=== PATIENT | male | born 1945 | race Caucasian/White ===

== ENCOUNTER 2020-11-24 10:51 | Emergency (ER) | payer MEDICARE, SELFPAY ==
[2020-11-24 10:53] VITALS: BP 155/78; PULSE 47; RESP 17; TEMP 36.7; O2SAT 98; BMI 28.7
[2020-11-24 11:01] VITALS: PULSE 57; RESP 22; O2SAT 99
--- NOTE | 2020-11-24 11:06 | EKG12_ITS ---
Test Reason : CP Blood Pressure : / mmHG Vent. Rate : 050 BPM Atrial Rate : 050 BPM P-R Int : 202 ms QRS Dur : 092 ms QT Int : 440 ms P-R-T Axes : -06 -09 046 degrees QTc Int : 401 ms Sinus bradycardia Otherwise normal ECG Confirmed by NICCI ANDREWS, NELSON ([id number]), business editor KERA MACKENZIE ([id number]) on 11/29/2020 11:00:22 AM Referred By: DAVID Confirmed By:SOLOMON GRAJEDA MD
--- NOTE | 2020-11-24 11:20 | RAD_ITS ---
STUDY: X-RAY CHEST REASON FOR EXAM: Male, 75 years old. Chest pain x 5 days and fever TECHNIQUE: Single AP portable view of the chest. COMPARISON: Comparison is made with prior study dated 08/18/2014. FINDINGS: EKG electrodes are seen. Stable elevation of the right hemidiaphragm. The lungs are clear. There is no demonstrated pleural abnormality. Normal size heart. Normal mediastinum and destiny. Normal visualized pulmonary arteries. There is atherosclerotic tortuosity of the aortic arch and descending thoracic aorta. There are diffuse degenerative changes of the visualized thoracic spine. Normal visualized ribs, clavicles, and shoulders. There is no demonstrated abnormality of the visualized soft tissue structures of the upper abdomen. RAD/Chest 1 View (Portable) IMPRESSION: No acute abnormality is seen. Electronically Signed: Michael Sherwood, at 12:09 EST , Service support ,
[2020-11-24] MEDS: Aspirin 81 MG TAB.CHEW 324 MG PO (11:23)
--- NOTE | 2020-11-24 11:24 | ED.VISSUMM ---
- ER Visit Summary Date of Service: 11/24/20 Chief Complaint: Chest pain History of Present Illness: The patient is a 75 M history of CAD with IL 11 years ago had 2 cardiac stents at that time. Currently is on Plavix and aspirin. Also is a history of hypertension high cholesterol and a DVT 30 years ago after having leg trauma. Patiently patient states that he has had left-sided chest pain intermittently the last 5 days. Not associated with exertion. When it came on 5 days ago he was at rest. He denies any shortness of breath associated with it. No nausea nor diaphoresis. Currently symptom-free. The pain is not pleuritic. It is not made better or worse with deep breathing. He denies any hemoptysis. He denies any leg swelling. He denies any leg pain. He has not had any heart caths since his cardiac stents 11 years ago. Physical Examination: Older male no acute distress vital signs stable afebrile. Pulse ox 98% on room air no signs of hypoxia. Patient currently symptom-free. HEENT exam unremarkable. Neck nontender no lymphadenopathy. No JVD. Lungs clear to auscultation bilaterally. Heart regular rhythm rate about 50 no murmur. Chest wall is nontender. No subcu air or bruising. Abdomen soft nontender normal bowel sounds no peritoneal signs. Patient moving all 4 extremities. Neurovascularly intact. Equal symmetrical radial pulses. Calves are nontender without edema or cords. Neurologically is awake alert with no focal motor deficit. Test Results: EKG shows a sinus bradycardia rate of 50 with no signs of IL or ischemia. No change from prior EKG from 2013. Chest x-ray portable 1 view shows no acute abnormality. Normal cardiac silhouette. CBC is normal. White count of 7. Hemoglobin 14. Chemistries are normal. Troponin normal. Repeat exam patient is doing well 12:44 PM. Without complaints. He is comfortable being discharged home with outpatient follow-up. Emergency Department Course and Treatment: Patient with atypical nonreproducible chest pain. Currently symptom-free. Prior cardiac history. Prior DVT 30 years ago after trauma. He has had no recent travel, surgery or immobilization. He has no calf pain, cords nor edema. No undergo cardiac work-up. Treatment Plan: Follow-up with his primary care physician. Return if worsening chest pain or associated with exertion or feels worse. Disposition: Discharge Impression: Acute atypical chest pain History of CAD, IL and 2 cardiac stents History of hypertension This note was generated with [employer] dictation software. It may contain incorrect words, spelling, and punctuation that were not noted in review of the chart prior to signing ED Disposition - Plan for ED Patient: Referrals: Josue Fletcher MD [Primary Care Provider] -
[2020-11-24 11:41] LABS: Anion Gap 5 (5-15); BUN 13 mg/dL (7-18); BUN/Creat Ratio 13.8 RATIO (10-20); Calcium,Total 8.9 mg/dL (8.5-10.1); Chloride 105 mmol/L (98-107); Creatinine, Serum 0.94 mg/dL (0.70-1.30); EST Glomerular Filtration Rate 83 mL/min (>60); Est Glom Filt Rate - Afr Amer 100 mL/min (>60); Estimated Creatinine Clearance 70.11 ml/min; Glucose 116 mg/dL (74-106); Potassium 3.8 mmol/L (3.5-5.1); Sodium Level 140 mmol/L (136-145)
[2020-11-24 12:00] VITALS: BP 108/72; PULSE 59; RESP 18; O2SAT 99
[2020-11-24 12:15] LABS: Absolute Lymphocyte Count 1.61 X10^3/uL (0.83-4.51); Absolute Neutrophil Count 4.4 X10^3/uL (2.0-7.7); Basophil# 0.03 X10^3/uL; Basophil% 0.4 % (0-1); Eosinophil# 0.23 X10^3/uL; Eosinophils% 3.2 % (0-5); Hematocrit 43.2 % (40-54); Hemoglobin 14.4 g/dL (13.0-16.5); Lymphocyte # 1.61 X10^3/ul (4.0); Lymphocyte % 22.2 % (19-41); Mean Corp Hgb Conc 33.3 g/dL (32-36); Mean Corpuscular Hgb 31.7 pg (27.0-32.0); Mean Corpuscular Volume 95.2 fL (80-94); Mean Platelet Vol. 10.6 fl (6.2-12.0); Monocyte# 0.94 X10^3/uL; NRBC Flagged by Analyzer 0 % (0-5); Neutrophil # 4.38 X10^3/uL (2.7-7.7); Neutrophil % 60.5 % (47-70); Platelet Count 270 K/mm3 (150-450); RBC Distribution Width CV 12.4 % (11.6-14.6); RBC Distribution Width SD 43.1 fl (35.1-43.9); Red Blood Count 4.54 M/mm3 (4.6-6.2); White Blood Count 7.2 K/mm3 (4.4-11.0)
--- NOTE | 2020-11-24 12:48 | DCINST.ED_ITS ---
ED Disposition - Plan for ED Patient: Disposition: Home or Assisted Living Instructions: ED Chest Pain, Uncertain Cause Referrals: Josue Fletcher MD [Primary Care Provider] - 3-5 Days Additional Instructions: You have atypical chest pain. All your tests are unremarkable and normal. There is no signs of a heart attack. Your chest x-ray and EKG both look good. This does not appear to be cardiac or heart related chest pain but that is alwa ys still a possibility even with normal test. Follow-up with your primary care physician. If you are feeling worse such as more frequent chest pain, chest pain associated with exertion or shortness of breath or your overall feeling worse return to be reevaluated.
[2020-11-24 12:54] VITALS: BP 136/69; PULSE 59; RESP 18; O2SAT 99
== END 2020-11-24 12:55 | disposition home or self-care (01) ==
PROVIDERS: Emergency Provider Emergency Medicine; PCP Family Medicine
DX: R07.89 Other chest pain (principal); I25.10 Atherosclerotic heart disease of native coronary artery without angina pectoris; I25.2 Old myocardial infarction; I10 Essential (primary) hypertension; E78.00 Pure hypercholesterolemia, unspecified; Z79.02 Long term (current) use of antithrombotics/antiplatelets; Z79.82 Long term (current) use of aspirin; Z86.718 Personal history of other venous thrombosis and embolism; Z95.5 Presence of coronary angioplasty implant and graft
CPT/HCPCS: 71045; 80048; 84484; 85025; 93005; 99284; A4216

== ENCOUNTER 2022-06-20 02:09 | Emergency (ER) | payer MEDICARE, SELFPAY ==
[2022-06-20 02:11] VITALS: BP 144/70; PULSE 55; RESP 11; TEMP 37.1; O2SAT 99; BMI 28.5
--- NOTE | 2022-06-20 02:22 | EKG12_ITS ---
Test Reason : CP Blood Pressure : / mmHG Vent. Rate : 054 BPM Atrial Rate : 054 BPM P-R Int : 226 ms QRS Dur : 092 ms QT Int : 428 ms P-R-T Axes : 057 007 054 degrees QTc Int : 405 ms Sinus bradycardia with 1st degree A-V block Low voltage QRS (Limb Leads) Confirmed by NANCY ANDREWS, ROSELYN ([id number]), book editor JOSUÉ ALVARADO ([id number]) on 06/21/2022 12:49:38 PM Referred By: DAI Confirmed By:ROSELYN CRUZ MD
--- NOTE | 2022-06-20 02:22 | RAD_ITS ---
STUDY: X-RAY CHEST REASON FOR EXAM: Male, 77 years old. chest pain TECHNIQUE: AP portable. 2:23 AM. COMPARISON: 11/24/2020. FINDINGS: LUNGS: No consolidation. No pneumothorax. MEDIASTINUM: Aorta tortuous and atherosclerotic. CARDIAC SILHOUETTE: Not enlarged. BONES AND SOFT TISSUES: Degenerative changes in the dorsal spine. RAD/Chest 1 View (Portable) IMPRESSION: No evidence of active intrathoracic disease. Electronically Signed: Bianca Abdul MD at 2:36 EDT ,
--- NOTE | 2022-06-20 02:23 | ED.VIS.CHEST ---
HPI History of Present Illness Chief Complaint: Chest Pain Detail of Chief Complaint: Left-sided chest pain Informant: patient Onset/Context/Timing Onset: Yesterday (2299) Activity at onset: sudden Timing: Continuous Quality: Positive for - (Unable to describe) Location: Left Chest Current Severity: Mild Maximum Severity: Moderate Worsened By: Nothing Relieved By: Nothing Associated Symptoms: Positive for - (There is no radiation.); Negative for Nausea, Vomiting, Diaphoresis, Dyspnea, Cough, Fever, Lightheadedness, Acid Reflux or Palpitations Narrative Narrative: Patient is a 77-year-old male with history of coronary disease status post myocardial infarction 12 years ago. He has 2 stents. He took Tylenol prior to going to bed. This occurred after he went to bed. He states he has pain left side of his chest. It was mild got slightly worse. He took a nitro pill at 0108 with no effect. He denied associated symptoms or radiation of the discomfort. He denies black or maroon-colored stool. He denies history of hiatal hernia, reflux or peptic ulcer disease. He does have history of hypothyroidism, hypercholesterolemia and hypertension. He was given 4 baby aspirin's by squad. He denies orthopnea or PND. He denies pedal edema. He denies dyspnea on exertion. Prior Similar Symptoms: No Recent Illness/Hospitalization: No CVD Risk Factors: Positive for Hypertension and Hypercholesterolemia; Negative for Diabetes, Family History 1' </=55 or Smoking PE Risk Factors: Negative for Recent Travel/Surgery, Recent Immobilization, Prior DVT or PE, Cancer or OCP + Smoking + >/=35 TAD Risk Factors: Positive for Hypertension; Negative for Marfan's Syndrome or Family History PFSH PFS Medical History no medical history no medical history (History of coronary disease, hypercholesterolemia, hypertension hypothyroidism) Home Medications aspirin 81 mg chewable tablet 81 mg PO DAILY@0800 08/18/14 [History Last Taken 08/17/14 08:30] atorvastatin 20 mg tablet 20 mg PO QHS 08/18/14 [History Last Taken 08/18/14 00:30] clopidogrel 75 mg tablet 75 mg PO DAILY 08/18/14 [History Last Taken 08/17/14 08:30] levothyroxine 112 mcg tablet (Synthroid) 112 mcg PO DAILY 08/18/14 [History Last Taken 08/17/14 08:30] lisinopril 5 mg tablet 5 mg PO QHS 08/18/14 [History Last Taken 08/18/14 00:30] Allergy/AdvReac Type Severity Reaction Status Date / Time coconut AdvReac Vomiting Verified 05/26/22 16:35 Surgical History no surgical history no surgical history (Patient states he has 2 stents.) Social History (Updated 06/20/22 @ 02:[address] Enmanuel Rivas MD) household members: spouse Smoking Status: Former smoker substance use type: does not use ROS ROS ED Constitutional Constitutional ED: Denies chills, fever(s), subjective, sweats or weight loss Eyes Eyes: Reports none ENT ENT ED: Denies ear pain, rhinorrhea or sore throat Cardiovascular Cardiovascular: Reports as per HPI; Denies orthopnea or paroxysmal nocturnal dyspnea Respiratory/Chest Respiratory/Chest: Denies cough, dyspnea, dyspnea on exertion, orthopnea or paroxysmal nocturnal dyspnea Gastrointestinal Gastrointestinal: Denies abdominal pain, diarrhea, melena, nausea or vomiting Genitourinary Genitourinary ED: Denies dysuria, hematuria or urinary frequency Musculoskeletal Musculoskeletal: Reports back pain and other Details: Patient reports history of low back pain. ; Denies arthralgias, myalgias or neck pain Integumentary Denies rash Neurologic Neurologic: Denies paresthesias or weakness Endocrine Endocrinology: Denies cold intolerance or heat intolerance Hematologic/Lymphatic Hematologic/Lymphatic: Denies easy bleeding, easy bruising or lymphadenopathy EXAM Physical Exam Const Vital Signs: 06/20/22 02:11 06/20/22 02:17 06/20/22 02:30 Temperature 98.7 F Temperature Source Temporal Pulse Rate 55 L Respiratory Rate 11 L Blood Pressure 144/70 H Blood Pressure Mean 94 Pulse Ox 99 97 Oxygen Delivery Method Room Air Room Air Room Air 06/20/22 03:08 06/20/22 04:01 06/20/22 04:04 Temperature Temperature Source Pulse Rate 52 L 51 L Respiratory Rate 17 16 Blood Pressure 126/65 H 124/64 H 124/64 H Blood Pressure Mean 85 84 84 Pulse Ox 97 95 Oxygen Delivery Method Room Air Room Air Positive well nourished and well developed General Appearance ED: well developed; Negative for pallor HEENT Reports moist mucous membranes HEENT Narrative: Ears normal. Nares patent. Mucosa moist. normocephalic and atraumatic Eyes PERRL and EOMs intact bilaterally General Eye ED: Negative for pale conjunctiva or scleral icterus Neck no lymphadenopathy, supple and no JVD Chest Wall inspection of chest normal and palpation of chest normal Resp normal respiratory effort and clear to auscultation bilaterally Cardio regular rhythm, S1 normal heart sound, S2 normal heart sound and no murmurs Rate: bradycardia Peripheral Pulses: pulses 2+ throughout GI normal to inspection, nondistended, normoactive bowel sounds, soft to palpation, non-tender and non-distended Palpation: Negative for splenomegaly or mass Back/Spine no CVA tenderness and no thoracic nor lumbar tenderness Extremity normal to inspection Extremity Narrative: PT and DP pulse are 2+ and symmetric. General Extremety ED: Negative for edema, pulses abnormal or tenderness General Extremity: Negative for edema or pulses abnormal Neuro oriented x3, CN's II-XII intact bilaterally and no sensory deficits noted Sensorium / Orientation: awake and alert Psych mental status grossly normal Skin no rashes or lesions noted and no wounds General Skin Exam: Negative for jaundice, pallor or other MDM MDM MDM Narrative Medical decision making narrative: Patient presents with atypical left-sided chest pain. Since he does have risk factors for coronary disease will obtain EKG, troponin and appropriate blood work. He was not given aspirin since he received 4 prior to arrival. Lab Data Attestation: I reviewed the patient's lab results. Lab results narrative: CBC is unremarkable. H&H 12.6 and 38.2 which is baseline. Basic metabolic panel is remarkable for glucose of 123. Troponin is normal at 20 however will need a 2-hour troponin. 2-hour troponin is 20. Delta is 0. Therefore, will discharge patient to home Labs: Laboratory Results - last 24 hr 06/20/22 06/20/22 06/20/22 02:20 02:20 04:30 WBC 8.7 RBC 3.94 L Hgb 12.6 L Hct 38.2 L MCV 97.0 H MCH 32.0 MCHC 33.0 RDW Std Deviation 45.1 H RDW Coeff of Kiko 12.5 Plt Count 235 MPV 10.2 Immature Gran % (Auto) 0.500 Neut % (Auto) 59.3 Lymph % (Auto) 23.8 [place] % (Auto) 13.0 H Eos % (Auto) 3.1 Baso % (Auto) 0.3 Absolute Neuts (auto) 5.2 Absolute Lymphs (auto) 2.08 Nucleated RBC % 0 Sodium 140 Potassium 3.7 Chloride 108 H Carbon Dioxide 28.0 Anion Gap 4 L BUN 16 Creatinine 0.77 Estim Creat Clear Calc 63.88 Est GFR (MDRD) Af Amer 125 Est GFR (MDRD) Non-Af 104 BUN/Creatinine Ratio 20.7 H Glucose 123 H Calcium 8.4 L Troponin I High Sens 20 20 Radiography Chest X-Ray - ED: 1 View and Read by ED Physician (View portable chest x-ray was independently reviewed and interpreted by me at 0231. Cardiac silhouette and size unremarkable. Perihilar regions unremarkable. Osseous trucks unremarkable. The film is slightly rotated. There is no evidence of any acute pathology.) Diagnostic Testing: Clinical Impression(s) from Imaging Studies Chest X-Ray 06/20/22 02:22 IMPRESSION: No evidence of active intrathoracic disease. Electronically Signed: Bianca Abdul MD at 2:36 EDT Reading Location ID and State: [facility] / [place] Tel , Service support , Rhythm Strip Rhythm Strip: Sinus bradycardia Rate: 48 Ectopy: None EKG Initial EKG: Attestation: I personally reviewed and interpreted this EKG as follows: Interpretation: Sinus Bradycardia (Ventricular rate is 54. There is evidence of first-degree heart block with TX interval of 226 ms. QS duration 92 ms. QT duration 428 ms. [place] is normal. There is no ischemic changes noted.) Discharge Plan Triage Chief Complaint: Chest Pain ED Provider: Enmanuel Rivas Dx/Rx/DC Orders Clinical Impression: Left-sided chest pain, History of coronary artery disease, History of hypothyroidism Instructions: ED Chest Pain, Noncardiac, ED Chest Pain, Uncertain Cause Prescriptions: No Action clopidogrel 75 MG tablet 75 mg PO DAILY Label Comments: anti-platelet aspirin 81 MG tablet,chewable 81 mg PO DAILY@0800 Label Comments: heart health lisinopril 5 MG tablet 5 mg PO QHS Label Comments: blood pressure atorvastatin 20 MG tablet 20 mg PO QHS Label Comments: cholesterol levothyroxine [Synthroid] 112 MCG tablet 112 mcg PO DAILY Label Comments: synthroid Primary Care Provider: Josue Fletcher Referrals: Josue Fletcher MD [Primary Care Provider] - 3-5 Days Disposition Disposition: Home, Self Care
[2022-06-20 02:29] LABS: Absolute Lymphocyte Count 2.08 X10^3/uL (0.83-4.51); Absolute Neutrophil Count 5.2 X10^3/uL (2.0-7.7); Basophil# 0.03 X10^3/uL; Basophil% 0.3 % (0-1); Eosinophil# 0.27 X10^3/uL; Eosinophils% 3.1 % (0-5); Hematocrit 38.2 % (40-54); Hemoglobin 12.6 g/dL (13.0-16.5); Lymphocyte # 2.08 X10^3/ul (0.83-4.51); Lymphocyte % 23.8 % (19-41); Mean Platelet Vol. 10.2 fl (6.2-12.0); Monocyte# 1.14 X10^3/uL; NRBC Flagged by Analyzer 0 % (0-5); Neutrophil # 5.18 X10^3/uL (2.7-7.7); Neutrophil % 59.3 % (47-70); Platelet Count 235 K/mm3 (150-450); RBC Distribution Width CV 12.5 % (11.6-14.6); RBC Distribution Width SD 45.1 fl (35.1-43.9); Red Blood Count 3.94 M/mm3 (4.6-6.2); White Blood Count 8.7 K/mm3 (4.4-11.0)
[2022-06-20 02:30] VITALS: O2SAT 97
[2022-06-20 02:56] LABS: Anion Gap 4 (5-15); BUN 16 mg/dL (7-18); BUN/Creat Ratio 20.7 RATIO (10-20); Calcium,Total 8.4 mg/dL (8.5-10.1); Chloride 108 mmol/L (98-107); Creatinine, Serum 0.77 mg/dL (0.70-1.30); EST Glomerular Filtration Rate 104 mL/min (>60); Est Glom Filt Rate - Afr Amer 125 mL/min (>60); Estimated Creatinine Clearance 63.88 ml/min; Glucose 123 mg/dL (74-106); Potassium 3.7 mmol/L (3.5-5.1); Sodium Level 140 mmol/L (136-145); Troponin-I HS (w/2H Reflex) 20 pg/mL (3.0-78.0)
[2022-06-20 03:08] VITALS: BP 126/65; PULSE 52; RESP 17; O2SAT 97
[2022-06-20 04:01] VITALS: BP 124/64
[2022-06-20 04:04] VITALS: BP 124/64; PULSE 51; RESP 16; O2SAT 95
[2022-06-20 04:26] LABS: Reflex Troponin-HS? (from REC) Y
[2022-06-20 05:02] LABS: Troponin-I HS 20 pg/mL (3.0-78.0)
[2022-06-20 05:41] VITALS: BP 154/75; PULSE 50; RESP 15; O2SAT 99
== END 2022-06-20 05:43 | disposition home or self-care (01) ==
PROVIDERS: Emergency Provider Emergency Medicine; PCP Family Medicine; Visit Provider Emergency Medicine
DX: R07.9 Chest pain, unspecified (principal); I25.10 Atherosclerotic heart disease of native coronary artery without angina pectoris; Z87.891 Personal history of nicotine dependence; I10 Essential (primary) hypertension; E78.00 Pure hypercholesterolemia, unspecified; E03.9 Hypothyroidism, unspecified; I44.0 Atrioventricular block, first degree; I25.2 Old myocardial infarction
CPT/HCPCS: 71045; 80048; 84484; 85025; 93005; 99284; A4216

== ENCOUNTER 2025-01-23 15:24 | Emergency (ER) | payer MEDICARE, SELFPAY ==
[2025-01-23 15:25] VITALS: BP 94/62; PULSE 72; RESP 18; TEMP 35.3; O2SAT 99
--- NOTE | 2025-01-23 15:41 | EKG12_ITS ---
Test Reason : DIZZINESS Blood Pressure : */* mmHG Vent. Rate : 72 BPM Atrial Rate : 72 BPM P-R Int : 238 ms QRS Dur : 84 ms QT Int : 398 ms P-R-T Axes : 67 -1 53 degrees QTcB Int : 435 ms Sinus rhythm with 1st degree A-V block Otherwise normal ECG Confirmed by NICCI ANDREWS, NELSON ([id number]), editorial manager DAVIDA MCKENZIE ([id number]) on 01/26/2025 10:57:51 AM Referred By: Confirmed By: NELSON GRAJEDA MD
[2025-01-23] MEDS: 0.9% Normal Saline (1000mL) 1,000 ML 50 ML IV (16:33)
[2025-01-23 16:43] LABS: Absolute Lymphocyte Count 0.89 X10^3/uL (0.83-4.51); Absolute Neutrophil Count 8.9 X10^3/uL (2.0-7.7); Basophil# 0.06 X10^3/uL; Basophil% 0.5 % (0-1); Eosinophil# 0.11 X10^3/uL; Hematocrit 37.3 % (40-54); Hemoglobin 11.9 g/dL (13.0-16.5); Lymphocyte # 0.89 X10^3/ul (0.83-4.51); Lymphocyte % 8.1 % (19-41); Mean Corp Hgb Conc 31.9 g/dL (32-36); Mean Corpuscular Hgb 31.7 pg (27.0-32.0); Mean Corpuscular Volume 99.5 fL (80-94); Mean Platelet Vol. 10.5 fl (6.2-12.0); Monocyte# 0.93 X10^3/uL; Monocyte% 8.5 % (0-10); NRBC Flagged by Analyzer 0 % (0-5); Neutrophil # 8.86 X10^3/uL (2.7-7.7); Neutrophil % 81.2 % (47-70); Platelet Count 302 K/mm3 (150-450); RBC Distribution Width CV 13.3 % (11.6-14.6); RBC Distribution Width SD 48.3 fl (35.1-43.9); Red Blood Count 3.75 M/mm3 (4.6-6.2); White Blood Count 10.9 K/mm3 (4.4-11.0)
--- NOTE | 2025-01-23 16:45 | RAD_ITS ---
PROCEDURE: CHEST 1 VIEW (PORTABLE) 01/23/2025 REASON FOR EXAM: STROKE TECHNIQUE: Frontal view of the chest. COMPARISON: 06/20/2022 FINDINGS: Mild cardiomegaly. Mild atherosclerotic calcification of the thoracic aorta No focal consolidation. No pneumothorax. No pleural effusion. Degenerative changes are identified within the thoracic spine. Mild degenerative changes of the right glenohumeral joint. RAD/Chest 1 View (Portable) IMPRESSION: No Acute Findings. Reading Location: [facility]
[2025-01-23 16:50] LABS: Prothrombin Time (Protime)PT. 13.7 SECONDS (11.7-14.9)
[2025-01-23 16:51] LABS: Partial Thromboplast Time 27.2 Seconds (24.1-36.2)
--- NOTE | 2025-01-23 17:09 | EDS_ITS ---
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 Chief complaint was dizziness and in triage note was noted as well, however the patient was not dizzy he states that he was very lightheaded he was not spinning objects were not spinning.. According to the patient he was working in his shop earlier today he states that he was feeling very hot and not well he went up took a break ate late breakfast and eventually went back down to the shop. Today around 2:30 PM he noted that he was in his shop became very hot lightheaded with sweating and he states that he developed tunnel vision. He states that he had to sit down he states that he has not been lightheaded like this in a very long time he states that this has happened 1 other time. 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 Family bedside noted that she had to sit him down and prevent him from falling/passing out. Patient states that he not drink much water today. At the time of my exam today here in the emergency department he states that he is back to his baseline [facility] Medical History Dizziness Home Medications ?Medication ?Instructions ?Recorded ?Last Taken ?Type aspirin 81 mg chewable tablet 81 mg PO DAILY@0800 05/2508/17/14 08:30 History atorvastatin 20 mg tablet 20 mg PO QHS 08/18/14 00:30 History clopidogrel 75 mg tablet 75 mg PO DAILY 08/18/1404/25 08:30 History levothyroxine 112 mcg tablet 112 mcg PO DAILY 08/18/14 08/17/14 08:30 History (Synthroid) lisinopril 5 mg tablet 5 mg PO QHS 08/18/14 4 00:30 History Allergy/AdvReac Type Severity Reaction Status Date / Time coconut AdvReac Vomiting Verified 01/23/25 15:28 Social History household members: spouse Smoking Status: Former smoker substance use type: does not use ROS ROS ED ROS Narrative Constitutional: Complains of lightheadedness as noted above denies fevers chills, dizziness, headaches Eyes: Denies change in vision double vision blurry vision Cardiovascular: Denies chest pain or palpitations Respiratory: Denies coughing wheezing shortness of breath Abdomen: Denies abdominal pain nausea vomit diarrhea : Denies urinary symptoms Neurological: States that 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 causing unequal smile on the left this is not new denies any other numbness or tingling Musculoskeletal: Denies back pain Skin: Denies rashes or lesions EXAM Physical Exam Narrative Exam Narrative: General: Patient was lying in bed rest comfortably did not appear to be in acute distress Head: Atraumatic, normocephalic Eyes: PERRL bilaterally, EOMI bilaterally, no conjunctival injection noted Neck: Soft, supple, trachea midline Cardiovascular: Regular rate and rhythm no murmurs gallops rubs noted Respiratory: Clear to auscultation bilaterally Abdomen: Soft, nondistended, nontender to palpation Extremities: +5/5 strength noted in the bilateral upper and lower extremities, radial pulse +2/4 in the bilateral extremities, no pedal edema on exam Neurological: Patient following commands knew that he was at [facility] year is 2024. NIH is 0 GCS 15. Patient completed finger-nose test bilaterally, difficulty Skin: Warm, dry, intact no rashes or lesions noted Const Vital Signs: 01/23/25 15:25 01/23/25 18:00 01/23/25 18:13 Temperature 95.5 F L 98.3 F Temperature Source Oral Oral Pulse Rate 72 81 Respiratory Rate 18 18 Blood Pressure 94/62 140/71 H 140/71 H Blood Pressure Mean 72 94 94 Pulse Ox 99 97 98 Oxygen Delivery Method Room Air Room Air Room Air MDM MDM MDM Narrative Medical decision making narrative: Patient is a 79-year-old male who presented to the emergency department chief complaint of lightheadedness and almost passing out. On the differential diagnose includes but not limited to vasovagal syncope, dehydration, ACS. Once workup is obtained reviewed he will be reevaluated. Patient began IV fluids for hydration. With static vital signs will be obtained. Patient CBC reviewed and showed no evidence leukocytosis white blood count of 10.9, hemoglobin 1.9, plate count of 302. Patient's INR normal at 1, PT of 13.7. Patient sodium normal at 30, test normal 4.2, creatinine was 1.26. Patient's troponin was noted be 15 with a delta troponin noted to be 14. Patient EKG reviewed and showed sinus rhythm with a rate of 72 bpm with evidence of first-degree AV block. Patient's chest x-ray was reviewed by myself which s howed no acute cardiopulmonary processes this was also read by radiology. Patient ambulated well here in the emergency department he feels much better and would like to go home at this point time. Patient was advised to ensure that he is adequately hydrating with plenty of fluids. He is vies follow-up with his primary care physician and return with worsening symptoms or any concerns. He is agreeable this plan as well as family member bedside all question concerns answered he is discharged home in stable condition. Lab Data Labs: Laboratory Results - last 24 hr 01/23/25 01/23/25 01/23/25 16:30 16:30 18:04 WBC 10.9 RBC 3.75 L Hgb 11.9 L Hct 37.3 L MCV 99.5 H MCH 31.7 MCHC 31.9 L RDW Std Deviation 48.3 H RDW Coeff of Kiko 13.3 Plt Count 302 MPV 10.5 Immature Gran % (Auto) 0.700 Neut % (Auto) 81.2 H Lymph % (Auto) 8.1 L [place] % (Auto) 8.5 Eos % (Auto) 1.0 Baso % (Auto) 0.5 Absolute Neuts (auto) 8.9 H Absolute Lymphs (auto) 0.89 Nucleated RBC % 0 PT 13.7 INR 1.0 APTT 27.2 Sodium 138 Potassium 4.2 Chloride 98 Carbon Dioxide 24.0 Anion Gap 16 H BUN 24 H Creatinine 1.26 H Est GFR (MDRD) Non-Af 58 L BUN/Creatinine Ratio 18.8 Glucose 170 H Calcium 9.7 Troponin T High Sens 15 Cancelled Troponin T Hi Sens 2 Hr 14 Radiography Diagnostic Testing: Clinical Impression(s) from Imaging Studies Chest X-Ray 01/23/25 16:45 IMPRESSION: No Acute Findings. Reading Location: [facility] Discharge Plan Triage Chief Complaint: Dizziness ED Provider: Bk Espinosa Dx/Rx/DC Orders Clinical Impression: Vasovagal near-syncope Prescriptions: No Action clopidogrel 75 MG tablet 75 mg PO DAILY Patient Comments: anti-platelet aspirin 81 MG tablet,chewable 81 mg PO DAILY@0800 Patient Comments: heart health lisinopril 5 MG tablet 5 mg PO QHS Patient Comments: blood pressure atorvastatin 20 MG tablet 20 mg PO QHS Patient Comments: cholesterol levothyroxine [Synthroid] 112 MCG tablet 112 mcg PO DAILY Patient Comments: synthroid Primary Care Provider: Josue Fletcher Referrals: Josue Flecther MD [Primary Care Provider] - Activity Restrictions/Additional Instructions: Follow-up with your family physician outpatient setting. Return with worsening symptoms or any concerns. Ensure that you are drinking plenty water to stay hydrated. Print Language: Malawian Disposition Disposition: Home, Self Care
[2025-01-23 17:17] LABS: Anion Gap 16 (5-15); BUN 24 mg/dL (4-19); BUN/Creat Ratio 18.8 RATIO (10-20); Calcium,Total 9.7 mg/dL (7.6-11.0); Chloride 98 mmol/L (98-108); Creatinine, Serum 1.26 mg/dL (0.70-1.20); EST Glomerular Filtration Rate 58 (>60); Glucose 170 mg/dL (70-99); Potassium 4.2 mmol/L (3.3-5.1); Sodium Level 138 mmol/L (133-145)
[2025-01-23 18:00] VITALS: BP 140/71; O2SAT 97
[2025-01-23 18:06] VITALS: O2SAT 97
[2025-01-23 18:13] VITALS: BP 140/71; PULSE 81; RESP 18; TEMP 36.8; O2SAT 98
--- NOTE | 2025-01-23 19:05 | ED.RN ---
called lab to inquire about troponin- will result.
[2025-01-23 19:18] LABS: Troponin T High Sens 2 HR 14 ng/L (<=22)
[2025-01-23 19:32] LABS: Troponin T High Sensitivity 15 ng/L (<=22)
== END 2025-01-23 20:33 | disposition home or self-care (01) ==
PROVIDERS: Emergency Provider Emergency Medicine; PCP Family Medicine; Visit Provider Emergency Medicine
DX: R55 Syncope and collapse (principal); R42 Dizziness and giddiness; I44.0 Atrioventricular block, first degree; Z87.891 Personal history of nicotine dependence; I25.10 Atherosclerotic heart disease of native coronary artery without angina pectoris; Z95.1 Presence of aortocoronary bypass graft; G51.0 Bell's palsy
CPT/HCPCS: 71045; 80048; 84484; 85025; 85610; 85730; 93005; 99285; A4216

== ENCOUNTER 2025-06-05 21:25 | Emergency (ER) | payer MEDICARE, SELFPAY ==
[2025-06-05 21:26] VITALS: BP 152/82; PULSE 62; RESP 14; TEMP 35.5; O2SAT 100; BMI 27.1
--- NOTE | 2025-06-05 22:06 | EKG12_ITS ---
Test Reason : SYNC Blood Pressure : */* mmHG Vent. Rate : 59 BPM Atrial Rate : 59 BPM P-R Int : 232 ms QRS Dur : 92 ms QT Int : 410 ms P-R-T Axes : 43 -2 43 degrees QTcB Int : 405 ms Sinus bradycardia with 1st degree A-V block with occasional Premature ventricular complexes Otherwise normal ECG Confirmed by ENDER ANDREWS, ANDREA ([id number]), fashion editor DAVIDA MCKENZIE ([id number]) on 06/08/2025 9:01:17 AM Referred By: MARGARITO Confirmed By: ANDREA HANDLEY MD
--- NOTE | 2025-06-05 22:06 | CT_ITS ---
PROCEDURE: BRAIN/HEAD WITHOUT CONTRAST 06/05/2025 REASON FOR EXAM: SYNCOPE TECHNIQUE: BRAIN/HEAD WITHOUT CONTRAST Coronal and Sagittal reconstruction series were provided. One or more dose reduction techniques were used (e.g., Automated exposure control, adjustment of the mA and/or kV according to patient size, use of iterative reconstruction technique. RADIATION DOSE SUMMARY: CTDlvol: 44.99 mGy DLP: 829.85 mGycm COMPARISON: None. FINDINGS: No acute intracranial hemorrhage, extra-axial collection, mass effect or acute infarct. Mild age-appropriate generalized brain parenchymal volume loss. Absent [place] ocular lenses. Atherosclerotic vascular calcifications. Intact skull base and calvarium. Clear paranasal sinuses and mastoid air cells. CT/Brain/Head without Contrast IMPRESSION: No acute intracranial abnormality. Reading Location: [id number]
--- NOTE | 2025-06-05 22:08 | EDS_ITS ---
HPI History of Present Illness Chief Complaint: Syncope Informant: patient and spouse/S.O. Narrative Narrative: Patient is an 80-year-old male with past medical history of hypothyroidism hyperlipidemia and CAD. He states that today he got up from his chair to use the bathroom when he did so and took his shoes off and sat down and put his feet up. He states as he did this he had a sensation where everything was going dark and he felt like his body was buzzing. He states that this lasted just a few seconds and resolved but seem to occur multiple times. Secondary to this he was brought in for evaluation. Patient states there is no palpitations or chest discomfort no headache no recent bouts of nausea vomiting diarrhea or blood noted within his urine or stool. At time of arrival in ER patient reports he feels normal. [facility] Medical History (Updated 06/05/25 @ 23:[address] Akshat Calderón DO) Diabetes Hypertension Hyperlipemia Dizziness Home Medications ?Medication ?Instructions ?Recorded ?Last Taken ?Type aspirin 81 mg chewable tablet 81 mg PO DAILY@0800 10/05/2508/17/14 08:30 History atorvastatin 20 mg tablet 20 mg PO QHS 08/18/14 00:30 History levothyroxine 112 mcg tablet 112 mcg PO DAILY 08/18/14 08/17/14 08:30 History (Synthroid) lisinopril 5 mg tablet 5 mg PO QHS 08/18/14 4 00:30 History metformin 500 mg tablet,extended 1,000 mg PO DAILY Unknown History release 24 hr Allergy/AdvReac Type Severity Reaction Status Date / Time coconut AdvReac Vomiting Verified 06/05/25 21:31 Surgical History (Updated 06/05/25 @ 22:12 by Anahi Herbert) Hx of heart surgery History of left hip replacement History of bilateral knee replacement Social History household members: spouse Smoking Status: Former smoker substance use type: does not use ROS ROS ED Constitutional Constitutional ED: Denies chills or fever(s) Eyes Eyes: Reports change in vision ENT ENT ED: Denies sore throat Cardiovascular Cardiovascular: Reports other Details: Positive near syncope ; Denies chest pain, palpitations or racing heartbeat Respiratory/Chest Respiratory/Chest: Denies cough or dyspnea Gastrointestinal Gastrointestinal: Denies abdominal pain, diarrhea, nausea or vomiting Genitourinary Genitourinary ED: Denies dysuria or hematuria Musculoskeletal Musculoskeletal: Denies myalgias Integumentary Denies rash Neurologic Neurologic: Reports paresthesias; Denies headache(s) Hematologic/Lymphatic Hematologic/Lymphatic: Denies easy bleeding or easy bruising EXAM Physical Exam Const Vital Signs: 06/05/25 21:26 06/05/25 22:10 06/05/25 22:30 Temperature 96 F L Temperature Source Temporal Pulse Rate 62 62 Pulse Rate [Lying] Pulse Rate [Sitting (for 1 minute prior to obtaining)] Pulse Rate [Standing (for 1 minute prior to obtaining)] Respiratory Rate 14 18 Respiratory Effort Normal Non-Labored Respiratory Pattern Normal Blood Pressure 152/82 H 144/66 H Blood Pressure [Lying] Blood Pressure [Sitting (for 1 minute prior to obtaining)] Blood Pressure [Standing (for 1 minute prior to obtaining)] Blood Pressure Mean 105 92 Blood Pressure Mean [Lying] Blood Pressure Mean [Sitting (for 1 minute prior to obtaining)] Blood Pressure Mean [Standing (for 1 minute prior to obtaining)] Pulse Ox 100 98 Oxygen Delivery Method Room Air Room Air 06/05/25 22:50 06/05/25 23:40 Temperature 98 F Temperature Source Pulse Rate 62 Pulse Rate [Lying] 65 Pulse Rate [Sitting (for 1 minute prior to obtaining)] 60 Pulse Rate [Standing (for 1 minute prior to obtaining)] 76 Respiratory Rate 18 Respiratory Effort Respiratory Pattern Blood Pressure 164/83 H Blood Pressure [Lying] 143/70 H Blood Pressure [Sitting (for 1 minute prior to obtaining)] 137/66 H Blood Pressure [Standing (for 1 minute prior to obtaining)] 145/71 H Blood Pressure Mean 110 Blood Pressure Mean [Lying] 94 Blood Pressure Mean [Sitting (for 1 minute prior to obtaining)] 89 Blood Pressure Mean [Standing (for 1 minute prior to obtaining)] 95 Pulse Ox 96 Oxygen Delivery Method Positive well nourished and well developed General Appearance ED: well developed; Negative for pallor HEENT Reports dry mucous membranes HEENT Narrative: Normocephalic atraumatic No tongue or lip swelling no oral lesions no airway edema or compromise; no secondary findings in the posterior pharynx to suggest infection Mucous membranes are dry and tacky Mouth ED: Yes dry mucous membranes Mouth: dry mucous membranes Eyes PERRL and EOMs intact bilaterally General Eye ED: Negative for pale conjunctiva or scleral icterus Neck supple Resp normal respiratory effort and clear to auscultation bilaterally Cardio regular rate and regular rhythm Rate: other Other Details: Radial and carotid pulses are equal and symmetric GI normal to inspection, nondistended, normoactive bowel sounds, non-tender, non- distended and no masses Auscultation: normoactive bowel sounds Palpation: soft Extremity normal to inspection Neuro oriented x3, CN's II-XII intact bilaterally and no sensory deficits noted Neuro Narrative: GCS of 15 Cranial nerves II through XII are grossly intact without focal neurologic deficit No pronator drift no dysmetria no truncal ataxia No nystagmus NIH stroke scale score of 0 Sensorium / Orientation: alert Motor Exam: strength 5/5 throughout Psych mental status grossly normal Skin no rashes or lesions noted, no wounds and No skin turgor normal Skin Narrative: Skin turgor is increased General Skin Exam: Negative for jaundice or pallor MDM MDM MDM Narrative Medical decision making narrative: Patient arrived to the ER with stable vitals and normal neurologic exam reported feeling normal at the time of evaluation. His symptoms are consistent with near syncope and therefore basic labs and head CT were obtained. There is concern that he may have acute blood loss anemia versus acute kidney injury vers us electrolyte abnormality. There is concern he could have a spontaneous subarachnoid subdural hemorrhage or brain mass as a cause. An EKG was performed showing an occasional PVC but no acute ischemic findings or cardiac dysrhythmia. Patient's labs revealed no clinically significant findings and head CT was normal. Orthostatic vitals were technically normal as well going against dehydration as a potential cause. The patient was ambulated in the ER and did well with a steady gait. Just prior to discharge he reported having a similar sensation as he did at home. 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 This lasted only a few seconds and then resolved and he reported feeling normal once again. Because of this event and his history this is most likely the cause of his recurrent symptoms. I discussed the case with the food and beverage assistant manager on-call Dr. Galvez. He states that because the patient's vitals are stable at this time the labs revealed no clinically significant findings and the symptoms are short- lived there is no need for an emergent pacemaker and this can be followed up as an outpatient. Patient and family were informed of this and as he is hemodynamically stable at this time will be discharged. History & Record Review Discussion w/independent historian: Patient and Significant other Lab Data Attestation: I reviewed the patient's lab results. Labs: Laboratory Results - last 24 hr 06/05/25 21:38 WBC 8.8 RBC 4.35 L Hgb 13.3 Hct 40.2 MCV 92.4 MCH 30.6 MCHC 33.1 RDW Std Deviation 47.0 H RDW Coeff of Kiko 13.7 Plt Count 267 MPV 10.6 Immature Gran % (Auto) 0.600 Neut % (Auto) 59.0 Lymph % (Auto) 24.3 [place] % (Auto) 12.1 H Eos % (Auto) 3.7 Baso % (Auto) 0.3 Absolute Neuts (auto) 5.2 Absolute Lymphs (auto) 2.15 Nucleated RBC % 0 Sodium 139 Potassium 4.0 Chloride 100 Carbon Dioxide 25.1 Anion Gap 14 BUN 14 Creatinine 0.78 Estim Creat Clear Calc 76.04 Est GFR (MDRD) Non-Af 90 BUN/Creatinine Ratio 18.3 Glucose 155 H Calcium 9.3 Magnesium 2.4 H TSH 0.508 Radiography Diagnostic Testing: Clinical Impression(s) from Imaging Studies Brain CT 06/05/25 22:06 IMPRESSION: No acute intracranial abnormality. Reading Location: [facility] Management Discussion w/another healthcare provider: Social And Human Services Assistant Discharge Plan Triage Chief Complaint: Syncope ED Provider: Akshat Calderón Dx/Rx/DC Orders Clinical Impression: Near syncope, PVC (premature ventricular contraction), Hypothyroidism, Coronary artery disease Instructions: Causes of Syncope, Arrhythmias Prescriptions: No Action aspirin 81 MG tablet,chewable 81 mg PO DAILY@0800 Patient Comments: heart health lisinopril 5 MG tablet 5 mg PO QHS Patient Comments: blood pressure atorvastatin 20 MG tablet 20 mg PO QHS Patient Comments: cholesterol levothyroxine [Synthroid] 112 MCG tablet 112 mcg PO DAILY Patient Comments: synthroid metformin 500 mg tablet extended release 24 hr 1,000 mg PO DAILY Primary Care Provider: Josue Fletcher: Juan Galvez MD [Med Staff - Active Staff] - Josue Fletcher MD [Primary Care Provider] - Activity Restrictions/Additional Instructions: Your workup today revealed normal labs and a normal head CT. However while you were in the hospital you did have a short bout where your heart rate dropped into the 20s and 30s and you had a brief episode of a cardiac pause/dysrhythmia. This is the cause of your near passing out events. He will need to follow-up with Dr. Galvez to discuss the pros and cons of potential pacemaker placement. If your bouts of near syncope/passing out return and are short-lived like they were in the ER this is okay/acceptable. However if they are reoccurring frequently or they are lasting longer than you will need to be reseen as you may need an emergent pacemaker placed. Please continue all of your home medications as previously directed. Print Language: Divehi Disposition Disposition: Home, Self Care Discharge Date/Time: 06/05/25 23:51
--- OUTSIDE RECORDS SUMMARY | 2025-06-05 22:20 | XMS RPT_ITS | CCD ---
Author Organization [facility] Care Team Providers Care Overhead Crane Inspector Name Role Phone Josue Aguilera MD Primary Care Provider Josue Aguilera MD Primary Care Provider Josue Aguilera MD Unavailable Josue Aguilera MD Primary Care Provider Haagen CENTRAL SU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.Lacey COLBERT Unavailable Suppan CENTRAL SU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.Mayo COLBERTMichaela A Unavailable [phone] Suppalyssa CENTRAL SU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.SAYRA Michaela A Unavailable Andres PT, Karlie Unavailable Marcos West RN Unavailable Josue Aguilera Primary Care Unavailable Bk Espinosa Attending Unavailable Marcos West RN Unavailable Dr. Josue Aguilera MD Primary Care Provider Dr. Bk Espinosa DO Emergency Provider RAVIN HOUGH Referring Unavailable JOSUE AGUILERA Primary Care Unavailable RAVIN HOUGH Referring Unavailable JOSUE AGUILERA Primary Care Unavailable KEITH SOTO Consulting Unavailnelly e RAVIN HOUGH Admitting Unavailable RAVIN HOUGH Attending Unavailable JOSUE AGUILERA Primary Care Unavailable JOSUE AGUILERA Primary Care Unavailable MICHAELA HEART Attending Unavailable JOSUE AGUILERA Primary Care Unavailable MICHAELA HEART Attending Unavailable JOSUE AGUILERA Referring Unavailable JOSUE AGUILERA Primary Care Unavailable JOSUE AGUILERA Attending Unavailable JOSUE AGUILERA Primary Care Unavailable JOSUE AGUILERA Primary Care Unavailable RAVIN HOUGH Attending Unavailable JOSUE AGUILERA Primary Care Unavailable RAVIN HOUGH Attending Unavailable MICHAELA HEART Attending Unavailable JOSUE AGUILERA Primary Care Unavailable MICHAELA HEART Referring Unavailable JOSUE AGUILERA Primary Care Unavailable JOSUE AGUILERA Primary Care Unavailable RAVIN HOUGH Referring Unavailable JOSUE AGUILERA Attending Unavailable JOSUE AGUILERA Primary Care Unavailable MICHAELA HEART Referring Unavailable JOSUE AGUILERA Primary Care Unavailable RAVIN HOUGH Attending Unavailable JOSUE AGUILERA Primary Care Unavailable MICHAELA HEART Referring Unavailable Allergies Allergy Classification Reported Allergen(s) Allergy Type Date of Onset Reaction(s) Facility (20 sources) coconut allergenic extract; Translations: [COCONUT] Drug Allergy 02-11-2010 Vomiting [facility] (2 sources) Coconut extract Drug Allergy 05-26-2022 Vomiting [facility] (1 source) Coconut extract Drug Allergy 01-23-2025 [facility] Repository Medications Current Medications Medication Drug Class(es) Dates Sig (Normalized) Sig (Original) acetaminophen 500 mg oral tablet (5 sources) Start: 12-30-2024 End: 01-08-2025 take 2 tablets by mouth every eight hours as needed acetaminophen (TYLENOL EXTRA STRENGTH) 500 mg tablet Take 2 tablets by mouth every 8 hours as needed for pain for up to 7 days. 42 tablet 01/01/2025 10:46 AM EST 12/30/2024 01/08/2025 Active aspirin 81 mg delayed release oral tablet (20 sources) Platelet Aggregation Inhibitor, Nonsteroidal Anti-inflammatory Drug Start: 12-30-2024 End: 2025 take 1 tablet by mouth twice daily aspirin, enteric coated (ECOTRIN LOW STRENGTH) 81 mg EC tablet Take 1 tablet by mouth two times a day for 28 days. 56 tablet 01/01/2025 10:46 AM EST 12/30/2024 Active Start: 07-01-2024 End: 07-01-2025 aspirin, enteric coated (ASP IRIN, ENTERIC COATED) 81 mg EC tablet [The details of the medication are not available because there are pending changes by a home health clinician.] 30 tablet 11 07/01/2024 07/01/2025 Active Start: 12-03-2023 End: 07-01-2025 take 1 tablet by mouth once daily aspirin, enteric coated (ASPIRIN, ENTERIC COATED) 81 mg EC tablet Take 1 tablet by mouth once daily. 30 tablet 11 07/01/2024 07/01/2025 Active Start: 08-18-2014 take 1 tablet by ayla th once daily Aspirin 81 MG tablet,chewable Active 81 mg PO DAILY@0800 August 18, 2014 12:00am Start: 07-29-2012 End: 11-26-2023 take 1 tablet by mouth once daily at mealtime Aspirin 81 mg Tab Take 1 tablet by mouth once daily. Take with food. 30 tablet 11 07/29/2012 11/26/2023 Discontinued (Other) Comment on above: Take 1 tablet by ayla th once daily. Take with food. Take 1 tablet by ayla th once daily. atorvastatin 20 mg oral tablet (20 sources) HMG-CoA Reductase Inhibitor Start: 08-18-20 End: 10-06-20 take 1 tablet by mouth once daily atorvastatin (LIPITOR) 20 mg tablet Indications: Other hyperlipidemia Take 1 tablet by mouth once daily. 90 tablet 3 10/06/2024 Active Comment on above: Take 1 tablet by ayla th once daily. clopidogrel 75 mg oral tablet (20 sources) P2Y12 Platelet Inhibitor Start: 08-18-20 End: 01-08-20 take 1 tablet by mouth once daily Clopidogrel 75 MG tablet Active 75 mg PO DAILY August 18, 2014 12:00am Comment on above: Take 1 tablet by ayla th once daily. docusate sodium 100 mg oral capsule (18 sources) Start: 12-30-19 take 1 capsule by mouth twice daily docusate sodium (COLACE) 100 mg capsule Take 1 capsule by mouth two times a day. Take colace while taking narcotics to decrease your risk of constipation 60 capsule 01/01/2025 10:46 AM EST 12/30/2024 Active levothyroxine sodium 0.112 mg oral tablet (20 sources) l-Thyroxine Start: 12-12-19 End: 12-12-19 take 1 tablet by mouth once daily levothyroxine (SYNTHROID) 112 mcg tablet Indications: Hypothyroidism, unspecified type Take 1 tablet by mouth once daily. 90 tablet 3 12/12/2024 12/12/2025 Active Start: 08-18-2014 End: 07-01-2024 take 1 tablet by mouth once daily levothyroxine (SYNTHROID) 112 mcg tablet Indications: Hypothyroidism, unspecified type Take 1 tablet by mouth once daily. 90 tablet 1 07/01/2024 Active Comment on above: Take 1 tablet by ayla th once daily. lisinopril 5 mg oral tablet (20 sources) Angiotensin Converting Enzyme Inhibitor Start: 08-18-20 End: 10-06-20 take 1 tablet by mouth once daily lisinopril (ZESTRIL) 5 mg tablet Indications: 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 coronary artery of [place] heart without angina pectoris , Essential hypertension Take 1 tablet by mouth once daily. 90 tablet 3 10/06/2024 Active Comment on above: Take 1 tablet by ayla th once daily. meloxicam 15 mg oral tablet (10 sources) Nonsteroidal Anti-inflammatory Drug Start: 12-30-19 End: 01-16-20 take 1 tablet by mouth once daily meloxicam (MOBIC) 15 mg tablet Take 1 tablet by mouth once daily for 14 days. 14 tablet 01/01/2025 10:46 AM EST 12/30/2024 01/15/2025 Active 24 hr metFORMIN hydrochloride 500 mg extended release oral tablet (20 sources) Biguanide Start: 07-01-20 End: 01-16-20 take 2 tablets by mouth once daily at breakfast metFORMIN ER (GLUCOPHAGE XR) 500 mg 24 hr tablet Indications: Controlled type 2 diabetes mellitus without complication, without long-term current use of insulin (HCC) Take 2 tablets by mouth daily with breakfast. 180 tablet 3 01/15/2025 01/15/2026 Active Start: 06-02-2024 End: 07-02-2024 take 1 tablet by mouth once daily at breakfast metFORMIN ER (GLUMETZA) 500 mg 24 hr tablet Indications: Controlled type 2 diabetes mellitus without complication, without long-term current use of insulin (HCC) Take 1 tablet by mouth daily with breakfast. 30 tablet 06/02/2024 07/01/2024 Discontinued Start: 05-29-2024 End: 05-29-2025 take 1 tablet by mouth once daily at breakfast metFORMIN (GLUCOPHAGE) 500 mg tablet Indications: Controlled type 2 diabetes mellitus without complication, without long-term current use of insulin (HCC) Take 1 tablet by mouth daily with breakfast. 30 tablet 11 05/29/2024 06/02/2024 Discontinued (Clinical Decision) molnupiravir 200 mg capsule (4 sources) Start: 10-04-2023 End: 10-09-2023 take 4 capsules by mouth twice daily molnupiravir 200 mg capsule Indications: COVID-19 Take 4 capsules by mouth two times a day for 5 days. 40 capsule 0 10/04/2023 10/09/2023 Active Start: 10-04-2023 End: 10-04-2023 take 4 capsules by mouth twice daily molnupiravir 200 mg capsule Indications: COVID-19 Take 4 capsules by mouth two times a day for 5 days. 40 capsule 0 10/04/2023 10/04/2023 Discontinued Start: 10-03-2023 End: 10-08-2023 take 4 capsules by mouth twice daily molnupiravir 200 mg capsule Indications: COVID-19 Take 4 capsules by mouth two times a day for 5 days. 40 capsule 0 10/03/2023 10/08/2023 Active Comment on above: Take 4 capsules by m outh two times a day for 5 days. mupirocin 0.02 mg/mg topical ointment (1 source) RNA Synthetase Inhibitor Antibacterial Start: 12-10-19 End: 12-26-19 25 mupirocin (BACTROBAN) 2 % ointment Apply 0.5 inch with cotton swab (Q-tip) to each nostril in the morning and evening for 5 days prior to and including day of surgery. 22 g 12/10/2024 12/26/2024 Active naloxone hydrochloride 40 mg/ml nasal spray (18 sources) Opioid Antagonist Start: 12-30-19 25 naloxone 4 mg/actuation nasal spray (NARCAN) Use 1 spray in one nostril as needed for overdose. May repeat every 2 to 3 min in alternating nostrils until medical assistance is available 2 Each 12/30/2024 Active nitroglycerin 0.4 mg sublingual tablet (20 sources) Nitrate Vasodilator Start: 08-28-20 16 End: 05-05-20 21 nitroglycerin sublingual (NITROQUICK) 0.4 mg SL tablet Dissolve 1 tablet under the tongue every 5 minutes as needed for chest pain, up to 3 doses. If no relief, call 911. 3 Bottle of 25 1 05/05/2021 Active Comment on above: Dissolve 1 tablet un luke the tongue every 5 minutes as needed for chest pain, up to 3 doses. If no relief, call 911. oxyCODONE hydrochloride 5 mg oral tablet (5 sources) Opioid Agonist Start: 12-30-19 End: 01-08-20 take 1 tablet by mouth every four hours as needed oxyCODONE IR (ROXICODONE) 5 mg immediate release tablet Indications: Acute postoperative pain Take 1-2 tablets by mouth every 4 hours as needed for pain for up to 7 days. for pain. 50 tablet 01/01/2025 10:46 AM EST 12/30/2024 01/08/2025 Active pantoprazole 20 mg delayed release oral tablet (18 sources) Proton Pump Inhibitor Start: 12-30-19 End: 01-16-20 take 1 tablet by mouth once daily pantoprazole DR (PROTONIX) 20 mg tablet Take 1 tablet by mouth once daily for 14 days. 14 tablet 01/01/2025 10:46 AM EST 12/30/2024 Active Completed/Discontinued Medications Medication Drug Class(es) Dates Sig (Normalized) Sig (Original) benzonatate 100 mg oral capsule (13 sources) Non-narcotic Antitussive Start: 11-28-2024 End: 01-15-2025 take 1 capsule by mouth every eight hours as needed benzonatate (TESSALON PERLE) 100 mg capsule [The details of the medication are not available because there are pending changes by a home health clinician.] 30 capsule 11/28/2024 01/15/2025 Discontinued (Discontinued by Patient) Problems Active Problems Problem Classification Problem Date Documented Da te Episodic/Chronic Coronary atherosclerosis and other heart disease (20 sources) Coronary atherosclerosis; Translations: [Atherosclerotic heart disease of [place] coronary artery without angina pectoris] Onset: 02-21-2010 Resolved: 03-13-2022 Chronic Comment on above: Status post interven tion with 2 stents placement in 2004 at [facility] Diabetes mellitus without complication (20 sources) Type 2 diabetes mellitus without complication; Translations: [Type 2 diabetes mellitus without complications] Onset: 05-29-2024 05-29-2024 Chronic Diabetes mellitus without complication (1 source) Hyperglycemia; Translations: [Hyperglycemia, unspecified] Episodic Disorders of lipid metabolism (20 sources) Hyperlipidemia; Translations: [Other hyperlipidemia] Onset: 07-13-2009 Chronic Essential hypertension (20 sources) Essential hypertension; Translations: [Essential (primary) hypertension] Onset: 11-19-2019 Chronic Hyperplasia of prostate (20 sources) Nodular prostate without urinary obstruction; Translations: [Nodular prostate without lower urinary tract symptoms] Onset: 09-19-2007 02-18-2010 Chronic Osteoarthritis (5 sources) Osteoarthritis of left hip joint; Translations: [Unilateral primary osteoarthritis, left hip] Onset: 10-07-2024 10-07-2024 Chronic Other circulatory disease (2 sources) H/O: heart disorder; Translations: [Personal history of other diseases of the circulatory system] 06-28-2022 Episodic Other connective tissue disease (3 sources) History of repair of hip joint; Translations: [Presence of left artificial hip joint] 10-07-2024 Chronic Other connective tissue disease (20 sources) History of total knee arthroplasty; Translations: [Presence of artificial knee joint, bilateral] Onset: 01-14-2007 12-10-2024 Chronic Other connective tissue disease (18 sources) History of total hip arthroplasty; Translations: [Presence of left artificial hip joint] Onset: 12-31-2024 12-31-2024 Chronic Other connective tissue disease (1 source) Presence of left artificial hip joint; Translations: [Status post left hip replacement] Onset: 2025 Chronic Other connective tissue disease (1 source) Pain in right foot; Translations: [Pain in right foot] 05-20-2021 Episodic Other ear and sense organ disorders (1 source) Impacted cerumen in left ear; Translations: [Impacted cerumen, left ear] 05-28-2024 Episodic Other gastrointestinal disorders (18 sources) Dysphagia; Translations: [Dysphagia, unspecified] Onset: 01-02-2025 01-02-2025 Episodic Other non-traumatic joint disorders (1 source) Pain in right shoulder; Translations: [Pain in joint, shoulder region] 03-07-2021 Episodic Other non-traumatic joint disorders (4 sources) Hip pain; Translations: [Pain in left hip] 09-02-2024 Episodic Other non-traumatic joint disorders (2 sources) Pain in left hip; Translations: [Pain in left hip] Onset: 12-10-2024 Episodic Other nutritional; endocrine; and metabolic disorders (20 sources) Metabolic syndrome X; Translations: [Metabolic syndrome] Onset: 07-29-2012 Chronic Other screening for suspected conditions (not mental disorders or infectious disease) (3 sources) Patient encounter status; Translations: [Encounter for screening for malignant neoplasm of colon] 05-28-2024 Episodic Other upper respiratory disease (2 sources) Hoarse; Translations: [Dysphonia] 01-06-2025 Episodic Spondylosis; intervertebral disc disorders; other back problems (2 sources) Low back pain; Translations: [Lumbar pain] Episodic Syncope (2 sources) Syncope and collapse; Translations: [Vasovagal symptom] Onset: 02-03-2025 01-23-2025 Episodic Thyroid disorders (20 sources) Hypothyroidism; Translations: [Hypothyroidism, unspecified] Onset: 07-09-2006 Resolved: 02-21-2010 Chronic Unclassified (1 source) Dysmetabolic syndrome; Translations: [Dysmetabolic syndrome] Onset: 07-29-2012 Past or Other Problems Problem Classification Problem Date Documented Da te Episodic/Chronic Abdominal pain (20 sources) Flank pain; Translations: [Unspecified abdominal pain] Onset: 02-21-2010 Resolved: 12-19-2016 12-19-2016 Episodic Acute cerebrovascular disease (20 sources) Hemorrhage into subarachnoid space of neuraxis; Translations: [Nontraumatic subarachnoid hemorrhage, unspecified] Onset: 11-18-2023 Resolved: 11-28-2024 11-26-2023 Chronic Acute myocardial infarction (20 sources) Myocardial infarction; Translations: [Non-ST elevation (NSTEMI) myocardial infarction] Onset: 02-12-2010 Resolved: 12-19-2016 12-19-2016 Chronic Cardiac dysrhythmias (20 sources) Sinus bradycardia; Translations: [Bradycardia, unspecified] Onset: 02-12-2010 Resolved: 02-21-2010 06-22-2017 Episodic Coronary atherosclerosis and other heart disease (20 sources) Stent in anterior descending branch of left coronary artery; Translations: [Presence of coronary angioplasty implant and graft] Onset: 02-21-2010 Resolved: 12-19-2016 06-22-2016 Episodic Immunizations and screening for infectious disease (1 source) Encounter for immunization; Translations: [Encounter for immunization] Onset: 06-02-2024 Episodic Nonspecific chest pain (20 sources) Left sided chest pain; Translations: [Chest pain, unspecified] Onset: 07-13-2009 Resolved: 02-21-2010 02-21-2010 Episodic Other circulatory disease (20 sources) Elevated blood-pressure reading without diagnosis of hypertension; Translations: [Elevated blood-pressure reading, without diagnosis of hypertension] Onset: 06-03-2009 Resolved: 11-19-2019 11-19-2019 Episodic Other circulatory disease (20 sources) History of subarachnoid hemorrhage; Translations: [Personal history of other diseases of the circulatory system] Onset: 11-28-2024 11-28-2024 Episodic Other circulatory disease (1 source) Personal history of other diseases of the circulatory system; Translations: [History of subarachnoid hemorrhage] Onset: 11-28-2024 Episodic Other gastrointestinal disorders (1 source) Dysphagia, unspecified; Translations: [Dysphagia, unspecified type] Onset: 01-02-2025 Episodic Other gastrointestinal disorders (1 source) Other dysphagia; Translations: [Other dysphagia] Onset: 01-02-2025 Episodic Other nervous system disorders (20 sources) Ramirez's palsy; 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] Onset: 05-03-2007 Resolved: 12-19-2016 12-19-2016 Episodic Other nervous system disorders (1 source) Other acute postprocedural pain; Translations: [Acute postoperative pain] Onset: 12-31-2024 Episodic Other non-traumatic joint disorders (20 sources) Pain in lower limb; Translations: [Pain in unspecified knee] Onset: 01-08-2007 Resolved: 12-19-2016 12-19-2016 Episodic Other non-traumatic joint disorders (4 sources) Pain in left knee; Translations: [Pain in joint, lower leg] Onset: 09-02-2024 09-02-2024 Episodic Other nutritional; endocrine; and metabolic disorders (20 sources) H/O: hypothyroidism; Translations: [Personal history of other endocrine, nutritional and metabolic disease] Onset: 09-14-2022 Resolved: 10-03-2023 09-14-2022 Episodic Other skin disorders (20 sources) Seborrheic keratosis; Translations: [Other seborrheic keratosis] Onset: 12-08-2008 Resolved: 12-19-2016 12-19-2016 Episodic Other upper respiratory infections (3 sources) Acute upper respiratory infection; Translations: [Acute upper respiratory infection, unspecified] Onset: 11-28-2024 10-03-2023 Episodic Unclassified (20 sources) SUMMARY Onset: 02-11-2010 Resolved: 02-21-2010 02-21-2010 Unclassified (1 source) History of repair of hip joint 03-27-2025 Viral infection (20 sources) Disease caused by 2019-nCoV; Translations: [COVID-19] Onset: 05-03-2007 Resolved: 12-19-2016 10-03-2023 Episodic Results Test Name Value Interpretation Reference Range Facility CNOVon 04-02-2025 CNOV Office Visit ([place]LU[facility] ) [place] ([id number]) 1945 M Date Time Provider Department 04/02/25 3:40 PM RAVIN HOUGH ORMARK ANTHONY During your visit today, we recorded the following information about you: Ravin Hough MD 04/02/2025 4:34 PM Signed [place] 3 months postop left total hip doing great. No complaints no pain. Ambulates without any support. X-rays excellent and I counseled him on his activities and we will see him back in December next year with an x-ray of his left hip. Assessment postop total hip doing well. Ravin Hough MD Allergies As of Date: 04/02/2025 Noted Allergy Reaction COCONUT 02/11/2010 11 - Vomiting Comments: Only allergic to shredded coconut, fine with oils. Date Reviewed: 04/02/2025 Reviewed by: Nawaf Ely Cast Tech - Fully Assessed Reason for Visit: Post Op [174] Primary Visit Diagnosis:Pain in left hip [M25.552] Prescriptions as of 04/02/2025 - metFORMIN ER (GLUCOPHAGE XR) 500 mg 24 hr tablet Take 2 tablets by mouth daily with breakfast. - pantoprazole DR (PROTONIX) 20 mg tablet Take 1 tablet by mouth once daily for 14 days. - docusate sodium (COLACE) 100 mg capsule Take 1 capsule by mouth two times a day. Take colace while taking narcotics to decrease your risk of constipation - aspirin, enteric coated (ECOTRIN LOW STRENGTH) 81 mg EC tablet Take 1 tablet by mouth two times a day for 28 days. - naloxone 4 mg/actuation nasal spray (NARCAN) Use 1 spray in one nostril as needed for overdose. May repeat every 2 to 3 min in alternating nostrils until medical assistance is available - levothyroxine (SYNTHROID) 112 mcg tablet Take 1 tablet by mouth once daily. - atorvastatin (LIPITOR) 20 mg tablet Take 1 tablet by mouth once daily. - lisinopril (ZESTRIL) 5 mg tablet Take 1 tablet by mouth once daily. - aspirin, enteric coated (ASPIRIN, ENTERIC COATED) 81 mg EC tablet Take 1 tablet by mouth once daily. - nitroglycerin sublingual (NITROQUICK) 0.4 mg SL tablet Dissolve 1 tablet under the tongue every 5 minutes as needed for chest pain, up to 3 doses. If no relief, call 911. 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 12/19/2016 Herpes zoster without mention of complication [*05/03/2007 12/19/2016 Routine general medical examination at [facility]*07/17/2007 06/14/2016 Nodular prostate without urinary obstruction [N*09/19/2007 Other seborrheic keratosis [L82.1] 12/08/2008 12/19/2016 Elevated blood pressure reading without diagnos*06/03/2009 11/19/2019 Chest Pain [R07.9] 07/13/2009 02/21/2010 Other hyperlipidemia [E78.49] 07/13/2009 SUMMARY [V999.95] 02/11/2010 02/21/2010 Hypothyroid [E03.9] 02/12/2010 02/21/2010 NSTEMI (non-ST elevated myocardial infarction) *02/12/2010 12/19/2016 Sinus Bradycardia [R00.1] 02/12/2010 02/21/2010 Flank pain [R10.9] 02/21/2010 12/19/2016 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 uribe*02/21/2010 03/13/2022 S/P angioplasty with stent 02/21/2010 12/19/2016 Dysmetabolic syndrome [E88.810] 07/29/2012 Thyroid nodule [E04.1] 08/05/2012 Presence of stent in LAD coronary artery [Z95.5]06/22/2016 S/P right coronary artery (RCA) stent placement*06/22/2016 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 uribe*06/22/2016 Sinus bradycardia [R00.1] 06/22/2017 Essential hypertension [I10] 11/19/2019 History of hypothyroidism [Z86.39] 09/14/2022 10/03/2023 Subarachnoid bleed (HCC) [I60.9] 11/18/2023 11/28/2024 Diagnosed: 11/26/2023 Controlled type 2 diabetes mellitus without com*05/29/2024 History of subarachnoid hemorrhage [Z86.79] 11/28/2024 S/P total left hip arthroplasty [Z96.642] 12/31/2024 Dysphagia [R13.10] 01/02/2025 Encounter Status:Closed by RAVIN HOUGH on 04/02/25 Normal [facility] XR HIP 3V PELV+ AP/LAT LTon 04-02-2025 XR HIP 3V PELV+ AP/LAT LT * * *Final Report* * * DATE OF EXAM: Apr 02 2025 3:26PM LUX 5351 - XR HIP 3V PELV+ AP/LAT LT / PROCEDURE REASON: Status post left hip replacement * * * * Physician Interpretation * * * * History: Status post left hip replacement FINDINGS: AP of the pelvis and AP and crosstable lateral views of the left hip are compared to prior study of 2025. Total left hip arthroplasty is in place, hardware intact and alignment satisfactory. No evidence of hardware loosening or acute bony process is seen. Degenerative changes of the right hip and included lower lumbar spine. Remaining visualized osseous structures and joint spaces stable. IMPRESSION: Left hip arthroplasty in place, without interval complication. Customer Service Correspondence Clerk: PSCB Transcribe Date/Time: Apr 06 2025 8:23A Dictated by : KOKI RICKETTS MD This examination was interpreted and the report reviewed and electronically signed by: KOKI RICKETTS MD on Apr 06 2025 8:24AM EST [id number] [facility] 2025 [facility] Office Visit (ORLUOP ) [place] ([id number]) 1945 M Date Time Provider Department 01/29/25 3:30 PM RAVIN HOUGH ORMARK ANTHONY During your visit today, we recorded the following information about you: Ravin Hough MD 2025 4:56 PM Signed [place] 1 month postop left total hip doing great. Wound is healed. No calf complaints. Ambulating without any support. X-rays excellent and I counseled him and his activities and we will see him back with an x-ray pelvis and left hip in 2 months. In addition the vocal cord issues that he had an immediately postop have completely resolved and he has no complaints referable to that. Assessment postop total hip doing well Ravin Hough MD Allergies As of Date: 2025 Noted Allergy Reaction COCONUT 02/11/2010 11 - Vomiting Comments: Only allergic to shredded coconut, fine with oils. Date Reviewed: 01/27/2025 Reviewed by: Karlie Campos PT - Fully Assessed Primary Visit Diagnosis:Pain in left hip [M25.552] Prescriptions as of 2025 - metFORMIN ER (GLUCOPHAGE XR) 500 mg 24 hr tablet Take 2 tablets by mouth daily with breakfast. - pantoprazole DR (PROTONIX) 20 mg tablet Take 1 tablet by mouth once daily for 14 days. - docusate sodium (COLACE) 100 mg capsule Take 1 capsule by mouth two times a day. Take colace while taking narcotics to decrease your risk of constipation - aspirin, enteric coated (ECOTRIN LOW STRENGTH) 81 mg EC tablet Take 1 tablet by mouth two times a day for 28 days. - naloxone 4 mg/actuation nasal spray (NARCAN) Use 1 spray in one nostril as needed for overdose. May repeat every 2 to 3 min in alternating nostrils until medical assistance is available - levothyroxine (SYNTHROID) 112 mcg tablet Take 1 tablet by mouth once daily. - atorvastatin (LIPITOR) 20 mg tablet Take 1 tablet by mouth once daily. - lisinopril (ZESTRIL) 5 mg tablet Take 1 tablet by mouth once daily. - aspirin, enteric coated (ASPIRIN, ENTERIC COATED) 81 mg EC tablet Take 1 tablet by mouth once daily. - nitroglycerin sublingual (NITROQUICK) 0.4 mg SL tablet Dissolve 1 tablet under the tongue every 5 minutes as needed for chest pain, up to 3 doses. If no relief, call 911. 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 12/19/2016 Herpes zoster without mention of complication [*05/03/2007 12/19/2016 [facility]ine [facility] medical [facility]*07/17/2007 06/14/2016 Nodular prostate without urinary obstruction [N*09/19/2007 Other seborrheic keratosis [L82.1] 12/08/2008 12/19/2016 Elevated blood pressure reading without diagnos*06/03/2009 11/19/2019 Chest Pain [R07.9] 07/13/2009 02/21/2010 Other hyperlipidemia [E78.49] 07/13/2009 SUMMARY [V999.95] 02/11/2010 02/21/2010 Hypothyroid [E03.9] 02/12/2010 02/21/2010 NSTEMI (non-ST elevated myocardial infarction) *02/12/2010 12/19/2016 Sinus Bradycardia [R00.1] 02/12/2010 02/21/2010 Flank pain [R10.9] 02/21/2010 12/19/2016 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 uribe*02/21/2010 03/13/2022 S/P angioplasty with stent 02/21/2010 12/19/2016 Dysmetabolic syndrome [E88.810] 07/29/2012 Thyroid nodule [E04.1] 08/05/2012 Presence of stent in LAD coronary artery [Z95.5]06/22/2016 S/P right coronary artery (RCA) stent placement*06/22/2016 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 uribe*06/22/2016 Sinus bradycardia [R00.1] 06/22/2017 Essential hypertension [I10] 11/19/2019 History of hypothyroidism [Z86.39] 09/14/2022 10/03/2023 Subarachnoid bleed (HCC) [I60.9] 11/18/2023 11/28/2024 Diagnosed: 11/26/2023 Controlled type 2 diabetes mellitus without com*05/29/2024 History of subarachnoid hemorrhage [Z86.79] 11/28/2024 S/P total left hip arthroplasty [Z96.642] 12/31/2024 Dysphagia [R13.10] 01/02/2025 Encounter Status:Closed by RAVIN HOUGH on 01/29/25 Normal [facility] XR HIP 3V PELV+ AP/LAT LTon 2025 XR HIP 3V PELV+ AP/LAT LT * * *Final Report* * * DATE OF EXAM: 2025 3:09PM LUX 5351 - XR HIP 3V PELV+ AP/LAT LT / PROCEDURE REASON: multiple diagnoses * * * * Physician Interpretation * * * * PROCEDURE: Pelvis and left hip INDICATION: Primary osteoarthritis of left hip Status post left hip replacement .Pt sts lt hip follow up post op x 1 month TECHNIQUE: XR HIP 3V PELV+ AP/LAT LT COMPARISON: 12/31/2024 FINDINGS: The left total hip arthroplasty remains in satisfactory position. No periprosthetic lucency, fracture or subsidence. Interval resolution of postoperative soft tissue emphysema. Degenerative change in the right hip and lower lumbar spine. IMPRESSION: Stable left TERI Customer Service Correspondence Clerk: MELISSA Transcribe Date/Time: Feb 01 2025 4:12P Dictated by : VIRAL JIN MD This examination was interpreted and the report reviewed and electronically signed by: VIRAL JIN MD on Feb 01 2025 4:13PM EST [id number] [facility] 12 Lead EKGon 01-23-2025 12 Lead EKG [facility] Cardiovascular Services [address] [place] [address] 12 Lead EKG 01/23/25 1653 MR#: [id number] Acct: [id number] Name: SANTA PEARL Rep #: [id number] : 1945 79 From: Jeannette Esparza MD Attending Dr: Status: DEP ER Ordering Dr: Bk Espinosa DO Date: 01/23/25 Location: ED Sex: M C Admitted: Test Reason : DIZZINESS Blood Pressure : */* mmHG Vent. Rate : 72 BPM Atrial Rate : 72 BPM P-R Int : 238 ms QRS Dur : 84 ms QT Int : 398 ms P-R-T Axes : 67 -1 53 degrees QTcB Int : 435 ms Sinus rhythm with 1st degree A-V block Otherwise normal ECG Confirmed by NICCI ANDREWS, NELSON ([id number]), mapping editor DAVIDA MCKENZIE ([id number]) on 01/26/2025 10:57:51 AM Referred By: Confirmed By: NELSON ESPARZA MD 01/26/25 105 Date Jeannette Esparza MD CC: Dr. Bk Espinosa DO; Dr. Josue Aguilera MD Signed Normal [facility] Absolute neutrophil countOrd ered By: Bk Espinosa on 01-23-2025 Neutrophils (Bld) [#/Vol] 8.9 10*3/uL High 2.0-7.7 [facility] Anion gap in Serum or Plasma Ordered By: Bk Espinosa on 01-23-2025 Anion gap [Moles/Vol] 16 mmol/L High 5-15 [facility] BUN/creatinine ratioOrdered By: Bk Espinosa on 01-23-2025 Urea nitrogen/Creatinine [Mass ratio] 18.8 mg/mg 10-20 [facility] Basic Metabolic Profile (BMP )on 01-23-2025 BUN/CRE 18.8 RATIO Normal 10-20 [facility] Comment on above: Performed By: #### L 300.3900, L501.4021, L500.2500, L100.0100, L300.4310 #### [facility] [address] [place], [address] Calcium [Mass/Vol] 9.7 mg/dL Normal 7.6-11.0 [facility] Comment on above: Performed By: #### L 300.3900, L501.4021, L500.2500, L100.0100, L300.4310 #### [facility] [address] [place], [address] Chloride [Moles/Vol] 98 mmol/L Normal 98-108 [facility] Comment on above: Performed By: #### L 300.3900, L501.4021, L500.2500, L100.0100, L300.4310 #### [facility] [address] [place], [address] CO2 [Moles/Vol] 24.0 mmol/L Normal 21.0-32.0 [facility] Comment on above: Performed By: #### L 300.3900, L501.4021, L500.2500, L100.0100, L300.4310 #### [facility] [address] [place], [address] Creatinine [Mass/Vol] 1.26 mg/dL High 0.70-1.20 [facility] Comment on above: Performed By: #### L 300.3900, L501.4021, L500.2500, L100.0100, L300.4310 #### [facility] [address] [place], [address] GAP 16 High 5-15 [facility] Comment on above: Performed By: #### L 300.3900, L501.4021, L500.2500, L100.0100, L300.4310 #### [facility] [address] [place], [address] GFR/1.73 sq M.predicted among non-blacks MDRD (S/P/Bld) [Vol rate/Area] 58 mL/min/{1.73_m2} Low >60 [facility] Comment on above: Result Comment: mL/m in/1.73m2 CKD-EPI Creatinine Equation (2020) Performed By: #### L 300.3900, L501.4021, L500.2500, L100.0100, L300.4310 #### [facility] [address] [place], [address] Glucose [Mass/Vol] 170 mg/dL High 70-99 [facility] Comment on above: Performed By: #### L 300.3900, L501.4021, L500.2500, L100.0100, L300.4310 #### [facility] [address] [place], [address] Potassium [Moles/Vol] 4.2 mmol/L Normal 3.3-5.1 [facility] Comment on above: Result Comment: Hemo lysis present, Results??could be affected. ?? Performed By: #### L 300.3900, L501.4021, L500.2500, L100.0100, L300.4310 #### [facility] [address] [place], [address] Sodium [Moles/Vol] 138 mmol/L Normal 133-145 [facility] Comment on above: Performed By: #### L 300.3900, L501.4021, L500.2500, L100.0100, L300.4310 #### [facility] [address] [place], [address] Urea nitrogen [Mass/Vol] 24 mg/dL High 4-19 [facility] Comment on above: Performed By: #### L 300.3900, L501.4021, L500.2500, L100.0100, L300.4310 #### [facility] [address] [place], [address] Basophil percentageOrdered B y: Bk Espinosa on 01-23-2025 Basophils/100 WBC (Bld) 0.5 % 0-1 [facility] CBC W/Diff, Automatedon 01-10 Absolute Lymph 0.89 X10 3/uL Normal 0.83-4.51 [facility] Comment on above: Performed By: #### L 300.3900, L501.4021, L500.2500, L100.0100, L300.4310 #### [facility] [address] [place], [address] Absolute Neut 8.9 X10 3/uL High 2.0-7.7 [facility] Comment on above: Performed By: #### L 300.3900, L501.4021, L500.2500, L100.0100, L300.4310 #### [facility] [address] [place], [address] Basophils/100 WBC (Bld) 0.5 % Normal 0-1 [facility] Comment on above: Performed By: #### L 300.3900, L501.4021, L500.2500, L100.0100, L300.4310 #### [facility] [address] [place], [address] Eosinophils/100 WBC (Bld) 1.0 % Normal 0-5 [facility] Comment on above: Performed By: #### L 300.3900, L501.4021, L500.2500, L100.0100, L300.4310 #### [facility] [address] [place], [address] Erythrocyte distribution width (RBC) [Ratio] 13.3 % Normal 11.6-14.6 [facility] Comment on above: Performed By: #### L 300.3900, L501.4021, L500.2500, L100.0100, L300.4310 #### [facility] [address] [place], [address] Hematocrit (Bld) [Volume fraction] 37.3 % Low 40-54 [facility] Comment on above: Performed By: #### L 300.3900, L501.4021, L500.2500, L100.0100, L300.4310 #### [facility] [address] [place], [address] Hemoglobin (Bld) [Mass/Vol] 11.9 g/dL Low 13.0-16.5 [facility] Comment on above: Performed By: #### L 300.3900, L501.4021, L500.2500, L100.0100, L300.4310 #### [facility] [address] [place], [address] IG% 0.700 Normal 0.0-0.9 [facility] Comment on above: Result Comment: IG% - Immature Granulocytes (promyelocytes, myelocytes and metamyelocytes) > 1% indicates that a LEFT SHIFT is Present. Performed By: #### L 300.3900, L501.4021, L500.2500, L100.0100, L300.4310 #### [facility] [address] [place], [address] Lymphocytes/100 WBC (Bld) 8.1 % Low 19-41 [facility] Comment on above: Performed By: #### L 300.3900, L501.4021, L500.2500, L100.0100, L300.4310 #### [facility] [address] [place], [address] MCH (RBC) [Entitic mass] 31.7 pg Normal 27.0-32.0 [facility] Comment on above: Performed By: #### L 300.3900, L501.4021, L500.2500, L100.0100, L300.4310 #### [facility] [address] [place], [address] MCHC (RBC) [Mass/Vol] 31.9 g/dL Low 32-36 [facility] Comment on above: Performed By: #### L 300.3900, L501.4021, L500.2500, L100.0100, L300.4310 #### [facility] [address] [place], [address] MCV (RBC) [Entitic vol] 99.5 fL High 80-94 [facility] Comment on above: Performed By: #### L 300.3900, L501.4021, L500.2500, L100.0100, L300.4310 #### [facility] [address] [place], [address] Monocytes/100 WBC (Bld) 8.5 % Normal 0-10 [facility] Comment on above: Performed By: #### L 300.3900, L501.4021, L500.2500, L100.0100, L300.4310 #### [facility] [address] [place], [address] Neutrophils/100 WBC (Bld) 81.2 % High 47-70 [facility] Comment on above: Performed By: #### L 300.3900, L501.4021, L500.2500, L100.0100, L300.4310 #### [facility] [address] [place], [address] Nucleated RBC (Bld) [#/Vol] 0 10*3/uL Normal 0-5 [facility] Comment on above: Performed By: #### L 300.3900, L501.4021, L500.2500, L100.0100, L300.4310 #### [facility] [address] [place], [address] Platelet mean volume (Bld) [Entitic vol] 10.5 fL Normal 6.2-12.0 [facility] Comment on above: Performed By: #### L 300.3900, L501.4021, L500.2500, L100.0100, L300.4310 #### [facility] [address] [place], [address] Platelets (Bld) [#/Vol] 302 10*3/uL Normal 150-450 [facility] Comment on above: Performed By: #### L 300.3900, L501.4021, L500.2500, L100.0100, L300.4310 #### [facility] [address] [place], [address] RBC (Bld) [#/Vol] 3.75 10*6/uL Low 4.6-6.2 [facility] Comment on above: Performed By: #### L 300.3900, L501.4021, L500.2500, L100.0100, L300.4310 #### [facility] [address] [place], [address] RDW SD 48.3 fl High 35.1-43.9 [facility] Comment on above: Performed By: #### L 300.3900, L501.4021, L500.2500, L100.0100, L300.4310 #### [facility] [address] [place], [address] WBC (Bld) [#/Vol] 10.9 10*3/uL Normal 4.4-11.0 [facility] Comment on above: Performed By: #### L 300.3900, L501.4021, L500.2500, L100.0100, L300.4310 #### [facility] [address] [place], [address] Carbon dioxide, total [Moles /volume] in Central venous bloodOrdered By: Bk Espinosa on 01-23-2025 CO2 [Moles/Vol] 24.0 mmol/L 21.0-32.0 [facility] Chest 1 View (Portable)on Chest 1 View (Portable) [facility] Imaging Services [address] [place] [address] Chest 1 View (Portable) MR#: [id number] Acct: [id number] Name: SANTA PEARL Rep #: [id number] : 1945 M 79 From: José Miguel poole MD PCP: Dr. Josue gAuilera MD Status: REG ER Study: Chest 1 View (Portable) Date of Exam: 01/23/25 Exam# [id number] Ordering Dr: Bk Espinosa DO PROCEDURE: CHEST 1 VIEW (PORTABLE) 01/23/2025 REASON FOR EXAM: STROKE TECHNIQUE: Frontal view of the chest. COMPARISON: 06/20/2022 FINDINGS: Mild cardiomegaly. Mild atherosclerotic calcification of the thoracic aorta No focal consolidation. No pneumothorax. No pleural effusion. Degenerative changes are identified within the thoracic spine. Mild degenerative changes of the right glenohumeral joint. RAD/Chest 1 View (Portable) IMPRESSION: No Acute Findings. Reading Location: [facility] CC: Dr. Bk Espinosa DO; Dr. Josue Aguilera MD Customer Service Correspondence Clerk: Signed Normal [facility] Chloride assayOrdered By: Donavan Espinosa on 01-23-2025 Chloride [Moles/Vol] 98 mmol/L 98-108 [facility] Emergency Department Summary on 01-23-2025 Emergency Department Summary [facility] Medical Records Department [address] [place] [address] Emergency Department Summary 01/23/25 MR#: [id number] Acct: [id number] Name: SANTA PEARL Rep #: [id number] : 1945 79 From: Bk Espinosa DO PCP: Dr. 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 Chief complaint was dizziness and in triage note was noted as well, however the patient was not dizzy he states that he was very lightheaded he was not spinning objects were not spinning.. According to the patient he was working in his shop earlier today he states that he was feeling very hot and not well he went up took a break ate late breakfast and eventually went back down to the shop. Today around 2:30 PM he noted that he was in his shop became very hot lightheaded with sweating and he states that he developed tunnel vision. He states that he had to sit down he states that he has not been lightheaded like this in a very long time he states that this has happened 1 other time. 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 Family bedside noted that she had to sit him down and prevent him from falling/passing out. Patient states that he not drink much water today. At the time of my exam today here in the emergency department he states that he is back to his baseline [facility] Medical History Dizziness Home Medications ???Medication ???Instructions ???Recorded ???Last Taken ???Type aspirin 81 mg chewable tablet 81 mg PO DAILY@0800 08/18/1408/17 08:30 History atorvastatin 20 mg tablet 20 mg PO QHS 08/18/14 08/18/14 00: 30 History clopidogrel 75 mg tablet 75 mg PO DAILY 08/18/14 08/17/14 0 8:30 History levothyroxine 112 mcg tablet 112 mcg PO DAILY 08/18/14 08/17/14 08:30 History (Synthroid) lisinopril 5 mg tablet 5 mg PO QHS 08/18/14 08/18/14 00:3 0 History Allergy/AdvReac Type Severity Reaction Status Date / Time coconut AdvReac Vomiting Verified 01/23/25 15:28 Social History household members: spouse Smoking Status: Former smoker substance use type: does not use ROS ROS ED ROS Narrative Constitutional: Complains of lightheadedness as noted above denies fevers chills, dizziness, headaches Eyes: Denies change in vision double vision blurry vision Cardiovascular: Denies chest pain or palpitations Respiratory: Denies coughing wheezing shortness of breath Abdomen: Denies abdominal pain nausea vomit diarrhea : Denies urinary symptoms Neurological: States that he has had 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 past causing unequal smile on the left this is not new denies any other numbness or tingling Musculoskeletal: Denies back pain Skin: Denies rashes or lesions EXAM Physical Exam Narrative Exam Narrative: General: Patient was lying in bed rest comfortably did not appear to be in acute distress Head: Atraumatic, normocephalic Eyes: PERRL bilaterally, EOMI bilaterally, no conjunctival injection noted Neck: Soft, supple, trachea midline Cardiovascular: Regular rate and rhythm no murmurs gallops rubs noted Respiratory: Clear to auscultation bilaterally Abdomen: Soft, nondistended, nontender to palpation Extremities: +5/5 strength noted in the bilateral upper and lower extremities, radial pulse +2/4 in the bilateral extremities, no pedal edema on exam Neurological: Patient following commands knew that he was at [facility] year is 2024. NIH is 0 GCS 15. Patient completed finger-nose test bilaterally, difficulty Skin: Warm, dry, intact no rashes or lesions noted Const Vital Signs: 01/23/25 15:25 01/23/25 18:00 01/23/25 18:13 Temperature 95.5 F L 98.3 F Temperature Source Oral Oral Pulse Rate 72 81 Respiratory Rate 18 18 Blood Pressure 94/62 140/71 H 140/71 H Blood Pressure Mean 72 94 94 Pulse Ox 99 97 98 Oxygen Delivery Method Room Air Room Air Room Air MDM MDM MDM Narrative Medical decision making narrative: Patient is a 79-year-old male who presented to the emergency department chief complaint of lightheadedness and almost passing out. On the differential diagnose includes but not limited to vasovagal syncope, dehydration, ACS. Once workup is obtained reviewed he will be reevaluated. Patient began IV fluids for hydration. With static vital signs will be obtained. Patient CBC reviewed and showed no evidence leukocytosis white blood count of 10.9, hemoglobin 1.9, plate count of 302. Patient's INR normal at 1, PT (more content not included)... Normal [facility] Eosinophil percentageOrdered By: Bk Espinosa on 01-23-2025 Eosinophils/100 WBC (Bld) 1.0 % 0-5 [facility] Erythrocyte distribution wid th ratioOrdered By: Bk Espinosa on 01-23-2025 Erythrocyte distribution width (RBC) [Ratio] 13.3 % 11.6-14.6 [facility] Erythrocyte distribution wid th standard deviationOrdered By: Bk Espinosa on 01-23-2025 Erythrocyte distribution width (RBC) [Entitic vol] 48.3 fL High 35.1-43.9 [facility] GFR/1.73 sq M.predicted jeanette g non-blacks MDRD (S/P/Bld) [Vol rate/Area]Ordered By: Bk Espinosa on 01-23-2025 Estimated GFR (MDRD) Non-Af Amer 58 Low >60 [facility] Comment on above: mL/min/1.73m2 CKD-EP I Creatinine Equation (2020) Hematocrit Auto (Bld) [Volum e fraction]Ordered By: Bk Espinosa on 01-23-2025 Hematocrit (Bld) [Volume fraction] 37.3 % Low 40-54 [facility] Hemoglobin measurementOrdere d By: Bk Espinosa on 01-23-2025 Hemoglobin (Bld) [Mass/Vol] 11.9 g/dL Low 13.0-16.5 [facility] Immature granulocytes/100 WB C Auto (Bld)Ordered By: Bk Espinosa on 01-23-2025 Immature granulocytes/100 WBC (Bld) 0.700 % 0.0-0.9 [facility] Comment on above: IG% - Immature Granu locytes (promyelocytes, myelocytes and metamyelocytes) > 1% indicates that a LEFT SHIFT is Present. International normalized rat io (INR) calculationOrdered By: Bk Espinosa on 01-23-2025 INR Coag (Bld) [Relative time] 1.0 {INR} [facility] L499.0042on 01-23-2025 Trop T High Sen 14 ng/L Normal <=22 [facility] Comment on above: Performed By: #### L 499.0042 #### [facility] [address] [place], [address] L501.4021on 01-23-2025 Trop T High Sen 15 ng/L Normal <=22 [facility] Comment on above: Performed By: #### L 300.3900, L501.4021, L500.2500, L100.0100, L300.4310 #### [facility] [address] [place], [address] Trop T High Sen 14 ng/L Normal <=22 [facility] Comment on above: Order Comment: REORD ERING DUE TO ER LABELLING ERROR Result Comment: REOR DERING DUE TO ER LABELLING ERROR Performed By: #### L 501.4021 #### [facility] [address] [place], [address] Lymphocytes Auto (Unsp spec) [#/Vol]Ordered By: Bk Espinosa on 01-23-2025 Lymphocytes (Bld) [#/Vol] 0.89 10*3/uL 0.83-4.51 [facility] Lymphocytes/100 WBC Auto (Un sp spec)Ordered By: Bk Espinosa on 01-23-2025 Lymphocytes/100 WBC (Bld) 8.1 % Low 19-41 [facility] MCV (mean corpuscular volume ) determinationOrdered By: Bk Espinosa on 01-23-2025 MCV (RBC) [Entitic vol] 99.5 fL High 80-94 [facility] Mean corpuscular hemoglobin (MCH) determinationOrdered By: Bk Espinosa on 01-23-2025 MCH (RBC) [Entitic mass] 31.7 pg 27.0-32.0 [facility] Mean corpuscular hemoglobin concentration (MCHC) determinationOrdered By: Bk Espinosa on 01-23-2025 MCHC (RBC) [Mass/Vol] 31.9 g/dL Low 32-36 [facility] Mean platelet volume determi nationOrdered By: Bk Espinosa on 01-23-2025 Platelet mean volume (Bld) [Entitic vol] 10.5 fL 6.2-12.0 [facility] Monocyte percentageOrdered B y: Bk Espinosa on 01-23-2025 Monocytes/100 WBC (Bld) 8.5 % 0-10 [facility] Neutrophil percentageOrdered By: Bk Espinosa on 01-23-2025 Neutrophils/100 WBC (Bld) 81.2 % High 47-70 [facility] No Panel InformationOrdered By: ED PROVIDER on 01-23-2025 Troponin T High Sensitivity 15 ng/L <22 [facility] Nucleated red blood cell per centageOrdered By: Bk Espinosa on 01-23-2025 Nucleated RBC/100 WBC (Bld) [Ratio] 0 % 0-5 [facility] Partial Thromboplast Timeon 01-23-2025 aPTT Coag (Bld) [Time] 27.2 s Normal 24.1-36.2 [facility] Comment on above: Performed By: #### L 300.3900, L501.4021, L500.2500, L100.0100, L300.4310 #### [facility] [address] [place], [place], [id number] Platelet countOrdered By: Donavan Espinosa on 01-23-2025 Platelets (Bld) [#/Vol] 302 10*3/uL 150-450 [facility] Potassium (Unsp spec) [Mass/ Vol]Ordered By: Bk Espinosa on 01-23-2025 Potassium [Moles/Vol] 4.2 mmol/L 3.3-5.1 [facility] Comment on above: Hemolysis present, R esults could be affected. Prothrombin Time w/INRon INR Coag (PPP) [Relative time] 1.0 {INR} Normal [facility] Comment on above: Performed By: #### L 300.3900, L501.4021, L500.2500, L100.0100, L300.4310 #### [facility] [address] [place], [address] PT Coag (PPP) [Time] 13.7 s Normal 11.7-14.9 [facility] Comment on above: Performed By: #### L 300.3900, L501.4021, L500.2500, L100.0100, L300.4310 #### [facility] [address] [place], [place], [id number] Prothrombin timeOrdered By: Bk Espinosa on 01-23-2025 PT Coag (PPP) [Time] 13.7 s 11.7-14.9 [facility] RBC Auto (Bld) [#/Vol]Ordere d By: Bk Espinosa on 01-23-2025 RBC (Bld) [#/Vol] 3.75 10*6/uL Low 4.6-6.2 [facility] Serum creatinine measurement (mass/volume)Ordered By: Bk Espinosa on 01-23-2025 Creatinine [Mass/Vol] 1.26 mg/dL High 0.70-1.20 [facility] Serum glucose measurement (m ass/volume)Ordered By: Bk Espinosa on 01-23-2025 Glucose [Mass/Vol] 170 mg/dL High 70-99 [facility] Serum or plasma calcium judi urement (mass/volume)Ordered By: Bk Espinosa on 01-23-2025 Calcium [Mass/Vol] 9.7 mg/dL 7.6-11.0 [facility] Serum or plasma urea nitroge n measurement (mass/volume)Ordered By: Bk Espinosa on 01-23-2025 Urea nitrogen [Mass/Vol] 24 mg/dL High 4-19 [facility] Sodium levelOrdered By: Yahaira Espinosa on 01-23-2025 Sodium [Moles/Vol] 138 mmol/L 133-145 [facility] Troponin T.cardiac High sens itivity method [Mass/Vol]Ordered By: Bk Espinosa on 01-23-2025 Troponin T High Sensitivity 2 Hour 14 ng/L <22 [facility] White blood cell (WBC) count Ordered By: Bk Espinosa on 01-23-2025 WBC (Bld) [#/Vol] 10.9 10*3/uL 4.4-11.0 [facility] aPTT Coag (PPP) [Time]Ordere d By: Bk Espinosa on 01-23-2025 aPTT Coag (Bld) [Time] 27.2 s 24.1-36.2 [facility] 102on 01-19-2025 102 HNO ID: [id number] Author: LARS HUTCHINSON HDA Service: ? Author Type: ? Type: 102 Filed: 01/19/2025 11:10 Note Text: Code Status: Full Code Normal [facility] CNOVon 01-15-2025 CNOV Office Visit (FAMPWS ) SANTA PEARL ([id number]) 1945 M Date Time Provider Department 01/15/25 9:00 AM [facility] During your visit today, we recorded the following information about you: Temperature Pulse Blood pressure Weight 97.9 degrees 64/minute 116/68 85.3 kg [facility] APRN.OB/GYN DOCTOR 01/15/2025 9:49 AM Signed This is a 79 year old male who presents today with: Patient presents with: Follow Up: Hip Replacement follow up HISTORY OF PRESENT ILLNESS: Santa Pearl is a 79 year old male. Patient presents with: Follow Up: Hip Replacement follow up Recovering from L TERI. Feeling good. Saw ENT, said throat injured but will heel. 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 HYPERLIPIDEMIA NEC/NOS Hyperplasia of prostate Personal history of colonic polyps S/P angioplasty with stent 02/21/2010 x2 Thyroid nodule 08/05/2012 Unspecified hemorrhoids without mention of complication Unspecified hypothyroidism PAST SURGICAL HISTORY Procedure Laterality Date ARTHRP KNE CONDYLEANDPLATU MEDIALANDLAT COMPARTMENTS 11/12/1990 Knee replacement, total LEFT ARTHRP KNE CONDYLEANDPLATU MEDIALANDLAT COMPARTMENTS 11/12/2006 PARTIAL KNEE REPLACEMENT RIGHT CC CORONARY STENT 02/10/2010 x2 COLONOSCOPY AND POLYPECTOMY 01/14/2002 repeat 2012 FNA WITH IMAGING 08/21/2012 U/S FNA right thyroid lesion TOTAL HIP REPLACEMENT Left 12/31/2024 Left TERI ALLERGIES [place] MEDICATIONS Current Outpatient Medications Medication Sig pantoprazole DR (PROTONIX) 20 mg tablet Take 1 tablet by mouth once daily for 14 days. meloxicam (MOBIC) 15 mg tablet Take 1 tablet by mouth once daily for 14 days. docusate sodium (COLACE) 100 mg capsule Take 1 capsule by mouth two times a day. Take colace while taking narcotics to decrease your risk of constipation aspirin, enteric coated (ECOTRIN LOW STRENGTH) 81 mg EC tablet Take 1 tablet by mouth two times a day for 28 days. levothyroxine (SYNTHROID) 112 mcg tablet Take 1 tablet by mouth once daily. atorvastatin (LIPITOR) 20 mg tablet Take 1 tablet by mouth once daily. lisinopril (ZESTRIL) 5 mg tablet Take 1 tablet by mouth once daily. aspirin, enteric coated (ASPIRIN, ENTERIC COATED) 81 mg EC tablet Take 1 tablet by mouth once daily. (Patient taking differently: Take 81 mg by mouth two times a day.) metFORMIN ER (GLUCOPHAGE XR) 500 mg 24 hr tablet Take 1 tablet by mouth daily with breakfast. naloxone 4 mg/actuation nasal spray (NARCAN) Use 1 spray in one nostril as needed for overdose. May repeat every 2 to 3 min in alternating nostrils until medical assistance is available benzonatate (TESSALON PERLE) 100 mg capsule Take 1 capsule by mouth three times a day as needed. (Patient taking differently: Take 1 capsule by mouth three times a day as needed for cough.) nitroglycerin sublingual (NITROQUICK) 0.4 mg SL tablet Dissolve 1 tablet under the tongue every 5 minutes as needed for chest pain, up to 3 doses. If no relief, call 911. No current facility-administered medications for this visit. FAMILY HISTORY Problem Relation Age of Onset Cancer Mother LYMPHATIC Heart Father IA Emphysema Father smoker/welder shielded metal arc Cancer Maternal Grandmother Social History Tobacco Use Smoking status: Former Current packs/day: 0.00 Average packs/day: 1 pack/day for 25.0 years (25.0 ttl pk-yrs) Types: Cigarettes Start date: 11/24/1964 Quit date: 11/24/1989 Years since quittin.1 Smokeless tobacco: Never Vaping Use Vaping status: Never Used Substance Use Topics Alcohol use: Yes Alcohol/week: 1.0 standard drink of alcohol Types: 1 Cans of Beer (12oz) per week Comment: occasional Drug use: No No weight loss or gain Eating good. Drinking fine. No trouble swallowing. In therapy Sleeping fine- 7 hours. Bowels and bladder fine Some swelling when up moving around- gone in morning Incision healing well No SOB, cough or wheeze No chest pain, palpitations, orthopnea EXAM: BP 116/68 Pulse 64 Temp 36.6 ?C (97.9 ?F) (Right Tympanic) Wt 85.3 kg (188 lb) SpO2 97% BMI 26.98 kg/m? PHYSICAL EXAM: Physical Exam Vitals reviewed. Constitutional: Appearance: Normal appearance. HENT: Head: Normocephalic. Cardiovascular: Rate and Rhythm: Normal rate and regular rhythm. Pulses: Normal pulses. Heart sounds: Murmur heard. Comments: Soft LAI @ sternal border, diminished at apex Pulmonary: Effort: Pulmonary effort is normal. Breath sounds: Normal breath sounds. Abdominal: General: Bowel sounds are normal. Palpations: Abdomen is soft. Tenderness: There is no abdominal tenderness. There is no g (more content not included)... Normal [facility] ALLIED HEALTHon 01-05-2025 ALLIED HEALTH HNO ID: [id number] Author: YELENA CLAYTON RT(R) Service: ? Author Type: Technologist Type: Allied Health Filed: 01/05/2025 08:21 Note Text: Radiology Service Progress Note PATIENT NAME: Santa Pearl DATE OF SERVICE: January 05, 2025 TIME: 8:21 AM PATIENT IDENTITY VERIFICATION COMPLETED USING TWO (2) IDENTIFIERS: Name and Date of confirmed by patient verbally and Name and Date of confirmed by identification band. FALL SCREENING: Has the patient had 2 falls in the last year or 1 fall with injury or currently using an Ambulatory Assistive Device (Walker, Cane, Wheelchair, Crutches, etc.)? Inpatient: Screened on floor PATIENT GENDER DATA: Assigned male at PATIENT RELEVANT IMPLANT DATA REVIEWED: Not Applicable PATIENT PRESENTS WITH AN IMPLANTABLE OR ATTACHED UNIFORM CAP OPERATOR: No RADIOLOGY DEPARTMENT: General X-ray: Exam(s) Completed: GI/ Procedure(s): Modified barium swallow with barium contrast PERIPHERAL IV DATA: Not applicable SIGNED BY: RT Vamsi(R) January 05, 2025 8:21 AM Normal [facility] Basic metabolic 2000 panelon 01-05-2025 Anion gap [Moles/Vol] 10 mmol/L Normal 8-15 [facility] Comment on above: Order Comment: Speci men Type: BLOOD SPECIMENOrdering Facility: [facility] Address: [address] [place] [address] Performed By: #### 2 4321-2 ####[facility] LABORATORYCLIA [id number] [place] [address] [place] Calcium [Mass/Vol] 8.2 mg/dL Low 8.5-10.2 [facility] Comment on above: Order Comment: Speci men Type: BLOOD SPECIMENOrdering Facility: [facility] Address: [address] [place] [address] Performed By: #### 2 4321-2 ####[facility] LABORATORYCLIA [id number] [place] [address] [place] Chloride [Moles/Vol] 106 mmol/L Normal 98-107 [facility] Comment on above: Order Comment: Speci men Type: BLOOD SPECIMENOrdering Facility: [facility] Address: [facility] [place] [address] Performed By: #### 2 4321-2 ####[facility] LABORATORYCLIA [id number] [place] [id number] [place] CO2 [Moles/Vol] 26 mmol/L Normal 22-30 [facility] Comment on above: Order Comment: Speci men Type: BLOOD SPECIMENOrdering Facility: [facility] Address: [address] [place] [address] Performed By: #### 2 4321-2 ####[facility] LABORATORYCLIA [id number] [place] [address] [place] Creatinine [Mass/Vol] 0.59 mg/dL Low 0.73-1.22 [facility] Comment on above: Order Comment: Rose Mary naylor Type: BLOOD SPECIMENOrdering Facility: [facility] Address: [address] [place] [address] Performed By: #### 2 4321-2 ####[facility] LABORATORYCLIA [id number] [place] [address] [facility] Creatinine and Glomerular filtration rate.predicted panel (S/P/Bld) 99 mL/min/1.73m??? Normal >=60 [facility] Comment on above: Order Comment: Rose Mary naylor Type: BLOOD SPECIMENOrdering Facility: [facility] Address: [address] [place] [address] Result Comment: Coco mated Glomerular Filtration Rate (eGFR) is calculated using the 2020 CKD-EPI creatinine equation. This equation utilizes serum creatinine, sex, and age as parameters. The creatinine assay has traceable calibration to isotope dilution-mass spectrometry. Refer to KDIGO guidelines for clinical interpretation. In patients with unstable renal function, e.g. those with acute kidney injury, the eGFR may not accurately reflect actual GFR. Performed By: #### 2 4321-2 ####[facility] LABORATORYCLIA [id number] [place] [address] [place] Glucose [Mass/Vol] 208 mg/dL High 74-99 [facility] Comment on above: Order Comment: Rose Mary naylor Type: BLOOD SPECIMENOrdering Facility: [facility] Address: [address] [place] [address] Result Comment: The [place] Diabetes Association (ADA) provides guidance for cutoff values for fasting glucose and random glucose. The ADA defines fasting as no caloric intake for at least 8 hours. Fasting plasma glucose results between 100 to 125 mg/dL indicate increased risk for diabetes (prediabetes). Fasting plasma glucose results greater than or equal to 126 mg/dL meet the criteria for diagnosis of diabetes. In the absence of unequivocal hyperglycemia, results should be confirmed by repeat testing. In a patient with classic symptoms of hyperglycemia or hyperglycemic crisis, random plasma glucose results greater than or equal to 200 mg/dL meet the criteria for diagnosis of diabetes. Reference: Standards of Medical Care in Diabetes 2016, [place] [employer] Association. Diabetes Care. 2016.39(Suppl 1). Performed By: #### 2 4321-2 ####[facility] LABORATORYCLIA [id number] [address] [place], [place] [address] [place] Potassium [Moles/Vol] 4.2 mmol/L Normal 3.7-5.1 [facility] Comment on above: Order Comment: Speci men Type: BLOOD SPECIMENOrdering Facility: [facility] Address: [address] [place] [address] Performed By: #### 2 4321-2 ####[facility] LABORATORYCLIA [id number] [place] [address] [facility] Sodium [Moles/Vol] 142 mmol/L Normal 136-144 [facility] Comment on above: Order Comment: Speci men Type: BLOOD SPECIMENOrdering Facility: [facility] Address: [address] [place] [address] Performed By: #### 2 4321-2 ####[facility] LABORATORYCLIA [id number] [address] [place], [place] [address] [place] Urea nitrogen [Mass/Vol] 39 mg/dL High 08-05 [facility] Comment on above: Order Comment: Speci men Type: BLOOD SPECIMENOrdering Facility: [facility] Address: [address] [place] [address] Performed By: #### 2 4321-2 ####[facility]ORATORYCLIA [id number] [place] [address] [place] CBC panel Auto (Bld)on 01-05 Erythrocyte distribution width (RBC) [Ratio] 13.0 % Normal 11.5-15.0 [facility] Comment on above: Order Comment: Speci men Type: BLOOD SPECIMENOrdering Facility: [facility] Address: [address] [place] [address] Performed By: #### 5 8410-2 ####[facility] LABORATORYCLIA [id number] [address] [place] [address] [place] Hematocrit (Bld) [Volume fraction] 27.7 % Low 39.0-51.0 [facility] Comment on above: Order Comment: Speci men Type: BLOOD SPECIMENOrdering Facility: [facility] Address: [address] [place] [address] Performed By: #### 5 8410-2 ####[facility] LABORATORYCLIA [id number] [place] [address] [place] Hemoglobin (Bld) [Mass/Vol] 9.0 g/dL Low 13.0-17.0 [facility] Comment on above: Order Comment: Speci men Type: BLOOD SPECIMENOrdering Facility: [facility] Address: [address] [place] [address] Performed By: #### 5 8410-2 ####[facility] LABORATORYCLIA [id number] [place] [address] [place] MCH (RBC) [Entitic mass] 31.9 pg Normal 26.0-34.0 [facility] Comment on above: Order Comment: Speci men Type: BLOOD SPECIMENOrdering Facility: [facility] Address: [address] [place] [address] Performed By: #### 5 8410-2 ####[facility]ORATORYCLIA [id number] [address] [place] MCHC (RBC) [Mass/Vol] 32.5 g/dL Normal 30.5-36.0 [facility] Comment on above: Order Comment: Speci men Type: BLOOD SPECIMENOrdering Facility: [facility] Address: [address] [place] [address] Performed By: #### 5 8410-2 ####[facility]ORATORYCLIA [id number] [address] [place] MCV (RBC) [Entitic vol] 98.2 fL Normal 80.0-100.0 [facility] Comment on above: Order Comment: Speci men Type: BLOOD SPECIMENOrdering Facility: [facility] Address: [address] [place] [address] Performed By: #### 5 8410-2 ####[facility] LABORATORYCLIA [id number] [address] [place], [place] [address] [place] Nucleated RBC (Bld) [#/Vol] 10*3/uL Normal <0.01 [facility] Comment on above: Order Comment: Speci men Type: BLOOD SPECIMENOrdering Facility: [facility] Address: [address] [place] [address] Performed By: #### 5 8410-2 ####[facility]ORATORYCLIA [id number] [place] [address] [place] Platelet mean volume (Bld) [Entitic vol] 10.6 fL Normal 9.0-12.7 [facility] Comment on above: Order Comment: Speci men Type: BLOOD SPECIMENOrdering Facility: [facility] Address: [address] [place] [address] Performed By: #### 5 8410-2 ####[facility]ORATORYCLIA [id number] [place] [address] [place] Platelets (Bld) [#/Vol] 274 10*3/uL Normal 150-400 [facility] Comment on above: Order Comment: Speci men Type: BLOOD SPECIMENOrdering Facility: [facility] Address: [address] [place] [address] Performed By: #### 5 8410-2 ####[facility]ORATORYCLIA [id number] [place] [address] [place] RBC (Bld) [#/Vol] 2.82 10*6/uL Low 4.20-6.00 [facility] Comment on above: Order Comment: Speci men Type: BLOOD SPECIMENOrdering Facility: [facility] Address: [address] [place] [address] Performed By: #### 5 8410-2 ####[facility]ATORYCLIA [id number] [place] [address] [place] WBC (Bld) [#/Vol] 9.53 10*3/uL Normal 3.70-11.00 [facility] Comment on above: Order Comment: Speci men Type: BLOOD SPECIMENOrdering Facility: [facility] Address: [place] [address] Performed By: #### 5 8410-2 ####[facility] LABORATORYCLIA [id number] [place] [address] [place] THERAPY NTon 01-05-2025 THERAPY NT HNO ID: [id number] Author: ABBY DELUNA CCC-CLIENT BUSINESS MANAGER Service: Speech/Swallow Author Type: Speech Language Pathologist Type: Therapy (PT/OT/Speech/Resp) Filed: 01/05/2025 09:04 Note Text: Speech Therapy MBSS Evaluation SERVICE DATE: 01/05/2025 SERVICE TIME: 802 to 830 ROOM: [place] [address] IMPRESSION Patient presents with mild pharyngeal dysphagia related to potential irritation/trauma from emergent suctioning during surgery. This is significantly improved from his Modified Barium Swallow Study (MBSS) completed 01/01/25, which revealed severe pharyngeal dysphagia. Patient appears safe to resume his baseline oral diet at this time. Evidence of: Pharyngeal dysphagia An elevated risk for aspiration: No Swallow Efficiency: Preserved Speech Rehab Potential: Good RECOMMENDATIONS Diet Recommendations Regular Consistency, Thin Liquids IDDSI Level 0, Medications whole in puree (pudding/applesauce) Swallow Strategy Recommendations Sit upright 90 degrees for all PO, Small Bite/Sip, Rigid Oral Hygiene Nursing Recommendations Confirm Dentures appropriately placed for all PO, Routine Rigid Oral Hygiene Recommended Consults ENT (as outpatient) Response to Therapy Interventions: Good participation in activities Rehabilitation Precautions: Aspiration Precautions, Dysphagia DISCHARGE RECOMMENDATIONS Recommended Discharge Disposition: Outpatient Speech Therapy (after ENT appointment) CURRENT HOSPITAL COURSE 12/31 Patient underwent left hip surgery. He had emesis during surgery that required emergent suctioning. CXR negative. 01/01 MBSS completed with aspiration of all liquids. 01/02 Started on puree diet. Reason for Speech Therapy Consult: Recommended by CLIENT BUSINESS MANAGER. Relevant Past Medical History: CAD, Ramirez's palsy, SAH, HTN HOME ENVIRONMENT / PRIOR FUNCTIONAL LEVEL Patient Lives With: Spouse Prior Swallowing Function/Diet Textures: Regular Consistency, Thin Liquids IDDSI Level 0 SUBJECTIVE Patient was pleasant and eager to complete the assessment. Patient reported improvements in his voice, but it is still not at baseline. Patient reported he consumed the puree food over the weekend but he decided he would not consume water, as it was making him cough. THERAPY DIAGNOSIS Dysphagia, pharyngeal phase TREATMENT INTERVENTIONS Modified Barium Swallow Study (79570), Dysphagia Therapy (88294) Skilled Treatment Time (minutes): 28 TRAINING AND EDUCATION PROVIDED IN Dysphagia Management, Results and Recommendations of Session, Modified Barium Swallow Results, Swallowing Strategies THERAPEUTIC SKILLS USED Education on role of discipline / importance of activity, Family / caregiver counseling / training, Verbal cuing, Instruction in self-monitoring / self-assessment, Analyze current use of strategies taught, Visual cuing OBJECTIVE Current Status Oral Hygiene: Clear, moist oral cavity Dentition: Dentures-Lower Partial, Dentures-Upper Partial Current Feeding Method: Oral Current Diet Textures: Pureed IDDSI Level 4 Current Level Of Communication: Verbal Current Management Of Secretions: Able to self-manage Oral Motor Exam: Within Functional Limits Except Palatal Elevation: (Erythema noted on right tonsil on 01/01 evaluation.) SPEECH/VOICE/LANGUAGE Vocal Quality: Breathy SWALLOW ASSESSMENT Position Of Patient During Assessment: Upright In Chair Feeding Method: Patient Self-Fed [place] [facility] [place] Instrumental Swallow Assessment Type: Modified Barium Swallow Study Modified Barium Swallow Views: Lateral position, Anterior-posterior position Barium Consistencies Provided: Thin Liquids IDDSI Level 0, Mildly Thick Liquids IDDSI Level 2 ([place] Thick), Moderately Thick Liquids IDDSI Level 3 (Honey Thick), Pureed Solids IDDSI Level 4, Solid, 13mm Barium Tablet Oral Phase: As Follows Lip Closure: Interlabial escape/no progression to anterior lip Tongue Control During Bolus Hold: Cohesive bolus between tongue to palatal seal Bolus Preparation/Masticatio n: Timely and efficient mastication skills Bolus Transport/Lingual Motion: Slowed Tongue Motion for A-P movement of the bolus Oral Residue: Residue collection on oral structure Initiation Of Pharyngeal Swallow: Bolus head at posterior laryngeal surface of epiglottis Pharyngeal Phase: As Follows Soft Palate Elevation: No bolus between soft palate/pharyngeal wall Laryngeal Elevation: Partial superior movement of thyroid cartilage and/or partial approximation of arytenoids to epiglottic petiole (single event with thin liquids + tablet) Anterior Hyoid Excursion: Complete anterior movement Epiglottic Movement: Complete inversion Laryngeal Vestibular Closure/Height of the Swallow: Incomplete - narrow column of air/contrast in laryngeal vestibule (single event with thin liquids + tablet) Pharyngeal Stripping Wave: Complete Pharyngeal Contraction (A/P View Only): Complete (bolus flows righ (more content not included)... Normal [facility] XR MOD BARIUM SWALLOW W JHOAN Perkins 01-05-2025 XR MOD BARIUM SWALLOW W SPEECH * * *Final Report* * * DATE OF EXAM: Jan 05 2025 9:00AM LUX 5377 - XR MOD BARIUM SWALLOW W SPEECH / PROCEDURE REASON: Dysphagia, unexplained * * * * Physician Interpretation * * * * EXAM: XR MOD BARIUM SWALLOW W SPEECH HISTORY: Dysphagia, unexplained. TECHNIQUE: Fluoroscopy provided during modified barium swallow performed by the speech pathologist. Multiple AP and lateral cinefluoroscopic images are stored in a permanent archive. IMPRESSION: Completed modified barium swallow. Please refer to the speech pathologist's report for results of the study. Fluoroscopic Radiation Summary: Plane A, Air Kerma: 29.7 mGy Dose Area Product (DAP): Fluoro time: 3:08 min:sec Customer Service Correspondence Clerk: MELISSA Transcribe Date/Time: Jan 05 2025 9:46A Dictated by : Barbara NUNN MD This examination was interpreted and the report reviewed and electronically signed by: Barbara NUNN MD on Jan 05 2025 9:46AM EST [id number] Normal [facility] Basic metabolic 2000 panelon 01-04-2025 Anion gap [Moles/Vol] 12 mmol/L Normal 8-15 [facility] Comment on above: Order Comment: Speci men Type: BLOOD SPECIMENOrdering Facility: [facility] Address: [address] [place] [address] Performed By: #### 2 4321-2 ####[facility] LABORATORYCLIA [id number] [place] [address] [place] Calcium [Mass/Vol] 8.6 mg/dL Normal 8.5-10.2 [facility] Comment on above: Order Comment: Speci men Type: BLOOD SPECIMENOrdering Facility: [facility] Address: [address] [place] [address] Performed By: #### 2 4321-2 ####[facility] LABORATORYCLIA [id number] [place] [id number] [place] Chloride [Moles/Vol] 104 mmol/L Normal 98-107 [facility] Comment on above: Order Comment: Speci men Type: BLOOD SPECIMENOrdering Facility: [facility] Address: [address] [place] [address] Performed By: #### 2 4321-2 ####[facility] LABORATORYCLIA [id number] [place] [id number] [place] CO2 [Moles/Vol] 24 mmol/L Normal 22-30 [facility] Comment on above: Order Comment: Speci men Type: BLOOD SPECIMENOrdering Facility: [facility] Address: [address] [place] [address] Performed By: #### 2 4321-2 ####[facility] LABORATORYCLIA [id number] [address] [place] Creatinine [Mass/Vol] 0.58 mg/dL Low 0.73-1.22 [facility] Comment on above: Order Comment: Speci men Type: BLOOD SPECIMENOrdering Facility: [facility] Address: [address] [place] [address] Performed By: #### 2 4321-2 ####[facility] LABORATORYCLIA [id number] [address] Creatinine and Glomerular filtration rate.predicted panel (S/P/Bld) 99 mL/min/1.73m??? Normal >=60 [facility] Comment on above: Order Comment: Speci men Type: BLOOD SPECIMENOrdering Facility: [facility] Address: [address] [place] [address] Result Comment: Coco mated Glomerular Filtration Rate (eGFR) is calculated using the 2020 CKD-EPI creatinine equation. This equation utilizes serum creatinine, sex, and age as parameters. The creatinine assay has traceable calibration to isotope dilution-mass spectrometry. Refer to KDIGO guidelines for clinical interpretation. In patients with unstable renal function, e.g. those with acute kidney injury, the eGFR may not accurately reflect actual GFR. Performed By: #### 2 4321-2 ####[facility] LABORATORYCLIA [id number] [place] [address] [place] Glucose [Mass/Vol] 189 mg/dL High 74-99 [facility] Comment on above: Order Comment: Rose Mary naylor Type: BLOOD SPECIMENOrdering Facility: [facility] Address: [address] [place] [address] Result Comment: The [place] Diabetes [employer] (ADA) provides guidance for cutoff values for fasting glucose and random glucose. The ADA defines fasting as no caloric intake for at least 8 hours. Fasting plasma glucose results between 100 to 125 mg/dL indicate increased risk for diabetes (prediabetes). Fasting plasma glucose results greater than or equal to 126 mg/dL meet the criteria for diagnosis of diabetes. In the absence of unequivocal hyperglycemia, results should be confirmed by repeat testing. In a patient with classic symptoms of hyperglycemia or hyperglycemic crisis, random plasma glucose results greater than or equal to 200 mg/dL meet the criteria for diagnosis of diabetes. Reference: Standards of Medical Care in Diabetes 2016, [place] [employer]. Diabetes Care. 2016.39(Suppl 1). Performed By: #### 2 4321-2 ####[facility] LABORATORYCLIA [id number] [place] [address] [place] Potassium [Moles/Vol] 4.1 mmol/L Normal 3.7-5.1 [facility] Comment on above: Order Comment: Rose Mary naylor Type: BLOOD SPECIMENOrdering Facility: [facility] Address: [address] [place] [address] Performed By: #### 2 4321-2 ####[facility] LABORATORYCLIA [id number] [place] [address] [place] Sodium [Moles/Vol] 140 mmol/L Normal 136-144 [facility] Comment on above: Order Comment: Kimberlyi men Type: BLOOD SPECIMENOrdering Facility: [facility] Address: [address] [place] [address] Performed By: #### 2 4321-2 ####[facility] LABORATORYCLIA [id number] [place] [address] [place] Urea nitrogen [Mass/Vol] 35 mg/dL High 9-24 [facility] Comment on above: Order Comment: Speci men Type: BLOOD SPECIMENOrdering Facility: [facility] Address: [address] [place] [address] Performed By: #### 2 4321-2 ####[facility] LABORATORYCLIA [id number] [place] [id number] [place] CBC panel Auto (Bld)on 01-04 Erythrocyte distribution width (RBC) [Ratio] 12.9 % Normal 11.5-15.0 [facility] Comment on above: Order Comment: Speci men Type: BLOOD SPECIMENOrdering Facility: [facility] Address: [address] [place] [address] Performed By: #### 5 8410-2 ####[facility] LABORATORYCLIA [id number] [place] [address] [place] Hematocrit (Bld) [Volume fraction] 29.6 % Low 39.0-51.0 [facility] Comment on above: Order Comment: Speci men Type: BLOOD SPECIMENOrdering Facility: [facility] Address: [address] [place] [address] Performed By: #### 5 8410-2 ####[facility] LABORATORYCLIA [id number] [place] [address] [place] Hemoglobin (Bld) [Mass/Vol] 9.6 g/dL Low 13.0-17.0 [facility] Comment on above: Order Comment: Speci men Type: BLOOD SPECIMENOrdering Facility: [facility] Address: [address] [place] [address] Performed By: #### 5 8410-2 ####[facility] LABORATORYCLIA [id number] [place] [address] [place] MCH (RBC) [Entitic mass] 31.6 pg Normal 26.0-34.0 [facility] Comment on above: Order Comment: Speci men Type: BLOOD SPECIMENOrdering Facility: [facility] Address: [address] [place] [address] Performed By: #### 5 8410-2 ####[facility] LABORATORYCLIA [id number] [address] [place] [address] [place] MCHC (RBC) [Mass/Vol] 32.4 g/dL Normal 30.5-36.0 [facility] Comment on above: Order Comment: Speci men Type: BLOOD SPECIMENOrdering Facility: [facility] Address: [address] [place] [address] Performed By: #### 5 8410-2 ####[facility] LABORATORYCLIA [id number] [place] [address] [place] MCV (RBC) [Entitic vol] 97.4 fL Normal 80.0-100.0 [facility] Comment on above: Order Comment: Speci men Type: BLOOD SPECIMENOrdering Facility: [facility] Address: [address] [place] [address] Performed By: #### 5 8410-2 ####[facility] LABORATORYCLIA [id number] [place] [address] [place] Nucleated RBC (Bld) [#/Vol] 10*3/uL Normal <0.01 [facility] Comment on above: Order Comment: Speci men Type: BLOOD SPECIMENOrdering Facility: [facility] Address: [address] [place] [address] Performed By: #### 5 8410-2 ####[facility] LABORATORYCLIA [id number] [place] [address] [place] Platelet mean volume (Bld) [Entitic vol] 11.1 fL Normal 9.0-12.7 [facility] Comment on above: Order Comment: Speci men Type: BLOOD SPECIMENOrdering Facility: [facility] Address: [address] [place] [address] Performed By: #### 5 8410-2 ####[facility] LABORATORYCLIA [id number] [address] [place] Platelets (Bld) [#/Vol] 262 10*3/uL Normal 150-400 [facility] Comment on above: Order Comment: Speci men Type: BLOOD SPECIMENOrdering Facility: [facility] Address: [address] [place], [place] [address] Performed By: #### 5 8410-2 ####[facility] LABORATORYCLIA [id number] [place] [address] [place] RBC (Bld) [#/Vol] 3.04 10*6/uL Low 4.20-6.00 [facility] Comment on above: Order Comment: Speci men Type: BLOOD SPECIMENOrdering Facility: [facility] Address: [address] [place] [address] Performed By: #### 5 8410-2 ####[facility] LABORATORYCLIA [id number] [place] [address] [facility] [place] WBC (Bld) [#/Vol] 11.98 10*3/uL High 3.70-11.00 [facility] Comment on above: Order Comment: Speci men Type: BLOOD SPECIMENOrdering Facility: [facility] Address: [address] [place] [address] Performed By: #### 5 8410-2 ####[facility] LABORATORYCLIA [id number] [place] [address] [facility] [place] ALLIED HEALTHon 01-03-2025 ALLIED HEALTH HNO ID: [id number] Author: PATTI LEONARD RT(Radha) Service: Radiology Author Type: Technologist Type: Allied Health Filed: 01/03/2025 09:14 Note Text: Radiology Service Progress Note PATIENT NAME: Santa Pearl DATE OF SERVICE: January 03, 2025 TIME: 9:14 AM PATIENT IDENTITY VERIFICATION COMPLETED USING TWO (2) IDENTIFIERS: Name and Date of confirmed by patient verbally and Name and Date of confirmed by identification band. FALL SCREENING: Has the patient had 2 falls in the last year or 1 fall with injury or currently using an Ambulatory Assistive Device (Walker, Cane, Wheelchair, Crutches, etc.)? Inpatient: Screened on floor PATIENT GENDER DATA: Assigned male at PATIENT RELEVANT IMPLANT DATA REVIEWED: Not Applicable PATIENT PRESENTS WITH AN IMPLANTABLE OR ATTACHED UNIFORM CAP OPERATOR: No RADIOLOGY DEPARTMENT: General X-ray: Exam(s) Completed: Chest X-Ray PERIPHERAL IV DATA: Not applicable SIGNED BY: Patti Leonard RT(R) January 03, 2025 9:14 AM Normal [facility] Basic metabolic 2000 panelon 01-03-2025 Anion gap [Moles/Vol] 10 mmol/L Normal 8-15 [facility] Comment on above: Order Comment: Speci men Type: BLOOD SPECIMENOrdering Facility: [facility] Address: [address] [place] [address] Performed By: #### 2 4321-2 ####[facility] LABORATORYCLIA [id number] [place] [id number] [place] Calcium [Mass/Vol] 8.6 mg/dL Normal 8.5-10.2 [facility] Comment on above: Order Comment: Speci men Type: BLOOD SPECIMENOrdering Facility: [facility] Address: [address] [place] [address] Performed By: #### 2 4321-2 ####[facility] LABORATORYCLIA [id number] [place] [address] [place] Chloride [Moles/Vol] 103 mmol/L Normal 98-107 [facility] Comment on above: Order Comment: Speci men Type: BLOOD SPECIMENOrdering Facility: [facility] Address: [address] [place] [address] Performed By: #### 2 4321-2 ####[facility] LABORATORYCLIA [id number] [place] [address] [place] CO2 [Moles/Vol] 27 mmol/L Normal 22-30 [facility] Comment on above: Order Comment: Speci men Type: BLOOD SPECIMENOrdering Facility: [facility] Address: [address] [place] [address] Performed By: #### 2 4321-2 ####[facility] LABORATORYCLIA [id number] [place] [address] [place] Creatinine [Mass/Vol] 0.58 mg/dL Low 0.73-1.22 [facility] Comment on above: Order Comment: Speci men Type: BLOOD SPECIMENOrdering Facility: [facility] Address: [address] [place] [address] Performed By: #### 2 4321-2 ####[facility] LABORATORYCLIA [id number] [place] [address] [place] Creatinine and Glomerular filtration rate.predicted panel (S/P/Bld) 99 mL/min/1.73m??? Normal >=60 [facility] Comment on above: Order Comment: Rose Mary naylor Type: BLOOD SPECIMENOrdering Facility: [facility] Address: [address] [place] [address] Result Comment: Coco mated Glomerular Filtration Rate (eGFR) is calculated using the 2020 CKD-EPI creatinine equation. This equation utilizes serum creatinine, sex, and age as parameters. The creatinine assay has traceable calibration to isotope dilution-mass spectrometry. Refer to KDIGO guidelines for clinical interpretation. In patients with unstable renal function, e.g. those with acute kidney injury, the eGFR may not accurately reflect actual GFR. Performed By: #### 2 4321-2 ####[facility] LABORATORYCLIA [id number] [place] [address] [place] Glucose [Mass/Vol] 207 mg/dL High 74-99 [facility] Comment on above: Order Comment: Rose Mary naylor Type: BLOOD SPECIMENOrdering Facility: [facility] Address: [address] [place] [address] Result Comment: The [place] Diabetes [employer] (ADA) provides guidance for cutoff values for fasting glucose and random glucose. The ADA defines fasting as no caloric intake for at least 8 hours. Fasting plasma glucose results between 100 to 125 mg/dL indicate increased risk for diabetes (prediabetes). Fasting plasma glucose results greater than or equal to 126 mg/dL meet the criteria for diagnosis of diabetes. In the absence of unequivocal hyperglycemia, results should be confirmed by repeat testing. In a patient with classic symptoms of hyperglycemia or hyperglycemic crisis, random plasma glucose results greater than or equal to 200 mg/dL meet the criteria for diagnosis of diabetes. Reference: Standards of Medical Care in Diabetes 2016, [place] [employer]. Diabetes Care. 2016.39(Suppl 1). Performed By: #### 2 4321-2 ####[facility] LABORATORYCLIA [id number] [address] [place] [address] [place] Potassium [Moles/Vol] 4.1 mmol/L Normal 3.7-5.1 [facility] Comment on above: Order Comment: Speci men Type: BLOOD SPECIMENOrdering Facility: [facility] Address: [address] [place] [address] Performed By: #### 2 4321-2 ####[facility] LABORATORYCLIA [id number] [place] [address] [place] Sodium [Moles/Vol] 140 mmol/L Normal 136-144 [facility] Comment on above: Order Comment: Speci men Type: BLOOD SPECIMENOrdering Facility: [facility] Address: [address] [place] [address] Performed By: #### 2 4321-2 ####[facility] LABORATORYCLIA [id number] [place] [address] [place] Urea nitrogen [Mass/Vol] 18 mg/dL Normal 9-24 [facility] Comment on above: Order Comment: Speci men Type: BLOOD SPECIMENOrdering Facility: [facility] Address: [address] [place] [address] Performed By: #### 2 4321-2 ####[facility] LABORATORYCLIA [id number] [place] [address] [place] CBC panel Auto (Bld)on 01-03 Erythrocyte distribution width (RBC) [Ratio] 12.4 % Normal 11.5-15.0 [facility] Comment on above: Order Comment: Speci men Type: BLOOD SPECIMENOrdering Facility: [facility] Address: [address] [place] [address] Performed By: #### 5 8410-2 ####[facility] LABORATORYCLIA [id number] [place] [address] [place] Hematocrit (Bld) [Volume fraction] 31.2 % Low 39.0-51.0 [facility] Comment on above: Order Comment: Speci men Type: BLOOD SPECIMENOrdering Facility: [facility] Address: [address] [place] [address] Performed By: #### 5 8410-2 ####[facility] LABORATORYCLIA [id number] [address] [place] [address] [place] Hemoglobin (Bld) [Mass/Vol] 10.2 g/dL Low 13.0-17.0 [facility] Comment on above: Order Comment: Speci men Type: BLOOD SPECIMENOrdering Facility: [facility] Address: [address] [place] [address] Performed By: #### 5 8410-2 ####[facility] LABORATORYCLIA [id number] [address] [place] [address] [place] MCH (RBC) [Entitic mass] 32.0 pg Normal 26.0-34.0 [facility] Comment on above: Order Comment: Speci men Type: BLOOD SPECIMENOrdering Facility: [facility] Address: [address] [place] [address] Performed By: #### 5 8410-2 ####[facility] LABORATORYCLIA [id number] [address] [place] [address] [facility] MCHC (RBC) [Mass/Vol] 32.7 g/dL Normal 30.5-36.0 [facility] Comment on above: Order Comment: Speci men Type: BLOOD SPECIMENOrdering Facility: [facility] Address: [address] [place] [address] Performed By: #### 5 8410-2 ####[facility] LABORATORYCLIA [id number] [address] [place] MCV (RBC) [Entitic vol] 97.8 fL Normal 80.0-100.0 [facility] Comment on above: Order Comment: Speci men Type: BLOOD SPECIMENOrdering Facility: [facility] Address: [address] [place] [address] Performed By: #### 5 8410-2 ####[facility] LABORATORYCLIA [id number] [address] [place] [address] [place] Nucleated RBC (Bld) [#/Vol] 10*3/uL Normal <0.01 [facility] Comment on above: Order Comment: Speci men Type: BLOOD SPECIMENOrdering Facility: [facility] Address: [address] [place] [address] Performed By: #### 5 8410-2 ####[facility] LABORATORYCLIA [id number] [address] [place], [place] [address] [place] Platelet mean volume (Bld) [Entitic vol] 11.2 fL Normal 9.0-12.7 [facility] Comment on above: Order Comment: Speci men Type: BLOOD SPECIMENOrdering Facility: [facility] Address: [address] [place] [address] Performed By: #### 5 8410-2 ####[facility] LABORATORYCLIA [id number] [place] [address] [place] Platelets (Bld) [#/Vol] 215 10*3/uL Normal 150-400 [facility] Comment on above: Order Comment: Speci men Type: BLOOD SPECIMENOrdering Facility: [facility] Address: [address] [place] [address] Performed By: #### 5 8410-2 ####[facility] LABORATORYCLIA [id number] [place] [address] [place] RBC (Bld) [#/Vol] 3.19 10*6/uL Low 4.20-6.00 [facility] Comment on above: Order Comment: Speci men Type: BLOOD SPECIMENOrdering Facility: [facility] Address: [address] [place] [address] Performed By: #### 5 8410-2 ####[facility] LABORATORYCLIA [id number] [place] [address] [place] WBC (Bld) [#/Vol] 9.13 10*3/uL Normal 3.70-11.00 [facility] Comment on above: Order Comment: Speci men Type: BLOOD SPECIMENOrdering Facility: [facility] Address: [address] [place] [address] Performed By: #### 5 8410-2 ####[facility] LABORATORYCLIA [id number] [place] [address] [place] XR CHEST 2V FRONTAL/LATon XR CHEST 2V FRONTAL/LAT * * *Final Repor t* * * DATE OF EXAM: Jan 03 2025 9:15AM LUX 5291 - XR CHEST 2V FRONTAL/LAT / PROCEDURE REASON: Cough * * * * Physician Interpretation * * * * EXAMINATION: CHEST RADIOGRAPH (2 VIEW FRONTAL and LATERAL) CLINICAL HISTORY: Cough MQ: [id number] EXAM DATE/TIME: 01/03/2025 9:15 AM COMPARISON: Chest radiograph 12/31/2019 RESULT: Lines, tubes, and devices: None. Lungs and pleura: No consolidation. No lung mass. No pleural effusion. No pneumothorax. Cardiomediastinal silhouette: Normal cardiomediastinal silhouette. Mild atherosclerotic calcifications of the aortic arch. Bones and soft tissues: Thoracic spondylosis. IMPRESSION: No acute radiographic abnormality. Customer Service Correspondence Clerk: PSCB Transcribe Date/Time: Jan 04 2025 7:20A Dictated by : KANU BARBER MD This examination was interpreted and the report reviewed and electronically signed by: KANU BARBER MD on Jan 04 2025 7:21AM EST [id number] Normal [facility] Basic metabolic 2000 panelon 01-02-2025 Anion gap [Moles/Vol] 10 mmol/L Normal 8-15 [facility] Comment on above: Order Comment: Speci men Type: BLOOD SPECIMENOrdering Facility: [facility] Address: [address] [place] [address] Performed By: #### 2 4321-2 ####[facility] LABORATORYCLIA [id number] [place] [address] [place] Calcium [Mass/Vol] 8.0 mg/dL Low 8.5-10.2 [facility] Comment on above: Order Comment: Speci men Type: BLOOD SPECIMENOrdering Facility: [facility] Address: [address] [place] [address] Performed By: #### 2 4321-2 ####[facility] LABORATORYCLIA [id number] [place] [address] [place] Chloride [Moles/Vol] 102 mmol/L Normal 98-107 [facility] Comment on above: Order Comment: Speci men Type: BLOOD SPECIMENOrdering Facility: [facility] Address: [address] [place] [address] Performed By: #### 2 4321-2 ####[facility] LABORATORYCLIA [id number] [place] [address] [place] CO2 [Moles/Vol] 26 mmol/L Normal 22-30 [facility] Comment on above: Order Comment: Speci men Type: BLOOD SPECIMENOrdering Facility: [facility] Address: [address] [place] [address] Performed By: #### 2 4321-2 ####[facility] LABORATORYCLIA [id number] [address] [place] [facility] Creatinine [Mass/Vol] 0.64 mg/dL Low 0.73-1.22 [facility] Comment on above: Order Comment: Speci men Type: BLOOD SPECIMENOrdering Facility: [facility] Address: [address] [place] [address] Performed By: #### 2 4321-2 ####[facility] LABORATORYCLIA [id number] [place] [address] [facility] Creatinine and Glomerular filtration rate.predicted panel (S/P/Bld) 96 mL/min/1.73m??? Normal >=60 [facility] Comment on above: Order Comment: Speci men Type: BLOOD SPECIMENOrdering Facility: [facility] Address: [address] [place] [address] Result Comment: Coco mated Glomerular Filtration Rate (eGFR) is calculated using the 2020 CKD-EPI creatinine equation. This equation utilizes serum creatinine, sex, and age as parameters. The creatinine assay has traceable calibration to isotope dilution-mass spectrometry. Refer to KDIGO guidelines for clinical interpretation. In patients with unstable renal function, e.g. those with acute kidney injury, the eGFR may not accurately reflect actual GFR. Performed By: #### 2 4321-2 ####[facility] LABORATORYCLIA [id number] [place] [address] [place] Glucose [Mass/Vol] 145 mg/dL High 74-99 [facility] Comment on above: Order Comment: Speci men Type: BLOOD SPECIMENOrdering Facility: [facility] Address: [address] [place] [address] Result Comment: The [place] [employer] (ADA) provides guidance for cutoff values for fasting glucose and random glucose. The ADA defines fasting as no caloric intake for at least 8 hours. Fasting plasma glucose results between 100 to 125 mg/dL indicate increased risk for diabetes (prediabetes). Fasting plasma glucose results greater than or equal to 126 mg/dL meet the criteria for diagnosis of diabetes. In the absence of unequivocal hyperglycemia, results should be confirmed by repeat testing. In a patient with classic symptoms of hyperglycemia or hyperglycemic crisis, random plasma glucose results greater than or equal to 200 mg/dL meet the criteria for diagnosis of diabetes. Reference: Standards of Medical Care in Diabetes 2016, [place] [employer]. Diabetes Care. 2016.39(Suppl 1). Performed By: #### 2 4321-2 ####[facility] LABORATORYCLIA [id number] [place] [address] [place] Potassium [Moles/Vol] 3.6 mmol/L Low 3.7-5.1 [facility] Comment on above: Order Comment: Kimberlyi men Type: BLOOD SPECIMENOrdering Facility: [facility] Address: [address] [place] [address] Performed By: #### 2 4321-2 ####[facility] LABORATORYCLIA [id number] [place] [id number] [place] Sodium [Moles/Vol] 138 mmol/L Normal 136-144 [facility] Comment on above: Order Comment: Speci men Type: BLOOD SPECIMENOrdering Facility: [facility] Address: [address] [place] [address] Performed By: #### 2 4321-2 ####[facility] LABORATORYCLIA [id number] [place] [address] [place] Urea nitrogen [Mass/Vol] 13 mg/dL Normal 9-24 [facility] Comment on above: Order Comment: Speci men Type: BLOOD SPECIMENOrdering Facility: [facility] Address: [address] [place] [address] Performed By: #### 2 4321-2 ####[facility] LABORATORYCLIA [id number] [address] [place], [place] [address] [facility] CBC panel Auto (Bld)on 01-02 Erythrocyte distribution width (RBC) [Ratio] 12.9 % Normal 11.5-15.0 [facility] Comment on above: Order Comment: Speci men Type: BLOOD SPECIMENOrdering Facility: [facility] Address: [address] [place] [address] Performed By: #### 5 8410-2 ####[facility] LABORATORYCLIA [id number] [address] [place], [place] [address] [place] [facility] Hematocrit (Bld) [Volume fraction] 30.2 % Low 39.0-51.0 [facility] Comment on above: Order Comment: Speci men Type: BLOOD SPECIMENOrdering Facility: [facility] Address: [address] [place] [address] Performed By: #### 5 8410-2 ####[facility] LABORATORYCLIA [id number] [place] [id number] [place] Hemoglobin (Bld) [Mass/Vol] 10.0 g/dL Low 13.0-17.0 [facility] Comment on above: Order Comment: Speci men Type: BLOOD SPECIMENOrdering Facility: [facility] Address: [address] [place] [address] Performed By: #### 5 8410-2 ####[facility] LABORATORYCLIA [id number] [place] [id number] [place] MCH (RBC) [Entitic mass] 32.5 pg Normal 26.0-34.0 [facility] Comment on above: Order Comment: Speci men Type: BLOOD SPECIMENOrdering Facility: [facility] Address: [address] [place] [address] Performed By: #### 5 8410-2 ####[facility] LABORATORYCLIA [id number] [address] [place] [address] [place] MCHC (RBC) [Mass/Vol] 33.1 g/dL Normal 30.5-36.0 [facility] Comment on above: Order Comment: Speci men Type: BLOOD SPECIMENOrdering Facility: [facility] Address: [address] [place] [address] Performed By: #### 5 8410-2 ####[facility] LABORATORYCLIA [id number] [place] [address] [place] MCV (RBC) [Entitic vol] 98.1 fL Normal 80.0-100.0 [facility] Comment on above: Order Comment: Speci men Type: BLOOD SPECIMENOrdering Facility: [facility] Address: [address] [place] [address] Performed By: #### 5 8410-2 ####[facility] LABORATORYCLIA [id number] [place] [address] [place] Nucleated RBC (Bld) [#/Vol] 10*3/uL Normal <0.01 [facility] Comment on above: Order Comment: Speci men Type: BLOOD SPECIMENOrdering Facility: [facility] Address: [address] [place] [address] Performed By: #### 5 8410-2 ####[facility] LABORATORYCLIA [id number] [address] [place] Platelet mean volume (Bld) [Entitic vol] 11.0 fL Normal 9.0-12.7 [facility] Comment on above: Order Comment: Speci men Type: BLOOD SPECIMENOrdering Facility: [facility] Address: [address] [place] [address] Performed By: #### 5 8410-2 ####[facility] LABORATORYCLIA [id number] [place] [address] [place] Platelets (Bld) [#/Vol] 173 10*3/uL Normal 150-400 [facility] Comment on above: Order Comment: Speci men Type: BLOOD SPECIMENOrdering Facility: [facility] Address: [address] [place], [place] [address] Performed By: #### 5 8410-2 ####[facility] LABORATORYCLIA [id number] [place] [id number] [place] RBC (Bld) [#/Vol] 3.08 10*6/uL Low 4.20-6.00 [facility] Comment on above: Order Comment: Speci men Type: BLOOD SPECIMENOrdering Facility: [facility] Address: [address] [place] [address] Performed By: #### 5 8410-2 ####[facility] LABORATORYCLIA [id number] [place] [id number] [place] WBC (Bld) [#/Vol] 8.96 10*3/uL Normal 3.70-11.00 [facility] Comment on above: Order Comment: Speci men Type: BLOOD SPECIMENOrdering Facility: [facility] Address: [address] [place] [address] Performed By: #### 5 8410-2 ####[facility] LABORATORYCLIA [id number] [place] [id number] [facility] [place] CNCOon 01-02-2025 CNCO Letter Text Normal [facility] THERAPY NTon 01-02-2025 THERAPY NT HNO ID: [id number] Author: ABBY DELUNA [facility]-CLIENT BUSINESS MANAGER Service: Speech/Swallow Author Type: Speech Language Pathologist Type: Therapy (PT/OT/Speech/Resp) Filed: 01/02/2025 11:49 Note Text: Speech Therapy Treatment SERVICE DATE: 01/02/2025 SERVICE TIME: 0858 to 1039 ROOM: [place] [address] IMPRESSION Patient seen for follow-up treatment targeting pharyngeal dysphagia. Evidence of: Pharyngeal dysphagia An elevated risk for aspiration: Yes Swallow Efficiency: Impaired Speech Rehab Potential: Good RECOMMENDATIONS Diet Recommendations Pureed IDDSI Level 4 No Liquids during meals Shirley Free Water Protocol to promote hydration. Requirements for participation are below: Continue current diet of puree foods only Allow for IDDSI-0 thin water/ice only outside the presence of any other food/liquid Aggressive oral hygiene must be completed prior to consumption of IDDSI-0 thin water/ice Swallow Strategy Recommendations Sit upright 90 degrees for all PO, Maintain an upright position 20-30 minutes following all oral intake, Rigid Oral Hygiene Nursing Recommendations Confirm Dentures appropriately placed for all PO, Routine Rigid Oral Hygiene Instrumental Swallow Study Recommendations Modified Barium Swallow Study (MBSS) on 01/05/25 to determine progress Recommended Consults ENT Response to Therapy Interventions: Good participation in activities Rehabilitation Precautions: Aspiration Precautions, Dysphagia DISCHARGE RECOMMENDATIONS Recommended Discharge Disposition: Unable to determine CURRENT HOSPITAL COURSE 12/31 Patient underwent left hip surgery. He had emesis during surgery that required emergent suctioning. CXR negative. 01/01 MBSS completed with aspiration of all liquids. Reason for Speech Therapy Consult: Patient complained of difficulty swallowing. Relevant Past Medical History: CAD, Ramirez's palsy, SAH, HTN HOME ENVIRONMENT / PRIOR FUNCTIONAL LEVEL Patient Lives With: Spouse Prior Swallowing Function/Diet Textures: Pureed IDDSI Level 4, Thin Liquids IDDSI Level 0 SUBJECTIVE Patient was pleasant and participated well in treatment. Patient's spouse, Adilia, was present at bedside. Reviewed results and images from MBSS. Patient reported he continued coughing and expectorating barium through the night. Perceptually, patient's voice remains the same. Discussed current barrier is lack of ENT availability at [facility]. Discussed anticipating improvements in swallowing in 2-3 days given suspected etiology is trauma from suctioning. THERAPY DIAGNOSIS Dysphagia, pharyngeal phase TREATMENT INTERVENTIONS Dysphagia Therapy (84253) Skilled Treatment Time (minutes): 85 TRAINING AND EDUCATION PROVIDED IN Dysphagia Management, Results and Recommendations of Session, Modified Barium Swallow Results, Swallowing Strategies THERAPEUTIC SKILLS USED Education on role of discipline / importance of activity, Family / caregiver counseling / training, Verbal cuing, Instruction in self-monitoring / self-assessment OBJECTIVE Current Status Oral Hygiene: Clear, moist oral cavity Dentition: Dentures-Lower Partial, Dentures-Upper Partial Current Feeding Method: Oral Current Diet Textures: NPO Current Level Of Communication: Verbal Current Management Of Secretions: Able to self-manage Oral Motor Exam: Within Functional Limits Except Palatal Elevation: (Erythema noted on right tonsil on 01/01 evaluation.) SWALLOW ASSESSMENT Position Of Patient During Assessment: Upright In Bed Feeding Method: Patient Self-Fed Consistencies Presented: Thin Liquids IDDSI Level 0, Pureed Solids IDDSI Level 4 Thin Liquids Oral Phase: (WNL) Thin Liquids Pharyngeal Phase: Multiple Swallows, Throat Clearing- Immediate Pureed Solids Oral Phase: (WNL) Pureed Solids Pharyngeal Phase: Multiple Swallows Response to Consistencies Presented: Thin water was provided prior to the puree to reduce risk of aspirating pharyngeal residue. Patient complained of globus sensation with both thin liquid and puree. Compensatory Strategies Utilized During Assessment: Sit upright 90 degrees for all PO, Small Bite/Sip GOALS SWALLOWING: Patient / Caregiver will demonstrate knowledge of taught compensatory strategies and dietary consistency recommendations to optimize functional swallow function without overt clinical signs and symptoms of aspiration or dysphagia Progress Toward Goals: Progressing as expected Patient /Caregiver Goals: Go Home PLAN ST Frequency: 3 Times Per Week Treatment Interventions: Dysphagia Management Plan of Care Developed with: Patient, Physician, Nurse Practitioner, Nurse Plan for next visit: Swallowing Strategies, Modified Barium Swallow Results, Dysphagia Management SIGNATURE: Abby Deluna [facility]-CLIENT BUSINESS MANAGER PATIENT NAME: Santa Pearl DATE: January 02, 2025 TIME: 11:47 AM [facility] THERAPY NT HNO ID: [id number] Author: RILEY SHINE PT, DPT Service: Physical Therapy Author Type: Physical Therapist Type: Therapy (PT/OT/Speech/Resp) Filed: 01/02/2025 11:23 Note Text: PHYSICAL THERAPY MISSED VISIT SERVICE DATE: 01/02/2025 SERVICE TIME: 1031 ROOM: [place] [address] Patient not seen due to Patient Not Available. Another service bedside. D/C held yesterday d/t difficulty swallowing after emesis during surgery requiring suctioning. Pt observed ambulating in hallway with this morning. Cleared from PT standpoint for D/C home with Home PT when medically cleared. PT will remain available if pt has any questions/concerns prior to D/C. SIGNATURE: Riley Shine, PT, DPT PATIENT NAME: Santa Pearl DATE: January 02, 2025 TIME: 11:20 AM [facility] Basic metabolic 2000 panelon 01-01-2025 Anion gap [Moles/Vol] 10 mmol/L Normal 8-15 [facility] Comment on above: Order Comment: Speci men Type: BLOOD SPECIMENOrdering Facility: [facility] Address: [address] [place] [address] Performed By: #### 2 4321-2 ####[facility] LABORATORYCLIA [id number] [address] [place], [place] [address] [place] Calcium [Mass/Vol] 8.3 mg/dL Low 8.5-10.2 [facility] Comment on above: Order Comment: Speci men Type: BLOOD SPECIMENOrdering Facility: [facility] Address: [address] [place] [address] Performed By: #### 2 4321-2 ####[facility] LABORATORYCLIA [id number] [address] [place], [place] [address] [place] Chloride [Moles/Vol] 103 mmol/L Normal 98-107 [facility] Comment on above: Order Comment: Speci men Type: BLOOD SPECIMENOrdering Facility: [facility] Address: [address] [place] [address] Performed By: #### 2 4321-2 ####[facility] LABORATORYCLIA [id number] [place] [address] [place] CO2 [Moles/Vol] 27 mmol/L Normal 22-30 [facility] Comment on above: Order Comment: Speci men Type: BLOOD SPECIMENOrdering Facility: [facility] Address: [address] [place] [address] Performed By: #### 2 4321-2 ####[facility] LABORATORYCLIA [id number] [place] [address] [place] Creatinine [Mass/Vol] 0.74 mg/dL Normal 0.73-1.22 [facility] Comment on above: Order Comment: Speci men Type: BLOOD SPECIMENOrdering Facility: [facility] Address: [address] [place] [address] Performed By: #### 2 4321-2 ####[facility] LABORATORYCLIA [id number] [place] [address] [place] Creatinine and Glomerular filtration rate.predicted panel (S/P/Bld) 92 mL/min/1.73m??? Normal >=60 [facility] Comment on above: Order Comment: Speci men Type: BLOOD SPECIMENOrdering Facility: [facility] Address: [address] [place] [address] Result Comment: Coco mated Glomerular Filtration Rate (eGFR) is calculated using the 2020 CKD-EPI creatinine equation. This equation utilizes serum creatinine, sex, and age as parameters. The creatinine assay has traceable calibration to isotope dilution-mass spectrometry. Refer to KDIGO guidelines for clinical interpretation. In patients with unstable renal function, e.g. those with acute kidney injury, the eGFR may not accurately reflect actual GFR. Performed By: #### 2 4321-2 ####[facility] LABORATORYCLIA [id number] [place] [id number] [place] Glucose [Mass/Vol] 149 mg/dL High 74-99 [facility] Comment on above: Order Comment: Rose Mary naylor Type: BLOOD SPECIMENOrdering Facility: [facility] Address: [address] [place] [address] Result Comment: The [place] Diabetes [employer] (ADA) provides guidance for cutoff values for fasting glucose and random glucose. The ADA defines fasting as no caloric intake for at least 8 hours. Fasting plasma glucose results between 100 to 125 mg/dL indicate increased risk for diabetes (prediabetes). Fasting plasma glucose results greater than or equal to 126 mg/dL meet the criteria for diagnosis of diabetes. In the absence of unequivocal hyperglycemia, results should be confirmed by repeat testing. In a patient with classic symptoms of hyperglycemia or hyperglycemic crisis, random plasma glucose results greater than or equal to 200 mg/dL meet the criteria for diagnosis of diabetes. Reference: Standards of Medical Care in Diabetes 2016, [place] [employer]. Diabetes Care. 2016.39(Suppl 1). Performed By: #### 2 4321-2 ####[facility] LABORATORYCLIA [id number] [place] [id number] [place] Potassium [Moles/Vol] 4.1 mmol/L Normal 3.7-5.1 [facility] Comment on above: Order Comment: Rose Mary naylor Type: BLOOD SPECIMENOrdering Facility: [facility] Address: [address] [place] [address] Performed By: #### 2 4321-2 ####[facility] LABORATORYCLIA [id number] [place] [address] [place] Sodium [Moles/Vol] 140 mmol/L Normal 136-144 [facility] Comment on above: Order Comment: Speci men Type: BLOOD SPECIMENOrdering Facility: [facility] Address: [address] [place], [place] [address] Performed By: #### 2 4321-2 ####[facility] LABORATORYCLIA [id number] [place] [address] [place] [facility] Urea nitrogen [Mass/Vol] 14 mg/dL Normal 9-24 [facility] Comment on above: Order Comment: Speci men Type: BLOOD SPECIMENOrdering Facility: [facility] Address: [address] [place] [address] Performed By: #### 2 4321-2 ####[facility] LABORATORYCLIA [id number] [place] [address] [facility] CASE MANAGEMon 01-01-2025 CASE MANAGEM HNO ID: [id number] Author: KATHRYN JIMENEZ RN Service: Care Management Author Type: Registered Nurse Type: Care Mgt Progress Note Filed: 01/01/2025 12:36 Note Text: CARE MANAGEMENT DISCHARGE NOTE SERVICE DATE: January 01, 2025 SERVICE TIME: 1235 Admission Date: 12/31/2024 LOS: 0 days Discharge Arrangement Discharge Arrangement: Home with Home Health Services Arranged Medical Services: Skilled Home Health Care Type: Physical Therapy, Occupational Therapy Provider Name AND Phone: See Below Caregiver Assessment Caregiver is ready, willing and able to meet the patient's needs as recommended by the inter-professional team: Yes Name of Caregiver: Spouse Adilia Transportation Arrangements Transportation Arrangements: Car Handoff Communication: Handoff to: Primary Care Physician Primary Care Physician Name/Phone: Josue Aguilera Additional Information: Summary of Care Patient to discharge home with his providing transportation. He has all DME for home. [facility] to provide home care. Summary of care sent to care team, PCP, C. Discharge Information Row Name Admission (Current) from 12/31/[address] [facility] Start of Care -- WITHIN 24-48 HRS SIGNATURE: Kathryn Jimenez RN PATIENT NAME: Santa Pearl DATE: January 01, 2025 TIME: 12:35 PM Normal [facility] CBC panel Auto (Bld)on 01-01 Erythrocyte distribution width (RBC) [Ratio] 12.9 % Normal 11.5-15.0 [facility] Comment on above: Order Comment: Speci men Type: BLOOD SPECIMENOrdering Facility: [facility] Address: [address] [place] [address] Performed By: #### 5 8410-2 ####[facility] LABORATORYCLIA [id number] [address] [place], [place] [address] [place] Hematocrit (Bld) [Volume fraction] 32.7 % Low 39.0-51.0 [facility] Comment on above: Order Comment: Speci men Type: BLOOD SPECIMENOrdering Facility: [facility] Address: [address] [place] [address] Performed By: #### 5 8410-2 ####[facility] LABORATORYCLIA [id number] [place] [id number] [facility] [place] Hemoglobin (Bld) [Mass/Vol] 10.7 g/dL Low 13.0-17.0 [facility] Comment on above: Order Comment: Speci men Type: BLOOD SPECIMENOrdering Facility: [facility] Address: [address] [place] [address] Performed By: #### 5 8410-2 ####[facility] LABORATORYCLIA [id number] [place] [id number] [place] MCH (RBC) [Entitic mass] 32.3 pg Normal 26.0-34.0 [facility] Comment on above: Order Comment: Speci men Type: BLOOD SPECIMENOrdering Facility: [facility] Address: [address] [place] [address] Performed By: #### 5 8410-2 ####[facility] LABORATORYCLIA [id number] [place] [id number] [place] MCHC (RBC) [Mass/Vol] 32.7 g/dL Normal 30.5-36.0 [facility] Comment on above: Order Comment: Speci men Type: BLOOD SPECIMENOrdering Facility: [facility] Address: [address] [place] [address] Performed By: #### 5 8410-2 ####[facility] LABORATORYCLIA [id number] [address] [place], [place] [address] [place] MCV (RBC) [Entitic vol] 98.8 fL Normal 80.0-100.0 [facility] Comment on above: Order Comment: Speci men Type: BLOOD SPECIMENOrdering Facility: [facility] Address: [address] [place] [address] Performed By: #### 5 8410-2 ####[facility] LABORATORYCLIA [id number] [place] [id number] [place] Nucleated RBC (Bld) [#/Vol] 10*3/uL Normal <0.01 [facility] Comment on above: Order Comment: Speci men Type: BLOOD SPECIMENOrdering Facility: [facility] Address: [address] [place] [address] Performed By: #### 5 8410-2 ####[facility] LABORATORYCLIA [id number] [address] [place] Platelet mean volume (Bld) [Entitic vol] 10.7 fL Normal 9.0-12.7 [facility] Comment on above: Order Comment: Speci men Type: BLOOD SPECIMENOrdering Facility: [facility] Address: [address] [place] [address] Performed By: #### 5 8410-2 ####[facility] LABORATORYCLIA [id number] [address] [place] Platelets (Bld) [#/Vol] 193 10*3/uL Normal 150-400 [facility] Comment on above: Order Comment: Speci men Type: BLOOD SPECIMENOrdering Facility: [facility] Address: [address] [place] [address] Performed By: #### 5 8410-2 ####[facility] LABORATORYCLIA [id number] [place] [id number] [facility] RBC (Bld) [#/Vol] 3.31 10*6/uL Low 4.20-6.00 [facility] Comment on above: Order Comment: Rose Mary cyndy Type: BLOOD SPECIMENOrdering Facility: [facility] Address: [address] [place] [address] Performed By: #### 5 8410-2 ####[facility] LABORATORYCLIA [id number] [address] WBC (Bld) [#/Vol] 9.31 10*3/uL Normal 3.70-11.00 [facility] Comment on above: Order Comment: Specpenny cyndy Type: BLOOD SPECIMENOrdering Facility: [facility] Address: [address] [place] [address] Performed By: #### 5 8410-2 ####[facility] LABORATORYCLIA [id number] [address] CNDSon 01-01-2025 CNDS HNO ID: [id number] Author: RAVIN HOUGH MD Service: Orthopaedic Surgery Author Type: Resident Type: Discharge Summary Filed: 01/06/2025 08:17 Note Text: Attestation signed by Ravin Hough MD at 01/06/2025 8:17 AM Instructions given Ravin Hough MD ORTHOPEDIC SURGERY DISCHARGE SUMMARY ADMISSION DATE: 12/31/2024 DISCHARGE DATE: 01/05/2025 Attending Physician: Ravin Hough MD Reason for Hospitalization: left total hip arthroplasty Admitting Diagnosis: left hip OA Discharge Diagnosis: left hip OA Additional Diagnoses: ACTIVE PROBLEM LIST Hypothyroidism Status Post Total Bilateral Knee Replacement 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 Other Hyperlipidemia Dysmetabolic Syndrome Thyroid Nodule 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 Coronary Artery S/P Right Coronary Artery (Rca) Stent Placement 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 The procedure, its risks, benefits, and potential complications were discussed in detail with the patient prior to surgery. Understanding of all topics was conveyed by the patient, and consent was given for surgery. The patient was electively admitted to the [facility] on 12/31/2024. Surgery was scheduled and on 12/31/2024 he underwent a Procedure(s) (LRB): ARTHROPLASTY REPLACE JOINT TOTAL HIP (Left) with Spinal Anesthesia. The procedure was tolerated well and he was sent to the post operative recovery room in stable condition, where he also did well. Once on the floor his postoperative course was complicated by severe dysphagia, trouble swallowing. Our speech/language and medicine teams helped us with diagnosis and treatment. He underwent barium swallow study which showed dysfunction of the swallowing mechanism. We scaled back his diet according to speech/language therapy recommendations. Over the course of the weekend, he significantly improved. A repeat barium swallow on the day of discharge showed significant improvement. His diet was advanced significantly and he was determined to be safe to discharge home with modified diet and close follow-up with ENT. His pain was well controlled on oral medication alone prior to discharge. He worked with Physical and Occupational Therapy who recommended he be discharged home with home PT. His dressing remained clean dry and intact throughout his stay. He remained afebrile with stable vital signs throughout his stay. He was stable for discharge to home on POD#5. Complete and comprehensive discharge instructions were provided to the patient as well as necessary prescriptions. The patient had no further questions and was advised to call with any questions, concerns, or problems. Patient was hemodynamically stable postoperatively. Relevant labs included: Hemoglobin (g/dL) Date Value 01/01/2025 10.7 (L) 12/10/2024 13.0 10/02/2023 13.9 Hematocrit (%) Date Value 01/01/2025 32.7 (L) 12/10/2024 38.9 (L) 10/02/2023 43.0 Discharge Antibiotics: None Prior to surgery the patient was treated with antibiotics and continued with antibiotics 24 hours postoperatively Transfers: PACU and then to the hospital surgical floor when PACU criteria was met. DVT Prophylaxis: Sequential Compression Devices, aspirin 81mg BID Pain Control: Oral narcotics Complications: Continued throughout the hospital course without complications. Patient Condition @ Discharge: Stable Discharge Disposition: Home with Home Health Discharge Activity/Weight Bearing Status: Weight bearing as tolerated Discharge Medications: Medication List START taking these medications acetaminophen 500 mg tablet Commonly known as: TYLENOL EXTRA STRENGTH Take 2 tablets by mouth every 8 hours as needed for pain for up to 7 days. docusate sodium 100 mg capsule Commonly known as: COLACE Take 1 capsule by mouth two times a day. Take colace while taking narcotics to decrease your risk of constipation meloxicam 15 mg tablet Commonly known as: MOBIC Take 1 tablet by mouth once daily for 14 days. naloxone 4 mg/actuation nasal spray Commonly known as: NARCAN Use 1 spray in one nostril as needed for overdose. May repeat every (more content not included)... [facility] 01-01-2025 [facility] Telephone ([facility]) [place] ([id number]) 1945 M Date Time Provider Department 01/01/25 JONATHAN DAVALOS During your visit today, we recorded the following information about you: Jonathan Davalos PSS 01/01/2025 10:36 AM Signed Date/Time: 01/01/2025 10:34 AM Spoke with Patient @ phone #: [phone] - Preferred # for contact: [phone] or [phone] Have you received help from a home care company in the last 60 days? No Are you agreeable to [facility] services? Yes What address will we be seeing you at? [address] [place] [id number] Do you have any upcoming appointments or things we need to schedule around? No Do you have a teachable CG or can you manage your care independently? Yes Who? self AND spouse Have you received the flu shot? No If so, when and where? NA Allergies As of Date: 01/01/2025 Noted Allergy Reaction COCONUT 02/11/2010 11 - Vomiting Comments: Only allergic to shredded coconut, fine with oils. Date Reviewed: 12/31/2024 Reviewed by: Yobani Schafer RN - Fully Assessed Reason for Visit: Home Care [4073] Cmt: Confirmation Call Prescriptions as of 01/02/2025 - acetaminophen (TYLENOL EXTRA STRENGTH) 500 mg tablet Take 2 tablets by mouth every 8 hours as needed for pain for up to 7 days. - pantoprazole DR (PROTONIX) 20 mg tablet Take 1 tablet by mouth once daily for 14 days. - meloxicam (MOBIC) 15 mg tablet Take 1 tablet by mouth once daily for 14 days. - docusate sodium (COLACE) 100 mg capsule Take 1 capsule by mouth two times a day. Take colace while taking narcotics to decrease your risk of constipation - oxyCODONE IR (ROXICODONE) 5 mg immediate release tablet Take 1-2 tablets by mouth every 4 hours as needed for pain for up to 7 days. for pain. - aspirin, enteric coated (ECOTRIN LOW STRENGTH) 81 mg EC tablet Take 1 tablet by mouth two times a day for 28 days. - naloxone 4 mg/actuation nasal spray (NARCAN) Use 1 spray in one nostril as needed for overdose. May repeat every 2 to 3 min in alternating nostrils until medical assistance is available - levothyroxine (SYNTHROID) 112 mcg tablet Take 1 tablet by mouth once daily. - benzonatate (TESSALON PERLE) 100 mg capsule Take 1 capsule by mouth three times a day as needed. - atorvastatin (LIPITOR) 20 mg tablet Take 1 tablet by mouth once daily. - lisinopril (ZESTRIL) 5 mg tablet Take 1 tablet by mouth once daily. - aspirin, enteric coated (ASPIRIN, ENTERIC COATED) 81 mg EC tablet Take 1 tablet by mouth once daily. - metFORMIN ER (GLUCOPHAGE XR) 500 mg 24 hr tablet Take 1 tablet by mouth daily with breakfast. - nitroglycerin sublingual (NITROQUICK) 0.4 mg SL tablet Dissolve 1 tablet under the tongue every 5 minutes as needed for chest pain, up to 3 doses. If no relief, call 911. Facility-Administered Medications as of 01/02/2025 - methylPREDNISolone sod succinate(PF) 40 mg injection (SOLU-Medrol) - dextrose 5% in NaCl 0.45% iv infusion - atorvastatin 20 mg tab(s) (LIPITOR) - levothyroxine 112 mcg tab(s) (SYNTHROID) - aspirin, enteric coated 81 mg tab(s) - NaCl 0.9% iv flush bag - HYDROmorphone 0.4 mg injection (DILAUDID) - oxyCODONE IR 5-10 mg tab(s) (ROXICODONE) - acetaminophen 1,000 mg tab(s) (TYLENOL) - keTORolac 15 mg injection (Toradol) - ondansetron 4 mg tab(s) (ZOFRAN) - ondansetron (PF) 4 mg injection (ZOFRAN) - magnesium hydroxide 400 mg/5 mL 30 mL (MOM) - bisacodyl EC 10 mg tab(s) (DULCOLAX) - melatonin 1 mg tab(s) - aluminum-magnesium hydroxide-simethicone 200-200-20 mg/5 mL 30 mL - ferrous sulfate 325 mg tab(s) - ascorbic acid (vitamin C) 500 mg tab(s) (VITAMIN C) - senna 17.2 mg tab(s) (SENOKOT) - multivitamin-ferrous fumarate-folic acid 1 tablet (CENTRUM) - dextrose 40 % 15 g - glucagon 1 mg injection - dextrose 10% iv bolus - insulin lispro injection (rapid acting) (ADMElog) - insulin lispro injection (rapid acting) (ADMElog) - phenol 1 [place] (CHLORASEPTIC) Problem List As Of Date 01/01/2025 Noted Resolved Hypothyroidism [E03.9] 07/09/2006 Pain in joint, lower leg [M25.569] 01/08/2007 12/19/2016 Status post total bilateral knee replacement [Z*01/14/2007 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 12/19/2016 Herpes zoster without mention of complication [*05/03/2007 12/19/2016 Routine general medical examination [facility]*07/17/2007 06/14/2016 Nodular prostate without urinary obstruction [N*09/19/2007 Other seborrheic keratosis [L82.1] 12/08/2008 12/19/2016 Elevated blood pressure reading without diagnos*06/03/2009 11/19/2019 Chest Pain [R07.9] 07/13/2009 02/21/2010 Other hyperlipidemia [E78.49] 07/13/2009 SUMMARY [V999.95] 02/11/2010 02/21/2010 Hypothyroid [E03.9] 02/12/2010 02/21/2010 NSTEMI (non-ST elevated myocardial infarction) *02/12/2010 12/19/2016 Sinus Bradycardia [R00.1] 02/12/2010 02/21/2010 Flank pain [R10.9] 02/21/2010 12/19/2016 Cor (more content not included)... [facility] THERAPY NTon 01-01-2025 THERAPY NT HNO ID: [id number] Author: ABBY DELUNA CCC-CLIENT BUSINESS MANAGER Service: Speech/Swallow Author Type: Speech Language Pathologist Type: Therapy (PT/OT/Speech/Resp) Filed: 01/01/2025 16:51 Note Text: Speech Therapy MBSS Evaluation SERVICE DATE: 01/01/2025 SERVICE TIME: 1412 to 1441 ROOM: [place] [address] IMPRESSION Patient presents with severe pharyngeal dysphagia, likely acute but without clear etiology at this time. The patient was emergent suctioned during his surgery and he presents now with dysphagia symptoms and voice deficits. This is concerning for traumatic etiology. Would highly recommend inpatient ENT consult for further assessment of voice deficits and dysphagia. Patient does not appear safe to continue an oral diet at this time. Patient appears to be at an increased risk for developing pulmonary complications related to the following factors: reduced mobility, silent aspiration at times. Patient appears to be at an elevated risk for dehydration and/or malnutrition related to impaired swallowing efficiency. Evidence of: Pharyngeal dysphagia An elevated risk for aspiration: Yes Swallow Efficiency: Impaired Speech Rehab Potential: Good RECOMMENDATIONS Diet Recommendations NPO with alternative means of nutrition Patient may have ice chips and small sips of waterfor comfort if cleared by physician under the following conditions: Aggressive oral care prior to ice chips (brush teeth, tongue, roof of mouth, gums, etc) Ice chips given under supervision of RN/PCNA Administer 1 ice chip at a time Nursing Recommendations Allowance for ice chips, Confirm Dentures appropriately placed for all PO, Routine Rigid Oral Hygiene Recommended Consults ENT Response to Therapy Interventions: Good participation in activities Rehabilitation Precautions: Aspiration Precautions, Dysphagia DISCHARGE RECOMMENDATIONS Recommended Discharge Disposition: Unable to determine CURRENT HOSPITAL COURSE 12/31 Patient underwent left hip surgery. He had emesis during surgery that required emergent suctioning. CXR negative. Reason for Speech Therapy Consult: Patient complained of difficulty swallowing. Relevant Past Medical History: CAD, Ramirez's palsy, SAH, HTN HOME ENVIRONMENT / PRIOR FUNCTIONAL LEVEL Patient Lives With: Spouse Prior Swallowing Function/Diet Textures: Regular Consistency, Thin Liquids IDDSI Level 0 SUBJECTIVE Patient was pleasant and participated well in the evaluation. Discussed preliminary results with identification of aspiration of multiple consistencies. THERAPY DIAGNOSIS Dysphagia, pharyngeal phase TREATMENT INTERVENTIONS Modified Barium Swallow Study (27478), Dysphagia Therapy (68576) Skilled Treatment Time (minutes): 29 TRAINING AND EDUCATION PROVIDED IN Dysphagia Management, Results and Recommendations of Session, Modified Barium Swallow Results, Swallowing Strategies THERAPEUTIC SKILLS USED Education on role of discipline / importance of activity, Family / caregiver counseling / training, Verbal cuing OBJECTIVE Current Status Oral Hygiene: Clear, moist oral cavity Dentition: Dentures-Lower Partial, Dentures-Upper Partial Current Feeding Method: Oral Current Diet Textures: Regular Consistency, Thin Liquids IDDSI Level 0 Current Level Of Communication: Verbal Current Management Of Secretions: Able to self-manage Oral Motor Exam: Within Functional Limits SWALLOW ASSESSMENT Position Of Patient During Assessment: Upright In Chair Feeding Method: Patient Self-Fed Previous Swallow Study: Clinical Swallow INSTRUMENTAL SWALLOW ASSESSMENT Instrumental Swallow Assessment Type: Modified Barium Swallow Study Modified Barium Swallow Views: Lateral position, Unable to obtain anterior-posterior position Barium Consistencies Provided: Thin Liquids IDDSI Level 0, Mildly Thick Liquids IDDSI Level 2 ([place] Thick), Pureed Solids IDDSI Level 4, Solid, 13mm Barium Tablet Oral Phase: As Follows Lip Closure: Interlabial escape/no progression to anterior lip Tongue Control During Bolus Hold: Cohesive bolus between tongue to palatal seal Bolus Preparation/Masticatio n: Timely and efficient mastication skills Bolus Transport/Lingual Motion: Delayed initiation of tongue motion for A-P movement of the bolus Oral Residue: Trace residue lining oral structures Initiation Of Pharyngeal Swallow: Bolus head at pit of pyriforms Pharyngeal Phase: As Follows Soft Palate Elevation: No bolus between soft palate/pharyngeal wall Laryngeal Elevation: Partial superior movement of thyroid cartilage and/or partial approximation of arytenoids to epiglottic petiole Anterior Hyoid Excursion: Partial anterior movement Epiglottic Movement: Partial inversion Laryngeal Vestibular Closure/Height of the Swallow: Incomplete - narrow column of air/contrast in laryngeal vestibule Pharyngeal Stripping Wave: Present, however, diminished Pharyngeal Contraction (A/P View Only): Not tested Phar (more content not included)... [facility] THERAPY NT HNO ID: [id number] Author: ABBY DELUNA CCC-CLIENT BUSINESS MANAGER Service: Speech/Swallow Author Type: Speech Language Pathologist Type: Therapy (PT/OT/Speech/Resp) Filed: 01/01/2025 13:20 Note Text: Speech Therapy Clinical Swallow Evaluation SERVICE DATE: 01/01/2025 SERVICE TIME: 1243 to 1301 ROOM: [place] [address] IMPRESSION Patient presents clinically with pharyngeal dysphagia, likely acute but without clear etiology at this time. The patient was emergent suctioned during his surgery and he presents now with dysphagia symptoms and voice deficits. This is concerning for traumatic etiology. If prandial aspiration is occurring, patient appears to be at an increased risk for developing pulmonary complications related to dysphagia due to the following factors: reduced mobility. Instrumental swallow study is warranted to objectively assess swallow anatomy and physiology. Swallow Deficits Identified / Suspected: Pharyngeal dysphagia, Concern for possible esophageal impairment Speech Rehab Potential: Good RECOMMENDATIONS Diet Recommendations Regular Consistency, Thin Liquids IDDSI Level 0 Swallow Strategy Recommendations Sit upright 90 degrees for all PO, Maintain an upright position 20-30 minutes following all oral intake, Rigid Oral Hygiene Nursing Recommendations Confirm Dentures appropriately placed for all PO, Reinforce use of swallowing strategies, Routine Rigid Oral Hygiene Instrumental Swallow Study Recommendations Modified Barium Swallow Study (MBSS) Response to Therapy Interventions: Good participation in activities Rehabilitation Precautions: Aspiration Precautions, Dysphagia DISCHARGE RECOMMENDATIONS Recommended Discharge Disposition: Continued Skilled Speech Therapy CURRENT HOSPITAL COURSE 12/31 Patient underwent left hip surgery. He had emesis during surgery that required emergent suctioning. CXR negative. Reason for Speech Therapy Consult: Patient complained of difficulty swallowing. Relevant Past Medical History: CAD, Ramirez's palsy, SAH, HTN HOME ENVIRONMENT / PRIOR FUNCTIONAL LEVEL Patient Lives With: Spouse Prior Swallowing Function/Diet Textures: Regular Consistency, Thin Liquids IDDSI Level 0 SUBJECTIVE Patient was pleasant and participated well in the evaluation. Patient's spouse Adilia was present for the evaluation and assisted and providing history. Patient endorsed coughing with liquids and globus sensation with solids. He endorsed acute voice changes as well. THERAPY DIAGNOSIS Dysphagia, unspecified TREATMENT INTERVENTIONS Clinical Swallow Evaluation (96405) Skilled Treatment Time (minutes): 18 TRAINING AND EDUCATION PROVIDED IN Dysphagia Management, Results and Recommendations of Session THERAPEUTIC SKILLS USED Education on role of discipline / importance of activity, Family / caregiver counseling / training, Verbal cuing OBJECTIVE Current Status Oral Hygiene: Clear, moist oral cavity, Oral Health Assessment Tool (OHAT) Dentition: Dentures-Upper Partial, Dentures-Lower Partial Current Feeding Method: Oral Current Diet Textures: Regular Consistency, Thin Liquids IDDSI Level 0 Current Level Of Communication: Verbal Current Management Of Secretions: Able to self-manage Oral Motor Exam: Within Functional Limits ORAL HEALTH ASSESSMENT TOOL Lips: 0 Tongue: 0 Gums and Tissues: 0 Saliva: 0 Natural Teeth: 0 Dentures: 0 Oral Cleanliness: 0 Dental Pain: 0 OHAT Total Score: 0 COGNITION Cognitive Status: (Patient stated name and accurately, followed commands appropriately.) SWALLOW ASSESSMENT Position Of Patient During Assessment: Upright In Bed Feeding Method: Patient Self-Fed Consistencies Presented: Thin Liquids IDDSI Level 0, Pureed Solids IDDSI Level 4, Solid Thin Liquids Oral Phase: (WNL) Thin Liquids Pharyngeal Phase: Multiple Swallows, Cough- Immediate Pureed Solids Oral Phase: (WNL) Pureed Solids Pharyngeal Phase: Multiple Swallows Solid Oral Phase: (WNL) Solid Pharyngeal Phase: Multiple Swallows (Patient complained of globus sensation and regurgitation.) Compensatory Strategies Utilized During Assessment: Alternate bites and sips Ty Ty Swallow Protocol: Fail Fail: Coughing episodes Suspected Esophageal Deficits: Yes, concern for regurgitation. GOALS SWALLOWING: Patient / Caregiver will demonstrate knowledge of taught compensatory strategies and dietary consistency recommendations to optimize functional swallow function without overt clinical signs and symptoms of aspiration or dysphagia Patient /Caregiver Goals: Go Home PLAN ST Frequency: 2 Times Per Week Treatment Interventions: Dysphagia Management Plan of Care Developed with: Patient, Significant Other, Nurse, Nurse Practitioner Plan for next visit: Swallowing Strategies, Modified Barium Swallow Results, Dysphagia Management SIGNATURE: Abby Deluna CCC-CLIENT BUSINESS MANAGER PATIENT NAME: Santa Pearl DATE: January 01, 2025 TIME: 1:18 PM [facility] THERAPY NT HNO ID: [id number] Author: JAMAAL BANGURA OT/L Service: Occupational Therapy Author Type: Occupational Therapist Type: Therapy (PT/OT/Speech/Resp) Filed: 01/01/2025 11:10 Note Text: Occupational Therapy Evaluation Summary SERVICE DATE: 01/01/2025 SERVICE TIME: 1036 to 1102 ROOM: [address] 6 Clicks Score: 24 Total Joint Replacement Discharge Readiness: Cleared from Occupational Therapy DISCHARGE RECOMMENDATIONS Home Anticipated Discharge Needs: Physical Assist at Home Physical Assist at Home for: Cleaning, Laundry, Meals, Transportation, Shopping, Safety ASSESSMENT Response to Therapy Interventions: Good Participation in Activities, Requires Additional Time to Complete Activities, Pain PRECAUTIONS Hip Precautions - Posterior Dislocation, Weight Bearing Restrictions Left Lower Extremity Weight Bearing Status: WBAT CURRENT HOSPITAL COURSE 79 y.o male admitted 12/31/24 s/p L THR Relevant Past Medical History: OA, HTN, CAD, s/p stent 2016, DM, sinus beady, hx subarachnoid hemmorrhage, TKR 30+ years ago HOME LIVING Patient Lives With: Spouse Assistance Available: 24-Hour Entry To Home: Stairs, Without Rail, Other: See Comment Number Of Stairs Into Home: 2 (step+platform onto porch) Number Of Stairs To Bed/Bath: 0 Tub/Shower Type: walk-in shower Laundry: family will complete Equipment Owned: Cane, Walker- Wheeled, Elevated Toilet Seat, Shower Chair, ADL Kit, Grab Bars- Shower PRIOR FUNCTIONAL LEVEL Within Functional Limits Ambulated independently without AD. Independent with ADLs. Shares IADLs SUBJECTIVE Patient agreeable to OT THERAPY DIAGNOSIS Decreased activities of daily living (ADL), Reduced mobility-other TREATMENT INTERVENTIONS Evaluation, Self Assisted Management (52820) Timed Code Treatment (minutes): 11 Skilled Treatment Time (minutes): 26 TRAINING AND EDUCATION PROVIDED Activity Adaptation/Coping Machine Operator y Strategies, Assistive Device Use, Adaptive Equipment/DME, Benefits of In-Hospital Mobility, Bed Mobility, Discharge Planning, Expected Functional Level, Functional Mobility Involving ADLs, Lower Extremity Bathing, Lower Extremity Dressing, Positioning, Precautions/Restrictio ns, Role of Occupational Therapy, Standing Balance to Improve [place] with ADLs/Self-Care, Transfer - Bed to Chair, Transfer - Car, Transfer - Sit to Stand, Upper Extremity Bathing, Upper Extremity Dressing THERAPEUTIC SKILLS USED Activity Dosing, Cues for Sequencing/Proper Technique for Activity, Cuing Verbal, Physical Assist, Movement Facilitation, Teach-Back for Education FUNCTIONAL STATUS Activities of Daily Living Assist Level Additional Information Feeding Set Up Grooming Set Up Bathing Upper Body Set Up Bathing Lower Body Stand By Assistance Dressing Upper Body Set Up Dressing Lower Body Stand By Assistance, Additional Information with use of AE Toileting Stand By Assistance Mobility Assist Level Additional Information Bed Mobility Sit to Stand Stand By Assistance Stand to Sit Stand By Assistance Bed to Chair Stand By Assistance Bed To Chair Transfer Type: Stepping Bed To Chair Transfer Equipment: Wheeled Walker Toilet/Commode Shower Functional Mobility Stand By Assistance Functional Mobility Device: Wheeled Walker GOALS Patient will demonstrate progress with self-care, cognitive and/or coping needs identified to allow safe discharge to home with available support and/or physical assistance. Progress Toward Goals: Progressing as expected Rehab Potential: Good PLAN OT Frequency: PRN (As Needed) Treatment Interventions: Education, Self Care/Home Management, Strengthening, Functional Mobility Training SIGNATURE: Jamaal Bangura OT/Shahzad PATIENT NAME: Santa Pearl DATE: January 01, 2025 TIME: 11:09 AM [facility] THERAPY NT HNO ID: [id number] Author: RILEY SHINE, PT, DPT Service: Physical Therapy Author Type: Physical Therapist Type: Therapy (PT/OT/Speech/Resp) Filed: 01/01/2025 10:51 Note Text: Physical Therapy Treatment Summary SERVICE DATE: 01/01/2025 SERVICE TIME: 958 to 1037 ROOM: [id number]- PT 6 Clicks Score: 23 Total Joint Replacement Discharge Readiness: Cleared from Physical Therapy DISCHARGE RECOMMENDATIONS Home PT Recommended Discharge Equipment: No equipment needs anticipated ASSESSMENT Response to Therapy Interventions: Good Participation in Activities, Improved Tolerance for Activity, On-Track to Achieve Discharge Goals, Notable Progression with Functional Activities/Skills, Pain PRECAUTIONS Hip Precautions - Posterior Dislocation, Weight Bearing Restrictions Left Lower Extremity Weight Bearing Status: WBAT CURRENT HOSPITAL COURSE 79 y.o male admitted 12/31/24 s/p L THR Relevant Past Medical History: OA, HTN, CAD, s/p stent 2016, DM, sinus beady, hx subarachnoid hemmorrhage, TKR 30+ years ago HOME LIVING Patient Lives With: Spouse Assistance Available: 24-Hour Entry To Home: Stairs, Without Rail, Other: See Comment Number Of Stairs Into Home: 2 (step+platform onto porch) Number Of Stairs To Bed/Bath: 0 Laundry: family will complete Equipment Owned: Cane, Walker- Wheeled, Elevated Toilet Seat, Shower Chair, ADL Kit PRIOR FUNCTIONAL LEVEL Within Functional Limits Ambulated independently without AD. Independent with ADLs. Shares IADLs SUBJECTIVE Pt motivated for D/C home. Reports throat pain has improved. Continues to have productive cough but much improved from yesterday. THERAPY DIAGNOSIS Reduced mobility-other, Difficulty walking-musculoskeleta l TREATMENT INTERVENTIONS Therapeutic Activity (14361), Gait Training (10531) Timed Code Treatment (minutes): 39 Skilled Treatment Time (minutes): 39 TRAINING AND EDUCATION PROVIDED Advanced Balance Activities, Anatomy and Impact on Deficits, Assistive Device Use, Bed Mobility, Benefits of In-Hospital Mobility, Energy Conservation, Equipment, Expected Functional Level, Exercise Program, Gait Pattern, Reduction of Deviations, Handout Issued, Home Set-up/Modifications, Modalities, Transfers, Role of Physical Therapy, Precautions/Restrictio ns THERAPEUTIC SKILLS USED Activity Dosing, Assessment of Tolerance Including Vitals Response to Activity, Cues for Sequencing/Proper Technique for Activity, Cuing Verbal, Teach-Back for Education, Facilitation of Joint Range of Motion, Family Training FUNCTIONAL STATUS Bed Mobility Supine To Sit: Supervision Scooting: Supervision Transfers Sit To Stand: Supervision Stand To Sit: Supervision Bed to Chair Supervision Bed To Chair Transfer Type: Stepping Bed To Chair Transfer Equipment: Wheeled Walker Gait Supervision, Additional Information progressing to step thru with increased distance Gait Device: Wheeled Walker General Deviations/Observation s: Antalgic gait, Katarzyna decreased, UE weight bearing on assistive device excessive Gait Distance (feet): 150 feet x 2 Gait Deviations Left Lower Extremity: Stance time decreased, Weight bearing decreased Stairs Contact Guard Assistance Stairs Device: Cane, Rail Number of Stairs: 3 Curb Step: Contact Guard Assistance, Additional Information Device: Wheeled Walker x2 trials GOALS Patient will demonstrate understanding of importance of mobility during hospital stay and resolve all functional needs identified., Patient will demonstrate progress with functional mobility to allow safe discharge to home with available support and/or physical assistance. Rehab Potential: Good Progress Toward Goals: Progressing as expected PLAN PT Frequency: Once Daily Treatment Interventions: Education, Self Care / Home Management, Energy Conservation Training, Joint Mobility, Strengthening, Functional Mobility Training, Balance Training, Modalities Plan for Next Visit: Walker Training, Standing Tolerance, Standing Balance, Stair Training, Sit to Stand Transfers, Gait Training, Bed Mobility SIGNATURE: Riley Shine, PT, DPT PATIENT NAME: Santa Pearl DATE: January 01, 2025 TIME: 10:50 AM [facility] XR MOD BARIUM SWALLOW W SPEE Maddie 01-01-2025 XR MOD BARIUM SWALLOW W SPEECH * * *Final Report* * * DATE OF EXAM: Jan 01 2025 3:21PM LUX 5377 - XR MOD BARIUM SWALLOW W SPEECH / PROCEDURE REASON: Dysphagia, unexplained * * * * Physician Interpretation * * * * EXAM: XR MOD BARIUM SWALLOW W SPEECH EXAM DATE: 01/01/2025 3:21 PM CLINICAL HISTORY: Dysphagia, unexplained TECHNIQUE AND RESULT: Total Air Kerma: 42.9 mGy Total Fluoroscopy Time: 7:00 min:sec Fluoroscopy was provided for an oropharyngeal examination performed by Speech Therapy. Please refer to the report by the Speech Pathologist available in [facility]. IMPRESSION: See above Customer Service Correspondence Clerk: MELISAS Transcribe Date/Time: Jan 01 2025 3:44P Dictated by : RO KRISHNAMURTHY DO This examination was interpreted and the report reviewed and electronically signed by: RO KRISHNAMURTHY DO on Jan 01 2025 3:44PM EST [id number] [facility] ALLIED HEALTHon 12-31-2024 ALLIED HEALTH HNO ID: [id number] Author: REMA KNUTSON RT(R) Service: Radiology Author Type: System Admin Type: Allied Health Filed: 12/31/2024 14:03 Note Text: Radiology Service Progress Note PATIENT NAME: Santa Pearl DATE OF SERVICE: December 31, 2024 TIME: 2:02 PM PATIENT IDENTITY VERIFICATION COMPLETED USING TWO (2) IDENTIFIERS: Name and Date of confirmed by patient verbally and Name and Date of confirmed by identification band. FALL SCREENING: Has the patient had 2 falls in the last year or 1 fall with injury or currently using an Ambulatory Assistive Device (Walker, Cane, Wheelchair, Crutches, etc.)? Inpatient: Screened on floor PATIENT GENDER DATA: Assigned male at PATIENT RELEVANT IMPLANT DATA REVIEWED: Not Applicable PATIENT PRESENTS WITH AN IMPLANTABLE OR ATTACHED UNIFORM CAP OPERATOR: No RADIOLOGY DEPARTMENT: General X-ray: Exam(s) Completed: Chest X-Ray PERIPHERAL IV DATA: Not applicable SIGNED BY: RT Karli(R) December 31, 2024 2:02 PM [facility] HNO ID: [id number] Author: MINA PEREZ RT(R) Service: Radiology Author Type: Technologist Type: Allied Health Filed: 12/31/2024 10:32 Note Text: Radiology Service Progress Note PATIENT NAME: Santa Pearl DATE OF SERVICE: December 31, 2024 TIME: 10:31 AM PATIENT IDENTITY VERIFICATION COMPLETED USING TWO (2) IDENTIFIERS: Name and Date of confirmed by patient verbally and Name and Date of confirmed by identification band. FALL SCREENING: Has the patient had 2 falls in the last year or 1 fall with injury or currently using an Ambulatory Assistive Device (Walker, Cane, Wheelchair, Crutches, etc.)? Inpatient: Screened on floor PATIENT GENDER DATA: Assigned male at PATIENT RELEVANT IMPLANT DATA REVIEWED: Not Applicable PATIENT PRESENTS WITH AN IMPLANTABLE OR ATTACHED UNIFORM CAP OPERATOR: No RADIOLOGY DEPARTMENT: General X-ray: Exam(s) Completed: Pelvis X-Ray: Pelvis General AP PERIPHERAL IV DATA: Not applicable SIGNED BY: RT Danie(R) December 31, 2024 10:31 AM [facility] POSTPROC EVALon 025 ANES POSTPROC EVAL HNO ID: [id number] Author: URSULA FIGUEROA MD Service: Anesthesiology Author Type: Anesthesiologist Type: Anesthesia Postprocedure Evaluation Filed: 12/31/2024 12:40 Note Text: POST ANESTHESIA EVALUATION NOTE : 1945 Procedure Summary Date: 12/31/24 Room / Location: OR04 / OR Anesthesia Start: 724 Anesthesia Stop: 924 Procedure: ARTHROPLASTY REPLACE JOINT TOTAL HIP (Left: Hip) Diagnosis: Primary osteoarthritis of left hip (Primary osteoarthritis of left hip [M16.12]) Surgeons: Ravin Hough MD Responsible Provider: Ursula Figueroa MD Anesthesia Type: spinal, MAC ASA Status: 3 Anesthesia Type: spinal, MAC Last Vitals Vitals Value Taken Time BP 109/70 12/31/24 1103 Temp 36.4 ?C (97.5 ?F) 12/31/24 1103 HR SpO2 58 12/31/24 1039 Resp 17 12/31/24 1103 SpO2 99 % 12/31/24 1103 Vitals shown include unfiled device data. Post Anesthesia Patient Status Patient Evaluation: PACU. PACU/ICU Patient Condition: stable. Anticipated Disposition: phase 2 then home. Neurological Status: aware and responsive. Pulmonary Status: breathing comfortably on room air Airway Control: returned to baseline unsupported. Cardiovascular Status: stable. Pain Management: clinically adequate - multimodal analgesia pain management approach Postoperative Hydration: acceptable. Intraoperative Events: no significant anesthesia events Post Operative Nausea/Vomiting Status: no significant post operative nausea or vomiting Recommendation: continue current plan of care and further care per PACU/ICU/floor team. Other Remarks: The patient had an episode of emesis in the OR while in the lateral position. The airway was suctioned and there were no indications of any aspiration. In the PACU post op the patient was able to maintain an O2 sat of 98% on room air and his lungs were CTA bilaterally.. Anesthesia Observations No Documentation SIGNATURE: Ursula Figueroa MD PATIENT NAME: Santa Pearl DATE: December 31, 2024 TIME: 12:36 PM CSN: [id number] [facility] ANES PRE-OPon 12-31-2024 ANES PRE-OP HNO ID: [id number] Author: URSULA FIGUEROA MD Service: Anesthesiology Author Type: Resident Type: Anesthesia Preprocedure Evaluation Filed: 12/31/2024 07:39 Note Text: Attestation signed by Ursula Figueroa MD at 12/31/2024 7:39 AM I saw and evaluated the patient. Discussed with the resident and agree with resident's findings and plan as documented in the resident's note. ANESTHESIOLOGY DAY OF SURGERY NOTE : 1945 Procedure Information Date/Time: 12/31/24 0730 Procedure: ARTHROPLASTY REPLACE JOINT TOTAL HIP (Left: Hip) Location: [place] [address] / [facility] Surgeons: Ravin Hough MD Estimated body mass index is 27.12 kg/m? as calculated from the following: Height as of 12/10/24: 177.8 cm (5' 10). Weight as of 12/10/24: 85.7 kg (189 lb). Most recent hematocrit and potassium results: Hematocrit 38.9 12/10/2024 Potassium 4.4 12/10/2024 Relevant Problems CARDIO (+) 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 coronary artery of [place] heart without angina pectoris (+) Essential hypertension (+) Presence of stent in LAD coronary artery (+) Sinus bradycardia ENDO (+) Controlled type 2 diabetes mellitus without complication, without long-term current use of insulin (HCC) (+) Hypothyroidism NEURO-PSYCH (+) History of subarachnoid hemorrhage Cardiovascular (+) S/P right coronary artery (RCA) stent placement 03/12/2023 Stress Test: CONCLUSIONS: 1. SPECT Perfusion Study: Normal. 2. There is no scintigraphic evidence for inducible ischemia. 3. No evidence of scarred myocardium. 4. Left ventricle is normal in size. The left ventricle systolic function is normal. 5. Right ventricle is normal in size. The right ventricle systolic function is normal. 6. This is a low risk scan. Gated Stress FBP Gated Rest FBP LVEF % 69 68 I - PHYSICAL EVALUATION AIRWAY Patient intubated: No. Tracheostomy tube not present Mallampati: III. TM distance: >3 FB. Neck ROM: full ROM without neurological symptoms. Mouth opening: adequate. Short neck: no. Thick neck: no DENTAL Dental findings: teeth intact and missing tooth/teeth. Dentures, upper: partial. Dentures, lower: partial. II - ANESTHESIA PLAN ASA Score: 3 Anesthetic Plan: spinal and MAC The patient is not a current smoker. NPO Status: adequate Beta Angel Luis Monitoring Plan Monitoring plan: standard ASA. Post Procedure Analgesic Plan Postoperative analgesic plan: peripheral nerve block. Informed Consent Anesthetic risks, benefits, alternatives, personnel and consent discussed: yes. Patient / Responsible Libertarian agrees to proceed: yes Patient / Surrogate agrees to blood products: Yes Potential Anesthesia issues that may suggest increased risk of complications or contraindication to planned procedure: none. Vitals Value Taken Time BP 151/66 12/31/24 0634 Pulse 45 12/31/24 0634 Resp 16 12/31/24 0634 Temp 37.3 ?C (99.1 ?F) 12/31/24 0634 SpO2 97 % 12/31/24 0634 Facility-Administered Medications as of 12/31/2024 Medication Dose Route Frequency [COMPLETED] celecoxib 200 mg cap(s) (CeleBREX) 200 mg ORAL ONCE ceFAZolin iv piggyback 2 g in D5W (iso-osmotic) 100 mL (ANCEF) 2 g INTRAVENOUS ONCE tranexamic acid (CYKLOKAPRON) in NaCl 0.7% 1,000 mg 100 mL 1,000 mg INTRAVENOUS ONCE [COMPLETED] tranexamic acid (CYKLOKAPRON) in NaCl 0.7% 1,000 mg 100 mL 1,000 mg INTRAVENOUS ONCE [COMPLETED] acetaminophen 1,000 mg tab(s) (TYLENOL) 1,000 mg ORAL ONCE lidocaine (PF) 10 mg/mL (1 %) 1-2 mg injection (XYLOCAINE) 0.1-0.2 mL INTRADERMAL PRN NaCl 0.9% iv flush bag 20 mL INTRAVENOUS PRN Outpatient Medications as of 12/31/2024 Medication Sig atorvastatin (LIPITOR) 20 mg tablet Take 1 tablet by mouth once daily. lisinopril (ZESTRIL) 5 mg tablet Take 1 tablet by mouth once daily. aspirin, enteric coated (ASPIRIN, ENTERIC COATED) 81 mg EC tablet Take 1 tablet by mouth once daily. metFORMIN ER (GLUCOPHAGE XR) 500 mg 24 hr tablet Take 1 tablet by mouth daily with breakfast. acetaminophen (TYLENOL EXTRA STRENGTH) 500 mg tablet Take 2 tablets by mouth every 8 hours as needed for pain for up to [address] (PROTONIX) 20 mg tablet Take 1 tablet by mouth once daily for 14 days. meloxicam (MOBIC) 15 mg tablet Take 1 tablet by mouth once daily for 14 days. docusate sodium (COLACE) 100 mg capsule Take 1 capsule by mouth two times a day. Take colace while taking narcotics to decrease your risk of constipation oxyCODONE IR (ROXICODONE) 5 mg immediate release tablet Take 1-2 tablets by mouth every 4 hours as needed for pain for up to 7 days. for pain. aspirin, enteric coated (ECOTRIN LOW STRENGTH) 81 mg EC tablet Take 1 tablet by mouth two times a day for 28 days. naloxone 4 mg/actuation nasal spray (NARCAN) Use 1 spray in one nostril as n (more content not included)... [facility] BRIEF OP NOTon 12-31-2024 BRIEF OP NOT HNO ID: [id number] Author: RAVIN HOUGH MD Service: Orthopaedic Surgery Author Type: Physician Type: Brief Op Note Filed: 12/31/2024 09:11 Note Text: BRIEF OPERATIVE / PROCEDURE NOTE LOG ID: [id number] SURGERY/PROCEDURE DATE: 12/31/2024 INCISION/PROCEDURE START TIME: 8:14 AM INCISION CLOSE/PROCEDURE END TIME: SURGEON(S)/PROCEDURALI ST(S) AND MASTIC MAN(S): Surgeons and Role: * Ravin Hough MD - Primary Physician Net Developer Contract: Son Graham PA-C; Luis Marino PA-C SURGERY/PROCEDURE(S): Left TERI ANESTHESIA: Spinal FINDINGS: OA ESTIMATED BLOOD LOSS: 150 mls SPECIMENS: None COMPLICATIONS: None CLOSURE TECHNIQUE: Primary PRE-OP/PRE-PROCEDURE DIAGNOSIS: OA left hip POST-OP/POST-PROCEDURE DIAGNOSIS: Same as Preop Patient was accompanied to the next level of care by a licensed practitioner from the surgical team pending completion of this brief op note (or operative note) SIGNATURE: Ravin Hough MD PATIENT NAME: Santa Pearl DATE: December 31, 2024 TIME: 9:10 AM [facility] CONSULT PROGon 12-31-2024 CONSULT PROG HNO ID: [id number] Author: KEITH SOTO MD Service: General Internal Medicine Author Type: Physician Type: Consult Progress Note Filed: 12/31/2024 15:27 Note Text: Internal medicine INITIAL CONSULT NOTE SERVICE DATE: 12/31/2024 SERVICE TIME: 12:30 PM REASON FOR CONSULT: Medical management REQUESTING PHYSICIAN: Dr. Hough PRIMARY CARE PHYSICIAN: Josue Aguilera MD Subjective Mr. Pearl is a 79 year old male who presents for sp left total hip arthroplasty. Patient in bed, no complaints of pain, did have emesis during surgery, patient has suction for mucous. Patient has with a cough at times. Educated on use of IS every hour, monitor lung sounds, ambulation. Chest xray today. 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 HYPERLIPIDEMIA NEC/NOS Hyperplasia of prostate Personal history of colonic polyps S/P angioplasty with stent 02/21/2010 x2 Thyroid nodule 08/05/2012 Unspecified hemorrhoids without mention of complication Unspecified hypothyroidism PAST SURGICAL HISTORY Procedure Laterality Date ARTHRP KNE CONDYLEANDPLATU MEDIALANDLAT COMPARTMENTS 1990 Knee replacement, total LEFT ARTHRP KNE CONDYLEANDPLATU MEDIALANDLAT COMPARTMENTS 2006 PARTIAL KNEE REPLACEMENT RIGHT CC CORONARY STENT 02/2010 x2 COLONOSCOPY AND POLYPECTOMY 01/14/02 repeat 2011 FNA WITH IMAGING 08/21/12 U/S FNA right thyroid lesion FAMILY HISTORY Problem Relation Age of Onset Cancer Mother LYMPHATIC Heart Father IA Emphysema Father smoker/welder shielded metal arc Cancer Maternal Grandmother Social History Tobacco Use Smoking status: Former Current packs/day: 0.00 Average packs/day: 1 pack/day for 25.0 years (25.0 ttl pk-yrs) Types: Cigarettes Start date: 11/24/1964 Quit date: 11/24/1989 Years since quittin.1 Smokeless tobacco: Never Vaping Use Vaping status: Never Used Substance Use Topics Alcohol use: Yes Alcohol/week: 1.0 standard drink of alcohol Types: 1 Cans of Beer (12oz) per week Comment: occasional Drug use: No levothyroxine (SYNTHROID) 112 mcg tablet, Take 1 tablet by mouth once daily., Disp: 90 tablet, Rfl: 3, 12/31/2024 at 4:30 AM atorvastatin (LIPITOR) 20 mg tablet, Take 1 tablet by mouth once daily., Disp: 90 tablet, Rfl: 3, 12/30/2024 lisinopril (ZESTRIL) 5 mg tablet, Take 1 tablet by mouth once daily., Disp: 90 tablet, Rfl: 3, 12/31/2024 at 4:30 AM aspirin, enteric coated (ASPIRIN, ENTERIC COATED) 81 mg EC tablet, Take 1 tablet by mouth once daily., Disp: 30 tablet, Rfl: 11, 12/31/2024 at 4:30 AM metFORMIN ER (GLUCOPHAGE XR) 500 mg 24 hr tablet, Take 1 tablet by mouth daily with breakfast., Disp: 90 tablet, Rfl: 3, 12/30/2024 Noon benzonatate (TESSALON PERLE) 100 mg capsule, Take 1 capsule by mouth three times a day as needed., Disp: 30 capsule, Rfl: 0 nitroglycerin sublingual (NITROQUICK) 0.4 mg SL tablet, Dissolve 1 tablet under the tongue every 5 minutes as needed for chest pain, up to 3 doses. If no relief, call 911., Disp: 3 Bottle of 25, Rfl: 1 Current Facility-Administered Medications Medication Dose Route Frequency atorvastatin 20 mg tab(s) (LIPITOR) 20 mg ORAL DAILY levothyroxine 112 mcg tab(s) (SYNTHROID) 112 mcg ORAL DAILY ceFAZolin iv piggyback 2 g in D5W (iso-osmotic) 100 mL (ANCEF) 2 g INTRAVENOUS q 8 HR [START ON 01/01/2025] aspirin, enteric coated 81 mg tab(s) 81 mg ORAL BID NaCl 0.9% iv flush bag 20 mL INTRAVENOUS PRN lactated ringers iv infusion 75 mL/hr INTRAVENOUS CONTINUOUS HYDROmorphone 0.4 mg injection (DILAUDID) 0.4 mg INTRAVENOUS q 3 H PRN oxyCODONE IR 5-10 mg tab(s) (ROXICODONE) 5-10 mg ORAL q 3 H PRN acetaminophen 1,000 mg tab(s) (TYLENOL) 1,000 mg ORAL q 8 H keTORolac 15 mg injection (Toradol) 15 mg INTRAVENOUS q 8 H ondansetron 4 mg tab(s) (ZOFRAN) 4 mg ORAL q 6 H PRN Or ondansetron (PF) 4 mg injection (ZOFRAN) 4 mg INTRAVENOUS q 6 H PRN magnesium hydroxide 400 mg/5 mL 30 mL (MOM) 30 mL ORAL DAILY PRN [START ON 01/02/2025] bisacodyl EC 10 mg tab(s) (DULCOLAX) 10 mg ORAL DAILY melatonin 1 mg tab(s) 1 mg ORAL DAILY (8 PM) aluminum-magnesium hydroxide-simethicone 200-200-20 mg/5 mL 30 mL 30 mL ORAL q 2 H PRN [START ON 01/01/2025] ferrous sulfate 325 mg tab(s) 325 mg ORAL DAILY wLUNCH ascorbic acid (vitamin C) 500 mg tab(s) (VITAMIN C) 500 mg ORAL BID w MEALS senna 17.2 mg tab(s) (SENOKOT) 17.2 mg ORAL AT BEDTIME multivitamin-ferrous fumarate-folic acid 1 tablet (CENTRUM) 1 tablet ORAL DAILY potassium chloride ER 20-40 mEq tab(s) (KLOR-CON) 20-40 mEq ORAL PRN Or potassium chloride iv piggyback 20 mEq/100 mL 20 mEq INTRAVENOUS PRN dextrose 40 % 15 g 15 g ORAL PRN Or glucagon 1 mg injection 1 mg INTRAMUSCULAR PRN Or dextrose 10% iv bolus 12.5 g INTRAVENOUS PRN (more content not included)... [facility] OPERATIVE NOon 12-31-2024 OPERATIVE NO HNO ID: [id number] Author: RAVIN HOUGH MD Service: Orthopaedic Surgery Author Type: Physician Type: Operative Report Filed: 12/31/2024 09:53 Note Text: OPERATIVE/PROCEDURE REPORT LOG ID: [id number] Surgery/Procedure Date: 12/31/2024 Incision/Procedure Start Time: 8:14 AM Incision Close/Procedure End Time: 9:11 AM Surgeon(s)/Procedurali st(s) and Net Developer Contract(s): Surgeons and Role: * Ravin Hough MD - Primary Asst Luis Marino and Son Corbett Anesthesia: Spinal Preop Diagnosis: Pre-Op Diagnosis Codes: * Primary osteoarthritis of left hip [M16.12] Postop Diagnosis: Pre-Op Diagnosis Codes: * Primary osteoarthritis of left hip [M16.12] Procedure(s): Procedure(s) (LRB): ARTHROPLASTY REPLACE JOINT TOTAL HIP (Left) Implants: Implant Name Type Inv. Item Serial No. Home Insurance Agent Lot No. LRB No. Used Action PIN STEINMANN 3/16IN STAINLESS STEEL 9IN FIXATION TROCAR POINT ONE END - [id number] Pin PIN STEINMANN 3/16IN STAINLESS STEEL 9IN FIXATION TROCAR POINT ONE END BRASSELER [id number] Left 1 Non-Implant SHELL TRIDENT II 56MM F TRITANIUM ACETABULAR 5 SCREW HOLE CLUSTER STERILE - [id number] Joint SHELL TRIDENT II 56MM F TRITANIUM ACETABULAR 5 SCREW HOLE CLUSTER STERILE [employer] [id number] Left 1 Implanted INSERT ACETABULAR 36MM 0D F HIP X3 TRIDENT - [id number] Joint - Hip INSERT ACETABULAR 36MM 0D F HIP X3 TRIDENT KRYSTAL [id number] Left 1 Implanted STEM FEMORAL 105MM SIZE 5 HIGH OFFSET INSIGNIA COLLARED - [id number] Joint - Hip STEM FEMORAL 105MM SIZE 5 HIGH OFFSET INSIGNIA COLLARED KRYSTAL [id number] Left 1 Implanted HEAD V40 36MM 0MM OFFSET TAPER BIOLOX DELTA FEMORAL HIP - [id number] Joint HEAD V40 36MM 0MM OFFSET TAPER BIOLOX DELTA FEMORAL HIP [employer] [id number] Left 1 Implanted Problem List: ACTIVE PROBLEM LIST Hypothyroidism Status Post Total Bilateral Knee Replacement 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 Other Hyperlipidemia Dysmetabolic Syndrome Thyroid Nodule 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 Coronary Artery S/P Right Coronary Artery (Rca) Stent Placement Coronary Artery Disease Involving Jamul Coronary Artery of [place] Heart Without Angina Pectoris Sinus Bradycardia Essential Hypertension Controlled Type 2 Diabetes Mellitus Without Complication, Without Long-Term Current Use of Insulin (Hcc) History of Subarachnoid Hemorrhage Findings: Complete eburnation of femoral head and periacetabular osteophytes Specimens: Femoral head OPERATIVE INDICATIONS: This patient was seen in the office and found to have intractable left hip pain with imaging showing significant joint space narrowing. They exhausted non-operative management with a combination of meds, activity modification, and home exercise program. These were no longer providing the relief they desired. The risks, benefits and alternatives to that were discussed at length with the patient. A shared decision was made. Complications discussed included but were not limited to leg length discrepancy, dislocation, fracture, infection, blood clots, and medical complications. PROCEDURE: The patient was taken to the operating room and after satisfactory spinal anesthesia she was placed in the lateral position with thelefthip superior. Herleft hip and lower extremity were prepped and draped in the usual sterile fashion. A 6-inch incision was made over the trochanter, curving posteriorly. Dissection was carried down to the tensor fascia ruchi, which was incised in line with the incision. A Charnley retractor was placed in the wound. Sciatic nerve was identified and protected. The piriformis was incised off the back of the trochanter and again was tagged. The capsule was opened posteriorly and the hip was dislocated. The femoral neck was cut 1 fingerbreadth proximal to the lesser trochanter and retractors were placed around the acetabulum. The capsulectomy was completed. Reaming was begun with a 38 millimeter reamer and carried up to a 56 mm reamer, and a 56 mm trident II cup was impacted in 45 degrees of abduction and 20 degrees of anteversion. The cup was stable and a liner was impacted, 36 millimeters. Attention was then turned to the canal, which was opened with a box osteotome and a T-handled reamer. Broaching was begun with a size 0 and carried up to a size 5 insignia stem. Trial reduction was carried out with a 36, +0 mm head. The hip was stable as it was taken through a full range of motion. X-ray was obtained intraoperatively to show satisfactory positioning of the components. The final size 36 head was impacted on the Locke taper. Again, the hip was reduced. The wound was copiously irrigated with antibiotic solution. Closure was begun. The piriformis was repaired through drill holes in the back of the trochanter. The tensor fascia was repaired with 0 suture. Subcutaneous tissues were closed with 2-0 suture. Skin was closed with subcuticular 3-0 undyed suture. Steri- Stri (more content not included)... [facility] THERAPY NTon 12-31-2024 THERAPY NT HNO ID: [id number] Author: RILEY SHINE, PT, DPT Service: Physical Therapy Author Type: Physical Therapist Type: Therapy (PT/OT/Speech/Resp) Filed: 12/31/2024 14:07 Note Text: Physical Therapy Evaluation Summary SERVICE DATE: 12/31/2024 SERVICE TIME: 1325 to 1352 ROOM: [place] [address] PT 6 Clicks Score: 22 Total Joint Replacement Discharge Readiness: Pending Physical Therapy Clearance DISCHARGE RECOMMENDATIONS Home PT Recommended Discharge Equipment: No equipment needs anticipated ASSESSMENT Response to Therapy Interventions: Good Participation in Activities, Improved Tolerance for Activity, On-Track to Achieve Discharge Goals, Notable Progression with Functional Activities/Skills, Pain Pt pleasant and cooperative. and son present throughout session. No D/C today d/t pt c/o throat pain and new onset of chest congestion with moist productive cough. Pt able to perform bed mobility and transfer to bedside chair with SBA and use of walker. Educated on post op precautions, exercises and progression of mobility. THR handout issued. Will follow up tomorrow for gait and stair training. Anticipate D/C home tomorrow if medically cleared with Home PT and family assist. PRECAUTIONS Hip Precautions - Posterior Dislocation, Weight Bearing Restrictions Left Lower Extremity Weight Bearing Status: WBAT CURRENT HOSPITAL COURSE 79 y.o male admitted 12/31/24 s/p L THR Relevant Past Medical History: OA, HTN, CAD, s/p stent 2016, DM, sinus beady, hx subarachnoid hemmorrhage, TKR 30+ years ago HOME LIVING Patient Lives With: Spouse Assistance Available: 24-Hour Entry To Home: Stairs, Without Rail Number Of Stairs Into Home: 2 Number Of Stairs To Bed/Bath: 0 Laundry: family will complete Equipment Owned: Cane, Walker- Wheeled, Elevated Toilet Seat, Shower Chair, ADL Kit PRIOR FUNCTIONAL LEVEL Within Functional Limits Ambulated independently without AD. Independent with ADLs. Shares IADLs SUBJECTIVE Pt agreeable to participate. and son bedside. My throat is hurting more by the minute Pt with moist productive cough with suction bedside. Nurse aware and radiology arrived during session for chest Xray THERAPY DIAGNOSIS Reduced mobility-other, Difficulty walking-musculoskeleta l TREATMENT INTERVENTIONS Evaluation, Therapeutic Activity (00167) Timed Code Treatment (minutes): 12 Skilled Treatment Time (minutes): 27 TRAINING AND EDUCATION PROVIDED Advanced Balance Activities, Anatomy and Impact on Deficits, Assistive Device Use, Bed Mobility, Benefits of In-Hospital Mobility, Energy Conservation, Equipment, Expected Functional Level, Exercise Program, Gait Pattern, Reduction of Deviations, Handout Issued, Home Set-up/Modifications, Modalities, Transfers, Role of Physical Therapy, Precautions/Restrictio ns THERAPEUTIC SKILLS USED Activity Dosing, Assessment of Tolerance Including Vitals Response to Activity, Cues for Sequencing/Proper Technique for Activity, Cuing Verbal, Teach-Back for Education, Facilitation of Joint Range of Motion, Family Training FUNCTIONAL STATUS Bed Mobility Supine To Sit: Stand By Assistance Scooting: Stand By Assistance Transfers Sit To Stand: Stand By Assistance Stand To Sit: Stand By Assistance Bed to Chair Stand By Assistance Bed To Chair Transfer Type: Stepping Bed To Chair Transfer Equipment: Wheeled Walker Gait Stairs GOALS Patient will demonstrate understanding of importance of mobility during hospital stay and resolve all functional needs identified., Patient will demonstrate progress with functional mobility to allow safe discharge to home with available support and/or physical assistance. Rehab Potential: Good Progress Toward Goals: Progressing as expected PLAN PT Frequency: Once Daily Treatment Interventions: Education, Self Care / Home Management, Energy Conservation Training, Joint Mobility, Strengthening, Functional Mobility Training, Balance Training, Modalities Plan for Next Visit: Walker Training, Standing Tolerance, Standing Balance, Stair Training, Sit to Stand Transfers, Gait Training, Bed Mobility SIGNATURE: Riley Shine, PT, DPT PATIENT NAME: Santa Pearl DATE: December 31, 2024 TIME: 2:04 PM [facility] XR CHEST 1V FRONTAL PORTon 0 12-31-2024 XR CHEST 1V FRONTAL PORT * * *Final Repo rt* * * DATE OF EXAM: Dec 31 2024 2:04PM LUX [id number] - XR CHEST 1V FRONTAL PORT / PROCEDURE REASON: Cough * * * * Physician Interpretation * * * * EXAMINATION: CHEST RADIOGRAPH (PORTABLE SINGLE VIEW AP) Exam Date/Time: 12/31/2024 2:04 PM CLINICAL HISTORY: Cough, Other, aspiration MQ: XCPR_5 Comparison: 02/12/2010 RESULT: Lines, tubes, and devices: None. Lungs and pleura: No acute consolidation.. Benign calcified granulomas in the left lung. No pleural effusion. No pneumothorax. Cardiomediastinal silhouette: Normal cardiomediastinal silhouette. Other: . IMPRESSION: No acute radiographic abnormality. Customer Service Correspondence Clerk: MELISSA Transcribe Date/Time: Dec 31 2024 2:10P Dictated by : Barbara NUNN MD This examination was interpreted and the report reviewed and electronically signed by: Barbara NUNN MD on Dec 31 2024 2:28PM EST [id number] [facility] XR PELVIS 1V APon 12-31-2024 XR PELVIS 1V AP * * *Final Report* * * DATE OF EXAM: Dec 31 2024 10:25AM LUX 5239 - XR PELVIS 1V AP / PROCEDURE REASON: Post-operative / post-procedure assessment, asymptomatic * * * * Physician Interpretation * * * * History: Postoperative imaging FINDINGS/ IMPRESSION: Postoperative AP view of the left hip demonstrates newly placed total left hip arthroplasty, hardware intact and alignment satisfactory. Overlying soft tissue air is consistent with the recent surgery. Please see detailed operative report. Customer Service Correspondence Clerk: [facility] Transcribe Date/Time: Dec 31 2024 10:37A Dictated by : KOKI RICKETTS MD This examination was interpreted and the report reviewed and electronically signed by: KOKI RICKETTS MD on Dec 31 2024 10:38AM EST [id number] [facility] XR PELVIS 1V AP * * *Final Report* * * DATE OF EXAM: Dec 31 2024 8:40AM DAREK 5239 - XR PELVIS 1V AP / PROCEDURE REASON: Primary osteoarthritis of left hip * * * * Physician Interpretation * * * * EXAMINATION: XR PELVIS 1V AP CLINICAL INFORMATION: 79 years old Male with Primary osteoarthritis of left hip COMPARISON: Radiographs 09/02/2024 RESULT: Single frontal intraoperative image of the pelvis demonstrates LEFT total hip arthroplasty in progress. IMPRESSION: Intraoperative examination for surgical planning and documentation. Customer Service Correspondence Clerk: [facility] Transcribe Date/Time: Dec 31 2024 8:46A Dictated by : RO KRISHNAMURTHY DO This examination was interpreted and the report reviewed and electronically signed by: RO KRISHNAMURTHY DO on Dec 31 2024 8:46AM EST [id number] [facility] Telephone ([facility]) RYANNESANTA Zulema ([id number]) 1945 M Date Time Provider Department 12/29/24 SHANTA ROBERSON During your visit today, we recorded the following information about you: Shanta Roberson LSW 12/29/2024 3:27 PM Signed Same Day Discharge Pre-operative Assessment Living Arrangement: Home Who able to assist you at home once you discharge? Spouse Services/Needs: Do you currently use any equipment at home for your medical condition or to help you get around? Elevated toilet seat Walker Active Services/Needs: None [place] Of Choice: Level of Care Discussed: Home Care Total Joint Arthroplasty (TJA) Surgical Risk Procedure: Primary total Hip replacement Date assessed: risk assessed on 10/07/2024 10/07/2024 TJA Risk Procedure Primary total Hip replacement Estimated Length of Stay (# of days) 2 Chance of NOT Returning Home at Discharge 19.8 30 Day Chance of Readmission 2.44 Transportation: Do you have reliable transportation to and from surgery/appointments?: Yes Who will provide discharge transportation: Contact information for patient's ride: see chart Will your ride be available for 1200 discharge time? Yes Per pt, they live at home with their spouse where they have a walker and elevated toilet seat at home. Referral will be made to [facility] agencies per pts request for home PT upon d/c. Per pt he does not have preference at this time. Per pt their spouse will transport home upon d/c. SW will remain available. Allergies As of Date: 12/29/2024 Noted Allergy Reaction COCONUT 02/11/2010 11 - Vomiting Comments: Only allergic to shredded coconut, fine with oils. Date Reviewed: 12/10/2024 Reviewed by: Molly Roy APRN.OB/GYN DOCTOR - Fully Assessed Reason for Visit: Assessment [673] Prescriptions as of 12/29/2024 - levothyroxine (SYNTHROID) 112 mcg tablet Take 1 tablet by mouth once daily. - benzonatate (TESSALON PERLE) 100 mg capsule Take 1 capsule by mouth three times a day as needed. - atorvastatin (LIPITOR) 20 mg tablet Take 1 tablet by mouth once daily. - lisinopril (ZESTRIL) 5 mg tablet Take 1 tablet by mouth once daily. - aspirin, enteric coated (ASPIRIN, ENTERIC COATED) 81 mg EC tablet Take 1 tablet by mouth once daily. - metFORMIN ER (GLUCOPHAGE XR) 500 mg 24 hr tablet Take 1 tablet by mouth daily with breakfast. - nitroglycerin sublingual (NITROQUICK) 0.4 mg SL tablet Dissolve 1 tablet under the tongue every 5 minutes as needed for chest pain, up to 3 doses. If no relief, call 911. 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 12/19/2016 Herpes zoster without mention of complication [*05/03/2007 12/19/2016 Routine general medical examination at [facility]*07/17/2007 06/14/2016 Nodular prostate without urinary obstruction [N*09/19/2007 Other seborrheic keratosis [L82.1] 12/08/2008 12/19/2016 Elevated blood pressure reading without diagnos*06/03/2009 11/19/2019 Chest Pain [R07.9] 07/13/2009 02/21/2010 Other hyperlipidemia [E78.49] 07/13/2009 SUMMARY [V999.95] 02/11/2010 02/21/2010 Hypothyroid [E03.9] 02/12/2010 02/21/2010 NSTEMI (non-ST elevated myocardial infarction) *02/12/2010 12/19/2016 Sinus Bradycardia [R00.1] 02/12/2010 02/21/2010 Flank pain [R10.9] 02/21/2010 12/19/2016 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 uribe*02/21/2010 03/13/2022 S/P angioplasty with stent 02/21/2010 12/19/2016 Dysmetabolic syndrome [E88.810] 07/29/2012 Thyroid nodule [E04.1] 08/05/2012 Presence of stent in LAD coronary artery [Z95.5]06/22/2016 S/P right coronary artery (RCA) stent placement*06/22/2016 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 uribe*06/22/2016 Sinus bradycardia [R00.1] 06/22/2017 Essential hypertension [I10] 11/19/2019 History of hypothyroidism [Z86.39] 09/14/2022 10/03/2023 Subarachnoid bleed (HCC) [I60.9] 11/18/2023 11/28/2024 Diagnosed: 11/26/2023 Controlled type 2 diabetes mellitus without com*05/29/2024 History of subarachnoid hemorrhage [Z86.79] 11/28/2024 Encounter Status:Closed by SHANTA ROBERSON on 12/29/24 [facility] ALBUMIN/CREATININE RATIO, UR INEon 12-10-2024 Albumin DL <= 20 mg/L (U) [Mass/Vol] mg/dL Normal [facility] Comment on above: Order Comment: Speci men Type: URINE SPECIMENOrdering Facility: [facility] Address: [address] [place] [address] Performed By: #### U ACR ####[facility] LABCLIA [id number] [place] [address] [place] Albumin/Creatinine (U) [Mass ratio] <9 Normal <30 [facility] Comment on above: Order Comment: Speci men Type: URINE SPECIMENOrdering Facility: [facility] Address: [address] [place] [address] Result Comment: Adul t Male and Female Nephrotic Criteria: <30 mg/g is considered normal to mildly increased 30-300 mg/g is considered moderately increased >300 mg/g is considered severely increased KDIGO. (2013). KDIGO 2012 Clinical Practice Guideline for the Evaluation and Management of Chronic Kidney Disease. Official Journal of the International Society of Nephrology, 3(1), 1-150. Performed By: #### U ACR ####[facility] LABCLIA [id number] [place] [address] [place] Creatinine (U) [Mass/Vol] 135.2 mg/dL Normal 20.0-300.0 [facility] Comment on above: Order Comment: Speci men Type: URINE SPECIMENOrdering Facility: [facility] Address: [address] [place] [address] Performed By: #### U ACR ####[facility] LABCLIA [id number] [facility]OSPITALTeo AVENUEDESK [id number] [place] [address] [place] CBC W Auto Differential pane l (Bld)on 12-10-2024 Basophils (Bld) [#/Vol] 10*3/uL Normal <0.11 [facility] Comment on above: Order Comment: Speci men Type: BLOOD SPECIMENOrdering Facility: [facility] Address: [address] [place] [address] Performed By: #### 5 7021-8 ####[facility] [id number] [place] [address] [place] Basophils/100 WBC (Bld) 0.3 % Normal [facility] Comment on above: Order Comment: Speci men Type: BLOOD SPECIMENOrdering Facility: [facility] Address: [address] [place] [address] Performed By: #### 5 7021-8 ####[facility] [id number] [place] [address] [place] Differential cell count method Nom (Bld) Auto Normal [facility] Comment on above: Order Comment: Speci men Type: BLOOD SPECIMENOrdering Facility: [facility] Address: [address] [place] [address] Performed By: #### 5 7021-8 ####[facility] [id number] [place] [address] [place] Eosinophils (Bld) [#/Vol] 0.15 10*3/uL Normal <0.46 [facility] Comment on above: Order Comment: Speci men Type: BLOOD SPECIMENOrdering Facility: [facility] Address: [address] [place], [place] [address] Performed By: #### 5 7021-8 ####[facility] MILLWNCLIA [id number] [place] [address] [place] Eosinophils/100 WBC (Bld) 2.3 % Normal [facility] Comment on above: Order Comment: Speci men Type: BLOOD SPECIMENOrdering Facility: [facility] Address: [address] [place] [address] Performed By: #### 5 7021-8 ####[facility] ERJOSSELYNLIA [id number] [place] [address] [place] Erythrocyte distribution width (RBC) [Ratio] 12.1 % Normal 11.5-15.0 [facility] Comment on above: Order Comment: Speci men Type: BLOOD SPECIMENOrdering Facility: [facility] Address: [address] [place] [address] Performed By: #### 5 7021-8 ####[facility] OHIOLIA [id number] [place] [address] [place] Hematocrit (Bld) [Volume fraction] 38.9 % Low 39.0-51.0 [facility] Comment on above: Order Comment: Speci men Type: BLOOD SPECIMENOrdering Facility: [facility] Address: [address] [place] [address] Performed By: #### 5 7021-8 ####[facility] OHIOLIA [id number] [place] [address] [place] Hemoglobin (Bld) [Mass/Vol] 13.0 g/dL Normal 13.0-17.0 [facility] Comment on above: Order Comment: Speci men Type: BLOOD SPECIMENOrdering Facility: [facility] Address: [address] [place] [address] Performed By: #### 5 7021-8 ####[facility] OHIOLIA [id number] [place] [address] [place] Immature granulocytes (Bld) [#/Vol] 0.08 10*3/uL Normal <0.10 [facility] Comment on above: Order Comment: Speci men Type: BLOOD SPECIMENOrdering Facility: [facility] Address: [address] [place] [address] Performed By: #### 5 7021-8 ####[facility]ENTERWWVLIA [id number] [place] [address] [place] Immature granulocytes/100 WBC (Bld) 1.2 % Normal [facility] Comment on above: Order Comment: Speci men Type: BLOOD SPECIMENOrdering Facility: [facility] Address: [address] [place] [address] Performed By: #### 5 7021-8 ####[facility] ERNCTIMPANOGOS REGIONAL [facility] [id number] [place] [address] [place] Lymphocytes (Bld) [#/Vol] 1.48 10*3/uL Normal 1.00-4.00 [facility] Comment on above: Order Comment: Speci men Type: BLOOD SPECIMENOrdering Facility: [facility] Address: [address] [place] [address] Performed By: #### 5 7021-8 ####[facility] OHIOLIA [id number] [place] [address] [place] Lymphocytes/100 WBC (Bld) 22.3 % Normal [facility] Comment on above: Order Comment: Speci men Type: BLOOD SPECIMENOrdering Facility: [facility] Address: [address] [place] [address] Performed By: #### 5 7021-8 ####[facility] ERNCLIA [id number] [place] [address] [place] MCH (RBC) [Entitic mass] 31.4 pg Normal 26.0-34.0 [facility] Comment on above: Order Comment: Speci men Type: BLOOD SPECIMENOrdering Facility: [facility] Address: [address] [place] [address] Performed By: #### 5 7021-8 ####[facility] SIVABraedenNCPAUL [id number] [place] [address] [place] MCHC (RBC) [Mass/Vol] 33.4 g/dL Normal 30.5-36.0 [facility] Comment on above: Order Comment: Speci men Type: BLOOD SPECIMENOrdering Facility: [facility] Address: [address] [place] [address] Performed By: #### 5 7021-8 ####[facility] ERNCPAUL [id number] [place] [address] [place] MCV (RBC) [Entitic vol] 94.0 fL Normal 80.0-100.0 [facility] Comment on above: Order Comment: Speci men Type: BLOOD SPECIMENOrdering Facility: [facility] Address: [address] [place] [address] Performed By: #### 5 7021-8 ####[facility] ERCANDY [id number] [place] [address] [place] Monocytes (Bld) [#/Vol] 0.89 10*3/uL High <0.87 [facility] Comment on above: Order Comment: Speci men Type: BLOOD SPECIMENOrdering Facility: [facility] Address: [address] [place] [address] Performed By: #### 5 7021-8 ####[facility] ERNCLIA [id number] [place] [address] [place] Monocytes/100 WBC (Bld) 13.4 % Normal [facility] Comment on above: Order Comment: Speci men Type: BLOOD SPECIMENOrdering Facility: [facility] Address: [address] [place] [address] Performed By: #### 5 7021-8 ####[facility] MILLWNCLIA [id number] [place] [address] [place] Neutrophils (Bld) [#/Vol] 4.02 10*3/uL Normal 1.45-7.50 [facility] Comment on above: Order Comment: Speci men Type: BLOOD SPECIMENOrdering Facility: [facility] Address: [address] [place] [address] Performed By: #### 5 7021-8 ####[facility] OHIOLIA [id number] [place] [address] [place] Neutrophils/100 WBC (Bld) 60.5 % Normal [facility] Comment on above: Order Comment: Speci men Type: BLOOD SPECIMENOrdering Facility: [facility] Address: [address] [place] [address] Performed By: #### 5 7021-8 ####[facility] OHIOLIA [id number] [place] [address] [place] Nucleated RBC (Bld) [#/Vol] 10*3/uL Normal <0.01 [facility] Comment on above: Order Comment: Speci men Type: BLOOD SPECIMENOrdering Facility: [facility] Address: [address] [place] [address] Performed By: #### 5 7021-8 ####[facility] O[facility]OLIA [id number] [place] [address] [place] Nucleated RBC/100 WBC (Bld) [Ratio] 0.0 /100 WBC Normal [facility] Comment on above: Order Comment: Speci men Type: BLOOD SPECIMENOrdering Facility: [facility] Address: [address] [place] [address] Performed By: #### 5 7021-8 ####[facility] [id number] [place] [address] [place] Platelet mean volume (Bld) [Entitic vol] 10.5 fL Normal 9.0-12.7 [facility] Comment on above: Order Comment: Speci men Type: BLOOD SPECIMENOrdering Facility: [facility] Address: [address] [place] [address] Performed By: #### 5 7021-8 ####[facility] ERNCPAUL [id number] [place] [address] [place] Platelets (Bld) [#/Vol] 285 10*3/uL Normal 150-400 [facility] Comment on above: Order Comment: Speci men Type: BLOOD SPECIMENOrdering Facility: [facility] Address: [address] [place] [address] Performed By: #### 5 7021-8 ####[facility] ERNCA [id number] [place] [address] [place] RBC (Bld) [#/Vol] 4.14 10*6/uL Low 4.20-6.00 [facility] Comment on above: Order Comment: Speci men Type: BLOOD SPECIMENOrdering Facility: [facility] Address: [address] [place] [address] Performed By: #### 5 7021-8 ####[facility] ERNCLIA [id number] [place] [address] [place] WBC (Bld) [#/Vol] 6.64 10*3/uL Normal 3.70-11.00 [facility] Comment on above: Order Comment: Speci men Type: BLOOD SPECIMENOrdering Facility: [facility] Address: [address] [place] [address] Performed By: #### 5 7021-8 ####[facility] ERNCLIA [id number] [place] [address] [place] Comprehensive metabolic 2000 panelon 12-10-2024 Albumin [Mass/Vol] 4.5 g/dL Normal 3.9-4.9 [facility] Comment on above: Order Comment: Speci men Type: BLOOD SPECIMENOrdering Facility: [facility] Address: [address] [place] [address] Performed By: #### 1 9123-9, 87500-4 ####[facility] CHARITO SIVAKITA [id number] [place] [address] [place] ALP [Catalytic activity/Vol] 111 U/L Normal 38-113 [facility] Comment on above: Order Comment: Speci men Type: BLOOD SPECIMENOrdering Facility: [facility] Address: [address] [place] [address] Performed By: #### 1 9123-9, 85244-3 ####[facility] ERNCA [id number] [place] [address] [place] ALT [Catalytic activity/Vol] 32 U/L Normal 10-54 [facility] Comment on above: Order Comment: Speci men Type: BLOOD SPECIMENOrdering Facility: [facility] Address: [address] [place] [address] Performed By: #### 1 9123-9, 07427-1 ####[facility] ERCANDY [id number] [place] [address] [place] Anion gap [Moles/Vol] 10 mmol/L Normal 8-15 [facility] Comment on above: Order Comment: Speci men Type: BLOOD SPECIMENOrdering Facility: [facility] Address: [address] [place] [address] Performed By: #### 1 9123-9, 29696-8 ####[facility] ERNCLIA [id number] [place] [address] [place] AST [Catalytic activity/Vol] 21 U/L Normal 14-40 [facility] Comment on above: Order Comment: Speci men Type: BLOOD SPECIMENOrdering Facility: [facility] Address: [address] [place], [place] [address] Performed By: #### 1 9123-9, 49424-3 ####[facility] CHARITO SIVAKANDI [id number] [place] [address] [place] Bilirubin [Mass/Vol] 0.6 mg/dL Normal 0.2-1.3 [facility] Comment on above: Order Comment: Speci men Type: BLOOD SPECIMENOrdering Facility: [facility] Address: [address] [place], [place] [address] Performed By: #### 1 9123-9, 79659-2 ####[facility] PETE [id number] [place] [address] [place] Calcium [Mass/Vol] 9.7 mg/dL Normal 8.5-10.2 [facility] Comment on above: Order Comment: Speci men Type: BLOOD SPECIMENOrdering Facility: [facility] Address: [address] [place], [place] [address] Performed By: #### 1 9123-9, 90548-7 ####[facility] HOSPITALFELECIA GERMANCANDY [id number] [place] [address] [place] Chloride [Moles/Vol] 100 mmol/L Normal 98-107 [facility] Comment on above: Order Comment: Speci men Type: BLOOD SPECIMENOrdering Facility: [facility] Address: [address] [place] [address] Performed By: #### 1 9123-9, 82752-3 ####[facility]ENTERREAL [id number] [place] [address] [place] CO2 [Moles/Vol] 27 mmol/L Normal 22-30 [facility] Comment on above: Order Comment: Speci men Type: BLOOD SPECIMENOrdering Facility: [facility] Address: [address] [place] [address] Performed By: #### 1 9123-9, 35713-9 ####[facility] SIVABREEZY POINTNCA [id number] [place] [address] [place] Creatinine [Mass/Vol] 0.74 mg/dL Normal 0.73-1.22 [facility] Comment on above: Order Comment: Rose Mary naylor Type: BLOOD SPECIMENOrdering Facility: [facility] Address: [address] [place] [address] Performed By: #### 1 9123-9, 80583-8 ####[facility] ERNCLI [id number] [place] [address] [place] Creatinine and Glomerular filtration rate.predicted panel (S/P/Bld) 92 mL/min/1.73m??? Normal >=60 [facility] Comment on above: Order Comment: Rose Mary naylor Type: BLOOD SPECIMENOrdering Facility: [facility] Address: [address] [place] [address] Result Comment: Coco mated Glomerular Filtration Rate (eGFR) is calculated using the 2020 CKD-EPI creatinine equation. This equation utilizes serum creatinine, sex, and age as parameters. The creatinine assay has traceable calibration to isotope dilution-mass spectrometry. Refer to KDIGO guidelines for clinical interpretation. In patients with unstable renal function, e.g. those with acute kidney injury, the eGFR may not accurately reflect actual GFR. Performed By: #### 1 9123-9, 10074-2 ####[facility] OHIOLIA [id number] [place] [address] [place] Glucose [Mass/Vol] 137 mg/dL High 74-99 [facility] Comment on above: Order Comment: Rose Mary naylor Type: BLOOD SPECIMENOrdering Facility: [facility] Address: [address] [place] [address] Result Comment: The [place] Diabetes Association (ADA) provides guidance for cutoff values for fasting glucose and random glucose. The ADA defines fasting as no caloric intake for at least 8 hours. Fasting plasma glucose results between 100 to 125 mg/dL indicate increased risk for diabetes (prediabetes). Fasting plasma glucose results greater than or equal to 126 mg/dL meet the criteria for diagnosis of diabetes. In the absence of unequivocal hyperglycemia, results should be confirmed by repeat testing. In a patient with classic symptoms of hyperglycemia or hyperglycemic crisis, random plasma glucose results greater than or equal to 200 mg/dL meet the criteria for diagnosis of diabetes. Reference: Standards of Medical Care in Diabetes 2016, [place] [employer] Association. Diabetes Care. 2016.39(Suppl 1). Performed By: #### 1 9123-9, 94152-4 ####[facility] MILLTOWNCLIA [id number] [place] [address] [place] Potassium [Moles/Vol] 4.4 mmol/L Normal 3.7-5.1 [facility] Comment on above: Order Comment: Speci men Type: BLOOD SPECIMENOrdering Facility: [facility] Address: [address] [place] [address] Performed By: #### 1 9123-9, ####[facility]ENTERWNCLIA [id number] [place] [address] [place] Protein [Mass/Vol] 7.3 g/dL Normal 6.3-8.0 [facility] Comment on above: Order Comment: Speci men Type: BLOOD SPECIMENOrdering Facility: [facility] Address: [address] [place] [address] Performed By: #### 1 9123-9, ####[facility] CENTERTOWNCLIA [id number] [place] [address] [place] Sodium [Moles/Vol] 137 mmol/L Normal 136-144 [facility] Comment on above: Order Comment: Speci men Type: BLOOD SPECIMENOrdering Facility: [facility] Address: [address] [place] [address] Performed By: #### 1 9123-9, ####[facility]PITALNCTIMPANOGOS [facility] [id number] [place] [address] [place] Urea nitrogen [Mass/Vol] 15 mg/dL Normal 9-24 [facility] Comment on above: Order Comment: Speci men Type: BLOOD SPECIMENOrdering Facility: [facility] Address: [address] [place] [address] Performed By: #### 1 9123-9, 68522-3 ####[facility] [id number] [place] [address] [place] LLE46ns 12-10-2024 ECG01 Ventricular Rate : 5 4 BPM Atrial Rate : 54 BPM P-R Interval : 212 ms QRS Duration : 88 ms Q-T Interval : 426 ms QTC Calculation(Bazett) : 403 ms Calculated P [place] : 12 degrees Calculated R [place] : 17 degrees Calculated T [place] : 65 degrees SINUS BRADYCARDIA WITH 1ST DEGREE AV BLOCK OTHERWISE NORMAL ECG Confirmed by MD SUMMERS QARAB ([id number]) on 12/11/2024 9:47:24 AM NAME : SANTA PEARL PID : [id number] : 1945 Gender : Male Race : ORD : Procedure Date : Dec 10 2024 12:07:33 Edit Date : Dec 11 2024 09:47:24 Diagnosis: SINUS BRADYCARDIA WITH 1ST DEGREE AV BLOCK OTHERWISE NORMAL ECG Confirmed by MD SUMMERS QARAB ([id number]) on 12/11/2024 9:47:24 AM Test Reason : Location : [address] [place] [address] Overread By : MD SUMMERS QARAB Edited By : MD SUMMERS QARAB Referred By : RAVIN HOUGH Acquired by : Jami noel [facility] HISTORY PHYSICALon HISTORY PHYSICAL HNO ID: [id number] Author: MOLLY ROY APRN.CNP Service: ? Author Type: Nurse Practitioner Type: H&P Filed: 12/12/2024 14:43 Note Text: [facility] HISTORY AND PHYSICAL EXAMINATION SERVICE DATE: 12/10/2024 SERVICE TIME: 12:31 PM PRIMARY CARE PHYSICIAN: Josue Aguilear MD Assessment Patient has the following medical conditions which may affect deepa-operative course: 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 coronary artery of [place] heart without angina pectoris Assessment: s/p stent, following [facility] cardiology and PCP, c/w statin, ASA, and BB. Denies CP, palpitations, sob, new or worsening cardiac symptoms. Pt last cardiac testing 03/2023 with normal stress test, LVEF 69% and EKG today sinus sebastian (HR 54) with 1st degree AV block (no change from previous EKG scanned into epic on 01/09/2023) Essential hypertension Assessment: controlled on rx Last 14 BP Last 14 Encounter BP Readings: Date: BP: 12/10/2024 118/82 11/28/2024 124/74 09/02/2024 120/68 06/02/2024 120/60 05/28/2024 130/70 11/26/2023 134/68 10/03/2023 122/82 03/14/2023 100/64 01/08/2023 142/80 09/14/2022 138/70 06/26/2022 124/64 03/13/2022 128/64 09/12/2021 132/64 08/08/2021 144/62 Other hyperlipidemia Assessment: c/w statin Sinus bradycardia Assessment: chronic, asymptomatic, following cardiology Controlled type 2 diabetes mellitus without complication, without long-term current use of insulin (HCC) Assessment: controlled on oral agent Hemoglobin A1C (%) Date Value 05/28/2024 6.6 09/12/2021 6.1 Hypothyroidism Assessment: stable on rx TSH Date Value Ref Range Status 05/28/2024 2.040 0.270 - 4.200 mIU/L Final Thyroid nodule Assessment: evaluated by endo, denies compressive symptoms, hx benign FNA History of subarachnoid hemorrhage Assessment: hx 11/2023 Status post total bilateral knee replacement Assessment: hx, bilateral Dysmetabolic syndrome Assessment: controlled on oral agent, new A1c pending Hemoglobin A1C (%) Date Value 05/28/2024 6.6 09/12/2021 6.1 Nodular prostate without urinary obstruction Assessment: hx remote urology evaluation, normal flow, denies any current tx Echols Activity Status Index: METS: Climb a flight of stairs or walk up a hill (5.50 METs) DASI Score: 5.5 Patient denies any chest pain or undue shortness of breath with the above physical activity. Clinical Frailty Scale: 3. Well, with treated comorbid disease STOP-Bang Score: Has or is being treated for high blood pressure Patient over 50 years old Male patient Denies snoring loudly Denies feeling tired, fatigued, or sleepy during the daytime Has not been observed to stop breathing or choking/gasping during sleep BMI less than or equal to 35 kg/m2 Does not have a large neck STOP-Bang Score: 3 [id number] Score: Age: >=75 Sex: male CHF history: No Hypertension history: Yes Stroke/TIA/thromboembo lism history: No Vascular disease history: Yes Diabetes history: Yes [id number] Score: 5 ARISCAT Score: Age: 51-80 Preoperative SpO2: >=96% Respiratory infection in the last month: No Preoperative anemia: No Surgical incision: peripheral Duration of surgery: 2-3 hrs Emergency procedure: No ARISCAT Score: 19 ANESTHESIA FINDINGS: Intubation History: No history of difficult intubation Significant Anesthesia Considerations: none Airway History: No history of difficult airway I - PHYSICAL EVALUATION AIRWAY Patient intubated: No. Tracheostomy tube not present Mallampati: III. TM distance: >3 FB. Neck ROM: full ROM without neurological symptoms. Mouth opening: adequate. Short neck: no. Thick neck: no Ruiz present: yes Lip Bite Test: I Microretrognathia/Micr onagthia/Recessed Chin: No DENTAL Dental findings: teeth intact. Dentures, upper: partial. Dentures, lower: partial. II - ANESTHESIA PLAN Anesthetic Plan: other Beta Angel Luis Monitoring Plan Post Procedure Analgesic Plan Prepared for Surgery: optimally prepared for surgery. Labs and EKG-reviewed, okay to proceed-JL CONSULTS: Patient does not require consults for optimization at this time Planned Anesthetic: other anesthesia choice The Following Tests/Procedures Have Been Initiated: Orders Placed This Encounter >HGB A1c (Today or soon) Standing Status: Future Number of Occurrences: 1 Standing Expiration Date: 03/11/2025 >CBC + AUTO DIFF Standing Status: Future Number of Occurrences: 1 Standing Expiration Date: 03/11/2025 >CMP Standing Status: Future Number of Occurrences: 1 Standing Expiration Date: 03/11/2025 Type and Screen, 30 day Standing Status: Future Number of Occurrences: 1 Standing Expiration Date: 03/11/2025 Scheduling Instructions: A 30-day Type and Screen test has been ordered for you. This should be scheduled to be collected no earlier than 29 days before your schedu (more content not included)... Normal [facility] HbA1c (Bld)on 12-10-2024 Average glucose Estimated from glycated hemoglobin (Bld) [Mass/Vol] 143 mg/dL Normal [facility] Comment on above: Order Comment: Rose Mary naylor Type: BLOOD SPECIMENOrdering Facility: [facility] Address: [address] [place] [address] Result Comment: eAG: (Estimated average glucose) is a calculated value from HgbA1c and is wholesale representative of the average blood glucose level in the last 2-3 month period. Performed By: #### 5 5454-3 ####[facility] LABCLIA [id number] [place] [address] [place] HbA1c (Bld) [Mass fraction] 6.6 % High 4.3-5.6 [facility] Comment on above: Order Comment: Rose Mary naylor Type: BLOOD SPECIMENOrdering Facility: [facility] Address: [address] [place] [address] Result Comment: Amer ican Diabetes Association guidelines indicate that patients with HgbA1c in the range 5.7-6.4% are at increased risk for development of diabetes, and intervention by lifestyle modification may be beneficial. HgbA1c greater or equal to 6.5% is considered diagnostic of diabetes. Performed By: #### 5 5454-3 ####[facility]CLIA [id number] [place] [address] [place] Lipid 1996 panelon Cholesterol [Mass/Vol] 106 mg/dL Normal <200 [facility] Comment on above: Order Comment: Rose Mary naylor Type: BLOOD SPECIMENOrdering Facility: [facility] Address: [address] [place] [address] Result Comment: <200 mg/dL, Desirable 200-239 mg/dL, Borderline high >239 mg/dL, High Performed By: #### 2 4331-1 ####[facility] LABCLIA [id number] [address] OF [facility] [id number] [place] [address] [place]#### 3016-3 ####[facility]CLIA [id number] [place] [address] [place] Cholesterol in HDL [Mass/Vol] 42 mg/dL Normal >39 [facility] Comment on above: Order Comment: Speci men Type: BLOOD SPECIMENOrdering Facility: [facility] Address: [address] [place] [address] Result Comment: 40-5 9 mg/dL, Acceptable >59 mg/dL, High: Negative risk factor for coronary heart disease <40 mg/dL, Low: Positive risk factor for coronary heart disease Performed By: #### 2 4331-1 ####[facility] LABCLIA [id number] [place] [address] [place] [facility] [id number] [place] [address] [place]#### 3016-3 ####[facility] LABCLIA [id number] [place] [address] [place] Cholesterol in LDL [Mass/Vol] 49 mg/dL Normal <100 [facility] Comment on above: Order Comment: Speci men Type: BLOOD SPECIMENOrdering Facility: [facility] Address: [address] [place] [address] Result Comment: <100 mg/dL, Optimal 100-129 mg/dL, Near optimal/above optimal 130-159 mg/dL, Borderline high 160-189 mg/dL, High >189 mg/dL, Very high Secondary prevention optimal LDL Cholesterol levels are recommended to be < 70 mg/dL Performed By: #### 2 4331-1 ####[facility] LABCLIA [id number] [address] [id number] [place] [address] [place]#### 3016-3 ####[facility]CLIA [id number] [place] [address] [place] Cholesterol in LDL/Cholesterol in HDL [Mass ratio] 1.17 {ratio} Normal <2.54 [facility] Comment on above: Order Comment: Speci men Type: BLOOD SPECIMENOrdering Facility: [facility] Address: [address] [place] [address] Result Comment: Jose Juan santana: 1. National Cholesterol Education Program ATP III Guideline At-A-Glance Quick Desk Reference: National Heart, Lung, and Blood Centuria. National Institutes of Health. 2001: NIH Publication No. 01-3305. 2. An International Atherosclerosis Society position paper: global recommendations for the management of dyslipidemia: executive summary, Atherosclerosis. 2014: 232(2):410-413. Performed By: #### 2 4331-1 ####[facility] LABCLIA [id number] [address] [id number] [place] [address] [place]#### 3016-3 ####[facility] LABCLIA [id number] [place] [address] [place] Cholesterol in VLDL [Mass/Vol] 15 mg/dL Normal <30 [facility] Comment on above: Order Comment: Speci men Type: BLOOD SPECIMENOrdering Facility: [facility] Address: [address] [place] [address] Performed By: #### 2 4331-1 ####[facility]CLIA [id number] [address] [id number] [place] [address] [place]#### 3016-3 ####[facility]CLIA [id number] [place] [address] [place] Cholesterol non HDL [Mass/Vol] 64 mg/dL Normal <130 [facility] Comment on above: Order Comment: Speci men Type: BLOOD SPECIMENOrdering Facility: [facility] Address: [address] [place] [address] Result Comment: <130 mg/dL, Optimal 130-159 mg/dL, Near optimal/above optimal 160-189 mg/dL, Borderline high 190-219 mg/dL, High >219 mg/dL, Very high Secondary prevention optimal non HDL Cholesterol levels are recommended to be <100 mg/dL Performed By: #### 2 4331-1 ####[facility] LABIA [id number] [address] [id number] [place] [address] [place]#### 3016-3 ####[facility] LABIA [id number] [place] [address] [place] Cholesterol.total/Choles terol in HDL [Mass ratio] 2.52 {ratio} Normal <5.10 [facility] Comment on above: Order Comment: Speci men Type: BLOOD SPECIMENOrdering Facility: [facility] Address: [address] [place] [address] Performed By: #### 2 4331-1 ####[facility] LABCLIA [id number] [address] [id number] [place] [address] [place]#### 3016-3 ####[facility] LABCLIA [id number] [address] OF [place] FASTING TIME 12 hrs Normal [facility] Comment on above: Order Comment: Speci men Type: BLOOD SPECIMENOrdering Facility: [facility] Address: [address] [place] [address] Performed By: #### 2 4331-1 ####[facility] LABCLIA [id number] [address] [id number] [place] [address] [place]#### 3016-3 ####[facility] LABCLIA [id number] [place] [address] [place] Triglyceride [Mass/Vol] 77 mg/dL Normal <150 [facility] Comment on above: Order Comment: Speci men Type: BLOOD SPECIMENOrdering Facility: [facility] Address: [address] [place] [address] Result Comment: <150 mg/dL, Normal 150-199 mg/dL, Borderline high 200-499 mg/dL, High >499 mg/dL, Very high Performed By: #### 2 4331-1 ####[facility] LABCLIA [id number] [place] [address] [place] [facility] [id number] [place] [address] [place]#### 3016-3 ####[facility] LABCLIA [id number] [place] [address] [place] Magnesium SerPl-ncon 12-10 Magnesium [Mass/Vol] 2.2 mg/dL Normal 1.7-2.3 [facility] Comment on above: Order Comment: Speci men Type: BLOOD SPECIMENOrdering Facility: [facility] Address: [address] [place] [address] Performed By: #### 1 9123-9, 16195-2 ####[facility] [id number] [place] [address] [place] TSH SerPl-aCncon 12-10-2024 TSH Qn 0.932 m[IU]/L Normal 0.270-4.200 [facility] Comment on above: Order Comment: Speci men Type: BLOOD SPECIMENOrdering Facility: [facility] Address: [address] [place] [address] Performed By: #### 2 4331-1 ####[facility] LABCLIA [id number] [address] [id number] [address] [place]#### 3016-3 ####[facility] LABCLIA [id number] [address] OF [facility] TYPE AND SCREEN,30 DAYon ABO O Normal [facility] Comment on above: Order Comment: Speci men Type: BLOOD SPECIMEN [facility] Address: [address] [place] [address] Performed By: #### T SCR30 #### [facility] CLIA [id number] [address] [place] [address] [place] Rh Nom (Bld) Positive Normal [facility] Comment on above: Order Comment: Speci men Type: BLOOD SPECIMEN [facility] Address: [address] [place] [address] Performed By: #### T SCR30 #### [facility] CLIA [id number] [address] [place] [address] [place] CNPJackie 11-29-2024 CNPN Telephone (FAMPWS) [place] ([id number]) 1945 M Date Time Provider Department 11/29/24 JOSUE AGUILERA During your visit today, we recorded the following information about you: Josue Aguilera MD 11/29/2024 8:04 AM Signed Let him know he has influenza A. It is viral and antibiotics will not help. He is too far along to consider antivirals. Fluids and rest. Call if symptoms worsen at all or if not better in one to two weeks Alis Levin MA 11/29/2024 8:32 AM Signed Patient informed via . VM verified. Advised patient to call back with any questions or concerns. Patient did view result via my chart. Alis Levin MA Allergies As of Date: 11/29/2024 Noted Allergy Reaction COCONUT 02/11/2010 11 - Vomiting Comments: Only allergic to shredded coconut, fine with oils. Date Reviewed: 11/28/2024 Reviewed by: Alis Levin MA - Fully Assessed Reason for Visit: Results [95] Cmt: influenza Prescriptions as of 11/29/2024 - benzonatate (TESSALON PERLE) 100 mg capsule Take 1 capsule by mouth three times a day as needed. - atorvastatin (LIPITOR) 20 mg tablet Take 1 tablet by mouth once daily. - lisinopril (ZESTRIL) 5 mg tablet Take 1 tablet by mouth once daily. - aspirin, enteric coated (ASPIRIN, ENTERIC COATED) 81 mg EC tablet Take 1 tablet by mouth once daily. - levothyroxine (SYNTHROID) 112 mcg tablet Take 1 tablet by mouth once daily. - metFORMIN ER (GLUCOPHAGE XR) 500 mg 24 hr tablet Take 1 tablet by mouth daily with breakfast. - nitroglycerin sublingual (NITROQUICK) 0.4 mg SL tablet Dissolve 1 tablet under the tongue every 5 minutes as needed for chest pain, up to 3 doses. If no relief, call 911. 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 12/19/2016 Herpes zoster without mention of complication [*05/03/2007 12/19/2016 Routine general medical examination at [facility]*07/17/2007 06/14/2016 Nodular prostate without urinary obstruction [N*09/19/2007 Other seborrheic keratosis [L82.1] 12/08/2008 12/19/2016 Elevated blood pressure reading without diagnos*06/03/2009 11/19/2019 Chest Pain [R07.9] 07/13/2009 02/21/2010 Other hyperlipidemia [E78.49] 07/13/2009 SUMMARY [V999.95] 02/11/2010 02/21/2010 Hypothyroid [E03.9] 02/12/2010 02/21/2010 NSTEMI (non-ST elevated myocardial infarction) *02/12/2010 12/19/2016 Sinus Bradycardia [R00.1] 02/12/2010 02/21/2010 Flank pain [R10.9] 02/21/2010 12/19/2016 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 uribe*02/21/2010 03/13/2022 S/P angioplasty with stent 02/21/2010 12/19/2016 Dysmetabolic syndrome [E88.810] 07/29/2012 Thyroid nodule [E04.1] 08/05/2012 Presence of stent in LAD coronary artery [Z95.5]06/22/2016 S/P right coronary artery (RCA) stent placement*06/22/2016 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 uribe*06/22/2016 Sinus bradycardia [R00.1] 06/22/2017 Essential hypertension [I10] 11/19/2019 History of hypothyroidism [Z86.39] 09/14/2022 10/03/2023 Subarachnoid bleed (HCC) [I60.9] 11/18/2023 11/28/2024 Diagnosed: 11/26/2023 Controlled type 2 diabetes mellitus without com*05/29/2024 History of subarachnoid hemorrhage [Z86.79] 11/28/2024 Encounter Status:Closed by ALIS LEVIN on 11/29/24 Normal [facility] CNOVon 11-28-2024 CNOV Office Visit (FAMPWS ) [place] ([id number]) 1945 Date Time Provider Department 11/28/24 10:20 AM JOSUE AGUILERAPWS During your visit today, we recorded the following information about you: Pulse Blood pressure Weight Height 68/minute 124/74 86 kg 1.778 m Josue Aguilera MD 11/28/2024 12:31 PM Signed Patient presents with: 6 Month Exam HPI: Patient presents today for office visit for routine 6 month follow up. HLD: No myalgias. Does not follow a strict diet. Does not exercise. HTN: Does not monitor his BP at home. Denies chest pain and shortness of breath. Denies headaches and dizziness. Denies palpitations and syncope. No edema. THYROID: No energy, hair or skin changes No weight change Due for labs Scheduled for total left hip replacement on 12/31/[address] Hough. Has a uri around [place]. Now sick again. Started again four days ago Coughing. Keeping him up at night. No fever. Some loss of appetite. No shortness of breath. No gi issues. No sore throat or ear pain. MEDICATIONS: Current Outpatient Medications Medication Sig atorvastatin (LIPITOR) 20 mg tablet Take 1 tablet by mouth once daily. lisinopril (ZESTRIL) 5 mg tablet Take 1 tablet by mouth once daily. aspirin, enteric coated (ASPIRIN, ENTERIC COATED) 81 mg EC tablet Take 1 tablet by mouth once daily. levothyroxine (SYNTHROID) 112 mcg tablet Take 1 tablet by mouth once daily. metFORMIN ER (GLUCOPHAGE XR) 500 mg 24 hr tablet Take 1 tablet by mouth daily with breakfast. nitroglycerin sublingual (NITROQUICK) 0.4 mg SL tablet Dissolve 1 tablet under the tongue every 5 minutes as needed for chest pain, up to 3 doses. If no relief, call 911. No current facility-administered medications for this visit. ALLERGIES: ALLERGIES Allergen Reactions Coconut Vomiting Only allergic to shredded coconut, fine with oils. 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 HYPERLIPIDEMIA NEC/NOS Hyperplasia of prostate Personal history of colonic polyps S/P angioplasty with stent 02/21/2010 x2 Thyroid nodule 08/05/2012 Unspecified hemorrhoids without mention of complication Unspecified hypothyroidism PAST SURGICAL HISTORY Procedure Laterality Date ARTHRP KNE CONDYLEANDPLATU MEDIALANDLAT COMPARTMENTS 1990 Knee replacement, total LEFT ARTHRP KNE CONDYLEANDPLATU MEDIALANDLAT COMPARTMENTS 2006 PARTIAL KNEE REPLACEMENT RIGHT CC CORONARY STENT 02/2010 x2 COLONOSCOPY AND POLYPECTOMY 01/14/02 repeat 2011 FNA WITH IMAGING 08/21/12 U/S FNA right thyroid lesion FAMILY HISTORY Problem Relation Age of Onset Cancer Mother LYMPHATIC Heart Father IA Emphysema Father smoker/welder shielded metal arc Cancer Maternal Grandmother Social History Tobacco Use Smoking status: Former Current packs/day: 0.00 Average packs/day: 1 pack/day for 25.0 years (25.0 ttl pk-yrs) Types: Cigarettes Start date: 11/24/1964 Quit date: 11/24/1989 Years since quittin.0 Smokeless tobacco: Never Vaping Use Vaping status: Never Used Substance Use Topics Alcohol use: Yes Alcohol/week: 1.0 standard drink of alcohol Types: 1 Cans of Beer (12oz) per week Drug use: No Reviewed current medications, allergies, past medical history, surgical history, family history and social history today. REVIEW OF SYSTEMS All other reviewed and negative other than HPI. HEALTH MAINTENANCE: Reviewed health maintenance issues today and recommended the following in detail. Urine Albumin:Creatinine Ratio Never done Dilated Retinal Exam -recommended. Diabetic Foot Exam Never done RSV Vaccine(1 - 1-dose 75+ series) Never done Influenza Vaccine(1) due on 07/13/2024 Covid-19 Vaccine(2023- season) due on 07/28/2024 LDL Cholesterol due on 10/02/2024 Colorectal Cancer Screening due on 10/04/2024 Advance Directive Discussion-his is his surrogate. HbA1C due on 11/28/2024 Labs ordered. VITALS: BP 124/74 Pulse 68 Ht 177.8 cm (5' 10) Wt 86 kg (189 lb 9.5 oz) SpO2 96% BMI 27.20 kg/m? Last 4 Encounter Wt Readings: Date: Wt: 09/02/2024 84.9 kg (187 lb 2.7 oz) 06/02/2024 87.1 kg (192 lb) 05/28/2024 86.6 kg (191 lb) 11/26/2023 88.2 kg (194 lb 6.4 oz) PHYSICAL EXAMINATION: General appearance: Well appearing, alert, in no acute distress, well-hydrated, well nourished. Skin: Skin color, texture, turgor normal, no suspicious rashes or lesions Head: Normocephalic, no masses, lesions, tenderness or abnormalities Eyes: Anicteric sclera. Pupils are equally round and reactive to light. Extraocular movements are intact. Ears:cerumen in left ear. Discussed removal when feeling well. Nose/Sinuses: Nares merlin (more content not included)... Normal [facility] COVID AND INFLUENZA A/B AND RSV PCR, ROUTINEon 11-28-2024 SARS-CoV-2 (COVID-19) RNA JOSUE+probe Ql (Unsp spec) SARS-COV-2 (AGENT OF COVID-19) RNA: Not detected INFLUENZA A RNA: Detected INFLUENZA B RNA: Not detected RESPIRATORY SYNCYTIAL VIRUS (RSV) RNA: Not detected Abnormal [facility] Comment on above: Performed By: #### C VFLRS ####[facility] LABCLIA [id number] [address] [place] CNOVon 10-07-2024 CNOV Office Visit (ORTHST ) [place] ([id number]) 1945 M Date Time Provider Department 10/07/24 1:00 PM RAVIN HOUGH During your visit today, we recorded the following information about you: Ravin Hough MD 10/07/2024 2:25 PM Addendum He is here with progressive left hip and groin pain. Longstanding issues with his hip. Previous left knee replacement 30+ years ago doing well. Hip has progressed to the point of affecting his quality life. Pain at rest and with all physical activities. Takes Tylenol for his pain occasional [id number] anti-inflammatories. Otherwise healthy.Review of systems negative for fever, weight loss, malaise, fatigue, significant headache, vision changes, hearing loss, neck swelling, cough, chest pain, shortness of breath, dyspnea on exertion, abdominal pain, nausea, vomiting, diarrhea, urinary dysfunction, upper/lower extremity numbness/tingling/weak ness/edema, heat/cold intolerance On exam antalgic gait. Left hip flexion is 70 with virtually no rotation. Abducts 10. Negative straight leg raise. Neurologically intact. Right hip flexion 100 and rotation of 30. X-rays show advanced arthritis with obliteration of the joint space. Assessment left hip arthritis. We discussed treatment options and he is an excellent candidate for hip replacement. Risks and benefits were discussed and all questions answered. Will schedule this for early next year. All questions answered. Did order him topical anti-inflammatory gel. Ravin Hough MD CONSULT ORTHOPAEDIC: HIP PRIMARY CARE PHYSICIAN: Josue Aguilera MD REFERRING PROVIDER: [facility] [address] [facility] [address] ASSESSMENT AND PLAN Impression: Left Hip Severe Degenerative Osteoarthritis, Primary Diagnoses: (M16.12) Primary osteoarthritis of left hip (primary encounter diagnosis) (Z96.642) Status post left hip replacement Based upon the evaluation today and after discussions with [place], Santa Pearl has significant, worsening pain at the hip. This pain is increased with activity and weight bearing, and interferes with activities of daily living. These symptoms have continued despite a number of non-surgical measures, including a trial of oral pain medication (for at least 12 weeks). At this point, the patient will not benefit from further PT due to the severity of their condition. The patient's physical examination is consistent with limitations in range of motion, pain with passive range of motion, and an antalgic gait. These examination findings are corroborated by imaging findings of joint space narrowing, periarticular osteophyte formation, and subchondral sclerosis. The patient has been treated by the practice and all reasonable treatments have failed to control the disease, which causes significant pain and limits activities of daily living. The patient has failed conservative treatment and joint replacement surgery was discussed and agreed upon by both provider and patient. The patient has elected to proceed with surgical management to improve function and relieve pain refractory to non-surgical measures: Left Primary Total Hip Arthroplasty as evidenced by progressive symptoms. Progressive symptoms include: Pain impacting sleep or causing fatigue Pain impacting work Pain worsened by weight bearing Pain effecting living situation Pain limiting ability to stay fit and healthy Unable to ambulate 2 blocks without significant pain and dysfunction. Surgery Details Date and Location: At [facility] on 12/31/24. Implants: Krystal Rob[employer]: No Predicted LOS: 2 days (Inpatient candidate) The risks and benefits of surgery were discussed at length including but not limited to the risks of infection, bleeding, nerve or blood vessel injury, deep venous thrombosis, pulmonary embolism, , paralysis, hip dislocation, leg length discrepancy (including requiring use of permanent shoe lift), bone fracture, component loosening or failure requiring re-operation or amputation. Informed consent was obtained and the patient was scheduled. We also discussed fixation strategies including cement and cementless fixation and modern alternative bearings including metal or ceramic with cross-linked polyethylene, [id number] and [id number] as well as advantages and disadvantages of each. We also discussed less invasive surgical approaches and reported benefits and risks of these approaches. The patient has been ordered: Office Visit on 10/07/24 WALKER FOLDING WHEELED W/O S RAISED TOILET SEAT TOILET RAIL, EACH BATH/SHOWER CHAIR CONSULT TO ORTHOPAEDICS CONSULT TO PHYSICAL THERAPY No orders placed today. CONSULTS: Patient does not require consults for optimization at this time. Total Joint Arthroplasty: Risk Calculator Santa Pearl has a 19.8% chance of NOT (more content not included)... Normal [facility] 09-08-2024 [facility] Telephone ([facility]WS) [place] ([id number]) 1945 M Date Time Provider Department 09/08/24 [facility] During your visit today, we recorded the following information about you: Manuela Hernandez MA 09/08/2024 11:26 AM Signed ----- Message from Michaela Heart sent at 09/08/2024 8:10 AM EDT ----- Your left hip Xray shows severe arthritis. I will refer you to orthopedics. You may need to call scheduling for an appt. Manuela Hernandez MA 09/08/2024 11:27 AM Signed Pt notified of results via [employer]. Manuela Hernandez Ma Advised to call in and schedule ortho appt. Allergies As of Date: 09/08/2024 Noted Allergy Reaction COCONUT 02/11/2010 11 - Vomiting Comments: Only allergic to shredded coconut, fine with oils. Date Reviewed: 09/02/2024 Reviewed by: Michaela Heart, CARMEN.OB/GYN DOCTOR - Fully Assessed Prescriptions as of 09/08/2024 - aspirin, enteric coated (ASPIRIN, ENTERIC COATED) 81 mg EC tablet Take 1 tablet by mouth once daily. - levothyroxine (SYNTHROID) 112 mcg tablet Take 1 tablet by mouth once daily. - metFORMIN ER (GLUCOPHAGE XR) 500 mg 24 hr tablet Take 1 tablet by mouth daily with breakfast. - atorvastatin (LIPITOR) 20 mg tablet Take 1 tablet by mouth once daily. - lisinopril (ZESTRIL) 5 mg tablet Take 1 tablet by mouth once daily. - nitroglycerin sublingual (NITROQUICK) 0.4 mg SL tablet Dissolve 1 tablet under the tongue every 5 minutes as needed for chest pain, up to 3 doses. If no relief, call 911. 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 12/19/2016 Herpes zoster without mention of complication [*05/03/2007 12/19/2016 Routine general medical examination at [facility]*07/17/2007 06/14/2016 Nodular prostate without urinary obstruction [N*09/19/2007 Other seborrheic keratosis [L82.1] 12/08/2008 12/19/2016 Elevated blood pressure reading without diagnos*06/03/2009 11/19/2019 Chest Pain [R07.9] 07/13/2009 02/21/2010 Other hyperlipidemia [E78.49] 07/13/2009 SUMMARY [V999.95] 02/11/2010 02/21/2010 Hypothyroid [E03.9] 02/12/2010 02/21/2010 NSTEMI (non-ST elevated myocardial infarction) *02/12/2010 12/19/2016 Sinus Bradycardia [R00.1] 02/12/2010 02/21/2010 Flank pain [R10.9] 02/21/2010 12/19/2016 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 uribe*02/21/2010 03/13/2022 S/P angioplasty with stent 02/21/2010 12/19/2016 Dysmetabolic syndrome [E88.810] 07/29/2012 Thyroid nodule [E04.1] 08/05/2012 Presence of stent in LAD coronary artery [Z95.5]06/22/2016 S/P right coronary artery (RCA) stent placement*06/22/2016 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 uribe*06/22/2016 Sinus bradycardia [R00.1] 06/22/2017 Essential hypertension [I10] 11/19/2019 History of hypothyroidism [Z86.39] 09/14/2022 10/03/2023 Subarachnoid bleed (HCC) [I60.9] 11/18/2023 Diagnosed: 11/26/2023 Controlled type 2 diabetes mellitus without com*05/29/2024 Encounter Status:Closed by MANUELA HERNANEDZ on 09/08/24 [facility] [place] ([id number]) 1945 M Date Time Provider Department 09/08/24 [facility] During your visit today, we recorded the following information about you: Manuela Hernandez MA 09/08/2024 11:23 AM Signed ----- Message from Michaela Heart sent at 09/08/2024 8:03 AM EDT ----- Xray of left knee was normal and prosthesis is stable. Manuela Hernandez MA 09/08/2024 11:26 AM Signed Pt notified of results via [employer]. Manuela Hernandez Ma Allergies As of Date: 09/08/2024 Noted Allergy Reaction COCONUT 02/11/2010 11 - Vomiting Comments: Only allergic to shredded coconut, fine with oils. Date Reviewed: 09/02/2024 Reviewed by: Michaela Heart, CENTRAL SU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.OB/GYN DOCTOR - Fully Assessed Prescriptions as of 09/08/2024 - aspirin, enteric coated (ASPIRIN, ENTERIC COATED) 81 mg EC tablet Take 1 tablet by mouth once daily. - levothyroxine (SYNTHROID) 112 mcg tablet Take 1 tablet by mouth once daily. - metFORMIN ER (GLUCOPHAGE XR) 500 mg 24 hr tablet Take 1 tablet by mouth daily with breakfast. - atorvastatin (LIPITOR) 20 mg tablet Take 1 tablet by mouth once daily. - lisinopril (ZESTRIL) 5 mg tablet Take 1 tablet by mouth once daily. - nitroglycerin sublingual (NITROQUICK) 0.4 mg SL tablet Dissolve 1 tablet under the tongue every 5 minutes as needed for chest pain, up to 3 doses. If no relief, call 911. 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 12/19/2016 Herpes zoster without mention of complication [*05/03/2007 12/19/2016 Routine general medical examination at [facility]*07/17/2007 06/14/2016 Nodular prostate without urinary obstruction [N*09/19/2007 Other seborrheic keratosis [L82.1] 12/08/2008 12/19/2016 Elevated blood pressure reading without diagnos*06/03/2009 11/19/2019 Chest Pain [R07.9] 07/13/2009 02/21/2010 Other hyperlipidemia [E78.49] 07/13/2009 SUMMARY [V999.95] 02/11/2010 02/21/2010 Hypothyroid [E03.9] 02/12/2010 02/21/2010 NSTEMI (non-ST elevated myocardial infarction) *02/12/2010 12/19/2016 Sinus Bradycardia [R00.1] 02/12/2010 02/21/2010 Flank pain [R10.9] 02/21/2010 12/19/2016 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 uribe*02/21/2010 03/13/2022 S/P angioplasty with stent 02/21/2010 12/19/2016 Dysmetabolic syndrome [E88.810] 07/29/2012 Thyroid nodule [E04.1] 08/05/2012 Presence of stent in LAD coronary artery [Z95.5]06/22/2016 S/P right coronary artery (RCA) stent placement*06/22/2016 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 uribe*06/22/2016 Sinus bradycardia [R00.1] 06/22/2017 Essential hypertension [I10] 11/19/2019 History of hypothyroidism [Z86.39] 09/14/2022 10/03/2023 Subarachnoid bleed (HCC) [I60.9] 11/18/2023 Diagnosed: 11/26/2023 Controlled type 2 diabetes mellitus without com*05/29/2024 Encounter Status:Closed by MANUELA HERNANDEZ on 09/08/24 Normal [facility] 09-02-2024 CNOV Office Visit (FAMPWS ) [place] ([id number]) 1945 M Date Time Provider Department 09/02/24 10:00 AM [facility] During your visit today, we recorded the following information about you: Pulse Respiration Blood pressure Weight 63/minute 16/minute 120/68 84.9 kg Michaela Heart, CENTRAL SU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.OB/GYN DOCTOR 09/02/2024 9:59 AM Signed This is a 79 year old male who presents today with: Patient presents with: Diabetes: 3 month exam HISTORY OF PRESENT ILLNESS: Santa Pearl is a 79 year old male. Patient presents with: Diabetes: 3 month exam A month ago, he was working out in the yard. That night, his left knee swelled up. 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 Iced and took NSAIDS and acetaminophen. Swelling improved. Anterior thigh hurt terrible even to light touch. No instability. 0/10 at this moment, relieved with sitting [place] Sat down in chair and noticed terrible pain in left hip (deep in left buttock) no instability. 0/10 this morning, relieved with sitting. Pain for a couple days DM: Reports overall feeling sore Medication side effects: Some loose stools but better since taking ER. Home sugar checks: No Hypoglycemic spells: No. Watching diet: Yes. Unexpected weight loss: 4-5 lb Polyuria, polydipsia: No. Vision Changes: No. Foot lesions or numbness or pain: bottoms of feet numb- not since medication though. 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 HYPERLIPIDEMIA NEC/NOS Hyperplasia of prostate Personal history of colonic polyps S/P angioplasty with stent 02/21/2010 x2 Thyroid nodule 08/05/2012 Unspecified hemorrhoids without mention of complication Unspecified hypothyroidism PAST SURGICAL HISTORY Procedure Laterality Date ARTHRP KNE CONDYLEANDPLATU MEDIALANDLAT COMPARTMENTS 1990 Knee replacement, total LEFT ARTHRP KNE CONDYLEANDPLATU MEDIALANDLAT COMPARTMENTS 2006 PARTIAL KNEE REPLACEMENT RIGHT CC CORONARY STENT 02/2010 x2 COLONOSCOPY AND POLYPECTOMY 01/14/02 repeat 2012 FNA WITH IMAGING 08/21/12 U/S FNA right thyroid lesion ALLERGIES Coconut MEDICATIONS Current Outpatient Medications Medication Sig aspirin, enteric coated (ASPIRIN, ENTERIC COATED) 81 mg EC tablet Take 1 tablet by mouth once daily. levothyroxine (SYNTHROID) 112 mcg tablet Take 1 tablet by mouth once daily. metFORMIN ER (GLUCOPHAGE XR) 500 mg 24 hr tablet Take 1 tablet by mouth daily with breakfast. atorvastatin (LIPITOR) 20 mg tablet Take 1 tablet by mouth once daily. lisinopril (ZESTRIL) 5 mg tablet Take 1 tablet by mouth once daily. nitroglycerin sublingual (NITROQUICK) 0.4 mg SL tablet Dissolve 1 tablet under the tongue every 5 minutes as needed for chest pain, up to 3 doses. If no relief, call 911. No current facility-administered medications for this visit. FAMILY HISTORY Problem Relation Age of Onset Cancer Mother LYMPHATIC Heart Father IA Emphysema Father smoker/welder shielded metal arc Cancer Maternal Grandmother Social History Tobacco Use Smoking status: Former Current packs/day: 0.00 Average packs/day: 1 pack/day for 25.0 years (25.0 ttl pk-yrs) Types: Cigarettes Start date: 11/24/1964 Quit date: 11/24/1989 Years since quittin.7 Smokeless tobacco: Never Vaping Use Vaping status: Never Used Substance Use Topics Alcohol use: Yes Alcohol/week: 1.0 standard drink of alcohol Types: 1 Cans of Beer (12oz) per week Drug use: No EXAM: BP 120/68 Pulse 63 Resp 16 Wt 84.9 kg (187 lb 2.7 oz) SpO2 97% BMI 26.86 kg/m? PHYSICAL EXAM: Physical Exam Vitals reviewed. Constitutional: Appearance: Normal appearance. HENT: Head: Normocephalic. Cardiovascular: Rate and Rhythm: Normal rate and regular rhythm. Pulses: Normal pulses. Heart sounds: Normal heart sounds. Comments: Very distant heart sounds Pulmonary: Effort: Pulmonary effort is normal. Breath sounds: Normal breath sounds. Musculoskeletal: Comments: Left knee poor land varner, flexion and extension easy, able to externally rotate, some green ecchymosis along midline into lower thigh Left hip pain in buttock- poor ability to bend and externally rotate. No shortening of left leg and no external rotation Skin: General: Skin is warm and dry. Neurological: General: No focal deficit present. Mental Status: He is alert and oriented to person, place, and time. Psychiatric: Mood and Affect: Mood normal. Behavior: Behavior normal. LABS: Labs in Nov ASSESSMENT/PLAN: 1. Left hip pain - ICD9: 719.45, ICD10: M25.552 (primary diagnosis) Acute paion - XR HIP GENERAL 3V PELV/AP/LAT LEFT - XR KNEE GENERAL 4V AP BOTH/PA BOTH/LAT/ARCHIE (more content not included)... Normal [facility] XR HIP 3V PELV+ AP/LAT LTon 09-02-2024 XR HIP 3V PELV+ AP/LAT LT * * *Final Report* * * DATE OF EXAM: Sep 02 2024 10:30AM [id number] - XR HIP 3V PELV+ AP/LAT LT / PROCEDURE REASON: Left hip pain * * * * Physician Interpretation * * * * Examination: XR HIP 3V PELV+ AP/LAT LT History: Left hip pain Technique: XR HIP 3V PELV+ AP/LAT LT Comparison: None RESULT: AP pelvis and 2 coned-down views of the left hip reveal severe degenerative change and osteophytosis. [id number] appearance superiorly /laterally. No fracture. Normal alignment and mineralization. Moderate degenerative change involving the visualized right hip. Moderate degenerative change involving the lower lumbar spine. SI joints are unremarkable. IMPRESSION: SEVERE DEGENERATIVE CHANGE INVOLVING THE LEFT HIP Customer Service Correspondence Clerk: [facility] Transcribe Date/Time: Sep 08 2024 6:53A Dictated by : LORENA AN MD This examination was interpreted and the report reviewed and electronically signed by: LORENA AN MD on Sep 08 2024 6:54AM EST [id number] Normal [facility] XR KNEE 4V AP/PA BOTH+LAT/ME R LTon 09-02-2024 XR KNEE 4V AP/PA BOTH+LAT/ARCHIE LT * * *Final Report* * * DATE OF EXAM: Sep 02 2024 10:30AM [id number] - XR KNEE 4V AP/PA BOTH+LAT/ARCHIE LT / PROCEDURE REASON: Left knee pain, unspecified chronicity * * * * Physician Interpretation * * * * PROCEDURE: Left knee INDICATION: Left knee pain, unspecified chronicity .Chronic left knee pain TECHNIQUE: XR KNEE 4V AP/PA BOTH+LAT/ARCHIE LT COMPARISON: None FINDINGS: There is a total knee arthroplasty in satisfactory position. No periprosthetic lucency or fracture. No significant joint effusion. Medial joint compartment arthroplasty is seen in the right knee. IMPRESSION: No acute abnormality Customer Service Correspondence Clerk: [facility] Transcribe Date/Time: Sep 06 2024 4:37P Dictated by : VIRAL JIN MD This examination was interpreted and the report reviewed and electronically signed by: VIRAL JIN MD on Sep 06 2024 4:38PM EST [id number] Normal [facility] 07-02-2024 [facility] Telephone ([facility]) [place] ([id number]) 1945 M Date Time Provider Department 07/02/24 JOSUE AGUILERA [facility] During your visit today, we recorded the following information about you: Mable Amado RN 07/02/2024 10:00 AM Signed Patient calling with question regarding his current prescriptions. Information provided. Mable Amado RN Allergies As of Date: 07/02/2024 Noted Allergy Reaction COCONUT 02/11/2010 11 - Vomiting Comments: Only allergic to shredded coconut, fine with oils. Date Reviewed: 06/02/2024 Reviewed by: Michaela Heart APRN.OB/GYN DOCTOR - Fully Assessed Reason for Visit: Patient Question [7596] Prescriptions as of 07/02/2024 - aspirin, enteric coated (ASPIRIN, ENTERIC COATED) 81 mg EC tablet Take 1 tablet by mouth once daily. - levothyroxine (SYNTHROID) 112 mcg tablet Take 1 tablet by mouth once daily. - metFORMIN ER (GLUCOPHAGE XR) 500 mg 24 hr tablet Take 1 tablet by mouth daily with breakfast. - atorvastatin (LIPITOR) 20 mg tablet Take 1 tablet by mouth once daily. - lisinopril (ZESTRIL) 5 mg tablet Take 1 tablet by mouth once daily. - nitroglycerin sublingual (NITROQUICK) 0.4 mg SL tablet Dissolve 1 tablet under the tongue every 5 minutes as needed for chest pain, up to 3 doses. If no relief, call 911. 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 12/19/2016 Herpes zoster without mention of complication [*05/03/2007 12/19/2016 Routine general medical examination at [facility]*07/17/2007 06/14/2016 Nodular prostate without urinary obstruction [N*09/19/2007 Other seborrheic keratosis [L82.1] 12/08/2008 12/19/2016 Elevated blood pressure reading without diagnos*06/03/2009 11/19/2019 Chest Pain [R07.9] 07/13/2009 02/21/2010 Other hyperlipidemia [E78.49] 07/13/2009 SUMMARY [V999.95] 02/11/2010 02/21/2010 Hypothyroid [E03.9] 02/12/2010 02/21/2010 NSTEMI (non-ST elevated myocardial infarction) *02/12/2010 12/19/2016 Sinus Bradycardia [R00.1] 02/12/2010 02/21/2010 Flank pain [R10.9] 02/21/2010 12/19/2016 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 uribe*02/21/2010 03/13/2022 S/P angioplasty with stent 02/21/2010 12/19/2016 Dysmetabolic syndrome [E88.810] 07/29/2012 Thyroid nodule [E04.1] 08/05/2012 Presence of stent in LAD coronary artery [Z95.5]06/22/2016 S/P right coronary artery (RCA) stent placement*06/22/2016 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 uribe*06/22/2016 Sinus bradycardia [R00.1] 06/22/2017 Essential hypertension [I10] 11/19/2019 History of hypothyroidism [Z86.39] 09/14/2022 10/03/2023 Subarachnoid bleed (HCC) [I60.9] 11/18/2023 Diagnosed: 11/26/2023 Controlled type 2 diabetes mellitus without com*05/29/2024 Encounter Status:Closed by MABLE AMADO on 07/02/24 Normal [facility]OV[facility] 06-02-2024 CNOV Office Visit ([facility] ) [place] ([id number]) 1945 M Date Time Provider Department 06/02/24 10:00 AM [facility] During your visit today, we recorded the following information about you: Pulse Blood pressure Weight 47/minute 120/60 87.1 kg Michaela Heart APRN.OB/GYN DOCTOR 06/02/2024 10:11 AM Signed This is a 79 year old male who presents today with: Patient presents with: Diabetes HISTORY OF PRESENT ILLNESS: Santa Pearl is a 79 year old male. Patient presents with: Diabetes Having a lot of nausea and diarrhea from metformin. Does exercise regularly, walks 1/2 mile daily. Has not experienced any crashes with blood sugar. 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 HYPERLIPIDEMIA NEC/NOS Hyperplasia of prostate Personal history of colonic polyps S/P angioplasty with stent 02/21/2010 x2 Thyroid nodule 08/05/2012 Unspecified hemorrhoids without mention of complication Unspecified hypothyroidism PAST SURGICAL HISTORY Procedure Laterality Date ARTHRP KNE CONDYLEANDPLATU MEDIALANDLAT COMPARTMENTS 1990 Knee replacement, total LEFT ARTHRP KNE CONDYLEANDPLATU MEDIALANDLAT COMPARTMENTS 2006 PARTIAL KNEE REPLACEMENT RIGHT CC CORONARY STENT 02/2010 x2 COLONOSCOPY AND POLYPECTOMY 01/14/02 repeat 2012 FNA WITH IMAGING 08/21/12 U/S FNA right thyroid lesion ALLERGIES Coconut MEDICATIONS Current Outpatient Medications Medication Sig atorvastatin (LIPITOR) 20 mg tablet Take 1 tablet by mouth once daily. lisinopril (ZESTRIL) 5 mg tablet Take 1 tablet by mouth once daily. levothyroxine (SYNTHROID) 112 mcg tablet Take 1 tablet by mouth once daily. aspirin, enteric coated (ASPIRIN, ENTERIC COATED) 81 mg EC tablet Take 1 tablet by mouth once daily. nitroglycerin sublingual (NITROQUICK) 0.4 mg SL tablet Dissolve 1 tablet under the tongue every 5 minutes as needed for chest pain, up to 3 doses. If no relief, call 911. No current facility-administered medications for this visit. FAMILY HISTORY Problem Relation Age of Onset Cancer Mother LYMPHATIC Heart Father IA Emphysema Father smoker/welder shielded metal arc Cancer Maternal Grandmother Social History Tobacco Use Smoking status: Former Packs/day: 1.00 Years: 25.00 Additional pack years: 0.00 Total pack years: 25.00 Types: Cigarettes Quit date: 11/24/1989 Years since quittin.5 Smokeless tobacco: Never Vaping Use Vaping Use: Never used Substance Use Topics Alcohol use: Yes Alcohol/week: 1.0 standard drink of alcohol Types: 1 Cans of Beer (12oz) per week Drug use: No REVIEW OF SYSTEMS GENERAL: No weight loss, malaise or fevers/chills HEENT: Negative for frequent or significant headaches, No changes in vision. Decreased hearing. NECK: Negative for lumps, goiter, pain and significant neck swelling RESPIRATORY: Rarely cough, no wheezing, dyspnea or shortness of breath CARDIOVASCULAR: Yesterday had chest pain- sitting watching TV- self limiting for a couple minutes- resolved spontaneously, no leg swelling, no orthopnea, no palpitations GI: + nausea, no vomiting, + diarrhea/constipation. No hematochezia/melena. No heartburn or reflux symptoms. : No history of dysuria, frequency or incontinence EXAM: BP 140/60 Pulse (!) 47 Wt 87.1 kg (192 lb) SpO2 97% BMI 27.55 kg/m? PHYSICAL EXAM: Physical Exam Vitals reviewed. Constitutional: Appearance: Normal appearance. HENT: Head: Normocephalic. Cardiovascular: Rate and Rhythm: Normal rate and regular rhythm. Heart sounds: Normal heart sounds. No murmur heard. No gallop. Pulmonary: Effort: Pulmonary effort is normal. Breath sounds: Normal breath sounds. Abdominal: General: Bowel sounds are normal. Palpations: Abdomen is soft. Neurological: Mental Status: He is alert. LABS: HgA1c reviewed and discussed with pt. ASSESSMENT/PLAN: 1. Controlled type 2 diabetes mellitus without complication, without long-term current use of insulin (HCC) - ICD9: 250.00, ICD10: E11.9 - Controlled - Stop metformin and switch to metformin SA 500 mg daily - Message with symptom update in 1-2 weeks - Follow up in 3 months - Educated on diet and exercise Discussed treatment plan and patient voices understanding. Patient's questions answered appropriately. Medications and potential side effects were discussed and patient voices understanding. Return to the office as scheduled or as needed for worsening/no improvement. Michaela Heart APRN.Michaela Garzon APRN.CNP 06/02/2024 10:10 AM Addendum 1) Stop metformin 2) In 2 days, start metformin SA 500 mg daily 3) Avoid sweets and simple carbohydr (more content not included)... Normal [facility] 05-29-2024 [facility] Telephone ([facility]) [place] ([id number]) 1945 M Date Time Provider Department 05/29/24 JOSUE AGUILERA During your visit today, we recorded the following information about you: Josue Aguilera MD 05/29/2024 8:24 AM Signed Thyroid is good. Sugars are now in a diabetic range. Add metformin once a day with one meal. Come in to talk with one of us to discuss further. Can set up with Tisha or Lacey if able. Manuela Hernandez MA 05/29/2024 9:44 AM Signed Pt notified and voiced understanding. Appt made. Manuela Hernandez MA Allergies As of Date: 05/29/2024 Noted Allergy Reaction COCONUT 02/11/2010 11 - Vomiting Comments: Only allergic to shredded coconut, fine with oils. Date Reviewed: 05/28/2024 Reviewed by: Ragini Dawn LPN - Fully Assessed Reason for Visit: Results [95] Primary Visit Diagnosis:Controlled type 2 diabetes mellitus without complication, without long-term current use of insulin (HCC) [E11.9] Order(s):metFORMIN (GLUCOPHAGE) 500 mg tabletTake 1 tablet by mouth daily with breakfast.Disp: 30 tabletRfl: 11 Prescriptions as of 05/29/2024 - metFORMIN (GLUCOPHAGE) 500 mg tablet Take 1 tablet by mouth daily with breakfast. - atorvastatin (LIPITOR) 20 mg tablet Take 1 tablet by mouth once daily. - lisinopril (ZESTRIL) 5 mg tablet Take 1 tablet by mouth once daily. - levothyroxine (SYNTHROID) 112 mcg tablet Take 1 tablet by mouth once daily. - aspirin, enteric coated (ASPIRIN, ENTERIC COATED) 81 mg EC tablet Take 1 tablet by mouth once daily. - nitroglycerin sublingual (NITROQUICK) 0.4 mg SL tablet Dissolve 1 tablet under the tongue every 5 minutes as needed for chest pain, up to 3 doses. If no relief, call 911. 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 12/19/2016 Herpes zoster without mention of complication [*05/03/2007 12/19/2016 Routine general medical examination at [facility]*07/17/2007 06/14/2016 Nodular prostate without urinary obstruction [N*09/19/2007 Other seborrheic keratosis [L82.1] 12/08/2008 12/19/2016 Elevated blood pressure reading without diagnos*06/03/2009 11/19/2019 Chest Pain [R07.9] 07/13/2009 02/21/2010 Other hyperlipidemia [E78.49] 07/13/2009 SUMMARY [V999.95] 02/11/2010 02/21/2010 Hypothyroid [E03.9] 02/12/2010 02/21/2010 NSTEMI (non-ST elevated myocardial infarction) *02/12/2010 12/19/2016 Sinus Bradycardia [R00.1] 02/12/2010 02/21/2010 Flank pain [R10.9] 02/21/2010 12/19/2016 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 uribe*02/21/2010 03/13/2022 S/P angioplasty with stent 02/21/2010 12/19/2016 Dysmetabolic syndrome [E88.810] 07/29/2012 Thyroid nodule [E04.1] 08/05/2012 Presence of stent in LAD coronary artery [Z95.5]06/22/2016 S/P right coronary artery (RCA) stent placement*06/22/2016 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 uribe*06/22/2016 Sinus bradycardia [R00.1] 06/22/2017 Essential hypertension [I10] 11/19/2019 History of hypothyroidism [Z86.39] 09/14/2022 10/03/2023 Subarachnoid bleed (HCC) [I60.9] 11/18/2023 Controlled type 2 diabetes mellitus without com*05/29/2024 Prescriptions ordered this encounter Disp Refills Start End METFORMIN 500 MG TABLET 30 t* 11 05/29/2024 05/29/2025 Route: ORAL Sig: Take 1 tablet by mouth daily with breakfast. Encounter Status:Closed by MANUELA HERNANDEZ on 05/29/24 [facility] [place] 05-28-2024 CNOV Office Visit (FAMPWS ) [place] ([id number]) 1945 M Date Time Provider Department 05/28/24 10:00 AM JOSUE AGUILERA During your visit today, we recorded the following information about you: Pulse Blood pressure Weight 65/minute 130/70 86.6 kg Josue Aguilera MD 05/28/2024 10:41 AM Signed Patient presents with: 6 Month Exam HPI: Patient presents today for office visit for follow up HTN: Patient is compliant with meds Yes Monitors bp at home: No. Denies side effects: Yes. Chest pain: No. Dyspnea: No. Edema: No. Palpitations: No. Syncope: No. Headache: No. Dizziness: No. Left ear: Every now and then hears his heartbeat in his ear. Also has noticed diminished hearing. Does not wear hearing aids. Concerns with range of motion getting more limited with his age. Dicussed walking and silver sneakers. No falls. HYPERLIPIDEMIA: Patient is taking medications: Yes. Patient is watching diet: Yes. Patient denies myalgias: Yes. Patient denies gi upset: Yes Did not see neuro as recommended. But last ct was ok. No signs of bleed. No headache. No neuro issues. MEDICATIONS: Current Outpatient Medications Medication Sig atorvastatin (LIPITOR) 20 mg tablet Take 1 tablet by mouth once daily. lisinopril (ZESTRIL) 5 mg tablet Take 1 tablet by mouth once daily. levothyroxine (SYNTHROID) 112 mcg tablet Take 1 tablet by mouth once daily. aspirin, enteric coated (ASPIRIN, ENTERIC COATED) 81 mg EC tablet Take 1 tablet by mouth once daily. nitroglycerin sublingual (NITROQUICK) 0.4 mg SL tablet Dissolve 1 tablet under the tongue every 5 minutes as needed for chest pain, up to 3 doses. If no relief, call 911. No current facility-administered medications for this visit. ALLERGIES: ALLERGIES Allergen Reactions Coconut Vomiting Only allergic to shredded coconut, fine with oils. 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 HYPERLIPIDEMIA NEC/NOS Hyperplasia of prostate Personal history of colonic polyps S/P angioplasty with stent 02/21/2010 x2 Thyroid nodule 08/05/2012 Unspecified hemorrhoids without mention of complication Unspecified hypothyroidism PAST SURGICAL HISTORY Procedure Laterality Date ARTHRP KNE CONDYLEANDPLATU MEDIALANDLAT COMPARTMENTS 1990 Knee replacement, total LEFT ARTHRP KNE CONDYLEANDPLATU MEDIALANDLAT COMPARTMENTS 2006 PARTIAL KNEE REPLACEMENT RIGHT CC CORONARY STENT 02/2010 x2 COLONOSCOPY AND POLYPECTOMY 01/14/02 repeat 2012 FNA WITH IMAGING 08/21/12 U/S FNA right thyroid lesion FAMILY HISTORY Problem Relation Age of Onset Cancer Mother LYMPHATIC Heart Father IA Emphysema Father smoker/welder shielded metal arc Cancer Maternal Grandmother Social History Tobacco Use Smoking status: Former Packs/day: 1.00 Years: 25.00 Additional pack years: 0.00 Total pack years: 25.00 Types: Cigarettes Quit date: 11/24/1989 Years since quittin.5 Smokeless tobacco: Never Vaping Use Vaping Use: Never used Substance Use Topics Alcohol use: Yes Alcohol/week: 1.0 standard drink of alcohol Types: 1 Cans of Beer (12oz) per week Drug use: No Reviewed current medications, allergies, past medical history, surgical history, family history and social history today. REVIEW OF SYSTEMS No gi or gu issues. All other reviewed and negative other than HPI. HEALTH MAINTENANCE: Reviewed health maintenance issues today and recommended the following in detail. Advance Directive Discussion due on 11/12/2023 Behavioral Health Screening -Behavioral Health Screening PHQ-2 Score: 0 (Lower risk for depression) DOC-2 Score: 0 (Lower risk for anxiety) Recommendation: no further intervention at this time Colorectal Cancer Screening due on 02/19/2024 BP Controlled (<130/80) due on 03/14/2024 VITALS: BP 130/70 Pulse 65 Wt 86.6 kg (191 lb) SpO2 96% BMI 27.41 kg/m? Last 4 Encounter Wt Readings: Date: Wt: 11/26/2023 88.2 kg (194 lb 6.4 oz) 10/03/2023 87.5 kg (193 lb) 03/14/2023 88.5 kg (195 lb) 01/08/2023 88.9 kg (196 lb) PHYSICAL EXAMINATION: General appearance: Well appearing, alert, in no acute distress, well-hydrated, well nourished. Skin: Skin color, texture, turgor normal, no suspicious rashes or lesions Head: Normocephalic, no masses, lesions, tenderness or abnormalities Eyes: Anicteric sclera. Pupils are equally round and reactive to light. Extraocular movements are intact. Ears: left tm obscured by wax on arrival. Lungs: Lungs clear to auscultation. No wheezing, rhonchi, rales Heart: RRR without murmur, gallop, or rubs. No ectopy Abdomen: Normal abdominal exam, Abdomen soft, non-tender. Bowel sounds normal. No masses, organ (more content not included)... Normal [facility] HbA1c (Bld)on 05-28-2024 Average glucose Estimated from glycated hemoglobin (Bld) [Mass/Vol] 143 mg/dL [facility] Comment on above: eAG: (Estimated aver age glucose) is a calculated value from HgbA1c and is wholesale representative of the average blood glucose level in the last 2-3 month period. HbA1c (Bld) [Mass fraction] 6.6 % High 4.3 - 5.6 % [facility] Comment on above: [place] Diabetes As sociation guidelines indicate that patients with HgbA1c in the range 5.7-6.4% are at increased risk for development of diabetes, and intervention by lifestyle modification may be beneficial. HgbA1c greater or equal to 6.5% is considered diagnostic of diabetes. Interpretation and review of laboratory results Abnormal [facility] Average glucose Estimated from glycated hemoglobin (Bld) [Mass/Vol] 143 mg/dL Normal [facility] Comment on above: Order Comment: Speci men Type: BLOOD SPECIMENOrdering Facility: [facility] Address: [address] [place] [address] Result Comment: eAG: (Estimated average glucose) is a calculated value from HgbA1c and is wholesale representative of the average blood glucose level in the last 2-3 month period. Performed By: #### 5 5454-3 ####[facility] LABCLIA [id number] [place] [address] [place] HbA1c (Bld) [Mass fraction] 6.6 % High 4.3-5.6 [facility] Comment on above: Order Comment: Speci men Type: BLOOD SPECIMENOrdering Facility: [facility] Address: [address] [place] [address] Result Comment: [place] Diabetes Association guidelines indicate that patients with HgbA1c in the range 5.7-6.4% are at increased risk for development of diabetes, and intervention by lifestyle modification may be beneficial. HgbA1c greater or equal to 6.5% is considered diagnostic of diabetes. Performed By: #### 5 5454-3 ####[facility] LABCLIA [id number] [place] [address] [place] TSH SerPl-aCncon 05-28-2024 TSH Qn 2.040 m[IU]/L Normal 0.270-4.200 [facility] Comment on above: Order Comment: Speci men Type: BLOOD SPECIMENOrdering Facility: [facility] Address: [address] [place] [address] Performed By: #### 3 016-3 ####[facility] LABCLIA [id number] [place] [address] [place] NM CARDIAC PERF STRESS/PHARM on 03-12-2023 [facility] XR Lumbar spine 3 Viewson IMPRESSION: Multilevel lumbar degenerative findings. Fusion L3-4 disc space. Grade 1 spondylolisthesis L5-S1 Customer Service Correspondence Clerk: MELISSA Transcribe Date/Time: Sep 15 2022 9:47A Dictated by : RAMIRO PETERSEN MD This examination was interpreted and the report reviewed and electronically signed by: RAMIRO PETERSEN MD on Sep 15 2022 9:49AM [facility] DIVISION OF RADIOLOGY * * *Final Report* * * DATE OF EXAM: Sep 14 2022 9:37AM WOX 5228 - XR LUMBAR 3V AP/LAT/L5-S1 / PROCEDURE REASON: Lumbar pain * * * * Physician Interpretation * * * * Lumbar spine History: Lumbar pain Prior study: None Findings: AP and lateral views were performed. Slight dextroscoliosis. Vertebral bodies and pedicles are intact. Multilevel asymmetric disc space narrowing with endplate spurring. Fusion L3-4 disc space. Grade 1 spondylolisthesis L5-S1. Counting reference: Lumbosacral junction. For the purposes of this report, L4-5 is considered the level of the iliac crest and there are 5 lumbar-type vertebrae. Anatomic Variants: None. DIVISION OF RADIOLOGY Provider, Nedra Rojas - 09/15/2022 * * *Final Report* * * DATE OF EXAM: Sep 14 2022 9:37AM WOX 5228 - XR LUMBAR 3V AP/LAT/L5-S1 / PROCEDURE REASON: Lumbar pain * * * * Physician Interpretation * * * * Lumbar spine History: Lumbar pain Prior study: None Findings: AP and lateral views were performed. Slight dextroscoliosis. Vertebral bodies and pedicles are intact. Multilevel asymmetric disc space narrowing with endplate spurring. Fusion L3-4 disc space. Grade 1 spondylolisthesis L5-S1. Counting reference: Lumbosacral junction. For the purposes of this report, L4-5 is considered the level of the iliac crest and there are 5 lumbar-type vertebrae. Anatomic Variants: None. IMPRESSION IMPRESSION: Multilevel lumbar degenerative findings. Fusion L3-4 disc space. Grade 1 spondylolisthesis L5-S1 Customer Service Correspondence Clerk: PSCB Transcribe Date/Time: Sep 15 2022 9:47A Dictated by : RAMIRO PETERSEN MD This examination was interpreted and the report reviewed and electronically signed by: RAMIRO PETERSEN MD on Sep 15 2022 9:49AM EST [facility] XR Lumbar spine 3 ViewsOrder ed By: Ccf Provider on 09-15-2022 [facility] XR Lumbar spine 3 Viewson Radiology Study observation (narrative) [facility] Absolute lymphocyte counton 06-20-2022 Lymphocytes Auto (Unsp spec) [#/Vol] 2.08 10*3/uL 0.83-4.51 [facility] Work Phone: Basophil percentageon 2021 Basophils/100 WBC (Bld) 0.3 % 0-1 [facility] Work Phone: Chloride [Moles/Vol] 108 mmol/L 98-107 [facility] Work Phone: Eosinophils/100 WBC (Bld) 3.1 % 0-5 [facility] Work Phone: Glucose [Mass/Vol] 123 mg/dL 74-106 [facility] Work Phone: Comment on above: Fasting Glucose resu lt from 100 to 125 mg/dL suggests IMPAIRED HOMEOSTASIS per A.D.A. criteria. Neutrophils (Bld) [#/Vol] 5.2 10*3/uL 2.0-7.7 [facility] Work Phone: Neutrophils/100 WBC (Bld) 59.3 % 47-70 [facility] Work Phone: Potassium [Moles/Vol] 3.7 mmol/L 3.5-5.1 [facility] Work Phone: Sodium [Moles/Vol] 140 mmol/L 136-145 [facility] Work Phone: WBC (Bld) [#/Vol] 8.7 10*3/uL 4.4-11.0 [facility] Work Phone: Blood erythrocytes count (nu mber/volume)on 06-20-2022 RBC (Bld) [#/Vol] 3.94 10*6/uL 4.6-6.2 [facility] Work Phone: Blood hemoglobin measurement (mass/volume)on 06-20-2022 Hemoglobin (Bld) [Mass/Vol] 12.6 g/dL 13.0-16.5 [facility] Work Phone: Blood lymphocytes/100 leukoc yteson 06-20-2022 Lymphocytes/100 WBC (Bld) 23.8 % 19-41 [facility] Work Phone: Blood monocytes/100 leukocyt eson 06-20-2022 Monocytes/100 WBC (Bld) 13.0 % 0-10 [facility] Work Phone: Blood platelet mean volumeon 06-20-2022 Platelet mean volume (Bld) [Entitic vol] 10.2 fL 6.2-12.0 [facility] Work Phone: Determination of erythrocyte mean corpuscular volume (MCV)on 06-20-2022 MCV (RBC) [Entitic vol] 97.0 fL 80-94 [facility] Work Phone: [phone] Hematocrit Auto (Bld) [Volum e fraction]on 06-20-2022 Hematocrit (Bld) [Volume fraction] 38.2 % 40-54 [facility] Work Phone: [phone] Laboratory - Chemistry and C hemistry - challengeon 06-20-2022 CO2 [Moles/Vol] 28.0 mmol/L 21.0-32.0 [facility] Work Phone: [phone] Urea nitrogen/Creatinine [Mass ratio] 20.7 mg/mg 10-20 [facility] Work Phone: [phone] Laboratory - Hematology and Cell countson 06-20-2022 Erythrocyte distribution width (RBC) [Entitic vol] 45.1 fL 35.1-43.9 [facility] Work Phone: [phone] Erythrocyte distribution width (RBC) [Ratio] 12.5 % 11.6-14.6 [facility] Work Phone: [phone] Immature granulocytes/100 WBC (Bld) 0.500 % 0.0-0.9 [facility] Work Phone: [phone] Comment on above: IG% - Immature Granu locytes (promyelocytes, myelocytes and metamyelocytes) > 1% indicates that a LEFT SHIFT is Present. MCH (RBC) [Entitic mass] 32.0 pg 27.0-32.0 [facility] Work Phone: [phone] Nucleated RBC/100 WBC (Bld) [Ratio] 0 % 0-5 [facility] Work Phone: [phone] MCHC Auto (RBC) [Mass/Vol]on 06-20-2022 MCHC (RBC) [Mass/Vol] 33.0 g/dL 32-36 [facility] Work Phone: [phone] No Panel Informationon 06-20 Troponin I High Sensitivity 20 pg/mL 3.0-78.0 [facility] Work Phone: [phone] Comment on above: Please Note: New Laura t Units and Gender Specific Reference Ranges. For more information see Policy Stat Procedure [place] High Sensitivity Troponin (TNIH) and attachments. Estimated Creatinine Clearance Calc 63.88 ml/min [facility] Work Phone: Estimated GFR (MDRD) Amer 125 mL/min >60 [facility] Work Phone: Comment on above: GFR Calc Estimated GFR (MDRD) Non-Af Amer 104 mL/min >60 [facility] Work Phone: Comment on above: Non- GFR Calc Platelets bldon 06-20-2022 Platelets (Bld) [#/Vol] 235 10*3/uL 150-450 [facility] Work Phone: Serum or plasma calcium judi urement (mass/volume)on 06-20-2022 Calcium [Mass/Vol] 8.4 mg/dL 8.5-10.1 [facility] Work Phone: Serum or plasma creatinine m easurement (mass/volume)on 06-20-2022 Creatinine [Mass/Vol] 0.77 mg/dL 0.70-1.30 [facility] Work Phone: Comment on above: The validity of the calculated GFR & GFRAA in patients over 70 years has not been determined. Clinical correlation is essential. Serum or plasma urea nitroge n measurement (mass/volume)on 06-20-2022 Urea nitrogen [Mass/Vol] 16 mg/dL 7-18 [facility] Work Phone: Thin prep Papanicolaou smear with manual screeningon 06-20-2022 Thin prep Papanicolaou smear with manual screening 4 5-15 [facility] Work Phone: XR Calcaneus - right 2 Views on 05-20-2021 IMPRESSION: No acute osseous abnormality identified. Customer Service Correspondence Clerk: MELISSA Transcribe Date/Time: May 20 2021 2:39P Dictated by : STANISLAV XIONG MD This examination was interpreted and the report reviewed and electronically signed by: STANISLAV XIONG MD on May 20 2021 2:39PM [facility] DIVISION OF RADIOLOGY * * *Final Report* * * DATE OF EXAM: May 20 2021 2:26PM WOX 5307 - XR CALCANEUS 2V AXIAL/LAT RT / PROCEDURE REASON: Foot pain, right * * * * Physician Interpretation * * * * Right calcaneus radiographs HISTORY: 76 years old Clinical information: Foot pain, right Right plantar heel pain x 9 days without injury TECHNIQUE: Images: XR CALCANEUS 2V AXIAL/LAT RT Comparison: None. RESULT: Findings: No fracture or dislocation identified. Plantar calcaneal spur. Calcifications involving the plantar aponeurosis. No soft tissue abnormality identified. DIVISION OF RADIOLOGY Provider, [facility] - 05/20/2021 * * *Final Report* * * DATE OF EXAM: May 20 2021 2:26PM WOX 5307 - XR CALCANEUS 2V AXIAL/LAT RT / PROCEDURE REASON: Foot pain, right * * * * Physician Interpretation * * * * Right calcaneus radiographs HISTORY: 76 years old Clinical information: Foot pain, right Right plantar heel pain x 9 days without injury TECHNIQUE: Images: XR CALCANEUS 2V AXIAL/LAT RT Comparison: None. RESULT: Findings: No fracture or dislocation identified. Plantar calcaneal spur. Calcifications involving the plantar aponeurosis. No soft tissue abnormality identified. IMPRESSION IMPRESSION: No acute osseous abnormality identified. Customer Service Correspondence Clerk: [facility]ITAL[facility] Transcribe Date/Time: May 20 2021 2:39P Dictated by : STANISLAV XIONG MD This examination was interpreted and the report reviewed and electronically signed by: STANISLAV XIONG MD on May 20 2021 2:39PM EST [facility] Radiology Study observation (narrative) [facility] XR Calcaneus - right 2 Views Ordered By: Cc Provider on 05-20-2021 [facility] XR Shoulder - right 3 Viewso n 03-07-2021 IMPRESSION: Degenerative change with no acute process seen. Customer Service Correspondence Clerk: [facility] Transcribe Date/Time: Mar 07 2021 10:54A Dictated by : KOKI RICKETTS MD This examination was interpreted and the report reviewed and electronically signed by: KOKI RICKETTS MD on Mar 07 2021 10:54AM [facility] DIVISION OF RADIOLOGY * * *Final Report* * * DATE OF EXAM: Mar 07 2021 10:05AM WOX 5253 - XR SHLDR >/=3V AP/JACK AP/OTHR RT / PROCEDURE REASON: Acute pain of right shoulder * * * * Physician Interpretation * * * * History: Acute right shoulder pain FINDINGS: 3 views of the right shoulder have been obtained. There is narrowing and marginal spurring of the acromioclavicular joint. Acromiohumeral glenohumeral joint spaces are maintained. There is mild spurring of the inferior glenoid. No acute bony abnormality is seen. DIVISION OF RADIOLOGY Provider, [facility] - 03/07/2021 * * *Final Report* * * DATE OF EXAM: Mar 07 2021 10:05AM WOX 5253 - XR SHLDR >/=3V AP/JACK AP/OTHR RT / PROCEDURE REASON: Acute pain of right shoulder * * * * Physician Interpretation * * * * History: Acute right shoulder pain FINDINGS: 3 views of the right shoulder have been obtained. There is narrowing and marginal spurring of the acromioclavicular joint. Acromiohumeral glenohumeral joint spaces are maintained. There is mild spurring of the inferior glenoid. No acute bony abnormality is seen. IMPRESSION IMPRESSION: Degenerative change with no acute process seen. Customer Service Correspondence Clerk: MELISSA Transcribe Date/Time: Mar 07 2021 10:54A Dictated by : KOKI RICKETTS MD This examination was interpreted and the report reviewed and electronically signed by: KOKI RICKETTS MD on Mar 07 2021 10:54AM EST [facility] Radiology Study observation (narrative) Juan F collado [facility] XR Shoulder - right 3 ViewsO rdered By: Cc Provider on 03-07-2021 [facility] CNNURSEon 01-27-2021 CNNURSE Nurse Visit (DAVID) [place] ([id number]) 1945 M Date Time Provider Department 01/27/21 CATHLEEN OLIVA (OB/GYN DOCTOR) DAVID During your visit today, we recorded the following information about you: Allergies As of Date: 01/27/2021 Noted Allergy Reaction COCONUT 02/11/2010 11 - Vomiting Comments: Only allergic to shredded coconut, fine with oils. Date Reviewed: 09/03/2020 Reviewed by: Viviana Peña Ma - Fully Assessed Order(s):Filtec SARS-COV-2 VACCINE 2D DOSE APPT [[id number]] Order #: [id number] Prescriptions as of 01/27/2021 Sig: ATORVASTATIN 20 MG TABLET Take 1 tablet by mouth once d* LEVOTHYROXINE 112 MCG TABLET Take 1 tablet by mouth once d* CLOPIDOGREL 75 MG TABLET Take 1 tablet by mouth once d* LISINOPRIL 5 MG TABLET Take 1 tablet by mouth once d* NITROGLYCERIN 0.4 MG SUBLINGU* Dissolve 1 tablet under the t* ASPIRIN 81 MG TABLET Take 1 tablet by mouth once d* Problem List As Of Date 01/27/2021 Noted Resolved Hypothyroidism [E03.9] 07/09/2006 Pain in joint, lower leg [M25.569] 01/08/2007 12/19/2016 Knee Joint Replacement by Other Means [Z96.659] 01/14/2007 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 12/19/2016 Herpes zoster without mention of complication [*05/03/2007 12/19/2016 [facility]*07/17/2007 06/14/2016 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 [N*09/19/2007 Other seborrheic keratosis [L82.1] 12/08/2008 12/19/2016 Elevated blood pressure reading without diagnos*06/03/2009 11/19/2019 Chest Pain [R07.9] 07/13/2009 02/21/2010 Other hyperlipidemia [E78.49] 07/13/2009 SUMMARY [V999.95] 02/11/2010 02/21/2010 Hypothyroid [E03.9] 02/12/2010 02/21/2010 NSTEMI (non-ST elevated myocardial infarction) *02/12/2010 12/19/2016 Sinus Bradycardia [R00.1] 02/12/2010 02/21/2010 Flank pain [R10.9] 02/21/2010 12/19/2016 CAD (Coronary Artery Disease) [I25.10] 02/21/2010 S/P angioplasty with stent 02/21/2010 12/19/2016 Dysmetabolic syndrome [E88.81] 07/29/2012 Thyroid nodule [E04.1] 08/05/2012 Presence of stent in LAD coronary artery [Z95.5]06/22/2016 S/P right coronary artery (RCA) stent placement*06/22/2016 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 uribe*06/22/2016 12/19/2016 Sinus bradycardia [R00.1] 06/22/2017 Essential hypertension [I10] 11/19/2019 [facility] Nurse Visit (COVAMD) [place] ([id number]) 1945 M Date Time Provider Department 01/06/21 8:[address] your visit today, we recorded the following information about you: Referring Provider: ROEL CARLISLE [[id number]] Allergies As of Date: 01/06/2021 Noted Allergy Reaction COCONUT 02/11/2010 11 - Vomiting Comments: Only allergic to shredded coconut, fine with oils. Date Reviewed: 09/03/2020 Reviewed by: Viviana Peña Ma - Fully Assessed Primary Visit Diagnosis:Need for vaccination [Z23] Order(s):SARS-COVID VACCINE 1ST DOSE APPT [[id number]] Order #: [id number] [facility]ACC[facility] [[id number]] Order #: [id number] PFIZER SARS-COV-2 VACCINE 2D DOSE APPT [[id number]] Order #: [id number] FUTURE Prescriptions as of 01/06/2021 Sig: ATORVASTATIN 20 MG TABLET Take 1 tablet by mouth once d* LEVOTHYROXINE 112 MCG TABLET Take 1 tablet by mouth once d* CLOPIDOGREL 75 MG TABLET Take 1 tablet by mouth once d* LISINOPRIL 5 MG TABLET Take 1 tablet by mouth once d* NITROGLYCERIN 0.4 MG SUBLINGU* Dissolve 1 tablet under the t* ASPIRIN 81 MG TABLET Take 1 tablet by mouth once d* Problem List As Of Date 01/06/2021 Noted Resolved Hypothyroidism [E03.9] 07/09/2006 More... 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 Other hyperlipidemia [E78.49] 07/13/2009 SUMMARY [V999.95] 02/11/2010 02/21/2010 More... Hypothyroid [E03.9] 02/12/2010 02/21/2010 More... NSTEMI (non-ST elevated myocardial infarction) *02/12/2010 12/19/2016 More... Sinus Bradycardia [R00.1] 02/12/2010 02/21/2010 More... Flank pain [R10.9] 02/21/2010 12/19/2016 CAD (Coronary Artery Disease) [I25.10] 02/21/2010 S/P angioplasty with stent 02/21/2010 12/19/2016 Dysmetabolic syndrome [E88.81] 07/29/2012 Thyroid nodule [E04.1] 08/05/2012 More... Presence of stent in LAD coronary artery [Z95.5]06/22/2016 S/P right coronary artery (RCA) stent placement*06/22/2016 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 uribe*06/22/2016 12/19/2016 Sinus bradycardia [R00.1] 06/22/2017 Essential hypertension [I10] 11/19/2019 Encounter Status:Closed by CATHLEEN OLIVA CNP on 01/07/21 Normal [facility] C-Reactive Proteinon 019 CRP mass conc 20.5 mg/L High 0.0-9.0 [facility] CBC with Differentialon 04-12 Basophils #/vol (Bld) 0.0 thou/mcL Normal 0.0-0.2 M [facility] Basophils/100 WBC (Bld) 0.4 % Normal 0-3 M [facility] Differential cell count method Nom (Bld) AUTOMATED DIFFERENTIAL Normal [facility] Eosinophils #/vol (Bld) 0.1 thou/mcL Normal 0.0-0.4 [facility] Eosinophils/100 WBC (Bld) 0.9 % Normal 0-7 [facility] Lymphocytes #/vol (Bld) 1.4 thou/mcL Normal 0.7-4.5 [facility] Lymphocytes/100 WBC (Bld) 17.4 % Normal 14-46 [facility] Monocytes #/vol (Bld) 0.8 thou/mcL Normal 0.1-1.0 M [facility] Monocytes/100 WBC (Bld) 10.1 % Normal 4-13 M [facility] Neutrophils #/vol (Bld) 5.7 thou/mcL Normal 1.5-7.8 [facility] Neutrophils/100 WBC (Bld) 71.2 % Normal 40-74 [facility] Erythrocyte distribution width Entitic volume (RBC) 13.8 % Normal 11.7-15.0 [facility] Hematocrit Volume Fraction (Bld) 41.3 % Normal 34.0-50.0 [facility] Hemoglobin mass conc (Bld) 13.7 g/dL Normal 11.5-17.0 [facility] MCH Entitic mass (RBC) 31.7 Picograms Normal 27.0-34.0 [facility] MCHC mass conc (RBC) 33.2 g/dL Normal 32.0-36.0 [facility] MCV Entitic volume (RBC) 95.5 fL Normal 80-98 [facility] Platelet mean volume Entitic volume (Bld) 8.4 fL Normal 7.5-11.2 [facility] Platelets #/vol (Bld) 321 thou/mcL Normal 140-415 M [facility] RBC #/vol (Bld) 4.32 x(10)6/mcL Normal 3.80-5.60 [facility] WBC #/vol (Bld) 8.0 thou/mcL Normal 4.0-10.5 [facility] D-Dimer Semi-Quanton 019 Fibrin D-dimer Qn (PPP) 187 Normal M [facility] Comment on above: Result Comment: Refe rence range: 150 to 230 Unit: NG/ML (NOTE) NORMAL REFERENCE RANGE 150-230 NG/ML CUT OFF 230 NG/ML At this cut off level the negative predictive value for this test is 96-100% for venous thromboembolism(VTE) in patients with a low pre-test probability of deep vein thrombosis(DVT)/pulmonary embolism(PE). Clinical correlation is essential. When utilizing this test to rule out DVT or PE, this test is best used in the Emergency Department setting. These units correspond to ng/mL of D-DU or D-Dimer Units. Sedimentation Rate rbcon ESR Velocity (Bld) 55 mm/h High 0-20 [facility] Vital Signs Date Time Vital Sign Value Performing Clinician Ottonieli marty 01-27-2025 15:50-0400 Body temperature 98.1 [degF] Karlie Campos PT Work Phone: [facility] 01-27-2025 15:50-0400 Diastolic blood pressure 72 mm[Hg] Karlie Campos PT Work Phone: [facility] 01-27-2025 15:50-0400 Respiratory rate 16 /min Karlie Campos PT Work Phone: [facility] 01-27-2025 15:50-0400 Systolic blood pressure 122 mm[Hg] Karlie BabcockEdith PT Work Phone: [facility] 01-23-2025 18:13-0400 Body temperature 98.3 [degF] Dr. Josue Aguilera MD Work Phone: [facility] 01-23-2025 18:13-0400 Diastolic blood pressure 71 mm[Hg] Dr. Josue Aguilera MD Work Phone: [facility] 01-23-2025 18:13-0400 Heart rate 81 /min Dr. Josue Aguilera MD Work Phone: [facility] 01-23-2025 18:13-0400 Respiratory rate 18 /min Dr. Josue Aguilera MD Work Phone: [facility] 01-23-2025 18:13-0400 SaO2% (BldA) [Mass fraction] 98 % Dr. Josue Aguilera MD Work Phone: [facility] 01-23-2025 18:13-0400 Systolic blood pressure 140 mm[Hg] Dr. Josue Aguilera MD Work Phone: [facility] 01-23-2025 15:25-0400 Body height 177.[address] Josue Aguilera MD Work Phone: [facility] 01-20-2025 12:46-0400 Body temperature 98.6 [degF] Shelly Cooper [employer]O DAMAGE TRA[employer]EE Work Phone: [facility] 01-20-2025 12:46-0400 Diastolic blood pressure 60 mm[Hg] Shelly Cooper [employer]O DAMAGE TRAINEE Work Phone: [facility] 01-20-2025 12:46-0400 Heart rate 70 /min Shelly Cooper [employer]O DAMAGE TRAINEE Work Phone: [facility] 01-20-2025 12:46-0400 Respiratory rate 18 /min Shelly Cooper [employer]O DAMAGE TRAINEE Work Phone: [facility] 01-20-2025 12:46-0400 SaO2% (BldA) [Mass fraction] 99 % Shelly Cooper [employer]O DAMAGE TRAINEE Work Phone: [facility] 01-20-2025 12:46-0400 Systolic blood pressure 118 mm[Hg] Shelly Cooper [employer]O DAMAGE TRAINEE Work Phone: [facility] 01-15-2025 16:00-0500 Body temperature 98.6 [degF] Shelly Cooper [employer]O DAMAGE TRAINEE Work Phone: [facility] 01-15-2025 16:00-0500 Diastolic blood pressure 70 mm[Hg] Shelly Cooper AUTO DAMAGE TRAINEE Work Phone: [facility] 01-15-2025 16:00-0500 Heart rate 60 /min Shelly Cooper AUTO DAMAGE TRAINEE Work Phone: [facility] 01-15-2025 16:00-0500 Respiratory rate 18 /min Shelly Cooper [employer]O DAMAGE TRAINEE Work Phone: [facility] 01-15-2025 16:00-0500 SaO2% (BldA) [Mass fraction] 99 % Shelly Cooper AUTO DAMAGE TRAINEE Work Phone: [facility] 01-15-2025 16:00-0500 Systolic blood pressure 118 mm[Hg] Shelly Cooper [employer]O DAMAGE TRAINEE Work Phone: [facility] 01-15-2025 09:05-0500 Body mass index (BMI) [Ratio] 26.98 kg/m2 Michaela Suppan CENTRAL SU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.OB/GYN DOCTOR Work Phone: [facility] 01-15-2025 09:05-0500 Body temperature 97.9 [degF] Michaela Suppan CENTRAL SU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.OB/GYN DOCTOR Work Phone: [facility] 01-15-2025 09:05-0500 Body weight 85.28 kg Michaela Suppan CENTRAL SU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.OB/GYN DOCTOR Work Phone: [facility] 01-15-2025 09:05-0500 Diastolic blood pressure 68 mm[Hg] Michaela Suppan CENTRAL SU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.OB/GYN DOCTOR Work Phone: [facility] 01-15-2025 09:05-0500 Heart rate 64 /min Michaela Suppan CENTRAL SU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.OB/GYN DOCTOR Work Phone: [facility] 01-15-2025 09:05-0500 SaO2% (BldA) [Mass fraction] 97 % Michaela Suppalyssa CENTRAL SU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.OB/GYN DOCTOR Work Phone: [facility] 01-15-2025 09:05-0500 Systolic blood pressure 116 mm[Hg] Michaela Suppalyssa CENTRAL SU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.OB/GYN DOCTOR Work Phone: [facility] 01-13-2025 12:39-0500 Body temperature 98.49 [degF] Shelly Cooper AUTO DAMAGE TRAINEE Work Phone: [facility] 01-13-2025 12:39-0500 Diastolic blood pressure 72 mm[Hg] Shelly Cooper AUTO DAMAGE TRAINEE Work Phone: [facility] 01-13-2025 12:39-0500 Heart rate 66 /min Shelly Cooper AUTO DAMAGE TRAINEE Work Phone: [facility] 01-13-2025 12:39-0500 Respiratory rate 18 /min Shelly Cooper AUTO DAMAGE TRAINEE Work Phone: [facility] 01-13-2025 12:39-0500 SaO2% (BldA) [Mass fraction] 99 % Shelly Cooper AUTO DAMAGE TRAINEE Work Phone: [facility] 01-13-2025 12:39-0500 Systolic blood pressure 122 mm[Hg] Shelly Cooper AUTO DAMAGE TRAINEE Work Phone: [facility] 01-09-2025 10:53-0500 Body temperature 98.2 [degF] Shelly Cooper AUTO DAMAGE TRAINEE Work Phone: [facility] 01-09-2025 10:53-0500 Diastolic blood pressure 68 mm[Hg] Shelly Cooper AUTO DAMAGE TRAINEE Work Phone: [facility] 01-09-2025 10:53-0500 Heart rate 57 /min Shelly Cooper AUTO DAMAGE TRAINEE Work Phone: [facility] 01-09-2025 10:53-0500 Respiratory rate 18 /min Shelly Cooper AUTO DAMAGE TRAINEE Work Phone: [facility] 01-09-2025 10:53-0500 SaO2% (BldA) [Mass fraction] 99 % Shelly Cooper AUTO DAMAGE TRAINEE Work Phone: [facility] 01-09-2025 10:53-0500 Systolic blood pressure 118 mm[Hg] Shelly Cooper AUTO DAMAGE TRAINEE Work Phone: [facility] 01-09-2025 09:13-0500 Diastolic blood pressure 80 mm[Hg] Corry Gerstenslager OT Work Phone: [facility] 01-09-2025 09:13-0500 Heart rate 75 /min Corry Gerstenslager O T Work Phone: [facility] 01-09-2025 09:13-0500 SaO2% (BldA) [Mass fraction] 97 % Corry Gerstenslager OT Work Phone: [facility] 01-09-2025 09:13-0500 Systolic blood pressure 120 mm[Hg] Corry Gerstenslager OT Work Phone: [facility] 01-09-2025 08:36-0500 Body temperature 97.5 [degF] Corry Gerstenslager O T Work Phone: [facility] 01-07-2025 08:55-0500 Body temperature 97.5 [degF] Karlie Campos PT Work Phone: [facility] 01-07-2025 08:55-0500 Diastolic blood pressure 76 mm[Hg] Karlie Campos PT Work Phone: [facility] 01-07-2025 08:55-0500 Heart rate 58 /min Karlie Campos PT Work Phone: [facility] 01-07-2025 08:55-0500 Respiratory rate 16 /min Karlie Campos PT Work Phone: [facility] 01-07-2025 08:55-0500 SaO2% (BldA) [Mass fraction] 98 % Karlie Campos PT Work Phone: [facility] 01-07-2025 08:55-0500 Systolic blood pressure 124 mm[Hg] Karlie Campos PT Work Phone: [facility] 12-10-2024 10:42-0500 Body height 177.8 cm Pacc 1 Work Phone: [facility] 12-10-2024 10:42-0500 Body mass index (BMI) [Ratio] 27.12 kg/m2 Pacc 1 Work Phone: [facility] 12-10-2024 10:42-0500 Body temperature 97.59 [degF] Pacc 1 Work Phone: [facility] 12-10-2024 10:42-0500 Body weight 85.73 kg Pacc 1 Work Phone: [facility] 12-10-2024 10:42-0500 Diastolic blood pressure 82 mm[Hg] Pacc 1 Work Phone: [facility] 12-10-2024 10:42-0500 Heart rate 58 /min Pacc 1 Work Phone: [facility] 12-10-2024 10:42-0500 Respiratory rate 14 /min Pacc 1 Work Phone: [facility] 12-10-2024 10:42-0500 SaO2% (BldA) [Mass fraction] 97 % Pacc 1 Work Phone: [facility] 12-10-2024 10:42-0500 Systolic blood pressure 118 mm[Hg] Pacc 1 Work Phone: [facility] 11-28-2024 10:24-0500 Body height 177.8 cm Josue Aguilera MD Work Phone: [facility] 11-28-2024 10:24-0500 Body mass index (BMI) [Ratio] 27.2 kg/m2 Josue Aguilera MD Work Phone: [facility] 11-28-2024 10:24-0500 Body weight 86 kg Josue Aguilera MD Work Phone: [facility] 11-28-2024 10:24-0500 Diastolic blood pressure 74 mm[Hg] Josue Aguilera MD Work Phone: [facility] 11-28-2024 10:24-0500 Heart rate 68 /min Josue Aguilera MD Work Phone: [facility] 11-28-2024 10:24-0500 SaO2% (BldA) [Mass fraction] 96 % Josue Aguilera MD Work Phone: [facility] 11-28-2024 10:24-0500 Systolic blood pressure 124 mm[Hg] Josue Aguilera MD Work Phone: [facility] 09-02-2024 09:22-0400 Body mass index (BMI) [Ratio] 26.86 kg/m2 Michaela Suppan CENTRAL SU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.OB/GYN DOCTOR Work Phone: [facility] 09-02-2024 09:22-0400 Body weight 84.9 kg Michaela Suppan CENTRAL SU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.OB/GYN DOCTOR Work Phone: [facility] 09-02-2024 09:22-0400 Diastolic blood pressure 68 mm[Hg] Michaela Suppan CENTRAL SU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.OB/GYN DOCTOR Work Phone: [facility] 09-02-2024 09:22-0400 Heart rate 63 /min Michaela Suppan CENTRAL SU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.OB/GYN DOCTOR Work Phone: [facility] 09-02-2024 09:22-0400 Respiratory rate 16 /min Michaela Suppan CENTRAL SU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.OB/GYN DOCTOR Work Phone: [facility] 09-02-2024 09:22-0400 SaO2% (BldA) [Mass fraction] 97 % Michaela Suppan CENTRAL SU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.OB/GYN DOCTOR Work Phone: [facility] 09-02-2024 09:22-0400 Systolic blood pressure 120 mm[Hg] Michaela Suppan CENTRAL SU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.OB/GYN DOCTOR Work Phone: [facility] 06-02-2024 10:06-0400 Diastolic blood pressure 60 mm[Hg] Michaela Suppan CENTRAL SU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.OB/GYN DOCTOR Work Phone: [facility] 06-02-2024 10:06-0400 Systolic blood pressure 120 mm[Hg] Michaela Suppan CENTRAL SU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.OB/GYN DOCTOR Work Phone: [facility] 06-02-2024 09:44-0400 Body mass index (BMI) [Ratio] 27.55 kg/m2 Michaela Suppan CENTRAL SU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.OB/GYN DOCTOR Work Phone: [facility] 06-02-2024 09:44-0400 Body weight 87.09 kg Michaela Suppan CENTRAL SU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.OB/GYN DOCTOR Work Phone: [facility] 06-02-2024 09:44-0400 Heart rate 47 /min Michaela Suppan CENTRAL SU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.OB/GYN DOCTOR Work Phone: [facility] 06-02-2024 09:44-0400 SaO2% (BldA) [Mass fraction] 97 % Michaela Suppan CENTRAL SU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.OB/GYN DOCTOR Work Phone: [facility] 05-28-2024 10:39-0400 Diastolic blood pressure 70 mm[Hg] Josue Aguilera MD Work Phone: [facility] 05-28-2024 10:39-0400 Systolic blood pressure 130 mm[Hg] Josue Aguilera MD Work Phone: [facility] 05-28-2024 09:56-0400 Body mass index (BMI) [Ratio] 27.41 kg/m2 Josue Aguilera MD Work Phone: [facility] 05-28-2024 09:56-0400 Body weight 86.64 kg Josue Aguilera MD Work Phone: [facility] 05-28-2024 09:56-0400 Heart rate 65 /min Josue Aguilera MD Work Phone: [facility] 05-28-2024 09:56-0400 SaO2% (BldA) [Mass fraction] 96 % Josue Aguilera MD Work Phone: [facility] 10-03-2023 09:29-0500 Body weight 87.54 kg Josue Aguilera MD Work Phone: [facility] 10-03-2023 09:29-0500 Diastolic blood pressure 82 mm[Hg] Josue Aguilera MD Work Phone: [facility] 10-03-2023 09:29-0500 Heart rate 64 /min Josue Aguilera MD Work Phone: [facility] 10-03-2023 09:29-0500 SaO2% (BldA) [Mass fraction] 98 % Josue Aguilera MD Work Phone: [facility] 10-03-2023 09:29-0500 Systolic blood pressure 122 mm[Hg] Josue Aguilera MD Work Phone: [facility] 03-14-2023 10:16-0400 Body height 177.8 cm Josue Aguilera MD Work Phone: [facility] 03-14-2023 10:16-0400 Body weight 88.45 kg Josue Aguilera MD Work Phone: [facility] 03-14-2023 10:16-0400 Diastolic blood pressure 64 mm[Hg] Josue Aguilera MD Work Phone: [facility] 03-14-2023 10:16-0400 Heart rate 51 /min oJsue Aguilera MD Work Phone: [facility] 03-14-2023 10:16-0400 SaO2% (BldA) [Mass fraction] 97 % Josue Aguilera MD Work Phone: [facility] 03-14-2023 10:16-0400 Systolic blood pressure 100 mm[Hg] Josue Aguilera MD Work Phone: [facility] 01-08-2023 09:58-0500 Body weight 88.91 kg Son Banks MD Work Phone: [facility] 01-08-2023 09:58-0500 Diastolic blood pressure 80 mm[Hg] Son Banks MD Work Phone: [facility] 01-08-2023 09:58-0500 Heart rate 50 /min Son Banks MD Work Phone: [facility] 01-08-2023 09:58-0500 SaO2% (BldA) [Mass fraction] 99 % Son Banks MD Work Phone: [facility] 01-08-2023 09:58-0500 Systolic blood pressure 142 mm[Hg] Son Banks MD Work Phone: [facility] 09-14-2022 09:10-0400 Diastolic blood pressure 70 mm[Hg] Josue Aguilera MD Work Phone: [facility] 09-14-2022 09:10-0400 Systolic blood pressure 138 mm[Hg] Josue Aguilera MD Work Phone: [facility] 09-14-2022 08:50-0400 Body height 177.8 cm Josue Aguilera MD Work Phone: [facility] 09-14-2022 08:50-0400 Body weight 86.18 kg Josue Aguilera MD Work Phone: [facility] 09-14-2022 08:50-0400 Heart rate 61 /min Josue Aguilera MD Work Phone: [facility] 09-14-2022 08:50-0400 SaO2% (BldA) [Mass fraction] 99 % Josue Aguilera MD Work Phone: [facility] 06-20-2022 05:41-0400 Diastolic blood pressure 75 mm[Hg] [facility] Work Phone: 06-20-2022 05:41-0400 Heart rate 50 /min [facility] Work Phone: 06-20-2022 05:41-0400 Respiratory rate 15 /min [facility] Work Phone: 06-20-2022 05:41-0400 SaO2% (BldA) [Mass fraction] 99 % [facility] Work Phone: 06-20-2022 05:41-0400 Systolic blood pressure 154 mm[Hg] [facility] Work Phone: 06-20-2022 [id number] Body height 177.8 cm [facility] Work Phone: 06-20-2022 02:11-0400 Body mass index (BMI) [Ratio] 28.5 kg/m2 [facility] Work Phone: 06-20-2022 02:11-0400 Body temperature 98.7 [degF] [facility] Work Phone: 06-20-2022 02:11-0400 Body weight 90.12 kg [facility] Work Phone: 03-13-2022 10:24-0400 Body weight 88.91 kg Josue Aguilera MD Work Phone: [facility] 03-13-2022 10:24-0400 Diastolic blood pressure 64 mm[Hg] Josue Aguilera MD Work Phone: [facility] 03-13-2022 10:24-0400 Heart rate 52 /min Josue Aguilera MD Work Phone: [facility] 03-13-2022 10:24-0400 Systolic blood pressure 128 mm[Hg] Josue Aguilera MD Work Phone: [facility] Encounters Encounter Date Encounter Type Care Provider Facility Start: 04-02-2025 End: 04-02-2025 ambulatory RAVIN HOUGH Facility:[facility] Start: 03-27-2025 End: 03-27-2025 Orders Only Ravin Hough MD Work Phone: Orthopaedics Comment on above: Status post left hip replacement (Primary Dx) Start: 02-04-2025 End: 02-04-2025 ambulatory Marcos West RN Work Phone: [employer] Start: 02-04-2025 End: 02-04-2025 Telephone follow-up Marcos West RN Work Phone: [employer] Comment on above: Transition Of Care ( Follow up) Weekly phone contact (Recurring) for Transitional Care Management, Started Weekly phone contact (Recurring) for Transitional Care Management Start: 2025 End: 2025 Patient encounter procedure Ravin Hough MD Work Phone: Orthopaedics Comment on above: Pain in left hip (Pr imary Dx) Start: 2025 End: 01-30-2025 ambulatory RAVIN HOUGH Facility:[facility] Start: 2025 End: 2025 Subsequent hospital visit by physician [facility] Comment on above: oa Start: 01-28-2025 End: 01-28-2025 Patient Outreach Kiana Hussein RN [employer] Comment on above: Started Weekly phone contact (Recurring) for Transitional Care Management Start: 01-27-2025 End: 01-27-2025 Home visit Karlie Campos PT Work Phone: [facility] Comment on above: PT AGENCY DC W VISIT Start: 01-23-2025 End: 01-23-2025 Emergency department patient visit Josue [place] Facility:[facility] Start: 01-20-2025 End: 01-20-2025 ambulatory Marcos West RN Work Phone: [employer] Start: 01-20-2025 End: 01-20-2025 Telephone follow-up Marcos West RN Work Phone: [employer] Comment on above: Transition Of Care ( Follow up) Weekly phone contact (Recurring) for Transitional Care Management Start: 01-20-2025 End: 01-20-2025 Home visit Shelly Gamboa AUTO DAMAGE TRAINEE Work Phone: [facility] Comment on above: AUTO DAMAGE TRAINEE ROUTINE Start: 01-15-2025 End: 01-15-2025 Home visit Shelly Gamboa AUTO DAMAGE TRAINEE Work Phone: [facility] Comment on above: AUTO DAMAGE TRAINEE ROUTINE Start: 01-15-2025 End: 01-15-2025 ambulatory MICHAELA A SUPPAN Facility:[facility] Start: 01-15-2025 End: 01-15-2025 Office outpatient visit 25 minutes Michaela A Suppan CENTRAL SU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.OB/GYN DOCTOR Work Phone: [facility] [place] Comment on above: Coronary artery dise ase involving [place] coronary artery of [place] heart without angina pectoris (Primary Dx); Screening for diabetic retinopathy; Hypothyroidism, unspecified type; Essential hypertension; Left hip pain; Controlled type 2 diabetes mellitus without complication, without long-term current use of insulin (HCC) Start: 01-13-2025 End: 01-13-2025 Home visit Shelly Gamboa [employer]O DAMAGE TRAINEE Work Phone: [facility] Comment on above: AUTO DAMAGE TRAINEE ROUTINE Start: 01-09-2025 End: 01-09-2025 Home visit Corry Luz OT Work Phone: [facility] Comment on above: OT EVAL [employer] DAMAGE TRAINEE ROUTINE Start: 01-08-2025 End: 01-08-2025 Home visit Paige Sanchez RN Work Phone: [facility] Comment on above: CARE COORDINATION Start: 01-07-2025 End: 01-07-2025 Home visit Karlie Campos PT Work Phone: [facility] Comment on above: PT SOC Start: 01-06-2025 End: 01-06-2025 Patient Outreach Marcos West RN Work Phone: [employer] Comment on above: Transition Of Care ( Initial) Initial phone contact for Transitional Care Management Start: 01-05-2025 End: 01-06-2025 ambulatory Josue Aguilera MD Work Phone: [facility] [place] Comment on above: Schedule ear, nose, throat Start: 01-01-2025 End: 01-02-2025 Telephone encounter Jonathan Davalos [facility] Comment on above: Home Care (Confirmat ion Call) Start: 12-31-2024 End: 01-05-2025 Evaluation and management of inpatient KEITH SOTO Facility:[facility] Start: 12-29-2024 End: 12-29-2024 Telephone encounter Shanta Roberson [facility] Case Management/Social Work Comment on above: Assessment Start: 12-10-2024 Encounter for other preprocedural examination JOSUE AGUILERA [facility] Start: 12-10-2024 End: 12-10-2024 Admission to establishment [facility] [place] [facility] Work Phone: Pre Anesthesia Start: 12-10-2024 End: 12-10-2024 ambulatory MICHAELA HEART Facility:[facility] Start: 12-10-2024 End: 12-10-2024 [facility] Work Phone: Pre Anesthesia Comment on above: Pre-operative examin ation (Primary Dx); 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[place] coronary artery of tohono [place] heart without angina pectoris; Essential hypertension; Other hyperlipidemia; Sinus bradycardia; Controlled type 2 diabetes mellitus without complication, without long-term current use of insulin (HCC); Hypothyroidism, unspecified type; Thyroid nodule; History of subarachnoid hemorrhage; Status post total bilateral knee replacement; Dysmetabolic syndrome; Nodular prostate without urinary obstruction Start: 12-10-2024 End: 12-10-2024 [facility] Work Phone: [facility] Work Phone: Start: 11-29-2024 End: 11-29-2024 Telephone encounter Josue Aguilera MD Work Phone: [facility] Comment on above: Results (influenza) Start: 11-28-2024 End: 11-28-2024 Patient encounter procedure Josue Aguilera MD Work Phone: [facility] Comment on above: History of subarachn oid hemorrhage (Primary Dx); S/P right coronary artery (RCA) stent placement; 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[place] coronary artery of tohono [place] heart without angina pectoris; Essential hypertension; Other hyperlipidemia; Hypothyroidism, unspecified type; Thyroid nodule; Controlled type 2 diabetes mellitus without complication, without long-term current use of insulin (HCC); URI, acute Start: 11-28-2024 End: 11-28-2024 ambulatory JOSUE AGUILERA Facility:[facility] Start: 11-10-2024 End: 11-10-2024 Admission to same day surgery center Ravin Hough MD Work Phone: Orthopaedics Comment on above: Schedule Surgery Start: 11-10-2024 End: 11-10-2024 ambulatory Ravin Hough MD Work Phone: Orthopaedics Start: 10-07-2024 End: 10-07-2024 ambulatory MICHAELA Niki SHEAAN Facility:[facility] Start: 10-07-2024 End: 10-07-2024 Patient encounter procedure Ravin Hough MD Work Phone: Orthopaedics Comment on above: Primary osteoarthrit is of left hip (Primary Dx); Status post left hip replacement Start: 10-06-2024 End: 10-06-2024 Refill Michaela A Suppan CENTRAL SU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.OB/GYN DOCTOR Work Phone: [facility] [place] Comment on above: Refill Request Start: 09-08-2024 End: 09-08-2024 ambulatory Michaela A Suppan CENTRAL SU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.OB/GYN DOCTOR Work Phone: [facility] [place] Comment on above: Hip Replacement Start: 09-08-2024 End: 09-08-2024 Telephone encounter Michaela Sheaan CENTRAL SU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.OB/GYN DOCTOR Work Phone: [facility] [place] Start: 09-02-2024 End: 09-02-2024 Subsequent hospital visit by physician [facility] [place] Work Phone: Radiology Comment on above: Left hip pain [M25.5 52] Start: 09-02-2024 End: 09-02-2024 ambulatory JOSUE AGUILERA Facility:[facility] Start: 09-02-2024 End: 09-02-2024 Office outpatient visit 15 minutes Michaela A Shabbiran CENTRAL SU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.OB/GYN DOCTOR Work Phone: [facility] [place] Comment on above: Left hip pain (Prima ry Dx); Acute pain of left knee; Left knee pain, unspecified chronicity; Controlled type 2 diabetes mellitus without complication, without long-term current use of insulin (HCC); Other specified hypothyroidism Start: 09-01-2024 End: 09-01-2024 ambulatory Josue Aguilera MD Work Phone: [facility] [place] Comment on above: Extreme hip pain Start: 07-24-2024 End: 07-29-2024 ambulatory Michaela A Suppan CENTRAL SU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.OB/GYN DOCTOR Work Phone: [facility] [place] Comment on above: Labs Start: 07-02-2024 End: 07-02-2024 Telephone encounter Josue Aguilera MD Work Phone: [facility] [place] Comment on above: Patient Question Start: 07-01-2024 End: 07-01-2024 Refill Josue Aguilera MD Work Phone: [facility] [place] Comment on above: Refill Request Start: 06-02-2024 End: 06-02-2024 Office outpatient visit 15 minutes 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 Work Phone: [facility] [place] Comment on above: Controlled type 2 di abetes mellitus without complication, without long-term current use of insulin (HCC) (Primary Dx); Encounter for immunization Start: 06-02-2024 End: 06-02-2024 ambulatory JOSUE WILLY Facility:[facility] Start: 05-29-2024 Telephone encounter [facility] Comment on above: Results Start: 05-28-2024 End: 05-28-2024 ambulatory JOSUE WILLY Facility:[facility] Start: 05-28-2024 End: 05-28-2024 Patient encounter procedure Josue Aguilera MD Work Phone: [facility] [place] Comment on above: S/P right coronary a rtery (RCA) stent placement (Primary Dx); 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[place] coronary artery of tohono [place] heart without angina pectoris; Essential hypertension; Hypothyroidism, unspecified type; Dysmetabolic syndrome; Subarachnoid bleed (HCC); Other hyperlipidemia; Screening for colon cancer; Impacted cerumen of left ear Start: 01-18-2024 Telephone encounter Josue Aguilera MD Work Phone: [facility] [place] Comment on above: Patient Request Start: 10-04-2023 Telephone encounter Josue Aguilera MD Work Phone: [facility] [place] Start: 10-03-2023 Telephone encounter Josue Aguilera MD Work Phone: [facility] [place] Comment on above: Results Start: 10-03-2023 End: 10-03-2023 Patient encounter procedure Josue Aguilera MD Work Phone: Family Medicine [place] Comment on above: Other hyperlipidemia (Primary Dx); Hypothyroidism, unspecified type; 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[place] coronary artery of tohono [place] heart without angina pectoris; Essential hypertension; Dysmetabolic syndrome; Nodular prostate without urinary obstruction; URI, acute Start: 04-25-2023 ambulatory Joleen Rich MA [facility] Comment on above: Population Health Na vigation Outreach ([employer] Gaps 5.30.23) Start: 03-14-2023 End: 03-14-2023 Patient encounter procedure Josue Aguilera MD Work Phone: Family Medicine [place] Comment on above: Coronary artery dise ase involving tohono [place] coronary artery of tohono [place] heart without angina pectoris (Primary Dx); Essential hypertension; Hypothyroidism, unspecified type; Hyperglycemia Start: 03-12-2023 End: 03-12-2023 Subsequent hospital visit by physician [facility] Work Phone: Nuclear Medicine Comment on above: Coronary artery dise ase involving tohono [place] coronary artery of tohono [place] heart without angina pectoris [I25.10] Start: 01-08-2023 End: 01-08-2023 Patient encounter procedure Son Banks MD Work Phone: Cardiology Comment on above: Coronary artery dise ase involving tohono [place] coronary artery of tohono [place] heart without angina pectoris (Primary Dx); Essential hypertension; Other hyperlipidemia Refill Request Start: 10-18-2022 Refill Josue Aguilera MD Work Phone: Family [facility] [place] Comment on above: Refill Request Start: 09-14-2022 End: 09-14-2022 Subsequent hospital visit by physician [facility] [place] Work Phone: Radiology Comment on above: Lumbar pain [M54.50] Start: 09-14-2022 End: 09-14-2022 Patient encounter procedure Josue Aguilera MD Work Phone: Family [facility] [place] Comment on above: Primary hypertension (Primary Dx); Hypothyroidism, unspecified type; Essential hypertension; Dysmetabolic syndrome; 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[place] coronary artery of tohono [place] heart without angina pectoris; Lumbar pain Start: 07-20-2022 Refill Josue Aguilera MD Work Phone: [facility] Comment on above: Refill Request Start: 06-20-2022 End: 06-20-2022 Emergency department patient visit [facility] Start: 03-13-2022 End: 03-13-2022 Patient encounter procedure Josue Aguilera MD Work Phone: [facility] Comment on above: Hypothyroidism, unsp ecified type (Primary Dx); Other hyperlipidemia; 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[place] coronary artery of tohono [place] heart without angina pectoris; Dysmetabolic syndrome; Essential hypertension Start: 05-20-2021 End: 05-20-2021 Subsequent hospital visit by physician [facility] Work Phone: Radiology Comment on above: Foot pain, right [M7 9.671] Start: 03-07-2021 End: 03-07-2021 Subsequent hospital visit by physician [facility] Work Phone: Radiology Comment on above: Acute pain of right shoulder [M25.511] Start: 07-17-2007 End: 06-14-2016 Patient encounter status Josue Aguilera MD Work Phone: [facility] Procedures Date Procedure Procedure Detail Performing Clinician Start: 01-23-2025 Plain chest X-ray Dr. Braeden Aguilera MD Work Phone: Start: 12-10-2024 Ecg routine ecg w/le ast 12 lds i&r only [facility] Provider Start: 12-10-2024 Antibody screen JOSUE AGUILERA Comment on above: Order Comment: Speci men Type: BLOOD SPECIMEN Ordering Facility: [facility] Address: [address] [place] [address] Performed By: #### T SCR30 #### CC MAIN BLOOD BANK [facility] [id number] [address] [place] [address] [place] Start: 06-02-2024 [facility] COVID-19 VACCINE ( SEASON) AGE 12+ YR Michaela Heart APRN.OB/GYN DOCTOR Work Phone: Start: 05-28-2024 Adult depression screening assessment 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 Work Phone: Start: 03-12-2023 Myocardial spect multiple studies Son Banks MD Work Phone: Start: 09-14-2022 Radex spine lumbosac ral 2/3 views Josue Aguilera MD Work Phone: Start: 06-20-2022 Plain chest X-ray Start: 03-11-2022 Adult depression screening assessment Josue Aguilera MD Work Phone: Start: 05-20-2021 Radex calcaneus mini mum 2 views Guevara Ybarra CENTRAL SU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.OB/GYN DOCTOR Work Phone: Start: 03-07-2021 Radex shoulder compl ete minimum 2 views Josue Aguilera MD Work Phone: Start: 06-22-2016 History of placement of stent for coronary artery disease S/P right coronary artery (RCA) stent placement Josue Aguilera MD Work Phone: Start: 01-14-2007 H/O: artificial joint Knee carlyn nt replacement by other means Josue Aguilera MD Work Phone: History of placement of stent for coronary artery disease S/P right coronary artery (RCA) stent placement Josue Aguilera MD Work Phone: History of placement of stent for coronary artery disease S/P right coronary artery (RCA) stent placement Josue Aguilera MD Work Phone: Plan of Treatment Date Care Activity Detail Author Start: 10-03-2027 Screening for malign ant neoplasm of colon Cologuard (FIT-DNA) [facility] Start: 05-28-2027 Diabetes Screening Diabetes Screenin [facility] Start: 11-19-2026 Diabetes Screening Diabetes Screenin [facility] Start: 10-02-2026 Diabetes Screening Diabetes Screenin g [facility] Start: 03-14-2026 DIABETES SCREEN DIABETES SCREEN [facility] Start: 03-14-2026 Diabetes Screening Diabetes Screenin g [facility] Start: 01-27-2026 BP Controlled (<130/80) BP Controlle d (<130/80) [facility] Start: 01-20-2026 BP Controlled (<130/80) BP Controlle d (<130/80) [facility] Start: 01-15-2026 Annual PCP Team Assistant Curator allyson Disease Visit Annual PCP Team Chronic Disease Visit [facility] Start: 01-15-2026 BP Controlled (<130/80) BP Controlle d (<130/80) [facility] Start: 01-09-2026 BP Controlled (<130/80) BP Controlle d (<130/80) [facility] Start: 01-07-2026 BP Controlled (<130/80) BP Controlle d (<130/80) [facility] Start: 12-10-2025 Hepatitis B screening Urine Albumin:Creatinine Ratio [facility] Start: 12-10-2025 Hepatitis B surface antibody level LDL Cholesterol [facility] Start: 11-28-2025 Annual PCP Team Assistant Curator allyson Disease Visit Annual PCP Team Chronic Disease Visit [facility] Start: 11-28-2025 BP Controlled (<130/80) BP Controlle d (<130/80) [facility] Start: 11-28-2025 Covid-19 Vaccine ( season) Covid-19 Vaccine ( season) [facility] Comment on above: Postponed from 07/28 (Declined at this time) Start: 11-28-2025 RSV Vaccine (1 - 1-d ose 75+ series) RSV Vaccine (1 - 1-dose 75+ series) [facility] Comment on above: Postponed from 01/29 (Declined at this time) Start: 09-14-2025 DIABETES SCREEN DIABETES SCREEN [facility] Start: 09-02-2025 BP Controlled (<130/80) BP Controlle d (<130/80) [facility] Start: 07-13-2025 Influenza vaccination Influenz a Vaccine (Season Ended) [facility] Start: 06-24-2025 End: 06-24-2025 Patient encounter procedure 06/24/2025 10:00 AM EDT Office Visit [facility] [place] [address] [place] [id number] Josue Aguilera MD [address] [place] [id number] Medicare Wellness [facility] Comment on above: Medicare Wellness Start: 06-09-2025 Hemoglobin A1c measurement HbA1C [facility] Start: 06-02-2025 BP Controlled (<130/80) BP Controlle d (<130/80) [facility] Start: 05-28-2025 Annual PCP Team Assistant Curator allyson Disease Visit Annual PCP Team Chronic Disease Visit [facility] Start: 05-28-2025 Anxiety Screening Anxiety Screening [facility] Start: 05-28-2025 Depression Screening Depression Scre ening [facility] Start: 05-11-2025 Influenza vaccination Influenza Vacc ine (#1) [facility] Comment on above: Postponed from 07/13 (Declined at this time) Start: 04-02-2025 End: 04-02-2025 Patient encounter procedure Radiology Comment on above: post op xray left hi p 3 Month Surgical pos t op Start: 03-17-2025 Glaucoma screening Dilated Retinal E xam [facility] Comment on above: Postponed from 01/29 (Currently Scheduled) Start: 2025 End: 2025 Patient encounter procedure Radiology Comment on above: post op xray left hi p Surgical post op Start: 01-23-2025 [facility] Start: 01-23-2025 [facility] Start: 01-15-2025 End: 01-15-2025 Patient encounter procedure Family Medicine [facility] Comment on above: llow-up hip replacem ent - get immunizations Start: 12-31-2024 End: 12-31-2024 Admission to same day surgery center 12/31/2024 12:55 PM EST - 12/31/2024 3:10 PM EST Surgery [facility] Operating Room [address] [place] [address] Ravin Hough MD [address] [place] [address] ARTHROPLASTY REPLACE JOINT TOTAL HIP [facility] Comment on above: ARTHROPLASTY REPLACE JOINT TOTAL HIP Start: 12-31-2024 End: 12-31-2024 Arthrp acetblr/prox fem prostc agrft/algrft ARTHROPLASTY REPLACE JOINT TOTAL HIP Primary osteoarthritis of left hip 12/31/2024 12:55 PM EST [facility] Start: 12-31-2024 Subsequent hospital visit by physician 12/31/2024 12:55 PM EST Hospital Encounter [facility] Operating Room [address] [place], [place] [phone] Ravin Hough MD [address] [place] [id number] Primary osteoarthritis of left hip [M16.12] [facility] Comment on above: Primary osteoarthrit is of left hip [M16.12] Start: 12-31-2024 End: 12-31-2024 Admission to same day surgery center 12/31/2024 7:30 AM EST - 12/31/2024 9:30 AM EST Surgery [facility] Operating Room [address] [place] [address] Ravin Hough MD [address] [place] [address] ARTHROPLASTY REPLACE JOINT TOTAL HIP [facility] Comment on above: ARTHROPLASTY REPLACE JOINT TOTAL HIP Start: 12-31-2024 End: 12-31-2024 Arthrp acetblr/prox fem prostc agrft/algrft ARTHROPLASTY REPLACE JOINT TOTAL HIP Primary osteoarthritis of left hip 12/31/2024 7:30 AM EST [facility] Start: 12-31-2024 Subsequent hospital visit by physician 12/31/2024 7:30 AM EST Hospital Encounter [facility] Operating Room [address] [place] [address] Ravin Hough MD [address] [place] [address] Primary osteoarthritis of left hip [M16.12] [facility] Comment on above: Primary osteoarthrit is of left hip [M16.12] Start: 12-10-2024 End: 03-11-2025 TYPE AND SCREEN,30 DAY [facility] Work Phone: Comment on above: Expected: 12/10/2024 , Expires: 03/11/2025 Start: 12-10-2024 End: 12-10-2024 Anesthesia consultation 12/10/2024 10:40 AM EST PAT Pre Anesthesia [address] [facility] [place] [address] 1, Pac [place] [address] [place] [address] dos 12/31 ARTHROPLASTY REPLACE JOINT TOTAL HIP [3131] - Hip - Left Pre Anesthesia Comment on above: dos 12/31 ARTHROPLAST Y REPLACE JOINT TOTAL HIP [3131] - Hip - Left Start: 12-03-2024 End: 03-04-2025 CBC W Auto Differential panel - Blood COMPLETE BLOOD COUNT AND DIFFERENTIAL Lab Routine Left hip pain Controlled type 2 diabetes mellitus without complication, without long-term current use of insulin (HCC) Expected: 12/03/2024, Expires: 03/04/2025 [facility] Comment on above: Expected: 12/03/2024 , Expires: 03/04/2025 Start: 12-03-2024 End: 03-04-2025 Comprehensive metabolic 2000 panel - Serum or Plasma COMPREHENSIVE METABOLIC PANEL Lab Routine Left hip pain Controlled type 2 diabetes mellitus without complication, without long-term current use of insulin (HCC) Expected: 12/03/2024, Expires: 03/04/2025 [facility] Comment on above: Expected: 12/03/2024 , Expires: 03/04/2025 Start: 12-03-2024 End: 03-04-2025 Hemoglobin A1c in Blood HEMOGLOBIN A1C Lab Routine Controlled type 2 diabetes mellitus without complication, without long-term current use of insulin (HCC) Expected: 12/03/2024, Expires: 03/04/2025 [facility] Comment on above: Expected: 12/03/2024 , Expires: 03/04/2025 Start: 12-03-2024 End: 03-04-2025 Lipid 1996 panel - Serum or Plasma LIPID PANEL BASIC Lab Routine Controlled type 2 diabetes mellitus without complication, without long-term current use of insulin (HCC) Expected: 12/03/2024, Expires: 03/04/2025 [facility] Comment on above: Expected: 12/03/2024 , Expires: 03/04/2025 Start: 12-03-2024 End: 03-04-2025 Magnesium [Mass/volume] in Serum or Plasma MAGNESIUM Lab Routine Controlled type 2 diabetes mellitus without complication, without long-term current use of insulin (HCC) Expected: 12/03/2024, Expires: 03/04/2025 [facility] Comment on above: Expected: 12/03/2024 , Expires: 03/04/2025 Start: 12-03-2024 End: 03-04-2025 Microalbumin/Creatinine [Mass Ratio] in Urine ALBUMIN/CREATININE RATIO, URINE Lab Routine Controlled type 2 diabetes mellitus without complication, without long-term current use of insulin (HCC) Expected: 12/03/2024, Expires: 03/04/2025 [facility] Comment on above: Expected: 12/03/2024 , Expires: 03/04/2025 Start: 12-03-2024 End: 03-04-2025 Thyrotropin [Units/volume] in Serum or Plasma THYROID STIMULATING HORMONE Lab Routine Other specified hypothyroidism Expected: 12/03/2024, Expires: 03/04/2025 [facility] Comment on above: Expected: 12/03/2024 , Expires: 03/04/2025 Start: 11-28-2024 Hemoglobin A1c measurement HbA1C [facility] Start: 11-28-2024 End: 11-28-2024 Patient encounter procedure 11/28/2024 10:20 AM EST Office Visit Family [facility] [place] [address] [place] [address] Josue Aguilera MD [address] [place] [address] 6 month follow up Family [facility] [place] Comment on above: 6 month follow up Start: 11-26-2024 Annual PCP Team Assistant Curator allyson Disease Visit Annual PCP Team Chronic Disease Visit [facility] Start: 10-07-2024 End: 10-07-2024 Patient encounter procedure 10/07/2024 1:00 PM EST Office Visit Orthopaedics [id number] [place] [id number] Ravin Hough MD [address] [address] Primary osteoarthritis of left hip [M16.12] Orthopaedics Comment on above: Primary osteoarthrit is of left hip [M16.12] Start: 10-04-2024 Screening for malign ant neoplasm of colon Colorectal Cancer Screening [facility] Start: 10-03-2024 Annual PCP Team Assistant Curator allyson Disease Visit Annual PCP Team Chronic Disease Visit [facility] Start: 10-03-2024 Covid-19 Vaccine ( season) Covid-19 Vaccine () [facility] Comment on above: Postponed from 07/13 (Declined at this time) Start: 10-03-2024 Covid-19 Vaccine () Covid-19 Vaccine () [facility] Start: 10-03-2024 RSV Vaccine (1 - 1-d ose 60+ series) RSV Vaccine (1 - 1-dose 60+ series) [facility] Comment on above: Postponed from 01/29 (Declined at this time) Start: 10-03-2024 RSV Vaccine (1 - 1-d ose 75+ series) RSV Vaccine (1 - 1-dose 75+ series) [facility] Comment on above: Postponed from 01/29 (Declined at this time) Start: 10-02-2024 Hepatitis B surface antibody level LDL Cholesterol [facility] Start: 09-20-2024 Screening for malign ant neoplasm of colon Cologuard (FIT-DNA) [facility] Start: 09-12-2024 DIABETES SCREEN DIABETES SCREEN [facility] Start: 09-02-2024 End: 10-02-2025 XR Pelvis and Hip - left AP and Lateral frog [facility] Work Phone: Comment on above: Expected: 09/02/2024 , Expires: 10/02/2025 Start: 09-02-2024 End: 09-02-2024 Patient encounter procedure 09/02/2024 10:00 AM EDT Office Visit Family [facility] [place] [address] [place], [place] [phone] Michaela Heart, CENTRAL SU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.OB/GYN DOCTOR [address] [facility] [place] [phone] 3 month DM follow up Family [facility] [place] Comment on above: 3 month DM follow up Start: 07-28-2024 Covid-19 Vaccine ( season) Covid-19 Vaccine () [facility] Start: 07-13-2024 Influenza vaccination Influenza Vacc ine (#1) [facility] Start: 06-02-2024 End: 06-02-2024 Patient encounter procedure 06/02/2024 10:00 AM EDT Office Visit [facility] [place] [address] [place], [place] [address] Michaela Heart APRN.OB/GYN DOCTOR [address] [place], [place] [phone] discuss new onset Diabetes [facility] [place] Comment on above: discuss new onset Di abetes Start: 05-28-2024 End: 08-27-2024 Thyrotropin [Units/volume] in Serum or Plasma [facility] Work Phone: Comment on above: Expected: 05/28/2024 , Expires: 08/27/2024 Start: 05-11-2024 Influenza vaccination Influenza Vacc ine (#1) [facility] Comment on above: Postponed from 07/13 (Declined at this time) Start: 03-14-2024 ANNUAL PCP TEAM RESPIRATORY CARE PROGRAM DIRECTOR [place] DISEASE VISIT ANNUAL PCP TEAM CHRONIC DISEASE VISIT [facility] Start: 03-14-2024 BP CONTROLLED (<130/80) BP CONTROLLE D (<130/80) [facility] Start: 02-19-2024 Colonoscopy COLONOSCOPY [facility] Start: 02-19-2024 COLORECTAL CANCER SCREENING COLORECTAL CANCER SCREENING [facility] Start: 02-19-2024 Screening for malign ant neoplasm of colon [facility] Start: 11-12-2023 Advance Directive Discussion Advance Directive Discussion [facility] Start: 11-12-2023 Behavioral Health Screening Behavioral Health Screening [facility] Start: 11-12-2023 Depression Assessment Depression Ass essment [facility] Start: 09-14-2023 ANNUAL PCP TEAM RESPIRATORY CARE PROGRAM DIRECTOR ALLYSON DISEASE VISIT ANNUAL PCP TEAM CHRONIC DISEASE VISIT [facility] Start: 09-14-2023 End: 11-14-2023 CBC W Auto Differential panel - Blood CBC + DIFF Lab Routine Essential hypertension Expected: 09/14/2023, Expires: 11/14/2023 [facility] Work Phone: Comment on above: Expected: 09/14/2023 , Expires: 11/14/2023 Start: 09-14-2023 End: 11-14-2023 Comprehensive metabolic 2000 panel - Serum or Plasma COMP METABOLIC PANEL Lab Routine Essential hypertension Expected: 09/14/2023, Expires: 11/14/2023 [facility] Work Phone: Comment on above: Expected: 09/14/2023 , Expires: 11/14/2023 Start: 09-14-2023 End: 11-14-2023 Hemoglobin A1c in Blood HGB A1C Lab Routine Hyperglycemia Expected: 09/14/2023, Expires: 11/14/2023 [facility] Work Phone: Comment on above: Expected: 09/14/2023 , Expires: 11/14/2023 Start: 09-14-2023 Hepatitis B surface antibody level LDL CHOLESTEROL [facility] Start: 09-14-2023 End: 11-14-2023 Lipid 1996 panel - Serum or Plasma LIPID PANEL BASIC Lab Routine Essential hypertension Expected: 09/14/2023, Expires: 11/14/2023 [facility] Work Phone: Comment on above: Expected: 09/14/2023 , Expires: 11/14/2023 Start: 09-14-2023 End: 11-14-2023 Thyrotropin [Units/volume] in Serum or Plasma TSH BLD Lab Routine Hypothyroidism, unspecified type Expected: 09/14/2023, Expires: 11/14/2023 [facility] Work Phone: Comment on above: Expected: 09/14/2023 , Expires: 11/14/2023 Start: 07-13-2023 Covid-19 Vaccine () Covid-19 Vaccine () [facility] Start: 07-13-2023 Influenza vaccination Influenza Vacc ine (#1) [facility] Start: 06-26-2023 BP CONTROLLED (<130/80) BP CONTROLLE D (<130/80) [facility] Start: 03-14-2023 End: 05-14-2023 Hemoglobin A1c in Blood [facility] Work Phone: Comment on above: Expected: 03/14/2023 , Expires: 05/14/2023 Start: 03-13-2023 ANNUAL PCP TEAM RESPIRATORY CARE PROGRAM DIRECTOR [place]YSON DISEASE VISIT ANNUAL PCP TEAM CHRONIC DISEASE VISIT [facility] Start: 03-13-2023 BP CONTROLLED (<130/80) BP CONTROLLE D (<130/80) [facility] Start: 03-11-2023 Adult depression screening assessment DEPRESSION SCREENING [facility] Start: 11-12-2022 ADVANCE DIRECTIVE DISCUSSION ADVANCE DIRECTIVE DISCUSSION [facility] Start: 11-12-2022 DEPRESSION ASSESSMENT DEPRESSION ASS ESSMENT [facility] Start: 09-13-2022 End: 03-13-2023 CBC W Auto Differential panel - Blood CBC + DIFF Lab Routine Essential hypertension Expected: 09/13/2022, Expires: 03/13/2023 [facility] Work Phone: Comment on above: Expected: 09/13/2022 , Expires: 03/13/2023 Start: 09-13-2022 End: 03-13-2023 Comprehensive metabolic 2000 panel - Serum or Plasma COMP METABOLIC PANEL Lab Routine Essential hypertension Expected: 09/13/2022, Expires: 03/13/2023 [facility] Work Phone: Comment on above: Expected: 09/13/2022 , Expires: 03/13/2023 Start: 09-13-2022 End: 11-13-2022 Hemoglobin A1c/Hemoglobin.total in Blood HGB A1C Lab Routine Dysmetabolic syndrome Expected: 09/13/2022, Expires: 11/13/2022 [facility] Work Phone: Comment on above: Expected: 09/13/2022 , Expires: 11/13/2022 Start: 09-13-2022 End: 03-13-2023 LIPID PANEL BASIC LIPID PANEL BASIC Lab Routine Essential hypertension Expected: 09/13/2022, Expires: 03/13/2023 [facility] Work Phone: Comment on above: Expected: 09/13/2022 , Expires: 03/13/2023 Start: 09-13-2022 End: 11-13-2022 Thyrotropin [Units/volume] in Serum or Plasma TSH BLD Lab Routine Hypothyroidism, unspecified type Expected: 09/13/2022, Expires: 11/13/2022 [facility] Work Phone: Comment on above: Expected: 09/13/2022 , Expires: 11/13/2022 Start: 09-12-2022 Hepatitis B surface antibody level LDL CHOLESTEROL [facility] Start: 07-13-2022 Influenza vaccination INFLUENZA (#1) [facility] Start: 06-20-2022 [facility] Work Phone: Start: 05-04-2022 COVID-19 VACCINE (5 - Booster for Pfizer series) COVID-19 VACCINE (5 - Booster for Pfizer series) [facility] Start: 10-06-2020 FECAL OCCULT BLOOD FECAL OCCULT BLOO D [facility] Start: 10-06-2020 Screening for malign ant neoplasm of colon Fecal Occult Blood [facility] Start: 01-30-2020 RSV Vaccine (1 - 1-d ose 75+ series) RSV Vaccine (1 - 1-dose 75+ series) [facility] Start: 07-09-2016 Urine microalbumin profile DTAP,TDAP,TD (2 - Td or Tdap) [facility] Start: 2005 RSV Vaccine (1 - 1-d ose 60+ series) RSV Vaccine (1 - 1-dose 60+ series) [facility] Start: 1995 SHINGRIX VACCINE (1 of 2) SHINGRIX VACCINE (1 of 2) [facility] Start: 1990 COLOGUARD (FIT-DNA) COLOGUARD (FIT-D NA) [facility] Start: [address] COLONOGRAPHY [facility] Start: 1990 Screening for malign ant neoplasm of colon [facility] Start: 1990 SIGMOIDOSCOPY SIGMOIDOSCOPY [facility] Start: 1963 BP CONTROLLED (<130/80) BP CONTROLLE D (<130/80) [facility] Start: 1963 Screening for malign ant neoplasm of colon Colonoscopy [facility] Start: 1955 Diabetic foot examination Diabetic Foot Exam [facility] Start: 1955 Glaucoma screening Dilated Retinal E xam [facility] Start: 1955 Hepatitis B screening Urine Albumin:Creatinine Ratio [facility] COLOGUARD COLOGUARD Lab Ro utine Screening for colon cancer Ordered: 05/28/2024 [facility] Comment on above: Ordered: 05/28/2024 COVID & INFLUENZA A/ B & RSV NAAT, ROUTINE COVID & INFLUENZA A/B & RSV NAAT, ROUTINE Microbiology Routine URI, acute 10/03/2023 10:12 AM [facility] Work Phone: COVID & INFLUENZA A/ B & RSV PCR, ROUTINE COVID & INFLUENZA A/B & RSV PCR, ROUTINE Microbiology Routine URI, acute 11/28/2024 10:59 AM [facility] Work Phone: End: 12-10-2025 ECG COMPLETE ECG COMPLETE ECG Routine Pre-operative examination 1 Occurrences starting 12/10/2024 until 12/10/2025 [facility] Comment on above: 1 Occurrences starti ng 12/10/2024 until 12/10/2025 ECG COMPLETE ECG COMPLETE ECG 12/10/2024 12:07 PM EST [facility] End: 02-07-2024 NM CARDIAC PERF STRESS/PHARM NM CARDIAC PERF STRESS/PHARM Radiology Routine 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 coronary artery of [place] heart without angina pectoris 1 Occurrences starting 01/08/2023 until 02/07/2024 [facility] Work Phone: Comment on above: 1 Occurrences starti ng 01/08/2023 until 02/07/2024 Patient Education ED Chest Pain, Noncardiac ED Chest Pain, Uncertain Cause [facility] Work Phone: Patient referral [facility] Work Phone: End: 10-14-2023 Radex spine lumbosacral 2/3 views XR LUMBAR GENERAL 3V AP/LAT/L5-S1 Radiology Routine Lumbar pain 1 Occurrences starting 09/14/2022 until 10/14/2023 [facility] Work Phone: Comment on above: 1 Occurrences starti ng 09/14/2022 until 10/14/2023 Radex spine lumbosac ral 2/3 views XR LUMBAR GENERAL 3V AP/LAT/L5-S1 Radiology Routine Lumbar pain 09/14/2022 9:37 AM EDT [facility] Work Phone: End: 10-02-2025 XR Knee - left 4 Views XR KNEE GENERAL 4V AP BOTH/PA BOTH/LAT/MERC LEFT Radiology Routine Left knee pain, unspecified chronicity 1 Occurrences starting 09/02/2024 until 10/02/2025 [facility] Comment on above: 1 Occurrences starti ng 09/02/2024 until 10/02/2025 XR Knee - left 4 Views XR KNEE G ENERAL 4V AP BOTH/PA BOTH/LAT/MERC LEFT Radiology Routine Left knee pain, unspecified chronicity 09/02/2024 10:30 AM EDT [facility] XR Pelvis and Hip - left AP and Lateral frog XR HIP GENERAL 3V PELV/AP/LAT LEFT Radiology Routine Primary osteoarthritis of left hip Status post left hip replacement 2025 3:09 PM EDT [facility] Work Phone: End: 04-26-2026 XR Pelvis and Hip - left AP and Lateral frog XR HIP GENERAL 3V PELV/AP/LAT LEFT Radiology Routine Status post left hip replacement 1 Occurrences starting 03/27/2025 until 04/26/2026 [facility] Work Phone: Comment on above: 1 Occurrences starti ng 03/27/2025 until 04/26/2026 [facility] Immunizations Immunization Date Immunization Notes Care Provider Bharat mims 06-02-2024 COVID-19 vaccine, ag e 12+ yr, 2022- season ([employer]) 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 Work Phone: [facility] 09-26-2022 influenza (HD-IIV4) vaccine, age 65+ yr, high dose, quadrivalent, PF (FLUZONE HIGH-DOSE) Josue Aguilera MD Work Phone: [facility] 09-26-2022 influenza virus vacc ine, unspecified formulation [facility] Work Phone: [facility] 03-09-2022 COVID-19 original vaccine, age 12+ yr, monovalent (PFIZER-BIONTECH - IRVIN TOP) Josue Aguilera MD Work Phone: [facility] 09-14-2021 COVID-19 original vaccine, age 12+ yr, monovalent (PFIZER-BIONTECH - PURPLE TOP) Josue Aguilera MD Work Phone: [facility] 09-12-2021 influenza, high-dose , quadrivalent vaccine (FLUZONE HIGH DOSE QUADRIVALENT) Josue Aguilera MD Work Phone: [facility] 01-27-2021 COVID-19 vaccine, ag e 12+ yr (PFIZER-BIONTECH - PURPLE TOP) Josue Aguilera MD Work Phone: [facility] 01-06-2021 COVID-19 vaccine, ag e 12+ yr (PFIZER-BIONTECH - PURPLE TOP) Josue Aguilera MD Work Phone: [facility] Work Phone: 09-03-2020 influenza, high-dose , quadrivalent vaccine (FLUZONE HIGH DOSE QUADRIVALENT) Josue Aguilera MD Work Phone: [facility] 09-11-2019 influenza, high dose seasonal, preservative-free Josue Aguilera MD Work Phone: [facility] 08-29-2018 influenza virus vacc ine, unspecified formulation Josue Aguilera MD Work Phone: [facility] 08-29-2018 influenza, high dose seasonal, preservative-free Josue Aguilera MD Work Phone: [facility] 12-19-2016 influenza, high dose seasonal, preservative-free Josue Aguilera MD Work Phone: [facility] 09-16-2015 influenza, high dose seasonal, preservative-free Josue Aguilera MD Work Phone: [facility] Work Phone: 09-16-2015 pneumococcal conjuga te vaccine, 13 valent Josue Aguilera MD Work Phone: [facility] Work Phone: 08-26-2014 influenza, seasonal, injectable Josue Aguilera MD Work Phone: [facility] Work Phone: 12-02-2013 influenza virus vacc ine, unspecified formulation Josue Aguilera MD Work Phone: [facility] Work Phone: 11-29-2012 influenza virus vacc ine, unspecified formulation Josue Aguilera MD Work Phone: [facility] Work Phone: 08-31-2010 influenza virus vacc ine, unspecified formulation Josue Aguilera MD Work Phone: [facility] Work Phone: 03-23-2010 pneumococcal polysaccharide vaccine, 23 valent Josue Aguilera MD Work Phone: [facility] Work Phone: 12-08-2008 hepatitis A vaccine, unspecified formulation Josue Aguilera MD Work Phone: [facility] 09-12-2008 influenza virus vacc ine, unspecified formulation Josue Aguilera MD Work Phone: [facility] 07-17-2007 hepatitis A vaccine, unspecified formulation Josue Aguilera MD Work Phone: [facility] Work Phone: 07-17-2007 hepatitis B vaccine, adult dosage Josue Aguilera MD Work Phone: [facility] Work Phone: 07-09-2006 tetanus toxoid, redu mary diphtheria toxoid, and acellular pertussis vaccine, adsorbed Josue Aguilera MD Work Phone: [facility] Work Phone: 06-17-1996 tetanus and diphther ia toxoids, adsorbed, preservative free, for adult use (2 Lf of tetanus toxoid and 2 Lf of diphtheria toxoid) Josue Aguilera MD Work Phone: [facility] Work Phone: 11-01-1970 tetanus and diphther ia toxoids, adsorbed, preservative free, for adult use (2 Lf of tetanus toxoid and 2 Lf of diphtheria toxoid) Josue Aguilera MD Work Phone: [facility] Work Phone: Payers Date Payer Category Payer Self-pay [id number] 2023 Private Health Insurance [employer] [id number] 2021 Medicare AETNA MEDICARE A ETNA MEDICARE PPO [id number] 2021-Present [phone] [address] [place] [address] [facility] [id number] 2021 Medicare (Managed Care) [facility] [id number] 2021 Private Health Insurance [id number] 2015 Medicare [id number] 2009 Unknown [id number] Self-pay SELF PAY INSURANCE [id number] Unknown [id number] Unknown [id number] Social History Date Type Detail Facility Start: 03-25-2012 End: 09-02-2024 Tobacco smoking status NHIS Ex-smoker [facility] Start: 11-24-1964 End: 11-24-1989 History of tobacco use Current smoker [facility] Start: 03-13-2022 End: 12-31-2024 Alcohol intake Current drinker of alcohol (finding) [facility] Start: 03-13-2022 End: 03-14-2023 Alcohol intake [facility] Start: 08-31-2020 End: 09-07-2022 History SDOH Alcohol Frequency 4 [facility] Start: 08-31-2020 End: 09-07-2022 History SDOH Alcohol Std Drinks 1 [facility] Start: 08-31-2020 End: 09-07-2022 History SDOH Social Connections Phone 2 [facility] Start: 08-31-2020 History SDOH Social Connections Yazidi 98 [facility] Start: 08-31-2020 End: 03-11-2023 History SDOH Social Connections Meetings 3 [facility] Start: 08-31-2020 History SDOH Physica l Activity DPW 7 [facility] Start: 08-31-2020 End: 09-07-2022 History SDOH Financial 5 [facility] Start: 08-31-2020 Education 16 [facility] Start: 1945 Sex Assigned At Not on file C [facility] Start: 02-05-2021 End: 09-14-2022 Exposure to SARS-CoV-2 (event) Not sure [facility] Start: 06-20-2022 Tobacco smoking stat us UTIS Unknown if ever smoked [facility] Work Phone: Start: 1945 Sex Assigned At Male [facility] Start: 11-24-1964 End: 11-24-1989 History of tobacco use Cigarette Smoker [facility] Start: 03-25-2012 End: 09-02-2024 Tobacco use and exposure Smokeless tobacco non-user [facility] Start: 03-11-2023 End: 03-14-2023 Social connection and isolation panel [facility] In a typical week, h ow many times do you talk on the telephone with family, friends, or neighbors? Patient refused [facility] Are you now , , , , never or living with a partner? Refused [facility] (I/We) worried wheth er (my/our) food would run out before (I/we) got money to buy more. DK or Refused [facility] Has the [employer] or [employer] threatened to shut off services in your home in past 12Mo No [facility] Do you belong to any clubs or organizations such as faith groups, unions, fraternal or athletic groups, or school groups? Yes [facility] Are you now , , , , never or living with a partner? [facility] How often to you hav e a drink containing alcohol? 2-4 times a month [facility] How many standard dr inks containing alcohol do you have on a typical day? 1 or 2 [facility] How often do you hav e 6 or more drinks on 1 occasion? Never [facility] Do you feel stress - tense, restless, nervous, or anxious, or unable to sleep at night because your mind is troubled all the time - these days [OSQ] Not at all [facility] (I/We) worried wheth er (my/our) food would run out before (I/we) got money to buy more. Never true [facility] How hard is it for y ou to pay for the very basics like food, housing, medical care, and heating Not very hard [facility] How often to you hav e a drink containing alcohol? 2-3 time sa week [facility] Start: 12-10-2024 Alcohol Comment occasional [facility] Start: 01-23-2025 Sex Male (finding) [facility] Medical Equipment Procedure Code Equipment Code Equipment Origin al Text Equipment Identifier Dates Insert Acetabula r 36mm 0d F Hip X3 Trident - [id number] Start: 12-31-2024 Stem Femoral 105 mm Size 5 High Offset Insignia Collared - [id number] Start: 12-31-2024 Shell Trident Ii 56mm F Tritanium Acetabular 5 Screw Hole Cluster Sterile - [id number] Start: 12-31-2024 Head V40 36mm 0m m Offset Taper [employer] Delta Femoral Hip - [id number] Start: 12-31-2024 Functional Status Date Assessment Result Facility 01-05-2025 Are you deaf, or do you have serious difficulty hearing No 01/05/2025 2:06 PM Betzaida Saldivar RN No [facility] 01-05-2025 Are you blind, or do you have serious difficulty seeing, even when wearing glasses No 01/05/2025 2:06 PM Betziada Saldivar RN No [facility] 01-05-2025 Do you have serious difficulty walking or climbing stairs No 01/05/2025 2:06 PM Betzaida Saldivar, BLAIR No [facility] 01-05-2025 Do you have difficul ty dressing or bathing No 01/05/2025 2:06 PM Betzaida Saldivar, BLAIR No [facility] 01-05-2025 Because of a physica l, mental, or emotional condition, do you have difficulty doing errands alone such as visiting a physician's office or shopping No 01/05/2025 2:06 PM Betzaida Saldivar RN No [facility] 12-08-2014 Are you deaf, or do you have serious difficulty hearing No 12/08/2014 9:14 AM CARLOS SHETH No [facility] 12-08-2014 Are you blind, or do you have serious difficulty seeing, even when wearing glasses No 12/08/2014 9:14 AM CARLOS SHETH No [facility] 12-08-2014 Do you have serious difficulty walking or climbing stairs No 12/08/2014 9:14 AM CHAYITO ROBBINSRADHACARLOS No [facility] 12-08-2014 Do you have difficul ty dressing or bathing No 12/08/2014 9:14 AM CHAYITO ROBBINSRADHACARLOS No [facility] 12-08-2014 Because of a physica l, mental, or emotional condition, do you have difficulty doing errands alone such as visiting a physician's office or shopping No 12/08/2014 9:14 AM CHAYITO ROBBINSRADHACARLOS [facility] Mental Status Date Assessment Result Facility 01-23-2025 Cognitive function Level Of Cons ciousness Awake;Alert;Appropriate;Fol lows Commands [facility] Work Phone: 01-05-2025 Because of a physica l, mental, or emotional condition, do you have serious difficulty concentrating, remembering, or making decisions No 01/05/2025 2:06 PM Betzaida Saldivar RN No [facility] 06-20-2022 Cognitive function Awake;Alert;A ppropriate;Fol lows Commands [facility] Work Phone: 12-08-2014 Because of a physica l, mental, or emotional condition, do you have serious difficulty concentrating, remembering, or making decisions No 12/08/2014 9:14 AM CHAYITO ROBBINS CARLOS [facility] Clinical Notes 02-21-2010 to 04-02-2025 Marcos West RN - 02/04/2025 9:57 AM Ravin Linares MD - 2025 4:53 PM Chema Gibbons, RT(R) - 2025 3:00 PM Kiana Malcolm RN - 01/28/2025 11:16 AM EDT Note Date & Type Note Facility 04-02-2025 Note HNO ID: [id number] Author: RAVIN HOUGH MD Service: ? Author Type: Physician Type: Progress Notes Filed: 04/02/2025 16:34 Note Text: Santa Pearl 3 months postop left total hip doing great. No complaints no pain. Ambulates without any support. X-rays excellent and I counseled him on his activities and we will see him back in December next year with an x-ray of his left hip. Assessment postop total hip doing well. Ravin Hough MD [facility] 04-02-2025 Note HNO ID: [id number] Author: LALO CHAHAL RT(R) Service: Radiology Author Type: Technologist Type: Progress Notes Filed: 04/02/2025 15:27 Note Text: Radiology Service Progress Note PATIENT NAME: Santa Pearl DATE OF SERVICE: April 02, 2025 TIME: 3:27 PM PATIENT IDENTITY VERIFICATION COMPLETED USING TWO (2) IDENTIFIERS: Name and Date of confirmed by patient verbally and Name and Date of confirmed by identification band. FALL SCREENING: Has the patient had 2 falls in the last year or 1 fall with injury or currently using an Ambulatory Assistive Device (Walker, Cane, Wheelchair, Crutches, etc.)? No PATIENT GENDER DATA: Assigned male at PATIENT RELEVANT IMPLANT DATA REVIEWED: Not Applicable PATIENT PRESENTS WITH AN IMPLANTABLE OR ATTACHED UNIFORM CAP OPERATOR: No RADIOLOGY DEPARTMENT: General X-ray: Exam(s) Completed: Pelvis X-Ray: Pelvis with Hip Left PERIPHERAL IV DATA: Not applicable SIGNED BY: RT Leyda(R) April 02, 2025 3:27 PM [facility] 02-04-2025 Note HNO ID: [id number] Author: MARCOS WEST RN Service: ? Author Type: Registered Nurse Type: Progress Notes Filed: 02/04/2025 10:10 Note Text: Transitional Care Management (TCM) Follow-Up Note PCP Update / Actionable Items N/A - No specialty updates needed Patient Source: In-Network Discharge Follow-up outreach: TCM enrolled patient Outreach Summary: Feeling much better. Denies questions or concerns. Went to out of network ED on 01-23-25. States it as his fault. 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 Was not drinking much that day. Contact: Contact made with patient: Yes Spoke to: Patient Validation: Validated the person spoken to is actively involved in the patient's care. The patient was identified by Name and Date of . I'd like to get an update on how you're doing since our last phone call. Is now a good time to talk? Yes Symptoms: Are you feeling about the same, better or worse since leaving the hospital? Better Weekly Outreach: 2nd Outreach Medications: Do you have any questions about taking your medications, including which medications you should be on, or do you need refills on your medications? No Patient Questions / Concerns: Do you have any questions related to your discharge? No Appointment / TCM Follow-Up: Have you had a follow-up visit with your Primary Care Provider or Specialist since you were discharged? Yes Do you need any assistance with scheduling or changing your follow-up appointments? Patient already has an appointment scheduled SDOH: Has Food and Housing been addressed in [employer] D[employer] in the past 3 months? No- Check [employer] Drivers to ensure Food and Housing have been addressed in the past 3 months. If longer than 3 months or not completed update [employer] on story board. EDUCATION--: Patient and family educated on issues/questions related to reason for admission, transition of care topics, and follow-up needed upon discharge. Marcos West RN February 04, 2025 9:59 AM [facility] 02-04-2025 History of Presen t illness Narrative Transitional Care Management (TCM) Follow-Up Note PCP Update / Actionable Items N/A - No specialty updates needed Patient Source: In-Network Discharge Follow-up outreach: TCM enrolled patient Outreach Summary: Feeling much better. Denies questions or concerns. Went to out of network ED on 01-23-25. States it as his fault. 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 Was not drinking much that day. Contact: Contact made with patient: Yes Spoke to: Patient Validation: Validated the person spoken to is actively involved in the patient's care. The patient was identified by Name and Date of . I'd like to get an update on how you're doing since our last phone call. Is now a good time to talk? Yes Symptoms: Are you feeling about the same, better or worse since leaving the hospital? Better Weekly Outreach: 2nd Outreach Medications: Do you have any questions about taking your medications, including which medications you should be on, or do you need refills on your medications? No Patient Questions / Concerns: Do you have any questions related to your discharge? No Appointment / TCM Follow-Up: Have you had a follow-up visit with your Primary Care Provider or Specialist since you were discharged? Yes Do you need any assistance with scheduling or changing your follow-up appointments? Patient already has an appointment scheduled SDOH: Has Food and Housing been addressed in Social Drivers in the past 3 months? No- Check Social Drivers to ensure Food and Housing have been addressed in the past 3 months. If longer than 3 months or not completed update Social Drivers on story board. EDUCATION--: Patient and family educated on issues/questions related to reason for admission, transition of care topics, and follow-up needed upon discharge. Marcos West RN February 04, 2025 9:59 AM documented in this encounter [facility] 02-04-2025 Note Patient Outreach ([facility]) S[place]AR[place] ([id number]) 1945 M Date Time Provider Department 02/04/25 [place] [place] [place] visit today, we recorded the following information about you: Marcos West RN 02/04/2025 10:10 AM Signed Transitional Care Management (TCM) Follow-Up Note PCP Update / Actionable Items N/A - No specialty updates needed Patient Source: In-Network Discharge Follow-up outreach: TCM enrolled patient Outreach Summary: Feeling much better. Denies questions or concerns. Went to out of network ED on 01-23-25. States it as his fault. 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 Was not drinking much that day. Contact: Contact made with patient: Yes Spoke to: Patient Validation: Validated the person spoken to is actively involved in the patient's care. The patient was identified by Name and Date of . I'd like to get an update on how you're doing since our last phone call. Is now a good time to talk? Yes Symptoms: Are you feeling about the same, better or worse since leaving the hospital? Better Weekly Outreach: 2nd Outreach Medications: Do you have any questions about taking your medications, including which medications you should be on, or do you need refills on your medications? No Patient Questions / Concerns: Do you have any questions related to your discharge? No Appointment / TCM Follow-Up: Have you had a follow-up visit with your Primary Care Provider or Specialist since you were discharged? Yes Do you need any assistance with scheduling or changing your follow-up appointments? Patient already has an appointment scheduled SDOH: Has Food and Housing been addressed in Social Drivers in the past 3 months? No- Check Social Drivers to ensure Food and Housing have been addressed in the past 3 months. If longer than 3 months or not completed update Social Drivers on story board. EDUCATION--: Patient and family educated on issues/questions related to reason for admission, transition of care topics, and follow-up needed upon discharge. Marcos West RN February 04, 2025 9:59 AM Allergies As of Date: 02/04/2025 Noted Allergy Reaction COCONUT 02/11/2010 11 - Vomiting Comments: Only allergic to shredded coconut, fine with oils. Date Reviewed: 01/27/2025 Reviewed by: Karlie Campos, PT - Fully Assessed Reason for Visit: Transition Of Care [4074] Cmt: Follow up Prescriptions as of 02/04/2025 - metFORMIN ER (GLUCOPHAGE XR) 500 mg 24 hr tablet Take 2 tablets by mouth daily with breakfast. - pantoprazole DR (PROTONIX) 20 mg tablet Take 1 tablet by mouth once daily for 14 days. - docusate sodium (COLACE) 100 mg capsule Take 1 capsule by mouth two times a day. Take colace while taking narcotics to decrease your risk of constipation - aspirin, enteric coated (ECOTRIN LOW STRENGTH) 81 mg EC tablet Take 1 tablet by mouth two times a day for 28 days. - naloxone 4 mg/actuation nasal spray (NARCAN) Use 1 spray in one nostril as needed for overdose. May repeat every 2 to 3 min in alternating nostrils until medical assistance is available - levothyroxine (SYNTHROID) 112 mcg tablet Take 1 tablet by mouth once daily. - atorvastatin (LIPITOR) 20 mg tablet Take 1 tablet by mouth once daily. - lisinopril (ZESTRIL) 5 mg tablet Take 1 tablet by mouth once daily. - aspirin, enteric coated (ASPIRIN, ENTERIC COATED) 81 mg EC tablet Take 1 tablet by mouth once daily. - nitroglycerin sublingual (NITROQUICK) 0.4 mg SL tablet Dissolve 1 tablet under the tongue every 5 minutes as needed for chest pain, up to 3 doses. If no relief, call 911. 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 12/19/2016 Herpes zoster without mention of complication [*05/03/2007 12/19/2016 Routine general medical examination at [facility]*07/17/2007 06/14/2016 Nodular prostate without urinary obstruction [N*09/19/2007 Other seborrheic keratosis [L82.1] 12/08/2008 12/19/2016 Elevated blood pressure reading without diagnos*06/03/2009 11/19/2019 Chest Pain [R07.9] 07/13/2009 02/21/2010 Other hyperlipidemia [E78.49] 07/13/2009 SUMMARY [V999.95] 02/11/2010 02/21/2010 Hypothyroid [E03.9] 02/12/2010 02/21/2010 NSTEMI (non-ST elevated myocardial infarction) *02/12/2010 12/19/2016 Sinus Bradycardia [R00.1] 02/12/2010 02/21/2010 Flank pain [R10.9] 02/21/2010 12/19/2016 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od[place] uribe*02/21/2010 03/13/2022 S/P angioplasty with stent 02/21/2010 12/19/2016 Dysmetabolic syndrome [E88.810] 07/29/2012 Thyroid nodule [E04.1] 08/05/2012 Presence of stent in LAD coronary artery [Z95.5]06/22/2016 S/P right coronary amee (more content not included)... [facility] 2025 Note HNO ID: [id number] Author: RAVIN HOUGH MD Service: ? Author Type: Physician Type: Progress Notes Filed: 2025 16:56 Note Text: Santa Pearl 1 month postop left total hip doing great. Wound is healed. No calf complaints. Ambulating without any support. X-rays excellent and I counseled him and his activities and we will see him back with an x-ray pelvis and left hip in 2 months. In addition the vocal cord issues that he had an immediately postop have completely resolved and he has no complaints referable to that. Assessment postop total hip doing well Ravin Hough MD [facility] 2025 History of Presen t illness Narrative Santa Pearl 1 month postop left total hip doing great. Wound is healed. No calf complaints. Ambulating without any support. X-rays excellent and I counseled him and his activities and we will see him back with an x-ray pelvis and left hip in 2 months. In addition the vocal cord issues that he had an immediately postop have completely resolved and he has no complaints referable to that. Assessment postop total hip doing well Ravin Hough MD documented in this encounter [facility] 2025 History of Presen t illness Narrative Radiology Service Progress Note PATIENT NAME: Santa Pearl DATE OF SERVICE: 2025 TIME: 3:05 PM PATIENT IDENTITY VERIFICATION COMPLETED USING TWO (2) IDENTIFIERS: Name and Date of confirmed by patient verbally and Name and Date of confirmed by identification band. FALL SCREENING: Has the patient had 2 falls in the last year or 1 fall with injury or currently using an Ambulatory Assistive Device (Walker, Cane, Wheelchair, Crutches, etc.)? No PATIENT GENDER DATA: Assigned male at PATIENT RELEVANT IMPLANT DATA REVIEWED: Not Applicable PATIENT PRESENTS WITH AN IMPLANTABLE OR ATTACHED UNIFORM CAP OPERATOR: No RADIOLOGY DEPARTMENT: General X-ray: Exam(s) Completed: Pelvis X-Ray: Pelvis with Hip Left PERIPHERAL IV DATA: Not applicable SIGNED BY: RT Miller Cela(R) 2025 3:05 PM documented in this encounter [facility] 2025 Note HNO ID: [id number] Author: CHEMA HOPKINS RT (R) Service: Radiology Author Type: Technologist Type: Progress Notes Filed: 2025 15:05 Note Text: Radiology Service Progress Note PATIENT NAME: Santa Pearl DATE OF SERVICE: 2025 TIME: 3:05 PM PATIENT IDENTITY VERIFICATION COMPLETED USING TWO (2) IDENTIFIERS: Name and Date of confirmed by patient verbally and Name and Date of confirmed by identification band. FALL SCREENING: Has the patient had 2 falls in the last year or 1 fall with injury or currently using an Ambulatory Assistive Device (Walker, Cane, Wheelchair, Crutches, etc.)? No PATIENT GENDER DATA: Assigned male at PATIENT RELEVANT IMPLANT DATA REVIEWED: Not Applicable PATIENT PRESENTS WITH AN IMPLANTABLE OR ATTACHED UNIFORM CAP OPERATOR: No RADIOLOGY DEPARTMENT: General X-ray: Exam(s) Completed: Pelvis X-Ray: Pelvis with Hip Left PERIPHERAL IV DATA: Not applicable SIGNED BY: RT Miller Cela(Radha) 2025 3:05 PM [facility] 01-28-2025 Note HNO ID: [id number] Author: KIANA HUSSEIN RN Service: ? Author Type: Registered Nurse Type: Progress Notes Filed: 01/28/2025 11:21 Note Text: Transitional Care Management (TCM) Follow-Up Note PCP Update / Actionable Items N/A N/A - No specialty updates needed Patient Source: In-Network Discharge Follow-up outreach: TCM enrolled patient Outreach Summary: Follow Up: Spoke to patient, he is feeling great except for the fact that PT yesterday made him do an exercise that really set him back yesterday, but today he is feeling better, he has Post-Op f/u 01/29/25 which he is very excited for, no other questions/concerns at this time Contact: Contact made with patient: Yes Spoke to: Patient Validation: Validated the person spoken to is actively involved in the patient's care. The patient was identified by Name and Date of . I'd like to get an update on how you're doing since our last phone call. Is now a good time to talk? Yes Symptoms: Are you feeling about the same, better or worse since leaving the hospital? Better Weekly Outreach: Additional Outreach Medications: Do you have any questions about taking your medications, including which medications you should be on, or do you need refills on your medications? No Patient Questions / Concerns: Do you have any questions related to your discharge? No Appointment / TCM Follow-Up: Have you had a follow-up visit with your Primary Care Provider or Specialist since you were discharged? Yes Do you need any assistance with scheduling or changing your follow-up appointments? Patient already has an appointment scheduled EDUCATION: N/A Kiana Hussein RN January 28, 2025 11:17 AM [facility] 01-28-2025 History of Presen t illness Narrative Transitional Care Management (TCM) Follow-Up Note PCP Update / Actionable Items N/A N/A - No specialty updates needed Patient Source: In-Network Discharge Follow-up outreach: TCM enrolled patient Outreach Summary: Follow Up: Spoke to patient, he is feeling great except for the fact that PT yesterday made him do an exercise that really set him back yesterday, but today he is feeling better, he has Post-Op f/u 01/29/25 which he is very excited for, no other questions/concerns at this time Contact: Contact made with patient: Yes Spoke to: Patient Validation: Validated the person spoken to is actively involved in the patient's care. The patient was identified by Name and Date of . I'd like to get an update on how you're doing since our last phone call. Is now a good time to talk? Yes Symptoms: Are you feeling about the same, better or worse since leaving the hospital? Better Weekly Outreach: Additional Outreach Medications: Do you have any questions about taking your medications, including which medications you should be on, or do you need refills on your medications? No Patient Questions / Concerns: Do you have any questions related to your discharge? No Appointment / TCM Follow-Up: Have you had a follow-up visit with your Primary Care Provider or Specialist since you were discharged? Yes Do you need any assistance with scheduling or changing your follow-up appointments? Patient already has an appointment scheduled EDUCATION: N/A Kiana Hussein RN January 28, 2025 11:17 AM documented in this encounter [facility] 01-28-2025 Note Patient Outreach ([facility] RYANNESANTA Poole ([id number]) 1945 M Date Time Provider Department 01/28/25 KIANA HUSSE[place] [facility] [place] your visit today, we recorded the following information about you: Kiana Hussein RN 01/28/2025 11:21 AM Signed Transitional Care Management (TCM) Follow-Up Note PCP Update / Actionable Items N/A N/A - No specialty updates needed Patient Source: In-Network Discharge Follow-up outreach: TCM enrolled patient Outreach Summary: Follow Up: Spoke to patient, he is feeling great except for the fact that PT yesterday made him do an exercise that really set him back yesterday, but today he is feeling better, he has Post-Op f/u 01/29/25 which he is very excited for, no other questions/concerns at this time Contact: Contact made with patient: Yes Spoke to: Patient Validation: Validated the person spoken to is actively involved in the patient's care. The patient was identified by Name and Date of . I'd like to get an update on how you're doing since our last phone call. Is now a good time to talk? Yes Symptoms: Are you feeling about the same, better or worse since leaving the hospital? Better Weekly Outreach: Additional Outreach Medications: Do you have any questions about taking your medications, including which medications you should be on, or do you need refills on your medications? No Patient Questions / Concerns: Do you have any questions related to your discharge? No Appointment / TCM Follow-Up: Have you had a follow-up visit with your Primary Care Provider or Specialist since you were discharged? Yes Do you need any assistance with scheduling or changing your follow-up appointments? Patient already has an appointment scheduled EDUCATION: N/A Kiana Hussein RN January 28, 2025 11:17 AM Allergies As of Date: 01/28/2025 Noted Allergy Reaction COCONUT 02/11/2010 11 - Vomiting Comments: Only allergic to shredded coconut, fine with oils. Date Reviewed: 01/27/2025 Reviewed by: Karlie Campos PT - Fully Assessed Prescriptions as of 01/28/2025 - metFORMIN ER (GLUCOPHAGE XR) 500 mg 24 hr tablet Take 2 tablets by mouth daily with breakfast. - pantoprazole DR (PROTONIX) 20 mg tablet Take 1 tablet by mouth once daily for 14 days. - docusate sodium (COLACE) 100 mg capsule Take 1 capsule by mouth two times a day. Take colace while taking narcotics to decrease your risk of constipation - aspirin, enteric coated (ECOTRIN LOW STRENGTH) 81 mg EC tablet Take 1 tablet by mouth two times a day for 28 days. - naloxone 4 mg/actuation nasal spray (NARCAN) Use 1 spray in one nostril as needed for overdose. May repeat every 2 to 3 min in alternating nostrils until medical assistance is available - levothyroxine (SYNTHROID) 112 mcg tablet Take 1 tablet by mouth once daily. - atorvastatin (LIPITOR) 20 mg tablet Take 1 tablet by mouth once daily. - lisinopril (ZESTRIL) 5 mg tablet Take 1 tablet by mouth once daily. - aspirin, enteric coated (ASPIRIN, ENTERIC COATED) 81 mg EC tablet Take 1 tablet by mouth once daily. - nitroglycerin sublingual (NITROQUICK) 0.4 mg SL tablet Dissolve 1 tablet under the tongue every 5 minutes as needed for chest pain, up to 3 doses. If no relief, call 911. 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 12/19/2016 Herpes zoster without mention of complication [*05/03/2007 12/19/2016 Routine general medical examination at [facility]*07/17/2007 06/14/2016 Nodular prostate without urinary obstruction [N*09/19/2007 Other seborrheic keratosis [L82.1] 12/08/2008 12/19/2016 Elevated blood pressure reading without diagnos*06/03/2009 11/19/2019 Chest Pain [R07.9] 07/13/2009 02/21/2010 Other hyperlipidemia [E78.49] 07/13/2009 SUMMARY [V999.95] 02/11/2010 02/21/2010 Hypothyroid [E03.9] 02/12/2010 02/21/2010 NSTEMI (non-ST elevated myocardial infarction) *02/12/2010 12/19/2016 Sinus Bradycardia [R00.1] 02/12/2010 02/21/2010 Flank pain [R10.9] 02/21/2010 12/19/2016 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 uribe*02/21/2010 03/13/2022 S/P angioplasty with stent 02/21/2010 12/19/2016 Dysmetabolic syndrome [E88.810] 07/29/2012 Thyroid nodule [E04.1] 08/05/2012 Presence of stent in LAD coronary artery [Z95.5]06/22/2016 S/P right coronary artery (RCA) stent placement*06/22/2016 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 uribe*06/22/2016 Sinus bradycardia [R00.1] 06/22/2017 Essential hypertension [I10] 11/19/2019 History of hypothyroidism [Z86.39] 09/14/2022 10/03/2023 Subarachnoid bleed (HCC) [I60.9] 11/18/2023 11/28/2024 Diagnosed: 11/26/2023 Controlled type 2 diabetes mellitus without com*05/29/2024 History of subarachnoid hemo (more content not included)... [facility] 01-27-2025 Miscellaneous Notes Formattin g of this note might be different from the original. SITUATION: spouse present during today's visit. patient reports the following since the last homecare visit: medications/allergies--no change, no fall. patient reports he has already been outdoors walking and hip is feeling really good. . : Diagnoses (reason for Home Care): LTHR Weight Bearing/Precaution Changes: no changes ASSESSMENT: Focus of visit review of HEP. Gait training w/o ad outdoors, uneven terrain. Stair training w/o cane to celler Physical therapy discharged: goals achieved. Functional performance at discharge - bed mobility independent, transfers independent, ambulation independent and stairs independent. Plan of care, goals, and discharge reviewed and agreed upon with patient and/or caregiver. RECOMMENDATION: Patient discharged from home health services. Instructions to include:home exercise program as directed See intervention summary for intervention/education details. documented in this encounter [facility] 01-27-2025 Patient's home Note Formattin g of this note might be different from the original. SITUATION: spouse present during today's visit. patient reports the following since the last homecare visit: medications/allergies--no change, no fall. patient reports he has already been outdoors walking and hip is feeling really good. . : Diagnoses (reason for Home Care): LTHR Weight Bearing/Precaution Changes: no changes ASSESSMENT: Focus of visit review of HEP. Gait training w/o ad outdoors, uneven terrain. Stair training w/o cane to celler Physical therapy discharged: goals achieved. Functional performance at discharge - bed mobility independent, transfers independent, ambulation independent and stairs independent. Plan of care, goals, and discharge reviewed and agreed upon with patient and/or caregiver. RECOMMENDATION: Patient discharged from home health services. Instructions to include:home exercise program as directed See intervention summary for intervention/education details. [facility] Work Phone: 01-23-2025 Discharge summary [facility] 01-23-2025 Radiology Diagnostic study note [facility] Imaging Services [address] [place] [address] Chest 1 View (Portable) MR#: [id number] Acct: [id number] Name: SANTA PEARL Rep #: [id number] : 1945 M 79 From: Jocelyn Burgos MD PCP: Dr. Josue Aguilera MD Status: REG E R Study:Chest 1 View (Portable) Date of Exam: 01/23/25 Exam# [id number] Ordering Dr: Espinosa,T yler DO PROCEDURE: CHEST 1 VIEW (PORTABLE) 01/23/2025 REASON FOR EXAM: STROKE TECHNIQUE: Frontal view of the chest. COMPARISON: 06/20/2022 FINDINGS: Mild cardiomegaly. Mild atherosclerotic calcification of the thoracic aorta No focal consolidation. No pneumothorax. No pleural effusion. Degenerative changes are identified within the thoracic spine. Mild degenerative changes of the right glenohumeral joint. RAD/Chest 1 View (Portable) IMPRESSION: No Acute Findings. Reading Location: [facility] CC: Dr. Bk Espinosa DO; Dr. Josue Aguilera MD ~ Customer Service Correspondence Clerk: Signed [facility] 01-23-2025 Discharge summary Note Date/Time January 23, 2025 8:28pm [facility] Medical Records Department [address] [place] [address] Emergency Department Summary 01/23/25 MR#: [id number] Acct: [id number] Name: SANTA PEARL Rep #:[id number] : 1945 79 From: Bk Espinosa DO PCP: Dr. Josue Aguilera MD Status:REG E R Location: ED HPI History of Present Illness Chief Complaint: Dizziness Narrative Narrative: Patient is a 79-year-old male with past medical history of CAD status post CABG several years ago, hypothyroidism, Ramirez's palsy who presented to the emergency department with a chief complaint of feel like he is in a pass out. Chief complaint was dizziness and in triage note was noted as well, however the patient was not dizzy he states that he was very lightheaded he was not spinningobjects were not spinning.. 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 Today around 2:30 PM he noted that he was in his shop became very hot lightheaded with sweating and he states that he developed tunnel vision. He states that he had to sit down he states that he has not been lightheaded like this in a very long time he states that this has happened 1 other time. 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 Family bedside noted that she had to sithim down and prevent him from falling/passing out. Patient states that he not drink much water today. At the time of my exam today here in the emergency department he states that he is back to his baseline [facility] Medical History Dizziness Home Medications ?Medication ?Instructions ?Recorded ?Last Taken ?Type aspirin 81 mg chewable tablet 81 mg PO DAILY@0800 05/2508/17/14 08:30 History atorvastatin 20 mg tablet 20 mg PO QHS 08/18/14 00:30 History clopidogrel 75 mg tablet 75 mg PO DAILY 08/18/1404/25 08:30 History levothyroxine 112 mcg tablet 112 mcg PO DAILY 08/18/14 08/17/14 08:30 History (Synthroid) lisinopril 5 mg tablet 5 mg PO QHS 08/18/14 4 00:30 History Allergy/AdvReac Type Severity Reaction Status Date / Time coconut AdvReac Vomiting Verified 01/23/25 15:28 Social History household members: spouse Smoking Status: Former smoker substance use type: does not use ROS ROS ED ROS Narrative Constitutional: Complains of lightheadedness as noted above denies fevers chills, dizziness, headaches Eyes: Denies change in vision double vision blurry vision Cardiovascular: Denies chest pain or palpitations Respiratory: Denies coughing wheezing shortness of breath Abdomen: Denies abdominal pain nausea vomit diarrhea : Denies urinary symptoms Neurological: States that he has had 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 past causing unequal smile on the left this is not new denies any other numbness or tingling Musculoskeletal: Denies back pain Skin: Denies rashes or lesions EXAM Physical Exam Narrative Exam Narrative: General: Patient was lying in bed rest comfortably did not appear to be in acutedistress Head: Atraumatic, normocephalic Eyes: PERRL bilaterally, EOMI bilaterally, no conjunctival injection noted Neck: Soft, supple, trachea midline Cardiovascular: Regular rate and rhythm no murmurs gallops rubs noted Respiratory: Clear to auscultation bilaterally Abdomen: Soft, nondistended, nontender to palpation Extremities: +5/5 strength noted in the bilateral upper and lower extremities, radial pulse +2/4 in the bilateral extremities, no pedal edema on exam Neurological: Patient following commands knew that he was at [facility] year is 2024. NIH is 0 GCS 15. Patient completed finger-nose test bilaterally,difficulty Skin: Warm, dry, intact no rashes or lesions noted Const Vital Signs: 01/23/25 15:25 01/23/25 18:00 01/23/25 18:13 Temperature 95.5 F L 98.3 F Temperature Source Oral Oral Pulse Rate 72 81 Respiratory Rate 18 18 Blood Pressure 94/62 140/71 H 140/71 H Blood Pressure Mean 72 94 94 Pulse Ox 99 97 98 Oxygen Delivery Method Room Air Room Air Room Air MDM MDM MDM Narrative Medical decision making narrative: Patient is a 79-year-old male who presented to the emergency department chief complaint of lightheadedness and almost passing out. On the differential diagnose includes but not limited to vasovagal syncope, dehydration, ACS. Once workup is obtained reviewed he will be reevaluated. Patient began IV fluids forhydration. With static vital signs will be obtained. Patient CBC reviewed and showed no evidence leukocytosis white blood count of 10.9, hemoglobin 1.9, plate count of 302. Patient's INR normal at 1, PT of 13.7. Patient sodium normal at 30, test normal 4.2, creatinine was 1.26. Patient's troponin was noted be 15 with a delta troponin noted to be 14. Patient EKG reviewed and showed sinus rhythm with a rate of 72 bpm with evidenceof first-degree AV block. Patient's chest x-ray was reviewed by myself which showed no acute cardiopulmonary processes this was also read by radiology. Patient ambulated well here in the emergency department he feels much better andwould like to go home at this point time. Patient was advised to ensure that heis adequately hydrating with plenty of fluids. He is vies follow-up with his primary care physician and return with worsening symptoms or any concerns. He is agreeable this plan as well as family member bedside all question concerns answered he is discharged home in stable condition. Lab Data Labs: Laboratory Results - last 24 hr 01/23/25 01/23/25 01/23/25 16:30 16:30 18:04 WBC 10.9 RBC 3.75 L Hgb 11.9 L Hct 37.3 L MCV 99.5 H MCH 31.7 MCHC 31.9 L RDW Std Deviation 48.3 H RDW Coeff of Kiko 13.3 Plt Count 302 MPV 10.5 Immature Gran % (Auto) 0.700 Neut % (Auto) 81.2 H Lymph % (Auto) 8.1 L [facility] % (Auto) 8.5 Eos % (Auto) 1.0 Baso % (Auto) 0.5 Absolute Neuts (auto) 8.9 H Absolute Lymphs (auto) 0.89 Nucleated RBC % 0 PT 13.7 INR 1.0 APTT 27.2 Sodium 138 Potassium 4.2 Chloride 98 Carbon Dioxide 24.0 Anion Gap 16 H BUN 24 H Creatinine 1.26 H Est GFR (MDRD) Non-Af 58 L BUN/Creatinine Ratio 18.8 Glucose 170 H Calcium 9.7 Troponin T High Sens 15 Cancelled Troponin T Hi Sens 2 Hr 14 Radiography Diagnostic Testing: Clinical Impression(s) from Imaging Studies Chest X-Ray 01/23/25 16:45 IMPRESSION: No Acute Findings. [facility] Triage Chief Complaint: Dizziness ED Provider: Bk Espinosa Dx/Rx/DC Orders Clinical Impression: Vasovagal near-syncope Prescriptions: No Action clopidogrel 75 MG tablet 75 mg PO DAILY Patient Comments: anti-platelet aspirin 81 MG tablet,chewable 81 mg PO DAILY@0800 Patient Comments: heart health lisinopril 5 MG tablet 5 mg PO QHS Patient Comments: blood pressure atorvastatin 20 MG tablet 20 mg PO QHS Patient Comments: cholesterol levothyroxine [Synthroid] 112 MCG tablet 112 mcg PO DAILY Patient Comments: synthroid Primary Care Provider: Josue Aguilera Referrals: Josue Aguilera MD [Primary Care Provider] - Activity Restrictions/Additional Instructions: Follow-up with your family physician outpatient setting. Return with worsening symptoms or any concerns. Ensure that you are drinking plenty water to stay hydrated. Print Language: Urdu Disposition Disposition: Home, Self Care What to do if you have Problems For any increased pain, shortness of breath, bleeding, nausea or vomiting, chestpain, or any unexpected problems, contact your Primary Care Provider. Call [facility] ([phone]) or report to the closest Emergency Room. Call 911 if necessary. 01/23/252027 <Electronically signed by Bk Espinosa DO> Kenneth Signature (if applicable): CC: Dr. Josue Aguilera MD ~ Signed [facility] Work Phone: 1(522) 887-335703-11-2025 Miscellaneous Notes* PT ROUTINE/REASSESSMENT/RECERT/CASE MGMT - Shelly Gamboa PTA - 01/20/2025 12:40 PM EDT SITUATION: spouse present during today's visit. patient reports the following since the last homecare visit: medications/allergies--no longer taking anything for pain or bowels, no fall. patient reports he has already been outdoors walking today and hip is feeling really good. . BACKGROUND: Diagnoses (reason for Home Care): LTHR Weight Bearing/Precaution Changes: no changes ASSESSMENT: Focus of visit review of HEP. Gait training w/ SC outdoors, uneven terrain. 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 Issued NOMNC, patient deneis questions/concerns with form Plan of care, goals, and visit frequency reviewed and agreed upon with patient and/or caregiver. Current Discharge Plan: independent with home exercise program Anticipate discharge by 01/27/25 RECOMMENDATION: Next visit to focus on prep fro dc See intervention summary for intervention/education details. [facility] Patient's home Note* PT ROUTINE/REASSESSMENT/RECERT/CASE MGMT Shelly Novoa PTA - 01/20/2025 12:40 PM EDT SITUATION: spouse present during today's visit. patient reports the following since the last homecare visit: medications/allergies--no longer taking anything for pain or bowels, no fall. patient reports he has already been outdoors walking today and hip is feeling really good. . BACKGROUND: Diagnoses (reason for Home Care): LTHR Weight Bearing/Precaution Changes: no changes ASSESSMENT: Focus of visit review of HEP. Gait training w/ SC outdoors, uneven terrain. 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 Issued NOMNC, patient deneis questions/concerns with form Plan of care, goals, and visit frequency reviewed and agreed upon with patient and/or caregiver. Current Discharge Plan: independent with home exercise program Anticipate discharge by 01/27/25 RECOMMENDATION: Next visit to focus on prep fro dc See intervention summary for intervention/education details. [facility] Work Phone: 1(824) 547-347003-11-2025 NoteHNO ID: [id number] Author: MARCOS WEST RN Service: ? Author Type: Registered Nurse Type: Progress Notes Filed: 01/20/2025 11:33 Note Text: Transitional Care Management (TCM) Follow-Up Note PCP Update / Actionable Items N/A - No specialty updates needed Patient Source: In-Network Discharge Follow-up outreach: TCM enrolled patient Outreach Summary: Feels great. Denies questions or concerns. Saw PCP 01-15-25. Metformin increased to 1,000 mg daily with breakfast. Has been taking increased dose. No problems with increased dose, denies diarrhea. BG has not changed. Will call PCP if bg has not changed in about a week. Contact: Contact made with patient: Yes Spoke to: Patient Validation: Validated the person spoken to is actively involved in the patient's care. The patient was identified by Name and Date of . I'd like to get an update on how you're doing since our last phone call. Is now a good time to talk? Yes Symptoms: Are you feeling about the same, better or worse since leaving the hospital? Better Weekly Outreach: 1st Outreach Medications: Do you have any questions about taking your medications, including which medications you should be on, or do you need refills on your medications? No Patient Questions / Concerns: Do you have any questions related to your discharge? No Appointment / TCM Follow-Up: Have you had a follow-up visit with your Primary Care Provider or Specialist since you were discharged? Yes Do you need any assistance with scheduling or changing your follow-up appointments? Patient already has an appointment scheduled EDUCATION: Patient and family educated on issues/questions related to reason for admission, transition of care topics, and follow-up needed upon discharge. Marcos West RN January 20, 2025 11:25 [facility]03-11-2025 History of Present illness Narrative* Marcos West RN - 01/20/2025 11:24 AM EDT Transitional Care Management (TCM) Follow-Up Note PCP Update / Actionable Items N/A - No specialty updates needed Patient Source: In-Network Discharge Follow-up outreach: TCM enrolled patient Outreach Summary: Feels great. Denies questions or concerns. Saw PCP 01-15-25. Metformin increased to1,000 mg daily with breakfast. Has been taking increased dose. No problems with increased dose, denies diarrhea. BG has not changed. Will call PCP if bg has not changed in about a week. Contact: Contact made with patient: Yes Spoke to: Patient Validation: Validated the person spoken to is actively involved in the patient's care. The patient was identified by Name and Date of . I'd like to get an update on how you're doing since our last phone call. Is now a good time to talk? Yes Symptoms: Are you feeling about the same, better or worse since leaving the hospital? Better Weekly Outreach: 1st Outreach Medications: Do you have any questions about taking your medications, including which medications you should be on, or do you need refills on your medications? No Patient Questions / Concerns: Do you have any questions related to your discharge? No Appointment / TCM Follow-Up: Have you had a follow-up visit with your Primary Care Provider or Specialist since you were discharged? Yes Do you need any assistance with scheduling or changing your follow-up appointments? Patient alreadyhas an appointment scheduled EDUCATION: Patient and family educated on issues/questions related to reason for admission, transition of care topics, and follow-up needed upon discharge. Marcos West RN January 20, 2025 11:25 AM documented in this encounterOur [facility]03-[facility] NotePatient Outreach ([facility]) [place] ([id number]) 1945 M Date Time Provider Department 01/20/25 [place]OS [place]ST [facility] [place] today, we recorded the following information about you: Marcos West RN 01/20/2025 11:33 AM Signed Transitional Care Management (TCM) Follow-Up Note PCP Update / Actionable Items N/A - No specialty updates needed Patient Source: In-Network Discharge Follow-up outreach: TCM enrolled patient Outreach Summary: Feels great. Denies questions or concerns. Saw PCP 01-15-25. Metformin increased to 1,000 mg daily with breakfast. Has been taking increased dose. No problems with increased dose, denies diarrhea. BG has not changed. Will call PCP if bg has not changed in about a week. Contact: Contact made with patient: Yes Spoke to: Patient Validation: Validated the person spoken to is actively involved in the patient's care. The patient was identified by Name and Date of . I'd like to get an update on how you're doing since our last phone call. Is now a good time to talk? Yes Symptoms: Are you feeling about the same, better or worse since leaving the hospital? Better Weekly Outreach: 1st Outreach Medications: Do you have any questions about taking your medications, including which medications you should be on, or do you need refills on your medications? No Patient Questions / Concerns: Do you have any questions related to your discharge? No Appointment / TCM Follow-Up: Have you had a follow-up visit with your Primary Care Provider or Specialist since you were discharged? Yes Do you need any assistance with scheduling or changing your follow-up appointments? Patient already has an appointment scheduled EDUCATION: Patient and family educated on issues/questions related to reason for admission, transition of care topics, and follow-up needed upon discharge. Marcos West RN January 20, 2025 11:25 AM Allergies As of Date: 01/20/2025 Noted Allergy Reaction COCONUT 02/11/2010 11 - Vomiting Comments: Only allergic to shredded coconut, fine with oils. Date Reviewed: 01/15/2025 Reviewed by: Shelly Gamboa PTA - Fully Assessed Reason for Visit: Transition Of Care [4074] Cmt: Follow up Prescriptions as of 01/20/2025 - metFORMIN ER (GLUCOPHAGE XR) 500 mg 24 hr tablet Take 2 tablets by mouth daily with breakfast. - pantoprazole DR (PROTONIX) 20 mg tablet Take 1 tablet by mouth once daily for 14 days. - docusate sodium (COLACE) 100 mg capsule Take 1 capsule by mouth two times a day. Take colace while taking narcotics to decrease your risk of constipation - aspirin, enteric coated (ECOTRIN LOW STRENGTH) 81 mg EC tablet Take 1 tablet by mouth two times a day for 28 days. - naloxone 4 mg/actuation nasal spray (NARCAN) Use 1 spray in one nostril as needed for overdose. May repeat every 2 to 3 min in alternating nostrils until medical assistance is available - levothyroxine (SYNTHROID) 112 mcg tablet Take 1 tablet by mouth once daily. - atorvastatin (LIPITOR) 20 mg tablet Take 1 tablet by mouth once daily. - lisinopril (ZESTRIL) 5 mg tablet Take 1 tablet by mouth once daily. - aspirin, enteric coated (ASPIRIN, ENTERIC COATED) 81 mg EC tablet Take 1 tablet by mouth once daily. - nitroglycerin sublingual (NITROQUICK) 0.4 mg SL tablet Dissolve 1 tablet under the tongue every 5 minutes as needed for chest pain, up to 3 doses. If no relief, call 911. 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 12/19/2016 Herpes zoster without mention of complication [*05/03/2007 12/19/2016 Routine general medical examination at [facility]*07/17/2007 06/14/2016 Nodular prostate without urinary obstruction [N*09/19/2007 Other seborrheic keratosis [L82.1] 12/08/2008 12/19/2016 Elevated blood pressure reading without diagnos*06/03/2009 11/19/2019 Chest Pain [R07.9] 07/13/2009 02/21/2010 Other hyperlipidemia [E78.49] 07/13/2009 SUMMARY [V999.95] 02/11/2010 02/21/2010 Hypothyroid [E03.9] 02/12/2010 02/21/2010 NSTEMI (non-ST elevated myocardial infarction) *02/12/2010 12/19/2016 Sinus Bradycardia [R00.1] 02/12/2010 02/21/2010 Flank pain [R10.9] 02/21/2010 12/19/2016 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*02/21/2010 03/13/2022 S/P angioplasty with stent 02/21/2010 12/19/2016 Dysmetabolic syndrome [E88.810] 07/29/2012 Thyroid nodule [E04.1] 08/05/2012 Presence of stent in LAD coronary artery [Z95.5]06/22/2016 S/P right coronary artery (RCA) stent placement*06/22/2016 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 uribe*06/22/2016 Sinus bradycardia [R00.1] 06/22/2017 Essential hypertension [I10] 11/19/2019 History of hypothyroidism [Z86.39] 09/14/2022more content not included)...[facility]03-06-2025 Miscellaneous Notes* PT ROUTINE/REASSESSMENT/RECERT/CASE MGMT - Shelly Gamboa, [employer] - 01/15/2025 3:54 PM EST SITUATION: spouse present during today's visit. patient reports the following since the last homecare visit: medications/allergies--no changes, no fall. patient reports he is doing really well. Pleased with progress No longer using cane in home but does take it outdoors . BACKGROUND: Diagnoses (reason for Home Care): LTHR Weight Bearing/Precaution Changes: no changes ASSESSMENT: Focus of visit performed and progressed carey standing exercises to include step ups on 5in step. Denies pain/soreness after. Gait training for household mobility w/o AD, good stride length and no limpnoted. Plan of care, goals, and visit frequency reviewed and agreed upon with patient and/or caregiver. Current Discharge Plan: independent with home exercise program Anticipate discharge by 01/27/25 RECOMMENDATION: Next visit to focus on increase reps See intervention summary for intervention/education details. [facility] Patient's home Note* HH PT ROUTINE/REASSESSMENT/RECERT/CASE MGMT - Shelly Gamboa PTA - 01/15/2025 3:54 PM EST SITUATION: spouse present during today's visit. patient reports the following since the last homecare visit: medications/allergies--no changes, no fall. patient reports he is doing really well. Pleased with progress No longer using cane in home but does take it outdoors . BACKGROUND: Diagnoses (reason for Home Care): LTHR Weight Bearing/Precaution Changes: no changes ASSESSMENT: Focus of visit performed and progressed carey standing exercises to include step ups on 5in step. Denies pain/soreness after. Gait training for household mobility w/o AD, good stride length and no limpnoted. Plan of care, goals, and visit frequency reviewed and agreed upon with patient and/or caregiver. Current Discharge Plan: independent with home exercise program Anticipate discharge by 01/27/25 RECOMMENDATION: Next visit to focus on increase reps See intervention summary for intervention/education details. [facility] Work Phone: 1(532) 255-819403-06-2025 Instructions* Patient Instructions* Michaela Heart APRN.CNP - 01/15/2025 9:48 AM EST 1) Increase Metformin ER to 1,000 mg daily 2) See Dr. Aguilera as scheduled 06/24/25 documented in this encounterOur [facility]03-06-2025 NoteHNO ID: [id number] Author: MICHAELA HEART APRN.CNP Service: ? Author Type: Nurse Practitioner Type: Progress Notes Filed: 01/15/2025 09:49 Note Text: This is a 79 year old male who presents today with: Patient presents with: Follow Up: Hip Replacement follow up HISTORY OF PRESENT ILLNESS: Santa Pearl is a 79 year old male. Patient presents with: Follow Up: Hip Replacement follow up Recovering from L TERI. Feeling good. Saw ENT, said throat injured but will heel. 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 HYPERLIPIDEMIA NEC/NOS Hyperplasia of prostate Personal history of colonic polyps S/P angioplasty with stent 02/21/2010 x2 Thyroid nodule 08/05/2012 Unspecified hemorrhoids without mention of complication Unspecified hypothyroidism PAST SURGICAL HISTORY Procedure Laterality Date ARTHRP KNE CONDYLEANDPLATU MEDIALANDLAT COMPARTMENTS 11/12/1990 Knee replacement, total LEFT ARTHRP KNE CONDYLEANDPLATU MEDIALANDLAT COMPARTMENTS 11/12/2006 PARTIAL KNEE REPLACEMENT RIGHT CC CORONARY STENT 02/10/2010 x2 COLONOSCOPY AND POLYPECTOMY 01/14/2002 repeat 2011 FNA WITH IMAGING 08/21/2012 U/S FNA right thyroid lesion TOTAL HIP REPLACEMENT Left 12/31/2024 Left TERI ALLERGIES [place] MEDICATIONS Current Outpatient Medications Medication Sig pantoprazole DR (PROTONIX) 20 mg tablet Take 1 tablet by mouth once daily for 14 days. meloxicam (MOBIC) 15 mg tablet Take 1 tablet by mouth once daily for 14 days. docusate sodium (COLACE) 100 mg capsule Take 1 capsule by mouth two times a day. Take colace while taking narcotics to decrease your risk of constipation aspirin, enteric coated (ECOTRIN LOW STRENGTH) 81 mg EC tablet Take 1 tablet by mouth two times a day for 28 days. levothyroxine (SYNTHROID) 112 mcg tablet Take 1 tablet by mouth once daily. atorvastatin (LIPITOR) 20 mg tablet Take 1 tablet by mouth once daily. lisinopril (ZESTRIL) 5 mg tablet Take 1 tablet by mouth once daily. aspirin, enteric coated (ASPIRIN, ENTERIC COATED) 81 mg EC tablet Take 1 tablet by mouth once daily. (Patient taking differently: Take 81 mg by mouth two times a day.) metFORMIN ER (GLUCOPHAGE XR) 500 mg 24 hr tablet Take 1 tablet by mouth daily with breakfast. naloxone 4 mg/actuation nasal spray (NARCAN) Use 1 spray in one nostril as needed for overdose. May repeat every 2 to 3 min in alternating nostrils until medical assistance is available benzonatate (TESSALON PERLE) 100 mg capsule Take 1 capsule by mouth three times a day as needed. (Patient taking differently: Take 1 capsule by mouth three times a day as needed for cough.) nitroglycerin sublingual (NITROQUICK) 0.4 mg SL tablet Dissolve 1 tablet under the tongue every 5 minutes as needed for chest pain, up to 3 doses. If no relief, call 911. No current facility-administered medications for this visit. FAMILY HISTORY Problem Relation Age of Onset Cancer Mother LYMPHATIC Heart Father [place] Emphysema Father smoker/welder shielded metal arc Cancer Maternal Grandmother Social History Tobacco Use Smoking status: Former Current packs/day: 0.00 Average packs/day: 1 pack/day for 25.0 years (25.0 ttl pk-yrs) Types: Cigarettes Start date: 11/24/1964 Quit date: 11/24/1989 Years since quittin.1 Smokeless tobacco: Never Vaping Use Vaping status: Never Used Substance Use Topics Alcohol use: Yes Alcohol/week: 1.0 standard drink of alcohol Types: 1 Cans of Beer (12oz) per week Comment: occasional Drug use: No No weight loss or gain Eating good. Drinking fine. No trouble swallowing. In therapy Sleeping fine- 7 hours. Bowels and bladder fine Some swelling when up moving around- gone in morning Incision healing well No SOB, cough or wheeze No chest pain, palpitations, orthopnea EXAM: BP 116/68 Pulse 64 Temp 36.6 ?C (97.9 ?F) (Right Tympanic) Wt 85.3 kg (188 lb) SpO2 97% BMI 26.98 kg/m? PHYSICAL EXAM: Physical Exam Vitals reviewed. Constitutional: Appearance: Normal appearance. HENT: Head: Normocephalic. Cardiovascular: Rate and Rhythm: Normal rate and regular rhythm. Pulses: Normal pulses. Heart sounds: Murmur heard. Comments: Soft LAI @ sternal border, diminished at apex Pulmonary: Effort: Pulmonary effort is normal. Breath sounds: Normal breath sounds. Abdominal: General: Bowel sounds are normal. Palpations: Abdomen is soft. Tenderness: There is no abdominal tenderness. There is no guarding or rebound. Musculoskeletal: General: Normal range of motion. Comments: Left TERI healing well, walks w/ a cane Skin: General: Skin is warm and dry. Neurological: Mental Status: He is alert and oriented to person, place, and time. Psychiatric: (more content not included)...[facility]03-06-2025 History of Present illness Narrative* Michaela Heart APRN.OB/GYN DOCTOR - 01/15/2025 9:31 AM EST This is a 79 year old male who presents today with: Patient presents with: Follow Up: Hip Replacement follow up HISTORY OF PRESENT ILLNESS: Santa Pearl is a 79 year old male. Patient presents with: Follow Up: Hip Replacement follow up Recovering from L TERI. Feeling good. Saw ENT, said throat injured but will heel. 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 HYPERLIPIDEMIA NEC/NOS Hyperplasia of prostate Personal history of colonic polyps S/P angioplasty with stent 02/21/2010 x2 Thyroid nodule 08/05/2012 Unspecified hemorrhoids without mention of complication Unspecified hypothyroidism PAST SURGICAL HISTORY Procedure Laterality Date ARTHRP KNE CONDYLE&PLATU MEDIAL&LAT COMPARTMENTS 11/12/1990 Knee replacement, total LEFT ARTHRP KNE CONDYLE&PLATU MEDIAL&LAT COMPARTMENTS 11/12/2006 PARTIAL KNEE REPLACEMENT RIGHT CC CORONARY STENT 02/10/2010 x2 COLONOSCOPY & POLYPECTOMY 01/14/2002 repeat 2012 FNA WITH IMAGING 08/21/2012 U/S FNA right thyroid lesion TOTAL HIP REPLACEMENT Left 12/31/2024 Left TERI ALLERGIES [place] MEDICATIONS Current Outpatient Medications Medication Sig pantoprazole DR (PROTONIX) 20 mg tablet Take 1 tablet by mouth once daily for 14 days. meloxicam (MOBIC) 15 mg tablet Take 1 tablet by mouth once daily for 14 days. docusate sodium (COLACE) 100 mg capsule Take 1 capsule by mouth two times a day. Take colace while taking narcotics to decrease your risk of constipation aspirin, enteric coated (ECOTRIN LOW STRENGTH) 81 mg EC tablet Take 1 tablet by mouth two times a day for 28 days. levothyroxine (SYNTHROID) 112 mcg tablet Take 1 tablet by mouth once daily. atorvastatin (LIPITOR) 20 mg tablet Take 1 tablet by mouth once daily. lisinopril (ZESTRIL) 5 mg tablet Take 1 tablet by mouth once daily. aspirin, enteric coated (ASPIRIN, ENTERIC COATED) 81 mg EC tablet Take 1 tablet by mouth once daily. (Patient taking differently: Take 81 mg by mouth two times a day.) metFORMIN ER (GLUCOPHAGE XR) 500 mg 24 hr tablet Take 1 tablet by mouth daily with breakfast. naloxone 4 mg/actuation nasal spray (NARCAN) Use 1 spray in one nostril as needed for overdose. Mayrepeat every 2 to 3 min in alternating nostrils until medical assistance is available benzonatate (TESSALON PERLE) 100 mg capsule Take 1 capsule by mouth three times a day as needed. (Patient taking differently: Take 1 capsule by mouth three times a day as needed for cough.) nitroglycerin sublingual (NITROQUICK) 0.4 mg SL tablet Dissolve 1 tablet under the tongue every 5 minutes as needed for chest pain, up to 3 doses. If no relief, call 911. No current facility-administered medications for this visit. FAMILY HISTORY Problem Relation Age of Onset Cancer Mother LYMPHATIC Heart Father IA Emphysema Father smoker/welder shielded metal arc Cancer Maternal Grandmother Social History Tobacco Use Smoking status: Former Current packs/day: 0.00 Average packs/day: 1 pack/day for 25.0 years (25.0 ttl pk-yrs) Types: Cigarettes Start date: 11/24/1964 Quit date: 11/24/1989 Years since quittin.1 Smokeless tobacco: Never Vaping Use Vaping status: Never Used Substance Use Topics Alcohol use: Yes Alcohol/week: 1.0 standard drink of alcohol Types: 1 Cans of Beer (12oz) per week Comment: occasional Drug use: No No weight loss or gain Eating good. Drinking fine. No trouble swallowing. In therapy Sleeping fine- 7 hours. Bowels and bladder fine Some swelling when up moving around- gone in morning Incision healing well No SOB, cough or wheeze No chest pain, palpitations, orthopnea EXAM: BP 116/68 Pulse 64 Temp 36.6 C (97.9 F) (Right Tympanic) Wt 85.3 kg (188 lb) SpO2 97% BMI26.98 kg/m PHYSICAL EXAM: Physical Exam Vitals reviewed. Constitutional: Appearance: Normal appearance. HENT: Head: Normocephalic. Cardiovascular: Rate and Rhythm: Normal rate and regular rhythm. Pulses: Normal pulses. Heart sounds: Murmur heard. Comments: Soft LAI @ sternal border, diminished at apex Pulmonary: Effort: Pulmonary effort is normal. Breath sounds: Normal breath sounds. Abdominal: General: Bowel sounds are normal. Palpations: Abdomen is soft. Tenderness: There is no abdominal tenderness. There is no guarding or rebound. Musculoskeletal: General: Normal range of motion. Comments: Left TERI healing well, walks w/ a cane Skin: General: Skin is warm and dry. Neurological: Mental Status: He is alert and oriented to person, place, and time. Psychiatric: Mood and Affect: Mood normal. Behavior: Behavior normal. LABS: ASSESSMENT/PLAN: 1. 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 coronary artery of [place] heart without angina pectoris- ICD9: 414.01, ICD10: I25.10 (primary diagnosis) Stable 2. Screening for diabetic retinopathy - ICD9: V80.2, ICD10: Z13.5 Eye exam next month 3. Hypothyroidism, unspecified type - ICD9: 244.9, ICD10: E03.9 - Instructed patient on importance of taking on an empty stomach either first thing in the morning or at bedtime. Stable 4. Essential hypertension - ICD9: 401.9, ICD10: I10 - Controlled - Recommend home blood pressure monitoring, to bring results to next visit - Encouraged sodium restriction, DASH or Mediterranean diet - Recommend regular aerobic exercise 5. Left hip pain - ICD9: 719.45, ICD10: M25.552 Post-op L TKA- doing well 6. Controlled type 2 diabetes mellitus without complication, without long-term current use of insulin (HCC) - ICD9: 250.00, ICD10: E11.9 - Worsening control - Increase metformin ER 1,000 mg daily Discussed treatment plan and patient voices understanding. Patient's questions answered appropriately. Medications and potential side effects were discussed and patient voices understanding. Return to the office as scheduled or as needed for worsening/no improvement. Michaela Heart APRN.SAYRA documented in this encounterOur [facility]03-04-[facility]25 Miscellaneous Notes* PT ROUTINE/REASSESSMENT/RECERT/CASE MGMT - Shelly Gamboa PTA - 01/13/2025 12:35 PM EST SITUATION: spouse present during today's visit. patient reports the following since the last homecare visit: medications/allergies--no changes, no fall. patient reports he did alot of walking yesterday and did have some swelling in left foot. States swelling was gone thsi morning. . BACKGROUND: Diagnoses (reason for Home Care): LTHR Weight Bearing/Precaution Changes: no changes ASSESSMENT: Focus of visit progressed standing exercises for HEP. Gait training w/ cane outdoors including uneven terrain. Step training Plan of care, goals, and visit frequency reviewed and agreed upon with patient and/or caregiver. Current Discharge Plan: independent with home exercise program Anticipate discharge by 01/27/25 RECOMMENDATION: Next visit to focus on increase reps if able See intervention summary for intervention/education details. documented in this encounterOur [facility]03-04-[facility]25 Patient's home Note* PT ROUTINE/REASSESSMENT/RECERT/CASE MGMT - Shelly Gamboa PTA - 01/13/2025 12:35 PM EST SITUATION: spouse present during today's visit. patient reports the following since the last homecare visit: medications/allergies--no changes, no fall. patient reports he did alot of walking yesterday and did have some swelling in left foot. States swelling was gone thsi morning. . BACKGROUND: Diagnoses (reason for Home Care): LTHR Weight Bearing/Precaution Changes: no changes ASSESSMENT: Focus of visit progressed standing exercises for HEP. Gait training w/ cane outdoors including uneven terrain. Step training Plan of care, goals, and visit frequency reviewed and agreed upon with patient and/or caregiver. Current Discharge Plan: independent with home exercise program Anticipate discharge by 01/27/25 RECOMMENDATION: Next visit to focus on increase reps if able See intervention summary for intervention/education details. [facility] Work Phone: [phone] Miscellaneous Notes* PT ROUTINE/REASSESSMENT/RECERT/CASE MGMT - Shelly Gamboa PTA - 01/09/2025 10:47 AM EST SITUATION: spouse present during today's visit. patient and caregiver reports the following since the last homecare visit: medications/allergies--no changes, no fall. patient reports he is feeling good. startedwalking w/o ww this morning. BACKGROUND: Diagnoses (reason for Home Care): LTHR Weight Bearing/Precaution Changes: posterior ASSESSMENT: Focus of visit progressed exercises for HEP. denies increased pain after. patient ambulating w/o ADupon my arrival. Instructed patient in correct use of cane for household mobility. To use ww for all outdoor ambulation at this time. voiced understanding Plan of care, goals, and visit frequency reviewed and agreed upon with patient and/or caregiver. Current Discharge Plan: independent with home exercise program Anticipate discharge by 01/27/25 RECOMMENDATION: Next visit to focus on stair training See intervention summary for intervention/education details. documented in this encounterOur [facility]02-28-2025 Patient's home Note* PT ROUTINE/REASSESSMENT/RECERT/CASE MGMT - Shelly Gamboa PTA - 01/09/2025 10:47 AM EST SITUATION: spouse present during today's visit. patient and caregiver reports the following since the last homecare visit: medications/allergies--no changes, no fall. patient reports he is feeling good. startedwalking w/o ww this morning. BACKGROUND: Diagnoses (reason for Home Care): LTHR Weight Bearing/Precaution Changes: posterior ASSESSMENT: Focus of visit progressed exercises for HEP. denies increased pain after. patient ambulating w/o ADupon my arrival. Instructed patient in correct use of cane for household mobility. To use ww for all outdoor ambulation at this time. voiced understanding Plan of care, goals, and visit frequency reviewed and agreed upon with patient and/or caregiver. Current Discharge Plan: independent with home exercise program Anticipate discharge by 01/27/25 RECOMMENDATION: Next visit to focus on stair training See intervention summary for intervention/education details. [facility] Work Phone: [phone]) 673-404002-28-2025 Miscellaneous Notes* OT EVALUATION/REASSESSMENT/RECERT - Corry Luz OT - 01/09/2025 6:45 AM EST SITUATION: Pt answered door ambulating without device in no apparent distress. spouse present during today's visit. patient reports the following since the last homecare visit: medications/allergies--no changes, no fall. BACKGROUND: Primary Diagnoses (reason for Home Care): Primary osteoarthritis of left hip s/p 12/31/24 ARTHROPLASTY REPLACE JOINT TOTAL HIP (Left: Hip) [facility] 12/[facility]24 - 01/05/25. 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 ASSESSMENT: PLOF: Pt was Indep with all I/ADL, transfers, and community distance mobility without a device. He was driving and was managing own meds. Social situation: Pt lives in 2 story home with spouse. Pt does not use the 2nd floor. Spouse is willing, able, and available to assist with whatever pt needs. Barriers: decreased balance D/C Plan; to remain in own home. [facility]. Reviewed and explained homecare services. Plan of care, goals and visit frequency developed, reviewed, and agreed upon with patient and/or caregiver. Patient identified goals: to be able to walk without a device. pt scored 95/100 on the Modified Erin Index, indicating he does not require assist for ADL tasks. He has been instructed and is indep with AE for LB ADL and has no DME needs at this time. Revieweds/s of infection and TH precautions. Pt was able to verbalize and follow with functional tasks. Therapist notified PCP that BS was at 199 this date. Current Discharge Plan:remain in community with/without caregiver support. Anticipate discharge by 01/09/25 RECOMMENDATION: Plan for next visit to focus on N/a - 1 time eval only. See intervention summary for intervention/education details. documented in this encounterOur [facility]02-28-2025 Patient's home Note* OT EVALUATION/REASSESSMENT/RECERT - Corry Luz OT - 01/09/2025 6:45 AM EST SITUATION: Pt answered door ambulating without device in no apparent distress. spouse present during today's visit. patient reports the following since the last homecare visit: medications/allergies--no changes, no fall. BACKGROUND: Primary Diagnoses (reason for Home Care): Primary osteoarthritis of left hip s/p 12/31/24 ARTHROPLASTY REPLACE JOINT TOTAL HIP (Left: Hip) [facility] 12/31/24 - 01/05/25. 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 ASSESSMENT: PLOF: Pt was Indep with all I/ADL, transfers, and community distance mobility without a device. He was driving and was managing own meds. Social situation: Pt lives in 2 story home with spouse. Pt does not use the 2nd floor. Spouse is willing, able, and available to assist with whatever pt needs. Barriers: decreased balance D/C Plan; to remain in own home. [facility]. Reviewed and explained homecare services. Plan of care, goals and visit frequency developed, reviewed, and agreed upon with patient and/or caregiver. Patient identified goals: to be able to walk without a device. pt scored 95/100 on the Modified Erin Index, indicating he does not require assist for ADL tasks. He has been instructed and is indep with AE for LB ADL and has no DME needs at this time. Revieweds/s of infection and TH precautions. Pt was able to verbalize and follow with functional tasks. Therapist notified PCP that BS was at 199 this date. Current Discharge Plan:remain in community with/without caregiver support. Anticipate discharge by 01/09/25 RECOMMENDATION: Plan for next visit to focus on N/a - 1 time eval only. See intervention summary for intervention/education details. [facility] Work Phone: [phone] Miscellaneous Notes* CARE COORDINATION - Paige Sanchez RN - 01/08/2025 9:46 AM EST Medication review completed. No ineffective drug therapy, significant side effects, significant drug interactions, duplicate drug therapy, or noncompliance with drug therapy noted. Paige Sanchez RN documented in this encounterOur [facility] Of [facility]02-27-2025 Patient's home Note* CARE COORDINATION - Paige Sanchez RN - 01/08/2025 9:46 AM EST Medication review completed. No ineffective drug therapy, significant side effects, significant drug interactions, duplicate drug therapy, or noncompliance with drug therapy noted. Paige Sanchez RN [facility] Work Phone: [phone] Miscellaneous Notes* PT SOC/JO/FOLLOW UP/OTHER - Karlie Campos, PT - 01/07/2025 8:01 AM EST SITUATION: spouse present during today's visit. patient reports im doing pretty good except for my voice . BACKGROUND: Diagnoses (reason for Home Care)[facility] 12[facility]-: Primary osteoarthritis of left hip s/p 12/31/24 ARTHROPLASTY REPLACE JOINT TOTAL HIP (Left: Hip)- posterior Pt had an episode of emesis during surgury and was suctioned with no evidenc eof aspiration. Post op dyphasia. Prolonged hosp stay while dyphasia was adressed. 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 Weight Bearing or Surgical Precautions: posterior , falls, wbat ASSESSMENT: [facility]. Reviewed and explained homecare services. Plan of care, goals, and visit frequency developed, reviewed, and agreed upon with patient and/or caregiver. Home: 2 story - 2 step no rail entry. Main floor set up . Lives with spouse PLF; functionally indep w/o ad at community level. + drives Patient Goal: walk without pain Patient will benefit from continued physical therapy to address the following deficits: strength, balance, gait, endurance, transfers and stair negotiation. Current Discharge Plan: independent with home exercise program. Anticipate discharge by tbd. RECOMMENDATION: Next visit to focus on ther ex, gait, balance Agreeable to PT and OT; declining none. See intervention summary for intervention/education details. documented in this encounterOur [facility]02-26-2025 Patient's home Note* PT SOC/JO/FOLLOW UP/OTHER - Karlie Campos PT - 01/07/2025 8:01 AM EST SITUATION: spouse present during today's visit. patient reports im doing pretty good except for my voice . BACKGROUND: Diagnoses (reason for Home Care)[facility] 12/31-: Primary osteoarthritis of left hip s/p 12/31/24 ARTHROPLASTY REPLACE JOINT TOTAL HIP (Left: Hip)- posterior Pt had an episode of emesis during surgury and was suctioned with no evidenc eof aspiration. Post op dyphasia. Prolonged hosp stay while dyphasia was adressed. 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 Weight Bearing or Surgical Precautions: posterior , falls, wbat ASSESSMENT: Patient evaluated by [facility]. Reviewed and explained homecare services. Plan of care, goals, and visit frequency developed, reviewed, and agreed upon with patient and/or caregiver. Home: 2 story - 2 step no rail entry. Main floor set up . Lives with spouse PLF; functionally indep w/o ad at community level. + drives Patient Goal: walk without pain Patient will benefit from continued physical therapy to address the following deficits: strength, balance, gait, endurance, transfers and stair negotiation. Current Discharge Plan: independent with home exercise program. Anticipate discharge by tbd. RECOMMENDATION: Next visit to focus on ther ex, gait, balance Agreeable to PT and OT; declining none. See intervention summary for intervention/education details. [facility] Work Phone: [phone]) 701-478902-25-2025 NoteHNO ID: [id number] Author: MARCOS WEST RN Service: ? Author Type: Registered Nurse Type: Progress Notes Filed: 01/06/2025 10:16 Note Text: Transition Care Management (TCM) Initial Outreach PCP Update / Actionable Items HRTIC TCM Home Visit Referral Source of Stratification: TCM [facility] Hospital Admission Status: Discharged Readmission Risk Score: 11 Patient's zip code: Is zip code within program service area: {Y/N:63 Patient meets program referral criteria: No Patient does not qualify for High Risk TCM Home Visit program due to: Readmission Risk Score does not meet criteria Disposition: Patient does not qualify for HRTIC, will provide TCM outreach follow-up for 30-days Patient Source: In-Network Discharge Initial outreach: TCM discharge report Outreach Summary: Using walker. States he can use cane but feels steady with walker. [facility] PT to start tomorrow. Doing exercises from PT. Dressing is dry and intact. Discussed ambulation, medications, follow up, dressing, blood clot prevention. Taking ASA, using compression hose. Has follow up with surgeon AND ENT. He spoke with PCP office this morning AND they will call back with Hospital Follow up appointment. Declined assistance making PCP appointment, states his PCP staff are great. Advised when he is called for appointment let them know it is for a Hospital Follow up and should be within 14 days. Reviewed importance of hydration and walking as tolerated to avoid constipation. States he takes all his medications as directed. Moved his bowels at the hospital. Unsure if he has moved them since he came home.Has not taken a Narcotic since he came home. Patient discharged from [facility] Discharge date: 01-05-25 Admitted for: Left total hip replacement Readmission Risk: 11 Value-Based Contract: [employer] NICOLE Contact: Contact made with patient: Yes Hi, my name is Marcos West RN and I am calling from the [facility] on behalf of your Primary Care Provider, Josue Aguilera MD. I understand you were recently in the hospital, so I am calling to check in with you to ensure you are feeling well now that you are home. May I ask you a few questions related to your hospital stay and well-being? Yes Spoke to: Patient Validation: Validated the person spoken to is actively involved in the patient's care. The patient was identified by Name and Date of . Symptoms: Are you feeling about the same, better or worse since leaving the hospital? Better Medications: Do you have any questions about taking your medications, including which medications you should be on, or do you need refills on your medications? No Medication Review: Partial mediation review completed, per patient preference Discharge Instructions: Your Discharge Instructions / After Visit Summary (AVS) are important in guiding you through the recovery process. Do you have any questions related to your discharge instructions? Yes Discussed the patient's questions and/or concerns. If applicable, the appropriate Team/Provider updated in FYI box. Home Care: Were you discharged with home care? Yes Has your Home Care Agency contacted you? Yes Name of Home Care Agency: [facility] Phone number, if available: [phone] Start of Home Care services date: 01-07-25 Home care services included: Physical / Occupational Therapy Equipment: Do you have all the necessary equipment and supplies needed at your home? Yes The patient verbalizes understanding the use of the equipment and supplies Social: Your mental health is as important to us as your physical health. Would you mind answering a few questions on this topic? No, patient declines. Follow-Up Appointment: [Appointment / TCM Follow-up within 14 days] I would like to help you schedule a hospital follow-up virtual or telephone visit with your PCP. This is a great way for you to connect with your provider to ensure you have safely transitioned home. If you are agreeable, I will send your request to a wellness trainer who will contact and assist you with that appointment. This will give you an opportunity to ask any questions or address any concerns you may have with your PCP. Inform the patient that if they have any questions or concerns prior to that appointment, to call their PCP's office right away. Appointment Action: Patient desires an appointment. Complete Navigation Team box and route to appropriate pool for scheduling. Education details: Patient and family educated on issues/questions related to reason for admission, transition of care topics, and follow-up needed upon discharge. Utilization Education - Where to go for Care Where to Go for Care Marcos West RN January 06, 2025 9:23 [facility]02-25-2025 History of Present illness Narrative* Marcos West RN - 01/06/2025 9:22 AM EST Transition Care Management (TCM) Initial Outreach PCP Update / Actionable Items HRTIC TCM Home Visit Referral Source of Stratification: TCM [facility] Hospital Admission Status: Discharged Readmission Risk Score: 11 Patient's zip code: Is zip code within program service area: {Y/N:63 Patient meets program referral criteria: No Patient does not qualify for High Risk TCM Home Visit program due to: Readmission Risk Score does not meet criteria Disposition: Patient does not qualify for HRTIC, will provide TCM outreach follow-up for 30-days Patient Source: In-Network Discharge Initial outreach: TCM discharge report Outreach Summary: Using walker. States he can use cane but feels steady with walker. [facility] PT to start tomorrow. Doing exercises from PT. Dressing is dry and intact. Discussed ambulation, medications,follow up, dressing, blood clot prevention. Taking ASA, using compression hose. Has follow up with surgeon & ENT. He spoke with PCP office this morning & they will call back with Hospital Follow up appointment. Declined assistance making PCP appointment, states his PCP staff are great. Advised when he is called for appointment let them know it is for a Hospital Follow up and should be within 14 days. Reviewed importance of hydration and walking as tolerated to avoid constipation. Stateshe takes all his medications as directed. Moved his bowels at the hospital. Unsure if he has moved them since he came home.Has not taken a Narcotic since he came home. Patient discharged from [facility] Discharge date: 01-05-25 Admitted for: Left total hip replacement Readmission Risk: 11 Value-Based Contract: Nahid NICOLE Contact: Contact made with patient: Yes Hi, my name is Marcos West RN and I am calling from the [facility] on behalf of your Primary Care Provider, Josue Aguilera MD. I understand you were recently in the hospital, so I am calling to check in with you to ensure you are feeling well now that you are home. May I ask you a few questions related to your hospital stay and well-being? Yes Spoke to: Patient Validation: Validated the person spoken to is actively involved in the patient's care. The patient was identified by Name and Date of . Symptoms: Are you feeling about the same, better or worse since leaving the hospital? Better Medications: Do you have any questions about taking your medications, including which medications you should be on, or do you need refills on your medications? No Medication Review: Partial mediation review completed, per patient preference Discharge Instructions: Your Discharge Instructions / After Visit Summary (AVS) are important in guiding you through the recovery process. Do you have any questions related to your discharge instructions? Yes Discussed the patient's questions and/or concerns. If applicable, the appropriate Team/Provider updated in FYI box. Home Care: Were you discharged with home care? Yes Has your Home Care Agency contacted you? Yes Name of Home Care Agency: [facility] Phone number, if available: [phone] Start of Home Care services date: 01-07-25 Home care services included: Physical / Occupational Therapy Equipment: Do you have all the necessary equipment and supplies needed at your home? Yes The patient verbalizes understanding the use of the equipment and supplies Social: Your mental health is as important to us as your physical health. Would you mind answering a few questions on this topic? No, patient declines. Follow-Up Appointment: [Appointment / TCM Follow-up within 14 days] I would like to help you schedule a hospital follow-up virtual or telephone visit with your PCP. This is a great way for you to connect with your provider to ensure you have safely transitioned home.If you are agreeable, I will send your request to a wellness trainer who will contact and assist you with that appointment. This will give you an opportunity to ask any questions or address any concerns youmay have with your PCP. Inform the patient that if they have any questions or concerns prior to that appointment, to call their PCP's office right away. Appointment Action: Patient desires an appointment. Complete Navigation Team box and route to appropriate pool for scheduling. Education details: Patient and family educated on issues/questions related to reason for admission,transition of care topics, and follow-up needed upon discharge. Utilization Education - Where to go for Care Where to Go for Care Marcos West RN January 06, 2025 9:23 AM [facility] Telephone encounter Note * Telephone Encounter - Charisse Silver - 01/06/2025 9:18 AM EST Spoke with patient and he chose to go with [facility] as they could get him in sooner than [facility]. Patient has appointment on 01/08/25 with [facility]. Orders/Referrals to be faxed. Charisse Silver [facility]02-25-2025 Miscellaneous Notes* Telephone Encounter - Charisse Silver - 01/06/2025 9:18 AM EST Spoke with patient and he chose to go with [facility] as they could get him in sooner than [facility]. Patient has appointment on 01/08/25 with [facility]. Orders/Referrals to be faxed. Charisse Silver * Telephone Encounter - Josue Aguilera MD - 01/05/2025 10:57 AM EST Please set up. * Telephone Encounter - Manuela Hernandez MA - 01/05/2025 9:30 AM EST See [employer] message. Manuela Hernandez MA documented in this encounterOur [facility]25 NotePatient Outreach (SIRIG) [place] ([id number]) 1945 M Date Time Provider Department 01/06/25 MARCOS WEST During your visit today, we recorded the following information about you: Marcos West RN 01/06/2025 10:16 AM Signed Transition Care Management (TCM) Initial Outreach PCP Update / Actionable Items HRTIC TCM Home Visit Referral Source of Stratification: [facility] Hospital Admission Status: Discharged Readmission Risk Score: 11 Patient's zip code: Is zip code within program service area: {Y/N:63 Patient meets program referral criteria: No Patient does not qualify for High Risk TCM Home Visit program due to: Readmission Risk Score does not meet criteria Disposition: Patient does not qualify for HRTIC, will provide TCM outreach follow-up for 30-days Patient Source: In-Network Discharge Initial outreach: TCM discharge report Outreach Summary: Using walker. States he can use cane but feels steady with walker. [facility] PT to start tomorrow. Doing exercises from PT. Dressing is dry and intact. Discussed ambulation, medications, follow up, dressing, blood clot prevention. Taking ASA, using compression hose. Has follow up with surgeon [facility]. He spoke with PCP office this morning AND they will call back with Hospital Follow up appointment. Declined assistance making PCP appointment, states his PCP staff are great. Advised when he is called for appointment let them know it is for a Hospital Follow up and should be within 14 days. Reviewed importance of hydration and walking as tolerated to avoid constipation. States he takes all his medications as directed. Moved his bowels at the hospital. Unsure if he has moved them since he came home.Has not taken a Narcotic since he came home. Patient discharged from [facility] Discharge date: 01-05-25 Admitted for: Left total hip replacement Readmission Risk: 11 Value-Based Contract: Aetmathieu NICOLE Contact: Contact made with patient: Yes Hi, my name is Marcos West RN and I am calling from the [facility] on behalf of your Primary Care Provider, Josue Aguilera MD. I understand you were recently in the hospital, so I am calling to check in with you to ensure you are feeling well now that you are home. May I ask you a few questions related to your hospital stay and well-being? Yes Spoke to: Patient Validation: Validated the person spoken to is actively involved in the patient's care. The patient was identified by Name and Date of . Symptoms: Are you feeling about the same, better or worse since leaving the hospital? Better Medications: Do you have any questions about taking your medications, including which medications you should be on, or do you need refills on your medications? No Medication Review: Partial mediation review completed, per patient preference Discharge Instructions: Your Discharge Instructions / After Visit Summary (AVS) are important in guiding you through the recovery process. Do you have any questions related to your discharge instructions? Yes Discussed the patient's questions and/or concerns. If applicable, the appropriate Team/Provider updated in FYI box. Home Care: Were you discharged with home care? Yes Has your Home Care Agency contacted you? Yes Name of Home Care Agency: [facility] Phone number, if available: [phone] Start of Home Care services date: 01-07-25 Home care services included: Physical / Occupational Therapy Equipment: Do you have all the necessary equipment and supplies needed at your home? Yes The patient verbalizes understanding the use of the equipment and supplies Social: Your mental health is as important to us as your physical health. Would you mind answering a few questions on this topic? No, patient declines. Follow-Up Appointment: [Appointment / TCM Follow-up within 14 days] I would like to help you schedule a hospital follow-up virtual or telephone visit with your PCP. This is a great way for you to connect with your provider to ensure you have safely transitioned home. If you are agreeable, I will send your request to a wellness trainer who will contact and assist you with that appointment. This will give you an opportunity to ask any questions or address any concerns you may have with your PCP. Inform the patient that if they have any questions or concerns prior to that appointment, to call their PCP's office right away. Appointment Action: Patient desires an appointment. Complete Navigation Team box and route to appropriate pool for scheduling. Education details: Patient and family educated on issues/questions related to reason for admission, transition of care topics, and follow-up needed upon discharge. Utilization Education - Where to go for Care Where to Go for Care Marcos West RN January 06, 2025 9:23 AM Allergies As of (more content not included)...[facility] 01-05-2025 NoteHNO ID: [id number] Author: BETZAIDA MCGHEE RN Service: Nursing Author Type: Registered Nurse Type: Progress Notes Filed: 01/05/2025 14:51 Note Text: Patient discharged home with home care services. Discussed discharge medications, discharge instructions, and follow up appointment (patient advised of ENT consult). Patient educated in incentive spirometer, wound care, and weight bearing. Patient verbalized good understanding. Patient transported via wheel chair to private vehicle.[facility] [id number] NoteHNO ID: [id number] Author: KEITH SOTO MD Service: General Internal Medicine Author Type: Physician Type: Progress Notes Filed: 01/05/2025 14:46 Note Text: PROGRESS NOTE - INTERNAL MEDICINE PATIENT NAME: [place] SERVICE DATE: January 05, 2025 SERVICE TIME: 2:44 PM PCP: Josue Aguilera MD ADMITTING PHYSICIAN: Ravin Hough MD MD INTERVAL HISTORY OF PRESENT ILLNESS: Ambulating well pain is controlled seen by dietary possible clearance REVIEW OF SYSTEMS: GENERAL: No weight loss, malaise or fevers RESPIRATORY: Negative for cough, hemoptysis, wheezing, COPD, dyspnea or shortness of breath CARDIOVASCULAR: Negative for chest pain, leg swelling, hypertension, CHF or palpitations GI: No nausea, vomiting, or diarrhea : No history of dysuria, frequency or incontinence PSYCH: Negative for sleep disturbance, mood disorder and recent psychosocial stressors. ENDOCRINE: Negative for cold or heat intolerance, polyuria, polydipsia and goiter All other reviewed and negative other than HPI. PRIOR TO ADMISSION MEDICATIONS: levothyroxine (SYNTHROID) 112 mcg tablet, Take 1 tablet by mouth once daily., Disp: 90 tablet, Rfl: 12/31/2024 at 4:30 AM atorvastatin (LIPITOR) 20 mg tablet, Take 1 tablet by mouth once daily., Disp: 90 tablet, Rfl: , 12/30/2024 lisinopril (ZESTRIL) 5 mg tablet, Take 1 tablet by mouth once daily., Disp: 90 tablet, Rfl: , 12/31/2024 at 4:30 AM aspirin, enteric coated (ASPIRIN, ENTERIC COATED) 81 mg EC tablet, Take 1 tablet by mouth once daily., Disp: 30 tablet, Rfl: 11, 12/31/2024 at 4:30 AM metFORMIN ER (GLUCOPHAGE XR) 500 mg 24 hr tablet, Take 1 tablet by mouth daily with breakfast., Disp: 90 tablet, Rfl: , 12/30/2024 Noon benzonatate (TESSALON PERLE) 100 mg capsule, Take 1 capsule by mouth three times a day as needed., Disp: 30 capsule, Rfl: 0 nitroglycerin sublingual (NITROQUICK) 0.4 mg SL tablet, Dissolve 1 tablet under the tongue every 5 minutes as needed for chest pain, up to 3 doses. If no relief, call 911., Disp: 3 Bottle of 25, Rfl: 1 INs AND OUT SUMMARY: No intake or output data in the 24 hours ending 01/05/25 1444 PHYSICAL EXAM: Patient Vitals for the past 24 hrs: BP Temp Temp src Pulse Resp SpO2 01/05/25 0749 157/50 36.3 ?C (97.3 ?F) Oral 64 18 97 % 01/04/25 2336 143/64 36.4 ?C (97.5 ?F) Oral (!) 54 18 98 % 01/04/25 1710 139/73 36.7 ?C (98.1 ?F) Oral 70 18 97 % GENERAL: Alert, no distress, cooperative SKIN: Skin color, texture, turgor normal. No rashes or lesions. NECK: No jugulovenous distention, No carotid bruits, Carotid pulse normal contour, Supple LUNGS: Lungs clear to auscultation. Good diaphragmatic excursion. CARDIAC: Normal S1 and S2; no rubs, murmurs, or gallops ABDOMEN: Abdomen soft, non-tender. BS normal. No masses or organomegaly. EXTREMETIES: Extremities normal. No deformities, edema, clubbing or skin discoloration. NEURO: Alert, oriented X 3, Cranial nerves II-XII intact, Gait normal. Reflexes normal and symmetric. Sensation grossly intact. PULSES: 2+ radial, 2+ carotid DATA: Recent Labs 01/05/25 0622 01/05/25 0621 01/04/25 0434 01/04/25 0433 01/03/25 0621 WBC -- 9.53 -- 11.98* 9.13 HB -- 9.0* -- 9.6* 10.2* HCT -- 27.7* -- 29.6* 31.2* PLT -- 274 -- 262 215 NA 142 -- 140 -- 140 K 4.2 -- 4.1 -- 4.1 CHLOR 106 -- 104 -- 103 CO2 26 -- 24 -- 27 BUN 39* -- 35* -- 18 CREAT 0.59* -- 0.58* -- 0.58* GLUC 208* -- 189* -- 207* CA 8.2* -- 8.6 -- 8.6 IMAGING Reviewed and discussed with the patient. IN-PATIENT MEDICATIONS: Current Facility-Administered Medications Medication Dose Route Frequency atorvastatin 20 mg tab(s) (LIPITOR) 20 mg ORAL DAILY levothyroxine 112 mcg tab(s) (SYNTHROID) 112 mcg ORAL DAILY NaCl 0.9% iv flush bag 20 mL INTRAVENOUS PRN HYDROmorphone 0.4 mg injection (DILAUDID) 0.4 mg INTRAVENOUS q 3 H PRN oxyCODONE IR 5-10 mg tab(s) (ROXICODONE) 5-10 mg ORAL q 3 H PRN acetaminophen 1,000 mg tab(s) (TYLENOL) 1,000 mg ORAL q 8 H ondansetron 4 mg tab(s) (ZOFRAN) 4 mg ORAL q 6 H PRN Or ondansetron (PF) 4 mg injection (ZOFRAN) 4 mg INTRAVENOUS q 6 H PRN magnesium hydroxide 400 mg/5 mL 30 mL (MOM) 30 mL ORAL DAILY PRN bisacodyl EC 10 mg tab(s) (DULCOLAX) 10 mg ORAL DAILY melatonin 1 mg tab(s) 1 mg ORAL DAILY (8 PM) aluminum-magnesium hydroxide-simethicone 200-200-20 mg/5 mL 30 mL 30 mL ORAL q 2 H PRN ferrous sulfate 325 mg tab(s) 325 mg ORAL DAILY wLUNCH ascorbic acid (vitamin C) 500 mg tab(s) (VITAMIN C) 500 mg ORAL BID w MEALS senna 17.2 mg tab(s) (SENOKOT) 17.2 mg ORAL AT BEDTIME multivitamin-ferrous fumarate-folic acid 1 tablet (CENTRUM) 1 tablet ORAL DAILY dextrose 40 % 15 g 15 g ORAL PRN Or glucagon 1 mg injection 1 mg INTRAMUSCULAR PRN Or dextrose 10% iv bolus 12.5 g INTRAVENOUS PRN insulin lispro injection (rapid acting) (ADMElog) SUBCUTANEOUS w MEALS insulin lispro injection (rapid acting) (ADMElog) SUBCUTANEOUS AT B (more content not included)...[facility] [id number] Telephone encounter Note* Telephone Encounter - Josue Aguilera MD - 01/05/2025 10:57 AM EST Please set up. [facility]02-24-2025 Telephone encounter Note* Telephone Encounter - Manuela Hernandez MA - 01/05/2025 9:30 AM EST See mychart message. Manuela Hernandez MA [facility]02-24-2025 NoteHNO ID: [id number] Author: ILEANA GIRON MD Service: Orthopaedic Surgery Author Type: Resident Type: Progress Notes Filed: 01/05/2025 06:49 Note Text: Inpatient Progress Note Orthopaedic Surgery Assessment 79 year old male who is s/p left total hip arthroplasty by Dr. Hough on 12/31/2024. Patient continues to do well orthopedically. He was evaluated by speech/swallow therapy and recommended pureed IDDSI Level 4 diet. Modified barium swallow study scheduled for today Plan - Weightbearing: As tolerated left lower extremity - Dressing: Silver - Drains: None - Zuñiga: Per nursing protocol - Diet: pureed IDDSI Level 4 diet per speech/swallow team, plan for Barium swallow study today - MIVF while NPO - HLIV when tolerating adequate PO - DVT Prophylaxis: 81 ASA BID, SCDs - Antibiotics: Perioperative Ancef - Cultures: None - Consults: PT/OT care management, rec home PT Dispo: PT recommending discharge home with home PT. he is not medically clear for discharge at this time until diet plan has been established. Barium swallow study scheduled for 01/05 Plan of care discussed with: Provider, RN, Patient. Rounding Subjective No o/n issues Pain well controlled. Denies nausea, vomiting, chest pain, shortness of breath. Objective Blood pressure 143/64, pulse (!) 54, temperature 36.4 ?C (97.5 ?F), temperature source Oral, resp. rate 18, height 177.8 cm (5' 10), weight 85.7 kg (189 lb), SpO2 98%. Physical Exam AAOx3, NAD Breathing comfortably at rest RRR to peripheral palpation left Lower Extremity Inspection: Dressing c/d/i. Appropriate postop swelling Palpation: TTP to surgical site Compartments: Soft, compressible Sensory: SILT to SP/DP/T/S/S distributions Motor: fires DF/PF/EHL Vascular: DP 2+ to palp; CR < 2 sec; foot warm AND well-perfused Lab Review Creatinine (mg/dL) Date Value 01/04/2025 0.58 (L) 01/03/2025 0.58 (L) 01/02/2025 0.64 (L) 09/12/2021 0.78 03/03/2021 0.80 08/30/2020 0.90 Sodium (mmol/L) Date Value 01/04/2025 140 01/03/2025 140 01/02/2025 138 09/12/2021 139 03/03/2021 140 08/30/2020 139 Potassium (mmol/L) Date Value 01/04/2025 4.1 01/03/2025 4.1 01/02/2025 3.6 (L) 09/12/2021 4.8 03/03/2021 4.6 08/30/2020 4.7 Hemoglobin (g/dL) Date Value 01/04/2025 9.6 (L) 01/03/2025 10.2 (L) 01/02/2025 10.0 (L) 09/12/2021 13.9 08/30/2020 15.0 09/08/2019 15.0 Hematocrit (%) Date Value 01/04/2025 29.6 (L) 01/03/2025 31.2 (L) 01/02/2025 30.2 (L) 09/12/2021 43.9 08/30/2020 46.1 09/08/2019 47.1 WBC (k/uL) Date Value 01/04/2025 11.98 (H) 01/03/2025 9.13 01/02/2025 8.96 09/12/2021 6.00 08/30/2020 7.15 09/08/2019 6.59 PT INR (no units) Date Value 02/15/2010 1.0 02/14/2010 1.0 02/13/2010 1.0 Glucose, Point of Care (mg/dL) Date Value 01/05/2025 216 (A) 01/04/2025 152 (A) 01/04/2025 240 (A) 01/04/2025 259 (A) 01/04/2025 213 (A) 01/04/2025 217 (A) Please scroll above for Assessment AND Plan. Plan of care discussed with: Provider, RN, Patient. Ileana Giron MD [facility] Orthopedics PGY-4 , Pager [phone] If after 5pm or before 6am, or if urgent, please page the orthopaedic on-call resident at: [phone] for [facility] patients [id number] for [facility] patients [id number] [facility] patients [id number] for [facility] patientsUniversity Hospitals Ely[facility] Medical [id number] NoteHNO ID: [id number] Author: KEITH SOTO MD Service: General Internal Medicine Author Type: Physician Type: Progress Notes Filed: 01/05/2025 14:44 Note Text: INTERNAL MEDICINE CONSULT PROGRESS NOTE SERVICE DATE: 01/04/2025 SERVICE TIME: 8:48 AM CONSULTING SERVICE: Internal Medicine Subjective INTERVAL HISTORY OF PRESENT ILLNESS: Mr. Pearl is a 79 year old male who presents for sp left total hip arthroplasty. Patient in bed, no complaints of pain, did have emesis during surgery, patient has suction for mucous. Patient has with a cough at times. Educated on use of IS every hour, monitor lung sounds, ambulation. Chest xray which was clear. Patient having trouble clearing fluids and medications. ST evaluation, barium swallow failed, patient diet changed per ST recommendations, prednisone given. Will follow up with barium on Sunday. Slight increase in white count, review IS with patient today. Patient reports improvement to swallowing, reports he feels more open in the back of his throat. Current Facility-Administered Medications Medication Dose Route Frequency methylPREDNISolone sod succinate(PF) 40 mg injection (SOLU-Medrol) 40 mg INTRAVENOUS q 12 H atorvastatin 20 mg tab(s) (LIPITOR) 20 mg ORAL DAILY levothyroxine 112 mcg tab(s) (SYNTHROID) 112 mcg ORAL DAILY aspirin, enteric coated 81 mg tab(s) 81 mg ORAL BID NaCl 0.9% iv flush bag 20 mL INTRAVENOUS PRN HYDROmorphone 0.4 mg injection (DILAUDID) 0.4 mg INTRAVENOUS q 3 H PRN oxyCODONE IR 5-10 mg tab(s) (ROXICODONE) 5-10 mg ORAL q 3 H PRN acetaminophen 1,000 mg tab(s) (TYLENOL) 1,000 mg ORAL q 8 H ondansetron 4 mg tab(s) (ZOFRAN) 4 mg ORAL q 6 H PRN Or ondansetron (PF) 4 mg injection (ZOFRAN) 4 mg INTRAVENOUS q 6 H PRN magnesium hydroxide 400 mg/5 mL 30 mL (MOM) 30 mL ORAL DAILY PRN bisacodyl EC 10 mg tab(s) (DULCOLAX) 10 mg ORAL DAILY melatonin 1 mg tab(s) 1 mg ORAL DAILY (8 PM) aluminum-magnesium hydroxide-simethicone 200-200-20 mg/5 mL 30 mL 30 mL ORAL q 2 H PRN ferrous sulfate 325 mg tab(s) 325 mg ORAL DAILY wLUNCH ascorbic acid (vitamin C) 500 mg tab(s) (VITAMIN C) 500 mg ORAL BID w MEALS senna 17.2 mg tab(s) (SENOKOT) 17.2 mg ORAL AT BEDTIME multivitamin-ferrous fumarate-folic acid 1 tablet (CENTRUM) 1 tablet ORAL DAILY dextrose 40 % 15 g 15 g ORAL PRN Or glucagon 1 mg injection 1 mg INTRAMUSCULAR PRN Or dextrose 10% iv bolus 12.5 g INTRAVENOUS PRN insulin lispro injection (rapid acting) (ADMElog) SUBCUTANEOUS w MEALS insulin lispro injection (rapid acting) (ADMElog) SUBCUTANEOUS AT BEDTIME phenol 1 [place] (CHLORASEPTIC) 1 [place] MUCOUS MEMBRANE (TOPICAL MOUTH AND THROAT) q 2 H PRN Objective PHYSICAL EXAM: Patient Vitals for the past 24 hrs: BP Temp Temp src Pulse Resp SpO2 01/04/25 0724 128/55 36.4 ?C (97.5 ?F) Oral 67 18 95 % 01/04/25 0000 126/55 36.4 ?C (97.6 ?F) Oral (!) 57 16 98 % 01/03/25 1524 124/63 36.5 ?C (97.7 ?F) Oral 69 16 96 % Body mass index is 27.12 kg/m?. GENERAL: Alert, no distress, cooperative SKIN: Skin color, texture, turgor normal. No rashes or lesions. OROPHARYNX: Lips, mucosa, and tongue are normal.Teeth and gums, normal. Oropharynx normal. NECK: No jugulovenous distention, No carotid bruits, Carotid pulse normal contour, Supple LUNGS: Lungs clear to auscultation. Good diaphragmatic excursion. CARDIAC: Normal S1 and S2; no rubs, murmurs, or gallops ABDOMEN: Abdomen soft, non-tender, BS normal, No masses or organomegaly EXTREMITIES: Extremities normal, no deformities, edema, clubbing or skin discoloration. Good capillary refill., No ulcers NEURO: Alert, oriented X 3, Gait normal. Non-focal. Reflexes normal and symmetric. Sensation grossly intact., Cranial nerves II-XII intact PULSES: 2+ radial, 2+ carotid DATA: Diagnostic tests reviewed for today's visit: Most recent labs Glucose (mg/dL) Date Value 01/03/2025 207 09/12/2021 117 Potassium (mmol/L) Date Value 01/03/2025 4.1 09/12/2021 4.8 Sodium (mmol/L) Date Value 01/03/2025 140 09/12/2021 139 Chloride (mmol/L) Date Value 01/03/2025 103 09/12/2021 102 CO2 (mmol/L) Date Value 01/03/2025 27 09/12/2021 25 Creatinine (mg/dL) Date Value 01/03/2025 0.58 09/12/2021 0.78 BUN (mg/dL) Date Value 01/03/2025 18 09/12/2021 16 Anion Gap (mmol/L) Date Value 01/03/2025 10 09/12/2021 12 Calcium (mg/dL) Date Value 09/12/2021 9.4 Calcium, Total (mg/dL) Date Value 01/03/2025 8.6 Hemoglobin (g/dL) Date Value 01/04/2025 9.6 09/12/2021 13.9 Hematocrit (%) Date Value 01/04/2025 29.6 09/12/2021 43.9 WBC (k/uL) Date Value 01/04/2025 11.98 09/12/2021 6.00 Impression/Recommendations Principal Problem: Dysphagia (POA: Yes) Assessment AND Plan: Follow up barium swallow, steroids started Sinus bradycardia (POA: Yes) Assessment AND Plan: Monitor vitals,HR 56 today Essential hypertension (POA: Yes) Assessment AND Plan: Monitor vitals, follow (more content not included)... [facility] [id number] NoteHNO ID: [id number] Author: ROSI MARIE MD Service: Orthopaedic Surgery Author Type: Resident Type: Progress Notes Filed: 01/04/2025 08:09 Note Text: Inpatient Progress Note Orthopaedic Surgery Assessment 79 year old male who is s/p left total hip arthroplasty by Dr. Hough on 12/31/2024. Patient continues to do well orthopedically. He was evaluated by speech/swallow therapy and recommended pureed IDDSI Level 4 diet. Modified barium swallow study scheduled for 01/05. Plan - Weightbearing: As tolerated left lower extremity - Dressing: Silver - Drains: None - Zuñiga: Per nursing protocol - Diet: pureed IDDSI Level 4 diet per speech/swallow team, plan for Barium swallow study 01/05 - MIVF while NPO - HLIV when tolerating adequate PO - DVT Prophylaxis: 81 ASA BID, SCDs - Antibiotics: Perioperative Ancef - Cultures: None - Consults: PT/OT care management, rec home PT Dispo: PT recommending discharge home with home PT. he is not medically clear for discharge at this time until diet plan has been established. Barium swallow study scheduled for 01/05 Plan of care discussed with: Provider, RN, Patient. Rounding Subjective Tolerated pureed diet well. No o/n issues Pain well controlled. Denies nausea, vomiting, chest pain, shortness of breath. Objective Blood pressure 128/55, pulse 67, temperature 36.4 ?C (97.5 ?F), temperature source Oral, resp. rate 18, height 177.8 cm (5' 10), weight 85.7 kg (189 lb), SpO2 95%. Physical Exam AAOx3, NAD Breathing comfortably at rest RRR to peripheral palpation left Lower Extremity Inspection: Dressing c/d/i. Appropriate postop swelling Palpation: TTP to surgical site Compartments: Soft, compressible Sensory: SILT to SP/DP/T/S/S distributions Motor: fires DF/PF/EHL Vascular: DP 2+ to palp; CR < 2 sec; foot warm AND well-perfused Lab Review Creatinine (mg/dL) Date Value 01/03/2025 0.58 (L) 01/02/2025 0.64 (L) 01/01/2025 0.74 09/12/2021 0.78 03/03/2021 0.80 08/30/2020 0.90 Sodium (mmol/L) Date Value 01/03/2025 140 01/02/2025 138 01/01/2025 140 09/12/2021 139 03/03/2021 140 08/30/2020 139 Potassium (mmol/L) Date Value 01/03/2025 4.1 01/02/2025 3.6 (L) 01/01/2025 4.1 09/12/2021 4.8 03/03/2021 4.6 08/30/2020 4.7 Hemoglobin (g/dL) Date Value 01/04/2025 9.6 (L) 01/03/2025 10.2 (L) 01/02/2025 10.0 (L) 09/12/2021 13.9 08/30/2020 15.0 09/08/2019 15.0 Hematocrit (%) Date Value 01/04/2025 29.6 (L) 01/03/2025 31.2 (L) 01/02/2025 30.2 (L) 09/12/2021 43.9 08/30/2020 46.1 09/08/2019 47.1 WBC (k/uL) Date Value 01/04/2025 11.98 (H) 01/03/2025 9.13 01/02/2025 8.96 09/12/2021 6.00 08/30/2020 7.15 09/08/2019 6.59 PT INR (no units) Date Value 02/15/2010 1.0 02/14/2010 1.0 02/13/2010 1.0 Glucose, Point of Care (mg/dL) Date Value 01/04/2025 217 (A) 01/03/2025 228 (A) 01/03/2025 236 (A) 01/03/2025 193 (A) 01/03/2025 222 (A) 01/02/2025 197 (A) Please scroll above for Assessment AND Plan. Plan of care discussed with: Provider, RN, Patient. Rosi Marie MD Orthopaedic Surgery PGY-2 For [facility] [place] floor [place] issues [place] questions[place] [phone] If unable to reach the PA team between 6 am and 5 pm, please page me at [phone] At all other times, or if urgent, please page the orthopaedic on-call resident at: 2BONE ([phone]) for [facility] patients [id number] for [facility] patients [id number] for [facility] patients [address] [facility] patients [id number] for [facility] patientsUniversity Hospitals Elyria Medical [id number] NoteHNO ID: [id number] Author: CAMILA ISLAS RN Service: Care Management Author Type: Registered Nurse Type: Care Mgt Progress Note Filed: 01/04/2025 08:07 Note Text: CARE MANAGEMENT PROGRESS NOTE SERVICE DATE: 01/04/2025 SERVICE TIME: 8:00am LOS: [address] [facility] home care updated on plan for barium swallow study on Sunday. SIGNATURE: Camila Islas RN PATIENT NAME: Santa Pearl DATE: January 04, 2025 TIME: 8:06 [facility]02-22-2025 NoteHNO ID: [id number] Author: KEITH SOTO MD Service: General Internal Medicine Author Type: Physician Type: Progress Notes Filed: 01/03/2025 11:23 Note Text: PROGRESS NOTE - INTERNAL MEDICINE PATIENT NAME: Santa Pearl SERVICE DATE: January 03, 2025 SERVICE TIME: 11:22 AM PCP: Josue Aguilera MD ADMITTING PHYSICIAN: Ravin Hough MD MD INTERVAL HISTORY OF PRESENT ILLNESS: Patient seen today status post left hip arthroplasty postop complicated by difficulty in swallowing patient was seen by speech patient tolerating liquid diet ambulating well pain is REVIEW OF SYSTEMS: GENERAL: No weight loss, malaise or fevers RESPIRATORY: Negative for cough, hemoptysis, wheezing, COPD, dyspnea or shortness of breath CARDIOVASCULAR: Negative for chest pain, leg swelling, hypertension, CHF or palpitations GI: No nausea, vomiting, or diarrhea : No history of dysuria, frequency or incontinence PSYCH: Negative for sleep disturbance, mood disorder and recent psychosocial stressors. ENDOCRINE: Negative for cold or heat intolerance, polyuria, polydipsia and goiter All other reviewed and negative other than HPI. PRIOR TO ADMISSION MEDICATIONS: levothyroxine (SYNTHROID) 112 mcg tablet, Take 1 tablet by mouth once daily., Disp: 90 tablet, Rfl: 3, 12/31/2024 at 4:30 AM atorvastatin (LIPITOR) 20 mg tablet, Take 1 tablet by mouth once daily., Disp: 90 tablet, Rfl: 3, 12/30/2024 lisinopril (ZESTRIL) 5 mg tablet, Take 1 tablet by mouth once daily., Disp: 90 tablet, Rfl: 3, 12/31/2024 at 4:30 AM aspirin, enteric coated (ASPIRIN, ENTERIC COATED) 81 mg EC tablet, Take 1 tablet by mouth once daily., Disp: 30 tablet, Rfl: 11, 12/31/2024 at 4:30 AM metFORMIN ER (GLUCOPHAGE XR) 500 mg 24 hr tablet, Take 1 tablet by mouth daily with breakfast., Disp: 90 tablet, Rfl: 3, 12/30/2024 Noon benzonatate (TESSALON PERLE) 100 mg capsule, Take 1 capsule by mouth three times a day as needed., Disp: 30 capsule, Rfl: 0 nitroglycerin sublingual (NITROQUICK) 0.4 mg SL tablet, Dissolve 1 tablet under the tongue every 5 minutes as needed for chest pain, up to 3 doses. If no relief, call 911., Disp: 3 Bottle of 25, Rfl: 1 INs AND OUT SUMMARY: Intake/Output Summary (Last 24 hours) at 01/03/2025 1122 Last data filed at 01/03/2025 0900 Gross per 24 hour Intake 0 ml Output 800 ml Net -800 ml PHYSICAL EXAM: Patient Vitals for the past 24 hrs: BP Temp Temp src Pulse Resp SpO2 01/03/25 0728 130/56 36.5 ?C (97.7 ?F) Oral 63 18 93 % 01/03/25 0257 178/82 36.4 ?C (97.5 ?F) Oral 71 18 99 % 01/02/25 2344 142/65 -- Oral 68 16 94 % 01/02/25 1632 113/67 36.8 ?C (98.2 ?F) Oral 68 16 95 % GENERAL: Alert, no distress, cooperative SKIN: Skin color, texture, turgor normal. No rashes or lesions. NECK: No jugulovenous distention, No carotid bruits, Carotid pulse normal contour, Supple LUNGS: Lungs clear to auscultation. Good diaphragmatic excursion. CARDIAC: Normal S1 and S2; no rubs, murmurs, or gallops ABDOMEN: Abdomen soft, non-tender. BS normal. No masses or organomegaly. EXTREMETIES: Extremities normal. No deformities, edema, clubbing or skin discoloration. NEURO: Alert, oriented X 3, Cranial nerves II-XII intact, Gait normal. Reflexes normal and symmetric. Sensation grossly intact. PULSES: 2+ radial, 2+ carotid DATA: Recent Labs 01/03/25 0621 01/02/25 0629 01/01/25 0637 WBC 9.13 8.96 9.31 HB 10.2* 10.0* 10.7* HCT 31.2* 30.2* 32.7* PLT 215 173 193 NA 140 138 140 K 4.1 3.6* 4.1 CHLOR 103 102 103 CO2 27 26 27 BUN 18 13 14 CREAT 0.58* 0.64* 0.74 GLUC 207* 145* 149* CA 8.6 8.0* 8.3* IMAGING Reviewed and discussed with the patient. IN-PATIENT MEDICATIONS: Current Facility-Administered Medications Medication Dose Route Frequency atorvastatin 20 mg tab(s) (LIPITOR) 20 mg ORAL DAILY levothyroxine 112 mcg tab(s) (SYNTHROID) 112 mcg ORAL DAILY aspirin, enteric coated 81 mg tab(s) 81 mg ORAL BID NaCl 0.9% iv flush bag 20 mL INTRAVENOUS PRN HYDROmorphone 0.4 mg injection (DILAUDID) 0.4 mg INTRAVENOUS q 3 H PRN oxyCODONE IR 5-10 mg tab(s) (ROXICODONE) 5-10 mg ORAL q 3 H PRN acetaminophen 1,000 mg tab(s) (TYLENOL) 1,000 mg ORAL q 8 H ondansetron 4 mg tab(s) (ZOFRAN) 4 mg ORAL q 6 H PRN Or ondansetron (PF) 4 mg injection (ZOFRAN) 4 mg INTRAVENOUS q 6 H PRN magnesium hydroxide 400 mg/5 mL 30 mL (MOM) 30 mL ORAL DAILY PRN bisacodyl EC 10 mg tab(s) (DULCOLAX) 10 mg ORAL DAILY melatonin 1 mg tab(s) 1 mg ORAL DAILY (8 PM) aluminum-magnesium hydroxide-simethicone 200-200-20 mg/5 mL 30 mL 30 mL ORAL q 2 H PRN ferrous sulfate 325 mg tab(s) 325 mg ORAL DAILY wLUNCH ascorbic acid (vitamin C) 500 mg tab(s) (VITAMIN C) 500 mg ORAL BID w MEALS senna 17.2 mg tab(s) (SENOKOT) 17.2 mg ORAL AT BEDTIME multivitamin-ferrous fumarate-folic acid 1 tablet (CENTRUM) 1 tablet ORAL DAILY dextrose 40 % 15 g 15 g ORAL PRN Or glucagon 1 mg injection 1 mg INTRAMUSCULAR ME (more content not included)... [facility] [id number] NoteHNO ID: [id number] Author: ROSI MARIE MD Service: Orthopaedic Surgery Author Type: Resident Type: Progress Notes Filed: 01/03/2025 08:56 Note Text: Inpatient Progress Note Orthopaedic Surgery Assessment 79 year old male who is s/p left total hip arthroplasty by Dr. Hough on 12/31/2024. The patient did well overnight. He was evaluated by speech/swallow therapy and recommended pureed IDDSI Level 4 diet. Modified barium swallow study scheduled for 01/05. Plan - Weightbearing: As tolerated left lower extremity - Dressing: Silver - Drains: None - Zuñiga: Per nursing protocol - Diet: pureed IDDSI Level 4 diet per speech/swallow team, plan for Barium swallow study 01/05 - MIVF while NPO - HLIV when tolerating adequate PO - DVT Prophylaxis: 81 ASA BID, SCDs - Antibiotics: Perioperative Ancef - Cultures: None - Consults: PT/OT care management, rec home PT Dispo: PT recommending discharge home with home PT. he is not medically clear for discharge at this time until diet plan has been established. Barium swallow study scheduled for 01/05 Plan of care discussed with: Provider, RN, Patient. Rounding Subjective Tolerated pureed diet well. No o/n issues Pain well controlled. Denies nausea, vomiting, chest pain, shortness of breath. Objective Blood pressure 130/56, pulse 63, temperature 36.5 ?C (97.7 ?F), temperature source Oral, resp. rate 18, height 177.8 cm (5' 10), weight 85.7 kg (189 lb), SpO2 93%. Physical Exam AAOx3, NAD Breathing comfortably at rest RRR to peripheral palpation left Lower Extremity Inspection: Dressing c/d/i. Appropriate postop swelling Palpation: TTP to surgical site Compartments: Soft, compressible Sensory: SILT to SP/DP/T/S/S distributions Motor: fires DF/PF/EHL Vascular: DP 2+ to palp; CR < 2 sec; foot warm AND well-perfused Lab Review Creatinine (mg/dL) Date Value 01/03/2025 0.58 (L) 01/02/2025 0.64 (L) 01/01/2025 0.74 09/12/2021 0.78 03/03/2021 0.80 08/30/2020 0.90 Sodium (mmol/L) Date Value 01/03/2025 140 01/02/2025 138 01/01/2025 140 09/12/2021 139 03/03/2021 140 08/30/2020 139 Potassium (mmol/L) Date Value 01/03/2025 4.1 01/02/2025 3.6 (L) 01/01/2025 4.1 09/12/2021 4.8 03/03/2021 4.6 08/30/2020 4.7 Hemoglobin (g/dL) Date Value 01/03/2025 10.2 (L) 01/02/2025 10.0 (L) 01/01/2025 10.7 (L) 09/12/2021 13.9 08/30/2020 15.0 09/08/2019 15.0 Hematocrit (%) Date Value 01/03/2025 31.2 (L) 01/02/2025 30.2 (L) 01/01/2025 32.7 (L) 09/12/2021 43.9 08/30/2020 46.1 09/08/2019 47.1 WBC (k/uL) Date Value 01/03/2025 9.13 01/02/2025 8.96 01/01/2025 9.31 09/12/2021 6.00 08/30/2020 7.15 09/08/2019 6.59 PT INR (no units) Date Value 02/15/2010 1.0 02/14/2010 1.0 02/13/2010 1.0 Glucose, Point of Care (mg/dL) Date Value 01/03/2025 222 (A) 01/02/2025 197 (A) 01/02/2025 198 (A) 01/02/2025 149 (A) 01/02/2025 156 (A) 01/01/2025 148 (A) Please scroll above for Assessment AND Plan. Plan of care discussed with: Provider, RN, Patient. Rosi Marie MD Orthopaedic Surgery PGY-2 For [place] floor [place] issues [place] questions[place] [phone] If unable to reach the PA team between 6 am and 5 pm, please page me at [phone] At all other times, or if urgent, please page the orthopaedic on-call resident at: 2BONE ([id number]) for [facility] patients [id number] for [facility] patients [id number] for [facility] patients [id number] [facility] patients [id number] for [facility] patientsUniversity Hospitals Elyria Medical [id number] NoteHNO ID: [id number] Author: KEITH SOTO MD Service: General Internal Medicine Author Type: Physician Type: Progress Notes Filed: 01/03/2025 11:22 Note Text: INTERNAL MEDICINE CONSULT PROGRESS NOTE SERVICE DATE: 01/02/2025 SERVICE TIME: 1:17 PM CONSULTING SERVICE: Internal Medicine Subjective INTERVAL HISTORY OF PRESENT ILLNESS: Mr. Pearl is a 79 year old male who presents for sp left total hip arthroplasty. Patient in bed, no complaints of pain, did have emesis during surgery, patient has suction for mucous. Patient has with a cough at times. Educated on use of IS every hour, monitor lung sounds, ambulation. Chest xray which was clear. Patient having trouble clearing fluids and medications. ST evaluation, barium swallow failed, patient diet changed per ST recommendations, prednisone given. Will follow up with barium on Sunday. Current Facility-Administered Medications Medication Dose Route Frequency methylPREDNISolone sod succinate(PF) 40 mg injection (SOLU-Medrol) 40 mg INTRAVENOUS q 12 H dextrose 5% in NaCl 0.45% iv infusion 50 mL/hr INTRAVENOUS CONTINUOUS atorvastatin 20 mg tab(s) (LIPITOR) 20 mg ORAL DAILY levothyroxine 112 mcg tab(s) (SYNTHROID) 112 mcg ORAL DAILY aspirin, enteric coated 81 mg tab(s) 81 mg ORAL BID NaCl 0.9% iv flush bag 20 mL INTRAVENOUS PRN HYDROmorphone 0.4 mg injection (DILAUDID) 0.4 mg INTRAVENOUS q 3 H PRN oxyCODONE IR 5-10 mg tab(s) (ROXICODONE) 5-10 mg ORAL q 3 H PRN acetaminophen 1,000 mg tab(s) (TYLENOL) 1,000 mg ORAL q 8 H keTORolac 15 mg injection (Toradol) 15 mg INTRAVENOUS q 8 H ondansetron 4 mg tab(s) (ZOFRAN) 4 mg ORAL q 6 H PRN Or ondansetron (PF) 4 mg injection (ZOFRAN) 4 mg INTRAVENOUS q 6 H PRN magnesium hydroxide 400 mg/5 mL 30 mL (MOM) 30 mL ORAL DAILY PRN bisacodyl EC 10 mg tab(s) (DULCOLAX) 10 mg ORAL DAILY melatonin 1 mg tab(s) 1 mg ORAL DAILY (8 PM) aluminum-magnesium hydroxide-simethicone 200-200-20 mg/5 mL 30 mL 30 mL ORAL q 2 H PRN ferrous sulfate 325 mg tab(s) 325 mg ORAL DAILY wLUNCH ascorbic acid (vitamin C) 500 mg tab(s) (VITAMIN C) 500 mg ORAL BID w MEALS senna 17.2 mg tab(s) (SENOKOT) 17.2 mg ORAL AT BEDTIME multivitamin-ferrous fumarate-folic acid 1 tablet (CENTRUM) 1 tablet ORAL DAILY dextrose 40 % 15 g 15 g ORAL PRN Or glucagon 1 mg injection 1 mg INTRAMUSCULAR PRN Or dextrose 10% iv bolus 12.5 g INTRAVENOUS PRN insulin lispro injection (rapid acting) (ADMElog) SUBCUTANEOUS w MEALS insulin lispro injection (rapid acting) (ADMElog) SUBCUTANEOUS AT BEDTIME phenol 1 [place] (CHLORASEPTIC) 1 [place] MUCOUS MEMBRANE (TOPICAL MOUTH AND THROAT) q 2 H PRN Objective PHYSICAL EXAM: Patient Vitals for the past 24 hrs: BP Temp Temp src Pulse Resp SpO2 01/02/25 0758 125/53 36.2 ?C (97.1 ?F) Temporal Art 66 17 97 % 01/01/25 2340 149/65 36.5 ?C (97.7 ?F) Oral 70 18 97 % 01/01/25 1641 135/64 37.3 ?C (99.1 ?F) Oral 73 16 97 % 01/01/25 1607 140/60 37.5 ?C (99.5 ?F) Oral 75 18 98 % Body mass index is 27.12 kg/m?. GENERAL: Alert, no distress, cooperative SKIN: Skin color, texture, turgor normal. No rashes or lesions. OROPHARYNX: Lips, mucosa, and tongue are normal.Teeth and gums, normal. Oropharynx normal. NECK: No jugulovenous distention, No carotid bruits, Carotid pulse normal contour, Supple LUNGS: Lungs clear to auscultation. Good diaphragmatic excursion. CARDIAC: Normal S1 and S2; no rubs, murmurs, or gallops ABDOMEN: Abdomen soft, non-tender, BS normal, No masses or organomegaly EXTREMITIES: Extremities normal, no deformities, edema, clubbing or skin discoloration. Good capillary refill., No ulcers NEURO: Alert, oriented X 3, Gait normal. Non-focal. Reflexes normal and symmetric. Sensation grossly intact., Cranial nerves II-XII intact PULSES: 2+ radial, 2+ carotid DATA: Diagnostic tests reviewed for today's visit: Most recent labs Glucose (mg/dL) Date Value 01/02/2025 145 09/12/2021 117 Potassium (mmol/L) Date Value 01/02/2025 3.6 09/12/2021 4.8 Sodium (mmol/L) Date Value 01/02/2025 138 09/12/2021 139 Chloride (mmol/L) Date Value 01/02/2025 102 09/12/2021 102 CO2 (mmol/L) Date Value 01/02/2025 26 09/12/2021 25 Creatinine (mg/dL) Date Value 01/02/2025 0.64 09/12/2021 0.78 BUN (mg/dL) Date Value 01/02/2025 13 09/12/2021 16 Anion Gap (mmol/L) Date Value 01/02/2025 10 09/12/2021 12 Calcium (mg/dL) Date Value 09/12/2021 9.4 Calcium, Total (mg/dL) Date Value 01/02/2025 8.0 Hemoglobin (g/dL) Date Value 01/02/2025 10.0 09/12/2021 13.9 Hematocrit (%) Date Value 01/02/2025 30.2 09/12/2021 43.9 WBC (k/uL) Date Value 01/02/2025 8.96 09/12/2021 6.00 Impression/Recommendations Principal Problem: Dysphagia (POA: Yes) Assessment AND Plan: Follow up barium swallow, steroids started Sinus bradycardia (POA: Yes) Assessment AND Plan: Monitor vitals,HR 56 today Essential hypertension (POA: Yes) Assessment A (more content not included)...[facility] [id number] NoteHNO ID: [id number] Author: ILEANA GIRON MD Service: Orthopaedic Surgery Author Type: Resident Type: Progress Notes Filed: 01/02/2025 10:39 Note Text: Inpatient Progress Note Orthopaedic Surgery Assessment 79 year old male who is s/p left total hip arthroplasty by Dr. Hough on 12/31/2024. The patient did well overnight. He was evaluated by speech/swallow therapy and determined to be at risk for aspiration. He was n.p.o. overnight. Has had improvement in throat pain overnight. Will have speech/swallow reevaluate today. Plan - Weightbearing: As tolerated left lower extremity - Dressing: Silver - Drains: None - Zuñiga: Per nursing protocol - Diet: NPO overnight per speech/swallow team recommendations. Appreciate their recommendations today on advancement of diet - MIVF while NPO - HLIV when tolerating adequate PO - DVT Prophylaxis: 81 ASA BID, SCDs - Antibiotics: Perioperative Ancef - Cultures: None - Consults: PT/OT care management, appreciate recs Dispo: PT recommending discharge home with home PT. he is not medically clear for discharge at this time until diet plan has been established Plan of care discussed with: Provider, RN, Patient. Rounding Subjective No o/n issues Pain well controlled. Denies nausea, vomiting, chest pain, shortness of breath. Objective Blood pressure 149/65, pulse 70, temperature 36.5 ?C (97.7 ?F), temperature source Oral, resp. rate 18, height 177.8 cm (5' 10), weight 85.7 kg (189 lb), SpO2 97%. Physical Exam AAOx3, NAD Breathing comfortably at rest RRR to peripheral palpation left Lower Extremity Inspection: Dressing c/d/i. Appropriate postop swelling Palpation: TTP to surgical site Compartments: Soft, compressible Sensory: SILT to SP/DP/T/S/S distributions Motor: fires DF/PF/EHL Vascular: DP 2+ to palp; CR < 2 sec; foot warm AND well-perfused Lab Review Creatinine (mg/dL) Date Value 01/01/2025 0.74 12/10/2024 0.74 10/02/2023 0.74 09/12/2021 0.78 03/03/2021 0.80 08/30/2020 0.90 Sodium (mmol/L) Date Value 01/01/2025 140 12/10/2024 137 10/02/2023 139 09/12/2021 139 03/03/2021 140 08/30/2020 139 Potassium (mmol/L) Date Value 01/01/2025 4.1 12/10/2024 4.4 10/02/2023 4.2 09/12/2021 4.8 03/03/2021 4.6 08/30/2020 4.7 Hemoglobin (g/dL) Date Value 01/01/2025 10.7 (L) 12/10/2024 13.0 10/02/2023 13.9 09/12/2021 13.9 08/30/2020 15.0 09/08/2019 15.0 Hematocrit (%) Date Value 01/01/2025 32.7 (L) 12/10/2024 38.9 (L) 10/02/2023 43.0 09/12/2021 43.9 08/30/2020 46.1 09/08/2019 47.1 WBC (k/uL) Date Value 01/01/2025 9.31 12/10/2024 6.64 10/02/2023 8.13 09/12/2021 6.00 08/30/2020 7.15 09/08/2019 6.59 PT INR (no units) Date Value 02/15/2010 1.0 02/14/2010 1.0 02/13/2010 1.0 Glucose, Point of Care (mg/dL) Date Value 01/01/2025 148 (A) 01/01/2025 133 (A) 01/01/2025 155 (A) 01/01/2025 160 (A) 01/01/2025 178 (A) 12/31/2024 135 (A) Please scroll above for Assessment AND Plan. Plan of care discussed with: Provider, RN, Patient. Ileana Giron MD [facility] PGY-4 , Pager [phone] If after 5pm or before 6am, or if urgent, please page the orthopaedic on-call resident at: [phone] for [facility] patients [id number] for [facility] patients [address] [facility] patients [address] for [facility] patientsUniversity Hospitals Elyria Medical [id number] NoteHNO ID: [id number] Author: KEITH SOTO MD Service: General Internal Medicine Author Type: Physician Type: Progress Notes Filed: 01/01/2025 21:53 Note Text: INTERNAL MEDICINE CONSULT PROGRESS NOTE SERVICE DATE: 01/01/2025 SERVICE TIME: 2:13 PM CONSULTING SERVICE: Internal Medicine Subjective INTERVAL HISTORY OF PRESENT ILLNESS: Mr. Pearl is a 79 year old male who presents for sp left total hip arthroplasty. Patient in bed, no complaints of pain, did have emesis during surgery, patient has suction for mucous. Patient has with a cough at times. Educated on use of IS every hour, monitor lung sounds, ambulation. Chest xray which was clear. Patient having trouble clearing fluids and medications. ST evaluation, recommended to have barium swallow. Current Facility-Administered Medications Medication Dose Route Frequency atorvastatin 20 mg tab(s) (LIPITOR) 20 mg ORAL DAILY levothyroxine 112 mcg tab(s) (SYNTHROID) 112 mcg ORAL DAILY aspirin, enteric coated 81 mg tab(s) 81 mg ORAL BID NaCl 0.9% iv flush bag 20 mL INTRAVENOUS PRN HYDROmorphone 0.4 mg injection (DILAUDID) 0.4 mg INTRAVENOUS q 3 H PRN oxyCODONE IR 5-10 mg tab(s) (ROXICODONE) 5-10 mg ORAL q 3 H PRN acetaminophen 1,000 mg tab(s) (TYLENOL) 1,000 mg ORAL q 8 H keTORolac 15 mg injection (Toradol) 15 mg INTRAVENOUS q 8 H ondansetron 4 mg tab(s) (ZOFRAN) 4 mg ORAL q 6 H PRN Or ondansetron (PF) 4 mg injection (ZOFRAN) 4 mg INTRAVENOUS q 6 H PRN magnesium hydroxide 400 mg/5 mL 30 mL (MOM) 30 mL ORAL DAILY PRN melatonin 1 mg tab(s) 1 mg ORAL DAILY (8 PM) aluminum-magnesium hydroxide-simethicone 200-200-20 mg/5 mL 30 mL 30 mL ORAL q 2 H PRN ferrous sulfate 325 mg tab(s) 325 mg ORAL DAILY wLUNCH ascorbic acid (vitamin C) 500 mg tab(s) (VITAMIN C) 500 mg ORAL BID w MEALS senna 17.2 mg tab(s) (SENOKOT) 17.2 mg ORAL AT BEDTIME multivitamin-ferrous fumarate-folic acid 1 tablet (CENTRUM) 1 tablet ORAL DAILY potassium chloride ER 20-40 mEq tab(s) (KLOR-CON) 20-40 mEq ORAL PRN Or potassium chloride iv piggyback 20 mEq/100 mL 20 mEq INTRAVENOUS PRN dextrose 40 % 15 g 15 g ORAL PRN Or glucagon 1 mg injection 1 mg INTRAMUSCULAR PRN Or dextrose 10% iv bolus 12.5 g INTRAVENOUS PRN insulin lispro injection (rapid acting) (ADMElog) SUBCUTANEOUS w MEALS insulin lispro injection (rapid acting) (ADMElog) SUBCUTANEOUS AT BEDTIME phenol 1 [place] (CHLORASEPTIC) 1 [place] MUCOUS MEMBRANE (TOPICAL MOUTH AND THROAT) q 2 H PRN Objective PHYSICAL EXAM: Patient Vitals for the past 24 hrs: BP Temp Temp src Pulse Resp SpO2 01/01/25 1158 129/58 37.1 ?C (98.8 ?F) Oral 72 18 94 % 01/01/25 0730 135/56 36.6 ?C (97.9 ?F) Oral 71 18 95 % 01/01/25 0315 145/57 36.9 ?C (98.4 ?F) Oral 75 18 98 % 12/31/24 2317 106/51 -- -- 62 -- -- 12/31/24 2305 (!) 78/37 37 ?C (98.6 ?F) Oral 60 14 95 % 12/31/24 1949 115/57 37.2 ?C (99 ?F) Oral 70 16 96 % 12/31/24 1523 142/61 36.9 ?C (98.4 ?F) Oral 70 18 100 % Body mass index is 27.12 kg/m?. GENERAL: Alert, no distress, cooperative SKIN: Skin color, texture, turgor normal. No rashes or lesions. OROPHARYNX: Lips, mucosa, and tongue are normal.Teeth and gums, normal. Oropharynx normal. NECK: No jugulovenous distention, No carotid bruits, Carotid pulse normal contour, Supple LUNGS: Lungs clear to auscultation. Good diaphragmatic excursion. CARDIAC: Normal S1 and S2; no rubs, murmurs, or gallops ABDOMEN: Abdomen soft, non-tender, BS normal, No masses or organomegaly EXTREMITIES: Extremities normal, no deformities, edema, clubbing or skin discoloration. Good capillary refill., No ulcers NEURO: Alert, oriented X 3, Gait normal. Non-focal. Reflexes normal and symmetric. Sensation grossly intact., Cranial nerves II-XII intact PULSES: 2+ radial, 2+ carotid DATA: Diagnostic tests reviewed for today's visit: Most recent labs Glucose (mg/dL) Date Value 01/01/2025 149 09/12/2021 117 Potassium (mmol/L) Date Value 01/01/2025 4.1 09/12/2021 4.8 Sodium (mmol/L) Date Value 01/01/2025 140 09/12/2021 139 Chloride (mmol/L) Date Value 01/01/2025 103 09/12/2021 102 CO2 (mmol/L) Date Value 01/01/2025 27 09/12/2021 25 Creatinine (mg/dL) Date Value 01/01/2025 0.74 09/12/2021 0.78 BUN (mg/dL) Date Value 01/01/2025 14 09/12/2021 16 Anion Gap (mmol/L) Date Value 01/01/2025 10 09/12/2021 12 Calcium (mg/dL) Date Value 09/12/2021 9.4 Calcium, Total (mg/dL) Date Value 01/01/2025 8.3 Hemoglobin (g/dL) Date Value 01/01/2025 10.7 09/12/2021 13.9 Hematocrit (%) Date Value 01/01/2025 32.7 09/12/2021 43.9 WBC (k/uL) Date Value 01/01/2025 9.31 09/12/2021 6.00 Impression/Recommendations Active Problems: Sinus bradycardia (POA: Yes) Assessment AND Plan: Monitor vitals,HR 56 today Essential hypertension (POA: Yes) Assessment AND Plan: Monitor vitals, follow medication plan. Controlled type 2 diabetes mellitus without complication, without (more content not included)...[facility] [id number] Telephone encounter Note* Telephone Encounter - Jonathan Davalos PSS - 01/01/2025 10:34 AM EST Date/Time: 01/01/2025 10:34 AM Spoke with Patient @ phone #: [phone] - Preferred # for contact: [phone] or [phone] Have you received help from a home care company in the last 60 days? No Are you agreeable to [facility] services? Yes What address will we be seeing you at? [address] [facility] [address] Do you have any upcoming appointments or things we need to schedule around? No Do you have a teachable CG or can you manage your care independently? Yes Who? self & spouse Have you received the flu shot? No If so, when and where? NA [facility]02-20-2025 Miscellaneous Notes* Telephone Encounter - Jonathan Davalos PSS - 01/01/2025 10:34 AM EST Date/Time: 01/01/2025 10:34 AM Spoke with Patient @ phone #: [phone] - Preferred # for contact: [phone] or [phone] Have you received help from a home care company in the last 60 days? No Are you agreeable to [facility] services? Yes What address will we be seeing you at? [address] [address] Do you have any upcoming appointments or things we need to schedule around? No Do you have a teachable CG or can you manage your care independently? Yes Who? self & spouse Have you received the flu shot? No If so, when and where? NA documented in [facility]Our [facility] NoteHNO ID: [id number] Author: ILEANA GIRON MD Service: Orthopaedic Surgery Author Type: Resident Type: Progress Notes Filed: 01/01/2025 07:38 Note Text: Inpatient Progress Note Orthopaedic Surgery Assessment 79 year old male who is s/p left total hip arthroplasty by Dr. Hough on 12/31/2024. The patient did well overnight, his pain is well-controlled distally. Plan - Weightbearing: As tolerated left lower extremity - Dressing: Silver - Drains: None - Zuñiga: Per nursing protocol - Diet: Regular - MIVF while NPO - HLIV when tolerating adequate PO - DVT Prophylaxis: 81 ASA BID, SCDs - Antibiotics: Perioperative Ancef - Cultures: None - Consults: PT/OT care management, appreciate recs Dispo: PT recommending discharge home with home PT. Medically clear for discharge home today. Plan of care discussed with: Provider, RN, Patient. Rounding Subjective No o/n issues Pain well controlled. Denies nausea, vomiting, chest pain, shortness of breath. Objective Blood pressure 135/56, pulse 71, temperature 36.6 ?C (97.9 ?F), temperature source Oral, resp. rate 18, height 177.8 cm (5' 10), weight 85.7 kg (189 lb), SpO2 95%. Physical Exam AAOx3, NAD Breathing comfortably at rest RRR to peripheral palpation left Lower Extremity Inspection: Dressing c/d/i. Appropriate postop swelling Palpation: TTP to surgical site Compartments: Soft, compressible Sensory: SILT to SP/DP/T/S/S distributions Motor: fires DF/PF/EHL Vascular: DP 2+ to palp; CR < 2 sec; foot warm AND well-perfused Lab Review Creatinine (mg/dL) Date Value 12/10/2024 0.74 10/02/2023 0.74 09/14/2022 0.79 09/12/2021 0.78 03/03/2021 0.80 08/30/2020 0.90 Sodium (mmol/L) Date Value 12/10/2024 137 10/02/2023 139 09/14/2022 139 09/12/2021 139 03/03/2021 140 08/30/2020 139 Potassium (mmol/L) Date Value 12/10/2024 4.4 10/02/2023 4.2 09/14/2022 4.4 09/12/2021 4.8 03/03/2021 4.6 08/30/2020 4.7 Hemoglobin (g/dL) Date Value 01/01/2025 10.7 (L) 12/10/2024 13.0 10/02/2023 13.9 09/12/2021 13.9 08/30/2020 15.0 09/08/2019 15.0 Hematocrit (%) Date Value 01/01/2025 32.7 (L) 12/10/2024 38.9 (L) 10/02/2023 43.0 09/12/2021 43.9 08/30/2020 46.1 09/08/2019 47.1 WBC (k/uL) Date Value 01/01/2025 9.31 12/10/2024 6.64 10/02/2023 8.13 09/12/2021 6.00 08/30/2020 7.15 09/08/2019 6.59 PT INR (no units) Date Value 02/15/2010 1.0 02/14/2010 1.0 02/13/2010 1.0 Glucose, Point of Care (mg/dL) Date Value 01/01/2025 178 (A) 12/31/2024 135 (A) 12/31/2024 147 (A) 12/31/2024 133 (A) 12/31/2024 166 (A) 12/31/2024 152 (A) Please scroll above for Assessment AND Plan. Plan of care discussed with: Provider, RN, Patient. Ileana Giron MD [facility] PGY-4 , Pager [phone] If after 5pm or before 6am, or if urgent, please page the orthopaedic on-call resident at: [phone] for [facility] patients [phone] for [facility] patients [phone] [facility] patients [phone] for [facility] patientsUniversity Hospitals [facility] Medical [id number] NoteHNO ID: [id number] Author: KEO PEÑA RN Service: Care Management Author Type: Registered Nurse Type: Care Mgt Progress Note Filed: 12/31/2024 16:58 Note Text: CARE MANAGEMENT PROGRESS NOTE SERVICE DATE: 12/31/2024 SERVICE TIME: 4:57pm LOS: 0 days Multiple referrals out. Waiting on an accepting agency. CM will need to follow up. 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, 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 Reason for Block: primary surgical anesthetic Staffing Anesthesiologist: Ursula Figueroa MD Resident: Ronna Gonzales DO Performed by: resident and anesthesiologist Preparation Sterility Preparation: hand hygiene performed prior to procedure, sterile gloves, drapes, and procedure tray, surgical cap used, mask used, sterile drape used during line insertion, skin prep agent completely dried prior to procedure Site Prep: Duraprep Procedure Details Patient Position: sitting Monitoring: Pulse Ox and NIBP Approach: Midline Location: L2-3 Injection Technique: single-shot Needle Needle Type: pencil-tip Needle Gauge: 25 G Needle Length: 3.5 in CSF: adequate CSF flow from spinal needle Assessment Events: tolerated well Medications Administered bupivacaine-dextrose 0.75 % (7.5 mg/mL) injection (SENSORCAINE MPF SPINAL) - INTRASPINAL 1.8 mL - 12/31/2024 7:36:00 AM SIGN OUT Comments I supervised the procedure for the duration of anesthesia. By signing, I attest that I have identified and re-evaluated the patient immediately before the procedure of anesthesia and I am satisfied that my anesthetic plan is suitable for the patient's condition and procedure. Ursula Figueroa MD December 31, 2024 SIGNATURE: Ronna Gonzales DO PATIENT NAME: Santa Pearl DATE: December 31, 2024 TIME: 7:40 AM CSN: [id number] Miscellaneous Notes* Telephone Encounter - Shanta Roberson LSW - 12/29/2024 3:26 PM EST Same Day Discharge Pre-operative Assessment Living Arrangement: Home Who able to assist you at home once you discharge? Spouse Services/Needs: Do you currently use any equipment at home for your medical condition or to help you get around? Elevated toilet seat Walker Active Services/Needs: None [place] Of Choice: Level of Care Discussed: Home Care Total Joint Arthroplasty (TJA) Surgical Risk Procedure: Primary total Hip replacement Date assessed: risk assessed on 10/07/2024 10/07/2024 TJA Risk Procedure Primary total Hip replacement Estimated Length of Stay (# of days) 2 Chance of NOT Returning Home at Discharge 19.8 30 Day Chance of Readmission 2.44 Transportation: Do you have reliable transportation to and from surgery/appointments?: Yes Who will provide discharge transportation: Contact information for patient's ride: see chart Will your ride be available for 1200 discharge time? Yes Per pt, they live at home with their spouse where they have a walker and elevated toilet seat at home. Referral will be made to [facility] agencies per pts request for home PT upon d/c. Per pt he does not have preference at this time. Per pt their spouse will transport home upon d/c. SW will remain available. documented in this encounterOur [facility] Telephone encounter Note * Telephone Encounter - Shanta Roberson LSW - 12/29/2024 3:26 PM EST Same Day Discharge Pre-operative Assessment Living Arrangement: Home Who able to assist you at home once you discharge? Spouse Services/Needs: Do you currently use any equipment at home for your medical condition or to help you get around? Elevated toilet seat Walker Active Services/Needs: None [place] Of Choice: Level of Care Discussed: Home Care Total Joint Arthroplasty (TJA) Surgical Risk Procedure: Primary total Hip replacement Date assessed: risk assessed on 10/07/2024 10/07/2024 TJA Risk Procedure Primary total Hip replacement Estimated Length of Stay (# of days) 2 Chance of NOT Returning Home at Discharge 19.8 30 Day Chance of Readmission 2.44 Transportation: Do you have reliable transportation to and from surgery/appointments?: Yes Who will provide discharge transportation: Contact information for patient's ride: see chart Will your ride be available for 1200 discharge time? Yes Per pt, they live at home with their spouse where they have a walker and elevated toilet seat at home. Referral will be made to [facility] agencies per pts request for home PT upon d/c. Per pt he does not have preference at this time. Per pt their spouse will transport home upon d/c. SW will remain available. [facility]2025 History and physical note* Molly Roy APRN.[facility] - 12/10/2024 10:54 AM EST Images from the original note were not included. [facility] HISTORY AND PHYSICAL EXAMINATION SERVICE DATE: 12/10/2024 SERVICE TIME: 12:31 PM PRIMARY CARE PHYSICIAN: Josue Aguilera MD Assessment Patient has the following medical conditions which may affect deepa-operative course: 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 coronary artery of [place] heart without angina pectoris Assessment: s/p stent, following [facility] cardiology and PCP, c/w statin, ASA, and BB. Denies CP, palpitations, sob, new or worsening cardiac symptoms. Pt last cardiac testing 03/2023 with normal stress test, LVEF 69% and EKG today sinus sebastian (HR 54) with 1st degree AV block (no change from [facility]) Essential hypertension Assessment: controlled on rx Last 14 BP Last 14 Encounter BP Readings: Date: BP: 12/10/2024 118/82 11/28/2024 124/74 09/02/2024 120/68 06/02/2024 120/60 05/28/2024 130/70 11/26/2023 134/68 10/03/2023 122/82 03/14/2023 100/64 01/08/2023 142/80 09/14/2022 138/70 06/26/2022 124/64 03/13/2022 128/64 09/12/2021 132/64 08/08/2021 144/62 Other hyperlipidemia Assessment: c/w statin Sinus bradycardia Assessment: chronic, asymptomatic, following cardiology Controlled type 2 diabetes mellitus without complication, without long-term current use of insulin (HCC) Assessment: controlled on oral agent Hemoglobin A1C (%) Date Value 05/28/2024 6.6 09/12/2021 6.1 Hypothyroidism Assessment: stable on rx TSH Date Value Ref Range Status 05/28/2024 2.040 0.270 - 4.200 mIU/L Final Thyroid nodule Assessment: evaluated by endo, denies compressive symptoms, hx benign FNA History of subarachnoid hemorrhage Assessment: hx 11/2023 Status post total bilateral knee replacement Assessment: hx, bilateral Dysmetabolic syndrome Assessment: controlled on oral agent, new A1c pending Hemoglobin A1C (%) Date Value 05/28/2024 6.6 09/12/2021 6.1 Nodular prostate without urinary obstruction Assessment: hx remote urology evaluation, normal flow, denies any current tx Echols Activity Status Index: METS: Climb a flight of stairs or walk up a hill (5.50 METs) DASI Score: 5.5 Patient denies any chest pain or undue shortness of breath with the above physical activity. Clinical Frailty Scale: 3. Well, with treated comorbid disease STOP-Bang Score: Has or is being treated for high blood pressure Patient over 50 years old Male patient Denies snoring loudly Denies feeling tired, fatigued, or sleepy during the daytime Has not been observed to stop breathing or choking/gasping during sleep BMI less than or equal to 35 kg/m^2 Does not have a large neck STOP-Bang Score: 3 [id number] Score: Age: >=75 Sex: male CHF history: No Hypertension history: Yes Stroke/TIA/thromboembolism history: No Vascular disease history: Yes Diabetes history: Yes [id number] Score: 5 ARISCAT Score: Age: 51-80 Preoperative SpO2: >=96% Respiratory infection in the last month: No Preoperative anemia: No Surgical incision: peripheral Duration of surgery: 2-3 hrs Emergency procedure: No ARISCAT Score: 19 ANESTHESIA FINDINGS: Intubation History: No history of difficult intubation Significant Anesthesia Considerations: none Airway History: No history of difficult airway I - PHYSICAL EVALUATION AIRWAY Patient intubated: No. Tracheostomy tube not present Mallampati: III. TM distance: >3 FB. Neck ROM: full ROM without neurological symptoms. Mouth opening: adequate. Short neck: no. Thick neck: no Ruiz present: yes Lip Bite Test: I Microretrognathia/Micronagthia/Recessed Chin: No DENTAL Dental findings: teeth intact. Dentures, upper: partial. Dentures, lower: partial. II - ANESTHESIA PLAN Anesthetic Plan: other Beta Angel Luis Monitoring Plan Post Procedure Analgesic Plan Prepared for Surgery: optimally prepared for surgery, pending [see comment]. Labs and ekg CONSULTS: Patient does not require consults for optimization at this time Planned Anesthetic: other anesthesia choice The Following Tests/Procedures Have Been Initiated: Orders Placed This Encounter >HGB A1c (Today or soon) Standing Status: Future Number of Occurrences: 1 Standing Expiration Date: 03/11/2025 >CBC + AUTO DIFF Standing Status: Future Number of Occurrences: 1 Standing Expiration Date: 03/11/2025 >CMP Standing Status: Future Number of Occurrences: 1 Standing Expiration Date: 03/11/2025 Type and Screen, 30 day Standing Status: Future Number of Occurrences: 1 Standing Expiration Date: 03/11/2025 Scheduling Instructions: A 30-day Type and Screen test has been ordered for you. This should be scheduled to be collected noearlier than 29 days before your scheduled procedure. If you receive blood products (red blood cells, platelets, plasma, cryoprecipitate) at any point before your procedure or are a female and become, please inform your provider. This test will be canceled, and a standard type and screen will need to be ordered to be collected within 3 days of your procedure. Order Specific Question: [facility] or Procedure: Answer: [facility] Order Specific Question: Status of surgery/procedure: Answer: Scheduled Order Specific Question: Date of surgery/procedure: Answer: 12/31/2024 mupirocin (BACTROBAN) 2 % ointment Sig: Apply 0.5 inch with cotton swab (Q-tip) to each nostril in the morning and evening for 5 days prior to and including day of surgery. Dispense: 22 g Refill: 0 ECG COMPLETE Order Comments: Ordered by an unspecified provider ECG COMPLETE Standing Status: Future Standing Expiration Date: 12/10/2025 REASON FOR VISIT: Santa Pearl is a 79 year old male who is scheduled for Procedure(s): ARTHROPLASTY REPLACE JOINT TOTAL HIP (Left) at the request of Dr. Ravin Hough for consultation. My final recommendation will be communicated back to the requesting physician by way of shared medical record or letter. Subjective The patient has the following: COVID-19 Immunization Status Postponed - Covid-19 Vaccine () Postponed until 11/28/2025 11/28/2024 Postponed until 11/28/2025 by Josue Aguilera MD (Declined at this time) 06/02/2024 Postpone removed by Domigna Dejesus MA (patient) 06/02/2024 Imm Admin: COVID-19 vaccine, age 12+ yr, ([employer]) Only the first 3 history entries have been loaded, but more history exists. CHIEF COMPLAINT: Pre-op exam HPI: Santa Pearl is a 79 year old seen for PAC due to scheduled above surgery because of OA left hip. 10/07/2024, Dr. Ravin Hough Santa Pearl is a 79 year old patient with the presenting complaint of New of the Left Hip. Santa Pearl has had progressive problems with the hip(s) constantly over the past 3 year(s) interfering with activities which include walking 2 blocks, doing tail ripper, participating in family activities, enjoying hobbies, exercise, rising from a sitting position, standing for prolonged periods of time, getting in and out of a car, dressing, climbing stairs, and safety-increased risk for fall. The problem began limiting activities 1-3 years ago. Santa reports a current pain level of 3 (Hip-Left). He describes the pain as Sharp. The pain is Intermittent, and has lasted for 1 Minutes. Interventions tried include Relaxation. PROMIS Physical Function Score Descriptive Summary for PROMIS Physical Function T-score = 40 (Percentile 16) Much difficulty - Do 2 hours of physical labor. Some difficulty - Walk more than a mile (1.6 km). 09/17/2022 10/06/2024 PROMIS CAT Physical Function T-Score 51 (within normal limits) 40 (mild dysfunction) Percentile 54 16* FUNCTIONAL STATUS: Walk indoors, such as around the house (1.75 METs) Do light work around the house, such as dusting or washing dishes (2.70 METs) Take care of self, that is eating, dressing, bathing, using the toilet (2.75 METs) PREVIOUS TREATMENTS: Past anti-inflammatory medications (not necessarily for this reason for visit): methylprednisolone, prednisone Medical: OTC NSAIDS for 3 Months or Greater (Tylenol / acetaminophen) Physical Therapy: Use of Ambulatory Aid and Activities Modified REVIEW OF SYSTEMS: General: No weight loss, malaise or fevers. Neurological: +hx SAH. No history of TIA's, stroke, [employer] tumor, impaired sensorium, hemiplegia, paraplegia or quadraplegia. No neurological symptoms or problems. Respiratory: 1ppd/30 years Positive for: URI < 2 weeks. Negative for: asthma, COPD, current cough, dyspnea, pneumonia within 6 weeks, tobacco use and obstructive sleep apnea. Cardiovascular: Positive for: anticoagulation therapy (ASA), CAD, DVT/PE (LE, provoked), hyperlipidemia and hypertension Patient's last office visit with field advisor, [facility], The following tests and/or procedures were performed: cardiac stents. Negative for: abdominal aortic aneurysm, AICD/PPM, angina, arrhythmia, atrial fibrillation, chest pain, CHF, congenital heart defect, recent IA, murmur/valvular heart disease, PTCA, PVD, open heart surgery and valve surgery. GI: No history of GI symptoms or problems. No history of esophageal varices, recent ascites, or ETOH greater than 2 drinks per day. : No history of dysuria, frequency or incontinence, stones or chronic kidney disease. No difficulty urinating, nocturia > 1 time per night or hematuria. Endocrine: Positive for: diabetes mellitus and hypothyroidism (on rx). Patient's diabetes mellitus is controlled by oral agents. Hematology: No history of bleeding or clotting disorder. Patient is not taking anti-coagulation or platelet medications. No history of hematological symptoms or problems. Oncology: No history of CA metastasis, chemo within 30 days, or radiotherapy within 90 days. No history of oncological symptoms or problems. Psych: No history of psychiatric symptoms or problems. Musculoskeletal: See HPI. +hx bilateral TKA Positive for: back pain. Skin: Negative for lesions, rash and itching. Implanted Devices: No implanted devices. 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 HYPERLIPIDEMIA NEC/NOS Hyperplasia of prostate Personal history of colonic polyps S/P angioplasty with stent 02/21/2010 x2 Thyroid nodule 08/05/2012 Unspecified hemorrhoids without mention of complication Unspecified hypothyroidism PAST SURGICAL HISTORY Procedure Laterality Date ARTHRP KNE CONDYLE&PLATU MEDIAL&LAT COMPARTMENTS 1990 Knee replacement, total LEFT ARTHRP KNE CONDYLE&PLATU MEDIAL&LAT COMPARTMENTS 2006 PARTIAL KNEE REPLACEMENT RIGHT CC CORONARY STENT 02/2010 x2 COLONOSCOPY & POLYPECTOMY 01/14/02 repeat 2011 FNA WITH IMAGING 08/21/12 U/S FNA right thyroid lesion FAMILY HISTORY Problem Relation Age of Onset Cancer Mother LYMPHATIC Heart Father IA Emphysema Father smoker/welder shielded metal arc Cancer Maternal Grandmother Social History Tobacco Use Smoking status: Former Current packs/day: 0.00 Average packs/day: 1 pack/day for 25.0 years (25.0 ttl pk-yrs) Types: Cigarettes Start date: 11/24/1964 Quit date: 11/24/1989 Years since quittin.0 Smokeless tobacco: Never Vaping Use Vaping status: Never Used Substance Use Topics Alcohol use: Yes Alcohol/week: 1.0 standard drink of alcohol Types: 1 Cans of Beer (12oz) per week Comment: occasional Drug use: No Prior to Admission medications as of 12/10/24 1102 Medication Sig Last Dose Taking benzonatate (TESSALON PERLE) 100 mg capsule Take 1 capsule by mouth three times a day as needed. Taking Yes atorvastatin (LIPITOR) 20 mg tablet Take 1 tablet by mouth once daily. Taking Yes lisinopril (ZESTRIL) 5 mg tablet Take 1 tablet by mouth once daily. Taking Yes aspirin, enteric coated (ASPIRIN, ENTERIC COATED) 81 mg EC tablet Take 1 tablet by mouth once daily. Taking Yes levothyroxine (SYNTHROID) 112 mcg tablet Take 1 tablet by mouth once daily. Taking Yes metFORMIN ER (GLUCOPHAGE XR) 500 mg 24 hr tablet Take 1 tablet by mouth daily with breakfast. Taking Yes nitroglycerin sublingual (NITROQUICK) 0.4 mg SL tablet Dissolve 1 tablet under the tongue every 5 minutes as needed for chest pain, up to 3 doses. If no relief, call 911. Taking Yes mupirocin (BACTROBAN) 2 % ointment Apply 0.5 inch with cotton swab (Q-tip) to each nostril in the morning and evening for 5 days prior to and including day of surgery. No medication comments found. ALLERGIES Allergen Reactions Coconut Vomiting Only allergic to shredded coconut, fine with oils. Objective PHYSICAL EXAM: General: alert and oriented (x3) and healthy appearance. Pertinent negatives noted - not distressed. Skin: normal color, no rash or lesions. HEENT: EOM intact and pupils equal round. Pertinent negatives noted - no carotid bruit. Cardiovascular: regular rate and rhythm, normal S1 and S2, no rub, murmurs, or gallop. Respiratory: normal breath sounds, no wheezes or crackles. No chest wall deformity or tenderness. Abdomen: soft. Pertinent negatives noted - not tender. Extremities: no deformity, no edema or tenderness, no joint swelling or clubbing. Neurological: normal cognition and motor skills. Gait normal. No weakness or sensory deficit. PAIN ASSESSMENT: Pain Pain Level: 6 Pain Location: Hip-Left Description: Sharp Duration Amount of Time: 1 Duration Units: Years Frequency: Intermittent Intervention/Comfort measure: Medication VITALS: BP 118/82 Pulse 58 Temp (Src) 97.6 (Temporal) Resp 14 Ht 5' 10 (1.78m) Wt 189 lb (85.7kg) SpO2 97% BMI 27.12 kg/(m^2). Diagnostic tests reviewed for today's visit: Lab Value Units Date High Low HB 13.0 g/dL 12/10/2024 17.0 13.0 HCT 38.9 % 12/10/2024 51.0 39.0 WBC 6.64 k/uL 12/10/2024 11.00 3.70 PLT 285 k/uL 12/10/2024 400 150 NA 137 mmol/L 12/10/2024 144 136 K 4.4 mmol/L 12/10/2024 5.1 3.7 GLUC 137 mg/dL 12/10/2024 99 74 BUN 15 mg/dL 12/10/2024 24 9 CREAT 0.74 mg/dL 12/10/2024 1.22 0.73 PTSEC No results within date range. INR No results within date range. APTT No results within date range. ALT 32 U/L 12/10/2024 54 10 AST 21 U/L 12/10/2024 40 14 TBILI 0.6 mg/dL 12/10/2024 1.3 0.2 TSH No results within date range. Lab Value Units Date High Low HCGQT No results within date range. UHCG No results within date range. HCG, BODY* No results within date range. Lab Value Units Date High Low ABORHD No results within date range. ABSCREEN No results within date range. Hemoglobin A1C (%) Date Value 05/28/2024 6.6 10/02/2023 6.2 03/14/2023 6.4 09/14/2022 5.9 09/12/2021 6.1 03/03/2021 6.2 05/08/2019 5.6 08/29/2018 6.0 02/27/2018 5.9 Recent Results (from the past 8760 hour(s)) ECG COMPLETE Collection Time: 12/10/24 12:07 PM Result Value Ventricular Rate 54 Atrial Rate 54 P-R Interval 212 QRS Duration 88 QT Interval 426 QTC Calculation (Bazett) 403 Calculated P [place] 12 Calculated R [place] 17 Calculated T [place] 65 Impression SINUS BRADYCARDIA WITH 1ST DEGREE AV BLOCK OTHERWISE NORMAL ECG No results found for this or any previous visit (from the past 54138 hour(s)). Instructions Given to Patient: Instructions located in the after visit summary. Patient given verbal and written preop instructions and voices comprehension and compliance. SIGNATURE: Molly Roy APRN.CNP PATIENT NAME: Santa Pearl DATE: December 10, 2024 TIME: 10:54 AM PAGER/CONTACT #: [facility]2025 History and physical note* Molly Roy APRN.CNP - 12/10/2024 10:54 AM EST Images from the original note were not included. [facility] HISTORY AND PHYSICAL EXAMINATION SERVICE DATE: 12/10/2024 SERVICE TIME: 12:31 PM PRIMARY CARE PHYSICIAN: Josue Aguilera MD Assessment Patient has the following medical conditions which may affect deepa-operative course: 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 coronary artery of [place] heart without angina pectoris Assessment: s/p stent, following [facility] cardiology and PCP, c/w statin, ASA, and BB. Denies CP, palpitations, sob, new or worsening cardiac symptoms. Pt last cardiac testing 03/2023 with normal stress test, LVEF 69% and EKG today sinus sebastian (HR 54) with 1st degree AV block (no change from [facility]) Essential hypertension Assessment: controlled on rx Last 14 BP Last 14 Encounter BP Readings: Date: BP: 12/10/2024 118/82 11/28/2024 124/74 09/02/2024 120/68 06/02/2024 120/60 05/28/2024 130/70 11/26/2023 134/68 10/03/2023 122/82 03/14/2023 100/64 01/08/2023 142/80 09/14/2022 138/70 06/26/2022 124/64 03/13/2022 128/64 09/12/2021 132/64 08/08/2021 144/62 Other hyperlipidemia Assessment: c/w statin Sinus bradycardia Assessment: chronic, asymptomatic, following cardiology Controlled type 2 diabetes mellitus without complication, without long-term current use of insulin (HCC) Assessment: controlled on oral agent Hemoglobin A1C (%) Date Value 05/28/2024 6.6 09/12/2021 6.1 Hypothyroidism Assessment: stable on rx TSH Date Value Ref Range Status 05/28/2024 2.040 0.270 - 4.200 mIU/L Final Thyroid nodule Assessment: evaluated by endo, denies compressive symptoms, hx benign FNA History of subarachnoid hemorrhage Assessment: hx 11/2023 Status post total bilateral knee replacement Assessment: hx, bilateral Dysmetabolic syndrome Assessment: controlled on oral agent, new A1c pending Hemoglobin A1C (%) Date Value 05/28/2024 6.6 09/12/2021 6.1 Nodular prostate without urinary obstruction Assessment: hx remote urology evaluation, normal flow, denies any current tx Echols Activity Status Index: METS: Climb a flight of stairs or walk up a hill (5.50 METs) DASI Score: 5.5 Patient denies any chest pain or undue shortness of breath with the above physical activity. Clinical Frailty Scale: 3. Well, with treated comorbid disease STOP-Bang Score: Has or is being treated for high blood pressure Patient over 50 years old Male patient Denies snoring loudly Denies feeling tired, fatigued, or sleepy during the daytime Has not been observed to stop breathing or choking/gasping during sleep BMI less than or equal to 35 kg/m^2 Does not have a large neck STOP-Bang Score: 3 [id number] Score: Age: >=75 Sex: male CHF history: No Hypertension history: Yes Stroke/TIA/thromboembolism history: No Vascular disease history: Yes Diabetes history: Yes [id number] Score: 5 ARISCAT Score: Age: 51-80 Preoperative SpO2: >=96% Respiratory infection in the last month: No Preoperative anemia: No Surgical incision: peripheral Duration of surgery: 2-3 hrs Emergency procedure: No ARISCAT Score: 19 ANESTHESIA FINDINGS: Intubation History: No history of difficult intubation Significant Anesthesia Considerations: none Airway History: No history of difficult airway I - PHYSICAL EVALUATION AIRWAY Patient intubated: No. Tracheostomy tube not present Mallampati: III. TM distance: >3 FB. Neck ROM: full ROM without neurological symptoms. Mouth opening: adequate. Short neck: no. Thick neck: no Ruiz present: yes Lip Bite Test: I Microretrognathia/Micronagthia/Recessed Chin: No DENTAL Dental findings: teeth intact. Dentures, upper: partial. Dentures, lower: partial. II - ANESTHESIA PLAN Anesthetic Plan: other Beta Angel Luis Monitoring Plan Post Procedure Analgesic Plan Prepared for Surgery: optimally prepared for surgery, pending [see comment]. Labs and ekg CONSULTS: Patient does not require consults for optimization at this time Planned Anesthetic: other anesthesia choice The Following Tests/Procedures Have Been Initiated: Orders Placed This Encounter >HGB A1c (Today or soon) Standing Status: Future Number of Occurrences: 1 Standing Expiration Date: 03/11/2025 >CBC + AUTO DIFF Standing Status: Future Number of Occurrences: 1 Standing Expiration Date: 03/11/2025 >CMP Standing Status: Future Number of Occurrences: 1 Standing Expiration Date: 03/11/2025 Type and Screen, 30 day Standing Status: Future Number of Occurrences: 1 Standing Expiration Date: 03/11/2025 Scheduling Instructions: A 30-day Type and Screen test has been ordered for you. This should be scheduled to be collected noearlier than 29 days before your scheduled procedure. If you receive blood products (red blood cells, platelets, plasma, cryoprecipitate) at any point before your procedure or are a female and become, please inform your provider. This test will be canceled, and a standard type and screen will need to be ordered to be collected within 3 days of your procedure. Order Specific Question: [facility] Planned Surgery or Procedure: Answer: [facility] Order Specific Question: Status of surgery/procedure: Answer: Scheduled Order Specific Question: Date of surgery/procedure: Answer: 12/31/2024 mupirocin (BACTROBAN) 2 % ointment Sig: Apply 0.5 inch with cotton swab (Q-tip) to each nostril in the morning and evening for 5 days prior to and including day of surgery. Dispense: 22 g Refill: 0 ECG COMPLETE Order Comments: Ordered by an unspecified provider ECG COMPLETE Standing Status: Future Standing Expiration Date: 12/10/2025 REASON FOR VISIT: Santa Pearl is a 79 year old male who is scheduled for Procedure(s): ARTHROPLASTY REPLACE JOINT TOTAL HIP (Left) at the request of Dr. Ravin Hough for consultation. My final recommendation will be communicated back to the requesting physician by way of shared medical record or letter. Subjective The patient has the following: COVID-19 Immunization Status Postponed - Covid-19 Vaccine ( season) Postponed until 11/28/2025 11/28/2024 Postponed until 11/28/2025 by Josue Aguilera MD (Declined at this time) 06/02/2024 Postpone removed by Dominga Dejesus MA (patient) 06/02/2024 Imm Admin: COVID-19 vaccine, age 12+ yr, season ([employer]) Only the first 3 history entries have been loaded, but more history exists. CHIEF COMPLAINT: Pre-op exam HPI: Santa Pearl is a 79 year old seen for PAC due to scheduled above surgery because of OA left hip. 10/07/2024, Dr. Ravin Hough Santa Pearl is a 79 year old patient with the presenting complaint of New of the Left Hip. Santa Pearl has had progressive problems with the hip(s) constantly over the past 3 year(s) interfering with activities which include walking 2 blocks, doing tail ripper, participating in family activities, enjoying hobbies, exercise, rising from a sitting position, standing for prolonged periods of time, getting in and out of a car, dressing, climbing stairs, and safety-increased risk for fall. The problem began limiting activities 1-3 years ago. Santa reports a current pain level of 3 (Hip-Left). He describes the pain as Sharp. The pain is Intermittent, and has lasted for 1 Minutes. Interventions tried include Relaxation. PROMIS Physical Function Score Descriptive Summary for PROMIS Physical Function T-score = 40 (Percentile 16) Much difficulty - Do 2 hours of physical labor. Some difficulty - Walk more than a mile (1.6 km). 09/17/2022 10/06/2024 PROMIS CAT Physical Function T-Score 51 (within normal limits) 40 (mild dysfunction) Percentile 54 16* FUNCTIONAL STATUS: Walk indoors, such as around the house (1.75 METs) Do light work around the house, such as dusting or washing dishes (2.70 METs) Take care of self, that is eating, dressing, bathing, using the toilet (2.75 METs) PREVIOUS TREATMENTS: Past anti-inflammatory medications (not necessarily for this reason for visit): methylprednisolone, prednisone Medical: OTC NSAIDS for 3 Months or Greater (Tylenol / acetaminophen) Physical Therapy: Use of Ambulatory Aid and Activities Modified REVIEW OF SYSTEMS: General: No weight loss, malaise or fevers. Neurological: +hx SAH. No history of TIA's, stroke, AUTOMOBILE MECHANIC HELPER tumor, impaired sensorium, hemiplegia, paraplegia or quadraplegia. No neurological symptoms or problems. Respiratory: 1ppd/30 years Positive for: URI < 2 weeks. Negative for: asthma, COPD, current cough, dyspnea, pneumonia within 6 weeks, tobacco use and obstructive sleep apnea. Cardiovascular: Positive for: anticoagulation therapy (ASA), CAD, DVT/PE (LE, provoked), hyperlipidemia and hypertension Patient's last office visit with field advisor, [facility], The following tests and/or procedures were performed: cardiac stents. Negative for: abdominal aortic aneurysm, AICD/PPM, angina, arrhythmia, atrial fibrillation, chest pain, CHF, congenital heart defect, recent IA, murmur/valvular heart disease, PTCA, PVD, open heart surgery and valve surgery. GI: No history of GI symptoms or problems. No history of esophageal varices, recent ascites, or ETOH greater than 2 drinks per day. : No history of dysuria, frequency or incontinence, stones or chronic kidney disease. No difficulty urinating, nocturia > 1 time per night or hematuria. Endocrine: Positive for: diabetes mellitus and hypothyroidism (on rx). Patient's diabetes mellitus is controlled by oral agents. Hematology: No history of bleeding or clotting disorder. Patient is not taking anti-coagulation or platelet medications. No history of hematological symptoms or problems. Oncology: No history of CA metastasis, chemo within 30 days, or radiotherapy within 90 days. No history of oncological symptoms or problems. Psych: No history of psychiatric symptoms or problems. Musculoskeletal: See HPI. +hx bilateral TKA Positive for: back pain. Skin: Negative for lesions, rash and itching. Implanted Devices: No implanted devices. 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 HYPERLIPIDEMIA NEC/NOS Hyperplasia of prostate Personal history of colonic polyps S/P angioplasty with stent 02/21/2010 x2 Thyroid nodule 08/05/2012 Unspecified hemorrhoids without mention of complication Unspecified hypothyroidism PAST SURGICAL HISTORY Procedure Laterality Date ARTHRP KNE CONDYLE&PLATU MEDIAL&LAT COMPARTMENTS 1991 Knee replacement, total LEFT ARTHRP KNE CONDYLE&PLATU MEDIAL&LAT COMPARTMENTS 2006 PARTIAL KNEE REPLACEMENT RIGHT CC CORONARY STENT 02/2010 x2 COLONOSCOPY & POLYPECTOMY 01/14/02 repeat 2011 FNA WITH IMAGING 08/21/12 U/S FNA right thyroid lesion FAMILY HISTORY Problem Relation Age of Onset Cancer Mother LYMPHATIC Heart Father IA Emphysema Father smoker/welder shielded metal arc Cancer Maternal Grandmother Social History Tobacco Use Smoking status: Former Current packs/day: 0.00 Average packs/day: 1 pack/day for 25.0 years (25.0 ttl pk-yrs) Types: Cigarettes Start date: 11/24/1964 Quit date: 11/24/1989 Years since quittin.0 Smokeless tobacco: Never Vaping Use Vaping status: Never Used Substance Use Topics Alcohol use: Yes Alcohol/week: 1.0 standard drink of alcohol Types: 1 Cans of Beer (12oz) per week Comment: occasional Drug use: No Prior to Admission medications as of 12/10/24 1102 Medication Sig Last Dose Taking benzonatate (TESSALON PERLE) 100 mg capsule Take 1 capsule by mouth three times a day as needed. Taking Yes atorvastatin (LIPITOR) 20 mg tablet Take 1 tablet by mouth once daily. Taking Yes lisinopril (ZESTRIL) 5 mg tablet Take 1 tablet by mouth once daily. Taking Yes aspirin, enteric coated (ASPIRIN, ENTERIC COATED) 81 mg EC tablet Take 1 tablet by mouth once daily. Taking Yes levothyroxine (SYNTHROID) 112 mcg tablet Take 1 tablet by mouth once daily. Taking Yes metFORMIN ER (GLUCOPHAGE XR) 500 mg 24 hr tablet Take 1 tablet by mouth daily with breakfast. Taking Yes nitroglycerin sublingual (NITROQUICK) 0.4 mg SL tablet Dissolve 1 tablet under the tongue every 5 minutes as needed for chest pain, up to 3 doses. If no relief, call 911. Taking Yes mupirocin (BACTROBAN) 2 % ointment Apply 0.5 inch with cotton swab (Q-tip) to each nostril in the morning and evening for 5 days prior to and including day of surgery. No medication comments found. ALLERGIES Allergen Reactions Coconut Vomiting Only allergic to shredded coconut, fine with oils. Objective PHYSICAL EXAM: General: alert and oriented (x3) and healthy appearance. Pertinent negatives noted - not distressed. Skin: normal color, no rash or lesions. HEENT: EOM intact and pupils equal round. Pertinent negatives noted - no carotid bruit. Cardiovascular: regular rate and rhythm, normal S1 and S2, no rub, murmurs, or gallop. Respiratory: normal breath sounds, no wheezes or crackles. No chest wall deformity or tenderness. Abdomen: soft. Pertinent negatives noted - not tender. Extremities: no deformity, no edema or tenderness, no joint swelling or clubbing. Neurological: normal cognition and motor skills. Gait normal. No weakness or sensory deficit. PAIN ASSESSMENT: Pain Pain Level: 6 Pain Location: Hip-Left Description: Sharp Duration Amount of Time: 1 Duration Units: Years Frequency: Intermittent Intervention/Comfort measure: Medication VITALS: BP 118/82 Pulse 58 Temp (Src) 97.6 (Temporal) Resp 14 Ht 5' 10 (1.78m) Wt 189 lb (85.7kg) SpO2 97% BMI 27.12 kg/(m^2). Diagnostic tests reviewed for today's visit: Lab Value Units Date High Low HB 13.0 g/dL 12/10/2024 17.0 13.0 HCT 38.9 % 12/10/2024 51.0 39.0 WBC 6.64 k/uL 12/10/2024 11.00 3.70 PLT 285 k/uL 12/10/2024 400 150 NA 137 mmol/L 12/10/2024 144 136 K 4.4 mmol/L 12/10/2024 5.1 3.7 GLUC 137 mg/dL 12/10/2024 99 74 BUN 15 mg/dL 12/10/2024 24 9 CREAT 0.74 mg/dL 12/10/2024 1.22 0.73 PTSEC No results within date range. INR No results within date range. APTT No results within date range. ALT 32 U/L 12/10/2024 54 10 AST 21 U/L 12/10/2024 40 14 TBILI 0.6 mg/dL 12/10/2024 1.3 0.2 TSH No results within date range. Lab Value Units Date High Low HCGQT No results within date range. UHCG No results within date range. HCG, BODY* No results within date range. Lab Value Units Date High Low ABORHD No results within date range. ABSCREEN No results within date range. Hemoglobin A1C (%) Date Value 05/28/2024 6.6 10/02/2023 6.2 03/14/2023 6.4 09/14/2022 5.9 09/12/2021 6.1 03/03/2021 6.2 05/08/2019 5.6 08/29/2018 6.0 02/27/2018 5.9 Recent Results (from the past 8760 hour(s)) ECG COMPLETE Collection Time: 12/10/24 12:07 PM Result Value Ventricular Rate 54 Atrial Rate 54 P-R Interval 212 QRS Duration 88 QT Interval 426 QTC Calculation (Bazett) 403 Calculated P [place] 12 Calculated R [place] 17 Calculated T [place] 65 Impression SINUS BRADYCARDIA WITH 1ST DEGREE AV BLOCK OTHERWISE NORMAL ECG No results found for this or any previous visit (from the past 49217 hour(s)). Instructions Given to Patient: Instructions located in the after visit summary. Patient given verbal and written preop instructions and voices comprehension and compliance. SIGNATURE: Molly Roy APRN.CNP PATIENT NAME: Santa Pearl DATE: December 10, 2024 TIME: 10:54 AM PAGER/CONTACT #: documented in this encounterOur [facility] Instructions* Patient Instructions* Molly Roy APRN.CNP - 12/10/2024 10:53 AM EST Images from the original note were not included. [facility] PATIENT PREOPERATIVE INSTRUCTIONS Ravin Hough MD has scheduled you for your procedure at this surgery center: [facility]: [phone] --[address] [place] [address]. On your scheduled day of surgery, please report to Patient Registration, ground floor Please read below carefully for your personalized instructions. Dietary Restrictions: - No solid food after midnight. - You may have 12 ounces of clear liquids (water, clear juices such as apple juice or gatorade, carbonated beverages, clear tea, black coffee, jello) until 2 hours before scheduled arrival at facility. No red/purple coloring and no creamer/sugar Medications: Unless instructed differently below, stay on all of your medications until your surgery. If you start any new medications after today's visit, please contact your surgeon. Pre-Surgery Med Instructions Medication Instructions benzonatate (TESSALON PERLE) 100 mg capsule IF needed atorvastatin (LIPITOR) 20 mg tablet Take the day of surgery with a small sip of water lisinopril (ZESTRIL) 5 mg tablet Take the day of surgery with a small sip of water aspirin, enteric coated (ASPIRIN, ENTERIC COATED) 81 mg EC tablet Take the day of surgery with a small sip of water levothyroxine (SYNTHROID) 112 mcg tablet Take the day of surgery with a small sip of water metFORMIN ER (GLUCOPHAGE XR) 500 mg 24 hr tablet Do not take the day of surgery nitroglycerin sublingual (NITROQUICK) 0.4 mg SL tablet IF needed If you take any medications for erectile dysfunction-Cialis (Tadalafil), Levitra, Staxyn (Vardenafil) Viagra (Sildenenafil please do not take these for 48 hours before surgery. If you start any new medications after today's visit, please contact the surgeon's office. If you are currently using a jciu-lmi-ffuz injectable or oral medication for diabetes or weight loss such as Dulaglutide (Trulicity), Exenatide (Byetta, Bydureon), Liraglutide (Victoza, Saxenda), Semaglutide (Ozempic, Wegovy, Rybelsus), or Tirzepatide (Mounjaro), the medicine should be stopped at least 7 days before surgery. These medicines can cause food to remain in your stomach for a very longtime and increase the risks from surgery and anesthesia. Not stopping the medication for a long enough time may result in your surgery being rescheduled. Blood Thinning Medications: - Stop NSAIDS (Ibuprofen, Advil, Aleve, Motrin, Celebrex, Mobic, etc.) 7 days before surgery, as directed by your surgeon. - Do NOT stop aspirin or other anticoagulants without consulting with your field advisor or prescribing physician. - Stop ALL herbal and dietary supplements 7 days before surgery. - You may take Tylenol (Acetaminophen) or any of your pain medications that do not contain aspirin or NSAIDS as needed. Important Reminders: - Candy, mints, gum and tobacco products are NOT permitted the morning of surgery. - Hearing aids, dentures and glasses may be worn the morning of surgery. - NO jewelry, body piercings, makeup, hairpins or contacts are to be worn the day of surgery. If you develop symptoms such as a fever, cold, or flu, or have other changes to your health within TWO DAYS of scheduled surgery or the morning of surgery, please contact the surgery center above. Personal Belongings: -Please have photo ID and insurance cards. -If you do not have a copy of advance directives on file with us, please bring a copy with you on the day of surgery. - Leave ALL valuables and money at home or with family members. - Please bring high-quality footwear, such as sneakers, to the hospital for ambulating post-surgery. For Outpatient Procedures: - YOU MUST HAVE A RESPONSIBLE FREIGHT CHECKER TAKE YOU HOME. A HOME ECONOMICS TEACHER OR E COMMERCE ANALYST CANNOT BE MADE A RESPONSIBLE FREIGHT CHECKER. - We recommend that a responsible person stays with you overnight to take care of you. - You cannot stay in a hotel alone after outpatient surgery. You will not be permitted to have yoursurgery, if you do not have someone to take care of you. Arrival Time for Surgery: - The Surgery Center or hospital where you are having surgery will call the afternoon before surgery (or Sunday for Sunday surgery) with a scheduled arrival time. - If you have not heard by 4 pm, please contact the surgery center above. Please be aware that emergency situations arise, which may delay or change your surgical time. If this happens, we will notify you as soon as possible and regret any inconvenience. If you already have an Advance Directive, please fax a copy to [phone] or email to for it to be added to your chart. If you do not have an Advance Directive, you can find the appropriate form and more information at [email or web address]. We recommend that youcomplete the Advance Directive form found on the website and bring it with you the day of your surgery. It can be witnessed and scanned into your chart that day. Molly Roy APRN.SAYRA documented in this encounterOur [facility]01-[facility]25 Telephone encounter Note * Telephone Encounter - Alis Levin MA - 11/29/2024 8:31 AM EST Patient informed via VM. VM verified. Advised patient to call back with any questions or concerns. Patient did view result via my chart. Alis Levin MA [facility]01-18-[facility]25 Miscellaneous Notes* Telephone Encounter - Alis Levin MA - 11/29/2024 8:31 AM EST Patient informed via VM. VM verified. Advised patient to call back with any questions or concerns. Patient did view result via my chart. Alis Levin MA * Telephone Encounter - Josue Aguilera MD - 11/29/2024 8:03 AM EST Let him know he has influenza A. It is viral and antibiotics will not help. He is too far along to consider antivirals. Fluids and rest. Call if symptoms worsen at all or if not better in one to two weeks documented in this encounterOur [facility]01-[facility]-2025 Telephone encounter Note * Telephone Encounter - Josue Aguilera MD - 11/29/2024 8:03 AM EST Let him know he has influenza A. It is viral and antibiotics will not help. He is too far along to consider antivirals. Fluids and rest. Call if symptoms worsen at all or if not better in one to two weeks [facility] History of Present illness Narrative* Josue Aguilera MD - 11/28/2024 10:20 AM EST Patient presents with: 6 Month Exam HPI: Patient presents today for office visit for routine 6 month follow up. HLD: No myalgias. Does not follow a strict diet. Does not exercise. HTN: Does not monitor his BP at home. Denies chest pain and shortness of breath. Denies headaches and dizziness. Denies palpitations and syncope. No edema. THYROID: No energy, hair or skin changes No weight change Due for labs Scheduled for total left hip replacement on 12/31/[address] Hough. Has a uri around [place]. Now sick again. Started again four days ago Coughing. Keeping him up at night. No fever. Some loss of appetite. No shortness of breath. No gi issues. No sore throat or ear pain. MEDICATIONS: Current Outpatient Medications Medication Sig atorvastatin (LIPITOR) 20 mg tablet Take 1 tablet by mouth once daily. lisinopril (ZESTRIL) 5 mg tablet Take 1 tablet by mouth once daily. aspirin, enteric coated (ASPIRIN, ENTERIC COATED) 81 mg EC tablet Take 1 tablet by mouth once daily. levothyroxine (SYNTHROID) 112 mcg tablet Take 1 tablet by mouth once daily. metFORMIN ER (GLUCOPHAGE XR) 500 mg 24 hr tablet Take 1 tablet by mouth daily with breakfast. nitroglycerin sublingual (NITROQUICK) 0.4 mg SL tablet Dissolve 1 tablet under the tongue every 5 minutes as needed for chest pain, up to 3 doses. If no relief, call 911. No current facility-administered medications for this visit. ALLERGIES: ALLERGIES Allergen Reactions Coconut Vomiting Only allergic to shredded coconut, fine with oils. 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 [place] Mahan Synd (herpes zoster oticus) CAD (coronary artery disease) 02/21/2010 s/p [place] Dysmetabolic syndrome borderline FBS Hearing loss in left ear [place] Hung Syndrome HYPERLIPIDEMIA NEC/NOS Hyperplasia of prostate Personal history of colonic polyps S/P angioplasty with stent 02/21/2010 x2 Thyroid nodule 08/05/2012 Unspecified hemorrhoids without mention of complication Unspecified hypothyroidism PAST SURGICAL HISTORY Procedure Laterality Date ARTHRP KNE CONDYLE&PLATU MEDIAL&LAT COMPARTMENTS 1990 Knee replacement, total LEFT ARTHRP KNE CONDYLE&PLATU MEDIAL&LAT COMPARTMENTS 2006 PARTIAL KNEE REPLACEMENT RIGHT CC CORONARY STENT 02/2010 x2 COLONOSCOPY & POLYPECTOMY 01/14/02 repeat 2011 FNA WITH IMAGING 08/21/12 U/S FNA right thyroid lesion FAMILY HISTORY Problem Relation Age of Onset Cancer Mother LYMPHATIC Heart Father IA Emphysema Father smoker/welder shielded metal arc Cancer Maternal Grandmother Social History Tobacco Use Smoking status: Former Current packs/day: 0.00 Average packs/day: 1 pack/day for 25.0 years (25.0 ttl pk-yrs) Types: Cigarettes Start date: 11/24/1964 Quit date: 11/24/1989 Years since quittin.0 Smokeless tobacco: Never Vaping Use Vaping status: Never Used Substance Use Topics Alcohol use: Yes Alcohol/week: 1.0 standard drink of alcohol Types: 1 Cans of Beer (12oz) per week Drug use: No Reviewed current medications, allergies, past medical history, surgical history, family history andsocial history today. REVIEW OF SYSTEMS All other reviewed and negative other than HPI. HEALTH MAINTENANCE: Reviewed health maintenance issues today and recommended the following in detail. Urine Albumin:Creatinine Ratio Never done Dilated Retinal Exam -recommended. Diabetic Foot Exam Never done RSV Vaccine(1 - 1-dose 75+ series) Never done Influenza Vaccine(1) due on 07/13/2024 Covid-19 Vaccine(2023- season) due on 07/28/2024 LDL Cholesterol due on 10/02/2024 Colorectal Cancer Screening due on 10/04/2024 Advance Directive Discussion-his is his surrogate. HbA1C due on 11/28/2024 Labs ordered. VITALS: BP 124/74 Pulse 68 Ht 177.8 cm (5' 10) Wt 86 kg (189 lb 9.5 oz) SpO2 96% BMI 27.20 kg/m Last 4 Encounter Wt Readings: Date: Wt: 09/02/2024 84.9 kg (187 lb 2.7 oz) 06/02/2024 87.1 kg (192 lb) 05/28/2024 86.6 kg (191 lb) 11/26/2023 88.2 kg (194 lb 6.4 oz) PHYSICAL EXAMINATION: General appearance: Well appearing, alert, in no acute distress, well-hydrated, well nourished. Skin: Skin color, texture, turgor normal, no suspicious rashes or lesions Head: Normocephalic, no masses, lesions, tenderness or abnormalities Eyes: Anicteric sclera. Pupils are equally round and reactive to light. Extraocular movements are intact. Ears:cerumen in left ear. Discussed removal when feeling well. Nose/Sinuses: Nares normal, septum midline, mucosa normal, no drainage or sinus tenderness Oropharynx: Lips, mucosa, and tongue normal, teeth and gums normal, oropharynx normal Neck: Supple, no adenopathy; thyroid symmetric, normal size, no bruits Back: Normal exam Lungs: Lungs clear to auscultation. No wheezing, rhonchi, rales Heart: RRR without murmur, gallop, or rubs. No ectopy Abdomen: Normal abdominal exam, Abdomen soft, non-tender. Bowel sounds normal. No masses, organomegaly Extremities: No deformities, edema, skin discoloration, clubbing or cyanosis. Good capillary refill. ASSESSMENT/PLAN: 1. History of subarachnoid hemorrhage - ICD9: V12.59, ICD10: Z86.79 (primary diagnosis) - stable. 2. S/P right coronary artery (RCA) stent placement - ICD9: V45.82, ICD10: Z95.5 - reminded to follow up with Dr Banks. 3. 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 coronary artery of [place] heart without angina pectoris- ICD9: 414.01, ICD10: I25.10 - as above. 4. Essential hypertension - ICD9: 401.9, ICD10: I10 - Controlled - Continue current medications 5. Other hyperlipidemia - ICD9: 272.4, ICD10: E78.49 - stable. 6. Hypothyroidism, unspecified type - ICD9: 244.9, ICD10: E03.9 - get labs 7. Thyroid nodule - ICD9: 241.0, ICD10: E04.[address] Delarosa: I have reviewed all patient's previous thyroid studies and reprinted above. At this point in time, I do not feel patient requires repeat FNA, given that they are no significant clinic findings and initial FNA done by Dr. Tineo is adequate. I do not feel that patient requires continued US thyroid surveillance. 8. Controlled type 2 diabetes mellitus without complication, without long-term current use of insulin (HCC) - ICD9: 250.00, ICD10: E11.9 - check labs. 9. URI, acute - ICD9: 465.9, ICD10: J06.9 - Discussed viral etiology and rationale for treatment. - Symptomatic treatment with prn analgesia - Supportive care with fluids and rest - tessalon prn. - COVID & INFLUENZA A/B & RSV PCR, ROUTINE Josue Aguilera MD documented in this encounterOur [facility] NoteHNO ID: [id number] Author: JOSUE AGUILERA MD Service: ? Author Type: Physician Type: Progress Notes Filed: 11/28/2024 12:31 Note Text: Patient presents with: 6 Month Exam HPI: Patient presents today for office visit for routine 6 month follow up. HLD: No myalgias. Does not follow a strict diet. Does not exercise. HTN: Does not monitor his BP at home. Denies chest pain and shortness of breath. Denies headaches and dizziness. Denies palpitations and syncope. No edema. THYROID: No energy, hair or skin changes No weight change Due for labs Scheduled for total left hip replacement on 12/31/[address] Hough. Has a uri around [place]. Now sick again. Started again four days ago Coughing. Keeping him up at night. No fever. Some loss of appetite. No shortness of breath. No gi issues. No sore throat or ear pain. MEDICATIONS: Current Outpatient Medications Medication Sig atorvastatin (LIPITOR) 20 mg tablet Take 1 tablet by mouth once daily. lisinopril (ZESTRIL) 5 mg tablet Take 1 tablet by mouth once daily. aspirin, enteric coated (ASPIRIN, ENTERIC COATED) 81 mg EC tablet Take 1 tablet by mouth once daily. levothyroxine (SYNTHROID) 112 mcg tablet Take 1 tablet by mouth once daily. metFORMIN ER (GLUCOPHAGE XR) 500 mg 24 hr tablet Take 1 tablet by mouth daily with breakfast. nitroglycerin sublingual (NITROQUICK) 0.4 mg SL tablet Dissolve 1 tablet under the tongue every 5 minutes as needed for chest pain, up to 3 doses. If no relief, call 911. No current facility-administered medications for this visit. ALLERGIES: ALLERGIES Allergen Reactions Coconut Vomiting Only allergic to shredded coconut, fine with oils. 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 HYPERLIPIDEMIA NEC/NOS Hyperplasia of prostate Personal history of colonic polyps S/P angioplasty with stent 02/21/2010 x2 Thyroid nodule 08/05/2012 Unspecified hemorrhoids without mention of complication Unspecified hypothyroidism PAST SURGICAL HISTORY Procedure Laterality Date ARTHRP KNE CONDYLEANDPLATU MEDIALANDLAT COMPARTMENTS 1990 Knee replacement, total LEFT ARTHRP KNE CONDYLEANDPLATU MEDIALANDLAT COMPARTMENTS 2006 PARTIAL KNEE REPLACEMENT RIGHT CC CORONARY STENT 02/2010 x2 COLONOSCOPY AND POLYPECTOMY 01/14/02 repeat 2012 FNA WITH IMAGING 08/21/12 U/S FNA right thyroid lesion FAMILY HISTORY Problem Relation Age of Onset Cancer Mother LYMPHATIC Heart Father IA Emphysema Father smoker/welder shielded metal arc Cancer Maternal Grandmother Social History Tobacco Use Smoking status: Former Current packs/day: 0.00 Average packs/day: 1 pack/day for 25.0 years (25.0 ttl pk-yrs) Types: Cigarettes Start date: 11/24/1964 Quit date: 11/24/1989 Years since quittin.0 Smokeless tobacco: Never Vaping Use Vaping status: Never Used Substance Use Topics Alcohol use: Yes Alcohol/week: 1.0 standard drink of alcohol Types: 1 Cans of Beer (12oz) per week Drug use: No Reviewed current medications, allergies, past medical history, surgical history, family history and social history today. REVIEW OF SYSTEMS All other reviewed and negative other than HPI. HEALTH MAINTENANCE: Reviewed health maintenance issues today and recommended the following in detail. Urine Albumin:Creatinine Ratio Never done Dilated Retinal Exam -recommended. Diabetic Foot Exam Never done RSV Vaccine(1 - 1-dose 75+ series) Never done Influenza Vaccine(1) due on 07/13/2024 Covid-19 Vaccine(2023- season) due on 07/28/2024 LDL Cholesterol due on 10/02/2024 Colorectal Cancer Screening due on 10/04/2024 Advance Directive Discussion-his is his surrogate. HbA1C due on 11/28/2024 Labs ordered. VITALS: BP 124/74 Pulse 68 Ht 177.8 cm (5' 10) Wt 86 kg (189 lb 9.5 oz) SpO2 96% BMI 27.20 kg/m? Last 4 Encounter Wt Readings: Date: Wt: 09/02/2024 84.9 kg (187 lb 2.7 oz) 06/02/2024 87.1 kg (192 lb) 05/28/2024 86.6 kg (191 lb) 11/26/2023 88.2 kg (194 lb 6.4 oz) PHYSICAL EXAMINATION: General appearance: Well appearing, alert, in no acute distress, well-hydrated, well nourished. Skin: Skin color, texture, turgor normal, no suspicious rashes or lesions Head: Normocephalic, no masses, lesions, tenderness or abnormalities Eyes: Anicteric sclera. Pupils are equally round and reactive to light. Extraocular movements are intact. Ears:cerumen in left ear. Discussed removal when feeling well. Nose/Sinuses: Nares normal, septum midline, mucosa normal, no drainage or sinus tenderness Oropharynx: Lips, mucosa, and tongue normal, teeth and gums normal, oropharynx normal Neck: Supple, no adenopathy; thyroid symmetric, normal size, no bruits Back: Normal exam Lungs: Lungs c (more content not included)...[facility] 10-07-2024 Instructions* Patient Instructions* Ravin Hough MD - 10/07/2024 1:[address] Hough has ordered a cream that will be delivered to your home. The company, [employer], will call or text you from a [phone] phone number. Please reply or answer the call to start the process. If you do not hear from them within 48 hours, please call . documented in this encounterOur [facility]11-26-2024 NoteHNO ID: [id number] Author: RAVIN HOUGH MD Service: ? Author Type: Physician Type: Progress Notes Filed: 10/07/2024 14:25 Note Text: He is here with progressive left hip and groin pain. Longstanding issues with his hip. Previous left knee replacement 30+ years ago doing well. Hip has progressed to the point of affecting his quality life. Pain at rest and with all physical activities. Takes Tylenol for his pain occasional [id number] anti-inflammatories. Otherwise healthy.Review of systems negative for fever, weight loss, malaise, fatigue, significant headache, vision changes, hearing loss, neck swelling, cough, chest pain, shortness of breath, dyspnea on exertion, abdominal pain, nausea, vomiting, diarrhea, urinary dysfunction, upper/lower extremity numbness/tingling/weakness/edema, heat/cold intolerance On exam antalgic gait. Left hip flexion is 70 with virtually no rotation. Abducts 10. Negative straight leg raise. Neurologically intact. Right hip flexion 100 and rotation of 30. X-rays show advanced arthritis with obliteration of the joint space. Assessment left hip arthritis. We discussed treatment options and he is an excellent candidate for hip replacement. Risks and benefits were discussed and all questions answered. Will schedule this for early next year. All questions answered. Did order him topical anti-inflammatory gel. Ravin Hough MD CONSULT ORTHOPAEDIC: HIP PRIMARY CARE PHYSICIAN: Josue Aguilera MD REFERRING PROVIDER: [facility] Iliana [id number] [facility] [address] ASSESSMENT AND PLAN Impression: Left Hip Severe Degenerative Osteoarthritis, Primary Diagnoses: (M16.12) Primary osteoarthritis of left hip (primary encounter diagnosis) (Z96.642) Status post left hip replacement Based upon the evaluation today and after discussions with Santa Pearl, Santa Pearl has significant, worsening pain at the hip. This pain is increased with activity and weight bearing, and interferes with activities of daily living. These symptoms have continued despite a number of non-surgical measures, including a trial of oral pain medication (for at least 12 weeks). At this point, the patient will not benefit from further PT due to the severity of their condition. The patient's physical examination is consistent with limitations in range of motion, pain with passive range of motion, and an antalgic gait. These examination findings are corroborated by imaging findings of joint space narrowing, periarticular osteophyte formation, and subchondral sclerosis. The patient has been treated by the practice and all reasonable treatments have failed to control the disease, which causes significant pain andlimits activities of daily living. The patient has failed conservative treatment and joint replacement surgery was discussed and agreed upon by both provider and patient. The patient has elected to proceed with surgical management to improve function and relieve pain refractory to non-surgical measures: Left Primary Total Hip Arthroplasty as evidenced by progressive symptoms. Progressive symptoms include: Pain impacting sleep or causing fatigue Pain impacting work Pain worsened by weight bearing Pain effecting living situation Pain limiting ability to stay fit and healthy Unable to ambulate 2 blocks without significant pain and dysfunction. Surgery Details Date and Location: At [facility] on 12/31/24. Implants: Krystal Robotic: No Predicted LOS: 2 days (Inpatient candidate) The risks and benefits of surgery were discussed at length including but not limited to the risks of infection, bleeding, nerve or blood vessel injury, deep venous thrombosis, pulmonary embolism, , paralysis, hip dislocation, leg length discrepancy (including requiring use of permanent shoe lift), bone fracture, component loosening or failure requiring re-operation or amputation. Informed consent was obtained and the patient was scheduled. We also discussed fixation strategies including cement and cementless fixation and modern alternative bearings including metal or ceramic with cross-linked polyethylene, [id number] and [id number] as well as advantages and disadvantages of each. We also discussed less invasive surgical approaches and reported benefits and risks of these approaches. The patient has been ordered: Office Visit on 10/07/24 WALKER FOLDING WHEELED W/O S RAISED TOILET SEAT TOILET RAIL, EACH BATH/SHOWER CHAIR CONSULT TO ORTHOPAEDICS CONSULT TO PHYSICAL THERAPY No orders placed today. CONSULTS: Patient does not require consults for optimization at this time. Total Joint Arthroplasty: Risk Calculator Santa Pearl has a 19.8% chance of NOT returning home at discharge for a Primary total Hip replacement. Santa's estimated Length of Stay is 2 days (Inpatient candidate). Santa's 30 day chance of readmission is 2.44%. Readmission P (more content not included)...[facility]11-26-[facility] History of Present illness Narrative* Ravin Hough MD - 10/07/2024 1:09 PM EST Images from the original note were not included. He is here with progressive left hip and groin pain. Longstanding issues with his hip. Previous left knee replacement 30+ years ago doing well. Hip has progressed to the point of affecting his quality life. Pain at rest and with all physical activities. Takes Tylenol for his pain occasional [id number] anti-inflammatories. Otherwise healthy.Review of systems negative for fever, weight loss, malaise, fatigue, significant headache, vision changes, hearing loss, neck swelling, cough, chest pain, shortness of breath, dyspnea on exertion, abdominal pain, nausea, vomiting, diarrhea, urinary dysfunction, upper/lower extremity numbness/tingling/weakness/edema, heat/cold intolerance On exam antalgic gait. Left hip flexion is 70 with virtually no rotation. Abducts 10. Negative straight leg raise. Neurologically intact. Right hip flexion 100 and rotation of 30. X-rays show advanced arthritis with obliteration of the joint space. Assessment left hip arthritis. We discussed treatment options and he is an excellent candidate for hip replacement. Risks and benefits were discussed and all questions answered. Will schedule this for early next year. All questions answered. Did order him topical anti-inflammatory gel. Ravin Hough MD CONSULT ORTHOPAEDIC: HIP PRIMARY CARE PHYSICIAN: Josue Aguilera MD REFERRING PROVIDER: [facility] [id number] [facility] [address] ASSESSMENT & PLAN Impression: Left Hip Severe Degenerative Osteoarthritis, Primary Diagnoses: (M16.12) Primary osteoarthritis of left hip (primary encounter diagnosis) (Z96.642) Status post left hip replacement Based upon the evaluation today and after discussions with Santa Pearl, Santa Pearl has significant, worsening pain at the hip. This pain is increased with activity and weight bearing, and interferes with activities of daily living. These symptoms have continued despite a number of non-surgical measures, including a trial of oral pain medication (for at least 12 weeks). At this point, thepatient will not benefit from further PT due to the severity of their condition. The patient's physical examination is consistent with limitations in range of motion, pain with passive range of motion, and an antalgic gait. These examination findings are corroborated by imaging findings of joint space narrowing, periarticular osteophyte formation, and subchondral sclerosis. The patient has been treated by the practice and all reasonable treatments have failed to control the disease, which causes significant pain and limits activities of daily living. The patient has failed conservative treatment and joint replacement surgery was discussed and agreed upon by both provider and patient. The patient has elected to proceed with surgical management to improve function and relieve pain refractory to non-surgical measures: Left Primary Total Hip Arthroplasty as evidenced by progressive symptoms. Progressive symptoms include: Pain impacting sleep or causing fatigue Pain impacting work Pain worsened by weight bearing Pain effecting living situation Pain limiting ability to stay fit and healthy Unable to ambulate 2 blocks without significant pain and dysfunction. Surgery Details Date and Location: [facility] on 12/31/24. Implants: Krystal Robotic: No Predicted LOS: 2 days (Inpatient candidate) The risks and benefits of surgery were discussed at length including but not limited to the risks of infection, bleeding, nerve or blood vessel injury, deep venous thrombosis, pulmonary embolism, , paralysis, hip dislocation, leg length discrepancy (including requiring use of permanent shoe lift), bone fracture, component loosening or failure requiring re-operation or amputation. Informed consent was obtained and the patient was scheduled. We also discussed fixation strategies including cement and cementless fixation and modern alternative bearings including metal or ceramic with cross-linked polyethylene, [id number] and [id number] as well as advantages and disadvantages of each. We also discussed less invasive surgical approaches and reported benefits and risks of these approaches. The patient has been ordered: Office Visit on 10/07/24 WALKER FOLDING WHEELED W/O S RAISED TOILET SEAT TOILET RAIL, EACH BATH/SHOWER CHAIR CONSULT TO ORTHOPAEDICS CONSULT TO PHYSICAL THERAPY No orders placed today. CONSULTS: Patient does not require consults for optimization at this time. Total Joint Arthroplasty: Risk Calculator Santa Pearl has a 19.8% chance of NOT returning home at discharge for a Primary total Hip replacement. Santa's estimated Length of Stay is 2 days (Inpatient candidate). Santa's 30 day chance ofreadmission is 2.44%. Readmission Probability 2.44 % (within 30 days following surgery) Estimated LOS 2 days Discharge Disposition Probability D/C to Home 80.2 % D/C to SNF 19.8 % These calculations are based on the following factors: - 79 years of age - sex is male - BMI of 26.86 kg/m2 - NarxCare score of 0 - 0 hospitalizations in the last 12 months - no history of heart disease - history of diabetes - no history of COPD - no history of anemia - preoperative ambulation: independent community distances - 3 step(s) to enter home - bed location is NOT on the first floor - bath location is NOT on the first floor - caregiver is consistent - home is not more than 150 miles away - PROMIS-10 Mental Health T score 50+ - Marital status: Risk Factors for Total Knee Arthroplasty (TKA) Major Risk Factors Obesity normal High: BMI > 40 Moderate: BMI 30-40 Normal: BMI < 30 Diabetes Moderate Risk High: A1C > 8 Moderate: A1C 7-8 Normal: A1C < 7 Hx of DVT / PE normal High: dx of DVT / PE Normal: no dx of DVT / PE Smoking normal High: Current smoker Normal: Non smoker Narcotics Use normal High:NarxCare >=300 Moderate: 100-299 Normal: 0-99 Depression normal High: PHQ-9 >14 Moderate: PHQ-9 5-14 Normal: PHQ-9 < 5 Area Deprivation Index (LALA) Unknown Risk High: LALA Score > 75 Moderate: LALA 50-75 Normal: LALA < 50 Diabetes: Well controlled - Santa has been diagnosed with Type 2 Diabetes. His last Hemoglobin A1Cwas 6.6 (05/28/2024). Pt is followed by [facility] for Type 2 Diabetes - last seen on 09/02/2024. Area Deprivation Index (LALA) 06/26/2022 03/14/2023 LALA Score National Score 57 65 Patient Health Questionnaire (PHQ-9) 05/28/2024 08/31/2024 10/06/2024 PHQ-9 PHQ-2 Score 0 0 0 PHQ-9 Score 0 (0-4) minimal depression, (5-9) mild depression, (10-14) moderate depression, (15-19) moderately severe depression, (20-27) severe depression Bone Density Risk Screen Santa Pearl is at risk for bone loss and has not had a bone densitometry scan in the last 2 years (date of last scan: None on file). Recommend a bone densitometry scan and if indicated on the bone density results, a consult to a bone health specialist (Rheumatology, Endocrinology, or Women's Health) for bone assessment. Risk Factors: History of falls Prednisone or use of systemic steroids Additional Risk Factors Malnutrition: No Malnutrition Screening Tool (MST) score on file- please complete the MST screeningtool (click here to open) and refresh the note. ACTIVE PROBLEM LIST Hypothyroidism Knee Joint Replacement By Other Means Nodular prostate without urinary obstruction Other Hyperlipidemia Dysmetabolic Syndrome Thyroid Nodule 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 Coronary Artery S/P Right Coronary Artery (Rca) Stent Placement Coronary Artery Disease Involving Jam[place] Coronary Artery of [place] Heart Without Angina Pectoris Sinus Bradycardia Essential Hypertension Subarachnoid Bleed (Hcc) Controlled Type 2 Diabetes Mellitus Without Complication, Without Long-Term Current Use of Insulin (Hcc) SUBJECTIVE CHIEF COMPLAINT: Hip Pain HPI: Santa Pearl is a 79 year old patient with the presenting complaint of New of the Left Hip. Santa Pearl has had progressive problems with the hip(s) constantly over the past 3 year(s) interfering with activities which include walking 2 blocks, doing tail ripper, participating in family activities, enjoying hobbies, exercise, rising from a sitting position, standing for prolonged periods of time, getting in and out of a car, dressing, climbing stairs, and safety-increased risk for fall. The problem began limiting activities 1-3 years ago. Santa reports a current pain level of 3 (Hip-Left). He describes the pain as Sharp. The pain is Intermittent, and has lasted for 1 Minutes. Interventions tried include Relaxation. PROMIS Physical Function Score Descriptive Summary for PROMIS Physical Function T-score = 40 (Percentile 16) Much difficulty - Do 2 hours of physical labor. Some difficulty - Walk more than a mile (1.6 km). 09/17/2022 10/06/2024 PROMIS CAT Physical Function T-Score 51 (within normal limits) 40 (mild dysfunction) Percentile 54 16* FUNCTIONAL STATUS: Walk indoors, such as around the house (1.75 METs) Do light work around the house, such as dusting or washing dishes (2.70 METs) Take care of self, that is eating, dressing, bathing, using the toilet (2.75 METs) PREVIOUS TREATMENTS: Past anti-inflammatory medications (not necessarily for this reason for visit): methylprednisolone, prednisone Medical: OTC NSAIDS for 3 Months or Greater (Tylenol / acetaminophen) Physical Therapy: Use of Ambulatory Aid and Activities Modified REVIEW OF SYSTEMS: PAIN ASSESSMENT: See HPI. MUSCULOSKELETAL: See HPI. 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 HYPERLIPIDEMIA NEC/NOS Hyperplasia of prostate Personal history of colonic polyps S/P angioplasty with stent 02/21/2010 x2 Thyroid nodule 08/05/2012 Unspecified hemorrhoids without mention of complication Unspecified hypothyroidism PAST SURGICAL HISTORY Procedure Laterality Date ARTHRP KNE CONDYLE&PLATU MEDIAL&LAT COMPARTMENTS 1991 Knee replacement, total LEFT ARTHRP KNE CONDYLE&PLATU MEDIAL&LAT COMPARTMENTS 2006 PARTIAL KNEE REPLACEMENT RIGHT CC CORONARY STENT 02/2010 x2 COLONOSCOPY & POLYPECTOMY 01/14/02 repeat 2011 FNA WITH IMAGING 08/21/12 U/S FNA right thyroid lesion FAMILY HISTORY Problem Relation Age of Onset Cancer Mother LYMPHATIC Heart Father IA Emphysema Father smoker/welder shielded metal arc Cancer Maternal Grandmother Social History Tobacco Use Smoking status: Former Current packs/day: 0.00 Average packs/day: 1 pack/day for 25.0 years (25.0 ttl pk-yrs) Types: Cigarettes Start date: 11/24/1964 Quit date: 11/24/1989 Years since quittin.8 Smokeless tobacco: Never Vaping Use Vaping status: Never Used Substance Use Topics Alcohol use: Yes Alcohol/week: 1.0 standard drink of alcohol Types: 1 Cans of Beer (12oz) per week Drug use: No ALLERGIES: [place]ut MEDICATIONS: atorvastatin (LIPITOR) 20 mg tablet Take 1 tablet by mouth once daily. lisinopril (ZESTRIL) 5 mg tablet Take 1 tablet by mouth once daily. aspirin, enteric coated (ASPIRIN, ENTERIC COATED) 81 mg EC tablet Take 1 tablet by mouth once daily. levothyroxine (SYNTHROID) 112 mcg tablet Take 1 tablet by mouth once daily. metFORMIN ER (GLUCOPHAGE XR) 500 mg 24 hr tablet Take 1 tablet by mouth daily with breakfast. nitroglycerin sublingual (NITROQUICK) 0.4 mg SL tablet Dissolve 1 tablet under the tongue every 5 minutes as needed for chest pain, up to 3 doses. If no relief, call 911. OBJECTIVE PHYSICAL EXAM There were no vitals taken for this visit. All other systems deferred. GENERAL: Appears healthy, well-nourished, no deformities. HABITUS: Normal GAIT: Antalgic to the right HIP EXAM: Left: ROM: Extension: full extension Flexion: 70 degrees Internal Rotation: 0 degrees External Rotation: 0 degrees Abduction: 10 degrees Adduction: 10 degrees Strength: Pain with resisted abduction and Pain with resisted hip flexion Palpation: No tenderness Log roll: painful. Straight leg raise: Negative Neurovascular Status: Sensation Intact, Moves foot and ankle up & down, and 2+ posterial tibial DATA: Most recent hip imaging was completed on 09/08/2024 (XR HIP GENERAL 3V PELV/AP/LAT LEFT) . Diagnostic tests reviewed for today's visit: Left hip X-Ray: X-rays show advanced arthritis with obliteration of the joint space The following conditions were addressed during the office visit today: Obesity - Weight management strategies were discussed including diet and exercise. A Consult to Weight Management will be completed to follow up on the plan of care. Malnutrition - Nutrition counseling SIGNATURE: Ravin Hough MD PATIENT NAME: Santa Pearl DATE: October 07, 2024 TIME: 1:37 PM documented in this encounterOur [facility]11-[facility]24 Telephone encounter Note * Telephone Encounter - Mable Amado RN - 10/06/2024 2:07 PM EST Patient calling in regarding medication refills. Information reviewed with patient. Mable Amado RN [facility]11-25-2024 Miscellaneous Notes* Telephone Encounter - Mable Amado RN - 10/06/2024 2:07 PM EST Patient calling in regarding medication refills. Information reviewed with patient. Mable Amado RN documented in this encounterOur Lady Of [facility]cy [facility]11-25-2024 Telephone encounter Note * Telephone Encounter - Marcos Field LPN - 10/06/2024 1:26 PM EST Prescription Refill Information The patient has been identified by name and date of : Yes Caregiver verified no other encounters exist for this prescription request: Yes Caregiver confirmed with patient/requestor that no other refills are due, in the near future, with this provider at this time: Yes The last office visit in the department: 09/02/24 Does the patient have a future office visit with this provider/department: Yes 11/28/24 Requested Prescriptions Pending Prescriptions Disp Refills atorvastatin (LIPITOR) 20 mg tablet 90 tablet 3 Sig: Take 1 tablet by mouth once daily. lisinopril (ZESTRIL) 5 mg tablet 90 tablet 3 Sig: Take 1 tablet by mouth once daily. Marcos Field LPN October 06, 2024 1:27 PM [facility]11-25-2024 Miscellaneous Notes* Telephone Encounter - Marcos Field LPN - 10/06/2024 1:26 PM EST Prescription Refill Information The patient has been identified by name and date of : Yes Caregiver verified no other encounters exist for this prescription request: Yes Caregiver confirmed with patient/requestor that no other refills are due, in the near future, with this provider at this time: Yes The last office visit in the department: 09/02/24 Does the patient have a future office visit with this provider/department: Yes 11/28/24 Requested Prescriptions Pending Prescriptions Disp Refills atorvastatin (LIPITOR) 20 mg tablet 90 tablet 3 Sig: Take 1 tablet by mouth once daily. lisinopril (ZESTRIL) 5 mg tablet 90 tablet 3 Sig: Take 1 tablet by mouth once daily. Marcos Field LPN October 06, 2024 1:27 PM documented in this encounterOur Lady Of [facility]10-28-2024 Telephone encounter Note * Telephone Encounter - Manuela Hernandez MA - 09/08/2024 11:27 AM EDT Pt notified of results via [employer] Manuela Hernandez Ma Advised to call in and schedule ortho appt. [facility] Miscellaneous Notes* Telephone Encounter - Manuela Hernandez MA - 09/08/2024 11:27 AM EDT Pt notified of results via [employer] Manuela Hernandez Ma Advised to call in and schedule ortho appt. 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 I will refer you to orthopedics. You may need to call scheduling for an appt. 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 I will refer you to orthopedics. You may need to call scheduling for an appt. [facility] Telephone encounter Note* Telephone Encounter - Manuela Hernandez MA - 09/08/2024 11:26 AM EDT Pt notified of results via [employer] Manuela Hernandez Ma [facility]10-28-[facility] Miscellaneous Notes* Telephone Encounter - Manuela Hernandez MA - 09/08/2024 11:26 AM EDT Pt notified of results via [employer]. Manuela Hernandez Ma * Telephone Encounter - Manuela Hernandez MA - 09/08/2024 11:23 AM EDT ----- Message from Michaela Heart sent at 09/08/2024 8:03 AM EDT ----- Xray of left knee was normal and prosthesis is stable. documented in this encounterOur Lady Of Mercy Hospital10-28-2024 Telephone encounter Note * Telephone Encounter - Manuela Hernandez MA - 09/08/2024 11:23 AM EDT ----- Message from Michaela Heart sent at 09/08/2024 8:03 AM EDT ----- Xray of left knee was normal and prosthesis is stable. [facility] History of Present illness Narrative* Rob Infante RT(R) - 09/02/2024 10:40 AM EDT Radiology Service Progress Note PATIENT NAME: Santa Pearl DATE OF SERVICE: September 02, 2024 TIME: 10:07 AM PATIENT IDENTITY VERIFICATION COMPLETED USING TWO (2) IDENTIFIERS: Name and Date of confirmedby patient verbally. FALL SCREENING: Has the patient had 2 falls in the last year or 1 fall with injury or currently using an Ambulatory Assistive Device (Walker, Cane, Wheelchair, Crutches, etc.)? No PATIENT GENDER DATA: Male PATIENT RELEVANT IMPLANT DATA REVIEWED: Yes PATIENT PRESENTS WITH AN IMPLANTABLE OR ATTACHED UNIFORM CAP OPERATOR: No RADIOLOGY DEPARTMENT: General X-ray: Exam(s) Completed: Pelvis X-Ray: Pelvis with Hip Left Lower Extremity X-Ray(s): Knee, AP / Lat / Tunne / Merchant Left PERIPHERAL IV DATA: Not applicable SIGNED BY: RT Reshma(R) September 02, 2024 10:07 AM documented in this encounterOur Lady Of Mercy [facility]10-22-2024 NoteHNO ID: [id number] Author: ROB INFANTE RT(Radha) Service: ? Author Type: System Admin Type: Progress Notes Filed: 09/02/2024 10:29 Note Text: Radiology Service Progress Note PATIENT NAME: Santa Pearl DATE OF SERVICE: September 02, 2024 TIME: 10:07 AM PATIENT IDENTITY VERIFICATION COMPLETED USING TWO (2) IDENTIFIERS: Name and Date of confirmed by patient verbally. FALL SCREENING: Has the patient had 2 falls in the last year or 1 fall with injury or currently using an Ambulatory Assistive Device (Walker, Cane, Wheelchair, Crutches, etc.)? No PATIENT GENDER DATA: Male PATIENT RELEVANT IMPLANT DATA REVIEWED: Yes PATIENT PRESENTS WITH AN IMPLANTABLE OR ATTACHED UNIFORM CAP OPERATOR: No RADIOLOGY DEPARTMENT: General X-ray: Exam(s) Completed: Pelvis X-Ray: Pelvis with Hip Left Lower Extremity X-Ray(s): Knee, AP / Lat / Tunne / Merchant Left PERIPHERAL IV DATA: Not applicable SIGNED BY: RT Reshma(R) September 02, 2024 10:07 [facility]10-22-2024 Instructions* Patient Instructions* Michaela Heart APRN.CNP - 09/02/2024 9:59 AM EDT 1) Xrays today Left hip and knee 2) Labs in Nov before appt. With Dr. Aguilera 3) See Dr. Aguilera 11/28/24 documented in this encounterOur Lady Of Mercy Hospital10-22-2024 NoteHNO ID: [id number] Author: MICHAELA HEART APRN.CNP Service: ? Author Type: Clinical Nurse Specialist Type: Progress Notes Filed: 09/02/2024 09:59 Note Text: This is a 79 year old male who presents today with: Patient presents with: Diabetes: 3 month exam HISTORY OF PRESENT ILLNESS: Santa Pearl is a 79 year old male. Patient presents with: Diabetes: 3 month exam A month ago, he was working out in the yard. That night, his left knee swelled up. 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 Iced and took NSAIDS and acetaminophen. Swelling improved. Anterior thigh hurt terrible even to light touch. No instability. 0/10 at this moment, relieved with [place]. Sat down in chair and noticed terrible pain in left hip (deep in left buttock) no instability. 0/10 this morning, relieved with sitting. Pain for a couple days DM: Reports overall feeling sore Medication side effects: Some loose stools but better since taking ER. Home sugar checks: No Hypoglycemic spells: No. Watching diet: Yes. Unexpected weight loss: 4-5 lb Polyuria, polydipsia: No. Vision Changes: No. Foot lesions or numbness or pain: bottoms of feet numb- not since medication though. 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 HYPERLIPIDEMIA NEC/NOS Hyperplasia of prostate Personal history of colonic polyps S/P angioplasty with stent 02/21/2010 x2 Thyroid nodule 08/05/2012 Unspecified hemorrhoids without mention of complication Unspecified hypothyroidism PAST SURGICAL HISTORY Procedure Laterality Date ARTHRP KNE CONDYLEANDPLATU MEDIALANDLAT COMPARTMENTS 1990 Knee replacement, total LEFT ARTHRP KNE CONDYLEANDPLATU MEDIALANDLAT COMPARTMENTS 2006 PARTIAL KNEE REPLACEMENT RIGHT CC CORONARY STENT 02/2010 x2 COLONOSCOPY AND POLYPECTOMY 01/14/02 repeat 2011 FNA WITH IMAGING 08/21/12 U/S FNA right thyroid lesion ALLERGIES [place]ut MEDICATIONS Current Outpatient Medications Medication Sig aspirin, enteric coated (ASPIRIN, ENTERIC COATED) 81 mg EC tablet Take 1 tablet by mouth once daily. levothyroxine (SYNTHROID) 112 mcg tablet Take 1 tablet by mouth once daily. metFORMIN ER (GLUCOPHAGE XR) 500 mg 24 hr tablet Take 1 tablet by mouth daily with breakfast. atorvastatin (LIPITOR) 20 mg tablet Take 1 tablet by mouth once daily. lisinopril (ZESTRIL) 5 mg tablet Take 1 tablet by mouth once daily. nitroglycerin sublingual (NITROQUICK) 0.4 mg SL tablet Dissolve 1 tablet under the tongue every 5 minutes as needed for chest pain, up to 3 doses. If no relief, call 911. No current facility-administered medications for this visit. FAMILY HISTORY Problem Relation Age of Onset Cancer Mother LYMPHATIC Heart Father IA Emphysema Father smoker/welder shielded metal arc Cancer Maternal Grandmother Social History Tobacco Use Smoking status: Former Current packs/day: 0.00 Average packs/day: 1 pack/day for 25.0 years (25.0 ttl pk-yrs) Types: Cigarettes Start date: 11/24/1964 Quit date: 11/24/1989 Years since quittin.7 Smokeless tobacco: Never Vaping Use Vaping status: Never Used Substance Use Topics Alcohol use: Yes Alcohol/week: 1.0 standard drink of alcohol Types: 1 Cans of Beer (12oz) per week Drug use: No EXAM: BP 120/68 Pulse 63 Resp 16 Wt 84.9 kg (187 lb 2.7 oz) SpO2 97% BMI 26.86 kg/m? PHYSICAL EXAM: Physical Exam Vitals reviewed. Constitutional: Appearance: Normal appearance. HENT: Head: Normocephalic. Cardiovascular: Rate and Rhythm: Normal rate and regular rhythm. Pulses: Normal pulses. Heart sounds: Normal heart sounds. Comments: Very distant heart sounds Pulmonary: Effort: Pulmonary effort is normal. Breath sounds: Normal breath sounds. Musculoskeletal: Comments: Left knee poor land varner, flexion and extension easy, able to externally rotate, some green ecchymosis along midline into lower thigh Left hip pain in buttock- poor ability to bend and externally rotate. No shortening of left leg and no external rotation Skin: General: Skin is warm and dry. Neurological: General: No focal deficit present. Mental Status: He is alert and oriented to person, place, and time. Psychiatric: Mood and Affect: Mood normal. Behavior: Behavior normal. LABS: Labs in Nov ASSESSMENT/PLAN: 1. Left hip pain - ICD9: 719.45, ICD10: M25.552 (primary diagnosis) Acute paion - XR HIP GENERAL 3V PELV/AP/LAT LEFT - XR KNEE GENERAL 4V AP BOTH/PA BOTH/LAT/MERC LEFT 2. Left knee pain, unspecified chronicity - ICD9: 719.46, ICD10: M25.562 Get Xray to check prosthesis 3. Controlled type 2 diabetes mellitus without complication, without long-term current use of insulin (HCC) - ICD9: 250.00, ICD10: E11.9 - Controll (more content not included)...[facility]10-22-2024 History of Present illness Narrative* Michaela Heart APRN.OB/GYN DOCTOR - 09/02/2024 9:39 AM EDT This is a 79 year old male who presents today with: Patient presents with: Diabetes: 3 month exam HISTORY OF PRESENT ILLNESS: Santa Pearl is a 79 year old male. Patient presents with: Diabetes: 3 month exam A month ago, he was working out in the yard. That night, his left knee swelled up. 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 Iced and took NSAIDS and acetaminophen. Swelling improved. Anterior thigh hurt terrible even to light touch. No instability. 0/10 at this moment, relieved with sitting [place]. Sat down in chair and noticed terrible pain in left hip (deep in left buttock) no instability. 0/10 this morning, relieved with sitting. Pain for a couple days DM: Reports overall feeling sore Medication side effects: Some loose stools but better since taking ER. Home sugar checks: No Hypoglycemic spells: No. Watching diet: Yes. Unexpected weight loss: 4-5 lb Polyuria, polydipsia: No. Vision Changes: No. Foot lesions or numbness or pain: bottoms of feet numb- not since medication though. 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 HYPERLIPIDEMIA NEC/NOS Hyperplasia of prostate Personal history of colonic polyps S/P angioplasty with stent 02/21/2010 x2 Thyroid nodule 08/05/2012 Unspecified hemorrhoids without mention of complication Unspecified hypothyroidism PAST SURGICAL HISTORY Procedure Laterality Date ARTHRP KNE CONDYLE&PLATU MEDIAL&LAT COMPARTMENTS 1991 Knee replacement, total LEFT ARTHRP KNE CONDYLE&PLATU MEDIAL&LAT COMPARTMENTS 2007 PARTIAL KNEE REPLACEMENT RIGHT CC CORONARY STENT 02/2010 x2 COLONOSCOPY & POLYPECTOMY 01/14/02 repeat 2011 FNA WITH IMAGING 08/21/12 U/S FNA right thyroid lesion ALLERGIES [place] MEDICATIONS Current Outpatient Medications Medication Sig aspirin, enteric coated (ASPIRIN, ENTERIC COATED) 81 mg EC tablet Take 1 tablet by mouth once daily. levothyroxine (SYNTHROID) 112 mcg tablet Take 1 tablet by mouth once daily. metFORMIN ER (GLUCOPHAGE XR) 500 mg 24 hr tablet Take 1 tablet by mouth daily with breakfast. atorvastatin (LIPITOR) 20 mg tablet Take 1 tablet by mouth once daily. lisinopril (ZESTRIL) 5 mg tablet Take 1 tablet by mouth once daily. nitroglycerin sublingual (NITROQUICK) 0.4 mg SL tablet Dissolve 1 tablet under the tongue every 5 minutes as needed for chest pain, up to 3 doses. If no relief, call 911. No current facility-administered medications for this visit. FAMILY HISTORY Problem Relation Age of Onset Cancer Mother LYMPHATIC Heart Father IA Emphysema Father smoker/welder shielded metal arc Cancer Maternal Grandmother Social History Tobacco Use Smoking status: Former Current packs/day: 0.00 Average packs/day: 1 pack/day for 25.0 years (25.0 ttl pk-yrs) Types: Cigarettes Start date: 11/24/1964 Quit date: 11/24/1989 Years since quittin.7 Smokeless tobacco: Never Vaping Use Vaping status: Never Used Substance Use Topics Alcohol use: Yes Alcohol/week: 1.0 standard drink of alcohol Types: 1 Cans of Beer (12oz) per week Drug use: No EXAM: BP 120/68 Pulse 63 Resp 16 Wt 84.9 kg (187 lb 2.7 oz) SpO2 97% BMI 26.86 kg/m PHYSICAL EXAM: Physical Exam Vitals reviewed. Constitutional: Appearance: Normal appearance. HENT: Head: Normocephalic. Cardiovascular: Rate and Rhythm: Normal rate and regular rhythm. Pulses: Normal pulses. Heart sounds: Normal heart sounds. Comments: Very distant heart sounds Pulmonary: Effort: Pulmonary effort is normal. Breath sounds: Normal breath sounds. Musculoskeletal: Comments: Left knee poor land varner, flexion and extension easy, able to externally rotate, some green ecchymosis along midline into lower thigh Left hip pain in buttock- poor ability to bend and externally rotate. No shortening of left leg andno external rotation Skin: General: Skin is warm and dry. Neurological: General: No focal deficit present. Mental Status: He is alert and oriented to person, place, and time. Psychiatric: Mood and Affect: Mood normal. Behavior: Behavior normal. LABS: Labs in Nov ASSESSMENT/PLAN: 1. Left hip pain - ICD9: 719.45, ICD10: M25.552 (primary diagnosis) Acute paion - XR HIP GENERAL 3V PELV/AP/LAT LEFT - XR KNEE GENERAL 4V AP BOTH/PA BOTH/LAT/MERC LEFT 2. Left knee pain, unspecified chronicity - ICD9: 719.46, ICD10: M25.562 Get Xray to check prosthesis 3. Controlled type 2 diabetes mellitus without complication, without long-term current use of insulin (HCC) - ICD9: 250.00, ICD10: E11.9 - Controlled - Continue current medications - Labs in Nov. Discussed treatment plan and patient voices understanding. Patient's questions answered appropriately. Medications and potential side effects were discussed and patient voices understanding. Return to the office as scheduled or as needed for worsening/no improvement. Michaela Heart APRN.CNP documented in this encounterOur [facility]09-17-2024 Telephone encounter Note * Telephone Encounter - Manuela Hernandez MA - 07/29/2024 12:17 PM EDT Notified via [employer]. Manuela Hernandez MA [facility]09-17-2024 Miscellaneous Notes* Telephone Encounter - Manuela Hernandez MA - 07/29/2024 12:17 PM EDT Notified via [employer]. Manuela Hernandez MA * Telephone Encounter - Michaela Heart APRN.CNP - 07/29/2024 10:01 AM EDT I prefer to get labs after our appointment so I can address any issues that may need more information. This is in line with [employer] that said to do labs nonfasting as theyare more reflective of how patients actually look day-to-day. Your triglycerides are not skyhigh and that is the only thing that is affected by lab work that is nonfasting. * Telephone Encounter - Jo-Ann Reardon MA - 07/25/2024 8:41 AM EDT NOV: 09/02/24 at 10 AM (3 Month DM F/U) with JS No future labs ordered. Please advise. Jo-Ann Reardon MA documented in this encounterOur Lady Of [facility]cy [facility]09-17-2024 Telephone encounter Note * Telephone Encounter - Michaela Heart APRN.CNP - 07/29/2024 10:01 AM EDT I prefer to get labs after our appointment so I can address any issues that may need more information. This is in line with [employer] that said to do labs nonfasting as theyare more reflective of how patients actually look day-to-day. Your triglycerides are not skyhigh and that is the only thing that is affected by lab work that is nonfasting. [facility]-13-[facility] Telephone encounter Note* Telephone Encounter - Jo-Ann Reardon MA - 07/25/2024 8:41 AM EDT NOV: 09/02/24 at 10 AM (3 Month DM F/U) with JS No future labs ordered. Please advise. Jo-Ann Reardon MA [facility]24 Telephone encounter Note* Telephone Encounter - Mable Amado RN - 07/02/2024 9:53 AM EDT Patient calling with question regarding his current prescriptions. Information provided. Mable Amado RN [facility]08-21-2024 Miscellaneous Notes* Telephone Encounter - Mable Amado RN - 07/02/2024 9:53 AM EDT Patient calling with question regarding his current prescriptions. Information provided. Mable Amado RN documented in this encounterOur Lady Of [facility]cy Hospital08-20-2024 Telephone encounter Note * Telephone Encounter - Michaela Heart APRN.CNP - 07/01/2024 5:35 PM EDT The following approved medication requests have been transmitted electronically. Requested Prescriptions Pending Prescriptions Disp Refills aspirin, enteric coated (ASPIRIN, ENTERIC COATED) 81 mg EC tablet 30 tablet 11 Sig: Take 1 tablet by mouth once daily. levothyroxine (SYNTHROID) 112 mcg tablet 90 tablet 1 Sig: Take 1 tablet by mouth once daily. Michaela Heart APRN.CNP [facility]08-20-2024 Miscellaneous Notes* Telephone Encounter - Michaela Heart APRN.CNP - 07/01/2024 5:35 PM EDT The following approved medication requests have been transmitted electronically. Requested Prescriptions Pending Prescriptions Disp Refills aspirin, enteric coated (ASPIRIN, ENTERIC COATED) 81 mg EC tablet 30 tablet 11 Sig: Take 1 tablet by mouth once daily. levothyroxine (SYNTHROID) 112 mcg tablet 90 tablet 1 Sig: Take 1 tablet by mouth once daily. Michaela Heart APRN.CNP * Telephone Encounter - Los Abraham LPN - 07/01/2024 4:55 PM EDT Prescription Refill Information The patient has been identified by name and date of : Yes Caregiver verified no other encounters exist for this prescription request: Yes Caregiver confirmed with patient/requestor that no other refills are due, in the near future, with this provider at this time: Yes The last office visit in the department: 06/02/24 Does the patient have a future office visit with this provider/department: Yes, 09/02/24 Requested Prescriptions Pending Prescriptions Disp Refills aspirin, enteric coated (ASPIRIN, ENTERIC COATED) 81 mg EC tablet 30 tablet 11 Sig: Take 1 tablet by mouth once daily. levothyroxine (SYNTHROID) 112 mcg tablet 90 tablet 1 Sig: Take 1 tablet by mouth once daily. atorvastatin (LIPITOR) 20 mg tablet 90 tablet 3 Sig: Take 1 tablet by mouth once daily. lisinopril (ZESTRIL) 5 mg tablet 90 tablet 3 Sig: Take 1 tablet by mouth once daily. *Lisinopril 5mg and Lipitor 20mg both written on 01/18/24 #90 with 3 refills. Rx(s) not due. Los Abraham LPN July 01, 2024 4:55 PM documented in this encounterOur [facility] Telephone encounter Note * Telephone Encounter - Michaela Heart APRN.CNP - 07/01/2024 5:34 PM EDT The following approved medication requests have been transmitted electronically. Requested Prescriptions Pending Prescriptions Disp Refills metFORMIN ER (GLUCOPHAGE XR) 500 mg 24 hr tablet 90 tablet 3 Sig: Take 1 tablet by mouth daily with breakfast. Michaela Heart APRN.CNP [facility]08-20-2024 Miscellaneous Notes* Telephone Encounter - Michaela Heart APRN.CNP - 07/01/2024 5:34 PM EDT The following approved medication requests have been transmitted electronically. Requested Prescriptions Pending Prescriptions Disp Refills metFORMIN ER (GLUCOPHAGE XR) 500 mg 24 hr tablet 90 tablet 3 Sig: Take 1 tablet by mouth daily with breakfast. Michaela Heart APRN.CNP * Telephone Encounter - Los Abraham LPN - 07/01/2024 5:01 PM EDT Prescription Refill Information The patient has been identified by name and date of : Yes Caregiver verified no other encounters exist for this prescription request: Yes Caregiver confirmed with patient/requestor that no other refills are due, in the near future, with this provider at this time: Yes The last office visit in the department: 06/02/24 Does the patient have a future office visit with this provider/department: Yes, 09/02/24 Requested Prescriptions Pending Prescriptions Disp Refills metFORMIN ER (GLUMETZA) 500 mg 24 hr tablet 30 tablet 0 Sig: Take 1 tablet by mouth daily with breakfast. Los Abraham LPN July 01, 2024 5:01 PM documented in this encounterOur [facility]08-[facility] Telephone encounter Note * Telephone Encounter - Los Abraham LPN - 07/01/2024 5:01 PM EDT Prescription Refill Information The patient has been identified by name and date of : Yes Caregiver verified no other encounters exist for this prescription request: Yes Caregiver confirmed with patient/requestor that no other refills are due, in the near future, with this provider at this time: Yes The last office visit in the department: 06/02/24 Does the patient have a future office visit with this provider/department: Yes, 09/02/24 Requested Prescriptions Pending Prescriptions Disp Refills metFORMIN ER (GLUMETZA) 500 mg 24 hr tablet 30 tablet 0 Sig: Take 1 tablet by mouth daily with breakfast. Los Abraham LPN July 01, 2024 5:01 PM [facility]08-[facility] Telephone encounter Note* Telephone Encounter - Los Abraham LPN - 07/01/2024 4:55 PM EDT Prescription Refill Information The patient has been identified by name and date of : Yes Caregiver verified no other encounters exist for this prescription request: Yes Caregiver confirmed with patient/requestor that no other refills are due, in the near future, with this provider at this time: Yes The last office visit in the department: 06/02/24 Does the patient have a future office visit with this provider/department: Yes, 09/02/24 Requested Prescriptions Pending Prescriptions Disp Refills aspirin, enteric coated (ASPIRIN, ENTERIC COATED) 81 mg EC tablet 30 tablet 11 Sig: Take 1 tablet by mouth once daily. levothyroxine (SYNTHROID) 112 mcg tablet 90 tablet 1 Sig: Take 1 tablet by mouth once daily. atorvastatin (LIPITOR) 20 mg tablet 90 tablet 3 Sig: Take 1 tablet by mouth once daily. lisinopril (ZESTRIL) 5 mg tablet 90 tablet 3 Sig: Take 1 tablet by mouth once daily. *Lisinopril 5mg and Lipitor 20mg both written on 01/18/24 #90 with 3 refills. Rx(s) not due. Los Abraham LPN July 01, 2024 4:55 PM [facility]07-[facility] Note* Addendum Note - Michaela Heart APRN.CNP - 06/02/2024 10:22 AM EDTAddended by: MICHAELA HEART on: 06/02/2024 10:22 AM Modules accepted: Orders [facility]07-22-2024 Miscellaneous Notes* Addendum Note - Michaela Heart APRN.CNP - 06/02/2024 10:22 AM EDTAddended by: MICHAELA HEART on: 06/02/2024 10:22 AM Modules accepted: Orders * Addendum Note - Dominga Dejesus MA - 06/02/2024 10:15 AM EDTAddended by: DOMINGA DEJESUS on: 06/02/2024 10:15 AM Modules accepted: Orders documented in this encounterOur [facility]07-22-2024 Note* Addendum Note - Dominga Dejesus MA - 06/02/2024 10:15 AM EDTAddended by: DOMINGA DEJESUS on: 06/02/2024 10:15 AM Modules accepted: Orders [facility]07-[facility] Instructions* Patient Instructions* Michaela Heart APRN.CNP - 06/02/2024 10:10 AM EDT 1) Stop metformin 2) In 2 days, start metformin SA 500 mg daily 3) Avoid sweets and simple carbohydrates- always pair a protein with snacks and meals 4) Covid booster today 5) Follow up in 3 months documented in this encounterOur [facility] Of [facility]07-22-2024 NoteHNO ID: [id number] Author: MICHAELA HEART APRN.CNP Service: ? Author Type: Clinical Nurse Specialist Type: Progress Notes Filed: 06/02/2024 10:11 Note Text: This is a 79 year old male who presents today with: Patient presents with: Diabetes HISTORY OF PRESENT ILLNESS: Santa Pearl is a 79 year old male. Patient presents with: Diabetes Having a lot of nausea and diarrhea from metformin. Does exercise regularly, walks 1/2 mile daily. Has not experienced any crashes with blood sugar. 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 HYPERLIPIDEMIA NEC/NOS Hyperplasia of prostate Personal history of colonic polyps S/P angioplasty with stent 02/21/2010 x2 Thyroid nodule 08/05/2012 Unspecified hemorrhoids without mention of complication Unspecified hypothyroidism PAST SURGICAL HISTORY Procedure Laterality Date ARTHRP KNE CONDYLEANDPLATU MEDIALANDLAT COMPARTMENTS 1991 Knee replacement, total LEFT ARTHRP KNE CONDYLEANDPLATU MEDIALANDLAT COMPARTMENTS 2006 PARTIAL KNEE REPLACEMENT RIGHT CC CORONARY STENT 02/2010 x2 COLONOSCOPY AND POLYPECTOMY 01/14/02 repeat 2011 FNA WITH IMAGING 08/21/12 U/S FNA right thyroid lesion ALLERGIES Coconut MEDICATIONS Current Outpatient Medications Medication Sig atorvastatin (LIPITOR) 20 mg tablet Take 1 tablet by mouth once daily. lisinopril (ZESTRIL) 5 mg tablet Take 1 tablet by mouth once daily. levothyroxine (SYNTHROID) 112 mcg tablet Take 1 tablet by mouth once daily. aspirin, enteric coated (ASPIRIN, ENTERIC COATED) 81 mg EC tablet Take 1 tablet by mouth once daily. nitroglycerin sublingual (NITROQUICK) 0.4 mg SL tablet Dissolve 1 tablet under the tongue every 5 minutes as needed for chest pain, up to 3 doses. If no relief, call 911. No current facility-administered medications for this visit. FAMILY HISTORY Problem Relation Age of Onset Cancer Mother LYMPHATIC Heart Father IA Emphysema Father smoker/welder shielded metal arc Cancer Maternal Grandmother Social History Tobacco Use Smoking status: Former Packs/day: 1.00 Years: 25.00 Additional pack years: 0.00 Total pack years: 25.00 Types: Cigarettes Quit date: 11/24/1989 Years since quittin.5 Smokeless tobacco: Never Vaping Use Vaping Use: Never used Substance Use Topics Alcohol use: Yes Alcohol/week: 1.0 standard drink of alcohol Types: 1 Cans of Beer (12oz) per week Drug use: No REVIEW OF SYSTEMS GENERAL: No weight loss, malaise or fevers/chills HEENT: Negative for frequent or significant headaches, No changes in vision. Decreased hearing. NECK: Negative for lumps, goiter, pain and significant neck swelling RESPIRATORY: Rarely cough, no wheezing, dyspnea or shortness of breath CARDIOVASCULAR: Yesterday had chest pain- sitting watching TV- self limiting for a couple minutes- resolved spontaneously, no leg swelling, no orthopnea, no palpitations GI: + nausea, no vomiting, + diarrhea/constipation. No hematochezia/melena. No heartburn or reflux symptoms. : No history of dysuria, frequency or incontinence EXAM: BP 140/60 Pulse (!) 47 Wt 87.1 kg (192 lb) SpO2 97% BMI 27.55 kg/m? PHYSICAL EXAM: Physical Exam Vitals reviewed. Constitutional: Appearance: Normal appearance. HENT: Head: Normocephalic. Cardiovascular: Rate and Rhythm: Normal rate and regular rhythm. Heart sounds: Normal heart sounds. No murmur heard. No gallop. Pulmonary: Effort: Pulmonary effort is normal. Breath sounds: Normal breath sounds. Abdominal: General: Bowel sounds are normal. Palpations: Abdomen is soft. Neurological: Mental Status: He is alert. LABS: HgA1c reviewed and discussed with pt. ASSESSMENT/PLAN: 1. Controlled type 2 diabetes mellitus without complication, without long-term current use of insulin (HCC) - ICD9: 250.00, ICD10: E11.9 - Controlled - Stop metformin and switch to metformin SA 500 mg daily - Message with symptom update in 1-2 weeks - Follow up in 3 months - Educated on diet and exercise Discussed treatment plan and patient voices understanding. Patient's questions answered appropriately. Medications and potential side effects were discussed and patient voices understanding. Return to the office as scheduled or as needed for worsening/no improvement. Michaela Heart [facility]N.[facility] History of Present illness Narrative* Michaela Heart APRN.SAYRA - 06/02/2024 9:55 AM EDT This is a 79 year old male who presents today with: Patient presents with: Diabetes HISTORY OF PRESENT ILLNESS: Santa Pearl is a 79 year old male. Patient presents with: Diabetes Having a lot of nausea and diarrhea from metformin. Does exercise regularly, walks 1/2 mile daily. Has not experienced any crashes with blood sugar. 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 HYPERLIPIDEMIA NEC/NOS Hyperplasia of prostate Personal history of colonic polyps S/P angioplasty with stent 02/21/2010 x2 Thyroid nodule 08/05/2012 Unspecified hemorrhoids without mention of complication Unspecified hypothyroidism PAST SURGICAL HISTORY Procedure Laterality Date ARTHRP KNE CONDYLE&PLATU MEDIAL&LAT COMPARTMENTS 1990 Knee replacement, total LEFT ARTHRP KNE CONDYLE&PLATU MEDIAL&LAT COMPARTMENTS 2006 PARTIAL KNEE REPLACEMENT RIGHT CC CORONARY STENT 02/2010 x2 COLONOSCOPY & POLYPECTOMY 01/14/02 repeat 2011 FNA WITH IMAGING 08/21/12 U/S FNA right thyroid lesion ALLERGIES [place]ut MEDICATIONS Current Outpatient Medications Medication Sig atorvastatin (LIPITOR) 20 mg tablet Take 1 tablet by mouth once daily. lisinopril (ZESTRIL) 5 mg tablet Take 1 tablet by mouth once daily. levothyroxine (SYNTHROID) 112 mcg tablet Take 1 tablet by mouth once daily. aspirin, enteric coated (ASPIRIN, ENTERIC COATED) 81 mg EC tablet Take 1 tablet by mouth once daily. nitroglycerin sublingual (NITROQUICK) 0.4 mg SL tablet Dissolve 1 tablet under the tongue every 5 minutes as needed for chest pain, up to 3 doses. If no relief, call 911. No current facility-administered medications for this visit. FAMILY HISTORY Problem Relation Age of Onset Cancer Mother LYMPHATIC Heart Father IA Emphysema Father smoker/welder shielded metal arc Cancer Maternal Grandmother Social History Tobacco Use Smoking status: Former Packs/day: 1.00 Years: 25.00 Additional pack years: 0.00 Total pack years: 25.00 Types: Cigarettes Quit date: 11/24/1989 Years since quittin.5 Smokeless tobacco: Never Vaping Use Vaping Use: Never used Substance Use Topics Alcohol use: Yes Alcohol/week: 1.0 standard drink of alcohol Types: 1 Cans of Beer (12oz) per week Drug use: No REVIEW OF SYSTEMS GENERAL: No weight loss, malaise or fevers/chills HEENT: Negative for frequent or significant headaches, No changes in vision. Decreased hearing. NECK: Negative for lumps, goiter, pain and significant neck swelling RESPIRATORY: Rarely cough, no wheezing, dyspnea or shortness of breath CARDIOVASCULAR: Yesterday had chest pain- sitting watching TV- self limiting for a couple minutes- resolved spontaneously, no leg swelling, no orthopnea, no palpitations GI: + nausea, no vomiting, + diarrhea/constipation. No hematochezia/melena. No heartburn or reflux symptoms. : No history of dysuria, frequency or incontinence EXAM: BP 140/60 Pulse (!) 47 Wt 87.1 kg (192 lb) SpO2 97% BMI 27.55 kg/m PHYSICAL EXAM: Physical Exam Vitals reviewed. Constitutional: Appearance: Normal appearance. HENT: Head: Normocephalic. Cardiovascular: Rate and Rhythm: Normal rate and regular rhythm. Heart sounds: Normal heart sounds. No murmur heard. No gallop. Pulmonary: Effort: Pulmonary effort is normal. Breath sounds: Normal breath sounds. Abdominal: General: Bowel sounds are normal. Palpations: Abdomen is soft. Neurological: Mental Status: He is alert. LABS: HgA1c reviewed and discussed with pt. ASSESSMENT/PLAN: 1. Controlled type 2 diabetes mellitus without complication, without long-term current use of insulin (HCC) - ICD9: 250.00, ICD10: E11.9 - Controlled - Stop metformin and switch to metformin SA 500 mg daily - Message with symptom update in 1-2 weeks - Follow up in 3 months - Educated on diet and exercise Discussed treatment plan and patient voices understanding. Patient's questions answered appropriately. Medications and potential side effects were discussed and patient voices understanding. Return to the office as scheduled or as needed for worsening/no improvement. Michaela Heart APRN.SAYRA documented in this encounterOur [facility]07-[facility]24 Telephone encounter Note * Telephone Encounter - Manuela Hernandez MA - 05/29/2024 9:42 AM EDT Pt notified and voiced understanding. Appt made. Manuela Hernandez MA [facility]07-18-2024 Miscellaneous Notes* Telephone Encounter - Manuela Hernandez MA - 05/29/2024 9:42 AM EDT Pt notified and voiced understanding. Appt made. Manuela Hernandez MA * Telephone Encounter - Josue Aguilera MD - 05/29/2024 8:21 AM EDT Thyroid is good. Sugars are now in a diabetic range. Add metformin once a day with one meal. Come in to talk with one of us to discuss further. Can set up with Tisha or Lacey if able. documented in this encounterOur [facility] Of [facility]07-18-2024 Telephone encounter Note * Telephone Encounter - Josue Aguilera MD - 05/29/2024 8:21 AM EDT Thyroid is good. Sugars are now in a diabetic range. Add metformin once a day with one meal. Come in to talk with one of us to discuss further. Can set up with Tisha or Lacey if able. [facility]07-17-[facility] Nurse Note* Ragini Dawn LPN - 05/28/2024 10:07 AM EDT Ambulatory Ear Lavage Pre-treatment: No pre-treatment Treatment: Left ear Equipment and Irrigation solution and Volume used: Single use syringe with single use irrigation tip Return flow appearance: Cloudy Patient tolerated procedure: yes Tympanic membrane assessment: Tympanic membrane assessed by LIP pre and post procedure [facility] Nurse Note* Ragini Dawn LPN - 05/28/2024 10:07 AM EDT Ambulatory Ear Lavage Pre-treatment: No pre-treatment Treatment: Left ear Equipment and Irrigation solution and Volume used: Single use syringe with single use irrigation tip Return flow appearance: Cloudy Patient tolerated procedure: yes Tympanic membrane assessment: Tympanic membrane assessed by LIP pre and post procedure documented in this encounterOur Lady Of [facility]cy [facility]07-17-2024 NoteHNO ID: [id number] Author: JOSUE AGUILERA MD Service: ? Author Type: Physician Type: Progress Notes Filed: 05/28/2024 10:41 Note Text: Patient presents with: 6 Month Exam HPI: Patient presents today for office visit for follow up HTN: Patient is compliant with meds Yes Monitors bp at home: No. Denies side effects: Yes. Chest pain: No. Dyspnea: No. Edema: No. Palpitations: No. Syncope: No. Headache: No. Dizziness: No. Left ear: Every now and then hears his heartbeat in his ear. Also has noticed diminished hearing. Does not wear hearing aids. Concerns with range of motion getting more limited with his age. Dicussed walking and silver sneakers. No falls. HYPERLIPIDEMIA: Patient is taking medications: Yes. Patient is watching diet: Yes. Patient denies myalgias: Yes. Patient denies gi upset: Yes Did not see neuro as recommended. But last ct was ok. No signs of bleed. No headache. No neuro issues. MEDICATIONS: Current Outpatient Medications Medication Sig atorvastatin (LIPITOR) 20 mg tablet Take 1 tablet by mouth once daily. lisinopril (ZESTRIL) 5 mg tablet Take 1 tablet by mouth once daily. levothyroxine (SYNTHROID) 112 mcg tablet Take 1 tablet by mouth once daily. aspirin, enteric coated (ASPIRIN, ENTERIC COATED) 81 mg EC tablet Take 1 tablet by mouth once daily. nitroglycerin sublingual (NITROQUICK) 0.4 mg SL tablet Dissolve 1 tablet under the tongue every 5 minutes as needed for chest pain, up to 3 doses. If no relief, call 911. No current facility-administered medications for this visit. ALLERGIES: ALLERGIES Allergen Reactions Coconut Vomiting Only allergic to shredded coconut, fine with oils. 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 HYPERLIPIDEMIA NEC/NOS Hyperplasia of prostate Personal history of colonic polyps S/P angioplasty with stent 02/21/2010 x2 Thyroid nodule 08/05/2012 Unspecified hemorrhoids without mention of complication Unspecified hypothyroidism PAST SURGICAL HISTORY Procedure Laterality Date ARTHRP KNE CONDYLEANDPLATU MEDIALANDLAT COMPARTMENTS 1990 Knee replacement, total LEFT ARTHRP KNE CONDYLEANDPLATU MEDIALANDLAT COMPARTMENTS 2006 PARTIAL KNEE REPLACEMENT RIGHT CC CORONARY STENT 02/2010 x2 COLONOSCOPY AND POLYPECTOMY 01/14/02 repeat 2011 FNA WITH IMAGING 08/21/12 U/S FNA right thyroid lesion FAMILY HISTORY Problem Relation Age of Onset Cancer Mother LYMPHATIC Heart Father IA Emphysema Father smoker/welder shielded metal arc Cancer Maternal Grandmother Social History Tobacco Use Smoking status: Former Packs/day: 1.00 Years: 25.00 Additional pack years: 0.00 Total pack years: 25.00 Types: Cigarettes Quit date: 11/24/1989 Years since quittin.5 Smokeless tobacco: Never Vaping Use Vaping Use: Never used Substance Use Topics Alcohol use: Yes Alcohol/week: 1.0 standard drink of alcohol Types: 1 Cans of Beer (12oz) per week Drug use: No Reviewed current medications, allergies, past medical history, surgical history, family history and social history today. REVIEW OF SYSTEMS No gi or gu issues. All other reviewed and negative other than HPI. HEALTH MAINTENANCE: Reviewed health maintenance issues today and recommended the following in detail. Advance Directive Discussion due on 11/12/2023 Behavioral Health Screening -Behavioral Health Screening PHQ-2 Score: 0 (Lower risk for depression) DOC-2 Score: 0 (Lower risk for anxiety) Recommendation: no further intervention at this time Colorectal Cancer Screening due on 02/19/2024 BP Controlled (<130/80) due on 03/14/2024 VITALS: BP 130/70 Pulse 65 Wt 86.6 kg (191 lb) SpO2 96% BMI 27.41 kg/m? Last 4 Encounter Wt Readings: Date: Wt: 11/26/2023 88.2 kg (194 lb 6.4 oz) 10/03/2023 87.5 kg (193 lb) 03/14/2023 88.5 kg (195 lb) 01/08/2023 88.9 kg (196 lb) PHYSICAL EXAMINATION: General appearance: Well appearing, alert, in no acute distress, well-hydrated, well nourished. Skin: Skin color, texture, turgor normal, no suspicious rashes or lesions Head: Normocephalic, no masses, lesions, tenderness or abnormalities Eyes: Anicteric sclera. Pupils are equally round and reactive to light. Extraocular movements are intact. Ears: left tm obscured by wax on arrival. Lungs: Lungs clear to auscultation. No wheezing, rhonchi, rales Heart: RRR without murmur, gallop, or rubs. No ectopy Abdomen: Normal abdominal exam, Abdomen soft, non-tender. Bowel sounds normal. No masses, organomegaly Extremities: No deformities, edema, skin discoloration, clubbing or cyanosis. Good capillary refill. Musculoskeletal: No joint swelling, deformity, or tenderness ASSESSMENT/PLAN: 1. S/P right coronary artery (RCA) stent placement - ICD9 (more content not included)...[facility]07-17-2024 History of Present illness Narrative* Josue Aguilera MD - 05/28/2024 9:52 AM EDT Patient presents with: 6 Month Exam HPI: Patient presents today for office visit for follow up HTN: Patient is compliant with meds Yes Monitors bp at home: No. Denies side effects: Yes. Chest pain: No. Dyspnea: No. Edema: No. Palpitations: No. Syncope: No. Headache: No. Dizziness: No. Left ear: Every now and then hears his heartbeat in his ear. Also has noticed diminished hearing. Does not wear hearing aids. Concerns with range of motion getting more limited with his age. Dicussed walking and silver sneakers. No falls. HYPERLIPIDEMIA: Patient is taking medications: Yes. Patient is watching diet: Yes. Patient denies myalgias: Yes. Patient denies gi upset: Yes Did not see neuro as recommended. But last ct was ok. No signs of bleed. No headache. No neuro issues. MEDICATIONS: Current Outpatient Medications Medication Sig atorvastatin (LIPITOR) 20 mg tablet Take 1 tablet by mouth once daily. lisinopril (ZESTRIL) 5 mg tablet Take 1 tablet by mouth once daily. levothyroxine (SYNTHROID) 112 mcg tablet Take 1 tablet by mouth once daily. aspirin, enteric coated (ASPIRIN, ENTERIC COATED) 81 mg EC tablet Take 1 tablet by mouth once daily. nitroglycerin sublingual (NITROQUICK) 0.4 mg SL tablet Dissolve 1 tablet under the tongue every 5 minutes as needed for chest pain, up to 3 doses. If no relief, call 911. No current facility-administered medications for this visit. ALLERGIES: ALLERGIES Allergen Reactions Coconut Vomiting Only allergic to shredded coconut, fine with oils. 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 HYPERLIPIDEMIA NEC/NOS Hyperplasia of prostate Personal history of colonic polyps S/P angioplasty with stent 02/21/2010 x2 Thyroid nodule 08/05/2012 Unspecified hemorrhoids without mention of complication Unspecified hypothyroidism PAST SURGICAL HISTORY Procedure Laterality Date ARTHRP KNE CONDYLE&PLATU MEDIAL&LAT COMPARTMENTS 1990 Knee replacement, total LEFT ARTHRP KNE CONDYLE&PLATU MEDIAL&LAT COMPARTMENTS 2006 PARTIAL KNEE REPLACEMENT RIGHT CC CORONARY STENT 02/2010 x2 COLONOSCOPY & POLYPECTOMY 01/14/02 repeat 2012 FNA WITH IMAGING 08/21/12 U/S FNA right thyroid lesion FAMILY HISTORY Problem Relation Age of Onset Cancer Mother LYMPHATIC Heart Father IA Emphysema Father smoker/welder shielded metal arc Cancer Maternal Grandmother Social History Tobacco Use Smoking status: Former Packs/day: 1.00 Years: 25.00 Additional pack years: 0.00 Total pack years: 25.00 Types: Cigarettes Quit date: 11/24/1989 Years since quittin.5 Smokeless tobacco: Never Vaping Use Vaping Use: Never used Substance Use Topics Alcohol use: Yes Alcohol/week: 1.0 standard drink of alcohol Types: 1 Cans of Beer (12oz) per week Drug use: No Reviewed current medications, allergies, past medical history, surgical history, family history andsocial history today. REVIEW OF SYSTEMS No gi or gu issues. All other reviewed and negative other than HPI. HEALTH MAINTENANCE: Reviewed health maintenance issues today and recommended the following in detail. Advance Directive Discussion due on 11/12/2023 Behavioral Health Screening -Behavioral Health Screening PHQ-2 Score: 0 (Lower risk for depression) DOC-2 Score: 0 (Lower risk for anxiety) Recommendation: no further intervention at this time Colorectal Cancer Screening due on 02/19/2024 BP Controlled (<130/80) due on 03/14/2024 VITALS: BP 130/70 Pulse 65 Wt 86.6 kg (191 lb) SpO2 96% BMI 27.41 kg/m Last 4 Encounter Wt Readings: Date: Wt: 11/26/2023 88.2 kg (194 lb 6.4 oz) 10/03/2023 87.5 kg (193 lb) 03/14/2023 88.5 kg (195 lb) 01/08/2023 88.9 kg (196 lb) PHYSICAL EXAMINATION: General appearance: Well appearing, alert, in no acute distress, well-hydrated, well nourished. Skin: Skin color, texture, turgor normal, no suspicious rashes or lesions Head: Normocephalic, no masses, lesions, tenderness or abnormalities Eyes: Anicteric sclera. Pupils are equally round and reactive to light. Extraocular movements are intact. Ears: left tm obscured by wax on arrival. Lungs: Lungs clear to auscultation. No wheezing, rhonchi, rales Heart: RRR without murmur, gallop, or rubs. No ectopy Abdomen: Normal abdominal exam, Abdomen soft, non-tender. Bowel sounds normal. No masses, organomegaly Extremities: No deformities, edema, skin discoloration, clubbing or cyanosis. Good capillary refill. Musculoskeletal: No joint swelling, deformity, or tenderness ASSESSMENT/PLAN: 1. S/P right coronary artery (RCA) stent placement - ICD9: V45.82, ICD10: Z95.5 (primary diagnosis) - overdue for follow up. - CONSULT TO CARDIOLOGY 2. 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 coronary artery of [place] heart without angina pectoris- ICD9: 414.01, ICD10: I25.10 - CONSULT TO CARDIOLOGY 3. Essential hypertension - ICD9: 401.9, ICD10: I10 - Controlled - Continue current medications 4. Hypothyroidism, unspecified type - ICD9: 244.9, ICD10: E03.9 - check labs. - THYROID STIMULATING HORMONE 5. Dysmetabolic syndrome - ICD9: 277.7, ICD10: E88.810 - HEMOGLOBIN A1C 6. Subarachnoid bleed (HCC) - ICD9: 430, ICD10: I60.9 - doing well. 7. Other hyperlipidemia - ICD9: 272.4, ICD10: E78.49 - stable. 8. Screening for colon cancer - ICD9: V76.51, ICD10: Z12.11 - COLOGUARD 9. Impacted cerumen of left ear - ICD9: 380.4, ICD10: H61.22 - irrigated by MA with warm tap water. Large amount of debris removed with improvement in symptoms.Mild residual wax in ear. Red flags for re-assessment reviewed with patient in detail. Josue Aguilera MD documented [facility] encounter[facility] Miscellaneous Notes* Telephone Encounter - Michaela Vines LPN - 01/18/2024 11:18 AM EST Patient notified. * Telephone Encounter - Josue Aguilera MD - 01/18/2024 11:12 AM EST done * Telephone Encounter - Mable Amado RN - 01/18/2024 11:04 AM EST Patient calling and states 2 of his recent prescriptions were sent to incorrect pharmacy. Asking if PCP can send to correct pharmacy ([facility])? Pended. Please call patient when this has been completed. Thank you. documented in this encounterOur [facility]11-[facility]23 Miscellaneous Notes* Addendum Note - Josue Aguilera MD - 10/04/2023 2:26 PM ESTAddended by: JOSUE AGUILERA on: 10/04/2023 02:26 PM Modules accepted: Orders * Telephone Encounter - Josue Aguilera MD - 10/04/2023 2:24 PM EST Having issues finding pharmacy with meds. [facility] has it. documented in this encounterOur [facility]11-22-2023 Miscellaneous Notes* Telephone Encounter - Josue Aguilera MD - 10/03/2023 9:48 PM EST Attempted to call regarding positive covid. Had discussed antiviral tx with him. Given his plavix he is not a paxlovid candidate however can try molnupirivr. Asked patient to return my call to discuss results. Patient called back. Info given Molnupiravir Eligibility and Patient Discussion [facility] Formul[facility] Restriction Criteria: Adult outpatients 18 years and older with ALL of the following: [x] Patient has symptoms for 5 days or less [x] Not requiring hospitalization at any time for management of COVID-19 [x] Not requiring supplemental oxygen or a change in baseline supplemental oxygen [x] Not utilized for pre-exposure or post-exposure prophylaxis for prevention of COVID-19 [] Patient is not or lactating [x] Meeting at least one of the criteria for high risk of progression to severe COVID-19: [x] Age over 65 years [] Cancer [] Chronic kidney disease [] Chronic liver disease [] Chronic lung diseases, including cystic fibrosis [] Dementia or other neurological conditions [] Diabetes (type 1 or type 2) [] Disabilities, including Down syndrome and neurodevelopmental disorders [] Heart conditions [] HIV infection [] Immunocompromised state [] Mental health conditions [] Medical related technological dependence (tracheostomy, gastrostomy, or positive pressure ventilation (not related to COVID) [] Overweight and obesity (BMI greater or equal to 25 for adults) [] Physical inactivity [] Sickle cell disease or thalassemia [] Smoking, current or former [] Solid organ or blood stem cell transplant [] Stroke or cerebrovascular disease [] Substance use disorders [] Tuberculosis [] People from racial and ethnic minority groups Criteria above are met: Yes Date of Symptom Onset: 10/01 Patient received COVID vaccine: Yes / status reviewed: Females: [] Patient is not currently and there is no possibility the patient could be (select one of the following): [] test does not need to be confirmed in patients who have undergone permanent sterilization, are currently using an intrauterine system or contraceptive implant, or in whom is not possible. [] Patients not meeting conditions above: assess whether the patient is based on the firstday of the last menstrual period in individuals who have regular menstrual cycles, is using reliable method of contraception correctly and consistently or have had a negative test [] A test is recommended if the individual has irregular menstrual cycles, is unsure of the first day of the last menstrual period or is not using effective contraception correctly and consistently [] Patient is not currently . is not recommended during treatment and for four days after final dose of molnupiravir. [] Females have been advised to use a reliable method of contraception correctly and consistently for the duration of treatment and for four days after the last dose of molnupiravir Males: [x] Sexually active male with partner(s) of childbearing potential has been advised to use a reliable method of contraception correctly and consistently for intercourse for the duration of treatment and for three months after the last dose of molnupiravir I have discussed the use of the investigational therapeutic, molnupiravir, for the treatment of mild to moderate COVID-19 and its use under Emergency Use Authorization with the patient. The patient was informed that molnupiravir is not an FDA approved drug and that it is authorized for use under this Emergency Use Authorization. The patient was also informed of the significant knownbenefits and potential risks of molnupiravir, and the extent to which such potential risks and benefits are unknown. The patient was informed that there is mandatory reporting of all medication errors and serious adverse events potentially related to molnupiravir treatment within 7 calendar days from the onset of the event and that events up to 28 days after completion of therapy need to be reported. The discussion included alternatives to receiving molnupiravir, including clinical trials, and potential the risks and benefits of those alternatives. The patient was provided electronically withthe Fact Sheet for Patients, Parents and Caregivers. The patient was also instructed that in addition to the treatment with molnupiravir, he/she should continue to self-isolate and use infection control measures (e.g., wear mask, isolate, social distance, avoid sharing personal items, clean and disinfect high touch surfaces, and frequent handwashing) according to CDC guidelines. The patient stated understanding and gave verbal consent to proceeding with molnupiravir treatment. Josue Aguilera MD October 03, 2023 9:54 PM documented in this encounterOur [facility]11-22-2023 Instructions* Patient Instructions* Josue Aguilera MD - 10/03/2023 9:42 PM EST Images from the original note were not included. FACT SHEET FOR PATIENTS, PARENTS, AND CAREGIVERS EMERGENCY USE AUTHORIZATION (EUA) OF PAXLOVID FOR CORONAVIRUS DISEASE 2019 (COVID-19) You are being given this Fact Sheet because your healthcare provider believes it is necessary to provide you with PAXLOVID for the treatment of htbq-rr-hcgpyyvc coronavirus disease (COVID-19) caused by the SARS-CoV-2 virus. This Fact Sheet contains information to help you understand the risks and benefits of taking the PAXLOVID you may receive. This Fact Sheet also contains information about how t o take PAXLOVID and how to report side effects or problems with the appearance or packaging of PAXLOVID. The [place].S. Food and Drug Administration (FDA) has issued an Emergency Use Authorization (EUA) to makePAXLOVID available for the treatment of jybh-mh-lwehvufj COVID-19 in adults and children 12 years of age and older weighing at least 88 pounds (40 kg) who are at high risk for progression to severe COVID-19, including hospitalization or (for more details about an EUA please see What is an Emergency Use Authorization? at the end of this document). Read this Fact Sheet for information about PAXLOVID. Talk to your healthcare provider about your options or if you have any questions. It is your choice to take PAXLOVID. What is COVID-19? COVID-19 is caused by a virus called a coronavirus. You can get COVID-19 through close contact withanother person who has the virus. COVID-19 illnesses have ranged from very nrxt-zb-aavphl, including illness resulting in . While information so far suggests that most COVID-19 illness is mild, serious illness can happen and maycause some of your other medical conditions to become worse. Older people and people of all ages with severe, long lasting (chronic) medical conditions like heart disease, lung disease, and diabetes,for example seem to be at higher risk of being hospitalized for COVID-19. What is PAXLOVID? PAXLOVID is a medicine that is available under EUA for the treatment of qlkf-bt-udkthoxf COVID-19 in adults and children 12 years of age and older weighing at least 88 pounds (40 kg) who are at high risk for progression to severe COVID-19, including hospitalization or . Although PAXLOVID is FDA- approved for the treatment of COVID-19 in certain adults (see section What other treatment choicesare there?), PAXLOVID use in children remains investigational because it is still being studied. There is limited information about the safety and effectiveness of using PAXLOVID to treat children with tbkm-qu-xhcpuonu COVID-19. What is the most important information I should know about PAXLOVID? PAXLOVID can interact with other medicines causing severe or life-threatening side effects or . It is important to know the medicines that should not be taken with PAXLOVID. Do not take PAXLOVID if: you are taking any of the following medicines: o alfuzosin o amiodarone o apalutamide o carbamazepine o colchicine o dihydroergotamine o dronedarone o eletriptan o eplerenone o ergotamine o finerenone o flecainide o flibanserin o ivabradine o lomitapide o lovastatin o lumacaftor/ivacaftor o lurasidone o methylergonovine o midazolam (oral) o naloxegol o phenobarbital o phenytoin o pimozide o primidone o propafenone o quinidine o ranolazine o rifampin o rifapentine o [place] s Wort (hypericum perforatum) o sildenafil (Revatio ) for pulmonary arterial hypertension o silodosin o simvastatin o tolvaptan o triazolam o ubrogepant o voclosporin These are not the only medicines that may cause serious or life-threatening side effects if taken with PAXLOVID. PAXLOVID may increase or decrease the levels of multiple other medicines. It is very important to tell your healthcare provider about all of the medicines you are taking because additional laboratory tests or changes in the dose of your other medicines may be necessary during treatment with PAXLOVID. Your healthcare provider may also tell you about specific symptoms to watch out for that may indicate that you need to stop or decrease the dose of some of your other medicines. you are allergic to nirmatrelvir, ritonavir, or any of the ingredients in PAXLOVID. See the end of this leaflet for a complete list of ingredients in PAXLOVID. See What are the important possible side effects of PAXLOVID? for signs and symptoms of allergic reactions. What should I tell my healthcare provider before I take PAXLOVID? Tell your healthcare provider if you: have kidney problems. You may need a different dose of PAXLOVID. have liver problems, including hepatitis. have Human Immunodeficiency Virus 1 (HIV-1) infection. PAXLOVID may lead to some HIV-1 medicines not working as well in the future. are or plan to become . It is not known if PAXLOVID can harm your unborn baby. Tell your healthcare provider right away if you are or if you become . are or plan to breastfeed. It is not known if PAXLOVID can pass into your breast milk. Talk to your healthcare provider about the best way to feed your baby during treatment with PAXLOVID. Some medicines may interact with PAXLOVID and may cause serious side effects. Tell your healthcare provider about all the medicines you take, including prescription and pkfm-cbr-hjuhlue medicines, vitamins, and herbal supplements. Your healthcare provider can tell you if it is safe to take PAXLOVID with other medicines. You can ask your healthcare provider or pharmacist for a list of medicines that interact with PAXLOVID. Do not start taking a new medicine without telling your healthcare provider. Tell your healthcare provider if you are taking combined control (hormonal contraceptive). PAXLOVID may affect how your hormonal contraceptives work. Females who are able to become should use another effective alternative form of contraception or an additional barrier method of contraception during treatment with PAXLOVID. Talk to your healthcare provider if you have any questions about contraceptive methods that might be right for you. How do I take PAXLOVID? Take PAXLOVID exactly as your healthcare provider tells you to take it. PAXLOVID consists of 2 medicines: nirmatrelvir tablets and ritonavir tablets. The 2 medicines are taken together 2 times each day for 5 days. Nirmatrelvir is an oval, pink tablet. Ritonavir is a white or off-white tablet. PAXLOVID is available in 2 Dose Packs (see Figures A and B below). Your healthcare provider will prescribe the PAXLOVID Dose Pack that is right for you. If you have kidney disease, your healthcare provider may prescribe a lower dose (see Figure B). Talk to your healthcare provider to make sure you receive the correct Dose Pack. Do not remove your PAXLOVID tablets from the blister card before you are ready to take your dose. Take your first dose of PAXLOVID in the morning or evening, depending on when you mixing picker tender your prescription, or as your healthcare provider tells you to. Swallow the tablets whole. Do not chew, break, or crush the tablets. Take PAXLOVID with or without food. Do not stop taking PAXLOVID without talking to your healthcare provider, even if you feel better. If you miss a dose of PAXLOVID within 8 hours of the time it is usually taken, take it as soon as you remember. If you miss a dose by more than 8 hours, skip the missed dose and take the next dose atyour regular time. Do not take 2 doses of PAXLOVID at the same time. If you take too much PAXLOVID, call your healthcare provider or go to the nearest hospital emergency room right away. If you are taking a ritonavir- or cobicistat-containing medicine to treat hepatitis C or HIV-1 infection, you should continue to take your medicine as prescribed by your healthcare provider. Talk to your healthcare provider if you do not feel better or if you feel worse after 5 days. What are the important possible side effects of PAXLOVID? PAXLOVID may cause serious side effects, including: Allergic reactions, including severe allergic reactions (anaphylaxis) have happened during treatment with PAXLOVID. Stop taking PAXLOVID and get medical help right away if you get any of the following symptoms of an allergic reaction: o skin rash, hives, blisters or peeling skin o painful sores or ulcers in the mouth, nose, throat or genital area o swelling of the mouth, lips, tongue or face o trouble swallowing or breathing o throat tightness o hoarseness Liver Problems. Tell your healthcare provider right away if you get any of the following signs and symptoms of liver problems during treatment with PAXLOVID: o loss of appetite o yellowing of your skin and the white of eyes o dark-colored urine o pale colored stools o itchy skin o stomach-area (abdominal) pain The most common side effects of PAXLOVID include: altered sense of taste and diarrhea. Other possible side effects include: headache vomiting abdominal pain nausea high blood pressure feeling generally unwell These are not all the possible side effects of PAXLOVID. For more information, ask your healthcare provider or pharmacist. What other treatment choices are there? PAXLOVID is FDA-approved for the treatment of bgfn-yj-mfjzpouo COVID-19 in certain adults; however,there are not sufficient quantities of the approved presentations (i.e., dose packs) of PAXLOVID atthis time. This EUA continues to authorize the emergency use of PAXLOVID for the approved patient population to ensure continued access in order to meet the public health need. VEKLURY (remdesivir) is FDA-approved for the treatment of pgwj-nh-hebrxvyj COVID-19 in certain adults and children. Talk with your healthcare provider to see if VEKLURY is appropriate for you. For information on the emergency use of other medicines that are authorized by FDA to treat people with COVID-19, please go to https://www.fda.gov/uphcqnoqo-bezjttkysdpd-zzw-response/pan-bwzks-dckwnoq kna-viu-odpbjs-framework/bouwywfoz-pst-bhrnboqnfhswg. Your healthcare provider may talk with you about clinical trials for which you may be eligible. It is your choice to be treated or not to be treated with PAXLOVID. Should you decide not to receive it or for your child not to receive it, it will not change your standard medical care. What if I am or ? There is limited experience treating women or mothers with PAXLOVID. For a mother and unborn baby, the benefit of taking PAXLOVID may be greater than the risk from the treatment. If you are , discuss your options and specific situation with your healthcare provider. If you are , discuss your options and specific situation with your healthcare provider. How do I report side effects or problems with the appearance or packaging of PAXLOVID? Contact your healthcare provider if you have any side effects that bother you or do not go away. Report side effects or problems with the appearance or packaging of PAXLOVID (see Figures A and B above for examples of PAXLOVID Dose Packs) to FDA MedWatch at www.fda.gov/medwatch or call 9-605-GRA-9148 or you can report side effects to [employer]. at the contact information provided below. How should I store PAXLOVID? Store PAXLOVID tablets at room temperature, between 68?F to 77?F (20?C to 25?C). Keep PAXLOVID and all medicines out of the reach of children. What if I have questions about the expiration date for my PAXLOVID? The FDA has extended the expiration date (shelf-life) for some lots of PAXLOVID. To find the extended expiration date, enter the lot number found on the side of carton or bottom of blister pack at this website: https://www.S[employer]Web[employer]Swipp.Gainspeed/ or talk with your healthcare provider. Information onthe authorized shelf-life extensions for PAXLOVID may also be found at https://www.fda.gov/emergency -jiziqswxbjct-asn-chtkpnuy/ddq-kutlh-ryeqfsfama-eox-kjalse-cpuywzoqu/expiration- dating-extension. How can I learn more about COVID-19? Ask your healthcare provider. Visit https://www.cdc.gov/COVID19. Contact your local or state public health department. What is an Emergency Use Authorization (EUA)? The [place] FDA has made PAXLOVID available under an emergency access mechanism called an Emergency Use Authorization (EUA). The EUA is supported by a Armed Custom Protection Officer of Health and Human Services ([facility]) declaration that circumstances exist to justify the emergency use of drugs and biological products during the COVID-19 pandemic. In issuing an EUA, the FDA has determined, among other things, that based on the total amount of scientific evidence available including data from adequate and well-controlled clinical trials, if available, it is reasonable to believe that the product may be effective for diagnosing, treating, or preventing COVID-19, or a serious or life-threatening disease or condition caused by COVID-19; that the known and potential benefits of the product, when used to diagnose, treat, or prevent such disease or condition, outweigh the known and potential risks of such product; and that there are no adequate, approved, and available alternatives. All of these criteria must be met to allow for the product to be available under an EUA. The EUA for PAXLOVID is in effect for the duration of the COVID-19 declaration justifying emergency use of this product, unless the relevant EUA declaration is terminated or the EUA revoked (after which the products may no longer be used under the EUA). What are the ingredients in PAXLOVID? Active ingredient: nirmatrelvir and ritonavir Nirmatrelvir inactive ingredients: colloidal silicon dioxide, croscarmellose sodium, lactose monohydrate, microcrystalline cellulose, and sodium stearyl fumarate. Film-coating contains: hydroxy propyl methylcellulose, iron oxide red, polyethylene glycol, and titanium dioxide. Ritonavir inactive ingredients: anhydrous dibasic calcium phosphate, colloidal silicon dioxide, copovidone, sodium stearyl fumarate, and sorbitan monolaurate. The film coating may contain: colloidal anhydrous silica, colloidal silicon dioxide, hydroxypropyl cellulose, hypromellose, polyethylene glycol, polysorbate 80, talc, and titanium dioxide. Additional Information For general questions, visit the website or call the telephone number provided below. Website: [email or web address] Telephone number: (0-086-U59-PACK) Distributed by [email or web address] Division [place] [address] [id number] Revised: 03/2023 Fact Sheet for Patients And Caregivers Emergency Use Authorization (EUA) Of LAGEVRIO (molnupiravir) capsules For Coronavirus Disease 2019 (COVID-19) What is the most important information I should know about LAGEVRIO? LAGEVRIO may cause serious side effects, including: LAGEVRIO may cause harm to your unborn baby. It is not known if LAGEVRIO will harm your baby if youtake LAGEVRIO during . LAGEVRIO is not recommended for use in . LAGEVRIO has not been studied in . LAGEVRIO was studied in animals only. When LAGEVRIO was given to animals, LAGEVRIO caused harm to their unborn babies. You and your healthcare provider may decide that you should take LAGEVRIO during if thereare no other COVID-19 treatment options approved or authorized by the FDA that are accessible or clinically appropriate for you. If you and your healthcare provider decide that you should take LAGEVRIO during , you and your healthcare provider should discuss the known and potential benefits and the potential risks of taking LAGEVRIO during . For individuals who are able to become : You should use a reliable method of control (contraception) consistently and correctly duringtreatment with LAGEVRIO and for 4 days after the last dose of LAGEVRIO. Talk to your healthcare provider about reliable control methods. Before starting treatment with LAGEVRIO your healthcare provider may do a test to see if you are before starting treatment with LAGEVRIO. Tell your healthcare provider right away if you become or think you may be duringtreatment with LAGEVRIO. Registry: There is a registry for individuals who take LAGEVRIO during . The purpose of this program is to collect information about the health of you and your baby. If you are or become during treatment with LAGEVRIO, you are encouraged to reportyour use of LAGEVRIO during to this registry at https://covid-pr.[email or web address].Gainspeed or . For individuals who are sexually active with partners who are able to become : It is not known if LAGEVRIO can affect sperm. While the risk is regarded as low, animal studies to fully assess the potential for LAGEVRIO to affect the babies of males treated with LAGEVRIO have notbeen completed. A reliable method of control (contraception) should be used consistently and correctly during treatment with LAGEVRIO and for at least 3 months after the last dose. The risk to sperm beyond 3 months is not known. Studies to understand the risk to sperm beyond 3 months are ongoing. Talk to your healthcare provider about reliable control methods. Talk to your healthcare provider if you have questions or concerns about how LAGEVRIO may affect sperm. You are being given this fact sheet because your healthcare provider believes it is necessary to provide you with LAGEVRIO for the treatment of adults with a current diagnosis of mild-tomoderate coronavirus disease 2019 (COVID-19) who are at high risk for progression to severe COVID-19, including hospitalization or , and for whom other COVID-19 treatment options approved or authorized by theFDA are not accessible or clinically appropriate. The U.S. Food and Drug Administration (FDA) has issued an Emergency Use Authorization (EUA) to makeLAGEVRIO available during the COVID-19 pandemic (for more details about an EUA please see What is an Emergency Use Authorization? at the end of this document). LAGEVRIO is not an FDA-approved medicine in the [place]. Read this Fact Sheet for information about LAGEVRIO. Talk to your healthcareprovider about your options if you have any questions. It is your choice to take LAGEVRIO. What is COVID-19? COVID-19 is caused by a virus called a coronavirus. You can get COVID-19 through close contact withanother person who has the virus. COVID-19 illnesses have ranged from very gsdh-jy-aupspj, including illness resulting in . While information so far suggests that most COVID-19 illness is mild, serious illness can happen and maycause some of your other medical conditions to become worse. Older people and people of all ages with severe, long lasting (chronic) medical conditions like heart disease, lung disease and diabetes, for example seem to be at higher risk of being hospitalized for COVID-19. What is LAGEVRIO? LAGEVRIO is an investigational medicine used to treat adults with a current diagnosis of mild to moderate COVID-19: who are at high risk for progression to severe COVID-19 including hospitalization or , and for whom other COVID-19 treatment options approved or authorized by the FDA are not accessible or clinically appropriate. The FDA has authorized the emergency use of LAGEVRIO for the treatment of mild- tomoderate COVID-19 in adults under an EUA. For more information on EUA, see the What is an Emergency Use Authorization (EUA)? section at the end of this Fact Sheet. LAGEVRIO is not authorized: for use in people less than 18 years of age. for prevention of COVID-19. for people needing hospitalization for COVID-19. for use for longer than 5 consecutive days. What should I tell my healthcare provider before I take LAGEVRIO? Tell your healthcare provider if you: have any allergies are or plan to breastfeed have any serious illnesses Take any medicines including prescription, coni-ypa-fbkaude medicines, vitamins, and herbal products. How do I take LAGEVRIO? Take LAGEVRIO exactly as your healthcare provider tells you to take it. Take 4 capsules of LAGEVRIO every 12 hours (for example, at 8 am and at 8 pm) Take LAGEVRIO for 5 days. It is important that you complete the full 5 days of treatment with LAGEVRIO. Do not stop taking LAGEVRIO before you complete the full 5 days of treatment, even if you feel better. Take LAGEVRIO with or without food. You should stay in isolation for as long as your healthcare provider tells you to. Talk to your healthcare provider if you are not sure about how to properly isolate while you have COVID-19. Swallow LAGEVRIO capsules whole. Do not open, break, or crush the capsules. If you cannot swallow capsules whole, tell your healthcare provider. If your healthcare provider prescribes LAGEVRIO and tells you to take or give a dose through a nasogastric (NG) or orogastric (OG) tube, follow the instructions below: How to take or give a dose of LAGEVRIO through a nasogastric (NG) or orogastric (OG) feeding tube. You must have an NG or OG that is size 12 Slovenian (FR) or larger. If you miss a dose of LAGEVRIO: If it has been less than 10 hours since the missed dose, take it as soon as you remember. If it has been more than 10 hours since the missed dose, skip the missed dose and take your dose atthe next scheduled time. Do not double the dose of LAGEVRIO to make up for a missed dose. How to take or give a dose of LAGEVRIO through a nasogastric (NG) or orogastric (OG) feeding tube: Wash your hands well with soap and water. Gather the supplies you will need to take or give the prescribed dose of LAGEVRIO. 4 LAGEVRIO capsules 1 liquid measuring cup with mL markings to measure 40 mL of room temperature water 1 clean container with a lid 1 catheter tip syringe. Your healthcare provider should tell you what size catheter tip syringe youwill need to take or give a dose of LAGEVRIO. Place the needed supplies on a clean work surface. Follow your healthcare provider s instructions on how to flush the NG or OG feeding tube. Flush theNG or OG feeding tube with 5 mL of water before taking or giving a dose of LAGEVRIO. Carefully open 4 LAGEVRIO capsules, one at a time, and empty the contents into a clean container. Use the liquid measuring cup to measure 40 mL of room temperature water and add to the container containing the capsule contents. Place the lid on the container. Shake to mix the capsule contents and water well for 3 minutes. Thecapsule contents may not dissolve completely. Remove the lid from the container and draw up all the LAGEVRIO and water mixture into a catheter tip syringe. Give all of the mixture right away through the NG or OG feeding tube. Do not keep the mixture for future use. If any capsule contents are left in the container: Add 10 mL of water to the container, and mix to loosen any capsule contents that are left in the container. Use the catheter tip syringe to draw up all of the mixture in the container. Give the mixture through the NG or OG feeding tube. Repeat this process as needed until you no longer see any capsule contents left in the container orcatheter tip syringe. Use the same catheter tip syringe to flush the NG or OG feeding tube 2 times with 5 mL of water (10mL total). Rinse the container, lid and catheter tip syringe well with clean water after use. Place on a cleanpaper towel until next use. What are the important possible side effects of LAGEVRIO? See, What is the most important information I should know about LAGEVRIO? Allergic Reactions. Allergic reactions can happen in people taking LAGEVRIO, even after only 1 dose. Stop taking LAGEVRIO and call your healthcare provider right away if you get any of the following symptoms of an allergic reaction: hives rapid heartbeat trouble swallowing or breathing swelling of the mouth, lips, or face throat tightness hoarseness skin rash The most common side effects of LAGEVRIO are: diarrhea nausea dizziness These are not all the possible side effects of LAGEVRIO. Not many people have taken LAGEVRIO. Serious and unexpected side effects may happen. This medicine is still being studied, so it is possible that all of the risks are not known at this time. What other treatment choices are there? Veklury (remdesivir) is FDA-approved as an intravenous (IV) infusion for the treatment of mildto-moderate COVID-19 in certain adults and children. Talk with your doctor to see if Veklury is appropriate for you. Like LAGEVRIO, FDA may also allow for the emergency use of other medicines to treat people with COVID-19. Go to https://www.fda.gov/yhfwzxdum-lgoaofoqjhji-mda-response/nbq-hwqxcxainkyaicl-rmw- policy-framework/rbgaspwxl-cpe-rksphmyoxlpic for more information. It is your choice to be treated or not to be treated with LAGEVRIO. Should you decide not to take it, it will not change your standard medical care. What if I am ? is not recommended during treatment with LAGEVRIO and for 4 days after the last dose of LAGEVRIO. If you are or plan to breastfeed, talk to your healthcare provider about your options and specific situation before taking LAGEVRIO. How do I report side effects with LAGEVRIO? Contact your healthcare provider if you have any side effects that bother you or do not go away. Report side effects to FDA MedWatch at www.fda.gov/medwatch or call 1-800-fda-1088 (1790.321.4779). How should I store LAGEVRIO? Store LAGEVRIO capsules at room temperature between 68 F to 77 F (20 C to 25 C). Keep LAGEVRIO and all medicines out of the reach of children. How can I learn more about COVID-19? Ask your healthcare provider. Visit www.cdc.gov/COVID19 Contact your local or state public health department. Call [employer] at (toll free in the [place] Visit [email or web address] What Is an Emergency Use Authorization (EUA)? The [place] FDA has made LAGEVRIO available under an emergency access mechanism called an Emergency Use Authorization (EUA) The EUA is supported by a [employer] of Health and Human Service ([facility])declaration that circumstances exist to justify emergency use of drugs and biological products during the COVID-19 pandemic. LAGEVRIO for the treatment of adults with a current diagnosis of ltgd-lx-mlsdubho COVID-19 who are at high risk for progression to severe COVID- 19, including hospitalization or , and for whom alternative COVID-19 treatment options approved or authorized by FDA are not accessible or clinically appropriate, has not undergone the same type of review as an FDAapproved product. In issuing an EUA under the COVID-19 public health emergency, the FDA has determined, among other things, that based on the total amount of scientific evidence available including data from adequate and well-controlledclinical trials, if available, it is reasonable to believe that the product may be effective for diagnosing, treating, or preventing COVID-19, or a serious or life-threatening disease or condition caused by COVID-19; that the known and potential benefits of the product, when used to diagnose, treat, or prevent such disease or condition, outweigh the known and potential risks of such product; and that there are no adequate, approved, and available alternatives. All of these criteria must be met to allow for the product to be used in the treatment of patients during the COVID-19 pandemic. The EUA for LAGEVRIO is in effect for the duration of the COVID-19 declaration justifying emergency use of LAGEVRIO, unless terminated or revoked (after which LAGEVRIO may no longer be used under the EUA). Dianne. for: [employer] [place] [address], [place] For patent information: www.[email or web address]/research/patent Copyright [employer] [place], [place], [place] and its affiliates. All rights reserved. [id number] Revised: December 2022 Fact Sheet for Patients And Caregivers Emergency Use Authorization (EUA) Of LAGEVRIO (molnupiravir) capsules For Coronavirus Disease 2019 (COVID-19) What is the most important information I should know about LAGEVRIO? LAGEVRIO may cause serious side effects, including: LAGEVRIO may cause harm to your unborn baby. It is not known if LAGEVRIO will harm your baby if youtake LAGEVRIO during . LAGEVRIO is not recommended for use in . LAGEVRIO has not been studied in . LAGEVRIO was studied in animals only. When LAGEVRIO was given to animals, LAGEVRIO caused harm to their unborn babies. You and your healthcare provider may decide that you should take LAGEVRIO during if thereare no other COVID-19 treatment options approved or authorized by the FDA that are accessible or clinically appropriate for you. If you and your healthcare provider decide that you should take LAGEVRIO during , you and your healthcare provider should discuss the known and potential benefits and the potential risks of taking LAGEVRIO during . For individuals who are able to become : You should use a reliable method of control (contraception) consistently and correctly duringtreatment with LAGEVRIO and for 4 days after the last dose of LAGEVRIO. Talk to your healthcare provider about reliable control methods. Before starting treatment with LAGEVRIO your healthcare provider may do a test to see if you are before starting treatment with LAGEVRIO. Tell your healthcare provider right away if you become or think you may be duringtreatment with LAGEVRIO. Registry: There is a registry for individuals who take LAGEVRIO during . The purpose of this program is to collect information about the health of you and your baby. If you are or become during treatment with LAGEVRIO, you are encouraged to reportyour use of LAGEVRIO during to this registry at [email or web address] or . For individuals who are sexually active with partners who are able to become : It is not known if LAGEVRIO can affect sperm. While the risk is regarded as low, animal studies to fully assess the potential for LAGEVRIO to affect the babies of males treated with LAGEVRIO have notbeen completed. A reliable method of control (contraception) should be used consistently and correctly during treatment with LAGEVRIO and for at least 3 months after the last dose. The risk to sperm beyond 3 months is not known. Studies to understand the risk to sperm beyond 3 months are ongoing. Talk to your healthcare provider about reliable control methods. Talk to your healthcare provider if you have questions or concerns about how LAGEVRIO may affect sperm. You are being given this fact sheet because your healthcare provider believes it is necessary to provide you with LAGEVRIO for the treatment of adults with a current diagnosis of mild-tomoderate coronavirus disease 2019 (COVID-19) who are at high risk for progression to severe COVID-19, including hospitalization or , and for whom other COVID-19 treatment options approved or authorized by theFDA are not accessible or clinically appropriate. The [place]S. Food and Drug Administration (FDA) has issued an Emergency Use Authorization (EUA) to makeLAGEVRIO available during the COVID-19 pandemic (for more details about an EUA please see What is an Emergency Use Authorization? at the end of this document). LAGEVRIO is not an FDA-approved medicine in the [place]. Read this Fact Sheet for information about LAGEVRIO. Talk to your healthcareprovider about your options if you have any questions. It is your choice to take LAGEVRIO. What is COVID-19? COVID-19 is caused by a virus called a coronavirus. You can get COVID-19 through close contact withanother person who has the virus. COVID-19 illnesses have ranged from very aosg-dr-twvabn, including illness resulting in . While information so far suggests that most COVID-19 illness is mild, serious illness can happen and maycause some of your other medical conditions to become worse. Older people and people of all ages with severe, long lasting (chronic) medical conditions like heart disease, lung disease and diabetes, for example seem to be at higher risk of being hospitalized for COVID-19. What is LAGEVRIO? LAGEVRIO is an investigational medicine used to treat adults with a current diagnosis of mild to moderate COVID-19: who are at high risk for progression to severe COVID-19 including hospitalization or , and for whom other COVID-19 treatment options approved or authorized by the FDA are not accessible or clinically appropriate. The FDA has authorized the emergency use of LAGEVRIO for the treatment of mild- tomoderate COVID-19 in adults under an EUA. For more information on EUA, see the What is an Emergency Use Authorization (EUA)? section at the end of this Fact Sheet. LAGEVRIO is not authorized: for use in people less than 18 years of age. for prevention of COVID-19. for people needing hospitalization for COVID-19. for use for longer than 5 consecutive days. What should I tell my healthcare provider before I take LAGEVRIO? Tell your healthcare provider if you: have any allergies are or plan to breastfeed have any serious illnesses Take any medicines including prescription, ywjr-szk-nfsaumy medicines, vitamins, and herbal products. How do I take LAGEVRIO? Take LAGEVRIO exactly as your healthcare provider tells you to take it. Take 4 capsules of LAGEVRIO every 12 hours (for example, at 8 am and at 8 pm) Take LAGEVRIO for 5 days. It is important that you complete the full 5 days of treatment with LAGEVRIO. Do not stop taking LAGEVRIO before you complete the full 5 days of treatment, even if you feel better. Take LAGEVRIO with or without food. You should stay in isolation for as long as your healthcare provider tells you to. Talk to your healthcare provider if you are not sure about how to properly isolate while you have COVID-19. Swallow LAGEVRIO capsules whole. Do not open, break, or crush the capsules. If you cannot swallow capsules whole, tell your healthcare provider. If your healthcare provider prescribes LAGEVRIO and tells you to take or give a dose through a nasogastric (NG) or orogastric (OG) tube, follow the instructions below: How to take or give a dose of LAGEVRIO through a nasogastric (NG) or orogastric (OG) feeding tube. You must have an NG or OG that is size 12 Slovenian (FR) or larger. If you miss a dose of LAGEVRIO: If it has been less than 10 hours since the missed dose, take it as soon as you remember. If it has been more than 10 hours since the missed dose, skip the missed dose and take your dose atthe next scheduled time. Do not double the dose of LAGEVRIO to make up for a missed dose. How to take or give a dose of LAGEVRIO through a nasogastric (NG) or orogastric (OG) feeding tube: Wash your hands well with soap and water. Gather the supplies you will need to take or give the prescribed dose of LAGEVRIO. 4 LAGEVRIO capsules 1 liquid measuring cup with mL markings to measure 40 mL of room temperature water 1 clean container with a lid 1 catheter tip syringe. Your healthcare provider should tell you what size catheter tip syringe youwill need to take or give a dose of LAGEVRIO. Place the needed supplies on a clean work surface. Follow your healthcare provider s instructions on how to flush the NG or OG feeding tube. Flush theNG or OG feeding tube with 5 mL of water before taking or giving a dose of LAGEVRIO. Carefully open 4 LAGEVRIO capsules, one at a time, and empty the contents into a clean container. Use the liquid measuring cup to measure 40 mL of room temperature water and add to the container containing the capsule contents. Place the lid on the container. Shake to mix the capsule contents and water well for 3 minutes. Thecapsule contents may not dissolve completely. Remove the lid from the container and draw up all the LAGEVRIO and water mixture into a catheter tip syringe. Give all of the mixture right away through the NG or OG feeding tube. Do not keep the mixture for future use. If any capsule contents are left in the container: Add 10 mL of water to the container, and mix to loosen any capsule contents that are left in the container. Use the catheter tip syringe to draw up all of the mixture in the container. Give the mixture through the NG or OG feeding tube. Repeat this process as needed until you no longer see any capsule contents left in the container orcatheter tip syringe. Use the same catheter tip syringe to flush the NG or OG feeding tube 2 times with 5 mL of water (10mL total). Rinse the container, lid and catheter tip syringe well with clean water after use. Place on a cleanpaper towel until next use. What are the important possible side effects of LAGEVRIO? See, What is the most important information I should know about LAGEVRIO? Allergic Reactions. Allergic reactions can happen in people taking LAGEVRIO, even after only 1 dose. Stop taking LAGEVRIO and call your healthcare provider right away if you get any of the following symptoms of an allergic reaction: hives rapid heartbeat trouble swallowing or breathing swelling of the mouth, lips, or face throat tightness hoarseness skin rash The most common side effects of LAGEVRIO are: diarrhea nausea dizziness These are not all the possible side effects of LAGEVRIO. Not many people have taken LAGEVRIO. Serious and unexpected side effects may happen. This medicine is still being studied, so it is possible that all of the risks are not known at this time. What other treatment choices are there? Veklury (remdesivir) is FDA-approved as an intravenous (IV) infusion for the treatment of mildto-moderate COVID-19 in certain adults and children. Talk with your doctor to see if Veklury is appropriate for you. Like LAGEVRIO, FDA may also allow for the emergency use of other medicines to treat people with COVID-19. Go to https://www.fda.gov/ywznzpuou-paloycxcfzna-vtl-response/xcn-efjbxyixisivqcx-fkj- policy-framework/hbphxbpmm-iqs-kvzgqtupqknzq for more information. It is your choice to be treated or not to be treated with LAGEVRIO. Should you decide not to take it, it will not change your standard medical care. What if I am ? is not recommended during treatment with LAGEVRIO and for 4 days after the last dose of LAGEVRIO. If you are or plan to breastfeed, talk to your healthcare provider about your options and specific situation before taking LAGEVRIO. How do I report side effects with LAGEVRIO? Contact your healthcare provider if you have any side effects that bother you or do not go away. Report side effects to FDA MedWatch at www.fda.gov/medwatch or call 1-800-fda-1088 (1651.768.1663). How should I store LAGEVRIO? Store LAGEVRIO capsules at room temperature between 68 F to 77 F (20 C to 25 C). Keep LAGEVRIO and all medicines out of the reach of children. How can I learn more about COVID-19? Ask your healthcare provider. Visit www.cdc.gov/COVID19 Contact your local or state public health department. Call [employer] at (toll free in the [place] Visit [email or web address] What Is an Emergency Use Authorization (EUA)? The [place] FDA has made LAGEVRIO available under an emergency access mechanism called an Emergency Use Authorization (EUA) The EUA is supported by a [place] of Health and Human Service ([facility])declaration that circumstances exist to justify emergency use of drugs and biological products during the COVID-19 pandemic. LAGEVRIO for the treatment of adults with a current diagnosis of bzix-zz-oqazhsnv COVID-19 who are at high risk for progression to severe COVID- 19, including hospitalization or , and for whom alternative COVID-19 treatment options approved or authorized by FDA are not accessible or clinically appropriate, has not undergone the same type of review as an FDAapproved product. In issuing an EUA under the COVID-19 public health emergency, the FDA has determined, among other things, that based on the total amount of scientific evidence available including data from adequate and well-controlledclinical trials, if available, it is reasonable to believe that the product may be effective for diagnosing, treating, or preventing COVID-19, or a serious or life-threatening disease or condition caused by COVID-19; that the known and potential benefits of the product, when used to diagnose, treat, or prevent such disease or condition, outweigh the known and potential risks of such product; and that there are no adequate, approved, and available alternatives. All of these criteria must be met to allow for the product to be used in the treatment of patients during the COVID-19 pandemic. The EUA for LAGEVRIO is in effect for the duration of the COVID-19 declaration justifying emergency use of LAGEVRIO, unless terminated or revoked (after which LAGEVRIO may no longer be used under the EUA). Dianne. for: [employer] [address] For patent information: [email or web address]/research/patent Copyright [employer] [place], [place], [place] and its affiliates. All rights reserved. [id number] Revised: December 2022 documented in this encounterOur [facility]11-22-[facility]23 History of Present illness Narrative* Josue Aguilera MD - 10/03/2023 9:28 AM EST Patient presents with: Hypertension HPI: Patient presents today for office visit for follow up. Says he has a cold. Started 48 hours ago. No fever or chills. No cough. Sneezing. No sore throat. Some stuffiness. No nausea or vomiting or diarrhea. No loss of appetite. Did not do a covid test. HTN: Patient is compliant with meds Yes Monitors bp at home: No. Denies side effects: Yes. Chest pain: No. Dyspnea: No. Edema: No. Palpitations: No. Syncope: No. Headache: No. Dizziness: No. HLD:no myalgias. CAD:still seeing cardiology. Has a spot on his forehead. No changes. Component Latest Ref Rng & Units 10/02/2023 WBC 3.70 - 11.00 k/uL 8.13 RBC 4.20 - 6.00 m/uL 4.38 Hemoglobin 13.0 - 17.0 g/dL 13.9 Hematocrit 39.0 - 51.0 % 43.0 MCV 80.0 - 100.0 fL 98.2 MCH 26.0 - 34.0 pg 31.7 MCHC 30.5 - 36.0 g/dL 32.3 RDW-CV 11.5 - 15.0 % 12.6 Platelet Count 150 - 400 k/uL 253 MPV 9.0 - 12.7 fL 10.8 Neut% % 78.4 Abs Neut (ANC) 1.45 - 7.50 k/uL 6.37 Lymph% % 9.8 Abs Lymph 1.00 - 4.00 k/uL 0.80 (L) [facility]% % 9.5 Abs [facility] <0.87 k/uL 0.77 Eosin% % 1.7 Abs Eosin <0.46 k/uL 0.14 Baso% % 0.2 Abs Baso <0.11 k/uL <0.03 Immature Gran % % 0.4 IMMATURE GRANS (ABS) <0.10 k/uL 0.03 NRBC /100 WBC 0.0 Absolute nRBC <0.01 k/uL <0.01 DTYPE Auto Protein, Total 6.3 - 8.0 g/dL 7.1 Albumin 3.9 - 4.9 g/dL 4.6 Calcium 8.5 - 10.2 mg/dL 9.0 Bilirubin, Total 0.2 - 1.3 mg/dL 1.0 Alkaline Phosphatase 38 - 113 U/L 100 AST 14 - 40 U/L 26 ALT 10 - 54 U/L 25 Glucose 74 - 99 mg/dL 125 (H) BUN 9 - 24 mg/dL 13 Creatinine 0.73 - 1.22 mg/dL 0.74 Sodium 136 - 144 mmol/L 139 Potassium 3.7 - 5.1 mmol/L 4.2 Chloride 97 - 105 mmol/L 101 CO2 22 - 30 mmol/L 26 Anion Gap 9 - 18 mmol/L 12 eGFR >=60 mL/min/1.73m 93 Cholesterol, Total <200 mg/dL 123 Triglyceride <150 mg/dL 60 HDL Cholesterol >39 mg/dL 49 Non HDL Cholesterol <130 mg/dL 74 Fasting Time hrs 14 VLDL Cholesterol <30 mg/dL 12 TC:HDL Ratio <5.10 2.51 LDL Cholesterol <100 mg/dL 62 LDL:HDL Ratio <2.54 1.27 Hemoglobin A1C 4.3 - 5.6 % 6.2 (H) Estimated Average Glucose mg/dL 131 TSH 0.270 - 4.200 mIU/L 2.180 MEDICATIONS: Current Outpatient Medications Medication Sig atorvastatin (LIPITOR) 20 mg tablet Take 1 tablet by mouth once daily. clopidogrel (PLAVIX) 75 mg tablet Take 1 tablet by mouth once daily. lisinopril (ZESTRIL, PRINIVIL) 5 mg tablet Take 1 tablet by mouth once daily. levothyroxine (SYNTHROID) 112 mcg tablet Take 1 tablet by mouth once daily. Aspirin 81 mg Tab Take 1 tablet by mouth once daily. Take with food. nitroglycerin sublingual (NITROQUICK) 0.4 mg SL tablet Dissolve 1 tablet under the tongue every 5 minutes as needed for chest pain, up to 3 doses. If no relief, call 911. No current facility-administered medications for this visit. ALLERGIES: ALLERGIES Allergen Reactions Coconut Vomiting Only allergic to shredded coconut, fine with oils. 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 HYPERLIPIDEMIA NEC/NOS Hyperplasia of prostate Personal history of colonic polyps S/P angioplasty with stent 02/21/2010 x2 Thyroid nodule 08/05/2012 Unspecified hemorrhoids without mention of complication Unspecified hypothyroidism PAST SURGICAL HISTORY Procedure Laterality Date ARTHRP KNE CONDYLE&PLATU MEDIAL&LAT COMPARTMENTS 1990 Knee replacement, total LEFT ARTHRP KNE CONDYLE&PLATU MEDIAL&LAT COMPARTMENTS 2007 PARTIAL KNEE REPLACEMENT RIGHT CC CORONARY STENT 02/2010 x2 COLONOSCOPY & POLYPECTOMY 01/14/02 repeat 2012 FNA WITH IMAGING 08/21/12 U/S FNA right thyroid lesion FAMILY HISTORY Problem Relation Age of Onset Cancer Mother LYMPHATIC Heart Father IA Emphysema Father smoker/welder shielded metal arc Cancer Maternal Grandmother Social History Tobacco Use Smoking status: Former Packs/day: 1.00 Years: 25.00 Additional pack years: 0.00 Total pack years: 25.00 Types: Cigarettes Quit date: 11/24/1989 Years since quittin.8 Smokeless tobacco: Never Vaping Use Vaping Use: Never used Substance Use Topics Alcohol use: Yes Alcohol/week: 1.0 standard drink of alcohol Types: 1 Cans of Beer (12oz) per week Drug use: No Reviewed current medications, allergies, past medical history, surgical history, family history andsocial history today. REVIEW OF SYSTEMS All other reviewed and negative other than HPI. HEALTH MAINTENANCE: Reviewed health maintenance issues today and recommended the following in detail. RSV Vaccine(1 - 1-dose 60+ series) Never done Advance Directive Discussion - his . Depression Assessment due on 11/12/2022 Influenza Vaccine(1) due on 07/13/2023 Covid-19 Vaccine(2022- season) due on 07/13/2023 VITALS: BP 122/82 Pulse 64 Wt 87.5 kg (193 lb) SpO2 98% BMI 27.69 kg/m Last 4 Encounter Wt Readings: Date: Wt: 03/14/2023 88.5 kg (195 lb) 01/08/2023 88.9 kg (196 lb) 09/14/2022 86.2 kg (190 lb) 06/26/2022 87.1 kg (192 lb) PHYSICAL EXAMINATION: General appearance: Well appearing, alert, in no acute distress, well-hydrated, well nourished. Skin: Skin color, texture, turgor normal, no suspicious rashes or lesions Head: Normocephalic, no masses, lesions, tenderness or abnormalities Eyes: Anicteric sclera. Pupils are equally round and reactive to light. Extraocular movements are intact. Ears: External ears normal, canals clear Nose/Sinuses: Nares normal, septum midline, mucosa normal, no drainage or sinus tenderness Oropharynx: Lips, mucosa, and tongue normal, teeth and gums normal, oropharynx normal Neck: Negative findings: no adenopathy Lungs: Lungs clear to auscultation. No wheezing, rhonchi, rales Heart: RRR without murmur, gallop, or rubs. No ectopy Abdomen: Normal abdominal exam, Abdomen soft, non-tender. Bowel sounds normal. No masses, organomegaly Extremities: No deformities, edema, skin discoloration, clubbing or cyanosis. Good capillary refill. Musculoskeletal: No joint swelling, deformity, or tenderness ASSESSMENT/PLAN: 1. Other hyperlipidemia - ICD9: 272.4, ICD10: E78.49 (primary diagnosis) - continue meds. 2. Hypothyroidism, unspecified type - ICD9: 244.9, ICD10: E03.9 - LEVOTHYROXINE 112 MCG TABLET 3. 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 coronary artery of [place] heart without angina pectoris- ICD9: 414.01, ICD10: I25.10 - call if any issues. 4. Essential hypertension - ICD9: 401.9, ICD10: I10 - Controlled - Continue current medications 5. Dysmetabolic syndrome - ICD9: 277.7, ICD10: E88.810 - stable 6. Nodular prostate without urinary obstruction - ICD9: 600.10, ICD10: N40.2 - would not pursue further unless issues. Had discussion with patient regarding risks and benefits of prostate screening. Allowed them to decide if they wished to proceed with screening including SWATHI and PSA. 7. URI, acute - ICD9: 465.9, ICD10: J06.9 - Discussed viral etiology and rationale for treatment. - Symptomatic treatment with prn analgesia - Supportive care with fluids and rest - COVID & INFLUENZA A/B & RSV NAAT, ROUTINE Josue Aguilera RTO in six months and prn. documented in this encounterOur [facility]06-14-2023 History of Present illness Narrative* Joleen Rich MA - 04/25/2023 12:32 PM EDT POPULATION HEALTH NAVIGATION OUTREACH Action/ [employer] Care Gaps 5.30.23 Discuss/Due for: Advance Directives, Follow Up with Josue Aguilera MD Return in about 6 months (around 09/14/2023). Patient over 75, no need to discuss Care Gaps Outcome: Spoke to patient Scheduled Follow Up with Josue Aguilera MD - reminded patient to have existing fasting labs prior to appointment Patient to bring Advance Directives to future appointment Patient Identified by Name and : YES, via phone Outreach Outcome/Action Spoke to patient / parent / legal guardian: Patient scheduled Did you use a PCP flex slot to schedule this appointment? No Reason for Outreach Care Gap or Scheduling/Wellness visits Payer: Payor: T MEDICARE / Plan: AET MEDICARE PPO / Product Type: PPO / Care Gap Reviewed:: Follow-up appointment Reminder: Reminder note to check Health Maintenance for items below Health Maintenance items due: ADVANCE DIRECTIVE DISCUSSION due on 11/12/2022 DEPRESSION ASSESSMENT due on 11/12/2022 Navigation Signature: Joleen Rich MA April 25, 2023 12:32 PM documented in this encounterOur [facility]05-03-2023 History of Present illness Narrative* Josue Aguilera MD - 03/14/2023 10:17 AM EDT Patient presents with: 6 Month Exam HPI: Patient presents today for office visit for follow up. HTN: Does not monitor BP at home Consistent with taking medications daily Denies chest pain and shortness of breath No headaches or dizziness No edema No syncope No palpitations HLD: No myalgias. Good control. Followed by Cardiology. Stress test done 03/12/23. Normal. Continues on Plavix and asa 81 mg. TSH: No energy changes No hair changes Noticed brown spot in middle of forehead that popped up a few years ago. Has not noticed that it's changed in size or color. Not bothersome. Has not seen Derm. MEDICATIONS: Current Outpatient Medications Medication Sig atorvastatin (LIPITOR) 20 mg tablet Take 1 tablet by mouth once daily. clopidogrel (PLAVIX) 75 mg tablet Take 1 tablet by mouth once daily. lisinopril (ZESTRIL, PRINIVIL) 5 mg tablet Take 1 tablet by mouth once daily. levothyroxine (SYNTHROID) 112 mcg tablet Take 1 tablet by mouth once daily. nitroglycerin sublingual (NITROQUICK) 0.4 mg SL tablet Dissolve 1 tablet under the tongue every 5 minutes as needed for chest pain, up to 3 doses. If no relief, call 911. Aspirin 81 mg Tab Take 1 tablet by mouth once daily. Take with food. No current facility-administered medications for this visit. ALLERGIES: ALLERGIES Allergen Reactions Coconut Vomiting Only allergic to shredded coconut, fine with oils. 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 HYPERLIPIDEMIA NEC/NOS Hyperplasia of prostate Personal history of colonic polyps S/P angioplasty with stent 02/21/2010 x2 Thyroid nodule 08/05/2012 Unspecified hemorrhoids without mention of complication Unspecified hypothyroidism PAST SURGICAL HISTORY Procedure Laterality Date ARTHRP KNE CONDYLE&PLATU MEDIAL&LAT COMPARTMENTS 1990 Knee replacement, total LEFT ARTHRP KNE CONDYLE&PLATU MEDIAL&LAT COMPARTMENTS 2006 PARTIAL KNEE REPLACEMENT RIGHT CC CORONARY STENT 02/2010 x2 COLONOSCOPY & POLYPECTOMY 01/14/02 repeat 2011 FNA WITH IMAGING 08/21/12 U/S FNA right thyroid lesion FAMILY HISTORY Problem Relation Age of Onset Cancer Mother LYMPHATIC Heart Father IA Emphysema Father smoker/welder shielded metal arc Cancer Maternal Grandmother Social History Tobacco Use Smoking status: Former Packs/day: 1.00 Years: 25.00 Pack years: 25.00 Types: Cigarettes Quit date: 11/24/1989 Years since quittin.3 Smokeless tobacco: Never Vaping Use Vaping Use: Never used Substance Use Topics Alcohol use: Yes Alcohol/week: 1.0 standard drink Types: 1 Cans of Beer (12oz) per week Drug use: No Reviewed current medications, allergies, past medical history, surgical history, family history andsocial history today. REVIEW OF SYSTEMS Back still stiff on getting up but the pain he had last time in his back is better. All other reviewed and negative other than HPI. HEALTH MAINTENANCE: Reviewed health maintenance issues today VITALS: BP 100/64 Pulse (!) 51 Ht 177.8 cm (5' 10) Wt 88.5 kg (195 lb) SpO2 97% BMI 27.98 kg/m Last 4 Encounter Wt Readings: Date: Wt: 01/08/2023 88.9 kg (196 lb) 09/14/2022 86.2 kg (190 lb) 06/26/2022 87.1 kg (192 lb) 03/13/2022 88.9 kg (196 lb) PHYSICAL EXAMINATION: General appearance: Well appearing, alert, in no acute distress, well-hydrated, well nourished. Skin: Skin color, texture, turgor normal, no suspicious rashes or lesions Head: Normocephalic, no masses, lesions, tenderness or abnormalities Neck: Supple, no adenopathy; thyroid symmetric, normal size, no bruits Lungs: Lungs clear to auscultation. No wheezing, rhonchi, rales Heart: RRR without murmur, gallop, or rubs. No ectopy Abdomen: Normal abdominal exam, Abdomen soft, non-tender. Bowel sounds normal. No masses, organomegaly Extremities: No deformities, edema, skin discoloration, clubbing or cyanosis. Good capillary refill. ASSESSMENT/PLAN: 1. 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 coronary artery of [place] heart without angina pectoris- ICD9: 414.01, ICD10: I25.10 (primary diagnosis) - stable. Per cardiology 2. Essential hypertension - ICD9: 401.9, ICD10: I10 - good control - Continue current medication(s) - Goal of BP <130/80 - LIPID PANEL BASIC - CBC + DIFF - COMP METABOLIC PANEL 3. Hypothyroidism, unspecified type - ICD9: 244.9, ICD10: E03.9 - follow progress. - TSH BLD 4. Hyperglycemia - ICD9: 790.29, ICD10: R73.9 - follow labs. - HGB A1C - HGB A1C Josue Aguilera MD documented in this encounterOur [facility]02-27-2023 Instructions* Patient Instructions* Son Banks MD - 01/08/2023 10:09 AM EST We are scheduling you for a stress test You cannot have caffeine for 36 hours prior to your stress. documented in this encounterOur [facility] Of [facility]02-27-2023 Miscellaneous Notes* Telephone Encounter - Noa Neema - 01/08/2023 10:01 AM EST Patient phones requesting refills as follows: Requested Prescriptions Pending Prescriptions Disp Refills levothyroxine (SYNTHROID) 112 mcg tablet 90 tablet 1 Sig: Take 1 tablet by mouth once daily. Please review and advise. Noa Neema documented in this encounterOur Lady Of Mer[facility]02-27-2023 History of Present illness Narrative* Son Banks MD - 01/08/2023 10:00 AM EST Images from the original note were not included. [facility] SE[facility] CARDIOLOGY Cardiology ([facility]) [address] [facility] [id number] OUTPATIENT VISIT DATE 01/08/2023 PRIMARY CARE PHYSICIAN: Josue Aguilera [address] [place] [address] HISTORY OF PRESENT ILLNESS: Mr. Pearl is a 77 year old gentleman with a history of coronary artery disease and remote coronaryintervention in 2009, hypertension, dyslipidemia who is here for follow-up. He was admitted to [facility] in the fall with an episode of chest pain. No stress test or echocardiogram was performed. Since hospital discharge she has been doing well. He denies recurrent symptoms of chest pain or pressure. He has not had symptoms concerning for CHF including PND, orthopnea, or lower extremity edema. 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 He has not had symptoms of palpitations or heart racing. PAST CARDIAC HISTORY: From last OV with Maxi ZhaoDO 11/19/19: HISTORY OF PRESENT ILLNESS: Mr. Pearl is a 74 year old male. The patient returns for follow-up secondary history of chronic bradycardia and coronary artery disease status post stenting to the LAD and RCA in 2009. He has additional history of hypertension, hyperlipidemia and hypothyroidism. He denies chest discomfort, dyspnea, orthopnea, paroxysmal nocturnal dyspnea, palpitations, near-syncope or syncope. He is active and tries to exercise every day. PLAN AND RECOMMENDATIONS: The patient remained stable without symptoms of angina or cardiac decompensation. He has no signs of degenerative or progressive conduction system disease. We discussed those to look out for. His heart rate, blood pressure and cholesterol all appear well treated. We have made no additions or changes. We would continue his dual antiplatelet therapy given his dual stenting and degeneration of his stents. We will look forward to reevaluating him in one year. We reaffirmed the need for continued dietary and lifestyle modification to facilitate risk factor reduction. The patient however was congratulated on his heart healthy lifestyle that he tries to pursue. 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 HYPERLIPIDEMIA NEC/NOS Hyperplasia of prostate Personal history of colonic polyps S/P angioplasty with stent 02/21/2010 x2 Thyroid nodule 08/05/2012 Unspecified hemorrhoids without mention of complication Unspecified hypothyroidism PAST SURGICAL HISTORY Procedure Laterality Date ARTHRP KNE CONDYLE&PLATU MEDIAL&LAT COMPARTMENTS 1991 Knee replacement, total LEFT ARTHRP KNE CONDYLE&PLATU MEDIAL&LAT COMPARTMENTS 2006 PARTIAL KNEE REPLACEMENT RIGHT CC CORONARY STENT 02/2010 x2 COLONOSCOPY & POLYPECTOMY 01/14/02 repeat 2012 FNA WITH IMAGING 08/21/12 U/S FNA right thyroid lesion SOCIAL HISTORY Social History Tobacco Use Smoking status: Former Packs/day: 1.00 Years: 25.00 Pack years: 25.00 Types: Cigarettes Quit date: 11/24/1989 Years since quittin.1 Smokeless tobacco: Never Vaping Use Vaping Use: Never used Substance Use Topics Alcohol use: Yes Alcohol/week: 1.0 standard drink Types: 1 Cans of Beer (12oz) per week Drug use: No FAMILY HISTORY Problem Relation Age of Onset Cancer Mother LYMPHATIC Heart Father IA Emphysema Father smoker/welder shielded metal arc Cancer Maternal Grandmother ALLERGIES: ALLERGIES Allergen Reactions Coconut Vomiting Only allergic to shredded coconut, fine with oils. MEDICATIONS: atorvastatin (LIPITOR) 20 mg tablet Take 1 tablet by mouth once daily. levothyroxine (SYNTHROID) 112 mcg tablet Take 1 tablet by mouth once daily. clopidogrel (PLAVIX) 75 mg tablet Take 1 tablet by mouth once daily. lisinopril (ZESTRIL, PRINIVIL) 5 mg tablet Take 1 tablet by mouth once daily. nitroglycerin sublingual (NITROQUICK) 0.4 mg SL tablet Dissolve 1 tablet under the tongue every 5 minutes as needed for chest pain, up to 3 doses. If no relief, call 911. Aspirin 81 mg Tab Take 1 tablet by mouth once daily. Take with food. REVIEW OF SYSTEMS: Review of Systems Constitutional: Negative for chills, fever, malaise/fatigue and weight loss. HENT: Negative for hearing loss and sore throat. Eyes: Negative for blurred vision and double vision. Respiratory: Negative. Cardiovascular: Negative. Genitourinary: Negative for dysuria, frequency, hematuria and urgency. Musculoskeletal: Negative. Skin: Negative. Neurological: Negative for dizziness, seizures, loss of consciousness, weakness and headaches. Endo/Heme/Allergies: Negative for environmental allergies. Does not bruise/bleed easily. Psychiatric/Behavioral: Negative for depression. PHYSICAL EXAMINATION: There were no vitals taken for this visit. General: Pleasant gentleman sitting appears comfortable no apparent distress. He is alert and oriented x3 HEENT: Carotid upstrokes are brisk without bruits no JVD appreciated. Pulmonary: Lungs are clear no rales, wheezes, or rhonchi. Cardiovascular: Normal S1, S2 with regular rate and rhythm. No murmurs, rubs, or gallops Extremities: Warm, well-perfused, no lower extremity edema. 2+ distal pulses. CARDIOVASCULAR MEDICINE TESTING: ECG in the office 08/08/2021: Normal sinus rhythm with normal axis and intervals. No significant ST or T wave changes Cardiac Catheterization/PCI 02/14/10: Left Main Angiographically free of disease. LAD: A 90% stenosis was seen in a large Mid LAD. It was characterized asa class C (Complex) lesion. Circumflex: Stenosis of greater than or equal to 50% noted for this vessel. RCA: A 90% stenosis was seen in a medium Proximal RCA. It was characterized as a class B2 (Complex)lesion. 1) Target - 90% mid LAD stenosis A Prowater coronary wire was advanced into the distal LAD. The lesion in the mid LAD was dilated with a 3.0 x 15 mm NC Voyager balloon and stented with a 3.5 x 23 mm Xience V HERB. IVUS evaluation demonstrated excellent stent position and sizing. We post-dilated the stent with a 4.0 x 15 mm NC Voyager balloon. Final IVUS evaluation demonstrated excellent stent position, sizing and apposition. Distal to the stented segment there was an area of moderate diffuse disease as confirmed by IVUS (minimal CSA 5.1 mm2). 2) Target - 90% proximal stenosis in the non-dominant RCA A P[place]ater coronary wire was advanced into the RV marginal branch. The lesion in the proximal RCA was dilated with 2.25 x 12 mm Voyager and 2.5 x 12 mm NC Voyager balloons and then stented with a 2.5 x 12 mm Xience IMPRESSION: Mr. Pearl is a 77 year old gentleman with a history of coronary artery disease and remote coronarystenting of the LAD and RCA in February 2010. Prior to his cardiac catheterization he had presented with sudden onset of fatigue. He did not have symptoms of chest pain or pressure. From his history it sounds like he had presented with unstable angina and non-ST elevation myocardial infarction. He is also treated for hypertension and dyslipidemia. Patient presents office for routine follow-up. PLAN AND RECOMMENDATIONS: 1. 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 coronary artery of [place] heart without angina pectoris- ICD9: 414.01, ICD10: I25.10 (primary diagnosis) Patient with an episode of atypical chest pain that occurred in the fall. He was seen at outside hospital and ruled out for an acute coronary syndrome. He has not had a recent ischemic evaluation. Due to his bradycardia he is unlikely to obtain heart rate on a treadmill stress test. I have scheduled him for a pharmacological stress. - CLOPIDOGREL 75 MG TABLET - LISINOPRIL 5 MG TABLET - NM CARDIAC PERF STRESS/PHARM 2. Essential hypertension - ICD9: 401.9, ICD10: I10 Well-controlled on current regimen. - LISINOPRIL 5 MG TABLET 3. Other hyperlipidemia - ICD9: 272.4, ICD10: E78.49 Maintained on Lipitor 20 mg daily. Blood work from September 2022 was reviewed. LDL cholesterol 69 mg/dL. - ATORVASTATIN 20 MG TABLET Son Banks MD documented in this encounterOur [facility] Of [facility]12-07-2022 Miscellaneous Notes* Telephone Encounter - Jasmine Duque Ma - 10/18/2022 11:59 AM EST Patient last visit with PCP 09/14/22 Follow up appointment scheduled 03/14/23 Jasmine Duque Ma documented in this encounterOur Lady Of [facility]11-03-2022 History of Past illness Narrative* Problem Noted Date Diagnosed Date Resolved Date History of hypothyroidism 09/14/2022 Flank pain 02/21/2010 12/19/2016 Coronary artery disease invo lving [place] coronary artery of [place] heart without angina pectoris 02/21/2010 03/13/2022 S/P angioplasty with stent 02/21/2010 0 12/19/2016 Hypothyroid 02/12/2010 02/21/2010 Overview: On synthroid NSTEMI (non-ST elevated myoc ardial infarction) 02/12/2010 12/19/2016 Overview: On ACS protocol: ASA, Plavix, Atorvstatin, Heparin and NTG gtt. Minimal enzyme leak. Recheck third set. LHC+/- PCI Sunday unless rising enzymes/ ongoing chest pain today. Sinus bradycardia 02/12/2010 02/21/2010 Overview: Asympotmatic SUMMARY 02/11/2010 02/21/2010 Overview: 65 M pmx hypothyroidism, bronchitis, ex smoker quit 20 yrs ago with CP transferred to OSH for NSTEMI Chest pain 07/13/2009 02/21/2010 Overview: ACS protocol: on Nitroglycerin, ASA, Plavix, Atorvastatin, heparin gtt Will follow CE EKG sinus Sebastian will hold off on BB BP low 90s will hold off on ACEI Elevated blood pressure read ing without diagnosis of hypertension 06/03/2009 11/19/2019 Other seborrheic keratosis 12/08/2008 0 12/19/2016 Routine general medical exam ination at a health care facility 07/17/2007 06/14/2016 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 12/19/2016 Herpes zoster without mention of complication 05/03/20 07 12/19/2016 Pain in joint, lower leg 01/08/200705/2017 documented as of this encounter (statuses as of 10/03/2023) [facility] History of Past illness Narrative* Problem Noted Date Diagnosed Date Resolved Date History of hypothyroidism 09/14/2022 Flank pain 02/21/2010 12/19/2016 Coronary artery disease invo lving [place] coronary artery of [place] heart without angina pectoris 02/21/2010 03/13/2022 S/P angioplasty with stent 02/21/2010 0 12/19/2016 Hypothyroid 02/12/2010 02/21/2010 Overview: On synthroid NSTEMI (non-ST elevated myoc ardial infarction) 02/12/2010 12/19/2016 Overview: On ACS protocol: ASA, Plavix, Atorvstatin, Heparin and NTG gtt. Minimal enzyme leak. Recheck third set. LHC+/- PCI Sunday unless rising enzymes/ ongoing chest pain today. Sinus bradycardia 02/12/2010 02/21/2010 Overview: Asympotmatic SUMMARY 02/11/2010 02/21/2010 Overview: 65 M pmx hypothyroidism, bronchitis, ex smoker quit 20 yrs ago with CP transferred to OSH for NSTEMI Chest pain 07/13/2009 02/21/2010 Overview: ACS protocol: on Nitroglycerin, ASA, Plavix, Atorvastatin, heparin gtt Will follow CE EKG sinus Sebastian will hold off on BB BP low 90s will hold off on ACEI Elevated blood pressure read ing without diagnosis of hypertension 06/03/2009 11/19/2019 Other seborrheic keratosis 12/08/2008 0 12/19/2016 Routine general medical exam ination at a health care facility 07/17/2007 06/14/2016 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 12/19/2016 Herpes zoster without mention of complication 05/03/20 07 12/19/2016 Pain in joint, lower leg 01/08/200705/2017 documented as of this encounter (statuses as of 10/04/2023) [facility]-03-[facility] History of Past illness Narrative* Problem Noted Date Diagnosed Date Resolved Date History of hypothyroidism 09/14/2022 Flank pain 02/21/2010 12/19/2016 Coronary artery disease invo lving [place] coronary artery of [place] heart without angina pectoris 02/21/2010 03/13/2022 S/P angioplasty with stent 02/21/2010 0 12/19/2016 Hypothyroid 02/12/2010 02/21/2010 Overview: On synthroid NSTEMI (non-ST elevated myoc ardial infarction) 02/12/2010 12/19/2016 Overview: On ACS protocol: ASA, Plavix, Atorvstatin, Heparin and NTG gtt. Minimal enzyme leak. Recheck third set. LHC+/- PCI Sunday unless rising enzymes/ ongoing chest pain today. Sinus bradycardia 02/12/2010 02/21/2010 Overview: Asympotmatic SUMMARY 02/11/2010 02/21/2010 Overview: 65 M pmx hypothyroidism, bronchitis, ex smoker quit 20 yrs ago with CP transferred to OSH for NSTEMI Chest pain 07/13/2009 02/21/2010 Overview: ACS protocol: on Nitroglycerin, ASA, Plavix, Atorvastatin, heparin gtt Will follow CE EKG sinus Sebastian will hold off on BB BP low 90s will hold off on ACEI Elevated blood pressure read ing without diagnosis of hypertension 06/03/2009 11/19/2019 Other seborrheic keratosis 12/08/2008 0 12/19/2016 Routine general medical exam ination at a health care facility 07/17/2007 06/14/2016 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 12/19/2016 Herpes zoster without mention of complication 05/03/20 07 12/19/2016 Pain in joint, lower leg 01/08/200705/2017 documented as of this encounter (statuses as of 10/04/2023) [facility] History of Past illness Narrative* Problem Noted Date Diagnosed Date Resolved Date History of hypothyroidism 09/14/2022 Flank pain 02/21/2010 12/19/2016 Coronary artery disease invo lving [place] coronary artery of [place] heart without angina pectoris 02/21/2010 03/13/2022 S/P angioplasty with stent 02/21/2010 0 12/19/2016 Hypothyroid 02/12/2010 02/21/2010 Overview: On synthroid NSTEMI (non-ST elevated myoc ardial infarction) 02/12/2010 12/19/2016 Overview: On ACS protocol: ASA, Plavix, Atorvstatin, Heparin and NTG gtt. Minimal enzyme leak. Recheck third set. LHC+/- PCI Sunday unless rising enzymes/ ongoing chest pain today. Sinus bradycardia 02/12/2010 02/21/2010 Overview: Asympotmatic SUMMARY 02/11/2010 02/21/2010 Overview: 65 M pmx hypothyroidism, bronchitis, ex smoker quit 20 yrs ago with CP transferred to OSH for NSTEMI Chest pain 07/13/2009 02/21/2010 Overview: ACS protocol: on Nitroglycerin, ASA, Plavix, Atorvastatin, heparin gtt Will follow CE EKG sinus Sebastian will hold off on BB BP low 90s will hold off on ACEI Elevated blood pressure read ing without diagnosis of hypertension 06/03/2009 11/19/2019 Other seborrheic keratosis 12/08/2008 0 12/19/2016 Routine general medical exam ination at a health care facility 07/17/2007 06/14/2016 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 FALL SCREENING: Has the patient had 2 falls in the last year or 1 fall with injury or currently using an Ambulatory Assistive Device (Walker, Cane, Wheelchair, Crutches, etc.)? No PATIENT GENDER DATA: Male PATIENT RELEVANT IMPLANT DATA REVIEWED: Yes RADIOLOGY DEPARTMENT: General X-ray: Exam(s) Completed: Spine X-Ray(s): Lumbar AP / LAT / L5-S1 PERIPHERAL IV DATA: Not applicable SIGNED BY: RT Mich(R) September 14, 2022 9:27 AM documented in this encounterOur [facility] History of Present illness Narrative* Josue Aguilera MD - 09/14/2022 8:40 AM EDT Patient presents with: 6 Month Exam HPI: Patient presents today for office visit for 6 month follow up. HYPOTHYROID: Patient is compliant with medications: Yes. Taking Levothyroxine 112 mcg daily. Patient has changes in energy: No Patient has changes in hair or skin: No Patient has temperature intolerance: No Patient has weight changes: No HYPERLIPIDEMIA: Patient is taking medications: Yes. Taking Atorvastatin 20 mg daily. Patient is watching diet: Yes. Balanced diet but doesn't restrict. Exercises/Walks. Patient denies myalgias: Yes. Patient denies gi upset: Yes HTN: Patient is compliant with meds Yes. Taking Lisinopril 5 mg daily. Monitors bp at home: No. Denies side effects: Yes. Chest pain: No. Dyspnea: No. Edema: No. Palpitations: No. Syncope: No. Headache: No. Dizziness: No. CAD: Was in ER on 06/20/22 for chest pains. Used his Nitro. Cleared. Sees Dr. Banks. Last OV 06/26/22 with Dana Isaac. Encouraged dietary sodium restriction/DASH diet. Recommend home blood pressuremonitoring. Admits to not checking BP at home currently. Has a mild scratchy throat for several days. No fever or chills. No cough. No shortness of breath. Declines covid testing. Had some lower right back pain. Was using tylenol regularly. Still bothers him a little. Has been there for months. No urinary symptoms. Moving certain ways makes it worse. No issues with numbness or weakness. No issues with bowel or bladder. Has a mole on his forehead. No changes. Just wants to make sure is ok. MEDICATIONS: Current Outpatient Medications Medication Sig atorvastatin (LIPITOR) 20 mg tablet Take 1 tablet by mouth once daily. levothyroxine (SYNTHROID) 112 mcg tablet Take 1 tablet by mouth once daily. clopidogrel (PLAVIX) 75 mg tablet Take 1 tablet by mouth once daily. lisinopril (ZESTRIL, PRINIVIL) 5 mg tablet Take 1 tablet by mouth once daily. nitroglycerin sublingual (NITROQUICK) 0.4 mg SL tablet Dissolve 1 tablet under the tongue every 5 minutes as needed for chest pain, up to 3 doses. If no relief, call 911. Aspirin 81 mg Tab Take 1 tablet by mouth once daily. Take with food. No current facility-administered medications for this visit. ALLERGIES: ALLERGIES Allergen Reactions Coconut Vomiting Only allergic to shredded coconut, fine with oils. 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 HYPERLIPIDEMIA NEC/NOS Hyperplasia of prostate Personal history of colonic polyps S/P angioplasty with stent 02/21/2010 x2 Thyroid nodule 08/05/2012 Unspecified hemorrhoids without mention of complication Unspecified hypothyroidism PAST SURGICAL HISTORY Procedure Laterality Date ARTHRP KNE CONDYLE&PLATU MEDIAL&LAT COMPARTMENTS 1990 Knee replacement, total LEFT ARTHRP KNE CONDYLE&PLATU MEDIAL&LAT COMPARTMENTS 2006 PARTIAL KNEE REPLACEMENT RIGHT CC CORONARY STENT 02/2010 x2 COLONOSCOPY & POLYPECTOMY 01/14/02 repeat 2012 FNA WITH IMAGING 08/21/12 U/S FNA right thyroid lesion FAMILY HISTORY Problem Relation Age of Onset Cancer Mother LYMPHATIC Heart Father IA Emphysema Father smoker/welder shielded metal arc Cancer Maternal Grandmother Social History Tobacco Use Smoking status: Former Packs/day: 1.00 Years: 25.00 Pack years: 25.00 Types: Cigarettes Quit date: 11/24/1989 Years since quittin.8 Smokeless tobacco: Never Vaping Use Vaping Use: Never used Substance Use Topics Alcohol use: Yes Alcohol/week: 1.0 standard drink Types: 1 Cans of Beer (12oz) per week Drug use: No Reviewed current medications, allergies, past medical history, surgical history, family history andsocial history today. REVIEW OF SYSTEMS GI: Negative for change in bowel habit : Negative All other reviewed and negative other than HPI. HEALTH MAINTENANCE: Reviewed health maintenance issues today and recommended the following in detail. SHINGRIX VACCINE(1 of 2) Never done DTAP,TDAP,TD(2 - Td or Tdap) due on 07/09/2016 DEPRESSION ASSESSMENT Never done COVID-19 VACCINE(5 - Booster for Pfizer series) due on 05/04/2022 INFLUENZA(1) due on 07/13/2022 LDL CHOLESTEROL due on 09/12/2022 VITALS: BP 138/70 Pulse 61 Ht 177.8 cm (5' 10) Wt 86.2 kg (190 lb) SpO2 99% BMI 27.26 kg/m Last 4 Encounter Wt Readings: Date: Wt: 06/26/2022 87.1 kg (192 lb) 03/13/2022 88.9 kg (196 lb) 09/12/2021 87.5 kg (193 lb) 08/08/2021 88 kg (194 lb) PHYSICAL EXAMINATION: General appearance: Well appearing, alert, in no acute distress, well-hydrated, well nourished. Skin: seborrheic keratosis on forehead. Red flags for re-assessment reviewed with patient in detail. Head: Normocephalic, no masses, lesions, tenderness or abnormalities BACK: Normal curvature of spine. No spine tenderness. Straight leg test negative. Deep tendon reflexes 2+/4 at patellas. Normal lower extremity strength. Lungs: Lungs clear to auscultation. No wheezing, rhonchi, rales Heart: RRR without murmur, gallop, or rubs. No ectopy Abdomen: Normal abdominal exam, Abdomen soft, non-tender. Bowel sounds normal. No masses, organomegaly Extremities: No deformities, edema, skin discoloration, clubbing or cyanosis. Good capillary refill. Musculoskeletal: No joint swelling, deformity, or tenderness Peripheral pulses: Normal Neuro: Negative. ASSESSMENT/PLAN: 1. Primary hypertension - ICD9: 401.9, ICD10: I10 (primary diagnosis) - good control - Continue current medication(s) - Goal of BP <130/80 2. Hypothyroidism, unspecified type - ICD9: 244.9, ICD10: E03.9 - get labs. 3. Essential hypertension - ICD9: 401.9, ICD10: I10 4. Dysmetabolic syndrome - ICD9: 277.7, ICD10: E88.81 - check labs. Already ordered. 5. 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 coronary artery of [place] heart without angina pectoris- ICD9: 414.01, ICD10: I25.10 - stable. 6. Lumbar pain - ICD9: 724.2, ICD10: M54.50 - Red flags for re-assessment reviewed with patient in detail. - XR LUMBAR GENERAL 3V AP/LAT/L5-S1 - CONSULT TO PHYSICAL THERAPY Josue Aguilera MD RTO in six months documented in this encounterOur [facility] Miscellaneous Notes* Telephone Encounter - Michaela Vines LPN - 07/20/2022 9:02 AM EDT Patient has been identified by name and date of : Yes Patient phones for refill(s): Requested Prescriptions Pending Prescriptions Disp Refills atorvastatin (LIPITOR) 20 mg tablet 90 tablet 1 Sig: Take 1 tablet by mouth once daily. levothyroxine (SYNTHROID) 112 mcg tablet 90 tablet 1 Sig: Take 1 tablet by mouth once daily. clopidogrel (PLAVIX) 75 mg tablet 90 tablet 1 Sig: Take 1 tablet by mouth once daily. lisinopril (ZESTRIL, PRINIVIL) 5 mg tablet 90 tablet 1 Sig: Take 1 tablet by mouth once daily. Date of last office visit in primary care: 03/13/22 Next appointment scheduled 09/14/22 Please advise. Thank you. Michaela Vines LPN documented in this encounterOur [facility]05-[facility] History of Present illness Narrative* Josue Aguilera MD - 03/13/2022 10:32 AM EDT Patient presents with: 6 Month Exam HPI: Patient presents today for office visit for follow up. HTN: Patient is compliant with meds Yes Denies side effects: No. Chest pain: No. Dyspnea: No. Edema: No. Palpitations: No. CAD:seeing Dr. Banks. HYPERLIPIDEMIA: Patient is taking medications: Yes. Patient denies myalgias: Yes. HYPOTHYROID: Patient is compliant with medications: Yes Patient has changes in energy: No Patient has changes in hair or skin: Does have occasional scalp itching. Just recently changed shampoos. No rash or flaking. Patient has weight changes: slight Rarely gets occasional mild back pain. Component Latest Ref Rng & Units 09/12/2021 WBC 3.70 - 11.00 k/uL 6.00 RBC 4.20 - 6.00 m/uL 4.42 Hemoglobin 13.0 - 17.0 g/dL 13.9 Hematocrit 39.0 - 51.0 % 43.9 MCV 80.0 - 100.0 fL 99.3 MCH 26.0 - 34.0 pG 31.4 MCHC 30.5 - 36.0 g/dL 31.7 RDW-CV 11.5 - 15.0 % 12.4 Platelet Count 150 - 400 k/uL 245 MPV 9.0 - 12.7 fL 10.6 Neut% % 60.5 Abs Neut (ANC) 1.45 - 7.50 k/uL 3.63 Lymph% % 23.7 Abs Lymph 1.00 - 4.00 k/uL 1.42 [facility]% % 12.7 Abs [facility] <0.87 k/uL 0.76 Eosin% % 2.8 Abs Eosin <0.46 k/uL 0.17 Baso% % 0.3 Abs Baso <0.11 k/uL <0.03 Nucleated Reds 0 /100 WBC 0.0 Absolute nRBC <0.01 k/uL <0.01 Diff Type Auto Diff Protein, Total 6.3 - 8.0 g/dL 7.4 Albumin 3.9 - 4.9 g/dL 4.7 Calcium 8.5 - 10.2 mg/dL 9.4 Bilirubin, Total 0.2 - 1.3 mg/dL 0.8 Alkaline Phosphatase 38 - 113 U/L 97 AST 14 - 40 U/L 28 Glucose 74 - 99 mg/dL 117 (H) BUN 9 - 24 mg/dL 16 Creatinine 0.73 - 1.22 mg/dL 0.78 Sodium 136 - 144 mmol/L 139 Potassium 3.7 - 5.1 mmol/L 4.8 Chloride 97 - 105 mmol/L 102 CO2 22 - 30 mmol/L 25 Anion Gap 9 - 18 mmol/L 12 ALT 10 - 54 U/L 32 eGFR- >60 eGFR-All Other Races . >60 Cholesterol, Total <200 mg/dL 124 Triglyceride <150 mg/dL 68 HDL Cholesterol >39 mg/dL 44 LDL Cholesterol <100 mg/dL 66 Non HDL Cholesterol <130 mg/dL 80 Fasting Time hrs 12 VLDL Cholesterol <30 mg/dL 14 TC:HDL Ratio <5.10 2.82 LDL:HDL Ratio <2.54 1.50 Hemoglobin A1C 4.3 - 5.6 % 6.1 (H) Estimated Average Glucose mg/dL 128 TSH 0.270 - 4.200 uU/mL 0.650 MEDICATIONS: Current Outpatient Medications Medication Sig atorvastatin (LIPITOR) 20 mg tablet Take 1 tablet by mouth once daily. levothyroxine (SYNTHROID) 112 mcg tablet Take 1 tablet by mouth once daily. clopidogrel (PLAVIX) 75 mg tablet Take 1 tablet by mouth once daily. lisinopril (ZESTRIL, PRINIVIL) 5 mg tablet Take 1 tablet by mouth once daily. nitroglycerin sublingual (NITROQUICK) 0.4 mg SL tablet Dissolve 1 tablet under the tongue every 5 minutes as needed for chest pain, up to 3 doses. If no relief, call 911. Aspirin 81 mg Tab Take 1 tablet by mouth once daily. Take with food. No current facility-administered medications for this visit. ALLERGIES: ALLERGIES Allergen Reactions Coconut Vomiting Only allergic to shredded coconut, fine with oils. 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 HYPERLIPIDEMIA NEC/NOS Hyperplasia of prostate Personal history of colonic polyps S/P angioplasty with stent 02/21/2010 x2 Thyroid nodule 08/05/2012 Unspecified hemorrhoids without mention of complication Unspecified hypothyroidism PAST SURGICAL HISTORY Procedure Laterality Date ARTHRP KNE CONDYLE&PLATU MEDIAL&LAT COMPARTMENTS 1990 Knee replacement, total LEFT ARTHRP KNE CONDYLE&PLATU MEDIAL&LAT COMPARTMENTS 2006 PARTIAL KNEE REPLACEMENT RIGHT CC CORONARY STENT 02/2010 x2 COLONOSCOPY & POLYPECTOMY 01/14/02 repeat 2011 FNA WITH IMAGING 08/21/12 U/S FNA right thyroid lesion FAMILY HISTORY Problem Relation Age of Onset Cancer Mother LYMPHATIC Heart Father IA Emphysema Father smoker/welder shielded metal arc Cancer Maternal Grandmother Social History Tobacco Use Smoking status: Former Smoker Packs/day: 1.00 Years: 25.00 Pack years: 25.00 Quit date: 11/24/1989 Years since quittin.3 Smokeless tobacco: Never Used Substance Use Topics Alcohol use: Yes Alcohol/week: 1.0 standard drink Types: 1 Cans of Beer (12oz) per week Drug use: No Reviewed current medications, allergies, past medical history, surgical history, family history andsocial history today. REVIEW OF SYSTEMS GI: Negative for change in bowel habit, vomiting : Negative All other reviewed and negative other than HPI. HEALTH MAINTENANCE: Reviewed health maintenance issues today and recommended the following in detail. ADVANCE DIRECTIVE DISCUSSION -Discussed advanced planning with patient today. They have a DPOA/Living Will:Yes Chosen surrogate for decision maker:his Blank DPOA/Living Will forms given:NA Reminded patients to have copies of their forms brought into the office to have placed in their medical records. Questions were answered. VITALS: BP 128/64 Pulse (!) 52 Wt 88.9 kg (196 lb) BMI 28.12 kg/m Last 4 Encounter Wt Readings: Date: Wt: 03/13/2022 88.9 kg (196 lb) 09/12/2021 87.5 kg (193 lb) 08/08/2021 88 kg (194 lb) 05/20/2021 86.7 kg (191 lb 3.2 oz) PHYSICAL EXAMINATION: General appearance: Well appearing, alert, in no acute distress, well-hydrated, well nourished. Skin: Skin color, texture, turgor normal, no suspicious rashes or lesions Head: Normocephalic, no masses, lesions, tenderness or abnormalities Eyes: Anicteric sclera. Pupils are equally round and reactive to light. Extraocular movements are intact. Neck: Supple, no adenopathy; thyroid symmetric, normal size, no bruits Lungs: Lungs clear to auscultation. No wheezing, rhonchi, rales Heart: RRR without murmur, gallop, or rubs. No ectopy Abdomen: Normal abdominal exam, Abdomen soft, non-tender. Bowel sounds normal. No masses, organomegaly Extremities: No deformities, edema, skin discoloration, clubbing or cyanosis. Good capillary refill. Musculoskeletal: No joint swelling, deformity, or tenderness Peripheral pulses: Normal Neuro: Negative. ASSESSMENT/PLAN: 1. Hypothyroidism, unspecified type - ICD9: 244.9, ICD10: E03.9 (primary diagnosis) Continue current medications. Notify us if any difficulties are noted. - LEVOTHYROXINE 112 MCG TABLET - TSH BLD 2. Other hyperlipidemia - ICD9: 272.4, ICD10: E78.49 - Continue current meds. - ATORVASTATIN 20 MG TABLET 3. 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 coronary artery of [place] heart without angina pectoris- ICD9: 414.01, ICD10: I25.10 - call if any issues. - CLOPIDOGREL 75 MG TABLET - LISINOPRIL 5 MG TABLET 4. Dysmetabolic syndrome - ICD9: 277.7, ICD10: E88.81 - HGB A1C 5. Essential hypertension - ICD9: 401.9, ICD10: I10 - good control - Continue current medication(s) - Goal of BP <130/80 - LISINOPRIL 5 MG TABLET - CBC + DIFF - COMP METABOLIC PANEL - LIPID PANEL BASIC Josue WHITMOREO in six months and prn. documented in this encounterOur [facility]07[facility] History of Present illness Narrative* Lakia Gastelum RT(R) - 05/20/2021 2:20 PM EDT Radiology Service Progress Note PATIENT NAME: Santa Pearl DATE OF SERVICE: May 20, 2021 TIME: 2:18 PM PATIENT IDENTITY VERIFICATION COMPLETED USING TWO (2) IDENTIFIERS: Name and Date of confirmedby patient verbally. FALL SCREENING: Has the patient had 2 falls in the last year or 1 fall with injury or currently using an Ambulatory Assistive Device (Walker, Cane, Wheelchair, Crutches, etc.)? No PATIENT GENDER DATA: Male PATIENT RELEVANT IMPLANT DATA REVIEWED: Yes RADIOLOGY DEPARTMENT: General X-ray: Exam(s) Completed: Lower Extremity X- Ray(s): Heel, Right PERIPHERAL IV DATA: Not applicable SIGNED BY: RT Mich(R) May 20, 2021 2:18 PM documented in this encounterOur Lady Of [facility]04-26-[facility]21 History of Present illness Narrative* Leilani Perdue (Rt), Tech - 03/07/2021 10:00 AM EDT Radiology Service Progress Note PATIENT NAME: Santa Pearl DATE OF SERVICE: March 07, 2021 TIME: 10:05 AM PATIENT IDENTITY VERIFICATION COMPLETED USING TWO (2) IDENTIFIERS: Name and Date of confirmedby patient verbally. FALL SCREENING: Has the patient had 2 falls in the last year or 1 fall with injury or currently using an Ambulatory Assistive Device (Walker, Cane, Wheelchair, Crutches, etc.)? No PATIENT GENDER DATA: Male PATIENT RELEVANT IMPLANT DATA REVIEWED: Not Applicable RADIOLOGY DEPARTMENT: General X-ray: Exam(s) Completed: Upper Extremity X- Ray(s): Shoulder, AP / TRUE AP / AXILLARY right PERIPHERAL IV DATA: Not applicable SIGNED BY: RT Kevin March 07, 2021 10:05 AM documented in this encounterOur Lady Of [facility]08-11-2016 History of Past illness Narrative* Problem Noted Date Resolved Date Coronary artery disease invo lving [place] coronary artery of [place] heart without angina pectoris 06/22/2016 12/19/2016 Flank pain 02/21/2010 12/19/2016 Coronary artery disease invo lving [place] coronary artery of [place] heart without angina pectoris 02/21/2010 03/13/2022 S/P angioplasty with stent 02/21/201012/19 Hypothyroid 02/12/2010 02/21/2010 Overview: On synthroid NSTEMI (non-ST elevated myocardial infarction) 0 02/12/2010 12/19/2016 Overview: On ACS protocol: ASA, Plavix, Atorvstatin, Heparin and NTG gtt. Minimal enzyme leak. Recheck third set. LHC+/- PCI Sunday unless rising enzymes/ ongoing chest pain today. Sinus bradycardia 02/12/2010 02/21/2010 Overview: Asympotmatic SUMMARY 02/11/2010 02/21/2010 Overview: 65 M pmx hypothyroidism, bronchitis, ex smoker quit 20 yrs ago with CP transferred to OSH for NSTEMI Chest pain 07/13/2009 02/21/2010 Overview: ACS protocol: on Nitroglycerin, ASA, Plavix, Atorvastatin, heparin gtt Will follow CE EKG sinus Sebastian will hold off on BB BP low 90s will hold off on ACEI Elevated blood pressure read ing without diagnosis of hypertension 06/03/2009 11/19/2019 Other seborrheic keratosis 12/08/200812/19 Routine general medical exam ination at a health care facility 07/17/2007 06/14/2016 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 12/19/2016 Herpes zoster without mention of complication 12/19/2016 Pain in joint, lower leg 01/08/2007 017 documented as of this encounter (statuses as of 03/13/2022) [facility] of Past illness Narrative* Problem Noted Date Resolved Date Coronary artery disease invo lving [place] coronary artery of [place] heart without angina pectoris 06/22/2016 12/19/2016 Flank pain 02/21/2010 12/19/2016 Coronary artery disease invo lving [place] coronary artery of [place] heart without angina pectoris 02/21/2010 03/13/2022 S/P angioplasty with stent 02/21/201012/19 Hypothyroid 02/12/2010 02/21/2010 Overview: On synthroid NSTEMI (non-ST elevated myocardial infarction) 0 02/12/2010 12/19/2016 Overview: On ACS protocol: ASA, Plavix, Atorvstatin, Heparin and NTG gtt. Minimal enzyme leak. Recheck third set. LHC+/- PCI Sunday unless rising enzymes/ ongoing chest pain today. Sinus bradycardia 02/12/2010 02/21/2010 Overview: Asympotmatic SUMMARY 02/11/2010 02/21/2010 Overview: 65 M pmx hypothyroidism, bronchitis, ex smoker quit 20 yrs ago with CP transferred to OSH for NSTEMI Chest pain 07/13/2009 02/21/2010 Overview: ACS protocol: on Nitroglycerin, ASA, Plavix, Atorvastatin, heparin gtt Will follow CE EKG sinus Sebastian will hold off on BB BP low 90s will hold off on ACEI Elevated blood pressure read ing without diagnosis of hypertension 06/03/2009 11/19/2019 Other seborrheic keratosis 12/08/200812/19 Routine general medical exam ination at a health care facility 07/17/2007 06/14/2016 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 12/19/2016 Herpes zoster without mention of complication 12/19/2016 Pain in joint, lower leg 01/08/2007 017 documented as of this encounter (statuses as of 07/20/2022) [facility] of Past illness Narrative* Problem Noted Date Resolved Date Coronary artery disease invo lving [place] coronary artery of [place] heart without angina pectoris 06/22/2016 12/19/2016 Flank pain 02/21/2010 12/19/2016 Coronary artery disease invo lving [place] coronary artery of [place] heart without angina pectoris 02/21/2010 03/13/2022 S/P angioplasty with stent 02/21/201012/19 Hypothyroid 02/12/2010 02/21/2010 Overview: On synthroid NSTEMI (non-ST elevated myocardial infarction) 0 02/12/2010 12/19/2016 Overview: On ACS protocol: ASA, Plavix, Atorvstatin, Heparin and NTG gtt. Minimal enzyme leak. Recheck third set. LHC+/- PCI Sunday unless rising enzymes/ ongoing chest pain today. Sinus bradycardia 02/12/2010 02/21/2010 Overview: Asympotmatic SUMMARY 02/11/2010 02/21/2010 Overview: 65 M pmx hypothyroidism, bronchitis, ex smoker quit 20 yrs ago with CP transferred to OSH for NSTEMI Chest pain 07/13/2009 02/21/2010 Overview: ACS protocol: on Nitroglycerin, ASA, Plavix, Atorvastatin, heparin gtt Will follow CE EKG sinus Sebastian will hold off on BB BP low 90s will hold off on ACEI Elevated blood pressure read ing without diagnosis of hypertension 06/03/2009 11/19/2019 Other seborrheic keratosis 12/08/200812/19 Routine general medical exam ination at a health care facility 07/17/2007 06/14/2016 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 12/19/2016 Herpes zoster without mention of complication 12/19/2016 Pain in joint, lower leg 01/08/2007 017 documented as of this encounter (statuses as of 09/14/2022) [facility] History of Past illness Narrative* Problem Noted Date Resolved Date Coronary artery disease invo lving [place] coronary artery of [place] heart without angina pectoris 06/22/2016 12/19/2016 Flank pain 02/21/2010 12/19/2016 Coronary artery disease invo lving [place] coronary artery of [place] heart without angina pectoris 02/21/2010 03/13/2022 S/P angioplasty with stent 02/21/201012/19 Hypothyroid 02/12/2010 02/21/2010 Overview: On synthroid NSTEMI (non-ST elevated myocardial infarction) 0 02/12/2010 12/19/2016 Overview: On ACS protocol: ASA, Plavix, Atorvstatin, Heparin and NTG gtt. Minimal enzyme leak. Recheck third set. LHC+/- PCI Sunday unless rising enzymes/ ongoing chest pain today. Sinus bradycardia 02/12/2010 02/21/2010 Overview: Asympotmatic SUMMARY 02/11/2010 02/21/2010 Overview: 65 M pmx hypothyroidism, bronchitis, ex smoker quit 20 yrs ago with CP transferred to OSH for NSTEMI Chest pain 07/13/2009 02/21/2010 Overview: ACS protocol: on Nitroglycerin, ASA, Plavix, Atorvastatin, heparin gtt Will follow CE EKG sinus Sebastian will hold off on BB BP low 90s will hold off on ACEI Elevated blood pressure read ing without diagnosis of hypertension 06/03/2009 11/19/2019 Other seborrheic keratosis 12/08/200812/19 Routine general medical exam ination at a health care facility 07/17/2007 06/14/2016 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 12/19/2016 Herpes zoster without mention of complication 12/19/2016 Pain in joint, lower leg 01/08/2007 017 documented as of this encounter (statuses as of 10/18/2022) [facility] History of Past illness Narrative* Problem Noted Date Resolved Date Flank pain 02/21/2010 12/19/2016 Coronary artery disease invo lving [place] coronary artery of [place] heart without angina pectoris 02/21/2010 03/13/2022 S/P angioplasty with stent 02/21/201012/19 Hypothyroid 02/12/2010 02/21/2010 Overview: On synthroid NSTEMI (non-ST elevated myocardial infarction) 0 02/12/2010 12/19/2016 Overview: On ACS protocol: ASA, Plavix, Atorvstatin, Heparin and NTG gtt. Minimal enzyme leak. Recheck third set. LHC+/- PCI Sunday unless rising enzymes/ ongoing chest pain today. Sinus bradycardia 02/12/2010 02/21/2010 Overview: Asympotmatic SUMMARY 02/11/2010 02/21/2010 Overview: 65 M pmx hypothyroidism, bronchitis, ex smoker quit 20 yrs ago with CP transferred to OSH for NSTEMI Chest pain 07/13/2009 02/21/2010 Overview: ACS protocol: on Nitroglycerin, ASA, Plavix, Atorvastatin, heparin gtt Will follow CE EKG sinus Sebastian will hold off on BB BP low 90s will hold off on ACEI Elevated blood pressure read ing without diagnosis of hypertension 06/03/2009 11/19/2019 Other seborrheic keratosis 12/08/200812/19 Routine general medical exam ination at a health care facility 07/17/2007 06/14/2016 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 12/19/2016 Herpes zoster without mention of complication 12/19/2016 Pain in joint, lower leg 01/08/2007 017 documented as of this encounter (statuses as of 01/08/2023) [facility] History of Past illness Narrative* Problem Noted Date Resolved Date Flank pain 02/21/2010 12/19/2016 Coronary artery disease invo lving [place] coronary artery of [place] heart without angina pectoris 02/21/2010 03/13/2022 S/P angioplasty with stent 02/21/201012/19 Hypothyroid 02/12/2010 02/21/2010 Overview: On synthroid NSTEMI (non-ST elevated myocardial infarction) 0 02/12/2010 12/19/2016 Overview: On ACS protocol: ASA, Plavix, Atorvstatin, Heparin and NTG gtt. Minimal enzyme leak. Recheck third set. LHC+/- PCI Sunday unless rising enzymes/ ongoing chest pain today. Sinus bradycardia 02/12/2010 02/21/2010 Overview: Asympotmatic SUMMARY 02/11/2010 02/21/2010 Overview: 65 M pmx hypothyroidism, bronchitis, ex smoker quit 20 yrs ago with CP transferred to OSH for NSTEMI Chest pain 07/13/2009 02/21/2010 Overview: ACS protocol: on Nitroglycerin, ASA, Plavix, Atorvastatin, heparin gtt Will follow CE EKG sinus Sebastian will hold off on BB BP low 90s will hold off on ACEI Elevated blood pressure read ing without diagnosis of hypertension 06/03/2009 11/19/2019 Other seborrheic keratosis 12/08/200812/19 Routine general medical exam ination at a health care facility 07/17/2007 06/14/2016 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 12/19/2016 Herpes zoster without mention of complication 12/19/2016 Pain in joint, lower leg 01/08/2007 017 documented as of this encounter (statuses as of 01/08/2023) [facility] History of Past illness Narrative* Problem Noted Date Resolved Date Flank pain 02/21/2010 12/19/2016 Coronary artery disease invo lving [place] coronary artery of [place] heart without angina pectoris 02/21/2010 03/13/2022 S/P angioplasty with stent 02/21/201012/19 Hypothyroid 02/12/2010 02/21/2010 Overview: On synthroid NSTEMI (non-ST elevated myocardial infarction) 0 02/12/2010 12/19/2016 Overview: On ACS protocol: ASA, Plavix, Atorvstatin, Heparin and NTG gtt. Minimal enzyme leak. Recheck third set. LHC+/- PCI Sunday unless rising enzymes/ ongoing chest pain today. Sinus bradycardia 02/12/2010 02/21/2010 Overview: Asympotmatic SUMMARY 02/11/2010 02/21/2010 Overview: 65 M pmx hypothyroidism, bronchitis, ex smoker quit 20 yrs ago with CP transferred to OSH for NSTEMI Chest pain 07/13/2009 02/21/2010 Overview: ACS protocol: on Nitroglycerin, ASA, Plavix, Atorvastatin, heparin gtt Will follow CE EKG sinus Sebastian will hold off on BB BP low 90s will hold off on ACEI Elevated blood pressure read ing without diagnosis of hypertension 06/03/2009 11/19/2019 Other seborrheic keratosis 12/08/200812/19 Routine general medical exam ination at a health care facility 07/17/2007 06/14/2016 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 12/19/2016 Herpes zoster without mention of complication 12/19/2016 Pain in joint, lower leg 01/08/2007 017 documented as of this encounter (statuses as of 03/14/2023) [facility] History of Past illness Narrative* Problem Noted Date Resolved Date Flank pain 02/21/2010 12/19/2016 Coronary artery disease invo lving [place] coronary artery of [place] heart without angina pectoris 02/21/2010 03/13/2022 S/P angioplasty with stent 02/21/201012/19 Hypothyroid 02/12/2010 02/21/2010 Overview: On synthroid NSTEMI (non-ST elevated myocardial infarction) 0 02/12/2010 12/19/2016 Overview: On ACS protocol: ASA, Plavix, Atorvstatin, Heparin and NTG gtt. Minimal enzyme leak. Recheck third set. LHC+/- PCI Sunday unless rising enzymes/ ongoing chest pain today. Sinus bradycardia 02/12/2010 02/21/2010 Overview: Asympotmatic SUMMARY 02/11/2010 02/21/2010 Overview: 65 M pmx hypothyroidism, bronchitis, ex smoker quit 20 yrs ago with CP transferred to OSH for NSTEMI Chest pain 07/13/2009 02/21/2010 Overview: ACS protocol: on Nitroglycerin, ASA, Plavix, Atorvastatin, heparin gtt Will follow CE EKG sinus Sebastian will hold off on BB BP low 90s will hold off on ACEI Elevated blood pressure read ing without diagnosis of hypertension 06/03/2009 11/19/2019 Other seborrheic keratosis 12/08/200812/19 Routine general medical exam ination at a health care facility 07/17/2007 06/14/2016 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 12/19/2016 Herpes zoster without mention of complication 12/19/2016 Pain in joint, lower leg 01/08/2007 017 documented as of this encounter (statuses as of 04/25/2023) [facility] History of Past illness Narrative* Problem Noted Date Diagnosed Date Resolved Date Flank pain 02/21/2010 12/19/2016 Coronary artery disease invo lving [place] coronary artery of [place] heart without angina pectoris 02/21/2010 03/13/2022 S/P angioplasty with stent 02/21/2010 0 12/19/2016 Hypothyroid 02/12/2010 02/21/2010 Overview: On synthroid NSTEMI (non-ST elevated myoc ardial infarction) 02/12/2010 12/19/2016 Overview: On ACS protocol: ASA, Plavix, Atorvstatin, Heparin and NTG gtt. Minimal enzyme leak. Recheck third set. LHC+/- PCI Sunday unless rising enzymes/ ongoing chest pain today. Sinus bradycardia 02/12/2010 02/21/2010 Overview: Asympotmatic SUMMARY 02/11/2010 02/21/2010 Overview: 65 M pmx hypothyroidism, bronchitis, ex smoker quit 20 yrs ago with CP transferred to OSH for NSTEMI Chest pain 07/13/2009 02/21/2010 Overview: ACS protocol: on Nitroglycerin, ASA, Plavix, Atorvastatin, heparin gtt Will follow CE EKG sinus Sebastian will hold off on BB BP low 90s will hold off on ACEI Elevated blood pressure read ing without diagnosis of hypertension 06/03/2009 11/19/2019 Other seborrheic keratosis 12/08/2008 0 12/19/2016 Routine general medical exam ination at a health care facility 07/17/2007 06/14/2016 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 12/19/2016 Herpes zoster without mention of complication 05/03/20 07 12/19/2016 Pain in joint, lower leg 01/08/200705/2017 documented as of this encounter (statuses as of 09/16/2023) [facility] [place] [facility]* Diagnosis Hypothyroidism, unspecified type- Primary Other hyperlipidemia 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 coronary artery of [place] heart without angina pectoris Dysmetabolic syndrome Dysmetabolic Syndrome X Essential hypertension Unspecified essential hypertension [facility] noteNo assessment information availableWGreen [facility] Work Phone: Evaluation note* Diagnosis Other hyperlipidemia Hypothyroidism, unspecified type 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 coronary artery of [place] heart without angina pectoris Essential hypertension Unspecified essential hypertension [facility] Diagnosis Primary hypertension- Primary Unspecified essential hypertension Hypothyroidism, unspecified type Essential hypertension Unspecified essential hypertension Dysmetabolic syndrome Dysmetabolic Syndrome X 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 coronary artery of [place] heart without angina pectoris Lumbar pain Lumbago [facility] Diagnosis 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 coronary artery of [place] heart without angina pectoris- Primary Essential hypertension Unspecified essential hypertension Other hyperlipidemia [facility] Hypothyroidism, unspecified type [facility] Diagnosis 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 coronary artery of [place] heart without angina pectoris- Primary Essential hypertension Unspecified essential hypertension Hypothyroidism, unspecified type Hyperglycemia Other abnormal glucose [facility] Diagnosis Other hyperlipidemia- Primary Hypothyroidism, unspecified type 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 coronary artery of [place] heart without angina pectoris Essential hypertension Unspecified essential hypertension Dysmetabolic syndrome Dysmetabolic Syndrome X Nodular prostate without urinary obstruction URI, acute Acute upper respiratory infections of unspecified site [facility]* Diagnosis COVID-19- Primary [facility] [place] [facility]* Diagnosis COVID-19 [facility] [place] [facility]* Diagnosis Other hyperlipidemia 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 coronary artery of [place] heart without angina pectoris Essential hypertension Unspecified essential hypertension [facility] [place] [facility]* Diagnosis S/P right coronary artery (RCA) stent placement- Primary 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 coronary artery of [place] heart without angina pectoris Essential hypertension Unspecified essential hypertension Hypothyroidism, unspecified type Dysmetabolic syndrome Dysmetabolic Syndrome X Subarachnoid bleed (HCC) Subarachnoid hemorrhage Other hyperlipidemia Screening for colon cancer Special screening for malignant neoplasms, colon Impacted cerumen of left ear Impacted cerumen [facility] [place] [facility]* Diagnosis Controlled type 2 diabetes mellitus without complication, without long-term current use of insulin (HCC)- Primary [facility] [place] [facility]* Diagnosis Controlled type 2 diabetes mellitus without complication, without long-term current use of insulin (HCC)- Primary Encounter for immunization Need for other specified prophylactic vaccination against single bacterial disease documented [facility] this [facility] [place] [facility]* Diagnosis Hypothyroidism, unspecified type Other hyperlipidemia 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 coronary artery of [place] heart without angina pectoris Essential hypertension Unspecified essential hypertension [facility] this [facility] [place] [facility]* Diagnosis Controlled type 2 diabetes mellitus without complication, without long-term current use of insulin (HCC) documented [facility] this encounter [facility] [place] [facility]* Diagnosis Lumbar pain Lumbago [facility] [place] [facility]* Diagnosis Acute pain of right shoulder [facility] this [facility] [place] [facility]* Diagnosis Foot pain, right Pain in limb [facility] this [facility] [place] [facility]* Diagnosis Left hip pain- Primary Pain in joint, pelvic region and thigh Acute pain of left knee Left knee pain, unspecified chronicity Controlled type 2 diabetes mellitus without complication, without long-term current use of insulin (HCC) Other specified hypothyroidism documented [facility] this encounter [facility] [place] [facility]* Diagnosis Left hip pain Pain in joint, pelvic region and thigh Left knee pain, unspecified chronicity [facility] this encounter [facility] [place] [facility]* Diagnosis Hypothyroidism, unspecified type [facility] [place] [facility]* Diagnosis Other hyperlipidemia 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 coronary artery of [place] heart without angina pectoris Essential hypertension Unspecified essential hypertension [facility] this encounter [facility] [place] [facility]* Diagnosis Primary osteoarthritis of left hip- Primary Primary localized osteoarthrosis, pelvic region and thigh Status post left hip replacement Hip joint replacement by other means documented in this encounter [facility] note* Diagnosis Primary osteoarthritis of left hip- Primary Primary localized osteoarthrosis, pelvic region and thigh Primary osteoarthritis of left hip Primary localized osteoarthrosis, pelvic region and thigh documented in this encounter [facility] note* Diagnosis History of subarachnoid hemorrhage- Primary Personal history of other diseases of circulatory system S/P right coronary artery (RCA) stent placement 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 coronary artery of [place] heart without angina pectoris Essential hypertension Unspecified essential hypertension Other hyperlipidemia Hypothyroidism, unspecified type Thyroid nodule Nontoxic uninodular goiter Controlled type 2 diabetes mellitus without complication, without long-term current use of insulin (HCC) URI, acute Acute upper respiratory infections of unspecified site Primary osteoarthritis of left hip Primary localized osteoarthrosis, pelvic region and thigh documented in this encounter [facility] note* Diagnosis Pre-operative examination- Primary Preoperative examination, unspecified 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 coronary artery of [place] heart without angina pectoris Essential hypertension Unspecified essential hypertension Other hyperlipidemia Sinus bradycardia Other specified cardiac dysrhythmias Controlled type 2 diabetes mellitus without complication, without long-term current use of insulin (HCC) Hypothyroidism, unspecified type Thyroid nodule Nontoxic uninodular goiter History of subarachnoid hemorrhage Personal history of other diseases of circulatory system Status post total bilateral knee replacement Dysmetabolic syndrome Dysmetabolic Syndrome X Nodular prostate without urinary obstruction Primary osteoarthritis of left hip Primary localized osteoarthrosis, pelvic region and thigh * Assessment & Plan Note - Molly Roy APRN.CNP - 12/10/2024 12:26 PM EST Associated Problem(s): Nodular prostate without urinary obstruction Assessment: hx remote urology evaluation, normal flow, denies any current tx * Assessment & Plan Note - Molly Roy APRN.CNP - 12/10/2024 12:25 PM EST Associated Problem(s): Dysmetabolic syndrome Assessment: controlled on oral agent, new A1c pending Hemoglobin A1C (%) Date Value 05/28/2024 6.6 09/12/2021 6.1 * Assessment & Plan Note - Molly Roy APRN.CNP - 12/10/2024 12:25 PM EST Associated Problem(s): Status post total bilateral knee replacement Assessment: hx, bilateral * Assessment & Plan Note - Molly Roy APRN.CNP - 12/10/2024 12:24 PM EST Associated Problem(s): History of subarachnoid hemorrhage Assessment: hx 11/2023 * Assessment & Plan Note - Molly Roy APRN.CNP - 12/10/2024 12:23 PM EST Associated Problem(s): Thyroid nodule Assessment: evaluated by gilson, denies compressive symptoms, hx benign FNA * Assessment & Plan Note - Molly Roy APRN.CNP - 12/10/2024 12:21 PM EST Associated Problem(s): Hypothyroidism Assessment: stable on rx TSH Date Value Ref Range Status 05/28/2024 2.040 0.270 - 4.200 mIU/L Final * Assessment & Plan Note - Molly Roy APRN.CNP - 12/10/2024 12:21 PM EST Associated Problem(s): Controlled type 2 diabetes mellitus without complication, without long-term current use of insulin (HCC) Assessment: controlled on oral agent Hemoglobin A1C (%) Date Value 05/28/2024 6.6 09/12/2021 6.1 * Assessment & Plan Note - Molly Roy APRN.CNP - 12/10/2024 12:21 PM EST Associated Problem(s): Sinus bradycardia Assessment: chronic, asymptomatic, following cardiology * Assessment & Plan Note - Molly Roy APRN.CNP - 12/10/2024 12:19 PM EST Associated Problem(s): Other hyperlipidemia Assessment: c/w statin * Assessment & Plan Note - Molly Roy APRN.CNP - 12/10/2024 12:19 PM EST Associated Problem(s): Essential hypertension Assessment: controlled on rx Last 14 BP Last 14 Encounter BP Readings: Date: BP: 12/10/2024 118/82 11/28/2024 124/74 09/02/2024 120/68 06/02/2024 120/60 05/28/2024 130/70 11/26/2023 134/68 10/03/2023 122/82 03/14/2023 100/64 01/08/2023 142/80 09/14/2022 138/70 06/26/2022 124/64 03/13/2022 128/64 09/12/2021 132/64 08/08/2021 144/62 * Assessment & Plan Note - Molly Roy APRN.CNP - 12/10/2024 12:19 PM EST Associated Problem(s): 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 coronary artery of [place] heart without angina pectoris Assessment: s/p stent, following [facility] cardiology and PCP, c/w statin, ASA, and BB. Denies CP, palpitations, sob, new or worsening cardiac symptoms. Pt last cardiac testing 03/2023 with normal stress test, LVEF 69% and EKG today sinus sebastian (HR 54) with 1st degree AV block (no change from [facility]) documented in this encounter [facility] [place] [facility]* Diagnosis Pre-operative examination- Primary Preoperative examination, unspecified 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 coronary artery of [place] heart without angina pectoris Essential hypertension Unspecified essential hypertension Other hyperlipidemia Sinus bradycardia Other specified cardiac dysrhythmias Controlled type 2 diabetes mellitus without complication, without long-term current use of insulin (HCC) Hypothyroidism, unspecified type Thyroid nodule Nontoxic uninodular goiter History of subarachnoid hemorrhage Personal history of other diseases of circulatory system Status post total bilateral knee replacement Dysmetabolic syndrome Dysmetabolic Syndrome X Nodular prostate without urinary obstruction Hoarseness- Primary Dysphonia documented in this encounter [facility] note* Diagnosis Pre-operative examination- Primary Preoperative examination, unspecified 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 coronary artery of [place] heart without angina pectoris Essential hypertension Unspecified essential hypertension Other hyperlipidemia Sinus bradycardia Other specified cardiac dysrhythmias Controlled type 2 diabetes mellitus without complication, without long-term current use of insulin (HCC) Hypothyroidism, unspecified type Thyroid nodule Nontoxic uninodular goiter History of subarachnoid hemorrhage Personal history of other diseases of circulatory system Status post total bilateral knee replacement Dysmetabolic syndrome Dysmetabolic Syndrome X Nodular prostate without urinary obstruction 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 coronary artery of [place] heart without angina pectoris- Primary Screening for diabetic retinopathy Screening for other eye conditions Hypothyroidism, unspecified type Essential hypertension Unspecified essential hypertension Left hip pain Pain in joint, pelvic region and thigh Controlled type 2 diabetes mellitus without complication, without long-term current use of insulin (HCC) documented [facility] this encounter [facility] [place] [facility]* Diagnosis Pre-operative examination- Primary Preoperative examination, unspecified 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 coronary artery of [place] heart without angina pectoris Essential hypertension Unspecified essential hypertension Other hyperlipidemia Sinus bradycardia Other specified cardiac dysrhythmias Controlled type 2 diabetes mellitus without complication, without long-term current use of insulin (HCC) Hypothyroidism, unspecified type Thyroid nodule Nontoxic uninodular goiter History of subarachnoid hemorrhage Personal history of other diseases of circulatory system Status post total bilateral knee replacement Dysmetabolic syndrome Dysmetabolic Syndrome X Nodular prostate without urinary obstruction Pain in left hip- Primary Pain in joint, pelvic region and thigh documented in this encounter [place] [facility] Diagnosis Pre-operative examination- Primary Preoperative examination, unspecified 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 coronary artery of [place] heart without angina pectoris Essential hypertension Unspecified essential hypertension Other hyperlipidemia Sinus bradycardia Other specified cardiac dysrhythmias Controlled type 2 diabetes mellitus without complication, without long-term current use of insulin (HCC) Hypothyroidism, unspecified type Thyroid nodule Nontoxic uninodular goiter History of subarachnoid hemorrhage Personal history of other diseases of circulatory system Status post total bilateral knee replacement Dysmetabolic syndrome Dysmetabolic Syndrome X Nodular prostate without urinary obstruction Primary osteoarthritis of left hip Primary localized osteoarthrosis, pelvic region and thigh Status post left hip replacement Hip joint replacement by other means documented in this encounter [facility] note* Diagnosis Pre-operative examination- Primary Preoperative examination, unspecified 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 coronary artery of [place] heart without angina pectoris Essential hypertension Unspecified essential hypertension Other hyperlipidemia Sinus bradycardia Other specified cardiac dysrhythmias Controlled type 2 diabetes mellitus without complication, without long-term current use of insulin (HCC) Hypothyroidism, unspecified type Thyroid nodule Nontoxic uninodular goiter History of subarachnoid hemorrhage Personal history of other diseases of circulatory system Status post total bilateral knee replacement Dysmetabolic syndrome Dysmetabolic Syndrome X Nodular prostate without urinary obstruction Status post left hip replacement- Primary Hip joint replacement by other means documented in this encounter [facility] Discharge instructions Additional Instructions Follow-up with your family physician outpatient setting. Return with worsening symptoms or any concerns. Ensure that you are drinking plenty water to stay hydrated.[facility] Work Phone: Patient's home Plan of care note* Visit Details Visit Type -PT SOC Discipline -Physical Therapy Problems Problem Description Start Date Status Goals Interve ntions Medication Education Disciplines: Skilled Services 01/07/2025 Active 1 goal linked to scheduled/documen sara intervention 1 goal intervention scheduled/document ed in this visit Sepsis Disciplines: Skilled Services 01/07/2025 Resolved on 01/07/2025 1 goal linked to scheduled/documen sara intervention 1 goal intervention scheduled/document ed in this visit Physician Specific Parameters Disciplines: Skilled Services 01/07/2025 Active 1 goal linked to scheduled/documen sara intervention 1 goal intervention scheduled/document ed in this visit Risk for Falls Disciplines: Skilled Services 01/07/2025 Active 1 goal linked to scheduled/documen sara intervention 1 goal intervention scheduled/document ed in this visit Pain Disciplines: Skilled Services 01/07/2025 Active 1 goal linked to scheduled/documen sara intervention 1 goal intervention scheduled/document ed in this visit Diabetic Foot Care Disciplines: Skilled Services 01/07/2025 Resolved on 01/07/2025 1 goal linked to scheduled/documen sara intervention 1 goal intervention scheduled/document ed in this visit High Risk Medications Disciplines: Skilled Services 01/07/2025 Active 1 goal linked to scheduled/documen sara intervention 3 goal interventions scheduled/document ed in this visit Discharge Disciplines: Skilled Services 01/07/2025 Active 1 goal linked to scheduled/documen sara intervention 2 goal interventions scheduled/document ed in this visit PT Impaired muscle performance and/or ROM Disciplines: PT 01/07/2025 Active 1 goal linked to scheduled/documen sara intervention 1 goal intervention scheduled/document ed in this visit PT Orthopedic Condition Disciplines: PT 01/07/2025 Active 1 goal linked to scheduled/documen sara intervention 4 goal interventions scheduled/document ed in this visit PT Learning Assessment Disciplines: PT 01/07/2025 Active 1 goal linked to scheduled/documen sara intervention 1 goal intervention scheduled/document ed in this visit Goals Goal Associated Problem Outcome Goal Met? Visit Notes Patient/caregiver will demonstrate ability to obtain, store, identify and administer ordered medications, keep accurate medication list in home, and adhere to medication schedule Description: Patient/caregiver will demonstrate ability to obtain, store, identify and administer ordered medications, keep accurate medication list in home, and adhere to medication schedule by 03/07/25. . Medication Education No Patient/caregiver will be able to identify and report symptoms of sepsis Description: Patient/caregiver will be able to identify signs/symptoms of sepsis infection and will verbalize actions to take if suspected by 03/07/25. . Sepsis Completed Yes Patient to maintain parameters within physician-specified ranges throughout certification period Physician Specific Parameters No Manage Risk for falls Description: Patient/caregiver will verbalize knowledge of individualized fall prevention strategies by 03/07/25. . Risk for Falls No Manage Pain Description: Patient/caregiver will verbalize knowledge and understanding of appropriate techniques to control pain, including pain medication and non-pharmacological techniques. Patient will verbalize or demonstrate an acceptable level of pain as eviden mary by a pain score of <5/10 and improvement in ability to perform activities of daily living to be achieved by 03/07/25. . Pain No Manage diabetic foot care Description: Patient/caregiver will demonstrate basic understanding of and compliance with diabetic self-care management as evidenced by verbalizing purpose of daily foot care and assessment by 03/07/25. Diabetic Foot Care Completed Yes Patient/caregiver will teach back high risk medication side effect and precaution education Description: STG Patient/caregiver will verbalize understanding of high risk medication side effects and precautions to be achieved by 01/07/25. LTG Patient/caregiver will continue to verbalize understanding of high risk medication side effects and precautions throughout certification period. High Risk Medications No Manage discharge planning Description: Patient/caregiver will verbalize understanding of ongoing discharge plan provided related to disease management, arrangements for outpatient and/or community services, obtaining medications, supplies, and DME, as needed [facility] certification period. Discharge No Improved Muscle Performance and/or ROM Description: LTG: Patient will demonstrate improved muscle performance to meet functional goals as evidenced by ability to tolerate 15 minutes of therapeutic activity, to be achieved by 01/31/25 . STG: Patient and/or caregiver will verbalize/demonstrate independence with home exercise program, to improve functional mobility, to be achieved by 01/17/25. PT Impaired muscle performance and/or ROM No Manage Orthopedic Condition Description: Improve patient and/or caregiver understanding of post surgical and/or non-surgical orthopedic intervention management as evidenced by patient and/or caregiver able to verbalize, demonstrate, and teach back instruction, to be achieved by 01/31/25 . PT Orthopedic Condition No Demonstrate understanding of education Description: Patient and/or caregiver will understand educational instruction to be achieved by 01/31/25 . PT Learning Assessment No Interventions Intervention Associated Problem/Goal Status Variance Visit Notes Medication Education Description: Evaluate/instruct patient/caregiver on obtaining, storing, identifying and administering ordered medications as well as keeping accurate medication list in the home and adhereing to medication schedule Problem:Medication Education Goal:Patient/caregive r will demonstrate ability to obtain, store, identify and administer ordered medications, keep accurate medication list in home, and adhere to medication schedule Completed Patient instructed on importance of keeping accurate medication list in home, need to take up-to-date medication list to all medical provider appointments and adhering to medication schedule. Risk of Sepsis Description: Patient is at risk for sepsis. Monitor closely for s/s of sepsis. Problem:Sepsis Goal:Patient/caregive r will be able to identify and report symptoms of sepsis Completed SPO2 Description: Notify Dr. Hough if pulse ox is <92% at rest. Problem:Physician Specific Parameters Goal:Patient to maintain parameters within physician-specified ranges throughout certification period Completed Instruct on individual fall risk factors and strategies to prevent falls and injuries caused by falls. Problem:Risk for Falls Goal:Manage Risk for falls Completed PT: Patient instructed on Eliminating Environmental Hazards: Keep pathways clear, Move furniture from pathways, Keep rooms and walkways well lit, Install hand rails/grab bars, Wear supportive shoes or non-skid socks and Keep frequently used items within reach Managing Impaired Functional Mobility: Use assistive device(s): front wheeled walker Managing Pain Instruct on pain and instruct on strategies to control pain Problem:Pain Goal:Manage Pain Completed patient instructed on techniques to control pain including Pharmacological measures and Non-Pharmacological measures; rest, positioning/elevation and use of thermal modalities, apply ice to affected area Monitor lower extremities for skin lesions and educate on proper foot care Problem:Diabetic Foot Care Goal:Manage diabetic foot care Completed patient instructed on diabetic foot care including daily skin inspection and wearing proper footwear/avoiding going barefoot. Opioids- educated on high risk medication Problem:High Risk Medications Goal:Patient/caregive r will teach back high risk medication side effect and precaution education Completed patient educated on taking medication(s) as prescribed by provider. Do not stop medication or alter doses without speaking with your provider. Discuss medication effectiveness or side effect concerns with your provider and home care team. Only take opioids as prescribed, do not share your medications, and take proper precautions in storing and properly disposing of opioids once no longer needed. Possible side effects of opioid medication including sedation, decreased rate of breathing, and constipation. Report over sedation to prescribing provider and practice deep breathing techniques every hour while awake. Prevent constipation by increasing water and fiber intake, increasing activity as tolerated, and use stool softener(s) as prescribed. Hypoglycemic (including insulin)- educated on high risk medication Problem:High Risk Medications Goal:Patient/caregive r will teach back high risk medication side effect and precaution education Completed patient educated on taking medication(s) as prescribed by provider. Do not stop medication or skip/alter doses without speaking with your provider. Discuss medication effectiveness or side effect concerns with your provider and home care team. Check blood sugars and keep log as ordered by provider. Monitor for side effects of hypoglycemia such as increased weakness or shaking, moist skin, sweating, fast heartbeat, dizziness, sudden hunger, confusion, pale skin, numbness in mouth or tongue, irritability, nervousness, unsteadiness, nightmares, bad dreams, and restless sleep. Checking your blood sugar routinely and eating a consistent diabetic diet can help regulate blood sugars and reduce side effects. Antiplatelet- educated on high risk medication Problem:High Risk Medications Goal:Patient/caregive r will teach back high risk medication side effect and precaution education Completed patient educated on taking medication(s) as prescribed by provider. Do not stop medication or alter doses without speaking with your provider. Discuss medication effectiveness or side effect concerns with your provider and home care team. Discuss all medications you are taking, even [id number] medicines, with your provider and pharmacist since many drugs can interact with antiplatelet medications. If you forget to take a dose, DO NOT take a double dose. Take the missed dose as soon as possible on the same day. DO NOT take a double dose the next day to make up for the missed dose. Watch for signs of abnormal or excessive bleeding and bruising (refer to Bleeding Precautions education). Call your health care provider right away if you suspect something is wrong. Instruct on ongoing discharge plan Problem:Discharge Goal:Manage discharge planning Completed Ongoing Discharge plan: Discharge plan discussed with patient including frequency and duration for home PT and plan for transition to: live independently at home without ongoing services. Instruct on importance of follow-up appts and continued monitoring with medical provider &/or chronic care clinic Problem:Discharge Goal:Manage discharge planning Completed Education provided on importance of compliance with follow-up appointment(s). Recommendations: patient/caregiver to follow up with scheduling appointment(s) for post-acute/primary care provider/chronic care clinic Physical Therapy Therapeutic Exercises Problem:PT Impaired muscle performance and/or ROM Goal:Improved Muscle Performance and/or ROM Completed patient instructed on strengthening exercises including Supine : GS,QS,, HIPADD, HIP ABD, HEEL SLIDES, SAQ, X 10 with verbal, tactile and written cues for technique . patient instructed to perform home exercise program twice a day which included hourly ambulation. Instruct on orthopedic precautions and weight bearing restrictions Description: Orthopedic precautions including left posterior hip: no hip flexion > 90 degrees, no adduction and no IR/ER rotation of involved extermity. Weight bearing restrictions include: WBAT of involved extremity. Problem:PT Orthopedic Condition Goal:Manage Orthopedic Condition Completed patient instructed on orthopedic precautions and weight bearing restrictions. Instruct on management of edema Problem:PT Orthopedic Condition Goal:Manage Orthopedic Condition Completed Instruct patient on management of edema including elevation of LLE above the level of the heart and ice. Physical therapy to perform surgical incision/wound management Description: Removal of post-op dressing on POD 7 ( 01/04/25). If no drainage is present, leave open to air; if drainage is present, cover with clean dressing and contact provider. Problem:PT Orthopedic Condition Goal:Manage Orthopedic Condition Completed Intervention completed this date. Incision clean , dry and healing well With pts permission a photo was uploaded for MD to review Instruct on self-management of post surgical and/or non-surgical orthopedic intervention Problem:PT Orthopedic Condition Goal:Manage Orthopedic Condition Completed patient instructed on managagement of orthopedic condition, staying well hydrated, eating foods with high protein, signs and symptoms of infection, signs and symptoms of DVT/PE, follow provider guidance for showering and instructed on when to call provider. Instruct and educate on knowledge deficits Problem:PT Learning Assessment Goal:Demonstrate understanding of education Completed patient verbalize and/or demonstrate understanding of physical therapy education including diabetic care management, orthopedic condition management, weight bearing precautions, surgical precautions, pain management, fall prevention strategies, home safety, functional activity and home exercise program. Education methods include: verbal cues and written instructions. Further education required to improve knowledge and compliance with orthopedic condition management, surgical precautions, pain management, fall prevention strategies, home safety, functional activity and home exercise program. [facility] Visit Details Visit Type -OT EVAL Discipline -Occupational Therapy Problems Problem Description Start Date Status Goals Interve ntions Medication Education Disciplines: Skilled Services 01/07/2025 Active 1 goal linked to scheduled/documen sara intervention 1 goal intervention scheduled/document ed in this visit OT Referral Disciplines: Skilled Services 01/07/2025 Resolved on 01/09/2025 1 goal linked to scheduled/documen sara intervention 1 goal intervention scheduled/document ed in this visit Physician Specific Parameters Disciplines: Skilled Services 01/07/2025 Active 1 goal linked to scheduled/documen sara intervention 1 goal intervention scheduled/document ed in this visit Risk for Falls Disciplines: Skilled Services 01/07/2025 Active 1 goal linked to scheduled/documen sara intervention 1 goal intervention scheduled/document ed in this visit Pain Disciplines: Skilled Services 01/07/2025 Active 1 goal linked to scheduled/documen sara intervention 1 goal intervention scheduled/document ed in this visit Discharge Disciplines: Skilled Services 01/07/2025 Active 1 goal linked to scheduled/documen sara intervention 1 goal intervention scheduled/document ed in this visit OT Learning Assessment Disciplines: OT 01/09/2025 Resolved on 01/09/2025 1 goal linked to scheduled/documen sara intervention 1 goal intervention scheduled/document ed in this visit OT ADLs/IADLs Disciplines: OT 01/09/2025 Resolved on 01/09/2025 1 goal linked to scheduled/documen sara intervention 1 goal intervention scheduled/document ed in this visit OT Functional Transfers Disciplines: OT 01/09/2025 Resolved on 01/09/2025 1 goal linked to scheduled/documen sara intervention 1 goal intervention scheduled/document ed in this visit Goals Goal Associated Problem Outcome Goal Met? Visit Notes Patient/caregiver will demonstrate ability to obtain, store, identify and administer ordered medications, keep accurate medication list in home, and adhere to medication schedule Description: Patient/caregiver will demonstrate ability to obtain, store, identify and administer ordered medications, keep accurate medication list in home, and adhere to medication schedule by 03/07/25. . Medication Education No Patient will be referred to additional discipline as needed OT Referral Completed Yes Patient to maintain parameters within physician-specified ranges throughout certification period Physician Specific Parameters No Manage Risk for falls Description: Patient/caregiver will verbalize knowledge of individualized fall prevention strategies by 03/07/25. . Risk for Falls No Manage Pain Description: Patient/caregiver will verbalize knowledge and understanding of appropriate techniques to control pain, including pain medication and non-pharmacological techniques. Patient will verbalize or demonstrate an acceptable level of pain as eviden mary by a pain score of <5/10 and improvement in ability to perform activities of daily living to be achieved by 03/07/25. . Pain No Manage discharge planning Description: Patient/caregiver will verbalize understanding of ongoing discharge plan provided related to disease management, arrangements for outpatient and/or community services, obtaining medications, supplies, and DME, as needed [facility] certification period. Discharge No Demonstrate understanding of education Description: Patient and/or caregiver will understand educational instruction to be achieved by 01/09/25. OT Learning Assessment Completed Yes Improved ADLs/IADLs performance Description: patient will verbalize understanding of instructions and demonstrate improved performance of feeding, grooming, upper body dressing, lower body dressing, bathing and toileting to independence as evidenced by improved Erin ADL Index score to at least 95/100 to be achieved by 01/09/25. OT ADLs/IADLs Completed Yes Improved Functional Transfers Description: patient will demonstrate safe transfers to/from toilet with Indep and shower/tub with supervision assistance and no verbal cues with use of DME to be achieved by 01/09/25. OT Functional Transfers Completed Yes Interventions Intervention Associated Problem/Goal Status Variance Visit Notes Medication Education Description: Evaluate/instruct patient/caregiver on obtaining, storing, identifying and administering ordered medications as well as keeping accurate medication list in the home and adhereing to medication schedule Problem:Medication Education Goal:Patient/caregive r will demonstrate ability to obtain, store, identify and administer ordered medications, keep accurate medication list in home, and adhere to medication schedule Completed Patient and Caregiver instructed on importance of keeping accurate medication list in home and adhering to medication schedule. OT evaluation and treatment Description: Evaluate and treat for the assessment of functional deficits and establishment of appropriate interventions and education to address: I/ADL training, functional transfers, DME/adaptive equipment recommendations, safety awareness, energy conservation and home safety and falls prevention recommendations. Problem:OT Referral Goal:Patient will be referred to additional discipline as needed Completed SPO2 Description: Notify Dr. Hough if pulse ox is <92% at rest. Problem:Physician Specific Parameters Goal:Patient to maintain parameters within physician-specified ranges throughout certification period Completed Instruct on individual fall risk factors and strategies to prevent falls and injuries caused by falls. Problem:Risk for Falls Goal:Manage Risk for falls Completed OT: Patient and Caregiver instructed on Eliminating Environmental Hazards: Keep pathways clear, Keep rooms and walkways well lit and Keep frequently used items within reach Instruct on pain and instruct on strategies to control pain Problem:Pain Goal:Manage Pain Completed patient and caregiver instructed on techniques to control pain including Pharmacological measures. Instruct on ongoing discharge plan Problem:Discharge Goal:Manage discharge planning Completed Ongoing Discharge plan: Discharge plan discussed with patient and caregiver including frequency and duration for home OT and plan for transition to: live independently at home without ongoing services. Instruct and educate on knowledge deficits Problem:OT Learning Assessment Goal:Demonstrate understanding of education Completed Education methods include: verbal cues and visual cues. Patient/Caregiver has received education to improve knowledge and compliance with fall prevention strategies, orthopedic condition management, pain management, post surgical precautions, home safety, infection control precautions, functional adl/iadl activity, functional transfers and discharge planning. ADL/IADLs Training Problem:OT ADLs/IADLs Goal:Improved ADLs/IADLs performance Completed Instruct patient on compensatory strategies, adaptive equipment/DME use and safety and falls prevention and machine or machinery mechanic, sock aide, handled sponge and handheld shower use to facilite improved performance of feeding, grooming, upper body dressing, lower body dressing, bathing and toileting hygiene with independence Transfer Training Problem:OT Functional Transfers Goal:Improved Functional Transfers Completed Instruct patient on safe transfers and proper techniques including slow positional changes to perform to and from toilet with Indep and shower with sup assistance and verbal cues for safety. education and training on the following adaptive equipment/durable medical equipment:grab bar(s) and shower chair. [facility] Visit Details Visit Type -AUTO DAMAGE TRAINEE ROUTINE Discipline -Physical Therapy Problems Problem Description Start Date Status Goals Interve ntions Medication Education Disciplines: Skilled Services 01/07/2025 Active 1 goal linked to scheduled/document ed intervention 1 goal intervention scheduled/document ed in this visit Physician Specific Parameters Disciplines: Skilled Services 01/07/2025 Active 1 goal linked to scheduled/document ed intervention 1 goal intervention scheduled/document ed in this visit Risk for Falls Disciplines: Skilled Services 01/07/2025 Active 1 goal linked to scheduled/document ed intervention 1 goal intervention scheduled/document ed in this visit Pain Disciplines: Skilled Services 01/07/2025 Active 1 goal linked to scheduled/document ed intervention 1 goal intervention scheduled/document ed in this visit Discharge Disciplines: Skilled Services 01/07/2025 Active 1 goal linked to scheduled/document ed intervention 1 goal intervention scheduled/document ed in this visit PT Impaired muscle performance and/or ROM Disciplines: PT 01/07/2025 Active 1 goal linked to scheduled/document ed intervention 1 goal intervention scheduled/document ed in this visit PT Impaired gait Disciplines: PT 01/07/2025 Active 1 goal linked to scheduled/document ed intervention 1 goal intervention scheduled/document ed in this visit PT Impaired balance Disciplines: PT 01/07/2025 Active 1 goal linked to scheduled/document ed intervention 1 goal intervention scheduled/document ed in this visit PT Orthopedic Condition Disciplines: PT 01/07/2025 Active 1 goal linked to scheduled/document ed intervention 3 goal interventions scheduled/document ed in this visit PT Learning Assessment Disciplines: PT 01/07/2025 Active 1 goal linked to scheduled/document ed intervention 1 goal intervention scheduled/document ed in this visit Goals Goal Associated Problem Outcome Goal Met? Visit Notes Patient/caregiver will demonstrate ability to obtain, store, identify and administer ordered medications, keep accurate medication list in home, and adhere to medication schedule Description: Patient/caregiver will demonstrate ability to obtain, store, identify and administer ordered medications, keep accurate medication list in home, and adhere to medication schedule by 03/07/25. . Medication Education No Patient to maintain parameters within physician-specified ranges throughout certification period Physician Specific Parameters No Manage Risk for falls Description: Patient/caregiver will verbalize knowledge of individualized fall prevention strategies by 03/07/25. . Risk for Falls No Manage Pain Description: Patient/caregiver will verbalize knowledge and understanding of appropriate techniques to control pain, including pain medication and non-pharmacological techniques. Patient will verbalize or demonstrate an acceptable level of pain as eviden mary by a pain score of <5/10 and improvement in ability to perform activities of daily living to be achieved by 03/07/25. . Pain No Manage discharge planning Description: Patient/caregiver will verbalize understanding of ongoing discharge plan provided related to disease management, arrangements for outpatient and/or community services, obtaining medications, supplies, and DME, as needed [facility] certification period. Discharge No Improved Muscle Performance and/or ROM Description: LTG: Patient will demonstrate improved muscle performance to meet functional goals as evidenced by ability to tolerate 15 minutes of therapeutic activity, to be achieved by 01/31/25 . STG: Patient and/or caregiver will verbalize/demonstrate independence with home exercise program, to improve functional mobility, to be achieved by 01/17/25. PT Impaired muscle performance and/or ROM No Improved Gait Description: LTG: Patient will demonstrate improved gait ability as evidenced by ambulation 250 feet with single point cane independently with AD, to return to safe household and community ambulation, in order to return to plf, to be achieved by 01/31/25 . PT Impaired gait No Improved Balance Description: LTG: Patient will demonstrate improved standing balance to meet functional goals as evidenced by TUG score of <20 to be achieved by 01/31/25 PT Impaired balance No Manage Orthopedic Condition Description: Improve patient and/or caregiver understanding of post surgical and/or non-surgical orthopedic intervention management as evidenced by patient and/or caregiver able to verbalize, demonstrate, and teach back instruction, to be achieved by 01/31/25 . PT Orthopedic Condition No Demonstrate understanding of education Description: Patient and/or caregiver will understand educational instruction to be achieved by 01/31/25 . PT Learning Assessment No Interventions Intervention Associated Problem/Goal Status Variance Visit Notes Medication Education Description: Evaluate/instruct patient/caregiver on obtaining, storing, identifying and administering ordered medications as well as keeping accurate medication list in the home and adhereing to medication schedule Problem:Medication Education Goal:Patient/caregive r will demonstrate ability to obtain, store, identify and administer ordered medications, keep accurate medication list in home, and adhere to medication schedule Completed Patient and Caregiver instructed on importance of keeping accurate medication list in home. SPO2 Description: Notify Dr. Hough if pulse ox is <92% at rest. Problem:Physician Specific Parameters Goal:Patient to maintain parameters within physician-specified ranges throughout certification period Completed Instruct on individual fall risk factors and strategies to prevent falls and injuries caused by falls. Problem:Risk for Falls Goal:Manage Risk for falls Completed PT: Patient and Caregiver instructed on Managing Impaired Functional Mobility: Use assistive device(s): front wheeled walker and single point cane Instruct on pain and instruct on strategies to control pain Problem:Pain Goal:Manage Pain Completed patient and caregiver instructed on techniques to control pain including Pharmacological measures and Non-Pharmacological measures; positioning/elevation and use of thermal modalities, apply ice to affected area for the following prescribed frequency: prn. Instruct on ongoing discharge plan Problem:Discharge Goal:Manage discharge planning Completed Ongoing Discharge plan: Discharge plan discussed with patient and caregiver including frequency and duration for home PT and plan for transition to: live independently at home without ongoing services. Physical Therapy Therapeutic Exercises Problem:PT Impaired muscle performance and/or ROM Goal:Improved Muscle Performance and/or ROM Completed patient and caregiver instructed on strengthening exercises including ap,qs,gs,hio abd and add, saq and heel slides, standing heel raises and hams curl x's 10 each seated faq x's10 with verbal, tactile, visual and written cues for form. patient instructed to perform home exercise program twice a day which included above ex. Physical Therapy Gait Training Problem:PT Impaired gait Goal:Improved Gait Completed Gait training and instruction to patient on safe ambulation with front wheeled walker and single point cane for 3x'50 feet with supervision, with verbal and visual cues for corrections of gait deviations including correct cane use. Physical Therapy Balance Training Problem:PT Impaired balance Goal:Improved Balance Completed Developed, implemented, and instructed patient on standing balance exercises including standing ex. Instruct on orthopedic precautions and weight bearing restrictions Description: Orthopedic precautions including left posterior hip: no hip flexion > 90 degrees, no adduction and no IR/ER rotation of involved extermity. Weight bearing restrictions include: WBAT of involved extremity. Problem:PT Orthopedic Condition Goal:Manage Orthopedic Condition Completed patient and caregiver instructed on orthopedic precautions. Instruct on management of edema Problem:PT Orthopedic Condition Goal:Manage Orthopedic Condition Completed Instruct patient and caregiver on management of edema including elevation of LLE above the level of the heart and ice. Instruct on self-management of post surgical and/or non-surgical orthopedic intervention Problem:PT Orthopedic Condition Goal:Manage Orthopedic Condition Completed patient and caregiver instructed on signs and symptoms of infection, signs and symptoms of DVT/PE, instructed on when to call provider and instructed on when to call 911. Instruct and educate on knowledge deficits Problem:PT Learning Assessment Goal:Demonstrate understanding of education Completed patient and caregiver verbalize and/or demonstrate understanding of physical therapy education including surgical precautions, pain management and home exercise program. Education methods include: verbal cues, tactile cues, written instructions and visual cues. Further education required to improve knowledge and compliance with home exercise program. [facility] Visit Details Visit Type -AUTO DAMAGE TRAINEE ROUTINE Discipline -Physical Therapy Problems Problem Description Start Date Status Goals Interve ntions Medication Education Disciplines: Skilled Services 01/07/2025 Active 1 goal linked to scheduled/document ed intervention 1 goal intervention scheduled/document ed in this visit Physician Specific Parameters Disciplines: Skilled Services 01/07/2025 Active 1 goal linked to scheduled/document ed intervention 1 goal intervention scheduled/document ed in this visit Risk for Falls Disciplines: Skilled Services 01/07/2025 Active 1 goal linked to scheduled/document ed intervention 1 goal intervention scheduled/document ed in this visit Pain Disciplines: Skilled Services 01/07/2025 Active 1 goal linked to scheduled/document ed intervention 1 goal intervention scheduled/document ed in this visit High Risk Medications Disciplines: Skilled Services 01/07/2025 Active 1 goal linked to scheduled/document ed intervention 1 goal intervention scheduled/document ed in this visit Discharge Disciplines: Skilled Services 01/07/2025 Active 1 goal linked to scheduled/document ed intervention 1 goal intervention scheduled/document ed in this visit PT Impaired muscle performance and/or ROM Disciplines: PT 01/07/2025 Active 1 goal linked to scheduled/document ed intervention 1 goal intervention scheduled/document ed in this visit PT Impaired gait Disciplines: PT 01/07/2025 Active 2 goals linked to scheduled/document ed interventions 2 goal interventions scheduled/document ed in this visit PT Impaired balance Disciplines: PT 01/07/2025 Active 1 goal linked to scheduled/document ed intervention 1 goal intervention scheduled/document ed in this visit PT Orthopedic Condition Disciplines: PT 01/07/2025 Active 1 goal linked to scheduled/document ed intervention 3 goal interventions scheduled/document ed in this visit PT Learning Assessment Disciplines: PT 01/07/2025 Active 1 goal linked to scheduled/document ed intervention 1 goal intervention scheduled/document ed in this visit Goals Goal Associated Problem Outcome Goal Met? Visit Notes Patient/caregiver will demonstrate ability to obtain, store, identify and administer ordered medications, keep accurate medication list in home, and adhere to medication schedule Description: Patient/caregiver will demonstrate ability to obtain, store, identify and administer ordered medications, keep accurate medication list in home, and adhere to medication schedule by 03/07/25. . Medication Education No Patient to maintain parameters within physician-specified ranges throughout certification period Physician Specific Parameters No Manage Risk for falls Description: Patient/caregiver will verbalize knowledge of individualized fall prevention strategies by 03/07/25. . Risk for Falls No Manage Pain Description: Patient/caregiver will verbalize knowledge and understanding of appropriate techniques to control pain, including pain medication and non-pharmacological techniques. Patient will verbalize or demonstrate an acceptable level of pain as eviden mary by a pain score of <5/10 and improvement in ability to perform activities of daily living to be achieved by 03/07/25. . Pain No Patient/caregiver will teach back high risk medication side effect and precaution education Description: STG Patient/caregiver will verbalize understanding of high risk medication side effects and precautions to be achieved by 01/07/25. LTG Patient/caregiver will continue to verbalize understanding of high risk medication side effects and precautions throughout certification period. High Risk Medications No Manage discharge planning Description: Patient/caregiver will verbalize understanding of ongoing discharge plan provided related to disease management, arrangements for outpatient and/or community services, obtaining medications, supplies, and DME, as [facility]. Discharge No Improved Muscle Performance and/or ROM Description: LTG: Patient will demonstrate improved muscle performance to meet functional goals as evidenced by ability to tolerate 15 minutes of therapeutic activity, to be achieved by 01/31/25 . STG: Patient and/or caregiver will verbalize/demonstrate independence with home exercise program, to improve functional mobility, to be achieved by 01/17/25. PT Impaired muscle performance and/or ROM No Improved Stair Climbing Description: STG:: Patient will demonstrate improved stair negotiation as evidenced by ascend/descend 2 steps with walker or cane independently, to be achieved by 01/17/25. PT Impaired gait No Improved Gait Description: LTG: Patient will demonstrate improved gait ability as evidenced by ambulation 250 feet with single point cane independently with AD, to return to safe household and community ambulation, in order to return to [facility], to be achieved by 01/31/25 . PT Impaired gait No Improved Balance Description: LTG: Patient will demonstrate improved standing balance to meet functional goals as evidenced by TUG score of <20 to be achieved by 01/31/25 PT Impaired balance No Manage Orthopedic Condition Description: Improve patient and/or caregiver understanding of post surgical and/or non-surgical orthopedic intervention management as evidenced by patient and/or caregiver able to verbalize, demonstrate, and teach back instruction, to be achieved by 01/31/25 . PT Orthopedic Condition No Demonstrate understanding of education Description: Patient and/or caregiver will understand educational instruction to be achieved by 01/31/25 . PT Learning Assessment No Interventions Intervention Associated Problem/Goal Status Variance Visit Notes Medication Education Description: Evaluate/instruct patient/caregiver on obtaining, storing, identifying and administering ordered medications as well as keeping accurate medication list in the home and adhereing to medication schedule Problem:Medication Education Goal:Patient/caregive r will demonstrate ability to obtain, store, identify and administer ordered medications, keep accurate medication list in home, and adhere to medication schedule Completed Patient instructed on importance of keeping accurate medication list in home. SPO2 Description: Notify Dr. Hough if pulse ox is <92% at rest. Problem:Physician Specific Parameters Goal:Patient to maintain parameters within physician-specified ranges throughout certification period Completed Instruct on individual fall risk factors and strategies to prevent falls and injuries caused by falls. Problem:Risk for Falls Goal:Manage Risk for falls Completed PT: Patient instructed on Managing Impaired Functional Mobility: Use assistive device(s): single point cane Instruct on pain and instruct on strategies to control pain Problem:Pain Goal:Manage Pain Completed patient instructed on techniques to control pain including Non-Pharmacological measures; positioning/elevation and use of thermal modalities, apply ice to affected area for the following prescribed frequency: prn. Antiplatelet- educated on high risk medication Problem:High Risk Medications Goal:Patient/caregive r will teach back high risk medication side effect and precaution education Completed patient educated on taking medication(s) as prescribed by provider. Do not stop medication or alter doses without speaking with your provider. Discuss medication effectiveness or side effect concerns with your provider and home care team. Discuss all medications you are taking, even [id number] medicines, with your provider and pharmacist since many drugs can interact with antiplatelet medications. If you forget to take a dose, DO NOT take a double dose. Take the missed dose as soon as possible on the same day. DO NOT take a double dose the next day to make up for the missed dose. Watch for signs of abnormal or excessive bleeding and bruising (refer to Bleeding Precautions education). Call your health care provider right away if you suspect something is wrong. Instruct on ongoing discharge plan Problem:Discharge Goal:Manage discharge planning Completed Ongoing Discharge plan: Discharge plan discussed with patient including frequency and duration for home PT and plan for transition to: live independently at home without ongoing services. Physical Therapy Therapeutic Exercises Problem:PT Impaired muscle performance and/or ROM Goal:Improved Muscle Performance and/or ROM Completed patient instructed on strengthening exercises including carey standing heel raises, hip abd,hams curls and 1/4 squats, seated faq x's 15 with verbal, visual and written cues for form and posture. patient instructed to perform home exercise program twice a day which included above ex. Physical Therapy Stair Training Problem:PT Impaired gait Goal:Improved Stair Climbing Completed Stair training and instruction to patient on safe stair climbing, ascend/descend 3 steps, with environmental support and cane with stand by assist and verbal cues for safety. Physical Therapy Gait Training Problem:PT Impaired gait Goal:Improved Gait Completed Gait training and instruction to patient on safe ambulation with single point cane for 150 feet with stand by assist, with verbal cues for corrections of gait deviations including safetyon uneven terrain. Physical Therapy Balance Training Problem:PT Impaired balance Goal:Improved Balance Completed Developed, implemented, and instructed patient on standing balance exercises including ambulation outdoors, uneven terrain. Instruct on orthopedic precautions and weight bearing restrictions Description: Orthopedic precautions including left posterior hip: no hip flexion > 90 degrees, no adduction and no IR/ER rotation of involved extermity. Weight bearing restrictions include: WBAT of involved extremity. Problem:PT Orthopedic Condition Goal:Manage Orthopedic Condition Completed patient instructed on orthopedic precautions. Instruct on management of edema Problem:PT Orthopedic Condition Goal:Manage Orthopedic Condition Completed Instruct patient and caregiver on management of edema including elevation of LLE above the level of the heart and ice. Instruct on self-management of post surgical and/or non-surgical orthopedic intervention Problem:PT Orthopedic Condition Goal:Manage Orthopedic Condition Completed patient instructed on signs and symptoms of infection, signs and symptoms of DVT/PE, instructed on when to call provider and instructed on when to call 911. Instruct and educate on knowledge deficits Problem:PT Learning Assessment Goal:Demonstrate understanding of education Completed patient verbalize and/or demonstrate understanding of physical therapy education including surgical precautions, functional activity and home exercise program. Education methods include: verbal cues and visual cues. Further education required to improve knowledge and compliance with home exercise program. [facility] Visit Details Visit Type -AUTO DAMAGE TRAINEE ROUTINE Discipline -Physical Therapy Problems Problem Description Start Date Status Goals Interve ntions Medication Education Disciplines: Skilled Services 01/07/2025 Active 1 goal linked to scheduled/document ed intervention 1 goal intervention scheduled/document ed in this visit Physician Specific Parameters Disciplines: Skilled Services 01/07/2025 Active 1 goal linked to scheduled/document ed intervention 1 goal intervention scheduled/document ed in this visit PT Impaired muscle performance and/or ROM Disciplines: PT 01/07/2025 Active 1 goal linked to scheduled/document ed intervention 1 goal intervention scheduled/document ed in this visit PT Impaired gait Disciplines: PT 01/07/2025 Active 1 goal linked to scheduled/document ed intervention 1 goal intervention scheduled/document ed in this visit PT Impaired balance Disciplines: PT 01/07/2025 Active 1 goal linked to scheduled/document ed intervention 1 goal intervention scheduled/document ed in this visit PT Orthopedic Condition Disciplines: PT 01/07/2025 Active 1 goal linked to scheduled/document ed intervention 3 goal interventions scheduled/document ed in this visit PT Learning Assessment Disciplines: PT 01/07/2025 Active 1 goal linked to scheduled/document ed intervention 1 goal intervention scheduled/document ed in this visit Goals Goal Associated Problem Outcome Goal Met? Visit Notes Patient/caregiver will demonstrate ability to obtain, store, identify and administer ordered medications, keep accurate medication list in home, and adhere to medication schedule Description: Patient/caregiver will demonstrate ability to obtain, store, identify and administer ordered medications, keep accurate medication list in home, and adhere to medication schedule by 03/07/25. . Medication Education No Patient to maintain parameters within physician-specified ranges throughout certification period Physician Specific Parameters No Improved Muscle Performance and/or ROM Description: LTG: Patient will demonstrate improved muscle performance to meet functional goals as evidenced by ability to tolerate 15 minutes of therapeutic activity, to be achieved by 01/31/25 . STG: Patient and/or caregiver will verbalize/demonstrate independence with home exercise program, to improve functional mobility, to be achieved by 01/17/25. PT Impaired muscle performance and/or ROM No Improved Gait Description: LTG: Patient will demonstrate improved gait ability as evidenced by ambulation 250 feet with single point cane independently with AD, to return to safe household and community ambulation, in order to return to plf, to be achieved by 01/31/25 . PT Impaired gait No Improved Balance Description: LTG: Patient will demonstrate improved standing balance to meet functional goals as evidenced by TUG score of <20 to be achieved by 01/31/25 PT Impaired balance No Manage Orthopedic Condition Description: Improve patient and/or caregiver understanding of post surgical and/or non-surgical orthopedic intervention management as evidenced by patient and/or caregiver able to verbalize, demonstrate, and teach back instruction, to be achieved by 01/31/25 . PT Orthopedic Condition No Demonstrate understanding of education Description: Patient and/or caregiver will understand educational instruction to be achieved by 01/31/25 . PT Learning Assessment No Interventions Intervention Associated Problem/Goal Status Variance Visit Notes Medication Education Description: Evaluate/instruct patient/caregiver on obtaining, storing, identifying and administering ordered medications as well as keeping accurate medication list in the home and adhereing to medication schedule Problem:Medication Education Goal:Patient/caregive r will demonstrate ability to obtain, store, identify and administer ordered medications, keep accurate medication list in home, and adhere to medication schedule Completed Patient instructed on importance of keeping accurate medication list in home. SPO2 Description: Notify Dr. Hough if pulse ox is <92% at rest. Problem:Physician Specific Parameters Goal:Patient to maintain parameters within physician-specified ranges throughout certification period Completed Physical Therapy Therapeutic Exercises Problem:PT Impaired muscle performance and/or ROM Goal:Improved Muscle Performance and/or ROM Completed patient instructed on strengthening exercises including carey standong heel riases, hip abd,hams curls and 1/4 squats x's 10 each. step ups x's 10 each. seated faq x's 10 with verbal, visual and written cues for form. patient instructed to perform home exercise program twice a day which included above ex. Physical Therapy Gait Training Problem:PT Impaired gait Goal:Improved Gait Completed Gait training and instruction to patient on safe ambulation with no device for 2x's75 feet with supervision, with verbal cues for corrections of gait deviations including posture. Physical Therapy Balance Training Problem:PT Impaired balance Goal:Improved Balance Completed Developed, implemented, and instructed patient on standing balance exercises including carey standing exercises and gait training w/o AD. Instruct on orthopedic precautions and weight bearing restrictions Description: Orthopedic precautions including left posterior hip: no hip flexion > 90 degrees, no adduction and no IR/ER rotation of involved extermity. Weight bearing restrictions include: WBAT of involved extremity. Problem:PT Orthopedic Condition Goal:Manage Orthopedic Condition Completed patient instructed on orthopedic precautions. Instruct on management of edema Problem:PT Orthopedic Condition Goal:Manage Orthopedic Condition Completed Instruct patient on management of edema including elevation of LLE above the level of the heart and ice. Instruct on self-management of post surgical and/or non-surgical orthopedic intervention Problem:PT Orthopedic Condition Goal:Manage Orthopedic Condition Completed patient instructed on signs and symptoms of infection, signs and symptoms of DVT/PE, instructed on when to call provider and instructed on when to call 911. Instruct and educate on knowledge deficits Problem:PT Learning Assessment Goal:Demonstrate understanding of education Completed patient verbalize and/or demonstrate understanding of physical therapy education including home exercise program. Education methods include: verbal cues and visual cues. Further education required to improve knowledge and compliance with home exercise program. documented in this encounter [facility] home Plan of care note* Visit Details Visit Type -AUTO DAMAGE TRAINEE ROUTINE Discipline -Physical Therapy Problems Problem Description Start Date Status Goals Interve ntions Medication Education Disciplines: Skilled Services 01/07/2025 Active 1 goal linked to scheduled/document ed intervention 1 goal intervention scheduled/document ed in this visit Physician Specific Parameters Disciplines: Skilled Services 01/07/2025 Active 1 goal linked to scheduled/document ed intervention 1 goal intervention scheduled/document ed in this visit Risk for Falls Disciplines: Skilled Services 01/07/2025 Active 1 goal linked to scheduled/document ed intervention 1 goal intervention scheduled/document ed in this visit Pain Disciplines: Skilled Services 01/07/2025 Active 1 goal linked to scheduled/document ed intervention 1 goal intervention scheduled/document ed in this visit Discharge Disciplines: Skilled Services 01/07/2025 Active 1 goal linked to scheduled/document ed intervention 2 goal interventions scheduled/document ed in this visit PT Impaired muscle performance and/or ROM Disciplines: PT 01/07/2025 Active 1 goal linked to scheduled/document ed intervention 1 goal intervention scheduled/document ed in this visit PT Impaired gait Disciplines: PT 01/07/2025 Active 2 goals linked to scheduled/document ed interventions 2 goal interventions scheduled/document ed in this visit PT Impaired balance Disciplines: PT 01/07/2025 Active 1 goal linked to scheduled/document ed intervention 1 goal intervention scheduled/document ed in this visit PT Orthopedic Condition Disciplines: PT 01/07/2025 Active 1 goal linked to scheduled/document ed intervention 3 goal interventions scheduled/document ed in this visit PT Learning Assessment Disciplines: PT 01/07/2025 Active 1 goal linked to scheduled/document ed intervention 1 goal intervention scheduled/document ed in this visit Goals Goal Associated Problem Outcome Goal Met? Visit Notes Patient/caregiver will demonstrate ability to obtain, store, identify and administer ordered medications, keep accurate medication list in home, and adhere to medication schedule Description: Patient/caregiver will demonstrate ability to obtain, store, identify and administer ordered medications, keep accurate medication list in home, and adhere to medication schedule by 03/07/25. . Medication Education No Patient to maintain parameters within physician-specified ranges throughout certification period Physician Specific Parameters No Manage Risk for falls Description: Patient/caregiver will verbalize knowledge of individualized fall prevention strategies by 03/07/25. . Risk for Falls No Manage Pain Description: Patient/caregiver will verbalize knowledge and understanding of appropriate techniques to control pain, including pain medication and non-pharmacological techniques. Patient will verbalize or demonstrate an acceptable level of pain as eviden mary by a pain score of <5/10 and improvement in ability to perform activities of daily living to be achieved by 03/07/25. . Pain No Manage discharge planning Description: Patient/caregiver will verbalize understanding of ongoing discharge plan provided related to disease management, arrangements for outpatient and/or community services, obtaining medications, supplies, and DME, as needed [facility]. Discharge No Improved Muscle Performance and/or ROM Description: LTG: Patient will demonstrate improved muscle performance to meet functional goals as evidenced by ability to tolerate 15 minutes of therapeutic activity, to be achieved by 01/31/25 . STG: Patient and/or caregiver will verbalize/demonstrate independence with home exercise program, to improve functional mobility, to be achieved by 01/17/25. PT Impaired muscle performance and/or ROM No Improved Stair Climbing Description: STG:: Patient will demonstrate improved stair negotiation as evidenced by ascend/descend 2 steps with walker or cane independently, to be achieved by 01/17/25. PT Impaired gait No Improved Gait Description: LTG: Patient will demonstrate improved gait ability as evidenced by ambulation 250 feet with single point cane independently with AD, to return to safe household and community ambulation, in order to return to plf, to be achieved by 01/31/25 . PT Impaired gait No Improved Balance Description: LTG: Patient will demonstrate improved standing balance to meet functional goals as evidenced by TUG score of <20 to be achieved by 01/31/25 PT Impaired balance No Manage Orthopedic Condition Description: Improve patient and/or caregiver understanding of post surgical and/or non-surgical orthopedic intervention management as evidenced by patient and/or caregiver able to verbalize, demonstrate, and teach back instruction, to be achieved by 01/31/25 . PT Orthopedic Condition No Demonstrate understanding of education Description: Patient and/or caregiver will understand educational instruction to be achieved by 01/31/25 . PT Learning Assessment No Interventions Intervention Associated Problem/Goal Status Variance Visit Notes Medication Education Description: Evaluate/instruct patient/caregiver on obtaining, storing, identifying and administering ordered medications as well as keeping accurate medication list in the home and adhereing to medication schedule Problem:Medication Education Goal:Patient/caregive r will demonstrate ability to obtain, store, identify and administer ordered medications, keep accurate medication list in home, and adhere to medication schedule Completed Patient instructed on importance of keeping accurate medication list in home. SPO2 Description: Notify Dr. Hough if pulse ox is <92% at rest. Problem:Physician Specific Parameters Goal:Patient to maintain parameters within physician-specified ranges throughout certification period Completed Instruct on individual fall risk factors and strategies to prevent falls and injuries caused by falls. Problem:Risk for Falls Goal:Manage Risk for falls Completed PT: Patient instructed on Managing Impaired Functional Mobility: Use assistive device(s): single point cane for outdoor, uneven surfaces Instruct on pain and instruct on strategies to control pain Problem:Pain Goal:Manage Pain Completed patient instructed on techniques to control pain including Non-Pharmacological measures; rest and use of thermal modalities, apply ice to affected area for the following prescribed frequency: prn. Deliver [facility] Problem:Discharge Goal:Manage discharge planning Completed Delivered [facility] on 01/20/25 for discharge date of 01/27/25. Instruct on ongoing discharge plan Problem:Discharge Goal:Manage discharge planning Completed Ongoing Discharge plan: Discharge plan discussed with patient including frequency and duration for home PT and plan for transition to: live independently at home without ongoing services. Physical Therapy Therapeutic Exercises Problem:PT Impaired muscle performance and/or ROM Goal:Improved Muscle Performance and/or ROM Completed patient instructed on strengthening exercises including carey heel toe raises, hip abd and flexion, hams curls and 1/4 squats x's 15 each. step ups x's 10 each with verbal cues for pace. patient instructed to perform home exercise program twice a day which included above ex. Physical Therapy Stair Training Problem:PT Impaired gait Goal:Improved Stair Climbing Completed Stair training and instruction to patient on safe stair climbing, ascend/descend 12 steps, without railing and with cane and environmental support with supervision and verbal cues for safety. Physical Therapy Gait Training Problem:PT Impaired gait Goal:Improved Gait Completed Gait training and instruction to patient on safe ambulation with single point cane for 300 feet outdoors with supervision, with verbal cues for corrections of gait deviations including safety. Physical Therapy Balance Training Problem:PT Impaired balance Goal:Improved Balance Completed Developed, implemented, and instructed patient on standing balance exercises including SLS, outdoor ambulation on uneven terrain w/ SC. Instruct on orthopedic precautions and weight bearing restrictions Description: Orthopedic precautions including left posterior hip: no hip flexion > 90 degrees, no adduction and no IR/ER rotation of involved extermity. Weight bearing restrictions include: WBAT of involved extremity. Problem:PT Orthopedic Condition Goal:Manage Orthopedic Condition Completed patient instructed on orthopedic precautions. Instruct on management of edema Problem:PT Orthopedic Condition Goal:Manage Orthopedic Condition Completed Instruct patient on management of edema including ice. Instruct on self-management of post surgical and/or non-surgical orthopedic intervention Problem:PT Orthopedic Condition Goal:Manage Orthopedic Condition Completed patient instructed on signs and symptoms of infection, signs and symptoms of DVT/PE, instructed on when to call provider and instructed on when to call 911. Instruct and educate on knowledge deficits Problem:PT Learning Assessment Goal:Demonstrate understanding of education Completed patient verbalize and/or demonstrate understanding of physical therapy education including surgical precautions, functional activity and home exercise program. Education methods include: verbal cues. Further education required to improve knowledge and compliance with home exercise program. documented in this encounter [facility] home Plan of care note* Visit Details Visit Type -PT AGENCY JUAN [employer]UEL LOWRY Discipline -Physical Therapy Problems Problem Description Start Date Status Goals Interve ntions Medication Education Disciplines: Skilled Services 01/07/2025 Resolved on 01/27/2025 1 goal linked to scheduled/document ed intervention Physician Specific Parameters Disciplines: Skilled Services 01/07/2025 Resolved on 01/27/2025 1 goal linked to scheduled/document ed intervention 1 goal intervention scheduled/document ed in this visit Risk for Falls Disciplines: Skilled Services 01/07/2025 Resolved on 01/27/2025 1 goal linked to scheduled/document ed intervention 1 goal intervention scheduled/document ed in this visit Pain Disciplines: Skilled Services 01/07/2025 Resolved on 01/27/2025 1 goal linked to scheduled/document ed intervention 1 goal intervention scheduled/document ed in this visit High Risk Medications Disciplines: Skilled Services 01/07/2025 Resolved on 01/27/2025 1 goal linked to scheduled/document ed intervention Discharge Disciplines: Skilled Services 01/07/2025 Resolved on 01/27/2025 1 goal linked to scheduled/document ed intervention PT Impaired muscle performance and/or ROM Disciplines: PT 01/07/2025 Resolved on 01/27/2025 1 goal linked to scheduled/document ed intervention 1 goal intervention scheduled/document ed in this visit PT Impaired mobility Disciplines: PT 01/07/2025 Resolved on 01/27/2025 2 goals linked to scheduled/document ed interventions 2 goal interventions scheduled/document ed in this visit PT Impaired gait Disciplines: PT 01/07/2025 Resolved on 01/27/2025 2 goals linked to scheduled/document ed interventions 2 goal interventions scheduled/document ed in this visit PT Impaired balance Disciplines: PT 01/07/2025 Resolved on 01/27/2025 1 goal linked to scheduled/document ed intervention 1 goal intervention scheduled/document ed in this visit PT Orthopedic Condition Disciplines: PT 01/07/2025 Resolved on 01/27/2025 1 goal linked to scheduled/document ed intervention 3 goal interventions scheduled/document ed in this visit PT Learning Assessment Disciplines: PT 01/07/2025 Resolved on 01/27/2025 1 goal linked to scheduled/document ed intervention 1 goal intervention scheduled/document ed in this visit Goals Goal Associated Problem Outcome Goal Met? Visit Notes Patient/caregiver will demonstrate ability to obtain, store, identify and administer ordered medications, keep accurate medication list in home, and adhere to medication schedule Description: Patient/caregiver will demonstrate ability to obtain, store, identify and administer ordered medications, keep accurate medication list in home, and adhere to medication schedule by 03/07/25. . Medication Education Completed Yes Patient to maintain parameters within physician-specified ranges throughout certification period Physician Specific Parameters Completed Yes Manage Risk for falls Description: Patient/caregiver will verbalize knowledge of individualized fall prevention strategies by 03/07/25. . Risk for Falls Completed Yes Manage Pain Description: Patient/caregiver will verbalize knowledge and understanding of appropriate techniques to control pain, including pain medication and non-pharmacological techniques. Patient will verbalize or demonstrate an acceptable level of pain as eviden mary by a pain score of <5/10 and improvement in ability to perform activities of daily living to be achieved by 03/07/25. . Pain Completed Yes Patient/caregiver will teach back high risk medication side effect and precaution education Description: STG Patient/caregiver will verbalize understanding of high risk medication side effects and precautions to be achieved by 01/07/25. LTG Patient/caregiver will continue to verbalize understanding of high risk medication side effects and precautions throughout certification period. High Risk Medications Completed Yes Manage discharge planning Description: Patient/caregiver will verbalize understanding of ongoing discharge plan provided related to disease management, arrangements for outpatient and/or community services, obtaining medications, supplies, and DME, as needed [facility] certification period. Discharge Completed Yes Improved Muscle Performance and/or ROM Description: LTG: Patient will demonstrate improved muscle performance to meet functional goals as evidenced by ability to tolerate 15 minutes of therapeutic activity, to be achieved by 01/31/25 . STG: Patient and/or caregiver will verbalize/demonstrate independence with home exercise program, to improve functional mobility, to be achieved by 01/17/25. PT Impaired muscle performance and/or ROM Completed Yes Improved Transfers Description: STG: Patient will demonstrate safe transfers to/from bed, chair, couch and car independently with AD, to be achieved by 01/24/25. PT Impaired mobility Completed Yes Improved Bed Mobility Description: STG: Patient will demonstrate improved ability to position self, supine <> sit and bed mobility independently to be achieved by 01/17/25. PT Impaired mobility Completed Yes Improved Stair Climbing Description: STG:: Patient will demonstrate improved stair negotiation as evidenced by ascend/descend 2 steps with walker or cane independently, to be achieved by 01/17/25. PT Impaired gait Completed Yes Improved Gait Description: LTG: Patient will demonstrate improved gait ability as evidenced by ambulation 250 feet with single point cane independently with AD, to return to safe household and community ambulation, in order to return to f, to be achieved by 01/31/25 . PT Impaired gait Completed Yes Improved Balance Description: LTG: Patient will demonstrate improved standing balance to meet functional goals as evidenced by TUG score of <20 to be achieved by 01/31/25 PT Impaired balance Completed Yes Manage Orthopedic Condition Description: Improve patient and/or caregiver understanding of post surgical and/or non-surgical orthopedic intervention management as evidenced by patient and/or caregiver able to verbalize, demonstrate, and teach back instruction, to be achieved by 01/31/25 . PT Orthopedic Condition Completed Yes Demonstrate understanding of education Description: Patient and/or caregiver will understand educational instruction to be achieved by 01/31/25 . PT Learning Assessment Completed Yes Interventions Intervention Associated Problem/Goal Status Variance Visit Notes SPO2 Description: Notify Dr. Hough if pulse ox is <92% at rest. Problem:Physician Specific Parameters Goal:Patient to maintain parameters within physician-specified ranges throughout certification period Completed Instruct on individual fall risk factors and strategies to prevent falls and injuries caused by falls. Problem:Risk for Falls Goal:Manage Risk for falls Completed PT: Patient instructed on Eliminating Environmental Hazards: Keep pathways clear, Remove unsafe rugs, Move furniture from pathways, Keep rooms and walkways well lit and Install hand rails/grab bars Managing Impaired Functional Mobility: Use assistive device(s): single point cane Managing Pain Instruct on pain and instruct on strategies to control pain Problem:Pain Goal:Manage Pain Completed patient instructed on techniques to control pain including Pharmacological measures and Non-Pharmacological measures; rest, positioning/elevation and use of thermal modalities, apply ice to affected area Physical Therapy Therapeutic Exercises Problem:PT Impaired muscle performance and/or ROM Goal:Improved Muscle Performance and/or ROM Completed patient instructed on strengthening exercises including carey heel toe raises, hip abd and flexion, hams curls and 1/4 squats x's 15 each. step ups x's 10 each with verbal cues for pace. patient instructed to perform home exercise program twice a day which included above ex. Physical Therapy Transfer Training Problem:PT Impaired mobility Goal:Improved Transfers Completed TIFF transfers with safe/proper technique Physical Therapy Bed Mobility Training Problem:PT Impaired mobility Goal:Improved Bed Mobility Completed TIFF bed mobility Physical Therapy Stair Training Problem:PT Impaired gait Goal:Improved Stair Climbing Completed up and down steps with rail and step together sequence Physical Therapy Gait Training Problem:PT Impaired gait Goal:Improved Gait Completed Indep amb with no ad in the home and st cane for outings x 200 Physical Therapy Balance Training Problem:PT Impaired balance Goal:Improved Balance Completed pt demonstrates imporved dynamic standing balance as evidenced by a tug of 12 Instruct on orthopedic precautions and weight bearing restrictions Description: Orthopedic precautions including left posterior hip: no hip flexion > 90 degrees, no adduction and no IR/ER rotation of involved extermity. Weight bearing restrictions include: WBAT of involved extremity. Problem:PT Orthopedic Condition Goal:Manage Orthopedic Condition Completed patient instructed on orthopedic precautions and weight bearing restrictions. Instruct on management of edema Problem:PT Orthopedic Condition Goal:Manage Orthopedic Condition Completed Instruct patient on management of edema including elevation of LLE above the level of the heart and ice. Instruct on self-management of post surgical and/or non-surgical orthopedic intervention Problem:PT Orthopedic Condition Goal:Manage Orthopedic Condition Completed patient instructed on managagement of orthopedic condition, measures to avoid skin breakdown, staying well hydrated, eating foods with high protein, signs and symptoms of infection, signs and symptoms of DVT/PE and instructed on when to call provider. Instruct and educate on knowledge deficits Problem:PT Learning Assessment Goal:Demonstrate understanding of education Completed patient verbalize and/or demonstrate understanding of physical therapy education including orthopedic condition management, surgical precautions, pain management, fall prevention strategies, home safety, functional activity and home exercise program. Education methods include: verbal cues and written instructions. documented in this encounter [facility] for referral (narrative)* Diagnostic Procedure Only (Routine) - Authorized Specialty Diagnoses / Procedures Referred By Contact Referred To Contact MOLECULAR & FUNCTIONAL IMAGING Diagnoses 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 coronary artery of [place] heart without angina pectoris Procedures NM CARDIAC PERF STRESS/PHARM MYOCARDIAL SPECT MULTIPLE STUDIES Son Banks MD [address] [place] [id number] Molecular & Functional Imaging [address] [place] [address] Referral ID Status Reason Start Date Expiration Date Visits Requested Visits Authorized [id number] Authorized Auto-Generat ed Referral 01/08/2023 02/07/2024 1 1 [facility] for referral (narrative)* Diagnostic Procedure Only (Routine) - Closed Specialty Diagnoses / Procedures Referred By Contac t Referred To Contact XR IMAGING Diagnoses Lumbar pain Procedures XR LUMBAR GENERAL 3V AP/LAT/L5-S1 RADEX SPINE LUMBOSACRAL 2/3 VIEWS Josue Aguilera MD [facility] [place] [address] Xr Imaging [place] [id number] Referral ID Status Reason Start Date Expiration Date V isits Requested Visits Authorized [id number] Closed Auto-Generate d Referral 09/14/2022 10/14/2023 1 1 [facility] for referral (narrative)* Diagnostic Procedure Only (Routine) - Closed Specialty Diagnoses / Procedures Referred By Contac t Referred To Contact XR IMAGING Diagnoses Left knee pain, unspecified chronicity Procedures XR KNEE GENERAL 4V AP BOTH/PA BOTH/LAT/MERC LEFT XR KNEE GENERAL 4V AP BOTH/PA BOTH/LAT/MERC LEFT RADIOLOGIC EXAM KNEE COMPLETE 4/MORE VIEWS SuppMichaela shah APRN.OB/GYN DOCTOR [address] [place] [address] [place] [address] Referral ID Status Reason Start Date Expiration Date V isits Requested Visits Authorized [id number] Closed Auto-Generate d Referral 09/02/2024 10/02/2025 1 1 * Diagnostic Procedure Only (Routine) - Closed Specialty Diagnoses / Procedures Referred By Elena chavez Referred To Contact XR IMAGING Diagnoses Left hip pain Procedures XR HIP GENERAL 3V PELV/AP/LAT LEFT XR HIP GENERAL 3V PELV/AP/LAT LEFT RADEX HIP UNILATERAL WITH PELVIS 2-3 VIEWS Michaela Heart APRN.OB/GYN DOCTOR [address] [place] [address] [place] [address] Referral ID Status Reason Start Date Expiration Date V isits Requested Visits Authorized [id number] Closed Auto-Generate d Referral 09/02/2024 10/02/2025 1 1 [facility] [place] for referral (narrative)* Outpatient Procedure (Routine) - New Request Specialty Diagnoses / Procedures Referred By Elena chavez Referred To Contact [facility] Diagnoses Pre-operative examination Procedures ECG COMPLETE ECG ROUTINE ECG W/LEAST 12 LDS W/I&R Molly Roy APRN.OB/GYN DOCTOR [address] [place] [address] [facility] [address] [place] [address] Referral ID Status Reason Start Date Expiration Date Visits Requested Visits Authorized [id number] New Request Auto-Generat ed Referral 12/10/2024 12/10/2025 1 1 [facility] [place] for referral (narrative)No reason for referral information [facility] Work Phone: Reason for visit Narrative* Diagnostic Procedure Only (Routine) - Closed Specialty Diagnoses / Procedures Referred By Contact Referred To Contact [facility] Diagnoses 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 coronary artery of [place] heart without angina pectoris Procedures NM CARDIAC PERF STRESS/PHARM MYOCARDIAL SPECT MULTIPLE STUDIES Son Banks MD [address] [place] [address] [facility] [address] [place], [place] [id number] Referral ID Status Reason Start Date Expiration Date V isits Requested Visits Authorized [id number] Closed Auto-Generate d Referral 01/08/2023 02/07/2024 1 1 [facility] [place] for visit Narrative* Diagnostic Procedure Only (Routine) - Closed Specialty Diagnoses / Procedures Referred By Contac t Referred To Contact XR IMAGING Diagnoses Lumbar pain Procedures XR LUMBAR GENERAL 3V AP/LAT/L5-S1 RADEX SPINE LUMBOSACRAL 2/3 VIEWS Josue Aguilera MD [address] [place] [address] [place] [address] Referral ID Status Reason Start Date Expiration Date V isits Requested Visits Authorized [id number] Closed Auto-Generate d Referral 09/14/2022 10/14/2023 1 1 [facility] [place] for visit Narrative* Diagnostic Procedure Only (Routine) - Closed Specialty Diagnoses / Procedures Referred By Contac t Referred To Contact XR IMAGING Diagnoses Left hip pain Procedures XR HIP GENERAL 3V PELV/AP/LAT LEFT XR HIP GENERAL 3V PELV/AP/LAT LEFT RADEX HIP UNILATERAL WITH PELVIS 2-3 VIEWS Michaela Heart, [employer]AL [employer]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.OB/GYN DOCTOR [address] [place] [address] [place] [address] Referral ID Status Reason Start Date Expiration Date V isits Requested Visits Authorized [id number] Closed Auto-Generate d Referral 09/02/2024 10/02/2025 1 1 [facility] [place] for visit Narrative* Auth/Cert (Routine) Specialty Diagnoses / Procedures Referred By Contac t Referred To Contact HOME CARE SERVICES [facility] [address] [place] [id number] Phone: tel: Referral ID Status Reason Start Date Expiration Date Visits Re quested Visits Authorized [id number] 1 1 [facility] Diagnostic Procedure Only (Routine) - Closed Specialty Diagnoses / Procedures Referred By Elena chavez Referred To Contact XR IMAGING Diagnoses Primary osteoarthritis of left hip Status post left hip replacement Procedures XR HIP GENERAL 3V PELV/AP/LAT LEFT RADEX HIP UNILATERAL WITH PELVIS 2-3 VIEWS Luis Marino PA-C [address] [place] [address] Phone: tel: fax: [place] [address] Referral ID Status Reason Start Date Expiration Date V isits Requested Visits Authorized [id number] Closed Auto-Generate d Referral 12/02/2024 01/01/2026 1 1 [facility] Summary Purpose Family History No Family History Records Found Relationship Condition Age at Onset Recorded Date/T albert Unknown Family History?No pe rtinent history Unknown August 18, 2014 5:41pm Advance Directives No Advanced Directives Records Found Advance Directive Response Recorded Date/ Time Advance Directives Yes August 18, 2014 11:27am Living Will No June 20, 2022 2:18am Power of Mica Plate Layer No June 20 2:18am Date Activated Date Inactivated Comments 01/07/2025 10:53 AM Date Activated Date Inactivated Comments 01/07/2025 10:53 AM Advance Directive Response Recorded Date/ Time Living Will No January 23, 2025 4:36pm Power of Mica Plate Layer No January 23 4:36pm Advance Directives Yes August 18, 2014 11:27am Chief Complaint and Reason for Visit Chief Complaint cp Chief Complaint Admit Date dizzness January 23, 2025 3:2 4pm Reason for Referral Specialty Diagnoses / Procedures Referred By Elena chavez Referred To Contact [facility] Diagnoses Lumbar pain Procedures CONSULT TO PHYSICAL THERAPY PHYSICAL THERAPY EVALUATION HIGH COMPLEX 45 MINS THERAPEUTIC EXERCISES RE, EA 15 MIN. Josue Aguilera MD [address] [place] [address] [facility] [address] [place] [address] Referral ID Status Reason Start Date Expiration Date Visits Requested Visits Authorized [id number] Authorized Auto-Generat ed Referral 11/12/2021 11/11/2022 99 99 Specialty Diagnoses / Procedures Referred By Contac t Referred To Contact XR IMAGING Diagnoses Lumbar pain Procedures XR LUMBAR GENERAL 3V AP/LAT/L5-S1 RADEX SPINE LUMBOSACRAL 2/3 VIEWS Josue Aguilera MD [address] [place] [address] Xr Imaging Referral ID Status Reason Start Date Expiration Date V isits Requested Visits Authorized [id number] Closed Auto-Generate d Referral 09/14/2022 10/14/2023 1 1 Specialty Diagnoses / Procedures Referred By Contac t Referred To Contact Cardiology Diagnoses S/P right coronary artery (RCA) stent placement 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 coronary artery of [place] heart without angina pectoris Procedures CONSULT TO CARDIOLOGY OFFICE/OUTPATIENT [facility] MDM 60 MINUTES Josue Aguilera MD [address] [place] [address] Referral ID Status Reason Start Date Expiration Date Visits Requested Visits Authorized [id number] Authorized PCP Requested Referral 05/28/2024 05/28/2025 1 1 Specialty Diagnoses / Procedures Referred By Contac t Referred To Contact [facility] Diagnoses Status post left hip replacement Procedures CONSULT TO PHYSICAL THERAPY PHYSICAL THERAPY EVALUATION HIGH COMPLEX 45 MINS Ravin Hough MD [address] [place] [address] [facility] [address] [place] [address] Referral ID Status Reason Start Date Expiration Date Visits Requested Visits Authorized [id number] Pending Review Auto-Generat ed Referral 10/07/2025 1 1 Health Concerns Infection Onset Date Last Indicated Resolved Time COVID-19 Confirmed 10/03/2023 10/03/2023 Additional Source Comments (unrecognized sect ion and content) No Status Records FoundNo Status Records FoundNo Status Records FoundNo Status Records FoundNo Status Records Found INFORMATION SOURCE (unrecogn ized section and content) DATE CREATED AUTHOR 04/24/2019 [facility] DATE CREATED AUTHOR AUTHOR'S ORGANIZ ATION 02/19/2021 [facility] DATE CREATED AUTHOR AUTHOR'S ORGANIZ ATION [facility]20[facility] DATE CREATED AUTHOR AUTHOR'S ORGANIZ ATION 04/09/2025 [facility] DATE CREATED AUTHOR AUTHOR'S ORGANIZ ATION 04/09/2025 [facility] Source Comments (unrecognize d section and content) In the event this informatio n is protected by the Federal Confidentiality of Alcohol and Drug Abuse Patient Records regulations: The Federal rules restrict any use of the information to criminally investigate or prosecute any alcohol or drug abuse patient.[facility] the event this information is protected by the Federal Confidentiality of Alcohol and Drug Abuse Patient Records regulations: The Federal rules restrict any use of the information to criminally investigate or prosecute any alcohol or drug abuse patient.[facility] the event this information is protected by the Federal Confidentiality of Alcohol and Drug Abuse Patient Records regulations: The Federal rules restrict any use of the information to criminally investigate or prosecute any alcohol or drug abuse patient.[facility] HospitalIn the event this information is protected by the Federal Confidentiality of Alcohol and Drug Abuse Patient Records regulations: The Federal rules restrict any use of the information to criminally investigate or prosecute any alcohol or drug abuse patient.[facility] the event this information is protected by the Federal Confidentiality of Alcohol and Drug Abuse Patient Records regulations: The Federal rules restrict any use of the information to criminally investigate or prosecute any alcohol or drug abuse patient.[facility]In the event this information is protected by the Federal Confidentiality of Alcohol and Drug Abuse Patient Records regulations: The Federal rules restrict any use of the information to criminally investigate or prosecute any alcohol or drug abuse patient.[facility] the event this information is protected by the Federal Confidentiality of Alcohol and Drug Abuse Patient Records regulations: The Federal rules restrict any use of the information to criminally investigate or prosecute any alcohol or drug abuse patient.[facility] the event this information is protected by the Federal Confidentiality of Alcohol and Drug Abuse Patient Records regulations: The Federal rules restrict any use of the information to criminally investigate or prosecute any alcohol or drug abuse patient.[facility] HospitalIn the event this information is protected by the Federal Confidentiality of Alcohol and Drug Abuse Patient Records regulations: The Federal rules restrict any use of the information to criminally investigate or prosecute any alcohol or drug abuse patient.[facility] HospitalIn the event this information is protected by the Federal Confidentiality of Alcohol and Drug Abuse Patient Records regulations: The Federal rules restrict any use of the information to criminally investigate or prosecute any alcohol or drug abuse patient.[facility]In the event this information is protected by the Federal Confidentiality of Alcohol and Drug Abuse Patient Records regulations: The Federal rules restrict any use of the information to criminally investigate or prosecute any alcohol or drug abuse patient.[facility] the event this information is protected by the Federal Confidentiality of Alcohol and Drug Abuse Patient Records regulations: The Federal rules restrict any use of the information to criminally investigate or prosecute any alcohol or drug abuse patient.[facility] HospitalIn the event this information is protected by the Federal Confidentiality of Alcohol and Drug Abuse Patient Records regulations: The Federal rules restrict any use of the information to criminally investigate or prosecute any alcohol or drug abuse patient.[facility] HospitalIn the event this information is protected by the Federal Confidentiality of Alcohol and Drug Abuse Patient Records regulations: The Federal rules restrict any use of the information to criminally investigate or prosecute any alcohol or drug abuse patient.[facility] HospitalIn the event this information is protected by the Federal Confidentiality of Alcohol and Drug Abuse Patient Records regulations: The Federal rules restrict any use of the information to criminally investigate or prosecute any alcohol or drug abuse patient.[facility] HospitalIn the event this information is protected by the Federal Confidentiality of Alcohol and Drug Abuse Patient Records regulations: The Federal rules restrict any use of the information to criminally investigate or prosecute any alcohol or drug abuse patient.[facility]In the event this information is protected by the Federal Confidentiality of Alcohol and Drug Abuse Patient Records regulations: The Federal rules restrict any use of the information to criminally investigate or prosecute any alcohol or drug abuse patient.[facility] HospitalIn the event this information is protected by the Federal Confidentiality of Alcohol and Drug Abuse Patient Records regulations: The Federal rules restrict any use of the information to criminally investigate or prosecute any alcohol or drug abuse patient.[facility] HospitalIn the event this information is protected by the Federal Confidentiality of Alcohol and Drug Abuse Patient Records regulations: The Federal rules restrict any use of the information to criminally investigate or prosecute any alcohol or drug abuse patient.[facility] HospitalIn the event this information is protected by the Federal Confidentiality of Alcohol and Drug Abuse Patient Records regulations: The Federal rules restrict any use of the information to criminally investigate or prosecute any alcohol or drug abuse patient.[facility] HospitalIn the event this information is protected by the Federal Confidentiality of Alcohol and Drug Abuse Patient Records regulations: The Federal rules restrict any use of the information to criminally investigate or prosecute any alcohol or drug abuse patient.[facility] HospitalIn the event this information is protected by the Federal Confidentiality of Alcohol and Drug Abuse Patient Records regulations: The Federal rules restrict any use of the information to criminally investigate or prosecute any alcohol or drug abuse patient.[facility] HospitalIn the event this information is protected by the Federal Confidentiality of Alcohol and Drug Abuse Patient Records regulations: The Federal rules restrict any use of the information to criminally investigate or prosecute any alcohol or drug abuse patient.[facility] HospitalIn the event this information is protected by the Federal Confidentiality of Alcohol and Drug Abuse Patient Records regulations: The Federal rules restrict any use of the information to criminally investigate or prosecute any alcohol or drug abuse patient.[facility] HospitalIn the event this information is protected by the Federal Confidentiality of Alcohol and Drug Abuse Patient Records regulations: The Federal rules restrict any use of the information to criminally investigate or prosecute any alcohol or drug abuse patient.[facility] HospitalIn the event this information is protected by the Federal Confidentiality of Alcohol and Drug Abuse Patient Records regulations: The Federal rules restrict any use of the information to criminally investigate or prosecute any alcohol or drug abuse patient.[facility] HospitalIn the event this information is protected by the Federal Confidentiality of Alcohol and Drug Abuse Patient Records regulations: The Federal rules restrict any use of the information to criminally investigate or prosecute any alcohol or drug abuse patient.[facility] HospitalIn the event this information is protected by the Federal Confidentiality of Alcohol and Drug Abuse Patient Records regulations: The Federal rules restrict any use of the information to criminally investigate or prosecute any alcohol or drug abuse patient.[facility] HospitalIn the event this information is protected by the Federal Confidentiality of Alcohol and Drug Abuse Patient Records regulations: The Federal rules restrict any use of the information to criminally investigate or prosecute any alcohol or drug abuse patient.[facility] HospitalIn the event this information is protected by the Federal Confidentiality of Alcohol and Drug Abuse Patient Records regulations: The Federal rules restrict any use of the information to criminally investigate or prosecute any alcohol or drug abuse patient.[facility] HospitalIn the event this information is protected by the Federal Confidentiality of Alcohol and Drug Abuse Patient Records regulations: The Federal rules restrict any use of the information to criminally investigate or prosecute any alcohol or drug abuse patient.[facility] HospitalIn the event this information is protected by the Federal Confidentiality of Alcohol and Drug Abuse Patient Records regulations: The Federal rules restrict any use of the information to criminally investigate or prosecute any alcohol or drug abuse patient.[facility] HospitalIn the event this information is protected by the Federal Confidentiality of Alcohol and Drug Abuse Patient Records regulations: The Federal rules restrict any use of the information to criminally investigate or prosecute any alcohol or drug abuse patient.[facility] HospitalIn the event this information is protected by the Federal Confidentiality of Alcohol and Drug Abuse Patient Records regulations: The Federal rules restrict any use of the information to criminally investigate or prosecute any alcohol or drug abuse patient.[facility] HospitalIn the event this information is protected by the Federal Confidentiality of Alcohol and Drug Abuse Patient Records regulations: The Federal rules restrict any use of the information to criminally investigate or prosecute any alcohol or drug abuse patient.[facility] HospitalIn the event this information is protected by the Federal Confidentiality of Alcohol and Drug Abuse Patient Records regulations: The Federal rules restrict any use of the information to criminally investigate or prosecute any alcohol or drug abuse patient.[facility] HospitalIn the event this information is protected by the Federal Confidentiality of Alcohol and Drug Abuse Patient Records regulations: The Federal rules restrict any use of the information to criminally investigate or prosecute any alcohol or drug abuse patient.[facility] HospitalIn the event this information is protected by the Federal Confidentiality of Alcohol and Drug Abuse Patient Records regulations: The Federal rules restrict any use of the information to criminally investigate or prosecute any alcohol or drug abuse patient.[facility] HospitalIn the event this information is protected by the Federal Confidentiality of Alcohol and Drug Abuse Patient Records regulations: The Federal rules restrict any use of the information to criminally investigate or prosecute any alcohol or drug abuse patient.[facility] HospitalIn the event this information is protected by the Federal Confidentiality of Alcohol and Drug Abuse Patient Records regulations: The Federal rules restrict any use of the information to criminally investigate or prosecute any alcohol or drug abuse patient.[facility] HospitalIn the event this information is protected by the Federal Confidentiality of Alcohol and Drug Abuse Patient Records regulations: The Federal rules restrict any use of the information to criminally investigate or prosecute any alcohol or drug abuse patient.[facility] HospitalIn the event this information is protected by the Federal Confidentiality of Alcohol and Drug Abuse Patient Records regulations: The Federal rules restrict any use of the information to criminally investigate or prosecute any alcohol or drug abuse patient.[facility] HospitalIn the event this information is protected by the Federal Confidentiality of Alcohol and Drug Abuse Patient Records regulations: The Federal rules restrict any use of the information to criminally investigate or prosecute any alcohol or drug abuse patient.[facility] HospitalIn the event this information is protected by the Federal Confidentiality of Alcohol and Drug Abuse Patient Records regulations: The Federal rules restrict any use of the information to criminally investigate or prosecute any alcohol or drug abuse patient.[facility] HospitalIn the event this information is protected by the Federal Confidentiality of Alcohol and Drug Abuse Patient Records regulations: The Federal rules restrict any use of the information to criminally investigate or prosecute any alcohol or drug abuse patient.[facility] HospitalIn the event this information is protected by the Federal Confidentiality of Alcohol and Drug Abuse Patient Records regulations: The Federal rules restrict any use of the information to criminally investigate or prosecute any alcohol or drug abuse patient.[facility] HospitalIn the event this information is protected by the Federal Confidentiality of Alcohol and Drug Abuse Patient Records regulations: The Federal rules restrict any use of the information to criminally investigate or prosecute any alcohol or drug abuse patient.[facility] HospitalIn the event this information is protected by the Federal Confidentiality of Alcohol and Drug Abuse Patient Records regulations: The Federal rules restrict any use of the information to criminally investigate or prosecute any alcohol or drug abuse patient.[facility] HospitalIn the event this information is protected by the Federal Confidentiality of Alcohol and Drug Abuse Patient Records regulations: The Federal rules restrict any use of the information to criminally investigate or prosecute any alcohol or drug abuse patient.[facility] HospitalIn the event this information is protected by the Federal Confidentiality of Alcohol and Drug Abuse Patient Records regulations: The Federal rules restrict any use of the information to criminally investigate or prosecute any alcohol or drug abuse patient.[facility] HospitalIn the event this information is protected by the Federal Confidentiality of Alcohol and Drug Abuse Patient Records regulations: The Federal rules restrict any use of the information to criminally investigate or prosecute any alcohol or drug abuse patient.[facility] HospitalIn the event this information is protected by the Federal Confidentiality of Alcohol and Drug Abuse Patient Records regulations: The Federal rules restrict any use of the information to criminally investigate or prosecute any alcohol or drug abuse patient.[facility] HospitalIn the event this information is protected by the Federal Confidentiality of Alcohol and Drug Abuse Patient Records regulations: The Federal rules restrict any use of the information to criminally investigate or prosecute any alcohol or drug abuse patient.[facility] HospitalIn the event this information is protected by the Federal Confidentiality of Alcohol and Drug Abuse Patient Records regulations: The Federal rules restrict any use of the information to criminally investigate or prosecute any alcohol or drug abuse patient.[facility] HospitalIn the event this information is protected by the Federal Confidentiality of Alcohol and Drug Abuse Patient Records regulations: The Federal rules restrict any use of the information to criminally investigate or prosecute any alcohol or drug abuse patient.[facility] Reason for Visit (unrecogniz ed section and content) Reason Comments 6 Month Exam Reason Onset Date Comments Refill Request 07/20/2022 Reason Comments 6 Month Exam Reason Onset Date Comments Refill Request 10/18/2022 Reason Comments Follow Up Reason Onset Date Comments Refill Request 01/08/2023 Reason Onset Date Comments Population Health Navigation Outreach 04/25/2023 [employer] Gaps 5.30.23 Reason Comments Hypertension Reason Comments Results Reason Comments Patient Request Reason Comments 6 Month Exam Reason Comments Diabetes Reason Onset Date Comments Refill Request 07/01/2024 Reason Comments Patient Question Reason Comments Diabetes 3 month exam Reason Onset Date Comments Refill Request 10/06/2024 Reason Comments New Specialty Diagnoses / Procedures Referred By Contac t Referred To Contact Orthopedics Diagnoses Primary osteoarthritis of left hip Procedures CONSULT TO ORTHOPAEDICS OFFICE/OUTPATIENT NEW HIGH MDM 60 MINUTES Michaela Heart, CENTRAL SU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.OB/GYN DOCTOR [address] [place] [address] Referral ID Status Reason Start Date Expiration Date V isits Requested Visits Authorized [id number] Closed PCP Requested Referral 09/08/2024 09/08/2025 1 1 Reason Comments Schedule Surgery Reason Comments Results influenza Reason Comments Consult Reason Onset Date Comments Assessment 12/29/2024 Reason Comments Home Care Confirmation Call Reason Onset Date Comments Transition Of Care 01/06/2025 Initial Reason Comments Follow Up Hip Replacement foll ow up Reason Onset Date Comments Transition Of Care 01/20/2025 Follow up Reason Onset Date Comments Transition Of Care 02/04/2025 Follow up Care Teams (unrecognized sec tion and content) Overhead Crane Inspector Relationship Specialty Start Date End Date Josue Aguilera MD [address] [facility] [place] [address] PCP - General Family Practice 09/09/15 Overhead Crane Inspector Relationship Specialty Start Date End Date Josue Aguilera MD [address] [facility] [place] [address] PCP - General Family Practice 09/09/15 Overhead Crane Inspector Relationship Specialty Start Date End Date Josue Aguilera MD [address] [place] [address], [place] [address] PCP - General Family Medicine 09/09/15 Overhead Crane Inspector Relationship Specialty Start Date End Date Josue Aguilera MD [address] [place] [address], [place] [address] PCP - General Family Medicine 09/09/15 Overhead Crane Inspector Relationship Specialty Start Date End Date Josue Aguilera MD [address] [place] [address], [place] [address] PCP - General Family Medicine 09/09/15 Overhead Crane Inspector Relationship Specialty Start Date End Date Josue Aguilera MD [address] [facility] [place] [address] PCP - General Family Medicine 09/09/15 Overhead Crane Inspector Relationship Specialty Start Date End Date Josue Aguilera MD [address] [place] [address], [place] [address] PCP - General Family Medicine 09/09/15 Overhead Crane Inspector Relationship Specialty Start Date End Date Josue Aguilera MD [facility] [place] [address] PCP - General Family Medicine 09/09/15 Overhead Crane Inspector Relationship Specialty Start Date End Date Josue Aguilera MD [address] [facility] [place], [place] [address] PCP - General Family Medicine 09/09/15 Overhead Crane Inspector Relationship Specialty Start Date End Date Josue Aguilera MD [address] [place], [place] [address]291 PCP - General Family Medicine 09/09/15 Overhead Crane Inspector Relationship Specialty Start Date End Date Josue Aguilera MD [address] [place] [address] PCP - General Family Medicine 09/09/15 Overhead Crane Inspector Relationship Specialty Start Date End Date Josue Aguilera MD [address] [place] [address] PCP - General Family Medicine 09/09/15 Overhead Crane Inspector Relationship Specialty Start Date End Date Josue Aguilera MD [address] [place] [address] PCP - General Family Medicine 09/09/15 Josue Aguilera MD [address] [place] [address] Referring Family Medicine 11/26/23 Overhead Crane Inspector Relationship Specialty Start Date End Date Josue Aguilera MD [address] [place] [address] PCP - General Family Medicine 09/09/15 Josue Aguilera MD [address] [place] [address] Referring Family Medicine 11/26/23 Overhead Crane Inspector Relationship Specialty Start Date End Date Josue Aguilera MD [address] [facility] [place] [address] PCP - General Family Medicine 09/09/15 Josue Aguilera MD [address] [facility] [place] [address] Referring Family Medicine 11/26/23 Overhead Crane Inspector Relationship Specialty Start Date End Date Josue Aguilera MD [address] [facility] [place] [address] PCP - General Family Medicine 09/09/15 Josue Aguilera MD [address] [facility] [place] [address] Referring Family Medicine 11/26/23 Overhead Crane Inspector Relationship Specialty Start Date End Date Josue Aguilera MD [address] [facility] [place] [address] PCP - General Family Medicine 09/09/15 Josue Aguilera MD [address] [facility] [place] [address] Referring Family Medicine 11/26/23 Overhead Crane Inspector Relationship Specialty Start Date End Date Josue Aguilera MD [address] [place] [address] PCP - General Family Medicine 09/09/15 Josue Aguilera MD [address] [place] [address] Referring Family Medicine 11/26/23 Overhead Crane Inspector Relationship Specialty Start Date End Date Josue Aguilera MD [address] [facility] [place] [address] PCP - General Family Medicine 09/09/15 Josue Aguilera MD [address] [place] [address] Referring Family Medicine 11/26/23 Overhead Crane Inspector Relationship Specialty Start Date End Date Josue Aguilera MD [address] [place] [address] PCP - General Family Medicine 09/09/15 Overhead Crane Inspector Relationship Specialty Start Date End Date Josue Aguilera MD [address] [place] [address] PCP - General Family Medicine 09/09/15 Overhead Crane Inspector Relationship Specialty Start Date End Date Josue Aguilera MD [address] [place] [address] PCP - General Family Medicine 09/09/15 Josue Aguilera MD [address] [place] [address] Referring Family Medicine 11/26/23 Overhead Crane Inspector Relationship Specialty Start Date End Date Josue Aguilera MD [address] [facility] [place] [address] PCP - General Family Medicine 09/09/15 Josue Aguilera MD [address] [place] [address] Referring Family Medicine 11/26/23 Overhead Crane Inspector Relationship Specialty Start Date End Date Josue Aguilera MD [address] [place], [place] [id number] PCP - General Family Medicine 09/09/15 Josue Aguilera MD [address] [place], [place] [address]229[address] Referring Family Medicine 11/26/23 Overhead Crane Inspector Relationship Specialty Start Date End Date Josue Aguilera MD [address] [place], [place] 263481 PCP - General Family Medicine 09/09/15 Josue Aguilera MD [address] [place], [place] [address] Referring Family Medicine 11/26/23 Overhead Crane Inspector Relationship Specialty Start Date End Date Josue Aguilera MD [address] [place], [place] 497581 PCP - General Family Medicine 09/09/15 Josue Aguilera MD [address] [place], [place] [address]03181 Referring Family Medicine 11/26/23 Lacey French APRN.OB/GYN DOCTOR [address] [place], [place] 978931 Director Product Development Family Medicine 10/20/24 Overhead Crane Inspector Relationship Specialty Start Date End Date Josue Aguilera MD [address] [place], [place] [address] PCP - General Family Medicine 09/09/15 Josue Aguilera MD [address] [place], [place] [address] Referring Family Medicine 11/26/23 Lacey French APRN.OB/GYN DOCTOR [address] [place] [address] Director Product Development Family [facility] 10/20/24 Michaela Heart APRN.OB/GYN DOCTOR [address] [place] [address] Director Product Development Family [facility] 10/20/24 Overhead Crane Inspector Relationship Specialty Start Date End Date Josue Aguilera MD [address] [place] [address] PCP - General Family Medicine 09/09/15 Josue Aguilera MD [address] [place] [address] Referring Family Medicine 11/26/23 Lacey French APRN.OB/GYN DOCTOR [address] [place] [address] Director Product Development Family [facility] 10/20/24 Michaela Heart APRN.OB/GYN DOCTOR [address] [place] [address] Director Product Development Family [facility] 10/20/24 Overhead Crane Inspector Relationship Specialty Start Date End Date Josue Aguilera MD [address] [place] [address] PCP - General Family Medicine 09/09/15 Josue Aguilera MD [address] [place] [address] Referring Family Medicine 11/26/23 Lacey French APRN.OB/GYN DOCTOR [address] [place] [address] Director Product Development Family Medicine 10/20/24 Michaela Heart APRN.OB/GYN DOCTOR [address] [place] [address] Director Product Development Family [facility] 10/20/24 Overhead Crane Inspector Relationship Specialty Start Date End Date Josue Aguilera MD [address] [place] [address] PCP - General Family Medicine 09/09/15 Josue Aguilera MD [address] [place] [address] Referring Family Medicine 11/26/23 Lacey French APRN.OB/GYN DOCTOR [address] [place] [address] Director Product Development Family [facility] 10/20/24 Michaela Heart APRN.OB/GYN DOCTOR [address] [place] [address] [facility] 10/20/24 Overhead Crane Inspector Relationship Specialty Start Date End Date Josue Aguilera MD [address] [place] [address] PCP - General Family Medicine 09/09/15 Josue Aguilera MD [address] [facility] [place] [address] Referring Family Medicine 11/26/23 Lacey French APRN.OB/GYN DOCTOR [address] [facility] [place] [address] Director Product Development Family [facility] 10/20/24 Michaela Heart APRN.OB/GYN DOCTOR [address] [facility] [place] [address] Director Product Development Family [facility] 10/20/24 Karlie Campos, PT [address] [place] [address] Cook Mess Post Acute Care 01/01/25 Overhead Crane Inspector Relationship Specialty Start Date End Date Josue Aguilera MD [address] [place] [address] PCP - General Family Medicine 09/09/15 Josue Aguilera MD [address] [place] [address] Referring Family Medicine 11/26/23 Lacey French, CENTRAL SU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.OB/GYN DOCTOR [address] [place] [address] Director Product Development Family [facility] 10/20/24 Michaela Heart, CENTRAL SU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.OB/GYN DOCTOR [address] [place] [address] Director Product Development Family [facility] 10/20/24 Karlie Campos, PT [address] [place] [address] Cook Mess Post Acute Care 01/01/25 Marcos West, RN [address] [place] [address] Primary Care Rn Pain Management Internal Medicine 01/06/25 Overhead Crane Inspector Relationship Specialty Start Date End Date Josue Aguilera MD [address] [place] [address] PCP - General Family Medicine 09/09/15 Josue Aguilera MD [address] [place] [address] Referring Family Medicine 11/26/23 Lacey French, CARMEN.OB/GYN DOCTOR [address] [place] [address] Director Product Development Family Medicine 10/20/24 Michaela Heart APRN.OB/GYN DOCTOR [address] [place] [address] Director Product Development Family [facility] 10/20/24 Karlie Campos, PT [address] [place] [address] Cook Mess Post Acute Care 01/01/25 Marcos West, BLAIR [address] [place] [address] Primary Care Rn Pain Management Internal Medicine 01/06/25 Overhead Crane Inspector Relationship Specialty Start Date End Date Josue Aguilera MD [address] [place] [address] PCP - General Family Medicine 09/09/15 Josue Aguilera MD [address] [place] [address] Referring Family Medicine 11/26/23 Lacey French APRN.OB/GYN DOCTOR [address] [place] [address] Director Product Development Family Medicine 10/20/24 Michaela Heart APRN.OB/GYN DOCTOR [address] [place] [address] Director Product Development Family Medicine 10/20/24 Karlie Campos, PT [address] [place] [address] Cook Mess Post Acute Care 01/01/25 Marcos West, BLAIR [address] [place] [address] Primary Care Rn Pain Management Internal Medicine 01/06/25 Overhead Crane Inspector Relationship Specialty Start Date End Date Joseu Aguilera MD [address] [facility] [place] [address] PCP - General Family Medicine 09/09/15 Josue Aguilera MD [address] [facility] [place], [place] [address] Referring Family Medicine 11/26/23 Lacey French APRN.OB/GYN DOCTOR [address] [place] [address] Director Product Development Family [facility] 10/20/24 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 [address] [facility] [place] [address] Director Product Development Family Medicine 10/20/24 Karlie Campos, PT [address] [place] [address] Cook Mess Post Acute Care 01/01/25 Marcos West RN [address] [place] [id number] Primary Care Rn Pain Management Internal Medicine 01/06/25 Overhead Crane Inspector Relationship Specialty Start Date End Date Josue Aguilera MD [address] [place] [address] PCP - General Family Medicine 09/09/15 Josue Aguilera MD [address] [place] [address] Referring Family Medicine 11/26/23 Lacey French APRN.OB/GYN DOCTOR [address] [place] [address] Director Product Development Family [facility] 10/20/24 Michaela Heart APRN.OB/GYN DOCTOR [address] [facility] [place] [address] Director Product Development Family [facility] 10/20/24 Karlie Campos, PT [address] [place] [address] Cook Mess Post Acute Care 01/01/25 Marcos West, BLAIR [address] [place] [address] Primary Care Rn Pain Management Internal Medicine 01/06/25 Overhead Crane Inspector Relationship Specialty Start Date End Date Josue Aguilera MD [address] [place] [address] PCP - General Family Medicine 09/09/15 Josue Aguilera MD [address] [facility] [place] [address] Referring Family Medicine 11/26/23 Lacey French APRN.OB/GYN DOCTOR [address] [place] [address] Director Product Development Family [facility] 10/20/24 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 [address] [facility] [place] [address] Director Product Development Family [facility] 10/20/24 Karlie Campos, PT [address] [place], [place] 5571431 Cook Mess Post Acute Care 01/01/25 Marcos West RN [address] [place], [place] 6463031 Primary Care Rn Pain Management Internal Medicine 01/06/25 Overhead Crane Inspector Relationship Specialty Start Date End Date Josue Aguilera MD [address] [facility] [place], [place] [address] PCP - General Family Medicine 09/09/15 Josue Aguilera MD [address] [facility] [place], [place] [address] Referring Family Medicine 11/26/23 Lacey French APRN.OB/GYN DOCTOR [address] [place] [address] Director Product Development Family Medicine 10/20/24 Michaela Heart APRN.OB/GYN DOCTOR [address] [facility] [place] [address] Director Product Development Family Medicine 10/20/24 Karlie Campos, PT [address] [place] [address] Cook Mess Post Acute Care 01/01/25 Marcos West, RN [address] [place] [address] Primary Care Rn Pain Management Internal Medicine 01/06/25 Overhead Crane Inspector Relationship Specialty Start Date End Date Josue Aguilera MD [address] [facility] [place] [address] PCP - General Family Medicine 09/09/15 Josue Aguilera MD [address] [facility] [place], [place] [address] Referring Family Medicine 11/26/23 Lacey French APRN.OB/GYN DOCTOR [address] [place] [address] Director Product Development Family Medicine 10/20/24 Michaela Heart APRN.OB/GYN DOCTOR [address] [facility] [place] [address] Director Product Development Family [facility] 10/20/24 DannyGenesis Karlie, PT [address] [place] [address] Cook Mess Post Acute Care 01/01/25 Marcos West, RN [address] [place] [address] Primary Care Rn Pain Management Internal Medicine 01/06/25 Overhead Crane Inspector Relationship Specialty Start Date End Date Josue Aguilera MD [address] [place], [place] [address] PCP - General Family Medicine 09/09/15 Josue Aguilera MD [address] [place] [address] Referring Family Medicine 11/26/23 Lacey French, CENTRAL SU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.OB/GYN DOCTOR [address] [place] [address] [facility] 10/20/24 Michaela Heart, CENTRAL SU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.OB/GYN DOCTOR [address] [place] [address] Director Product Development Family [facility] 10/20/24 Marcos West, BLAIR [address] [place] [address] Primary Care Rn Pain Management Internal Medicine 01/06/25 Overhead Crane Inspector Relationship Specialty Start Date End Date Josue Aguilera MD [address] [place] [address] PCP - General Family Medicine 09/09/15 Josue Aguilera MD [address] [place] [address] Referring Family Medicine 11/26/23 Lacey French APRN.OB/GYN DOCTOR [address] [facility] [place] [address] Director Product Development Family [facility] 10/20/24 Michaela Heart APRN.OB/GYN DOCTOR [address] [place] [address] Director Product Development Family [facility] 10/20/24 Marcos West, BLAIR [address] [place] [address] Primary Care Rn Pain Management Internal Medicine 01/06/25 Overhead Crane Inspector Relationship Specialty Start Date End Date Josue Aguilera MD [address] [place] [address] PCP - General Family Medicine 09/09/15 Josue Aguilera MD [address] [place] [address] Referring Family Medicine 11/26/23 Lacey French, CARMEN.OB/GYN DOCTOR [address] [facility] [place] [address] Director Product Development Family [facility] 10/20/24 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 [address] [place] [address] Director Product Development Family Medicine 10/20/24 Marcos West, BLAIR [address] [place] [address] Primary Care Rn Pain Management Internal Medicine 01/06/25 02/04/25 Team Status: Active Member Role Status Dates Dr. Josue Aguilera MD Primary Care Provider Active Team Status: Inactive Member Role Status Dates Dr. Josue Aguilera MD Primary Care Provider Active Start: January 23, 2025 End: January 23, 2025 Dr. Bk Espinosa DO Emergency Provider Active Start: January 23, 2025 End: January 23, 2025 Overhead Crane Inspector Relationship Specialty Start Date End Date Josue Aguilera MD [address] [place], [place] [address] PCP - General Family Medicine 09/09/15 Josue Aguilera MD [address] [place], [place] [address] Referring Family Medicine 11/26/23 Lacey French APRN.OB/GYN DOCTOR [address] [place], [place] [id number] Director Product Development Family [facility] 10/20/24 Michaela Heart APRN.OB/GYN DOCTOR [address] [place], [place] [id number] Director Product Development Family [facility] 10/20/24 Goals (unrecognized section and content) Goals may be documented in a n alternate sectionGoals may be documented in an alternate section FOR RECORDS PERTAINING TO PATIENTS WHO ARE OR HAVE BEEN ENROLLED IN A CHEMICAL DEPENDENCY/SUBSTANCEABUSE PROGRAM, SOME INFORMATION MAY BE OMITTED. This clinical summary was aggregated from multiple sources. Caution should be exercised in using it in the provision of clinical care. This summary normalizes information from multiple sources, and as a consequence, information in this document may materially change the coding, format and clinical context of patient data. In addition, data may be omitted in some cases. CLINICAL DECISIONS SHOULD BE BASED ON THE PRIMARY CLINICAL RECORDS. [employer] provides no warranty or guarantee of the accuracy or completeness of information in this document.
[2025-06-05 22:30] VITALS: BP 144/66; PULSE 62; RESP 18; O2SAT 98
[2025-06-05 22:32] LABS: Hematocrit 40.2 % (40-54); Hemoglobin 13.3 g/dL (13.0-16.5); Immature Granulocytes Count 0.050 X10^3/uL (0.0-0.0); Mean Corp Hgb Conc 33.1 g/dL (32-36); Mean Corpuscular Volume 92.4 fL (80-94); Mean Platelet Vol. 10.6 fl (6.2-12.0); NRBC Flagged by Analyzer 0 % (0-5); Platelet Count 267 K/mm3 (150-450); RBC Distribution Width CV 13.7 % (11.6-14.6); RBC Distribution Width SD 47.0 fl (35.1-43.9); Red Blood Count 4.35 M/mm3 (4.6-6.2); White Blood Count 8.8 K/mm3 (4.4-11.0)
[2025-06-05 22:45] LABS: Anion Gap 14 (5-15); BUN 14 mg/dL (4-19); BUN/Creat Ratio 18.3 RATIO (10-20); Calcium,Total 9.3 mg/dL (7.6-11.0); Carbon Dioxide 25.1 mmol/L (21.0-32.0); Chloride 100 mmol/L (98-108); Estimated Creatinine Clearance 76.04 ml/min (50-250); Glucose 155 mg/dL (70-99); Magnesium 2.4 mg/dL (1.5-2.2); Potassium 4.0 mmol/L (3.3-5.1)
[2025-06-05 22:50] VITALS: BP 137/66; BP 143/70; BP 145/71; PULSE 60; PULSE 65; PULSE 76
[2025-06-05 23:40] VITALS: BP 164/83; PULSE 62; RESP 18; TEMP 36.6; O2SAT 96
== END 2025-06-05 23:51 | disposition home or self-care (01) ==
PROVIDERS: Emergency Provider Emergency Medicine; PCP Family Medicine; Visit Provider Emergency Medicine
DX: R55 Syncope and collapse (principal); E11.9 Type 2 diabetes mellitus without complications; I25.10 Atherosclerotic heart disease of native coronary artery without angina pectoris; Z87.891 Personal history of nicotine dependence; E78.5 Hyperlipidemia, unspecified; I49.3 Ventricular premature depolarization; E03.9 Hypothyroidism, unspecified; I10 Essential (primary) hypertension; R20.2 Paresthesia of skin
CPT/HCPCS: 70450; 80048; 83735; 84443; 85025; 93005; 99284; A4216